=== PATIENT | female | born 2005 | race Caucasian/White ===

== ENCOUNTER 2023-05-15 13:22 | Outpatient (OUT) | payer BC, SELFPAY ==
--- NOTE | 2023-05-15 13:28 | US_ITS ---
The [address] [address] Patient Name: REBECA BLACKBURN MRN: [id number] date: 2005 Sex: F Assigned Patient Location: US Current Patient Location: Accession/Order Number: [id number] Exam Date: 05/15/2023 13:29 Report Date: 05/15/2023 15:17 At the request of: NENITA ADAIR Procedure: US OB transvaginal EXAMINATION: US OB transvaginal HISTORY: MISSED MENSES COMPARISON: No relevant comparison available. FINDINGS: GESTATIONAL SAC: Present and normal appearing. YOLK SAC: Present and normal appearing. POLE: Present and normal appearing. CARDIAC: Present. UTERUS: Normal size and appearance. OVARIES: Right: Normal. Left: Corpus lutein cyst. CERVIX: 5.1 cm in length and closed. CUL-DE-SAC: Normal. OTHER: None. AGE BY LMP: 8 weeks 2 days YUDEL[place] BY LMP: 12/23/2023 AGE BY US CRL: 7 weeks 6 days YUDELKA BY US CRL: 12/26/2023 US/US OB transvaginal IMPRESSION: 1. Single live intrauterine . Electronically authenticated by: JAKE SHIELDS Date: 05/15/2023 15:17
== END 2023-05-15 13:23 | disposition home or self-care (01) ==
LOC: US 13:23
PROVIDERS: Visit Provider Obstetrics & Gynecology
DX: Z34.91 Encounter for supervision of normal pregnancy, unspecified, first trimester (principal); N92.6 Irregular menstruation, unspecified
CPT/HCPCS: 76817

== ENCOUNTER 2023-05-27 09:11 | Outpatient (OUT) | payer BC, SELFPAY ==
[2023-05-27 10:03] LABS: Estimated Average Glucose 97 mg/dL
[2023-05-27 10:10] LABS: BOX Test Sent Out Y
[2023-05-27 10:28] LABS: Basophils Percent Auto 0.2 % (0.2-2.0); Eosinophils Absolute Auto 0.1 10^3/uL (0.0-0.7); Eosinophils Percent Auto 2.1 % (0.9-7.0); Hematocrit 39.2 % (36.0-48.0); Immature Granulocytes Abs Auto 0.01 10^3/uL (0.00-0.03); Immature Granulocytes Pct Auto 0.2 % (0.0-0.5); Lymphocytes Absolute Auto 1.2 10^3/uL (1.2-3.8); Lymphocytes Percent Auto 24.1 % (20.5-60.0); Mean Corpuscular HGB Conc 33.2 g/dL (29.9-35.2); Mean Corpuscular Volume 87.5 fL (81.0-99.0); Monocytes Absolute Auto 0.3 10^3/uL (0.3-0.8); Monocytes Percent Auto 6.4 % (1.7-12.0); Neutrophils Absolute Auto 3.2 10^3/uL (1.4-6.5); Platelet Count 203 10^3/uL (150-450); Red Blood Count 4.48 10^6/uL (4.20-5.40); Red Cell Distribution Width 13.6 % (11.0-15.0); White Blood Count 4.8 10^3/uL (4.0-11.0)
[2023-05-27 10:39] LABS: Thyroid Stimulating Hormone 1.664 uIU/mL (0.516-4.130)
[2023-05-28 05:07] LABS: HCV Ab Non Reactive (Non Reactive); HIV Ab/p24 Ag Screen Non Reactive (Non Reactive); Rubella Antibodies, IgG 2.75 index (Immune >0.99)
[2023-05-28 06:08] LABS: HBsAg Screen Negative (Negative)
[2023-05-28 11:12] LABS: Rapid Plasma Reagin, Quant Non Reactive (NonRea<1:1)
== END 2023-05-27 09:12 | disposition home or self-care (01) ==
LOC: LAB 09:15
PROVIDERS: Visit Provider Obstetrics & Gynecology
DX: Z34.80 Encounter for supervision of other normal pregnancy, unspecified trimester (principal); N92.6 Irregular menstruation, unspecified
CPT/HCPCS: 36415; 83036; 84443; 85025; 86592; 86706; 86762; 86803; 86850; 86900; 86901; 87086; 87389

== ENCOUNTER 2023-05-29 17:17 | Outpatient (OUT) | payer BC, SELFPAY ==
--- NOTE | 2023-05-29 | US_ITS ---
[address] [address] Patient Name: REBECA BLACKBURN MRN: [id number] date: 2005 Sex: F Assigned Patient Location: US Current Patient Location: Accession/Order Number: [id number] Exam Date: 05/29/2023 17:50 Report Date: 05/30/2023 07:35 At the request of: NENITA ADAIR Procedure: US OB transvaginal EXAMINATION: US OB transvaginal HISTORY: BLEEDING IN EARLY O20.9 COMPARISON: 05/15/2023 FINDINGS: Dunham intrauterine gestation Gestational sac: 3.97 cm, 9 weeks 2 days CRL: 2.7 cm, 9 weeks 5 days Yolk sac: 4.6 mm Heart rate: 140 bpm Cervix: Closed, 5.6 cm. Clinical age: 10 weeks 2 days Clinical YUDELKA: 12/23/2023 Ultrasound age: 9 weeks 4 days Ultrasound YUDELKA: 12/28/2023 The ovaries are normal in size, contour and echotexture. 2.1 cm cystic area in the left ovary, corpus luteal cyst suspected Uterus is normal, anteverted. US/US OB transvaginal IMPRESSION: [place]ham intrauterine gestation measuring 9 weeks 4 days Electronically authenticated by: DEIRDRE BANGURA Date: 05/30/2023 07:35
== END 2023-05-29 17:18 | disposition home or self-care (01) ==
LOC: US 17:18
PROVIDERS: Visit Provider Obstetrics & Gynecology
DX: O20.9 Hemorrhage in early pregnancy, unspecified (principal); Z3A.09 9 weeks gestation of pregnancy
CPT/HCPCS: 76817

== ENCOUNTER 2023-08-11 10:37 | Outpatient (OUT) | payer BC, SELFPAY ==
--- NOTE | 2023-08-11 10:45 | US_ITS ---
[address] [address] Patient Name: REBECA BLACKBURN MRN: [id number] date: 2005 Sex: F Assigned Patient Location: US Current Patient Location: Accession/Order Number: [id number] Exam Date: 08/11/2023 11:10 Report Date: 08/11/2023 15:32 At the request of: NENITA ADAIR Procedure: US OB anatomy EXAMINATION: US OB anatomy, US OB transvaginal HISTORY: Second Trimester Z34.92 COMPARISON: No relevant comparison available. TECHNIQUE: Transabdominal sonographic examination was performed for obstetrical and evaluation. FINDINGS: Number: 1 Heart Rate: Not recorded (tech error); active fetus during examination. Amniotic Fluid Volume: Subjectively normal Placental Location: Posterior with complete previa. Cervix Length: 4.6 cm, closed. ANATOMY: Normal Structures -cerebellum, choroid plexus, cisterna magna, lateral cerebral ventricles, orbits, midline falx, hard palate, four-chamber heart, RVOT, LVOT, stomach, kidneys, bladder, umbilical cord insertion into abdomen, three-vessel cord, cervical spine, thoracic spine, lumbar spine, sacral spine, right upper extremity, left upper extremity, right lower extremity, left lower extremity. SUBOPTIMALLY SEEN: None ABNORMALITIES: None BIOMETRY: BPD: 4.9 cm 20 weeks 6 days HC: 18.5 cm 20 weeks 6 days AC: 14.7 cm 20 weeks 0 days FL: 3.5 cm 21 weeks 1 days EFW:361.9 grams; 29% FL/AC: 23.9 FL/BPD: 71.9 HC/AC: 1.3 GESTATIONAL AGE: Age by EDC: 20 weeks 6 days YUDELKA by EDC: 12/23/2023 Age by current US: 20 weeks 5 days YUDELKA by current US: 12/24/2023 US/US OB anatomy IMPRESSION: 1. Single live intrauterine with growth detailed above. Electronically authenticated by: JAKE SHIELDS Date: 08/11/2023 15:32
--- NOTE | 2023-08-11 10:45 | US_ITS ---
[address] [address] Patient Name: REBECA BLACKBURN MRN: [id number] date: 2005 Sex: F Assigned Patient Location: US Current Patient Location: Accession/Order Number: [id number] Exam Date: 08/11/2023 11:10 Report Date: 08/11/2023 15:32 At the request of: NENITA ADAIR Procedure: US OB transvaginal EXAMINATION: US OB anatomy, US OB transvaginal HISTORY: Second Trimester Z34.92 COMPARISON: No relevant comparison available. TECHNIQUE: Transabdominal sonographic examination was performed for obstetrical and evaluation. FINDINGS: Number: 1 Heart Rate: Not recorded (tech error); active fetus during examination. Amniotic Fluid Volume: Subjectively normal Placental Location: Posterior with complete previa. Cervix Length: 4.6 cm, closed. ANATOMY: Normal Structures -cerebellum, choroid plexus, cisterna magna, lateral cerebral ventricles, orbits, midline falx, hard palate, four-chamber heart, RVOT, LVOT, stomach, kidneys, bladder, umbilical cord insertion into abdomen, three-vessel cord, cervical spine, thoracic spine, lumbar spine, sacral spine, right upper extremity, left upper extremity, right lower extremity, left lower extremity. SUBOPTIMALLY SEEN: None ABNORMALITIES: None BIOMETRY: BPD: 4.9 cm 20 weeks 6 days HC: 18.5 cm 20 weeks 6 days AC: 14.7 cm 20 weeks 0 days FL: 3.5 cm 21 weeks 1 days EFW:361.9 grams; 29% FL/AC: 23.9 FL/BPD: 71.9 HC/AC: 1.3 GESTATIONAL AGE: Age by EDC: 20 weeks 6 days YUDELKA by EDC: 12/23/2023 Age by current US: 20 weeks 5 days YUDELKA by current US: 12/24/2023 US/US OB transvaginal IMPRESSION: 1. Single live intrauterine with growth detailed above. Electronically authenticated by: JAKE SHIELDS Date: 08/11/2023 15:32
--- OUTSIDE RECORDS SUMMARY | 2023-09-16 19:19 | XMS_ITS | CCD ---
Author Name Unknown Address [address] [place] [address] [address] [place] [address] Organization [facility] Care Team Providers Care Key Ringer Name Role Phone Mishel Dimas Unavailable MISHEL DIMAS Primary Care Unavailable Ahmet Moreno Admitting Unavailable Ahmet Moreno Attending Unavailable Ahmet Moreno Attending Unavailable MISHEL DIMAS Primary Care Unavailable Ahmet Moreno Admitting Unavailable DO Mishel Dimas Primary Care Provider DO Mishel Dimas Attending Provider [phone] Mishel Dimas Admitting Unavailable Mishel Dimas Attending Unavailable Mishel Dimsa Primary Care Unavailable JOSEPH ELIZABETH Attending Unavailable Allergies Allergy Classification Reported Allergen(s) Allergy Type Date of Onset Reaction(s) Facility (1 source) No Known Medication Allergies; Translations: [No Known Medication Allergies] Propensity to adverse reactions to drug (disorder) [facility] Repository Medications Current Medications Medication Drug Class(es) Dates Sig (Normalized) Sig (Original) 24 hr buPROPion hydrochloride 300 mg extended release oral tablet (6 sources) Aminoketone take 1 tablet by mouth every twenty-four hours buPROPion HCl ER (XL) 300 MG 1 tablet in the morning Orally Once a day for 90 day(s) Active cephalexin 500 mg oral capsule (1 source) Cephalosporin Antibacterial Start: 11-02-2021 take 500 mg by mouth three times daily Cephalexin Active 500 MG PO Three times daily 30 November 02, 2021 1:00am Etonogestrel (6 sources) Progestin Nexplanon Active famotidine 20 mg oral tablet (3 sources) Histamine-2 Receptor Antagonist Famotidine 20 MG take 1 tablet by mouth once daily for 14 days Oral for 14 Days Active ondansetron 4 mg disintegrating oral tablet (1 source) Serotonin-3 Receptor Antagonist Start: 11-02-2021 take 4 mg by mouth three times daily Ondansetron Active 4 MG PO Three times daily 9 November 02, 2021 1:00am Completed/Discontinued Medications Medication Drug Class(es) Dates Sig (Normalized) Sig (Original) ibuprofen 600 mg oral tablet (1 source) Nonsteroidal Anti-inflammatory Drug Start: 03-28-2020 End: 11-02-2021 Ibuprofen Discontinued 600 MG PO Every 6 hours March 28, 2020 12:00am November 02, 2021 7:03pm do not exceed 4 doses in a 24 hour period NIFEdipine 30 mg osmotic 24 hr extended release oral tablet (1 source) Dihydropyridine Calcium Channel Finn Start: 03-25-2020 End: 03-28-2020 take 1 tablet by mouth once daily Nifedipine (Procardia Xl) 30 mg Tablet Extended Release 24hr Discontinued 30 MG PO Daily March 25, 2020 12:00am March 28, 2020 1:56pm Vit 84-Etly-Npwwx-Dha ( + Dha) 28 mg iron- 975 mcg-200 mg Combo Pack (1 source) Start: 02-13-2020 End: 11-02-2021 take 1 tablet by mouth once daily Vit 28-Dosk-Burxm-Dha ( + Dha) 28 mg iron- 975 mcg-200 mg Combo Pack Discontinued 1 TAB PO Daily February 13, 2020 12:00am November 02, 2021 7:03pm Problems Problem Classification Problem Date Documented Date Episodic/Chronic Abdominal pain (2 sources) Right lower quadrant pain; Translations: [Right upper quadrant pain] Episodic Hemorrhage during ; abruptio placenta; placenta previa (1 source) Third trimester bleeding; Translations: [Antepartum hemorrhage, unspecified, third trimester] 02-15-2020 Episodic Menstrual disorders (15 sources) Menorrhagia; Translations: [Excessive and frequent menstruation with regular cycle] Onset: 07-31-2021 Resolved: 07-31-2021 Chronic Mood disorders (8 sources) Moderate major depression, single episode; Translations: [Major depressive disorder, single episode, moderate] Onset: 07-31-2021 Resolved: 07-31-2021 Chronic Other complications of (1 source) Obstetric investigative finding; Translations: [Supervision of other high risk pregnancies, unspecified trimester] 02-15-2020 Episodic Other complications of (1 source) Complication occurring during ; Translations: [Other specified related conditions, unspecified trimester] 02-15-2020 Episodic Other nutritional; endocrine; and metabolic disorders (1 source) Abnormal weight gain Episodic Other nutritional; endocrine; and metabolic disorders (1 source) Abnormal weight gain; Translations: [Abnormal weight gain] Onset: 03-26-2023 Episodic Other screening for suspected conditions (not mental disorders or infectious disease) (2 sources) Encounter for screening for other metabolic disorders; Translations: [Encounter for screening for cardiovascular disorders] Episodic Other upper respiratory infections (7 sources) Chronic sinusitis; Translations: [Chronic sinusitis, unspecified] Chronic Residual codes; unclassified (1 source) Gestation period, 29 weeks; Translations: [29 weeks gestation of ] 02-15-2020 Episodic Syncope (1 source) Near syncope; Translations: [Syncope and collapse] 11-02-2021 Episodic Urinary tract infections (1 source) Urinary tract infectious disease; Translations: [Urinary tract infection, site not specified] 11-02-2021 Episodic Results Test Name Value Interpretation Reference Range Facil ity Alanine aminotransferase [En zymatic activity/volume] in Serum or PlasmaOrdered By: Mishel Dimas on 03-26-2023 ALT [Catalytic activity/Vol] 13 U/L 7-52 [facility] Albumin [Mass/volume] in Ser um or Plasma by Bromocresol green (BCG) dye binding methoOrdered By: Mishel Dimas on 03-26-2023 Albumin BCG dye [Mass/Vol] 4.8 g/dL 3.5-5.7 [facility] Alkaline phosphatase [Enzyma tic activity/volume] in Serum or PlasmaOrdered By: Mishel Dimas on 03-26-2023 ALP [Catalytic activity/Vol] 60 U/L 34-104 [facility] Aspartate aminotransferase [ Enzymatic activity/volume] in Serum or PlasmaOrdered By: Mishel Dimas on 03-26-2023 AST [Catalytic activity/Vol] 18 U/L 13-39 [facility] Basophils Auto (Bld) [#/Vol] Ordered By: Mishel Dimas on 03-26-2023 Basophils (Bld) [#/Vol] 0.0 10*3/uL 0.0-0.2 [facility] Basophils/100 WBC Auto (Bld) Ordered By: Mishel Dimas on 03-26-2023 Basophils/100 WBC (Bld) 0.4 % . [facility] Bilirubin.total [Mass/volume ] in Serum or PlasmaOrdered By: Mishel Dimas on 03-26-2023 Bilirubin [Mass/Vol] 0.5 mg/dL 0.3-1.0 [facility] Calcium [Mass/volume] in Ser um or PlasmaOrdered By: Mishel Dimas on 03-26-2023 Calcium [Mass/Vol] 9.5 mg/dL 8.6-10.3 [facility] Carbon dioxide, total [Moles /volume] in Serum or PlasmaOrdered By: Mishel Dimas on 03-26-2023 CO2 [Moles/Vol] 27.7 mmol/L 21.0-31.0 [facility] Chloride [Moles/volume] in S griffin or PlasmaOrdered By: Mishel Dimas on 03-26-2023 Chloride [Moles/Vol] 107 mmol/L 98-107 [facility] Complete Blood Count Auto Di ffon 03-26-2023 Basophils (Bld) [#/Vol] 0.0 10*3/uL Normal 0.0-0.2 [facility] Comment on above: Order Comment: Reaso n for Exam Wellness examination;Screening for metabolic disorder;Screen Result Comment: PERF ORMED BY: [place] [address] PATHOLOGIST ENGLISH [employer]ER ELYSE WHIPPLE M.D. Performed By: #### T SH3 wRFLX, CMP, CBC #### [address] Basophils/100 WBC (Bld) 0.4 % Normal . [facility] Comment on above: Order Comment: Reaso n for Exam Wellness examination;Screening for metabolic disorder;Screen Performed By: #### T SH3 wRFLX, CMP, CBC #### [facility] [address] Eosinophils (Bld) [#/Vol] 0.1 10*3/uL Normal 0.0-0.45 [facility] Comment on above: Order Comment: Reaso n for Exam Wellness examination;Screening for metabolic disorder;Screen Performed By: #### T SH3 wRFLX, CMP, CBC #### [facility] [address] Eosinophils/100 WBC (Bld) 2.7 % Normal . [facility] Comment on above: Order Comment: Reaso n for Exam Wellness examination;Screening for metabolic disorder;Screen Performed By: #### T SH3 wRFLX, CMP, CBC #### [address] Erythrocyte distribution wid th (RBC) [Ratio] 15.2 % Normal 11.9-15.3 [facility] Comment on above: Order Comment: Reaso n for Exam Wellness examination;Screening for metabolic disorder;Screen Performed By: #### T SH3 wRFLX, CMP, CBC #### [address] Hematocrit (Bld) [Volume fraction] 39.5 % Normal 34.0-46.4 [facility] Comment on above: Order Comment: Reaso n for Exam Wellness examination;Screening for metabolic disorder;Screen Performed By: #### T SH3 wRFLX, CMP, CBC #### [facility] [address] [place] [address] Hemoglobin (Bld) [Mass/Vol] 13.3 g/dL Normal 11.8-15. 4 [facility] Comment on above: Order Comment: Reaso n for Exam Wellness examination;Screening for metabolic disorder;Screen Performed By: #### T SH3 wRFLX, CMP, CBC #### [facility] [address] [place] [address] Lymphocytes (Bld) [#/Vol] 1.4 10*3/uL Normal 1.00-4.8 [facility] Comment on above: Order Comment: Reaso n for Exam Wellness examination;Screening for metabolic disorder;Screen Performed By: #### T SH3 wRFLX, CMP, CBC #### [facility] [address] Lymphocytes/100 WBC (Bld) 35.6 % Normal . [facility] Comment on above: Order Comment: Reaso n for Exam Wellness examination;Screening for metabolic disorder;Screen Performed By: #### T SH3 wRFLX, CMP, CBC #### [facility] [address] MCH (RBC) [Entitic mass] 28.5 pg Normal 24.7-34.3 [facility] Comment on above: Order Comment: Reaso n for Exam Wellness examination;Screening for metabolic disorder;Screen Performed By: #### T SH3 wRFLX, CMP, CBC #### [address] MCV (RBC) [Entitic vol] 85.1 fL Normal 80-100 [facility] Comment on above: Order Comment: Reaso n for Exam Wellness examination;Screening for metabolic disorder;Screen Performed By: #### T SH3 wRFLX, CMP, CBC #### [address] Mean Corpuscular HGB Conc 33.5 g/dL Normal 32.0-35.0 [facility] Comment on above: Order Comment: Reaso n for Exam Wellness examination;Screening for metabolic disorder;Screen Performed By: #### T SH3 wRFLX, CMP, CBC #### [facility] [address] [place] [address] [place] Monocytes (Bld) [#/Vol] 0.2 10*3/uL Normal 0.0-0.8 [facility] Comment on above: Order Comment: Reaso n for Exam Wellness examination;Screening for metabolic disorder;Screen Performed By: #### T SH3 wRFLX, CMP, CBC #### [place] [address] [place] Monocytes/100 WBC (Bld) 5.3 % Normal . [facility] Comment on above: Order Comment: Reaso n for Exam Wellness examination;Screening for metabolic disorder;Screen Performed By: #### T SH3 wRFLX, CMP, CBC #### [facility] [address] [place] [address] [place] Neutrophils (Bld) [#/Vol] 2.2 10*3/uL Normal 1.8-7.7 [facility] Comment on above: Order Comment: Reaso n for Exam Wellness examination;Screening for metabolic disorder;Screen Performed By: #### T SH3 wRFLX, CMP, CBC #### [facility] [address] Neutrophils/100 WBC (Bld) 56.0 % Normal . [facility] Comment on above: Order Comment: Reaso n for Exam Wellness examination;Screening for metabolic disorder;Screen Performed By: #### T SH3 wRFLX, CMP, CBC #### [facility] [address] NRBC% 0.3 /100{WBC} Normal 0-0.5 [facility] Comment on above: Order Comment: Reaso n for Exam Wellness examination;Screening for metabolic disorder;Screen Performed By: #### T SH3 wRFLX, CMP, CBC #### [facility] [address] [place] [address] [place] Platelet mean volume (Bld) [Entitic vol] 9.4 fL Normal 6.3-10.7 [facility] Comment on above: Order Comment: Reaso n for Exam Wellness examination;Screening for metabolic disorder;Screen Performed By: #### T SH3 wRFLX, CMP, CBC #### [facility] [address] [place] [address] [place] Platelets (Bld) [#/Vol] 185 10*3/uL Normal 150-450 [facility] Comment on above: Order Comment: Reaso n for Exam Wellness examination;Screening for metabolic disorder;Screen Performed By: #### T SH3 wRFLX, CMP, CBC #### [facility] [address] [place] [address] [place] RBC (Bld) [#/Vol] 4.65 10*6/uL Normal 3.60-5.00 [facility] Comment on above: Order Comment: Reaso n for Exam Wellness examination;Screening for metabolic disorder;Screen Performed By: #### T SH3 wRFLX, CMP, CBC #### [facility] [address] WBC (Bld) [#/Vol] 3.9 10*3/uL Normal 3.8-11.6 [facility] Comment on above: Order Comment: Reaso n for Exam Wellness examination;Screening for metabolic disorder;Screen Performed By: #### T SH3 wRFLX, CMP, CBC #### [facility] [address] Comprehensive Metabolic Pane tamia 03-26-2023 Albumin [Mass/Vol] 4.8 g/dL Normal 3.5-5.7 [facility] Comment on above: Order Comment: Reaso n for Exam Wellness examination;Screening for metabolic disorder;Screen Performed By: #### T SH3 wRFLX, CMP, CBC #### [facility] [address] Albumin/Globulin [Mass ratio] 1.9 {ratio} Normal [facility] Comment on above: Order Comment: Reaso n for Exam Wellness examination;Screening for metabolic disorder;Screen Performed By: #### T SH3 wRFLX, CMP, CBC #### [facility] [address] ALP [Catalytic activity/Vol] 60 U/L Normal 34-104 [facility] Comment on above: Order Comment: Reaso n for Exam Wellness examination;Screening for metabolic disorder;Screen Performed By: #### T SH3 wRFLX, CMP, CBC #### [facility] [address] ALT [Catalytic activity/Vol] 13 U/L Normal 7-52 [facility] Comment on above: Order Comment: Reaso n for Exam Wellness examination;Screening for metabolic disorder;Screen Performed By: #### T SH3 wRFLX, CMP, CBC #### [facility] [address] Anion gap [Moles/Vol] 9.8 mmol/L Normal 6.0-15.0 [facility] Comment on above: Order Comment: Reaso n for Exam Wellness examination;Screening for metabolic disorder;Screen Performed By: #### T SH3 wRFLX, CMP, CBC #### [facility] [address] AST [Catalytic activity/Vol] 18 U/L Normal 13-39 [facility] Comment on above: Order Comment: Reaso n for Exam Wellness examination;Screening for metabolic disorder;Screen Performed By: #### T SH3 wRFLX, CMP, CBC #### [facility] [address] Bilirubin [Mass/Vol] 0.5 mg/dL Normal 0.3-1.0 [facility] Comment on above: Order Comment: Reaso n for Exam Wellness examination;Screening for metabolic disorder;Screen Performed By: #### T SH3 wRFLX, CMP, CBC #### [facility] [address] Calcium [Mass/Vol] 9.5 mg/dL Normal 8.6-10.3 [facility] Comment on above: Order Comment: Reaso n for Exam Wellness examination;Screening for metabolic disorder;Screen Performed By: #### T SH3 wRFLX, CMP, CBC #### [facility] [address] [place] [address] [place] Chloride [Moles/Vol] 107 mmol/L Normal 98-107 [facility] Comment on above: Order Comment: Reaso n for Exam Wellness examination;Screening for metabolic disorder;Screen Performed By: #### T SH3 wRFLX, CMP, CBC #### [facility] [address] [place] [id number] [place] CO2 [Moles/Vol] 27.7 mmol/L Normal 21.0-31.0 [facility] Comment on above: Order Comment: Reaso n for Exam Wellness examination;Screening for metabolic disorder;Screen Performed By: #### T SH3 wRFLX, CMP, CBC #### [facility] [address] [place] [id number] [facility] Creatinine [Mass/Vol] 0.74 mg/dL Normal 0.60-1.20 [facility] Comment on above: Order Comment: Reaso n for Exam Wellness examination;Screening for metabolic disorder;Screen Performed By: #### T SH3 wRFLX, CMP, CBC #### [facility] [address] [place] [address] [place] GFR/1.73 sq M.predicted MDRD (S/P/Bld) [Vol rate/Area] mL/min/{1.73_m2} Normal [facility] Comment on above: Order Comment: Reaso n for Exam Wellness examination;Screening for metabolic disorder;Screen Performed By: #### T SH3 wRFLX, CMP, CBC #### [facility] [address] Globulin (S) [Mass/Vol] 2.5 g/dL Normal [facility] Comment on above: Order Comment: Reaso n for Exam Wellness examination;Screening for metabolic disorder;Screen Performed By: #### T SH3 CourtneyFLX, CMP, CBC #### [facility] [address] Glucose [Mass/Vol] 85 mg/dL Normal 70-100 [facility] Comment on above: Order Comment: Reaso n for Exam Wellness examination;Screening for metabolic disorder;Screen Result Comment: [facility] Glucose Reference Range is dependent on time and content of last meal. Glucose of more than 200 mg/dL in a nonstressed, ambulatory subject supports the diagnosis of Diabetes Mellitus. ADA recommended reference range Performed By: #### T SH3 CourtneyFLX, CMP, CBC #### [facility] [address] [place] [address] [place] Potassium [Moles/Vol] 4.5 mmol/L Normal 3.5-5.1 [facility] Comment on above: Order Comment: Reaso n for Exam Wellness examination;Screening for metabolic disorder;Screen Performed By: #### T SH3 wRFLX, CMP, CBC #### [facility] [address] [place] [id number] [place] Protein [Mass/Vol] 7.3 g/dL Normal 6.4-8.9 [facility] Comment on above: Order Comment: Reaso n for Exam Wellness examination;Screening for metabolic disorder;Screen Performed By: #### T SH3 wRFLX, CMP, CBC #### [facility] [address] [place] [address] [place] Sodium [Moles/Vol] 140 mmol/L Normal 136-145 [facility] Comment on above: Order Comment: Reaso n for Exam Wellness examination;Screening for metabolic disorder;Screen Performed By: #### T SH3 wRFLX, CMP, CBC #### [facility] [address] [place] [address] [place] Urea nitrogen [Mass/Vol] 13 mg/dL Normal 7-25 [facility] Comment on above: Order Comment: Reaso n for Exam Wellness examination;Screening for metabolic disorder;Screen Performed By: #### T SH3 wRFLX, CMP, CBC #### [facility] [address] [place] [address] [place] Creatinine [Mass/volume] in Serum or PlasmaOrdered By: Mishel Dimas on 03-26-2023 Creatinine [Mass/Vol] 0.74 mg/dL 0.60-1.20 [facility] Eosinophils Auto (Bld) [#/Vo l]Ordered By: Mishel Dimas on 03-26-2023 Eosinophils (Bld) [#/Vol] 0.1 10*3/uL 0.0-0.45 [facility] Eosinophils/100 WBC Auto (Bl d)Ordered By: Mishel Dimas on 03-26-2023 Eosinophils/100 WBC (Bld) 2.7 % . [facility] Erythrocyte distribution wid th Auto (RBC) [Ratio]Ordered By: Mishel Dimas on 03-26-2023 Erythrocyte distribution wid th (RBC) [Ratio] 15.2 % 11.9-15.3 [facility] Globulin Calc (S) [Mass/Vol] Ordered By: Mishel Dimas on 03-26-2023 Globulin (S) [Mass/Vol] 2.5 g/dL [facility] Glucose [Mass/volume] in Ser um or PlasmaOrdered By: Mishel Dimas on 03-26-2023 Glucose [Mass/Vol] 85 mg/dL 70-100 [facility] Comment on above: ADA recommended refe rence rangeRandom Glucose Reference Range is dependent on time and content of last meal. Glucose of more than 200 mg/dL in a nonstressed, ambulatory subject supports the diagnosis of Diabetes Mellitus. Hematocrit Auto (Bld) [Volum e fraction]Ordered By: Mishel Dimas on 03-26-2023 Hematocrit (Bld) [Volume fraction] 39.5 % 3 4.0-46.4 [facility] Hemoglobin [Mass/volume] in BloodOrdered By: Mishel Dimas on 03-26-2023 Hemoglobin (Bld) [Mass/Vol] 13.3 g/dL 11.8-15. 4 [facility] Leukocytes [#/volume] correc rigoberto for nucleated erythrocytes in Blood by Automated counOrdered By: Mishel Dimas on 03-26-2023 WBC corrected for nucl RBC A uto (Bld) [#/Vol] 3.9 10*3/uL 3.8-11.6 [facility] Lymphocytes Auto (Bld) [#/Vo l]Ordered By: Mishel Dimas on 03-26-2023 Lymphocytes (Bld) [#/Vol] 1.4 10*3/uL 1.00-4.8 [facility] Lymphocytes/100 WBC Auto (Bl d)Ordered By: Mishel Dimas on 03-26-2023 Lymphocytes/100 WBC (Bld) 35.6 % . [facility] MCH Auto (RBC) [Entitic mass ]Ordered By: Mishel Dimas on 03-26-2023 MCH (RBC) [Entitic mass] 28.5 pg 24.7-34.3 [facility] MCHC Auto (RBC) [Mass/Vol]Or dered By: Mishel Dimas on 03-26-2023 MCHC (RBC) [Mass/Vol] 33.5 g/dL 32.0-35.0 [facility] MCV Auto (RBC) [Entitic vol] Ordered By: Mishel Dimas on 03-26-2023 MCV (RBC) [Entitic vol] 85.1 fL 80-100 [facility] Monocytes Auto (Bld) [#/Vol] Ordered By: Mishel Dimas on 03-26-2023 Monocytes (Bld) [#/Vol] 0.2 10*3/uL 0.0-0.8 [facility] Monocytes/100 WBC Auto (Bld) Ordered By: Mishel Dimas on 03-26-2023 Monocytes/100 WBC (Bld) 5.3 % . [facility] Neutrophils Auto (Bld) [#/Vo l]Ordered By: Mishel Dimas on 03-26-2023 Neutrophils (Bld) [#/Vol] 2.2 10*3/uL 1.8-7.7 [facility] Neutrophils/100 WBC Auto (Bl d)Ordered By: Mishel Dimas on 03-26-2023 Neutrophils/100 WBC (Bld) 56.0 % . [facility] No Panel InformationOrdered By: Mishel Dimas on 03-26-2023 Estimated GFR (CKD-EPI) > 60.0 mL/Min [facility] Creatinine Clearanc e (Chem N/A [facility] Nucleated erythrocytes [Pres ence] in Blood by Automated countOrdered By: Mishel Dimas on 03-26-2023 Nucleated RBC Auto Ql (Bld) 0.3 /100{WBC} 0-0.5 [facility] Platelet mean volume Auto (B ld) [Entitic vol]Ordered By: Mishel Dimas on 03-26-2023 Platelet mean volume (Bld) [Entitic vol] 9.4 fL 6.3-10.7 [facility] Platelets Auto (Bld) [#/Vol] Ordered By: Mishel Dimas on 03-26-2023 Platelets (Bld) [#/Vol] 185 10*3/uL 150-450 [facility] Potassium [Moles/volume] in Serum or PlasmaOrdered By: Mishel Dimas on 03-26-2023 Potassium [Moles/Vol] 4.5 mmol/L 3.5-5.1 [facility] Protein [Mass/volume] in Ser um or PlasmaOrdered By: Mishel Dimas on 03-26-2023 Protein [Mass/Vol] 7.3 g/dL 6.4-8.9 [facility] RBC Auto (Bld) [#/Vol]Ordere d By: Mishel Dimas on 03-26-2023 RBC (Bld) [#/Vol] 4.65 10*6/uL 3.60-5.00 [facility] Serum or plasma albumin/glob ulin mass ratioOrdered By: Mishel Dimas on 03-26-2023 Albumin/Globulin [Mass ratio] 1.9 {ratio} [facility] Serum or plasma anion gap de terminationOrdered By: Mishel Dimas on 03-26-2023 Anion gap [Moles/Vol] 9.8 mmol/L 6.0-15.0 [facility] Sodium [Moles/volume] in Ser um or PlasmaOrdered By: Mishel Dimas on 03-26-2023 Sodium [Moles/Vol] 140 mmol/L 136-145 [facility] Thyroid Stim Hormone w/Rflxo n 03-26-2023 Thyroid Stim Hormone w/Rflx 1.38 u[iU]/mL Normal 0.45-5.33 [facility] Comment on above: Order Comment: Reaso n for Exam Wellness examination;Screening for metabolic disorder;Screen Result Comment: PERF ORMED BY: [place] [address] PATHOLOGIST ENGLISH TEACHER ELYSE WHIPPLE M.D. Performed By: #### T SH3 wRFLX, CMP, CBC #### [address] Thyrotropin [Units/volume] i n Serum or PlasmaOrdered By: Mishel Dimas on 03-26-2023 TSH Qn 1.38 m[IU]/L 0.45-5.33 [facility] Urea nitrogen [Mass/volume] in Serum or PlasmaOrdered By: Mishel Dimas on 03-26-2023 Urea nitrogen [Mass/Vol] 13 mg/dL 04-22 [facility] WBC Auto (Bld) [#/Vol]Ordere d By: Mishel Dimas on 03-26-2023 WBC (Bld) [#/Vol] 3.9 10*3/uL 3.8-11.6 [facility] Coding Summaryon 07-25-2022 Coding Summary HTMLBase 64 RwevstjcYEq4cDq+[id number] biAv [file] OiB (more content not included)... Normal [facility] Coding Summary HTMLBase 64 AnxwtlfpDZb2tWr+[id number] biAv [file] b2x (more content not included)... Normal [facility] ED Clinical Summaryon 2021 ED Clinical Summary [facility] [address] [place] [address] ED Clinical Summary PERSON INFORMATION Name: REBECA BLACKBURN Age: 16 Years Sex: FEMALE : 2005 MRN: Acct#: Visit Reason: Chest pain; CHEST PAIN, HEADACHE Arrival: 07/19/2022 20:06:01 Discharge: 07/19/2022 22:07:00 LOS: 000 02:01 Check In: 07/19/2022 20:06:01 Checkout:07/19/2022 22:07:00 Address: [address] [place] [address] PCP: MISHEL DIMAS PROVIDER INFORMATION Provider Role Assigned Unassigned Talat Hardy MD ED Provider 07/19/2022 20:07:54 Tripp RN, Martha Martinez ED Nurse 07/19/2022 20:21:39 VITALS INFORMATION Vital Sign Triage Latest Temperature Tympanic 36.7 DegC 36.7 DegC Temperature Temporal Artery Pulse Rate 100 bpm 92 bpm O2 Sat 97 % 97 % Respiratory Rate 22 br/min 16 br/min Blood Pressure /97 mmHg /97 mmHg MEDICAL INFORMATION Medications Given: Allergy Information: No Known Medication Allergies; No known allergies PHYSICIAN DOCUMENTATION Patient: REBECA BLACKBURN Age: 16 years Sex: FEMALE : 2005 Associated Diagnoses: Elevated blood pressure reading; Acute chest pain; Abdominal pain, epigastric Author: Talat Hardy MD Basic Information Time seen: Date & time 07/19/2022 20:05:00. History source: Patient. Arrival mode: Private vehicle, walking. Additional information: Chief Complaint from Nursing Triage Note : Chief Complaint 07/19/2022 20:18 EDT Chief Complaint c/o midsternal chest pain, desc 'burning that comes up' Denies SOB or sweats. Denies med hx other than preg 2 yrs ago. No med hx or daily meds. Ongoing past few days. Took ibuprofen earlier today. LMP month and a half ago . History of Present Illness 16-year-old female presented to ER for evaluation of chest pain and upper abdominal pain. Patient stated that she noted onset of symptoms approximately 1 week ago, possibly on Friday. She describes it as a burning sensation in the midsternal area. She noted pain, at the midsternal and in the epigastrium. She related that this morning, she when she woke up she had recall having pain at the epigastric area. She stated that she has taken some ibuprofen earlier in the day for this. She stated that the pain feels like a menstrual cramp with in the upper abdominal region. She denies any associated nausea, vomiting or diarrhea. She reported having persistent symptoms, in the last several days and especially today, noted throughout the day with normal activity. She stated that she did had gone to [place] today, and noted throughout the day, intermittently. Patient had no other treatment prior to arrival. She related that she had heartburn when she was about 2 and half years ago. She stated that symptoms were moderate with she did not have to take anything for those at the time. She indicated that heartburn symptoms and this pain is the similar She also recall that about 2 weeks ago, she took a home test, was negative. She stated that her last menstrual period was May 27. She stated that she is using the regular. Stated that her brother age 13 has epilepsy. Hypertension runs in the family although she states that she does not know her biological father's medical history Review of Systems Constitutional symptoms: No fever, no chills, no sweats. Skin symptoms: No jaundice, no rash. Eye symptoms: Negative except as documented in HPI. ENMT symptoms: Negative except as documented in HPI. Respiratory symptoms: Negative except as documented in HPI. Cardiovascular symptoms: Chest pain. Gastrointestinal symptoms: Abdominal pain, no nausea, no vomiting, no diarrhea. Genitourinary symptoms: No dysuria, no vaginal bleeding. Musculoskeletal symptoms: No Muscle pain, Hematologic/Lymphatic symptoms: Negative except as documented in HPI. Health Status Allergies: Allergic Reactions (Selected) No known allergies No Known Medication Allergies. Medications: (Selected) Documented Medications Documented [facility] Prescription: 0 Refill(s) ibuprofen: 0 Refill(s). Past Medical/ Family/ Social History Medical history: No active or resolved past medical history items have been selected or recorded., Reviewed as documented in chart. Surgical history: No active procedure history items have been selected or recorded., Reviewed as documented in chart, Adenoids. Family history: No family history items have been selected or recorded., Reviewed as documented in chart. Social history: Social & Psychosocial Habits Alcohol 05/25/2019 Alcohol Use: Never 07/19/2022 Alcohol Use: Never Substance Abuse 05/25/2019 Substance use: Never 07/19/2022 Substance use: Never Tobacco 05/25/2019 Smoking tobacco use: Never (less than 100 in l 07/19/2022 Smoking tobacco use: Never tobacco user Electronic Cigarette/Vaping 07/19/2022 Electronic Cigarette Use: Never , Reviewed as documented in chart. Problem lis (more content not included)... Normal [facility] ED Patient Summaryon 022 ED Patient Summary [facility] - Emergency Department [address] [place] [address] PATIENT DISCHARGE INSTRUCTIONS Patient Information Name: REBECA BLACKBURN Age: 16 Years Date of : 2005 Reason For Visit: Chest pain; CHEST PAIN, HEADACHE Arrival Time: 07/19/2022 20:06:01 Primary Care Physician: MISHEL DIMAS Attending Physician: Ahmet Moreno DO Comment: Visit Diagnosis: Diagnoses This Visit Abdominal pain, epigastric (R10.13) Acute chest pain (R07.9) Chest pain (61131794) Elevated blood pressure reading (R03.0) The Pharmacy at [facility] is open Friday through Friday from 9A to 6P and Friday and Friday from 9A to 5P Prescription Information: If you have been given a prescription for narcotics, seek immediate medical attention if you have any difficulty breathing or any sudden status changes such as confusion and sleepiness. If you or anyone you know is experiencing suicidal thoughts, mental health, alcohol and/or drug addiction problems; contact the [facility] 21/04 Crisis Hotline -Text 9XCLF to 027699. If you received any narcotics, sedation, or any other medication that causes drowsiness for the next 24 hours, unless otherwise directed: ? Do not drive a car. ? Do not operate machinery such as power tools, lawn mowers, drills, sewing machines, or stoves ? Avoid alcoholic beverages and drugs for allergies, nerves, or sleep ? Do not make important personal or business decisions or sign any legal documents With: Address: When: MISHEL DIMAS [address] [place], [place] [address] Business (1) Within 3 to 5 days Comments: You were seen in the emergency department for chest pain. Diagnostic workup in the ER did not reveal an obvious cause for your chest pain. It does not appear to be cardiac related based on our findings. Additional diagnostic workup and evaluation may be necessary to explain your symptoms. You should followup with your family doctor or PCP within the recommended time for reevaluation as instructed. Return to ER if you have any recurrent chest pain that concerns you especially with weakness, shortness of breath, dizziness or any other unusual symptoms. You were found to have an elevated blood pressure reading in the emergency department. It is unclear if your reading today is because that you were seen in the emergency department with increased level of concerns or that your blood pressure is elevated and not adequately under control. You should check your blood pressure routinely, daily. Contact your primary care provider if your blood pressure reading is consistently elevated. Medication Information: The exam and treatment you received today in the [facility] Emergency Department were for an urgent problem and are not intended as complete care. It is important for you to follow up with a doctor, nurse practitioner, or physician?s learning support assistant for ongoing care. If your symptoms become worse or you do not improve as expected and you are unable to reach your usual health care provider, you should return to the Emergency Department, we are available 24 hours a day. For those patients who have received Radiology results, the interpretation of your X-ray as given to you by our Emergency Department physician is only a preliminary report. The Radiologist will review your films and if there is a change in the diagnosis you will be notified by phone. Please make sure you have provided a working phone number so we can reach you if necessary. In the event that you had a lab culture while you were a patient in the Emergency Department, you will be notified by phone if there is a need to change your antibiotic. Please make sure you have provided a working phone number so we can reach you if necessary. [facility] Emergency Department has provided you with a complete list of medications post discharge. Please inform your painter assistant/provider of your visit and for further instruction on these medications. Any specific questions regarding your chronic medications and dosages should be discussed with your primary care physician(s) and/or pharmacist. New Medications [id number], [address], [place] [id number], [phone] famotidine (famotidine 20 mg oral tablet) 1 tab(s) Oral every day for 14 Days. Refills: 0. Additional medications on your home medication list not specifically addressed. Please contact the ordering physician if you have questions about these medications. ibuprofen Misc Prescription Visit Information Allergies: Substance Reaction Symptoms Type Comments No known allergies Drug No Known Medication Allergies Drug Vital Signs: Vitals and Measurements this Visit (last charted value for your 07/19/2022 visit) Vital Signs This Visit Temperature Tympanic: 36.7 DegC Apical Heart Rate: 70 bpm Per (more content not included)... Normal [facility] Progress Note - Nurseon 10-2 Progress Note - Nurse Pt provided with both written and verbal discharge instructions as well as follow up information. Pt verbalizes understanding and denies further questions or needs. Pt changes into clothing independently and ambulates upon discharge without issues. [Electronically Signed on: 07/19/2022 22:06 EDT] Martha Almaguer RN [Verified on: 07/19/2022 22:06 EDT] Tripp RN, Martha M Normal [facility] .Auto Diff 1on 07-19-2022 Auto [place] % 8 % Normal 1-12 [facility] Comment on above: Performed By: #### 1 [id number], [id number], 61952709, 1089883236, 9229057, 9940851, 5103362816, 1730162495 #### [facility] (DEFAULT) [address] [place] [address]35 Baso Abs# 0.0 x10 Normal 0.0-0.2 [facility] Comment on above: Performed By: #### 1 [id number], 7033905014, 92985610, 1919552485, 6738350, 4799345, 8410393681, 8442947331 #### [facility] (DEFAULT) [address] [place] [address] 50556 Basophils/100 WBC (Bld) 0.2 % Normal 0.2-2.0 [facility] Comment on above: Performed By: #### 1 [id number], 0447197593, 19157156, 1403815632, 2530886, 6237315, 7198821777, 6261749039 #### [facility] (DEFAULT) [address] [place] [address] 35637 Eos Abs# 0.1 x10 Normal 0.0-0.4 [facility] Comment on above: Performed By: #### 1 [id number], 0198793535, 42471170, 4960298676, 9690297, 0032059, 2073452835, 0922895821 #### [facility] (DEFAULT) [address] [place] [address] 75226 Eosinophils/100 WBC (Bld) 1.8 % Normal 0.9-4.0 [facility] Comment on above: Performed By: #### 1 [id number], 5418943475, 01838394, 7515990875, 0733610, 5459724, 2376506176, 7098906786 #### [facility] (DEFAULT) [address] [place] [address] 83338 Lymph Abs# 2.5 x10 Normal 1.3-2.9 [facility] Comment on above: Performed By: #### 1 [id number], 1483128337, 68457720, 9368032515, 3283353, 6523546, 2447245459, 6728341172 #### [facility] (DEFAULT) [address] [place] [address] 48473 Lymphocytes/100 WBC (Bld) 44 % Normal 14-48 [facility] Comment on above: Performed By: #### 1 [id number], 7673575811, 59393884, 0082356940, 0464528, 4300094, 6615703806, 6367534016 #### [facility] (DEFAULT) [address] [place] [address] [place] Abs# 0.4 x10 Normal 0.0-0.8 [facility] Comment on above: Performed By: #### 1 [id number], 1361698873, 39335699, 7865745675, 8729087, 9274407, 4218419391, 1446940795 #### [facility] (DEFAULT) [address] [place] [address] 90954 Neut Abs# 2.6 x10 Normal 1.5-9.2 [facility] Comment on above: Performed By: #### 1 245323160, 3745133102, 54477105, 1407120426, 9813966, 7754566, 6038668656, 8933104270 #### [facility] (DEFAULT) [address] [place] [address] 45557 Neutrophils/100 WBC (Bld) 47 % Normal 44-88 [facility] Comment on above: Performed By: #### 1 780572806, 5956526390, 74570603, 0803719964, 1978806, 1222217, 3017100290, 7329944149 #### [facility] (DEFAULT) [address] [place] [address] 80290 CBC w/ Auto Diffon 2 Erythrocyte distribution wid th (RBC) [Ratio] 14.6 % Normal 11.5-15.0 [facility] l Comment on above: Performed By: #### 1 [id number], 7789268276, 34071066, 9898985418, 2937080, 8862311, 2141626602, 7536622448 #### [facility] (DEFAULT) [address] [place] [address] Hematocrit (Bld) [Volume fraction] 40.2 % Normal 3 3.7-40.4 [facility] Comment on above: Performed By: #### 1 [id number], 3405497195, 20747081, 1918232773, 1465469, 1798089, 0498634281, 2471320701 #### [facility] (DEFAULT) [address] [place] [address] Hemoglobin (Bld) [Mass/Vol] 13.0 g/dL Normal 11.3-15. 9 [facility] Comment on above: Performed By: #### 1 [id number], 8322099495, 86059033, 2307403003, 0259509, 4367719, 6891522779, 4002315593 #### [facility] (DEFAULT) [address] [place] [address] Instr WBC 5.7 x10 Invalid Interpretation Code [facility] Comment on above: Performed By: #### 1 758054572, 1101036527, 73288751, 2019412001, 5288009, 8407714, 0689574889, 5008528001 #### [facility] (DEFAULT) [address] [place] [address] 95095 Man Diff? Auto Normal [facility] Comment on above: Performed By: #### 1 [id number], 4248748638, 56841356, 3275526942, 0099154, 6996561, 2401433427, 3227194166 #### [facility] (DEFAULT) [address] [place], [place] [address] MCH (RBC) [Entitic mass] 27 pg Normal 24-34 [facility] Comment on above: Performed By: #### 1 042648704, 3182614289, 24070942, 6585953460, 2370670, 9631466, 1440828223, 9027844108 #### [facility] (DEFAULT) [address] [place] [address] MCHC (RBC) [Mass/Vol] 32 g/dL Normal 26-37 [facility] Comment on above: Performed By: #### 1 213786187, 6119738221, 64191951, 4041416660, 4977991, 6476836, 7355277127, 9570383153 #### [facility] (DEFAULT) [address] [place] [address] MCV (RBC) [Entitic vol] 84 fL Normal 81-100 [facility] Comment on above: Performed By: #### 1 585165597, 7307342425, 71435342, 1876906772, 6800614, 8430429, 3328183695, 2053538950 #### [facility] (DEFAULT) [address] [place] [address] Platelet 282 x10 Normal 138-427 [facility] Comment on above: Performed By: #### 1 566576125, 7096245749, 95426831, 8794180800, 3808467, 3412742, 7765001216, 5542276274 #### [facility] (DEFAULT) [address] [place] [address] Platelet mean volume (Bld) [Entitic vol] 10.7 fL High 6.3-10.2 [facility] Comment on above: Performed By: #### 1 945428772, 5697014307, 32029478, 7428770420, 1593866, 7952867, 3261217397, 9375167167 #### [facility] (DEFAULT) [address] [place] [address] RBC 4.78 x10 Normal 3.70-5.30 [facility] Comment on above: Performed By: #### 1 966311259, 7008310530, 98281779, 7013154322, 1665045, 7937323, 5082397382, 8046068069 #### [facility] (DEFAULT) [address] [place] [address] 63848 WBC 5.7 x10 Normal 3.5-10.5 [facility] Comment on above: Performed By: #### 1 144870628, 7476861547, 92307743, 9017768345, 6858192, 4571173, 8790577988, 5347165704 #### [facility] (DEFAULT) [address] [place] [address] 27940 [facility] Standardon 07-19-2022 eGFR Non AA >60 Invalid Interpretation Code [facility] Comment on above: Performed By: #### 1 980577539, 4054663500, 32085252, 2791209893, 4935325, 0852588, 3345390516, 4911758822 #### [facility] (DEFAULT) [address] [place] [address] 08333 eGFR AA >60 Invalid Interpretation Code [facility] Comment on above: Result Comment: Airline Security Representative nicki Kidney disease could be indicated at eGFRs of less than 60 ml/min/1.73m2. Kidney Failure is indicated at less than 15 ml/min/1.73m2 Performed By: #### 1 229220426, 0162659475, 44073220, 0790400577, 0008794, 1787013, 0565023856, 1698877271 #### [facility] (DEFAULT) [address] [place] [address] 78551 Albumin [Mass/Vol] 4.5 g/dL Normal 3.5-5.[address] [facility] Comment on above: Performed By: #### 1 409986328, 3936008735, 50085517, 5958376370, 7491407, 5297553, 9796740532, 3687844857 #### [facility] (DEFAULT) [address] [place] [address] 92415 Albumin/Globulin [Mass ratio] 1.3 {ratio} Low 1.4-2 .6 [facility] Comment on above: Performed By: #### 1 272066595, 4930618349, 80013871, 5791272138, 6756892, 3924595, 3725400463, 0666006093 #### [facility] (DEFAULT) [address] [place] [address] 07201 Alk Phos 63 IU/L Normal 32-91 [facility] Comment on above: Performed By: #### 1 010743603, 2890441377, 27738704, 7329202111, 7802188, 6409832, 1157176725, 4779369709 #### [facility] (DEFAULT) [address] [place] [address] 52834 ALT [Catalytic activity/Vol] 15.0 U/L Normal 8.0-29. 0 [facility] Comment on above: Performed By: #### 1 869656457, 1434034865, 68932116, 7318990543, 1259181, 9282976, 3753692286, 7008855206 #### [facility] (DEFAULT) [address] [place] [address] 49993 Anion gap [Moles/Vol] 12.0 mmol/L Normal 5.0-19.0 [facility] Comment on above: Performed By: #### 1 493469570, 4843219833, 02995147, 0300770477, 1967919, 7124366, 8360990945, 9789098923 #### [facility] (DEFAULT) [address] [place] [address] 59987 AST [Catalytic activity/Vol] 23 U/L Normal 14-37 [facility] Comment on above: Performed By: #### 1 620032137, 9691114472, 71314179, 8558534308, 6165756, 4464021, 7610302565, 1110871697 #### [facility] (DEFAULT) [address] [place] [address] 47850 Bili Total 0.7 mg/dL Normal 0.0-2.0 [facility] Comment on above: Performed By: #### 1 524339644, 8622411960, 63415703, 5913494652, 0259584, 7066068, 0378979231, 9261477194 #### [facility] (DEFAULT) [address] [place] [address] 62249 Calcium [Mass/Vol] 9.2 mg/dL Normal 8.9-10.[address] [facility] Comment on above: Performed By: #### 1 151687727, 3355891680, 84219362, 4367966254, 2871313, 1925200, 5467700042, 0525442300 #### [facility] (DEFAULT) [address] [place] [address] 35595 Chloride [Moles/Vol] 106 mmol/L Normal 101-111 [facility] Comment on above: Performed By: #### 1 986571957, 4465765311, 31726391, 2894874597, 6822346, 8711947, 1703549688, 0244735521 #### [facility] (DEFAULT) [address] [place] [address] 09092 CO2 [Moles/Vol] 27 mmol/L Normal 21-32 [facility] Comment on above: Performed By: #### 1 865796235, 4718988082, 62640712, 5110317384, 9466798, 1603178, 8036568714, 8950722985 #### [facility] (DEFAULT) [address] [place] [address] 21046 Creatinine [Mass/Vol] 0.72 mg/dL Normal 0.30-1.00 [facility] Comment on above: Performed By: #### 1 669632961, 7672556269, 81164368, 0123686690, 6018045, 0785765, 0392691876, 5993910290 #### [facility] (DEFAULT) [address] [place] [address] 17401 Globulin (S) [Mass/Vol] 3.5 g/dL Normal 1.5-4.3 [facility] Comment on above: Performed By: #### 1 613826700, 9330460937, 47913880, 2508487071, 8297751, 7498115, 0908382249, 0229022784 #### [facility] (DEFAULT) [address] [place] [address] 92821 Glucose [Mass/Vol] 101.0 mg/dL Normal 56.0-144.0 [facility] Comment on above: Performed By: #### 1 290526288, 8747133357, 73877853, 8428146012, 1299694, 0949150, 3482304006, 0500432379 #### [facility] (DEFAULT) [address] [place] [address] 70026 Osmolality 281 mOsm/L Invalid Interpretation Code [facility] Comment on above: Performed By: #### 1 281721414, 1081174616, 84588919, 8412044627, 3709651, 8243118, 9898161081, 8303168506 #### [facility] (DEFAULT) [address] [place] [address] 54342 Potassium [Moles/Vol] 3.8 mmol/L Normal 3.6-5.1 [facility] Comment on above: Performed By: #### 1 608412251, 1177204871, 50870850, 4424291185, 1938592, 9231878, 5616305856, 1210812837 #### [facility] (DEFAULT) [address] [place] [address] 18145 Protein [Mass/Vol] 8.0 g/dL Normal 6.1-8.[address] [facility] Comment on above: Performed By: #### 1 606427777, 9536799739, 25940829, 3718308626, 0997540, 0554536, 3323433980, 4378067701 #### [facility] (DEFAULT) [address] [place] [address] 54968 Sodium [Moles/Vol] 141.0 mmol/L Normal 136.0-144.0 [facility] Comment on above: Performed By: #### 1 648088481, 6157624878, 13098449, 1909657947, 7085206, 0420616, 8793995455, 4119979692 #### [facility] (DEFAULT) [address] [place] [address] 77338 Urea nitrogen [Mass/Vol] 11 mg/dL Normal 8-26 [facility] Comment on above: Performed By: #### 1 560244297, 7960823643, 63787250, 9306926760, 8260063, 2621026, 0715133236, 2674186822 #### [facility] (DEFAULT) [address] [place] [address] 52876 Urea nitrogen/Creatinine [Mass ratio] 15.0 mg/mg Normal 4.6-16.2 [facility] Comment on above: Performed By: #### 1 405698165, 8982497819, 50364024, 5329943041, 1617521, 9084648, 9146913925, 9777573244 #### [facility] (DEFAULT) [address] [place] [address] 04603 ED Note - Physicianon 2021 ED Note - Physician Patient: TRUDY BLACKBURN Age: 16 years Sex: FEMALE : 2005 Associated Diagnoses: Elevated blood pressure reading; Acute chest pain; Abdominal pain, epigastric Author: Talat Hardy MD Basic Information Time seen: Date & time 07/19/2022 20:05:00. History source: Patient. Arrival mode: Private vehicle, walking. Additional information: Chief Complaint from Nursing Triage Note : Chief Complaint 07/19/2022 20:18 EDT Chief Complaint c/o midsternal chest pain, desc 'burning that comes up' Denies SOB or sweats. Denies med hx other than preg 2 yrs ago. No med hx or daily meds. Ongoing past few days. Took ibuprofen earlier today. LMP month and a half ago . History of Present Illness 16-year-old female presented to ER for evaluation of chest pain and upper abdominal pain. Patient stated that she noted onset of symptoms approximately 1 week ago, possibly on Friday. She describes it as a burning sensation in the midsternal area. She noted pain, at the midsternal and in the epigastrium. She related that this morning, she when she woke up she had recall having pain at the epigastric area. She stated that she has taken some ibuprofen earlier in the day for this. She stated that the pain feels like a menstrual cramp with in the upper abdominal region. She denies any associated nausea, vomiting or diarrhea. She reported having persistent symptoms, in the last several days and especially today, noted throughout the day with normal activity. She stated that she did had gone to [place] today, and noted throughout the day, intermittently. Patient had no other treatment prior to arrival. She related that she had heartburn when she was about 2 and half years ago. She stated that symptoms were moderate with she did not have to take anything for those at the time. She indicated that heartburn symptoms and this pain is the similar She also recall that about 2 weeks ago, she took a home test, was negative. She stated that her last menstrual period was May 27. She stated that she is using the regular. Stated that her brother age 13 has epilepsy. Hypertension runs in the family although she states that she does not know her biological father's medical history Review of Systems Constitutional symptoms: No fever, no chills, no sweats. Skin symptoms: No jaundice, no rash. Eye symptoms: Negative except as documented in HPI. ENMT symptoms: Negative except as documented in HPI. Respiratory symptoms: Negative except as documented in HPI. Cardiovascular symptoms: Chest pain. Gastrointestinal symptoms: Abdominal pain, no nausea, no vomiting, no diarrhea. Genitourinary symptoms: No dysuria, no vaginal bleeding. Musculoskeletal symptoms: No Muscle pain, Hematologic/Lymphatic symptoms: Negative except as documented in HPI. Health Status Allergies: Allergic Reactions (Selected) No known allergies No Known Medication Allergies. Medications: (Selected) Documented Medications [place] [facility] [place]: 0 Refill(s) ibuprofen: 0 Refill(s). Past Medical/ Family/ Social History Medical history: No active or resolved past medical history items have been selected or recorded., Reviewed as documented in chart. Surgical history: No active procedure history items have been selected or recorded., Reviewed as documented in chart, Adenoids. Family history: No family history items have been selected or recorded., Reviewed as documented in chart. Social history: Social & Psychosocial Habits Alcohol 05/25/2019 Alcohol Use: Never 07/19/2022 Alcohol Use: Never Substance Abuse 05/25/2019 Substance use: Never 07/19/2022 Substance use: Never Tobacco 05/25/2019 Smoking tobacco use: Never (less than 100 in l 07/19/2022 Smoking tobacco use: Never tobacco user Electronic Cigarette/Vaping 07/19/2022 Electronic Cigarette Use: Never , Reviewed as documented in chart. Problem list: Active Problems (2) Environmental allergies none , per nurse's notes. Physical Examination Vital Signs Vital Signs 07/19/2022 20:24 EDT Peripheral Pulse Rate 92 bpm Heart Rate Monitored 87 bpm Respiratory Rate 11 br/min LOW Systolic Blood Pressure 132 mmHg Diastolic Blood Pressure 97 mmHg HI Mean Arterial Pressure, Cuff 109 mmHg HI Mean Arterial Pressure Cuff 107 mmHg SpO2 100 % 07/19/2022 20:18 EDT Temperature Tympanic 36.7 DegC Peripheral Pulse Rate 100 bpm Respiratory Rate 22 br/min HI Systolic Blood Pressure 132 mmHg Diastolic Blood Pressure 97 mmHg HI SpO2 97 % Oxygen Therapy Room air . Measurements 07/19/2022 20:21 EDT Height/Length Dosing 158.000 cm Weight Dosing 61.200 kg 07/19/2022 20:18 EDT Height/Length Estimated 158.000 cm Weight Estimated 61.200 kg . General: Alert, no acute distress. Skin: Warm, dry, intact. Head: Normocephalic, atraumatic. Neck: Supple, trachea midline, no tenderness. Eye: Extraocular movements are intact, normal conjunctiv (more content not included)... Normal [facility] Extra Redon 07-19-2022 Tube Collected Yes Invalid Interpretation Code [facility] Comment on above: Performed By: #### 1 [id number], [id number], [id number], [id number], [id number], [id number], [id number], [id number] #### [facility] (DEFAULT) [address] [place] [address] Lipaseon 07-19-2022 Lipase Level 35.0 IU/L Normal 22.0-51.0 [facility] Comment on above: Performed By: #### 1 [id number], [id number], [id number], [id number], 9570853, 4015702, [id number], [id number] #### [facility] (DEFAULT) [address] [place] [address] Test Urine 1on U Preg Negative Normal [facility] Comment on above: Performed By: #### 2 [id number], [id number] #### [facility] (DEFAULT) [address] [place] [address] 96877 U Preg Internal Control Pass Normal [facility] Comment on above: Performed By: #### 2 [id number], [id number] #### [facility] (DEFAULT) [address] [place] [address] 73933 TnI HSon 07-19-2022 Troponin I High Sensitivity 3 pg/mL Normal <=15 [facility] Comment on above: Result Comment: Male Baseline Delta 1Hr (Note pg/mL=ng/L) <20pg/mL 50-60% >20pg/mL 20% Female Baseline Delta 1Hr <15pg/mL 50-60% >15pg/mL 20% Other Baseline Delta 1Hr <18ng/mL 50-60% >18ng/mL 20% ([employer] Guidelines April 2018) Performed By: #### 1 [id number], [id number], [id number], [id number], 6472005, 5786403, [id number], [id number] #### [facility] (DEFAULT) [address] [place] [address]24 UA w Micro, if Ind Standardo n 07-19-2022 Breakpoint UA Normal [facility] Comment on above: Performed By: #### 1 [id number], [id number], 22094114, [id number], 9089079, 8245959, [id number], [id number] #### [facility] (DEFAULT) [address] [place] [address] 30068 Color (U) Yellow Normal [facility] Comment on above: Performed By: #### 1 [id number], [id number], 83904564, 9260194533, 1558069, 6217898, 1120742603, [id number] #### [facility] (DEFAULT) [address] [place] [address] 84216 Glucose (U) [Mass/Vol] Negative Normal [facility] Comment on above: Performed By: #### 1 [id number], [id number], 33182148, 5822463878, 5742758, 9939523, 2971911086, [id number] #### [facility] (DEFAULT) [address] [place] [address] 11387 Ketones Ql (U) Negative Normal [facility] Comment on above: Performed By: #### 1 [id number], [id number], 45008449, 8352706656, 2101686, 6621873, 5815797010, [id number] #### [facility] (DEFAULT) [address] [place] [address] 41939 Micro? Not Indicated Invalid Interpretation Code [facility] Comment on above: Result Comment: Resu lt created by rule GL_MAGR_ADD_UA_MICRO Result created by rule GL_MAGR_ADD_UA_MICRO Performed By: #### 1 [id number], [id number], 16476407, 2945523347, 0950596, 4550967, 6903658641, [id number] #### [facility] (DEFAULT) [address] [place] [address] 78220 UA Bilirubin Negative Normal [facility] Comment on above: Performed By: #### 1 [id number], 8154260134, 33649758, 1662248572, 2479199, 5810337, 1326931144, [id number] #### [facility] (DEFAULT) [address] [place] [address] 20419 UA Blood Negative Normal NEGATIVE [facility] Comment on above: Performed By: #### 1 [id number], [id number], 85914302, 2788090072, 2202536, 2520642, 5117147752, [id number] #### [facility] (DEFAULT) [address] [place] [address] 60627 UA Clarity CLEAR Normal CLEAR [facility] Comment on above: Performed By: #### 1 [id number], 1127935176, 41197832, 6995362886, 8105648, 4507016, 7180139790, 2150707784 #### [facility] (DEFAULT) [address] [place] [address] 35962 UA Leuk Est Negative Normal NEGATIVE [facility] Comment on above: Performed By: #### 1 [id number], [id number], 73241470, 2077592008, 9464826, 7390356, 5494135665, [id number] #### [facility] (DEFAULT) [address] [place] [address] 06443 UA Nitrite Negative Normal NEGATIVE [facility] Comment on above: Performed By: #### 1 [id number], [id number], 43330690, 9941074342, 3188679, 0353073, 6658250409, 6658473716 #### [facility] (DEFAULT) [address] [place] [address] UA pH 7.0 Normal 5-8 [facility] Comment on above: Performed By: #### 1 [id number], [id number], 93052942, 8693030958, 5377728, 2813529, 2499554273, [id number] #### [facility] (DEFAULT) [address] [place] [address] 79117 UA Protein Negative Normal NEGATIVE [facility] Comment on above: Performed By: #### 1 [id number], 1106335625, 40303719, 3983125688, 9995043, 6950298, 6115808794, 1384496916 #### [facility] (DEFAULT) [address] [place], [place] [address] UA Spec Grav 1.020 Normal 1.001-1.035 [facility] Comment on above: Performed By: #### 1 [id number], [id number], 08939208, 8345377851, 7760316, 8095742, 1390725007, [id number] #### [facility] (DEFAULT) [address] [place] [address] 24173 UA Urobilinogen 1.0 mg/dL Normal 0.2-1.0 [facility] Comment on above: Performed By: #### 1 [id number], [id number], 88847094, 2000258284, 1958353, 0411703, 9596721891, [id number] #### [facility] (DEFAULT) [address] [place] [address] 58044 Urine Source Clean Catch Normal [facility] Comment on above: Performed By: #### 1 [id number], [id number], 21170173, 9747376033, 6083886, 1372317, 9487536511, [id number] #### [facility] (DEFAULT) [address] [place] [address]181 Vital Signs Date Time Vital Sign Value Performing Clinician Facility 04-07-2023 14:30-0400 Body weight 69.85 kg Mishel Masseyestefania Other [facility] 04-07-2023 14:30-0400 Diastolic blood pressure 83 mm[Hg] Mishel Masseyestefania Other [facility] 04-07-2023 14:30-0400 Respiratory rate 18 /min Mishel Masseyestefania Other [facility] 04-07-2023 14:30-0400 SaO2% (BldA) [Mass fraction] 99 % Mishel Masseyestefania Other [facility] 04-07-2023 14:30-0400 Systolic blood pressure 135 mm[Hg] Mishel Branestefania Other [facility] 07-31-2021 15:30-0400 Body height 160.02 cm Mishel Dimas Other [facility] 07-31-2021 15:30-0400 Body mass index (BMI) [Ratio] 22.67 kg/m2 Mishel Dimas Other [facility] 07-31-2021 15:30-0400 Body temperature 98.2 [degF] Mishel Dimas Other [facility] 07-31-2021 15:30-0400 Body weight 58.06 kg Mishel Dimas Other [facility] 07-31-2021 15:30-0400 Diastolic blood pressure 101 mm[Hg] Mishel Dimas Other [facility] 07-31-2021 15:30-0400 Respiratory rate 18 /min Mishel Dimas Other [facility] 07-31-2021 15:30-0400 SaO2% (BldA) [Mass fraction] 100 % Mishel Dimas Other [facility] 07-31-2021 15:30-0400 Systolic blood pressure 135 mm[Hg] Mishel Dimas Other [facility] Other Encounters Encounter Date Encounter Type Care Provider Facility Start: 08-18-2023 End: 08-18-2023 ambulatory JOSEPH ELIZABETH Not Available Start: 04-07-2023 End: 04-07-2023 ambulatory Mishel Dimas Other [facility] Start: 04-07-2023 Encounter for genera l adult medical examination without abnormal findings Mishel Dimas [facility] Start: 04-07-2023 Periodic preventive med est patient 18-39 yrs Mishel Dimas [facility] Start: 03-26-2023 End: 03-26-2023 ambulatory Mishel Dimas Facility:[facility] Start: 03-26-2023 End: 03-26-2023 ambulatory DO Mishel Dimas Work Phone: [facility] Work Phone: Start: 03-26-2023 End: 03-26-2023 Patient encounter procedure DO Mishel Dimas Work Phone: [facility] [place] Work Phone: Start: 03-19-2023 End: 03-19-2023 ambulatory Mishel Dimas Other [facility] Start: 03-19-2023 Encounter for other specified special examinations Mishel Dimas [facility] Start: 03-19-2023 Telephone encounter Mishel Loo i [facility] Start: 08-06-2022 End: 08-06-2022 ambulatory Mishel Dimas Other [facility] Start: 08-06-2022 Telephone encounter Mishel Loo i [employer] [facility] Start: 07-29-2022 End: 07-29-2022 ambulatory Mishel Dimas Other [facility] Start: 07-29-2022 Telephone encounter Mishel Loo i [facility] Start: 07-22-2022 End: 07-22-2022 ambulatory Mishel Dimas Other [facility] Start: 07-22-2022 Telephone encounter Mishel Loo i [facility] Start: 07-19-2022 End: 07-20-2022 Emergency department patient visit Ahmet Moreno Facility:[facility] Start: 07-19-2022 End: 07-20-2022 ambulatory MISHEL DIMAS Facility:[facility] Start: 11-05-2021 End: 11-05-2021 ambulatory Mishel Dimas Other [facility] Start: 11-05-2021 Telephone encounter Mishel Rasheedruth candelaria [facility] Start: 07-31-2021 End: 07-31-2021 ambulatory Mishel Dmias Other [facility] Start: 07-31-2021 Office outpatient vi sit 25 minutes Mishel Rasheedruthbari [facility] Immunizations Immunization Date Immunization Notes Care Provider Fa cili 05-07-2021 meningococcal polysaccharide (groups A, C, Y and W-135) diphtheria toxoid conjugate vaccine (MCV4P) Mishel Rasheedsaran Other [facility] 03-28-2020 tetanus toxoid, redu stanislaw diphtheria toxoid, and acellular pertussis vaccine, adsorbed DO Mishel Diams Work Phone: [facility] 04-08-2016 poliovirus vaccine, inactivated Mishel Dimas Other [facility] 04-08-2016 human papilloma viru s vaccine, quadrivalent Mishel Rasheedruthbari Other [facility] 04-08-2016 meningococcal polysaccharide (groups A, C, Y and W-135) diphtheria toxoid conjugate vaccine (MCV4P) Mishel Rasheedsaran Other [facility] 04-08-2016 measles, mumps and rubella virus vaccine Mishel Rasheedsaran Other [facility] 04-08-2016 varicella virus vaccine Rajesh Dimas Other [facility] Other Payers Date Payer Category Payer Self-pay [id number] 2022 Unknown HUM [id number] 1 2017 [facility] [id number] [id number] 2014 [facility] CBKAN [id number] 2003 Unknown [id number] 2003 Unknown [id number] 2003 Unknown [id number] Unknown [id number] Social History Date Type Detail Facility Sex Assigned At [facility]: [facility] Start: 2003 Sex Assigned At Female F [facility] Evaluation note 04-07-2023 Note Date & Type Note Facility 04-07-2023 Evaluation note Encounter Date Diagnosis Assessment Notes Mar, Wellness examination (ICD-10 - Z00.00) Overall, patient is doing well. She does mention concerns about her weight -- her lab results do not lend any clues. I suspect much of this is diet related, so we've had extensive discussion regarding healthy diet, exercise, and weight loss strategy. She will RTC at her convenience if she continues to struggle. Otherwise, continue current care. [facility] Other Evaluation note 03-19-2023 Note Date & Type Note Facility 03-19-2023 Evaluation note Encounter Date Diagnosis Assessment Notes Feb, Wellness examination (ICD-10 - Z01.89) Feb, Screening for metabolic disorder (ICD-10 - Z13.228) Feb, Screening for cardiovascular condition (ICD-10 - Z13.6) Feb, Weight gain (ICD-10 - R63.5) [facility] Other Evaluation note 07-29-2022 Note Date & Type Note Facility 07-29-2022 Evaluation note Encounter Date Diagnosis Assessment Notes Jun, RLQ abdominal pain (ICD-10 - R10.31) Jun, RUQ abdominal pain (ICD-10 - R10.11) [facility] Other Clinical Note 07-20-2022 Note Date & Type Note Facility 07-20-2022 Note Education Materials Elevated Blood Pressure Reading High blood pressure (hypertension) is when the force of blood pumping through the arteries is too strong. The arteries are the blood vessels that carry blood from the heart throughout the body. Hypertension forces the heart to work harder to pump blood and may cause arteries to become narrow or stiff. Untreated or uncontrolled hypertension can cause a heart attack, heart failure, a stroke, kidney disease, and other problems. A blood pressure reading consists of a higher number over a lower number. Ideally, your blood pressure should be below 120/80. The first ( top ) number is called the systolic pressure. It is a measure of the pressure in your arteries as your heart beats. The second ( bottom ) number is called the diastolic pressure. It is a measure of the pressure in your arteries as the heart relaxes. What are the causes? The exact cause of this condition is not known. There are some conditions that result in or are related to high blood pressure. What increases the risk? Some risk factors for high blood pressure are under your control. The following factors may make you more likely to develop this condition: ? Smoking. ? Having type 2 diabetes mellitus, high cholesterol, or both. ? Not getting enough exercise or physical activity. ? Being overweight. ? Having too much fat, sugar, calories, or salt (sodium) in your diet. ? Drinking too much alcohol. Some risk factors for high blood pressure may be difficult or impossible to change. Some of these factors include: ? Having chronic kidney disease. ? Having a family history of high blood pressure. ? Age. Risk increases with age. ? Race. You may be at higher risk if you are . ? Gender. Men are at higher risk than women before age 45. After age 65, women are at higher risk than men. ? Having obstructive sleep apnea. ? Stress. What are the signs or symptoms? High blood pressure may not cause symptoms. Very high blood pressure (hypertensive crisis) may cause: ? Headache. ? Anxiety. ? Shortness of breath. ? Nosebleed. ? Nausea and vomiting. ? Vision changes. ? Severe chest pain. ? Seizures. How is this diagnosed? This condition is diagnosed by measuring your blood pressure while you are seated, with your arm resting on a flat surface, your legs uncrossed, and your feet flat on the floor. The cuff of the blood pressure monitor will be placed directly against the skin of your upper arm at the level of your heart. It should be measured at least twice using the same arm. Certain conditions can cause a difference in blood pressure between your right and left arms. Certain factors can cause blood pressure readings to be lower or higher than normal for a short period of time: ? When your blood pressure is higher when you are in a health care provider's office than when you are at home, this is called white coat hypertension. Most people with this condition do not need medicines. ? When your blood pressure is higher at home than when you are in a health care provider's office, this is called masked hypertension. Most people with this condition may need medicines to control blood pressure. If you have a high blood pressure reading during one visit or you have normal blood pressure with other risk factors, you may be asked to: ? Return on a different day to have your blood pressure checked again. ? Monitor your blood pressure at home for 1 week or longer. If you are diagnosed with hypertension, you may have other blood or imaging tests to help your health care provider understand your overall risk for other conditions. How is this treated? This condition is treated by making healthy lifestyle changes, such as eating healthy foods, exercising more, and reducing your alcohol intake. Your health care provider may prescribe medicine if lifestyle changes are not enough to get your blood pressure under control, and if: ? Your systolic blood pressure is above 130. ? Your diastolic blood pressure is above 80. Your personal target blood pressure may vary depending on your medical conditions, your age, and other factors. Follow these instructions at home: Eating and drinking ? Eat a diet that is high in fiber and potassium, and low in sodium, added sugar, and fat. An example eating plan is called the DASH (Dietary Approaches to Stop Hypertension) diet. To eat this way: ? Eat plenty of fresh fruits and vegetables. Try to fill one half of your plate at each meal with fruits and vegetables. ? Eat whole grains, such as whole-wheat pasta, brown rice, or whole-grain bread. Fill about one fourth of your plate with whole grains. ? Eat or drink low-fat dairy products, such as skim milk or low-fat yogurt. ? Avoid fatty cuts of meat, processed or cured meats, and poultry with skin. Fill about one fourth of your plate with lean proteins, such as fish, chicken without skin, beans, eggs, (more content not included)... [facility] Evaluation note 07-31-2021 Note Date & Type Note Facility 07-31-2021 Evaluation note Encounter Date Diagnosis Assessment Notes Jul, Moderate single current episode of major depressive disorder (ICD-10 - F32.1) Controlled. Continue current care. Immediate medical attention for any SI/HI or other change/worsenin g. Call with questions/june rns. Jul, Menorrhagia with regular cycle (ICD-10 - N92.0) Suspect this may be related to her Nexplanon. I've recommended she discuss with her linseed oil press tender, Dr. Harris, whether or not this should be removed and if she should consider alternative forms of contraception. I've offered to check CBC, Iron, and TSH, but patient prefers to meet with Dr. Harris first. 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 Work Phone: Summary Purpose Family History No Family History Records Found Relationship Condition Age at Onset Recorded Date/T jim Not Specified No pertinent family history Unknown Advance Directives No Advanced Directives Records Found Advance Directive Response Recorded Date/ Time Advance Directives No October 12:00pm Additional Source Comments REASON FOR VISIT (unrecogniz ed section and content) 6 month Follow uper folllow upER follow upORDERNo Informationlab requestannual -Concerns with weight gain INFORMATION SOURCE (unrecogn ized section and content) DATE CREATED AUTHOR 07/26/2022 [facility] DATE CREATED AUTHOR AUTHOR'S ORGANIZ ATION 04/05/2023 [facility] DATE CREATED AUTHOR AUTHOR'S ORGANIZ ATION 08/19/2023 [facility] EPIC Care Teams (unrecognized sec tion and content) Team Status: Active Member Role Status Dates Mishel Dimas DO Primary Care Provider Active Team Status: Inactive Member Role Status Dates Mishel Dimas DO Primary Care Provider, Attendin g Provider Active Goals (unrecognized section and content) Goals may be documented in a n alternate section FOR RECORDS PERTAINING TO PATIENTS WHO ARE OR HAVE BEEN ENROLLED IN A CHEMICAL DEPENDENCY/SUBSTANCEABUSE PROGRAM, SOME INFORMATION MAY BE OMITTED. This clinical summary was aggregated from multiple sources. Caution should be exercised in using it in the provision of clinical care. This summary normalizes information from multiple sources, and as a consequence, information in this document may materially change the coding, format and clinical context of patient data. In addition, data may be omitted in some cases. CLINICAL DECISIONS SHOULD BE BASED ON THE PRIMARY CLINICAL RECORDS. [employer] [facility]. provides no warranty or guarantee of the accuracy or completeness of information in this document.
== END 2023-08-11 10:38 | disposition home or self-care (01) ==
LOC: US 10:37
PROVIDERS: Visit Provider Obstetrics & Gynecology
DX: Z34.92 Encounter for supervision of normal pregnancy, unspecified, second trimester (principal); Z3A.20 20 weeks gestation of pregnancy
CPT/HCPCS: 76805; 76817

== ENCOUNTER 2024-01-22 08:20 | Outpatient (OUT) | payer BC, SELFPAY ==
--- NOTE | 2024-01-22 08:23 | US_ITS ---
The [address] [address] Patient Name: REBECA BLACKBURN MRN: [id number] date: 2005 Sex: F Assigned Patient Location: [facility] Current Patient Location: [facility] Accession/Order Number: [id number] Exam Date: 01/22/2024 08:24 Report Date: 01/22/2024 09:26 At the request of: NENITA ADAIR Procedure: US pelvis w/ transvaginal EXAM: Pelvic ultrasound HISTORY: . HEMORRHAGE . COMPARISON: None. TECHNIQUE: Transabdominal and transvaginal scanning was performed FINDINGS: Scanning of the pelvis demonstrates uterus to measure 8.9 x 4.4 x 6.5 cm. Endometrial complex measures 5 mm and appears homogeneous. Right ovary measures 3.2 x 3.2 x 1.9 cm. Color-flow is noted. Resistive indexes 0.6. Follicles are noted. Left ovary measures 3.2 x 2 x 3.3 cm. Color-flow is noted. Resistive indexes 0.5. Follicles are noted. No fluid is noted in the cul-de-sac. US/US pelvis w/ transvaginal IMPRESSION: Normal ultrasound of the pelvis. Electronically authenticated by: DEIRDRE ROSENBAUM Date: 01/22/2024 09:26
== END 2024-01-22 08:21 | disposition home or self-care (01) ==
LOC: NOMS 08:20
PROVIDERS: Visit Provider Obstetrics & Gynecology
DX: O72.1 Other immediate postpartum hemorrhage (principal)
CPT/HCPCS: 76830; 76856

== ENCOUNTER 2024-04-12 12:39 | Outpatient (OUT) | payer BC, SELFPAY ==
[2024-04-12 13:23] LABS: Basophils Percent Auto 0.3 % (0.2-2.0); Eosinophils Absolute Auto 0.1 10^3/uL (0.0-0.7); Eosinophils Percent Auto 1.8 % (0.9-7.0); Hemoglobin 13.3 g/dL (12.0-16.0); Immature Granulocytes Abs Auto 0.01 10^3/uL (0.00-0.03); Immature Granulocytes Pct Auto 0.2 % (0.0-0.5); Lymphocytes Absolute Auto 1.6 10^3/uL (1.2-3.8); Lymphocytes Percent Auto 26.4 % (20.5-60.0); Mean Corpuscular HGB Conc 32.4 g/dL (29.9-35.2); Mean Corpuscular Hemoglobin 29.2 pg (26.7-34.0); Mean Corpuscular Volume 89.9 fL (81.0-99.0); Mean Platelet Volume 10.9 fL (9.5-13.5); Monocytes Absolute Auto 0.4 10^3/uL (0.3-0.8); Monocytes Percent Auto 7.2 % (1.7-12.0); Neutrophils Absolute Auto 3.9 10^3/uL (1.4-6.5); Neutrophils Percent Auto 64.1 % (43.0-75.0); Platelet Count 206 10^3/uL (150-450); Red Blood Count 4.56 10^6/uL (4.20-5.40); Red Cell Distribution Width 13.2 % (11.0-15.0); White Blood Count 6.1 10^3/uL (4.0-11.0)
[2024-04-12 14:28] LABS: Percent Iron Saturation 6.1 %
[2024-04-12 14:31] LABS: Free T4 1.19 ng/dL (0.76-1.46)
[2024-04-12 14:35] LABS: Thyroid Stimulating Hormone 2.308 uIU/mL (0.358-3.740)
== END 2024-04-12 12:40 | disposition home or self-care (01) ==
LOC: LAB 12:40
PROVIDERS: Visit Provider Student in an Organized Health Care Education/Training Program
DX: E03.9 Hypothyroidism, unspecified (principal); N92.0 Excessive and frequent menstruation with regular cycle; Z86.39 Personal history of other endocrine, nutritional and metabolic disease; Z13.0 Encounter for screening for diseases of the blood and blood-forming organs and certain disorders involving the immune mechanism
CPT/HCPCS: 36415; 83540; 83550; 84439; 84443; 85025

== ENCOUNTER 2024-06-18 09:53 | Outpatient (OUT) | payer BC, SELFPAY ==
--- NOTE | 2024-06-18 | US_ITS ---
[address] [address] Patient Name: REBECA BLACKBURN MRN: [id number] date: 2005 Sex: F Assigned Patient Location: Current Patient Location: Accession/Order Number: [id number] Exam Date: 06/18/2024 10:05 Report Date: 06/20/2024 20:49 At the request of: NENITA ADAIR Procedure: US pelvis w/ transvaginal PROCEDURE: US PELVIS W/ TRANSVAGINAL, 06/18/2024 10:05 AM EDT CLINICAL INDICATIONS: Pelvic pain, abnormal uterine bleeding for 2 weeks, prior section. 2 para 2. LMP 05/23/2024. COMPARISON: 01/22/2024. TECHNIQUE: Transabdominal, transvaginal pelvic sonogram, grayscale color and spectral assessment. FINDINGS: Uterus: 9.0 x 4.3 x 5.2 cm. Endometrial echo complex 0.3 cm. Normal uterine sonographic morphology. No focal abnormality demonstrated. Right ovary: 3.8 x 2.3 x 3.3 cm volume 15 mL. Subcentimeter follicle seen. Normal sonographic morphology. Left ovary: 3.4 x 2.2 x 2.7 cm, volume 10 mL. Subcentimeter follicle seen. Normal sonographic morphology. DUPLEX PELVIC VASCULATURE: There is intact flow within the ovarian tissue bilaterally by color-flow assessment. Arterial spectral tracing is identified from within. Right resistive index 0.43, left 0.52. No significant free fluid. US/US pelvis w/ transvaginal IMPRESSION: 1. Normal uterine and bilateral ovarian sonographic morphology. 2. No pathology demonstrated. Electronically authenticated by: HERMELINDA SHERIDAN Date: 06/20/2024 20:49
[2024-06-18 11:08] LABS: Basophils Percent Auto 0.5 % (0.2-2.0); Eosinophils Absolute Auto 0.2 10^3/uL (0.0-0.7); Eosinophils Percent Auto 3.9 % (0.9-7.0); Hematocrit 42.9 % (36.0-48.0); Hemoglobin 14.2 g/dL (12.0-16.0); Immature Granulocytes Abs Auto 0.01 10^3/uL (0.00-0.03); Immature Granulocytes Pct Auto 0.2 % (0.0-0.5); Lymphocytes Absolute Auto 1.6 10^3/uL (1.2-3.8); Lymphocytes Percent Auto 38.3 % (20.5-60.0); Mean Corpuscular HGB Conc 33.1 g/dL (29.9-35.2); Mean Corpuscular Hemoglobin 29.5 pg (26.7-34.0); Mean Platelet Volume 11.1 fL (9.5-13.5); Monocytes Absolute Auto 0.2 10^3/uL (0.3-0.8); Monocytes Percent Auto 4.4 % (1.7-12.0); Neutrophils Absolute Auto 2.2 10^3/uL (1.4-6.5); Neutrophils Percent Auto 52.7 % (43.0-75.0); Platelet Count 209 10^3/uL (150-450); Red Blood Count 4.82 10^6/uL (4.20-5.40); Red Cell Distribution Width 12.7 % (11.0-15.0); White Blood Count 4.1 10^3/uL (4.0-11.0)
[2024-06-18 11:25] LABS: Estimated Average Glucose 91 mg/dL; Glycohemoglobin A1C 4.8 % (4.5-6.2)
[2024-06-18 11:59] LABS: Free T4 1.14 ng/dL (0.76-1.46)
[2024-06-18 13:40] LABS: Thyroid Stimulating Hormone 0.929 uIU/mL (0.358-3.740)
[2024-06-18 13:41] LABS: HCG Quantitative <1 mIU/mL
[2024-06-19 04:08] LABS: FSH 6.1 mIU/mL (.); Luteinizing Hormone(LH) 14.4 mIU/mL (.)
[2024-06-24 02:08] LABS: DHEA, Serum 729 ng/dL (31-701)
== END 2024-06-18 09:54 | disposition home or self-care (01) ==
LOC: US 09:53
PROVIDERS: Visit Provider Obstetrics & Gynecology
DX: N92.0 Excessive and frequent menstruation with regular cycle (principal)
CPT/HCPCS: 36415; 76830; 76856; 82626; 82627; 83001; 83002; 83036; 84439; 84443; 84702; 85025

== ENCOUNTER 2024-08-13 14:31 | Outpatient (OUT) | payer BC, SELFPAY | END 2024-08-13 14:32 | disposition home or self-care (01) | LOC: LAB 14:35 | PROVIDERS: Visit Provider Obstetrics & Gynecology | DX: R79.89 Other specified abnormal findings of blood chemistry (principal); N92.0 Excessive and frequent menstruation with regular cycle | CPT/HCPCS: 36415; 82627 ==

== ENCOUNTER 2024-08-20 12:04 | Outpatient (OUT) | payer BC, SELFPAY ==
--- OUTSIDE RECORDS SUMMARY | 2024-08-20 12:22 | XMS_ITS | CCD ---
Author Organization [facility] CliniSymi Care Team Providers Care Self Propelled Dredge Operator Name Role Phone Kalina Dimasew Unavailable MISHEL DIMAS Primary Care Unavailable Ahmet Moreno Admitting Unavailable Ahmet Moreno Attending Unavailable Ahmet Moreno Attending Unavailable JUDIE, MISHEL A Primary Care Unavailable Ahmet Moreno Admitting Unavailable DO Mishel Dimas Primary Care Provider DO Mishel Dimas Attending Provider Mishel Dimas DO Primary Care Provider GIANNA FITZGERALD Referring Unavailable BRANIECKI, MISHEL A Primary Care Unavailable ANNICKBari, MISHEL A Referring Unavailable JUDIE, MISHEL A Primary Care Unavailable DEIRDRE WHARTON Admitting Unavailable DEIRDRE WHARTON Attending Unavailable BRANCAMMY, MISHEL A Primary Care Unavailable SILVER RICHARDS Consulting Unavailable STEFANO MORALES Consulting Unavailable JEWEL CERVANTES Consulting Unavailable GIANNA FITZGERALD Referring Unavailable BRANIECKI, MISHEL A Primary Care Unavailable LENA GE Referring Unavailabl e BRANIECKI, MISHEL A Primary Care Unavailable SOUTH, HUY Referring Unavailable BRANIECKI, MISHEL A Primary Care Unavailable SOUTH HUY Referring Unavailable BRANIECKI, MISHEL A Primary Care Unavailable JAY JAY ARTHUR Referring Unavailable BRANIECKI, MISHEL A Primary Care Unavailable LENA GE Referring Unavailabl e BRANIECKI, MISHEL A Primary Care Unavailable SOUTH, HUY Referring Unavailable BRANIECKI, MISHEL A Primary Care Unavailable GIANNA FITZGERALD Referring Unavailable BRANIECKI, MISHEL A Primary Care Unavailable CARLO WRIGHT Attending Unavailable ADRIANA, CARLO Referring Unavailable JUDIE, MISHEL Stark Primary Care Unavailable JUDIE, MISHEL A Primary Care Unavailable JUDIE, MISHEL A Referring Unavailable JUDIE, MISHEL A Primary Care Unavailable DO Mishel Dimas Primary Care Provider MD Shivani Ghosh Attending Provider [phone] Brysongiuliabari, Mishel Admitting Unavailable Cindabari, Mishel Primary Care Unavailable Judie, Mishel Attending Unavailable Shivani Ghosh Admitting Unavailable Shivani Ghosh Attending Unavailable Judie, Mishel Primary Care Unavailable LUBA ELIZABETH Attending Unavailable LUBA ELIZABETH Attending Unavailable MARCK STRAUSS Attending Unavailable NENITA ADAIR Attending Unavailable NENITA ADAIR Attending Unavailable JENNIFER HERRERA Attending Unavailable LUBA ELIZABETH Attending Unavailable Noemi Yoo MD Primary Care Provider [phone] Jennifer Mcneil Unavailable Allergies Allergy Classification Reported Allergen(s) Allergy Type Date of Onset Reaction(s) Facility (1 source) No Known Medication Allergies; Translations: [No Known Medication Allergies] Propensity to adverse reactions to drug (disorder) [facility] Repository Medications Current Medications Medication Drug Class(es) Dates Sig (Normalized) Sig (Original) acetaminophen 500 mg oral tablet (11 sources) Start: 11-13-2023 take 2 tablets by mouth every eight hours acetaminophen (TYLENOL EXTRA STRENGTH) 500 mg tablet Take 2 tablets (1,000 mg total) by mouth every 8 (eight) hours. 30 tablet 0 11/13/2023 Active 24 hr buPROPion hydrochloride 300 mg extended release oral tablet (6 sources) Aminoketone take 1 tablet by mouth every twenty-four hours buPROPion HCl ER (XL) 300 MG 1 tablet in the morning Orally Once a day for 90 day(s) Active docusate sodium 100 mg oral capsule (11 sources) Start: 11-13-2023 take 1 capsule by mouth in the morning, then take 1 capsule by mouth at bedtime docusate sodium (COLACE) 100 mg capsule Take 1 capsule (100 mg total) by mouth in the morning and 1 capsule (100 mg total) before bedtime. 60 capsule 0 11/13/2023 Active etonogestrel 68 mg drug implant (7 sources) Progestin etonogestrel-elu tin g 68 mg contraceptive implant 1 each by Implant route 1 (one) time Active Nexplanon Active Etonogestrel (Nexplanon) 68 mg implant (2 sources) Start: 04-09-2024 Etonogestrel (Nexplanon) 68 mg implant Active SUBDERMAL April 09, 2024 12:00am famotidine 20 mg oral tablet (3 sources) Histamine-2 Receptor Antagonist Famotidine 20 MG take 1 tablet by mouth once daily for 14 days Oral for 14 Days Active ferrous sulfate 325 mg oral tablet (1 source) Start: 04-16-2024 take 1 tablet by mouth every other day FeroSul 325 (65 Fe) MG tablet Take 1 tablet by mouth every other day 04/16/2024 Active ibuprofen 800 mg oral tablet (15 sources) Nonsteroidal Anti-inflammatory Drug Start: 11-13-2023 take 1 tablet by mouth every eight hours ibuprofen (MOTRIN) 800 mg tablet Take 1 tablet (800 mg total) by mouth every 8 (eight) hours. 30 tablet 0 11/13/2023 Active Start: 03-28-2020 End: 11-02-2021 Ibuprofen Discontinued 600 M G PO Every 6 hours March 28, 2020 12:00am November 02, 2021 7:03pm do not exceed 4 doses in a 24 hour period levonorgestrel 0.430985 mg/hr intrauterine system (1 source) Progestin, Progestin-containing Intrauterine Device Start: 06-22-2024 End: 06-21-2029 Levonorgestrel intrauterine device 52 mg oxyCODONE hydrochloride 5 mg oral tablet (3 sources) Opioid Agonist Start: 11-13-2023 End: 11-18-2023 take 1 tablet by mouth every six hours as needed for pain oxyCODONE (ROXICODONE) 5 mg immediate release tablet Indications: Acute post-operative pain Take 1 tablet (5 mg total) by mouth every 6 (six) hours as needed for pain for up to 5 days. Max Daily Amount: 20 mg 20 tablet 0 11/13/2023 11/18/2023 Active [id number]-ysw ic-omega3 29-1-400 mg combo pack,tablet & capDR (11 sources) oybpjjux14-kczr- fo lic-omega3 29-1-400 mg combo pack,tablet & cap,DR Take 1 tablet by mouth. 0 Active Completed/Discontinued Medications Medication Drug Class(es) Dates Sig (Normalized) Sig (Original) cephalexin 500 mg oral capsule (4 sources) Cephalosporin Antibacterial Start: 11-02-2021 End: 04-09-2024 take 500 mg by mouth three times daily Cephalexin Discontinued 500 MG PO Three times daily 30 November 02, 2021 1:00am April 09, 2024 7:11am NIFEdipine 30 mg osmotic 24 hr extended release oral tablet (4 sources) Dihydropyridine Calcium Channel Finn Start: 03-25-2020 End: 03-28-2020 take 1 tablet by mouth once daily Nifedipine (Procardia Xl) 30 mg Tablet Extended Release 24hr Discontinued 30 MG PO Daily March 25, 2020 12:00am March 28, 2020 1:56pm ondansetron 4 mg disintegrating oral tablet (4 sources) Serotonin-3 Receptor Antagonist Start: 11-02-2021 End: 04-09-2024 take 4 mg by mouth three times daily Ondansetron Discontinued 4 MG PO Three times daily 9 November 02, 2021 1:00am April 09, 2024 7:11am Vit 30-Miof-Szjiq-Dha ( + Dha) 28 mg iron- 975 mcg-200 mg Combo Pack (4 sources) Start: 02-13-2020 End: 11-02-2021 take 1 tablet by mouth once daily Vit 61-Jiux-Ftdzo-Dha ( + Dha) 28 mg iron- 975 mcg-200 mg Combo Pack Discontinued 1 TAB PO Daily February 13, 2020 12:00am November 02, 2021 7:03pm Problems Active Problems Problem Classification Problem Date Documented Date Episodic/Chronic Abdominal pain (2 sources) Right lower quadrant pain; Translations: [Right upper quadrant pain] Episodic Contraceptive and procreative management (2 sources) Subcutaneous contraceptive implant present; Translations: [Encounter for surveillance of implantable subdermal contraceptive] 07-08-2024 Episodic Deficiency and other anemia (1 source) Iron deficiency anemia due to blood loss; Translations: [Iron deficiency anemia secondary to blood loss (chronic)] Onset: 06-24-2024 06-24-2024 Chronic Digestive congenital anomalies (11 sources) Tongue tie; Translations: [Ankyloglossia] Onset: 06-30-2017 06-30-2017 Chronic Menstrual disorders (20 sources) Menorrhagia; Translations: [Excessive and frequent menstruation with regular cycle] Onset: 07-31-2021 Resolved: 06-24-2024 Chronic Mood disorders (11 sources) Moderate major depression, single episode; Translations: [Major depressive disorder, single episode, moderate] Onset: 07-31-2021 Resolved: 07-31-2021 Chronic Other aftercare (1 source) Surgical follow-up; Translations: [Encounter for follow-up examination after completed treatment for conditions other than malignant neoplasm] 11-20-2023 Episodic Other complications of (4 sources) Obstetric investigative finding; Translations: [Supervision of other high risk pregnancies, unspecified trimester] 02-15-2020 Episodic Other endocrine disorders (1 source) Polycystic ovary syndrome; Translations: [Polycystic ovarian syndrome] Onset: 06-24-2024 06-24-2024 Chronic Other nutritional; endocrine; and metabolic disorders (1 source) Abnormal weight gain Episodic Other and delivery including normal (13 sources) Intrauterine ; Translations: [Encounter for supervision of normal , unspecified, unspecified trimester] Onset: 02-24-2020 Resolved: 11-19-2023 02-24-2020 Episodic Other upper respiratory disease (12 sources) Allergic rhinitis; Translations: [Allergic rhinitis, unspecified] Onset: 06-23-2017 06-23-2017 Chronic Other upper respiratory infections (7 sources) Chronic sinusitis; Translations: [Chronic sinusitis, unspecified] Chronic Residual codes; unclassified (2 sources) Gestation period, 29 weeks; Translations: [29 weeks gestation of ] 02-15-2020 Episodic Syncope (4 sources) Near syncope; Translations: [Syncope and collapse] 11-02-2021 Episodic Past or Other Problems Problem Classification Problem Date Documented Date Episodic/Chronic Acute and chronic tonsillitis (12 sources) Hypertrophy of adenoids; Translations: [Hypertrophy of adenoids] Onset: 06-23-2017 Resolved: 06-24-2024 06-23-2017 Chronic Cardiac dysrhythmias (1 source) Palpitations; Translations: [Palpitations] Onset: 08-28-2023 Episodic Hemorrhage during ; abruptio placenta; placenta previa (8 sources) Third trimester bleeding; Translations: [Antepartum hemorrhage, unspecified, third trimester] Onset: 08-28-2023 Resolved: 06-24-2024 02-15-2020 Episodic Mood disorders (8 sources) Mood disorders Onset: 11-19-2023 Resolved: 12-14-2023 11-19-2023 Other complications of ; puerperium affecting management of mother (1 source) Maternal care for (suspected) abnormality and damage, unspecified, not applicable or unspecified; Translations: [Maternal care for (suspected) abnormality and damage, unspecified, not applicable or unspecified] Onset: 08-28-2023 Episodic Other complications of (5 sources) Complication occurring during ; Translations: [Other specified related conditions, unspecified trimester] Onset: 06-24-2024 Resolved: 06-24-2024 02-15-2020 Episodic Other complications of (1 source) Supervision of other high risk pregnancies, unspecified trimester; Translations: [Supervision of other high risk pregnancies, unspecified trimester] Onset: 08-28-2023 Episodic Other nervous system disorders (1 source) Other acute postprocedural pain; Translations: [Other acute postprocedural pain] Onset: 08-28-2023 Episodic Other nutritional; endocrine; and metabolic disorders (1 source) Abnormal weight gain; Translations: [Abnormal weight gain] Onset: 03-26-2023 Episodic Other screening for suspected conditions (not mental disorders or infectious disease) (5 sources) Encounter for screening for other metabolic disorders; Translations: [Encounter for screening for cardiovascular disorders] Onset: 08-28-2023 Episodic Other upper respiratory disease (11 sources) Nasal congestion; Translations: [Nasal congestion] Onset: 06-23-2017 06-23-2017 Episodic Other upper respiratory disease (12 sources) Deviated nasal septum; Translations: [Deviated nasal septum] Onset: 09-15-2018 09-15-2018 Episodic Other upper respiratory infections (13 sources) Acute sinusitis; Translations: [Other acute sinusitis] Onset: 10-27-2017 Resolved: 06-24-2024 10-27-2017 Episodic Residual codes; unclassified (12 sources) History of adenoidectomy; Translations: [Acquired absence of other organs] Onset: 08-04-2017 08-04-2017 Episodic Umbilical cord complication (14 sources) Vasa previa; Translations: [Labor and delivery complicated by vasa previa, not applicable or unspecified] Onset: 08-28-2023 Resolved: 11-19-2023 08-28-2023 Episodic Urinary tract infections (5 sources) Urinary tract infectious disease; Translations: [Urinary tract infection, site not specified] Onset: 06-24-2024 Resolved: 06-24-2024 11-02-2021 Episodic Results Test Name Value Interpretation Reference Range Facility Insertion/Removal of Contrac eptive Capsuleon 07-08-2024 Margie Santacruz LPN 07/08/2024 2:44 PM Insertion/Removal of Contraceptive Capsule Date/Time: 07/08/2024 1:46 PM Performed by: SID Hernandez Authorized by: SID Hernnadez Consent: Consent obtained: Verbal Consent given by: Patient Procedural risks discussed: Bleeding and infection Patient questions answered: yes Patient agrees, verbalizes understanding, and wants to proceed: yes Educational handouts given: yes Instructions and paperwork completed: yes Pre-procedure: Pre-procedure timeout performed: yes Prepped with: povidone-iodine Local anesthetic: Lidocaine without epinephrine The site was cleaned and prepped in a sterile fashion: yes Procedure: Procedure: Removal Left/right: Right [facility] No Panel InformationOrdered By: Livier Howe on 04-14-2024 Quick Strep (POC) [facility] CBC AND AUTO DIFFon 11-12-19 24 ABSOLUTE BASOPHIL 0.0 X10E9/L Normal 0.0-0.2 [facility] Comment on above: Performed By: #### 2 0438-8 #### [facility] ([id number]) [address] [place] [address] ABSOLUTE NEUTROPHIL 7.1 X10E9/L High 1.5-6.6 [facility] Comment on above: Performed By: #### 2 0438-8 #### [facility] ([id number]) [address] [place] [address] Basophils/100 WBC (Bld) 0.1 % Normal P [facility] Comment on above: Performed By: #### 2 0438-8 #### [facility] ([id number]) [address], [address] [place] [address] Eosinophils (Bld) [#/Vol] 0.1 10*3/uL Normal 0.0-0.4 [facility] Comment on above: Performed By: #### 2 0438-8 #### [facility] ([id number]) [address], [address] [place] [address] Eosinophils/100 WBC (Bld) 0.6 % Normal [facility] Comment on above: Performed By: #### 2 0438-8 #### [facility] ([id number]) [address] [address] [place] [address] Erythrocyte distribution width (RBC) [Ratio] 15.5 % High 11.5-15.0 [facility] Comment on above: Performed By: #### 2 0438-8 #### [facility] ([id number]) [address], [address] [place] [address] Hematocrit (Bld) [Volume fraction] 31.2 % Low 35-47 [facility] Comment on above: Performed By: #### 2 0438-8 #### [facility] ([id number]) [address] [address] [place] [address] Hemoglobin (Bld) [Mass/Vol] 10.9 g/dL Low 11.7-15.5 [facility] Comment on above: Performed By: #### 2 0438-8 #### [facility] ([id number]) [address] [place] [address] Lymphocytes (Bld) [#/Vol] 1.7 10*3/uL Normal 1.0-3.5 [facility] Comment on above: Performed By: #### 2 0438-8 #### [facility] ([id number]) [address] [place] [address] Lymphocytes/100 WBC (Bld) 18.3 % Normal [facility] Comment on above: Performed By: #### 2 0438-8 #### [facility] ([id number]) [address] [place] [address] MCH (RBC) [Entitic mass] 31.0 pg Normal 27-34 [facility] Comment on above: Performed By: #### 2 0438-8 #### [facility] ([id number]) [address] [place] [address] MCHC (RBC) [Mass/Vol] 35.0 g/dL Normal 32-36 [facility] Comment on above: Performed By: #### 2 0438-8 #### [facility] ([id number]) [address] [place] [address] MCV (RBC) [Entitic vol] 89 fL Normal 80-100 P [facility] Comment on above: Performed By: #### 2 0438-8 #### [facility] ([id number]) [address], [address] [place] [address] Monocytes (Bld) [#/Vol] 0.6 10*3/uL Normal 0-0.9 [facility] Comment on above: Performed By: #### 2 0438-8 #### [facility] ([id number]) [address] [place] [address] Monocytes/100 WBC (Bld) 6.8 % Normal P [facility] Comment on above: Performed By: #### 2 0438-8 #### [facility] ([id number]) [address] [place] [address] Neutrophils/100 WBC (Bld) 74.2 % Normal [facility] Comment on above: Performed By: #### 2 0438-8 #### [facility] ([id number]) [address] [place] [address] Platelet mean volume (Bld) [Entitic vol] 8.9 fL Normal 7-12 [facility] Comment on above: Performed By: #### 2 0438-8 #### [facility] ([id number]) [address] [place] [address] Platelets (Bld) [#/Vol] 138 10*3/uL Low 150-450 [facility] Comment on above: Performed By: #### 2 0438-8 #### [facility] ([id number]) [address] [place] [address] RBC COUNT 3.52 X10E12/L Low 3.80-5.20 [facility] Comment on above: Performed By: #### 2 0438-8 #### [facility] ([id number]) [address] [place] [address] WBC (Bld) [#/Vol] 9.5 10*3/uL Normal 4.0-11.0 [facility] Comment on above: Performed By: #### 2 0438-8 #### [facility] ([id number]) [address] [place] [address] CBC AND AUTO DIFFon 11-11-19 24 ABSOLUTE BASOPHIL 0.0 X10E9/L Normal 0.0-0.2 [facility] Comment on above: Performed By: #### 2 0438-8 #### [facility] ([id number]) [address] [place] [address] ABSOLUTE NEUTROPHIL 3.6 X10E9/L Normal 1.5-6.6 [facility] Comment on above: Performed By: #### 2 0438-8 #### [facility] ([id number]) [address] [place] [address] Basophils/100 WBC (Bld) 0.4 % Normal [facility] Comment on above: Performed By: #### 2 0438-8 #### [facility] ([id number]) [address] [place] [address] Eosinophils (Bld) [#/Vol] 0.1 10*3/uL Normal 0.0-0.4 [facility] Comment on above: Performed By: #### 2 0438-8 #### [facility] ([id number]) [address] [place] [address] Eosinophils/100 WBC (Bld) 1.5 % Normal [facility] Comment on above: Performed By: #### 2 0438-8 #### [facility] ([id number]) [address] [place] [address] Erythrocyte distribution width (RBC) [Ratio] 15.9 % High 11.5-15.0 [facility] Comment on above: Performed By: #### 2 0438-8 #### [facility] ([id number]) [address] [place] [address] Hematocrit (Bld) [Volume fraction] 33.8 % Low 35-47 [facility] Comment on above: Performed By: #### 2 0438-8 #### [facility] ([id number]) [address] [place] [address] Hemoglobin (Bld) [Mass/Vol] 11.6 g/dL Low 11.7-15.5 [facility] Comment on above: Performed By: #### 2 0438-8 #### [facility] ([id number]) [address] [place] [address] Lymphocytes (Bld) [#/Vol] 1.7 10*3/uL Normal 1.0-3.5 [facility] Comment on above: Performed By: #### 2 0438-8 #### [facility] ([id number]) [address] [place] [address] Lymphocytes/100 WBC (Bld) 29.4 % Normal [facility] Comment on above: Performed By: #### 2 0438-8 #### [facility] ([id number]) [address] [place] [address] MCH (RBC) [Entitic mass] 30.7 pg Normal 27-34 [facility] Comment on above: Performed By: #### 2 0438-8 #### [facility] ([id number]) [address] [place] [address] MCHC (RBC) [Mass/Vol] 34.2 g/dL Normal 32-36 [facility] Comment on above: Performed By: #### 2 0438-8 #### [facility] ([id number]) [address] [place] [address] MCV (RBC) [Entitic vol] 90 fL Normal 80-100 P [facility] Comment on above: Performed By: #### 2 0438-8 #### [facility] ([id number]) [address] [place] [address] Monocytes (Bld) [#/Vol] 0.4 10*3/uL Normal 0-0.9 [facility] Comment on above: Performed By: #### 2 0438-8 #### [facility] ([id number]) [address] [place] [address] Monocytes/100 WBC (Bld) 6.1 % Normal P [facility] Comment on above: Performed By: #### 2 0438-8 #### [facility] ([id number]) [address] [place] [address] Neutrophils/100 WBC (Bld) 62.6 % Normal [facility] Comment on above: Performed By: #### 2 0438-8 #### [facility] ([id number]) [address] [place] [address] Platelet mean volume (Bld) [Entitic vol] 8.9 fL Normal 7-12 [facility] Comment on above: Performed By: #### 2 0438-8 #### [facility] ([id number]) [address] [place] [address] Platelets (Bld) [#/Vol] 132 10*3/uL Low 150-450 [facility] Comment on above: Performed By: #### 2 0438-8 #### [facility] ([id number]) [address] [place] [address] RBC COUNT 3.78 X10E12/L Low 3.80-5.20 [facility] Comment on above: Performed By: #### 2 0438-8 #### [facility] ([id number]) [address] [place] [address] WBC (Bld) [#/Vol] 5.8 10*3/uL Normal 4.0-11.0 [facility] Comment on above: Performed By: #### 2 0438-8 #### [facility] ([id number]) [address] [place] [address] Surgical Pathologyon 024 Surgical Pathology Normal [facility] Comment on above: Result Comment: [facility] [address] [place] [address] Surgical Pathology Consultation Patient Name:JOSELIN VALENZUELA:2005 (Age: 18)Gender:FTaken:4Reported:4Physician(s):Gustavo Hook M.D.Copy To:Deirdre Wharton MDAccession #:[id number]. Rec. #:[id number]: #[id number] Final Pathologic Diagnosis Placenta: 378-gram third trimester placenta with three-vessel umbilical cord. Report Electronically Signed [facility]/11/25/2023durga Lazo MD Interpretation performed at [facility], [address] [place] [address], License number: [id number]. Clinical History Vasa previa, IUP vasa previa. Gross Description Received in formalin labeled VALENZUELA, placenta : Single MEMBRANES: Placenta Sac Rupture (cm from margin): Indeterminate, 20% disrupted Color: Blue-aviles Other Characteristics: Unremarkable Insertion Site: 50% marginal, 50% circummarginate CORD: Appearance: Unremarkable Site of Insertion: Eccentric Length & Diameter (cm): 11 x 0.7 cm True Knots: No Number of vessels: 3 GENERAL: Trimmed Weight (grams): 378 g Complete: Yes Size 1 x Size 2 x Size 3 (cm): 16 x 14 x 1.8 cm Accessory Lobe(s): No PLACENTAL DISK: Color of Surface: Blue-aviles Sub-amniotic Cyst: No Amnion Nodosum: No Subchorionic Fibrin: No Appearance of Cut Surface: Uniform and unremarkable Maternal floor: Intact and unremarkable Retroplacental hematoma: No Cassettes: A Rolled membrane, two sections of cord B-D Plastic Injection Mold Maker sections of placenta (4,ss,K23-3021) . /11/19/2023GP Specimen(s) Received Placenta Fee Codes(s): 1; 15879 STREP B SCREEN CULTUREon S. agalactiae Org specific cx Ql (Vag+Rectum) CULTURE RESULTS NEGATIVE FOR GROUP B STREPTOCOCCUS BY NUCLEIC ACID AMPLIFICATION Normal [facility] Comment on above: Performed By: #### 2 0438-8 #### [facility] ([id number]) [address] [place] [address], [address] [place] [address] CBC AND AUTO DIFFon 11-06-19 24 ABSOLUTE BASOPHIL 0.0 X10E9/L Normal 0.0-0.2 [facility] Comment on above: Performed By: #### 2 0438-8 #### [facility] ([id number]) [address], [address] [place] [address] ABSOLUTE NEUTROPHIL 3.6 X10E9/L Normal 1.5-6.6 [facility] Comment on above: Performed By: #### 2 0438-8 #### [facility] ([id number]) [address], [address] [place] [address] Basophils/100 WBC (Bld) 0.1 % Normal [facility] Comment on above: Performed By: #### 2 0438-8 #### [facility] ([id number]) [address], [address] [place] [address] Eosinophils (Bld) [#/Vol] 0.1 10*3/uL Normal 0.0-0.4 [facility] Comment on above: Performed By: #### 2 0438-8 #### [facility] ([id number]) [address], [address] [place] [address] Eosinophils/100 WBC (Bld) 1.0 % Normal [facility] Comment on above: Performed By: #### 2 0438-8 #### [facility] ([id number]) [address], [address] [place] [address] Erythrocyte distribution width (RBC) [Ratio] 15.7 % High 11.5-15.0 [facility] Comment on above: Performed By: #### 2 0438-8 #### [facility] ([id number]) [address], [address] [place] [address] Hematocrit (Bld) [Volume fraction] 34.0 % Low 35-47 [facility] Comment on above: Performed By: #### 2 0438-8 #### [facility] ([id number]) [address], [address] [place] [address] Hemoglobin (Bld) [Mass/Vol] 11.6 g/dL Low 11.7-15.5 [facility] Comment on above: Performed By: #### 2 0438-8 #### [facility] ([id number]) [address], [address] [place] [address] Lymphocytes (Bld) [#/Vol] 1.8 10*3/uL Normal 1.0-3.5 [facility] Comment on above: Performed By: #### 2 0438-8 #### [facility] ([id number]) [address], [address] [place] [address] Lymphocytes/100 WBC (Bld) 30.8 % Normal [facility] Comment on above: Performed By: #### 2 0438-8 #### [facility] ([id number]) [address], [address] [place] [address] MCH (RBC) [Entitic mass] 30.5 pg Normal 27-34 [facility] Comment on above: Performed By: #### 2 0438-8 #### [facility] ([id number]) [address], [address] [place] [address] MCHC (RBC) [Mass/Vol] 34.0 g/dL Normal 32-36 [facility] Comment on above: Performed By: #### 2 0438-8 #### [facility] ([id number]) [address], [address] [place] [address] MCV (RBC) [Entitic vol] 90 fL Normal 80-100 [facility] Comment on above: Performed By: #### 2 0438-8 #### [facility] ([id number]) [address], [address] [place] [address] Monocytes (Bld) [#/Vol] 0.4 10*3/uL Normal 0-0.9 [facility] Comment on above: Performed By: #### 2 0438-8 #### [facility] ([id number]) [address], [address] [place] [address] Monocytes/100 WBC (Bld) 6.2 % Normal P [facility] Comment on above: Performed By: #### 2 0438-8 #### [facility] ([id number]) [address], [address] [place] [address] Neutrophils/100 WBC (Bld) 61.9 % Normal [facility] Comment on above: Performed By: #### 2 0438-8 #### [facility] ([id number]) [address], [address] [place] [address] Platelet mean volume (Bld) [Entitic vol] 8.6 fL Normal 7-12 [facility] Comment on above: Performed By: #### 2 0438-8 #### [facility] ([id number]) [address], [address] [place] [address] Platelets (Bld) [#/Vol] 140 10*3/uL Low 150-450 [facility] Comment on above: Performed By: #### 2 0438-8 #### [facility] ([id number]) [address], [address] [place] [address] RBC COUNT 3.79 X10E12/L Low 3.80-5.20 [facility] Comment on above: Performed By: #### 2 0438-8 #### [facility] ([id number]) [address], [address] [place] [address] WBC (Bld) [#/Vol] 5.8 10*3/uL Normal 4.0-11.0 [facility] Comment on above: Performed By: #### 2 0438-8 #### [facility] ([id number]) [address], [address] [place] [address] COMPREHENSIVE METABOLIC PANE Alex 11-06-2023 Albumin [Mass/Vol] 3.2 g/dL Normal 3.2-5.3 [facility] Comment on above: Performed By: #### 2 0438-8 #### [facility] ([id number]) [address], [address] [place] [address] ALP [Catalytic activity/Vol] 93 U/L Normal 39-130 [facility] Comment on above: Performed By: #### 2 0438-8 #### [facility] ([id number]) [address], [address] [place] [address] ALT [Catalytic activity/Vol] 10 U/L Normal 0-31 [facility] Comment on above: Performed By: #### 2 0438-8 #### [facility] ([id number]) [address], [address] [place] [address] Anion gap [Moles/Vol] 10 mmol/L Normal 5-15 [facility] Comment on above: Performed By: #### 2 0438-8 #### [facility] ([id number]) [address], [address] [place] [address] AST [Catalytic activity/Vol] 10 U/L Normal 0-41 [facility] Comment on above: Performed By: #### 2 0438-8 #### [facility] ([id number]) [address], [address] [place] [address] Bilirubin [Mass/Vol] 0.4 mg/dL Normal 0.3-1.2 [facility] Comment on above: Performed By: #### 2 0438-8 #### [facility] ([id number]) [address], [address] [place] [address] Calcium [Mass/Vol] 8.5 mg/dL Normal 8.5-10.5 [facility] Comment on above: Performed By: #### 2 0438-8 #### [facility] ([id number]) [address], [address] [place] [address] Chloride [Moles/Vol] 107 mmol/L Normal 98-109 [facility] Comment on above: Performed By: #### 2 0438-8 #### [facility] ([id number]) [address], [address] [place] [address] CO2 [Moles/Vol] 23 mmol/L Normal 22-32 [facility] Comment on above: Performed By: #### 2 0438-8 #### [facility] ([id number]) [address], [address] [place] [address] Creatinine [Mass/Vol] 0.50 mg/dL Normal 0.40-1.00 [facility] Comment on above: Result Comment: METH OD TRACEABLE TO IDMS STANDARD Performed By: #### 2 0438-8 #### [facility] ([id number]) [address], [address] [place] [address] eGFR (CKD-EPI) NON-RACE DEPENDENT >90 Normal >59 [facility] Comment on above: Result Comment: Reported eGFR is based on the CKD-EPI 2020 equation that does not use a race coefficient. Performed By: #### 2 0438-8 #### [facility] ([id number]) [address], [address] [place] [address] Glucose [Mass/Vol] 79 mg/dL Normal 65-99 [facility] Comment on above: Performed By: #### 2 0438-8 #### [facility] ([id number]) [address], [address] [place] [address] Potassium [Moles/Vol] 3.9 mmol/L Normal 3.5-5.0 [facility] Comment on above: Performed By: #### 2 0438-8 #### [facility] ([id number]) [address], [address] [place] [address] Protein [Mass/Vol] 5.4 g/dL Low 6.0-8.0 [facility] Comment on above: Performed By: #### 2 0438-8 #### [facility] ([id number]) [address], [address] [place] [address] Sodium [Moles/Vol] 140 mmol/L Normal 134-146 [facility] Comment on above: Performed By: #### 2 0438-8 #### [facility] ([id number]) [address], [address] [place] [address] Urea nitrogen [Mass/Vol] 4 mg/dL Low 5-23 [facility] Comment on above: Performed By: #### 2 0438-8 #### [facility] ([id number]) [address], [address] [place] [address] URINALYSISon 10-18-2023 Bilirubin Ql (U) Negative Normal NEG [facility] Comment on above: Performed By: #### 2 0438-8 #### [facility] ([id number]) [address], [address] [place] [address] BLOOD/HGB Trace Abnormal NEG [facility] Comment on above: Performed By: #### 2 0438-8 #### [facility] ([id number]) [address], [address] [place] [address] Color (U) YELLOW Normal YELLOW [facility] Comment on above: Performed By: #### 2 0438-8 #### [facility] ([id number]) [address], [address] [place] [address] Glucose Ql (U) Negative Normal NEG [facility] Comment on above: Performed By: #### 2 0438-8 #### [facility] ([id number]) [address], [address] [place] [address] Ketones Ql (U) 100 mg/dL Abnormal NEG [facility] Comment on above: Performed By: #### 2 0438-8 #### [facility] ([id number]) [address], [address] [place] [address] Leukocyte esterase Test strip Ql (U) Negative Normal NEG [facility] Comment on above: Performed By: #### 2 0438-8 #### [facility] ([id number]) [address], [address] [place] [address] MUCOUS PRESENT Abnormal NONE [facility] Comment on above: Performed By: #### 2 0438-8 #### [facility] ([id number]) [address], [address] [place] [address] Nitrite Ql (U) Negative Normal NEG [facility] Comment on above: Performed By: #### 2 0438-8 #### [facility] ([id number]) [address], [address] [place] [address] pH (U) 5.0 [pH] Normal 5.0-8.5 [facility] Comment on above: Performed By: #### 2 0438-8 #### [facility] ([id number]) [address], [address] [place] [address] Protein Ql (U) Negative Normal NEG [facility] Comment on above: Performed By: #### 2 0438-8 #### [facility] ([id number]) [address], [address] [place] [address] R.B.CELLS 2 /hpf Normal 0-5 [facility] Comment on above: Performed By: #### 2 0438-8 #### [facility] ([id number]) [address], [address] [place] [address] Specific gravity (U) [Rel density] 1.017 Normal 1.003-1.035 [facility] Comment on above: Performed By: #### 2 0438-8 #### [facility] ([id number]) [address], [address] [place] [address] SQUAMOUS EPITHELIUM 1 /hpf Normal 0-5 [facility] Comment on above: Performed By: #### 2 0438-8 #### [facility] ([id number]) [address], [address] [place] [address] TURBIDITY CLEAR Normal CLEAR [facility] Comment on above: Performed By: #### 2 0438-8 #### [facility] ([id number]) [address], [address] [place] [address] Urinalysis dipstick W Reflex Microscopic panel (U) URINE RECEIVED WITHOUT PRESERVATIVE-DELAYS IN TRANSPORT MAY AFFECT RESULTS.INTERPRET WITH CAUTION AND CLINICAL CORRELATION IS RECOMMENDED. Normal [facility] Comment on above: Performed By: #### 2 0438-8 #### [facility] ([id number]) [address], [address] [place] [address] Urobilinogen (U) [Mass/Vol] mg/dL Normal <1.1 [facility] Comment on above: Performed By: #### 2 0438-8 #### [facility] ([id number]) [address], [address] [place] [address] W.B.CELLS <1 Normal 0-5 [facility] Comment on above: Performed By: #### 2 0438-8 #### [facility] ([id number]) [address], [address] [place] [address] CBC AND AUTO DIFFon 1620 24 ABSOLUTE BASOPHIL 0.0 X10E9/L Normal 0.0-0.2 [facility] Comment on above: Performed By: #### C BCA, CMP #### [facility] ([id number]) [address], [address] [place] [address] ABSOLUTE NEUTROPHIL 4.5 X10E9/L Normal 1.5-6.6 [facility] Comment on above: Performed By: #### C BCA, CMP #### [facility] ([id number]) [address], [address] [place] [address] Basophils/100 WBC (Bld) 0.2 % Normal [facility] Comment on above: Performed By: #### C BCA, CMP #### [facility] ([id number]) [address], [address] [place] [address] Eosinophils (Bld) [#/Vol] 0.1 10*3/uL Normal 0.0-0.4 [facility] Comment on above: Performed By: #### C MED, CMP #### [facility] ([id number]) [address], [address] [place] [address] Eosinophils/100 WBC (Bld) 2.0 % Normal [facility] Comment on above: Performed By: #### C MED, CMP #### [facility] ([id number]) [address], [address] [place] [address] Erythrocyte distribution width (RBC) [Ratio] 16.7 % High 11.5-15.0 [facility] Comment on above: Performed By: #### C MED, CMP #### [facility] ([id number]) [address], [address] [place] [address] Hematocrit (Bld) [Volume fraction] 35.4 % Normal 35-47 [facility] Comment on above: Performed By: #### C MED, CMP #### [facility] ([id number]) [address], [address] [place] [address] Hemoglobin (Bld) [Mass/Vol] 12.0 g/dL Normal 11.7-15.5 [facility] Comment on above: Performed By: #### C BCA, CMP #### [facility] ([id number]) [address], [address] [place] [address] Lymphocytes (Bld) [#/Vol] 1.5 10*3/uL Normal 1.0-3.5 [facility] Comment on above: Performed By: #### C BCA, CMP #### [facility] ([id number]) [address], [address] [place] [address] Lymphocytes/100 WBC (Bld) 23.7 % Normal [facility] Comment on above: Performed By: #### C BCA, CMP #### [facility] ([id number]) [address], [address] [place] [address] MCH (RBC) [Entitic mass] 30.7 pg Normal 27-34 [facility] Comment on above: Performed By: #### C BCA, CMP #### [facility] ([id number]) [address], [address] [place] [address] MCHC (RBC) [Mass/Vol] 34.1 g/dL Normal 32-36 [facility] Comment on above: Performed By: #### C BCA, CMP #### [facility] ([id number]) [address], [address] [place] [address] MCV (RBC) [Entitic vol] 90 fL Normal 80-100 P [facility] Comment on above: Performed By: #### C BCA, CMP #### [facility] ([id number]) [address], [address] [place] [address] Monocytes (Bld) [#/Vol] 0.3 10*3/uL Normal 0-0.9 [facility] Comment on above: Performed By: #### C BCA, CMP #### [facility] ([id number]) [address], [address] [place] [address] Monocytes/100 WBC (Bld) 5.2 % Normal P [facility] Comment on above: Performed By: #### C BCA, CMP #### [facility] ([id number]) [address], [address] [place] [address] Neutrophils/100 WBC (Bld) 68.9 % Normal [facility] Comment on above: Performed By: #### C BCA, CMP #### [facility] ([id number]) [address], [address] [place] [address] Platelet mean volume (Bld) [Entitic vol] 8.7 fL Normal 7-12 [facility] Comment on above: Performed By: #### C BCA, CMP #### [facility] ([id number]) [address], [address] [place] [address] Platelets (Bld) [#/Vol] 158 10*3/uL Normal 150-450 [facility] Comment on above: Performed By: #### C BCA, CMP #### [facility] ([id number]) [address], [address] [place] [address] RBC COUNT 3.93 X10E12/L Normal 3.80-5.20 [facility] Comment on above: Performed By: #### C BCA, CMP #### [facility] ([id number]) [address] [place] [address] WBC (Bld) [#/Vol] 6.5 10*3/uL Normal 4.0-11.0 [facility] Comment on above: Performed By: #### C BCA, CMP #### [facility] ([id number]) [address] [place] [address] COMPREHENSIVE METABOLIC PANE Alex 10-14-2023 Albumin [Mass/Vol] 3.4 g/dL Normal 3.2-5.3 [facility] Comment on above: Performed By: #### C BCA, CMP #### [facility] ([id number]) [address], [address] [place] [address] ALP [Catalytic activity/Vol] 75 U/L Normal 39-130 [facility] Comment on above: Performed By: #### C BCA, CMP #### [facility] ([id number]) [address] [place] [address] ALT [Catalytic activity/Vol] 13 U/L Normal 0-31 [facility] Comment on above: Performed By: #### C BCA, CMP #### [facility] ([id number]) [address] [place] [address] Anion gap [Moles/Vol] 10 mmol/L Normal 5-15 [facility] Comment on above: Performed By: #### C BCA, CMP #### [facility] ([id number]) [address] [place] [address] AST [Catalytic activity/Vol] 18 U/L Normal 0-41 [facility] Comment on above: Performed By: #### C BCA, CMP #### [facility] ([id number]) [address] [place] [address] Bilirubin [Mass/Vol] 0.4 mg/dL Normal 0.3-1.2 [facility] Comment on above: Performed By: #### C BCA, CMP #### [facility] ([id number]) [address] [place] [address] Calcium [Mass/Vol] 9.0 mg/dL Normal 8.5-10.5 [facility] Comment on above: Performed By: #### C BCA, CMP #### [facility] ([id number]) [address] [place] [address] Chloride [Moles/Vol] 103 mmol/L Normal 98-109 [facility] Comment on above: Performed By: #### C BCA, CMP #### [facility] ([id number]) [address] [place] [address] CO2 [Moles/Vol] 22 mmol/L Normal 22-32 [facility] Comment on above: Performed By: #### C BCA, CMP #### [facility] ([id number]) [address] [address] [place] [address] Creatinine [Mass/Vol] 0.51 mg/dL Normal 0.40-1.00 [facility] Comment on above: Result Comment: METH OD TRACEABLE TO IDMS STANDARD Performed By: #### C BCA, CMP #### [facility] ([id number]) [address] [address] [place] [address] eGFR (CKD-EPI) NON-RACE DEPENDENT >90 Normal >59 [facility] Comment on above: Result Comment: Reported eGFR is based on the CKD-EPI 2020 equation that does not use a race coefficient. Performed By: #### C BCA, CMP #### [facility] ([id number]) [address] [address] [place] [address] Glucose [Mass/Vol] 100 mg/dL High 65-99 [facility] Comment on above: Performed By: #### C BCA, CMP #### [facility] ([id number]) [address] [address] [place] [address] Potassium [Moles/Vol] 3.4 mmol/L Low 3.5-5.0 [facility] Comment on above: Performed By: #### C BCA, CMP #### [facility] ([id number]) [address] [address] [place] [address] Protein [Mass/Vol] 6.2 g/dL Normal 6.0-8.0 [facility] Comment on above: Performed By: #### C BCA, CMP #### [facility] ([id number]) [address] [address] [place] [address] Sodium [Moles/Vol] 135 mmol/L Normal 134-146 [facility] Comment on above: Performed By: #### C BCA, CMP #### [facility] ([id number]) [address] [place] [address] Urea nitrogen [Mass/Vol] 4 mg/dL Low 5-23 [facility] Comment on above: Performed By: #### C BCA, CMP #### [facility] ([id number]) [address] [place] [address] CBC AND AUTO DIFFon 10-08-19 24 ABSOLUTE BASOPHIL 0.0 X10E9/L Normal 0.0-0.2 [facility] Comment on above: Performed By: #### C BCA, CMP #### [facility] ([id number]) [address] [place] [address] ABSOLUTE NEUTROPHIL 4.9 X10E9/L Normal 1.5-6.6 [facility] Comment on above: Performed By: #### C BCA, CMP #### [facility] ([id number]) [address] [place] [address] Basophils/100 WBC (Bld) 0.2 % Normal P [facility] Comment on above: Performed By: #### C BCA, CMP #### [facility] ([id number]) [address] [place] [address] Eosinophils (Bld) [#/Vol] 0.1 10*3/uL Normal 0.0-0.4 [facility] Comment on above: Performed By: #### C BCA, CMP #### [facility] ([id number]) [address] [place] [address] Eosinophils/100 WBC (Bld) 1.3 % Normal [facility] Comment on above: Performed By: #### C BCA, CMP #### [facility] ([id number]) [address] [place] [address] Erythrocyte distribution width (RBC) [Ratio] 16.5 % High 11.5-15.0 [facility] Comment on above: Performed By: #### C BCA, CMP #### [facility] ([id number]) [address], [address] [place] [address] Hematocrit (Bld) [Volume fraction] 35.8 % Normal 35-47 [facility] Comment on above: Performed By: #### C BCA, CMP #### [facility] ([id number]) [address], [address] [place] [address] Hemoglobin (Bld) [Mass/Vol] 12.1 g/dL Normal 11.7-15.5 [facility] Comment on above: Performed By: #### C BCA, CMP #### [facility] ([id number]) [address], [facility] [address] [place] [address] Lymphocytes (Bld) [#/Vol] 1.3 10*3/uL Normal 1.0-3.5 [facility] Comment on above: Performed By: #### C BCA, CMP #### [facility] ([id number]) [address], [address] [place] [address] Lymphocytes/100 WBC (Bld) 18.8 % Normal [facility] Comment on above: Performed By: #### C BCA, CMP #### [facility] ([id number]) [address] [place] [address] MCH (RBC) [Entitic mass] 30.3 pg Normal 27-34 [facility] Comment on above: Performed By: #### C BCA, CMP #### [facility] ([id number]) [address], [address] [place] [address] MCHC (RBC) [Mass/Vol] 33.7 g/dL Normal 32-36 [facility] Comment on above: Performed By: #### C BCA, CMP #### [facility] ([id number]) [address] [place] [address] MCV (RBC) [Entitic vol] 90 fL Normal 80-100 [facility] Comment on above: Performed By: #### C BCA, CMP #### [facility] ([id number]) [address], [address] [place] [address] Monocytes (Bld) [#/Vol] 0.4 10*3/uL Normal 0-0.9 [facility] Comment on above: Performed By: #### C BCA, CMP #### [facility] ([id number]) [address], [address] [place] [address] Monocytes/100 WBC (Bld) 5.3 % Normal [facility] Comment on above: Performed By: #### C BCA, CMP #### [facility] ([id number]) [address], [address] [place] [address] Neutrophils/100 WBC (Bld) 74.4 % Normal [facility] Comment on above: Performed By: #### C BCA, CMP #### [facility] ([id number]) [address] [place] [address] Platelet mean volume (Bld) [Entitic vol] 8.6 fL Normal 7-12 [facility] Comment on above: Performed By: #### C BCA, CMP #### [facility] ([id number]) [address], [address] [place] [address] Platelets (Bld) [#/Vol] 161 10*3/uL Normal 150-450 [facility] Comment on above: Performed By: #### C BCA, CMP #### [facility] ([id number]) [address], [address] [place] [address] RBC COUNT 3.98 X10E12/L Normal 3.80-5.20 [facility] Comment on above: Performed By: #### C BCA, CMP #### [place] [facility] ([id number]) [address], [address] [place] [address] WBC (Bld) [#/Vol] 6.7 10*3/uL Normal 4.0-11.0 [facility] Comment on above: Performed By: #### C BCA, CMP #### [facility] ([id number]) [address], [address] [place] [address] COMPREHENSIVE METABOLIC PANE Alex 10-08-2023 Albumin [Mass/Vol] 3.7 g/dL Normal 3.2-5.3 [facility] Comment on above: Performed By: #### C BCA, CMP #### [facility] ([id number]) [address], [address] [place] [address] ALP [Catalytic activity/Vol] 79 U/L Normal 39-130 [facility] Comment on above: Performed By: #### C BCA, CMP #### [facility] ([id number]) [address], [address] [place] [address] ALT [Catalytic activity/Vol] 16 U/L Normal 0-31 [facility] Comment on above: Performed By: #### C BCA, CMP #### [facility] ([id number]) [address], [address] [place] [address] Anion gap [Moles/Vol] 9 mmol/L Normal 5-15 [facility] Comment on above: Performed By: #### C BCA, CMP #### [facility] ([id number]) [address], [address] [place] [address] AST [Catalytic activity/Vol] 15 U/L Normal 0-41 [facility] Comment on above: Performed By: #### C BCA, CMP #### [facility] ([id number]) [address], [address] [place] [address] Bilirubin [Mass/Vol] 0.4 mg/dL Normal 0.3-1.2 [facility] Comment on above: Performed By: #### C BCA, CMP #### [facility] ([id number]) [address], [address] [place] [address] Calcium [Mass/Vol] 8.4 mg/dL Low 8.5-10.5 [facility] Comment on above: Performed By: #### C BCA, CMP #### [facility] ([id number]) [address] [address] [place] [address] Chloride [Moles/Vol] 104 mmol/L Normal 98-109 [facility] Comment on above: Performed By: #### C BCA, CMP #### [facility] ([id number]) [address] [address] [place] [address] CO2 [Moles/Vol] 23 mmol/L Normal 22-32 [facility] Comment on above: Performed By: #### C BCA, CMP #### [facility] ([id number]) [address] [address] [place] [address] Creatinine [Mass/Vol] 0.44 mg/dL Normal 0.40-1.00 [facility] Comment on above: Result Comment: METH OD TRACEABLE TO IDMS STANDARD Performed By: #### C BCA, CMP #### [facility] ([id number]) [address] [address] [place] [address] eGFR (CKD-EPI) NON-RACE DEPENDENT >90 Normal >59 [facility] Comment on above: Result Comment: Reported eGFR is based on the CKD-EPI 2020 equation that does not use a race coefficient. Performed By: #### C BCA, CMP #### [facility] ([id number]) [address], [address] [place] [address] Glucose [Mass/Vol] 103 mg/dL High 65-99 [facility] Comment on above: Performed By: #### C BCA, CMP #### [facility] ([id number]) [address], [address] [place] [address] Potassium [Moles/Vol] 3.7 mmol/L Normal 3.5-5.0 [facility] Comment on above: Performed By: #### C BCA, CMP #### [facility] ([id number]) [address], [address] [place] [address] Protein [Mass/Vol] 6.3 g/dL Normal 6.0-8.0 [facility] Comment on above: Performed By: #### C BCA, CMP #### [facility] ([id number]) [address], [address] [place] [address] Sodium [Moles/Vol] 136 mmol/L Normal 134-146 [facility] Comment on above: Performed By: #### C BCA, CMP #### [facility] ([id number]) [address], [address] [place] [address] Urea nitrogen [Mass/Vol] 5 mg/dL Normal 5-23 [facility] Comment on above: Performed By: #### C BCA, CMP #### [facility] ([id number]) [address], [address] [address] RESP PATHOGENS/VMQN-PbS-9qt 10-08-2023 Respiratory pathogens DNA and RNA panel FREDDY+non-probe (Nph) SPECIMEN SOURCE NASO PHARYNX ADENOVIRUS Not detected (qualifier value) CORONAVIRUS 229E Not detected (qualifier value) CORONAVIRUS HKU1 Not detected (qualifier value) CORONAVIRUS NL63 Not detected (qualifier value) CORONAVIRUS OC43 Not detected (qualifier value) HUMAN METAPNEUVIRUS Not detected (qualifier value) RHINO/ENTEROVIRUS Not detected (qualifier value) INFLUENZA A Not detected (qualifier value) INFLUENZA B Not detected (qualifier value) PARAINFLUENZA 1 Not detected (qualifier value) PARAINFLUENZA 2 Not detected (qualifier value) PARAINFLUENZA 3 Not detected (qualifier value) PARAINFLUENZA 4 Not detected (qualifier value) RESP SYNCYTIAL VIRUS Not detected (qualifier value) BORD PARAPERTUSSIS Not detected (qualifier value) BORDETELLA PERTUSSIS Not detected (qualifier value) CHLAM.PNEUMONIAE Not detected (qualifier value) MYCO. PNEUMONIAE Not detected (qualifier value) SARS CoV 2 Not detected (qualifier value) NOTE The BioFire Respiratory Panel 2.1 (RP2.1) is a multiplexed nucleic acid test intended for the simultaneous qualitative detection and differentiation of nucleic acid from multiple viral and bacterial respiratory organisms, including nucleic acid from Severe Acute Respiratory Syndrome Coronavirus 2 (SARS-CoV-2), in nasopharyngeal swabs obtained from individuals suspected of COVID-19 by their healthcare provider. Testing is limited to laboratories certified under the Clinical Laboratory Improvement Amendments of 1988 (CLIA), to perform high complexity or moderate complexity tests. SARS-CoV-2 RNA and nucleic acids from the other respiratory viral and bacterial organisms identified by this test are generally detectable in nasopharyngeal swabs during the acute phase of infection. The detection and identification of specific viral and bacterial nucleic acids from individuals exhibiting signs and/or symptoms of respiratory infection is indicative of the presence of the identified microorganism and aids in the diagnosis of respiratory infection if used in conjunction with other clinical and epidemiological information. Positive results are indicative of the presence of the identified organism, but do not rule out co-infection with other pathogens. The agent(s) detected by the BioFire RP2.1 may not be the definite cause of disease and clinical correlation with patient history and other diagnostic information is necessary to determine patient infection status. Negative results in the setting of a respiratory illness may be due to infection with pathogens not detected by this test, or lower respiratory tract infection that may not be detected by a nasopharyngeal specimen. Negative results do not preclude SARS-CoV-2 infection and should not be used as the sole basis for patient management decisions. Negative KENNY-CoV-2 results must be combined with clinical observations, patient history and epidemiological information. Negative results for other organisms identified by the test may require additional laboratory testing when evaluating a patient with possible respiratory tract infection. Normal [facility] Comment on above: Performed By: #### 8 2159-5 #### [facility] ([id number]) [address] [place] [address], [address] [place] [address] CBC AND AUTO DIFFon 09-23-20 ABSOLUTE BASOPHIL 0.0 X10E9/L Normal 0.0-0.2 [facility] Comment on above: Performed By: #### Silvano JOVEL, 16451-1, 02536-1 #### [facility] ([id number]) [address], [address] [place] [address] ABSOLUTE NEUTROPHIL 4.1 X10E9/L Normal 1.5-6.6 [facility] Comment on above: Performed By: #### Silvano JOVEL, 39521-6, 59408-0 #### [facility] ([id number]) [address], [facility] [address] [place] [address] Basophils/100 WBC (Bld) 0.5 % Normal [facility] Comment on above: Performed By: #### Silvano JOVEL, 87846-8, 34052-7 #### [facility] ([id number]) [address], [address] [place] [address] Eosinophils (Bld) [#/Vol] 0.1 10*3/uL Normal 0.0-0.4 [facility] Comment on above: Performed By: #### Silvano JOVEL, 40261-5, 98327-8 #### [facility] ([id number]) [address], [address] [place] [address] Eosinophils/100 WBC (Bld) 1.6 % Normal [facility] Comment on above: Performed By: #### Silvano JOVEL, 66423-8, 13610-9 #### [facility] ([id number]) [address], [address] [place] [address] Erythrocyte distribution width (RBC) [Ratio] 15.5 % High 11.5-15.0 [facility] Comment on above: Performed By: #### Silvano JOVEL, 94243-3, 68470-4 #### [facility] ([id number]) [address], [address] [place] [address] Hematocrit (Bld) [Volume fraction] 32.8 % Low 35-47 [facility] Comment on above: Performed By: #### Silvano JOVEL, 55634-4, 77773-9 #### [facility] ([id number]) [address], [facility] [address] [place] [address] Hemoglobin (Bld) [Mass/Vol] 11.4 g/dL Low 11.7-15.5 [facility] Comment on above: Performed By: #### Silvano JOVEL, 47531-3, 63938-3 #### [facility] ([id number]) [address], [facility] [address] [place] [address] Lymphocytes (Bld) [#/Vol] 1.7 10*3/uL Normal 1.0-3.5 [facility] Comment on above: Performed By: #### Silvano JOVEL, 08094-2, 98445-3 #### [facility] ([id number]) [address], [facility] [address] [place] [address] Lymphocytes/100 WBC (Bld) 26.9 % Normal [facility] Comment on above: Performed By: #### Silvano JOVEL, 11987-2, 10514-1 #### [facility] ([id number]) [address], [facility] [address] [place] [address] MCH (RBC) [Entitic mass] 31.1 pg Normal 27-34 [facility] Comment on above: Performed By: #### Silvano JOVEL, 82961-0, 49741-8 #### [facility] ([id number]) [address], [facility] [address] [place] [address] MCHC (RBC) [Mass/Vol] 34.7 g/dL Normal 32-36 [facility] Comment on above: Performed By: #### Silvano JOVEL, 34875-4, 23808-0 #### [facility] ([id number]) [address], [address] [place] [address] MCV (RBC) [Entitic vol] 90 fL Normal 80-100 P [facility] Comment on above: Performed By: #### Silvano JOVEL, 78037-0, 27884-2 #### [facility] ([id number]) [address], [address] [place] [address] Monocytes (Bld) [#/Vol] 0.5 10*3/uL Normal 0-0.9 [facility] Comment on above: Performed By: #### Silvano JOVEL, 57048-2, 99114-3 #### [facility] ([id number]) [address], [facility] [address] [place] [address] Monocytes/100 WBC (Bld) 7.2 % Normal [facility] Comment on above: Performed By: #### Silvano JOVEL, 80451-7, 17790-9 #### [facility] ([id number]) [address], [address] [place] [address] Neutrophils/100 WBC (Bld) 63.8 % Normal [facility] Comment on above: Performed By: #### Silvano JOVEL, 67553-0, 92365-6 #### [facility] ([id number]) [address], [address] [place] [address] Platelet mean volume (Bld) [Entitic vol] 8.8 fL Normal 7-12 [facility] Comment on above: Performed By: #### Silvano JOVEL, 51107-1, 12414-7 #### [facility] ([id number]) [address], [address] [place] [address] Platelets (Bld) [#/Vol] 178 10*3/uL Normal 150-450 [facility] Comment on above: Performed By: #### Silvano JOVEL, 37353-1, 81759-9 #### [facility] ([id number]) [address], [address] [place] [address] RBC COUNT 3.66 X10E12/L Low 3.80-5.20 [facility] Comment on above: Performed By: #### Silvano JOVEL, 75465-2, 87654-3 #### [facility] ([id number]) [address] [facility] [place] [address] WBC (Bld) [#/Vol] 6.5 10*3/uL Normal 4.0-11.0 [facility] Comment on above: Performed By: #### Silvano JOVEL, 14057-4, 34028-0 #### [facility] ([id number]) [address] [facility], [address] [address] HIV 1+2 Ab+HIV1 p24 Ag IA Ql on 09-23-2023 HIV 1 and 2 Ab/Ag Screen Non-Reactive Normal NRCT [facility] Comment on above: Result Comment: This information has been disclosed to you from confidential records protected from disclosure by state law. You shall make no further disclosure of this information without the specific, written and informed release of the individual to whom it pertains, or as otherwise permitted by state law. A general authorization for the release of medical or other information is not sufficient for the purpose of the release of HIV test results or diagnoses. Performed By: #### Silvano JOVEL, 86478-7, 59361-5 #### [facility] ([id number]) [address] [facility], [facility] [address] [place] [address] T. pallidum IgG+IgM IA Ql (S )on 09-23-2023 Syphilis Total <0.2 Normal 0.0-0.8 [facility] Comment on above: Result Comment: NON REACTIVE No serologic evidence of infection to Treponema pallidum (syphilis). Repeat testing may be considered in patients with suspected acute or primary syphilis in 2 to 4 weeks. Performed By: #### Silvano JOVEL, 55921-5, 83903-7 #### [facility] ([id number]) [address], [address] [place] [address] Glucose 1 Hr post dose gluco se [Mass/Vol]on 09-21-2023 1ST HR GTT 105 mg/dL Low 120-170 [facility] Comment on above: Performed By: #### 2 0438-8 #### [facility] ([id number]) [address], [address] [place] [address] CBC AND AUTO DIFFon 09-16-20 ABSOLUTE BASOPHIL 0.0 X10E9/L Normal 0.0-0.2 [facility] Comment on above: Performed By: #### C BCA #### [facility] ([id number]) [address], [address] [place] [address] ABSOLUTE NEUTROPHIL 3.8 X10E9/L Normal 1.5-6.6 [facility] Comment on above: Performed By: #### C BCA #### [facility] ([id number]) [address], [address] [place] [address] Basophils/100 WBC (Bld) 0.2 % Normal P [facility] Comment on above: Performed By: #### C BCA #### [facility] ([id number]) [address], [address] [place] [address] Eosinophils (Bld) [#/Vol] 0.1 10*3/uL Normal 0.0-0.4 [facility] Comment on above: Performed By: #### C BCA #### [facility] ([id number]) [address], [address] [place] [address] Eosinophils/100 WBC (Bld) 1.6 % Normal [facility] Comment on above: Performed By: #### C BCA #### [facility] ([id number]) [address], [address] [place] [address] Erythrocyte distribution width (RBC) [Ratio] 14.8 % Normal 11.5-15.0 [facility] Comment on above: Performed By: #### C BCA #### [facility] ([id number]) [address], [address] [place] [address] Hematocrit (Bld) [Volume fraction] 32.5 % Low 35-47 [facility] Comment on above: Performed By: #### C BCA #### [facility] ([id number]) [address], [address] [place] [address] Hemoglobin (Bld) [Mass/Vol] 11.0 g/dL Low 11.7-15.5 [facility] Comment on above: Performed By: #### C BCA #### [facility] ([id number]) [address], [address] [place] [address] Lymphocytes (Bld) [#/Vol] 1.7 10*3/uL Normal 1.0-3.5 [facility] Comment on above: Performed By: #### C BCA #### [facility] ([id number]) [address], [address] [place] [address] Lymphocytes/100 WBC (Bld) 28.2 % Normal [facility] Comment on above: Performed By: #### C BCA #### [facility] ([id number]) [address], [address] [place] [address] MCH (RBC) [Entitic mass] 29.6 pg Normal 27-34 [facility] Comment on above: Performed By: #### C BCA #### [facility] ([id number]) [address], [address] [place] [address] MCHC (RBC) [Mass/Vol] 34.0 g/dL Normal 32-36 [facility] Comment on above: Performed By: #### C BCA #### [facility] ([id number]) [address], [address] [place] [address] MCV (RBC) [Entitic vol] 87 fL Normal 80-100 P [facility] Comment on above: Performed By: #### C BCA #### [facility] ([id number]) [address], [facility] [address] [place] [address] Monocytes (Bld) [#/Vol] 0.4 10*3/uL Normal 0-0.9 [facility] Comment on above: Performed By: #### C BCA #### [facility] ([id number]) [address], [facility] [address] [place] [address] Monocytes/100 WBC (Bld) 7.3 % Normal [facility] Comment on above: Performed By: #### C BCA #### [facility] ([id number]) [address], [facility] [address] [place] [address] Neutrophils/100 WBC (Bld) 62.7 % Normal [facility] Comment on above: Performed By: #### C BCA #### [facility] ([id number]) [address], [facility] [address] [place] [address] Platelet mean volume (Bld) [Entitic vol] 9.0 fL Normal 7-12 [facility] Comment on above: Performed By: #### C BCA #### [facility] ([id number]) [address], [address] [place] [address] Platelets (Bld) [#/Vol] 163 10*3/uL Normal 150-450 [facility] Comment on above: Performed By: #### C BCA #### [facility] ([id number]) [address], [facility] [address] [place] [address] RBC COUNT 3.73 X10E12/L Low 3.80-5.20 [facility] Comment on above: Performed By: #### C BCA #### [facility] ([id number]) [address] [place] [address] WBC (Bld) [#/Vol] 6.0 10*3/uL Normal 4.0-11.0 [facility] Comment on above: Performed By: #### C BCA #### [facility] ([id number]) [address] [place] [address] Alanine aminotransferase [En zymatic activity/volume] in Serum or PlasmaOrdered By: Mishel Dimas on 03-26-2023 ALT [Catalytic activity/Vol] 13 U/L 7-52 [facility] Albumin [Mass/volume] in Ser um or Plasma by Bromocresol green (BCG) dye binding methoOrdered By: Mishel Dimas on 03-26-2023 Albumin BCG dye [Mass/Vol] 4.8 g/dL 3.5-5.7 [facility] Alkaline phosphatase [Enzyma tic activity/volume] in Serum or PlasmaOrdered By: Mishel Dimas on 03-26-2023 ALP [Catalytic activity/Vol] 60 U/L 34-104 [facility] Aspartate aminotransferase [ Enzymatic activity/volume] in Serum or PlasmaOrdered By: Mishel Dimas on 03-26-2023 AST [Catalytic activity/Vol] 18 U/L 13-39 [facility] Basophils Auto (Bld) [#/Vol] Ordered By: Mishel Dimas on 03-26-2023 Basophils (Bld) [#/Vol] 0.0 10*3/uL 0.0-0.2 [facility] Basophils/100 WBC Auto (Bld) Ordered By: Mishel Dimas on 03-26-2023 Basophils/100 WBC (Bld) 0.4 % . [facility] Bilirubin.total [Mass/volume ] in Serum or PlasmaOrdered By: Mishel Dimas on 03-26-2023 Bilirubin [Mass/Vol] 0.5 mg/dL 0.3-1.0 [facility] Calcium [Mass/volume] in Ser um or PlasmaOrdered By: Mishel Dimas on 03-26-2023 Calcium [Mass/Vol] 9.5 mg/dL 8.6-10.3 [facility] Carbon dioxide, total [Moles /volume] in Serum or PlasmaOrdered By: Mishel Dimas on 03-26-2023 CO2 [Moles/Vol] 27.7 mmol/L 21.0-31.0 [facility] Chloride [Moles/volume] in S griffin or PlasmaOrdered By: Mishel Dimas on 03-26-2023 Chloride [Moles/Vol] 107 mmol/L 98-107 [facility] Complete Blood Count Auto Di ffon 03-26-2023 Basophils (Bld) [#/Vol] 0.0 10*3/uL Normal 0.0-0.2 [facility] Comment on above: Order Comment: Reaso n for Exam Wellness examination;Screening for metabolic disorder;Screen Result Comment: PERF ORMED BY: [place] [address] PATHOLOGIST [employer] ELYSE WHIPPLE M.D. Performed By: #### T SH3 wRFLX, CMP, CBC #### [facility] [address] [place] [address] [place] Basophils/100 WBC (Bld) 0.4 % Normal . T darryl [facility] Comment on above: Order Comment: Reaso n for Exam Wellness examination;Screening for metabolic disorder;Screen Performed By: #### T SH3 wRFLX, CMP, CBC #### [facility] [address] [place] [address] [place] Eosinophils (Bld) [#/Vol] 0.1 10*3/uL Normal 0.0-0.45 [facility] Comment on above: Order Comment: Reaso n for Exam Wellness examination;Screening for metabolic disorder;Screen Performed By: #### T SH3 wRFLX, CMP, CBC #### [facility] [address] [place] [address] [place] Eosinophils/100 WBC (Bld) 2.7 % Normal . [facility] Comment on above: Order Comment: Reaso n for Exam Wellness examination;Screening for metabolic disorder;Screen Performed By: #### T SH3 wRFLX, CMP, CBC #### [address] [place] [address] [place] Erythrocyte distribution width (RBC) [Ratio] 15.2 % Normal 11.9-15.3 [facility] Comment on above: Order Comment: Reaso n for Exam Wellness examination;Screening for metabolic disorder;Screen Performed By: #### T SH3 wRFLX, CMP, CBC #### [address] Hematocrit (Bld) [Volume fraction] 39.5 % Normal 34.0-46.4 [facility] Comment on above: Order Comment: Reaso n for Exam Wellness examination;Screening for metabolic disorder;Screen Performed By: #### T SH3 wRFLX, CMP, CBC #### [address] Hemoglobin (Bld) [Mass/Vol] 13.3 g/dL Normal 11.8-15.4 [facility] Comment on above: Order Comment: Reaso n for Exam Wellness examination;Screening for metabolic disorder;Screen Performed By: #### T SH3 wRFLX, CMP, CBC #### [address] Lymphocytes (Bld) [#/Vol] 1.4 10*3/uL Normal 1.00-4.8 [facility] Comment on above: Order Comment: Reaso n for Exam Wellness examination;Screening for metabolic disorder;Screen Performed By: #### T SH3 wRFLX, CMP, CBC #### [address] Lymphocytes/100 WBC (Bld) 35.6 % Normal . [facility] Comment on above: Order Comment: Reaso n for Exam Wellness examination;Screening for metabolic disorder;Screen Performed By: #### T SH3 wRFLX, CMP, CBC #### [address] MCH (RBC) [Entitic mass] 28.5 pg Normal 24.7-34.3 [facility] Comment on above: Order Comment: Reaso n for Exam Wellness examination;Screening for metabolic disorder;Screen Performed By: #### T SH3 wRFLX, CMP, CBC #### [facility] [address] [place] [address] MCV (RBC) [Entitic vol] 85.1 fL Normal 80-100 [facility] Comment on above: Order Comment: Reaso n for Exam Wellness examination;Screening for metabolic disorder;Screen Performed By: #### T SH3 wRFLX, CMP, CBC #### [address] Mean Corpuscular HGB Conc 33.5 g/dL Normal 32.0-35.0 [facility] Comment on above: Order Comment: Reaso n for Exam Wellness examination;Screening for metabolic disorder;Screen Performed By: #### T SH3 wRFLX, CMP, CBC #### [place] [address] [place] Monocytes (Bld) [#/Vol] 0.2 10*3/uL Normal 0.0-0.8 [facility] Comment on above: Order Comment: Reaso n for Exam Wellness examination;Screening for metabolic disorder;Screen Performed By: #### T SH3 wRFLX, CMP, CBC #### [place] [address] [place] Monocytes/100 WBC (Bld) 5.3 % Normal . T [facility] Comment on above: Order Comment: Reaso n for Exam Wellness examination;Screening for metabolic disorder;Screen Performed By: #### T SH3 wRFLX, CMP, CBC #### [place] [address] [place] Neutrophils (Bld) [#/Vol] 2.2 10*3/uL Normal 1.8-7.7 [facility] Comment on above: Order Comment: Reaso n for Exam Wellness examination;Screening for metabolic disorder;Screen Performed By: #### T SH3 wRFLX, CMP, CBC #### [place] [address] [place] Neutrophils/100 WBC (Bld) 56.0 % Normal . [facility] Comment on above: Order Comment: Reaso n for Exam Wellness examination;Screening for metabolic disorder;Screen Performed By: #### T SH3 wRFLX, CMP, CBC #### [address] [place] [address] [place] NRBC% 0.3 /100{WBC} Normal 0-0.5 The [facility] Comment on above: Order Comment: Reaso n for Exam Wellness examination;Screening for metabolic disorder;Screen Performed By: #### T SH3 wRFLX, CMP, CBC #### [facility] [address] Platelet mean volume (Bld) [Entitic vol] 9.4 fL Normal 6.3-10.7 The [facility] Comment on above: Order Comment: Reaso n for Exam Wellness examination;Screening for metabolic disorder;Screen Performed By: #### T SH3 wRFLX, CMP, CBC #### [facility] [address] Platelets (Bld) [#/Vol] 185 10*3/uL Normal 150-450 [facility] Comment on above: Order Comment: Reaso n for Exam Wellness examination;Screening for metabolic disorder;Screen Performed By: #### T SH3 wRFLX, CMP, CBC #### [facility] [address] RBC (Bld) [#/Vol] 4.65 10*6/uL Normal 3.60-5.[address] [facility] Comment on above: Order Comment: Reaso n for Exam Wellness examination;Screening for metabolic disorder;Screen Performed By: #### T SH3 wRFLX, CMP, CBC #### [address] WBC (Bld) [#/Vol] 3.9 10*3/uL Normal 3.8-11.6 The [facility] Comment on above: Order Comment: Reaso n for Exam Wellness examination;Screening for metabolic disorder;Screen Performed By: #### T SH3 wRFLX, CMP, CBC #### [address] Comprehensive Metabolic Pane alex 03-26-2023 Albumin [Mass/Vol] 4.8 g/dL Normal 3.5-5.7 The [facility] Comment on above: Order Comment: Reaso n for Exam Wellness examination;Screening for metabolic disorder;Screen Performed By: #### T SH3 wRFLX, CMP, CBC #### [address] Albumin/Globulin [Mass ratio] 1.9 {ratio} Normal [facility] Comment on above: Order Comment: Reaso n for Exam Wellness examination;Screening for metabolic disorder;Screen Performed By: #### T SH3 wRFLX, CMP, CBC #### [address] ALP [Catalytic activity/Vol] 60 U/L Normal 34-104 [facility] Comment on above: Order Comment: Reaso n for Exam Wellness examination;Screening for metabolic disorder;Screen Performed By: #### T SH3 wRFLX, CMP, CBC #### [address] ALT [Catalytic activity/Vol] 13 U/L Normal 7-52 [facility] Comment on above: Order Comment: Reaso n for Exam Wellness examination;Screening for metabolic disorder;Screen Performed By: #### T SH3 wRFLX, CMP, CBC #### [address] Anion gap [Moles/Vol] 9.8 mmol/L Normal 6.0-15.0 [facility] Comment on above: Order Comment: Reaso n for Exam Wellness examination;Screening for metabolic disorder;Screen Performed By: #### T SH3 wRFLX, CMP, CBC #### [facility] [address] [place] [address] [place] AST [Catalytic activity/Vol] 18 U/L Normal 13-39 [facility] Comment on above: Order Comment: Reaso n for Exam Wellness examination;Screening for metabolic disorder;Screen Performed By: #### T SH3 wRFLX, CMP, CBC #### [place] [address] [place] Bilirubin [Mass/Vol] 0.5 mg/dL Normal 0.3-1.0 [facility] Comment on above: Order Comment: Reaso n for Exam Wellness examination;Screening for metabolic disorder;Screen Performed By: #### T SH3 wRFLX, CMP, CBC #### [facility] [address] Calcium [Mass/Vol] 9.5 mg/dL Normal 8.6-10.3 [facility] Comment on above: Order Comment: Reaso n for Exam Wellness examination;Screening for metabolic disorder;Screen Performed By: #### T SH3 wRFLX, CMP, CBC #### [facility] [address] [place] [address] [place] Chloride [Moles/Vol] 107 mmol/L Normal 98-107 [facility] Comment on above: Order Comment: Reaso n for Exam Wellness examination;Screening for metabolic disorder;Screen Performed By: #### T SH3 wRFLX, CMP, CBC #### [facility] [address] CO2 [Moles/Vol] 27.7 mmol/L Normal 21.0-31.0 The [facility] Comment on above: Order Comment: Reaso n for Exam Wellness examination;Screening for metabolic disorder;Screen Performed By: #### T SH3 wRFLX, CMP, CBC #### [address] Creatinine [Mass/Vol] 0.74 mg/dL Normal 0.60-1.20 [facility] Comment on above: Order Comment: Reaso n for Exam Wellness examination;Screening for metabolic disorder;Screen Performed By: #### T SH3 wRFLX, CMP, CBC #### [place] [address] [place] GFR/1.73 sq M.predicted MDRD (S/P/Bld) [Vol rate/Area] mL/min/{1.73_m2} Normal [facility] Comment on above: Order Comment: Reaso n for Exam Wellness examination;Screening for metabolic disorder;Screen Performed By: #### T SH3 wRFLX, CMP, CBC #### [facility] [address] [place] [id number] [place] Globulin (S) [Mass/Vol] 2.5 g/dL Normal T [facility] Comment on above: Order Comment: Reaso n for Exam Wellness examination;Screening for metabolic disorder;Screen Performed By: #### T SH3 wRFLX, CMP, CBC #### [facility] [address] [place] [address] [place] Glucose [Mass/Vol] 85 mg/dL Normal 70-100 The [facility] Comment on above: Order Comment: Reaso n for Exam Wellness examination;Screening for metabolic disorder;Screen Result Comment: [facility] Glucose Reference Range is dependent on time and content of last meal. Glucose of more than 200 mg/dL in a nonstressed, ambulatory subject supports the diagnosis of Diabetes Mellitus. ADA recommended reference range Performed By: #### T SH3 wRFLX, CMP, CBC #### [facility] [address] [place] [address] [place] Potassium [Moles/Vol] 4.5 mmol/L Normal 3.5-5.1 [facility] Comment on above: Order Comment: Reaso n for Exam Wellness examination;Screening for metabolic disorder;Screen Performed By: #### T SH3 wRFLX, CMP, CBC #### [facility] [address] [place] [address] [place] Protein [Mass/Vol] 7.3 g/dL Normal 6.4-8.9 [facility] Comment on above: Order Comment: Reaso n for Exam Wellness examination;Screening for metabolic disorder;Screen Performed By: #### T SH3 wRFLX, CMP, CBC #### [facility] [address] [place] [address] [place] Sodium [Moles/Vol] 140 mmol/L Normal 136-145 [facility] Comment on above: Order Comment: Reaso n for Exam Wellness examination;Screening for metabolic disorder;Screen Performed By: #### T SH3 wRFLX, CMP, CBC #### [facility] [address] [place] [address] [place] Urea nitrogen [Mass/Vol] 13 mg/dL Normal 7-25 [facility] Comment on above: Order Comment: Reaso n for Exam Wellness examination;Screening for metabolic disorder;Screen Performed By: #### T SH3 wRFLX, CMP, CBC #### [facility] [address] [place] [address] [place] Creatinine [Mass/volume] in Serum or PlasmaOrdered By: Mishel Dimas on 03-26-2023 Creatinine [Mass/Vol] 0.74 mg/dL 0.60-1.20 [facility] Eosinophils Auto (Bld) [#/Vo l]Ordered By: Mishel Dimas on 03-26-2023 Eosinophils (Bld) [#/Vol] 0.1 10*3/uL 0.0-0.45 [facility] Eosinophils/100 WBC Auto (Bl d)Ordered By: Mishel Dimas on 03-26-2023 Eosinophils/100 WBC (Bld) 2.7 % . [facility] Erythrocyte distribution wid th Auto (RBC) [Ratio]Ordered By: Mishel Dimas on 03-26-2023 Erythrocyte distribution width (RBC) [Ratio] 15.2 % 11.9-15.3 [facility] Globulin Calc (S) [Mass/Vol] Ordered By: Mishel Dimas on 03-26-2023 Globulin (S) [Mass/Vol] 2.5 g/dL [facility] Glucose [Mass/volume] in Ser um or PlasmaOrdered By: Mishel Dimas on 03-26-2023 Glucose [Mass/Vol] 85 mg/dL 70-100 [facility] Comment on above: ADA recommended refe rence rangeRandom Glucose Reference Range is dependent on time and content of last meal. Glucose of more than 200 mg/dL in a nonstressed, ambulatory subject supports the diagnosis of Diabetes Mellitus. Hematocrit Auto (Bld) [Volum e fraction]Ordered By: Mishel Dimas on 03-26-2023 Hematocrit (Bld) [Volume fraction] 39.5 % 34.0-46.4 [facility] Hemoglobin [Mass/volume] in BloodOrdered By: Mishel Dimas on 03-26-2023 Hemoglobin (Bld) [Mass/Vol] 13.3 g/dL 11.8-15.4 [facility] Leukocytes [#/volume] correc riogberto for nucleated erythrocytes in Blood by Automated counOrdered By: Mishel Dimas on 03-26-2023 WBC corrected for nucl RBC Auto (Bld) [#/Vol] 3.9 10*3/uL 3.8-11.6 [facility] Lymphocytes Auto (Bld) [#/Vo l]Ordered By: Mishel Dimas on 03-26-2023 Lymphocytes (Bld) [#/Vol] 1.4 10*3/uL 1.00-4.8 [facility] Lymphocytes/100 WBC Auto (Bl d)Ordered By: Mishel Dimas on 03-26-2023 Lymphocytes/100 WBC (Bld) 35.6 % . [facility] MCH Auto (RBC) [Entitic mass ]Ordered By: Mishel Dimas on 03-26-2023 MCH (RBC) [Entitic mass] 28.5 pg 24.7-34.3 [facility] MCHC Auto (RBC) [Mass/Vol]Or dered By: Mishel Dimas on 03-26-2023 MCHC (RBC) [Mass/Vol] 33.5 g/dL 32.0-35.0 [facility] MCV Auto (RBC) [Entitic vol] Ordered By: Mishel Dimas on 03-26-2023 MCV (RBC) [Entitic vol] 85.1 fL 80-100 [facility] Monocytes Auto (Bld) [#/Vol] Ordered By: Mishel Dmias on 03-26-2023 Monocytes (Bld) [#/Vol] 0.2 10*3/uL 0.0-0.8 [facility] Monocytes/100 WBC Auto (Bld) Ordered By: Mishel Dimas on 03-26-2023 Monocytes/100 WBC (Bld) 5.3 % . [facility] Neutrophils Auto (Bld) [#/Vo l]Ordered By: Mishel Dimas on 03-26-2023 Neutrophils (Bld) [#/Vol] 2.2 10*3/uL 1.8-7.7 [facility] Neutrophils/100 WBC Auto (Bl d)Ordered By: Mishel Dimas on 03-26-2023 Neutrophils/100 WBC (Bld) 56.0 % . [facility] No Panel InformationOrdered By: Mishel Dimas on 03-26-2023 Estimated GFR (CKD-EPI) > 60.0 mL/Min [facility] Creatinine Clearance (Chem N/A [facility] Nucleated erythrocytes [Pres ence] in Blood by Automated countOrdered By: Mishel Dimas on 03-26-2023 Nucleated RBC Auto Ql (Bld) 0.3 /100{WBC} 0-0.5 [facility] Platelet mean volume Auto (B ld) [Entitic vol]Ordered By: Mishel Dimas on 03-26-2023 Platelet mean volume (Bld) [Entitic vol] 9.4 fL 6.3-10.7 [facility] Platelets Auto (Bld) [#/Vol] Ordered By: Mishel Dimas on 03-26-2023 Platelets (Bld) [#/Vol] 185 10*3/uL 150-450 [facility] Potassium [Moles/volume] in Serum or PlasmaOrdered By: Mishel Dimas on 03-26-2023 Potassium [Moles/Vol] 4.5 mmol/L 3.5-5.1 [facility] Protein [Mass/volume] in Ser um or PlasmaOrdered By: Mishel Dimas on 03-26-2023 Protein [Mass/Vol] 7.3 g/dL 6.4-8.9 [facility] RBC Auto (Bld) [#/Vol]Ordere d By: Mishel Dimas on 03-26-2023 RBC (Bld) [#/Vol] 4.65 10*6/uL 3.60-5.00 [facility] Serum or plasma albumin/glob ulin mass ratioOrdered By: Mishel Dimas on 03-26-2023 Albumin/Globulin [Mass ratio] 1.9 {ratio} [facility] Serum or plasma anion gap de terminationOrdered By: Mishel Dimas on 03-26-2023 Anion gap [Moles/Vol] 9.8 mmol/L 6.0-15.0 [facility] Sodium [Moles/volume] in Ser um or PlasmaOrdered By: Mishel Dimas on 03-26-2023 Sodium [Moles/Vol] 140 mmol/L 136-145 [facility] Thyroid Stim Hormone w/Rflxo n 03-26-2023 Thyroid Stim Hormone w/Rflx 1.38 u[iU]/mL Normal 0.45-5.33 [facility] Comment on above: Order Comment: Reaso n for Exam Wellness examination;Screening for metabolic disorder;Screen Result Comment: PERF ORMED BY: [place] [address] PATHOLOGIST [employer] ELYSE WHIPPLE M.D. Performed By: #### T SH3 wRFLX, CMP, CBC #### [facility] [address] Thyrotropin [Units/volume] i n Serum or PlasmaOrdered By: Mishel Dimas on 03-26-2023 TSH Qn 1.38 m[IU]/L 0.45-5.33 [facility] Urea nitrogen [Mass/volume] in Serum or PlasmaOrdered By: Mishel Dimas on 03-26-2023 Urea nitrogen [Mass/Vol] 13 mg/dL 04-22 [facility] WBC Auto (Bld) [#/Vol]Ordere d By: Mishel Dimas on 03-26-2023 WBC (Bld) [#/Vol] 3.9 10*3/uL 3.8-11.6 [facility] Coding Summaryon 07-25-2022 Coding Summary HTMLBase 64 MpdjuzkbZMe7xZy+PGh lYWQ+RO4SDJIvC58nsG WhiV6KG4yAVO2NSSOZV BKVFU6ZTL2kmDI8KJlb X9NxwoWo JsrvdFAiMR78VHj6ATG 9kMirQReelG0ahGJmU2 j8UkMjRU98cY88WVsyB QPiLjG6JqIfgvmbcIUs T5ruFoUzmIXkDir+PHR hYmxlIHdpZHRoPScxMD ByXtUybThrRO6vSd4uC GVyLWNvbGxhcHNlOiBj o1nxYVIpICwmCL5iqGy fX1QhgCU2BEVjb3q3Zx 48dHI+WUKfUMF5jBmvO Duig989CkQes0xjAEO8 aGRuXWfgULO6A99ng5M 6YXLpGGFsTVL1wPN9sH 6oyUululgnH6DcoHHpJ cE4SFU5hITlqV3uhEkx wpgqsL5eNld+E13RWX7 LWQGTRR6OAsp6P7UaQk wvdHI+YT51UMUgXZ57v TIcyJMox3zqhMz9SrRh DXPeHXL0lFlsZFtzy1Q nJOShV23nyBPul9O8LU BybHmlbFMfMjUnkYP3d L5wADedrzfky5gyiswx Jqsly4mcih84bV21D04 sEMmgFSWmXJP4TTHgXL TrqPwovn3shB2oFg5+I Ruyb6riq1dviLk1JiZd PGDtrvJudUshYSH3y2C cCb73G1OraTtya1JmVf p3nv77uXEbv2U2aHX1Z HxuYHLvpE5dJXayKdR3 VTYnUtAwzL13cVVdFKw oCt7doZocrOpvBN3wOG DblbmcIZIjnQ5uLXKhn ELimPitCM6aIUNwfdna l099FxKhDXN9EYSwlTM oJ5YrzF3uTwMtRGKwMB UhZ9AmgSJvPXyjQ154H AncSyK2GLWoizTfB8Xk DEOkyKbhXrX8t9V2Py8 Bh0NuzxgxSAW1BPrdMT PkTyL1JiBnNuO9S3CmH ru7VYTpeDxzAD3sR2Li HPWdwrnyyvjmqYQ4NFJ eKRTteL84xENuLGejTo 0rl7C0i040MADaBXXoh A61Zf4swJvjVYTzeIOD wW5httder3oeaulhRjH bOLNsLVe8KMi1LTZkkA ioOzBvPBK2QjR2AVI6o ULybG5nfHkhnucemY8v Oyc+N83hoA6lUCO5MBO 6yjtcNQZwnjJmZS80ZB 34B5JdYtxsvTPrjLU+P EWtqfKftQblFV9pMfWp t1zra4VoRFocT6ByCMM gYNlbFji8HEDnLAE3yG M7dT9lYKVzHVdrg7Y1j YY0T6UhyhGjev0xr6lv NMMgQZtjG22epIHde9A 7HTIvjZE0IENhsZpcFy ByaC17Ehu+PGNvbGdyb 7XdXvzlk0vgh1izcYz8 IjMwJSIgdmFsaWduPSJ 7o2TiFz47W92pDFwjKA RoPSIxNSUiIHZhbGlnb z6etZ2kBy3+PGNvbCB3 xBG6rC5aFCSwRyM2GPq yI079PuCoxHXgCavlr6 jfm2tstMl7ElPoGVGtb aKtoTdzXFW6f4UhVd20 R69qMCuhSBVjLXPsXIM aGIIjdUdllh7ieH4xYg 8+QS6oc3rnoq85cL12k HI+TZXdPUD7mBvqYFln UMFlbK0pQGpiZbB8RER oScJhdG02cBGdQBkcXk 2bmUvrtNynOS9sQOGhb mimq127JhGcm0ouVLXw sULjMDqeSWE9S51bs2R 0DUBgPIXjQNH4aMO0aK 1hbGlnbjogbGVmdDsgd bPkpGhnAHvjBJllI858 IHRvcDsnPlBhdGllbnQ iWkYjHMe3W5PuXse6TF MreExyED8vaMFyVSkyY n9lnKekyFhbZE9xEFZi btouk697OvYzf3qnLNW mnCIeHWnwADL0B87mx2 Q0QEPeEDWdXRI0uYR1k M7plKhxgktroKTizVjr xgVyvHxxMUmkFAteA49 6IHRvcDsnPkJpcnRoIE GmdXE0FU53VT44fWRzv 3U8rNA3P4AlEMXqtfqy nhbcsFD9NZBtGBOxeS8 5Xv7dhQexWt2vLJIsEJ X1HXVgcUQuS6EykY4eR zTkTOEcECLyT1BhiTKg GGqfU601GIupPmB1STD jufBxX0PwNSYpnMqzJn M9t1U7Zu6TC6Q6NZ15Q J82dKYug2Q5uOS1G1Hv FLQwrndvwlupcRA9JOQ tIPTkpA03Dz7vtHqrUr 9gYSDwMWJ2POQdvKOqQ 5FxyS8hJhMcVLZrMQGt M6IkuJSyNNqiT647SDw nAoG3TZVfvyOhA4TlYW IllEaxXoN8c7M0Ks4BH Vj7FH01AH33mGRga5D7 mOZ0I8WlUQSyuaorijw ppVX7ACTwUEHzgA68Ox 7ppWraXj2cQRYgALC5O BOfnKHvH6RfvF1tVrPe KVXhRYKiJ8HhrGIlGSq bO527BZkjQmR6NUJwnh ClK6ZnKDFgmOqqHqL6s 4J0Fv3BWNJcIJ59WQF2 cHE0XP76NX61B5EcXxd vdGFibGU+PHRhYmxlIH dpZHRoPScxMDAlJyBzd RcwQQ2aGj8hWWBtASMp wQnzuIKkSqJhg8ypTZA zBWgkJF4phQhiN2VwxL K0QENzr5w3Mx86W97kG 3JvdXA+DNNavQE2nEY2 nK7qXlRcIlA5PIkdD91 7XhVxbIKzIxspn1cci5 qijXh8OtY4PSOipxXtp SedYJB8u5DyLg92B64i IHdpZHRoPSIxNSUiIHZ ltNqhdo7wuG1oEm0+PG BliZF5kNO6sI3fPbHjC dD7HWsiG442JmYkzLSd Fzrzy5zyd6wtiNk2IwX dWLTwqbGryEghQGZ7a1 SkAl21A4LjsNtwo4XoD oo6vn89cSVbg9U4tRS0 Q6SrCMIpilfqkZHvuEt aMK8sPRWajpxrUSQoqY 8nXQZhU6o0JoOtNcB2W ZakW4XqkiZ7KCVmjDBy REhrBSX8A74eb6A2YFG uZMEpDCB0zEK9sO0cmB lnbjogbGVmdDsgdmVyd LjtHJtnEUjtC292SGAm yFjuTJNwmH9zXXLnkFL swXmhJN6bTHVzqfizBs IHIG2GJmhpLKPCBWYMY gNHDK4KJF19UB26fBOh q2E2jGJ6D6NoRRVctez idggdxYV6ZFCyRTHdxH 01mSSyNEwjLq4lx3K5v 524WSRqUQMlyY64Of7x kIzdAZEcwIOOhN9wkde xz6wtpaflThLqHIWtQP i0HNk8YACmpGkzCuOiO NW2OiV8SJN2eCDdtS1z rOndnwpljN2vYou+MTE vMTMvMjAwMzwvdGQ+PH QoAZM7bTauKZprWVKqm T2zYPNrS4r7FeGcDcI8 YYuzL5JoNFXwabdgYe9 7pS6vUdIyQyC3UZcbR3 AhwcV7OCOsuQXgGDrlR KU3B48vg2E2OYLdSNQf LOA6dWD8bD6nuYnmbbk gbGVmdDsgdmVydGljYW ubATzoM049EOXukGpoI cJ1TKzqYJXzWL18JQ63 oUZsd9G0bAN9S9GjSIL ygaogsfotlRN5FUEdLA BbnB93mEIwVKxeKt1if 3F2k353TLQkQQHtqU43 Qx0cqXbcFVZsyWIXcE7 trjzyj1qarohdAyDcLC DpWQo6VLp5TFGraZbvW mHrCPN1GiL4ZGH0oLPf pJ2mpBlzkfibxD4vUcb +AtETFHiJFB26ID40nJ Fse5O5nKZ1U3IzIPNok pzrtzojzGB3BOOwVTMf vU55tWXnUObvLi4ve9O 9l147LOMsDQYysL69Mq 0iaTsoMQMhnHODdU1at swlk5xrdzblKuSgIMEg IBw7BKa1YTOjuYmhCmK nJER2YfX8VVM9kYBgfW 4mwQhrunnkqV8bOvb+T 0P0L8ZwQwfkjWB+PC90 TCUgFK30jAByqEIrh7e kiHb7UnWfBMPpCLY9yS fqDBirk4VwTIVyR85fk ZOak1D4JYJouPuwhFCj PfSuiVK9qV8kRLdtkes jm1dgimpdQdpvb8alhz 82gA68L42pULvnBIGmG TQpPJRuNYTjxYcbpu5c tK0zVc1+DHDvrYK7oEV 2xI6rEeAwIdW0ZLcdP2 70RgOxyLGkNgqem3qhh 0kqoZn9BjKiAKTerjDc nFvkCSH9e5XmFp91R34 sIHdpZHRoPSIyMCUiIH SppAjfor4lnC5cZf8+P L5iy7oapv02oX81hBS+ MXShXOI9iWbkCVcwZDV dmY6zXXdsRgH0QQQeZt XslC80bJWiXHmrNo7rb XfvaAinCV7iELWwkebe k344LcNml9jlDMWugOR iUMfgMVL3J69fq9W2NR XtEWSqNWM7qJP3eB9on GlnbjogbGVmdDsgdmVy sAiiTWchQRfuS170IZJ vdFzmFdDcdRXnV0ycto MZCZ9pKjjxwKK+PHRkI CB4nTfuVVggOBYuhA7k AXCdR6k1LhSqJwU2MPb tS1NigvI0NOLexGHuOP PtiUZChE4vucujv2lbc usaHuTbIFPxQTo9CQx8 JQEbxNmjRqRhEUI4JmF 9MHO7bFLaqQ8mbTahps ncsU5qXls+RklOOjwvd GQ+HNSuQHH9dIhiIOwc JUXzoH6eZHDfV2k3RjM hDqE5QSlgP8PlbbT8BG FxhDViVYHkzNWVhB0ih fooy9lfskkqOxRlBSDe KAx5CYl3SUYivQhmUpR yHEO2CmX1VVF7cOGzaV 6rwChkabkshC6sKgb+T VJOOjwvdGQ+PHRkIHN0 sOuaVGswYKZnqN2vMXT wB3g9KiOzXlU3TTlbH9 FsmuK3FDExkGBdGBTgg JWMwI1cxdiig1xizorc FbFgIBStMYm0UXs1BMZ xbUdyEjQqLFW6MoP2UL B8zHVgeS9ykChrbaskx G9wOyc+MDD7FQB6AX34 RZ92C1EeErfkiIXtuCF +PHRhYmxlIHdpZHRoPS zbPUSkRkZcjGswTR7vA r1wRZBlWMQntEtwpSOn OiB (more content not included)... [facility] Coding Summary HTMLBase 64 IqefmqvhUZy5rJe+PGh lYWQ+LY1GYUKtW30eiI NkzD8YI4qNBS8ZMKZDH TKCVO1VJN6phFL7CKrg K5ScuyHg FxvdxEHtWA27XBi7UYQ 4eMikGEpkiF0yvHAcJ4 t1AgNcZP63zY57XJwkG UVvEuV5TfEdjdvmaSUt R7gnJwDafPCyKfa+PHR hYmxlIHdpZHRoPScxMD AuTfXczVwyOG6uVt2hN GVyLWNvbGxhcHNlOiBj o0cuHYFrRGgwKU6knZq dI4UvzDN1NGNxm2a7Ox 48dHI+BBCfKKH8iUdmY Eutu138EiFlt4hqGMC4 mTOpOQmnNPX6R32qt5J 8JYPvMKSyDZW4fPS3lA 0qkVivsvqnJ6EbeQPgJ nC8DKX8vRLtvA2fuSnr jhbpsX1cEum+T87PZN6 VBLDAQF7RKsd6C1GvMn wvdHI+GO76JMMjQB93a TYugSJgh6hofUk1DhTi NMRaCUN1jLdoLTbuo9J mFIWxM85nnAYnf7K1PV GdoDvkmWOxGxZhyFS6f A7cIQvpoxwjb6hxkfgc Bqoum5xlfo87rH69C88 wRRjyEISbOJV3GXYcIP DxuThvmo7ppU2eDz8+I Ulol4egy3qsrOd0FbPp FSOyknDvcSbrKYF5v4R xDz55Z5RuhDtlh6JuYb k9jz59rGZfs3D4tIS5W LvrHKLtdD5bDCtcQmH5 LJFqXmZeoI92rCUmPVa vOb4vuGxtiUrcGB8xIP YjwzmeULUmcV3tIXLmo ZKajKnrTW1jPFDwcqnu h492DmEaXCX0UNFrwGN yR5PkjG6kRrJtFWCnDQ MtB2TqmDYrAOfzA310P EijIxA0JZSueiYmX2St ZDIitSnvTsU5m3U8Et2 Vo8JprqnfGLL0RVgjUV RwZjY5WkQaTgV6O0WrT qe8CIXsrBqjNL6xY8Sc XLIygtkkkpkqrWD7JMP hMEGflX77tTRtSUxrWw 1bv3M6a924UNXoQFKzr F93Zo1niPoeRGRhaPLN rG0wvuybi7gpqwhpYuO oHDMlCBh9DDr9BOJzxD xmPnIgSEQ5MtX8VDK6w MNsaY5odDowtfwalP2l Oyc+N05fuH4cQKY0RSV 4csseFWTddgTuTU68TD 74U6OzKeazzRTgoIX+P QXuhkCcaTliWZ5oNiCz r0xnx1BvXTpiY4XdBOK kEXkvTvh8ANMtALN3lB W9jT9wPAAtYXlyr1L5b TC9J0BiaqZjjw9xz2dh WCXmTAatL37qpVOqr0L 3KXBtoXD3YLGssUokTo HedB31Ala+PGNvbGdyb 4VaKfvea0rsk1frxHx3 IjMwJSIgdmFsaWduPSJ 7w4MgNu15G42pPKpaGO RoPSIxNSUiIHZhbGlnb i0ghK9sOb4+PGNvbCB3 pBB9sK6pKZDrRtG8VYi mD168RwUtqRKvCetib1 kds2iopCy0BbUjKDYhh pIudBurJOE1o6LfXt69 P38kHDzrEFJlQGKjYWN aZTDoeBafxm8abL2yHr 8+DH1uk4qycc72rG10s HI+CVAfLZJ7kNcsALtr JQEviR4sKFsqJmO6VXP oFzRdeH78iTBpRGepGl 2qpLugqMcbFE2vBTLjk xpbl116ReZmm5fyEYKc iBCeRZafJGV4Y64ct8G 8ZQTwLNRgXTS3cPD5jC 1hbGlnbjogbGVmdDsgd fLjiCsaVWvrJSqrB036 IHRvcDsnPlBhdGllbnQ oHoAfTPl2L9FmKus0HH GlkHkhNU0ybYTqMLhiO y6dgWqtmNbzGL4tMMTy vprzx145AgFfg6naYJI mvIBfUPixPPT5W30mo8 K8QXSqHZAaWFR7eVL1j J5saItpbsllrZHplGoc swXsaIrjZOjeINmsB66 6IHRvcDsnPkJpcnRoIE OhePC8AR70NH61lFVvf 3A2aHN6L8UbASEhfyft phwwwUV0ARQtSBYheR6 1Di5ybWysDt2fJBMwFJ X3MQSmnPGyR7DkjQ2cM iVqOWScPKMwB4TadGYi NAsmZ938XRflQzQ4HNW tcxArR4DfGRVaiDhrXe L2d7I7Ig3BJ6Y1FE60N Y79sFGur1P4qFO8I6Bi QCUpgblcrozpkPS6ANX aJKVptE10Vt5kzDbyVz 9hREFqWFX9FJAfhHFnP 7ZfhI8tTcTeCMNhMGJy M6XewSBnLUifO032NDm fOrJ6WHJtjzSdM7FnFG ElmEpwUiB8r1X5Vt5LM Yc3AD15ZC58wVNjj0D9 sGR3W6FrFHWpgnhvgzg pvZR3BUIyDNBluV70Nr 8tlUqvPn7mXMPbUGJ7Z AWhwGLtZ0XnuV1xGeTo DYTwKTXfV2JlbYUyRAn nQ273LMroZqM2XSQlcp NcI4FmRHMyzLqwPvQ7n 1F7Uh1AYUVaES27QMA2 zPV6MH07RS80M6OgPqy vdGFibGU+PHRhYmxlIH dpZHRoPScxMDAlJyBzd EhhOK8mJz5kTINgFQIf kGxtbPWgPmQbn0dcQCV jTRhzGU0crFqgK8LwkN E3KEZwc2q9Ho86P35lS 3JvdXA+CYIitXS9rLW3 jL6mMbOrXlU4AAcgS31 7PtBiaMHbYklrd4uud5 mduSf3IcD8LWOscrBhw EmjWKZ5y7ImKi63K21g IHdpZHRoPSIxNSUiIHZ gkCpawn9exQ8qZs5+PG IirWA9gAJ3yY3oShZoH zD9PKfkQ741KpNabKEl Wlzyt4iux3gcgSy1IrA iKRStpiPmhYgzQMG5l2 MvHl34P4ImhTwow0IrV yx7ue52cKBrf6Q0iUX5 H1XyUUDhhxvpcEGxwCr zLU2fJLVwtufwKXUiqZ 3nZZUtC0y7DsEuBrR7M TotZ2LaygU7IBNpdQKs HGtaZZK4C06mc5Y8KCS rSNMsZUS9nGF4gA0tiT lnbjogbGVmdDsgdmVyd NywKVqrRAvkD942EZFq pYhtDGGibI6gMJZqqXG rfIywAY1fXJArdrmoEv QUHW9DQgpeTGXQBUVKS vWSVX0NDN87MD48mWKh l6E6xBW3B8GbPWNqkbs gdzhznGJ7CLMsYVRhnH 03jNYmSSsbUe1dt1L4u 058OJNfAKThsD86Fh5a wFmjHVGejXSSfU0ytoc um1rqafszDbIhFIDyCI o7CGw9SOZjpXofShNkJ AP4TxG3RSE8hYQtjG7z sHcpbukpzG6yMxg+MTE vMTMvMjAwMzwvdGQ+PH AoWOK2eHahIMtjTGPrx T9sCWNuE3f6UsQrKgU3 KDulV2TuXTLqnasoIl7 8wI0cQvBxXaU8MFahA1 KzapG0SDTxlLDhATynB TH5G82kb4U9SEZsUVQe LUH2jEH4wB2boPctwnd gbGVmdDsgdmVydGljYW phWXpsG152YNLioFbuK aG8JItdTAUyHH90CI32 lGKxn0N6jZK7X4SpBXW rkgwqxeobfWF6XTPmIA GblV77mSNgQTnpMa2ec 4P6a260HWXhPSMtnP18 Fk5mmEzaITMlzJUYpI9 kqumfj2ilnocyXhXdBH IxYXe1CBo4RFZofGkmR rUlHXB6WbE8MLA7zFGw tG0uxFzuvpwtpP4yEte +PbBZEPmDNG89QK00mA Tcv7O1bUK9G5UbYTMay aooznkbdRO2MNEcDZHl qB85aJJkAMeoUm4ih1R 7b356IBEqIHEyzH27Bj 3mpJvwCCCyiGSXiQ0ih ytzw5ojnuzuStGnFRRq SEt5HRr0RLIiiElxPeR fWWK4WbP5QJI5dUOhiE 5qqExdzdvblF6oUlz+R E5undoachB1BC04CJ72 X3MfLqaslTJyxBL+PHR hYmxlIHdpZHRoPScxMD GkBxXsoYmuHD0eIt7aW GVyLWNvbGxhcHNlOiBj n8uyZWRtUUyoLB9fwTg jX3LavDF5XJJtu1g5Ny 37Z69jG8LbzEM+PGNvb LF6oGR5sI4pWiDyLsE2 PTahN174EuHbyCCyYro qu4gec8yswUn5AiPlLN CffoYreKsgFFE2p4HqW b29J41hGLonMQIyVNOk NXMbCNJrqHntmb5owC8 wIi8+GQOcuDI5oIF6oR 0tQsTzShK0VZesP931O rRpdPFxFfwjI13fY2Ue dXA+GDInBbz4KEYydEx oNU1woONiVRdjNv5pWP Y1GnBoIgSsUYwlZ0BlT NAgctoudrwexUR6POEg BDNodB35Zn2yjHriEg5 pLYYkOHA9NFMzzKDiF0 CuwR3zPzCaRCIvRRGwG 9CuiRGnEQtiJ551YMof AxM8WPAlcmCsE8NyWJN nrWtqKnB4g6U1Hx0FtF upyZAcBQ8jXhViWRn7M 3NsGig7SAEwdWhdXT2l uNDzWXyeAd7bdFqkcFv wBK8kLCTrwfuua857Oc Exh0qjJIYwzWCnAIwnI QO0X98id4A7XZTpMBQz DBE7sZV9vM5wzYydyrw gbGVmdDsgdmVydGljYW rnGFrkB627DJShqJpuN sEIByd1W9WjZft2TLEe lUhkLL6ucIBaJAqwUd1 tjBlnlWjlUO9gYEKetx uvk737ArFhs6leJSDbm XEvZAirHNI9N59xn0B6 LOMtGBAgULO9kFW7gI1 hbGlnbjogbGVmdDsgdm OyePkqEJbiBQpkU494L EHjeZadTa1BQww6S1Os Chy0JGKdiBhjIJ9dqYS xLRgiWk2syIjmrYcwIF 0zSYHllrywo146KqYzx 7paTGGxxUMcNLxsMHP4 G40kw6I9QAYhHIReMHR 2xCS4cP2jvMhbhqmiqV VmdDsgdmVydGljYWwtY TkiF252ARCboZquJuXl eWVyOjwvdGQ+ZF18ft2 5Z0VnCkyjWhl3LYAhMF B1nOC4nD8fDOWtXPnck 9G5cQK7D8UdwkGdbw9t b2x (more content not included)... Normal [facility] ED Clinical Summaryon 2021 ED Clinical Summary [facility] - Emergency Department [address] [place], [place] [id number] ED Clinical Summary PERSON INFORMATION Name: JOSELIN VALENZUELA Age: 16 Years Sex: FEMALE : 2005 MRN: Acct#: Visit Reason: Chest pain; CHEST PAIN, HEADACHE Arrival: 07/19/2022 20:06:01 Discharge: 07/19/2022 22:07:00 LOS: 000 02:01 Check In: 07/19/2022 20:06:01 Checkout:07/19/2022 22:07:00 Address: [address] [place] [address] PCP: MISHEL DIMAS PROVIDER INFORMATION Provider Role [...] Allergies; No known allergies PHYSICIAN DOCUMENTATION Patient: JOSELIN VALENZUELA Age: 16 years Sex: FEMALE : 2005 Associated Diagnoses: Elevated blood pressure reading; Acute chest pain; Abdominal pain, epigastric Author: aTlat Hardy MD Basic Information Time seen: Date [...] stated that she did had gone to [place] today, and noted throughout the day, intermittently. [...] vaginal bleeding. Musculoskeletal symptoms: No Muscle pain, Hematologic/Lymphat ic symptoms: Negative except as documented in HPI. Health Status Allergies: Allergic Reactions (Selected) No known allergies No Known Medication Allergies. Medications: (Selected) Documented Medications Documented [facility] [place]: 0 Refill(s) ibuprofen: 0 Refill(s). Past [...] Problem lis (more content not included)... Normal [facility] ED Patient Summaryon 022 ED Patient Summary [facility] - Emergency Department [address] [place] [address] PATIENT DISCHARGE INSTRUCTIONS Patient Information Name: JOSELIN VALENZUELA Age: 16 Years Date of : 2005 Reason For Visit: Chest pain; CHEST PAIN, HEADACHE Arrival Time: 07/19/2022 20:06:01 Primary Care Physician: MISHEL DIMAS Attending Physician: Ahmet Moreno DO Comment: Visit Diagnosis: Diagnoses This Visit Abdominal pain, epigastric (R10.13) Acute chest pain (R07.9) Chest pain (44428313) Elevated blood pressure reading (R03.0) The Pharmacy at [facility] is open Friday through Friday from 9A [...] alcohol and/or drug addiction problems; contact the [facility] 21/04 Crisis Hotline -Text 0QZLI yf [phone]. If you received any narcotics, sedation, or [...] legal documents With: Address: When: MISHEL DIMAS [address] [place] [address] Business (1) Within 3 to 5 days [...] and treatment you received today in the [facility] Emergency Department were for an urgent problem and are not intended as complete care. It is important for you to follow up with a doctor, nurse practitioner, or physician?s malt specifications control assistant for ongoing care. If your symptoms [...] so we can reach you if necessary. [facility] Emergency Department has provided you with a complete list of medications post discharge. Please inform your associate teacher/provider of your visit and for further instruction on these medications. Any specific questions regarding your chronic medications and dosages should be discussed with your primary care physician(s) and/or pharmacist. New Medications [id number], [address], [place] [id number], [phone] famotidine (famotidine 20 mg oral tablet) 1 [...] 70 bpm Per (more content not included)... [facility] Progress Note - Nurseon 06-30 Progress Note - Nurse Pt provided with both written and verbal discharge instructions as well as follow up information. Pt verbalizes understanding and denies further questions or needs. Pt changes into clothing independently and ambulates upon discharge without issues. [Electronically Signed on: 07/19/2022 22:06 EDT] __ Martha Almaguer RN [Verified on: 07/19/2022 22:06 EDT] __ Martha Almaguer RN [facility] .Auto Diff 1on 07-19-2022 Auto Storey % 8 % Normal 12 [facility] Comment on above: Performed By: #### 1 [id number], 0243224372, 54538028, 3673759837, 6022509, 3383203, 8412300339, 8393905178 #### [facility] (DEFAULT) [address] [place] [address] Baso Abs# 0.0 x10 Normal 0.0-0.2 [facility] Comment on above: Performed By: #### 1 [id number], 5924838166, 94272042, 0801689913, 4074795, 9969345, 2316214723, 8618281360 #### [facility] (DEFAULT) [address] [place] [address]307 Basophils/100 WBC (Bld) 0.2 % Normal 0.2-2.0 [facility] Comment on above: Performed By: #### 1 498523241, 5799528378, 10947087, 4909718268, 1209232, 0803103, 0610097097, 1184031930 #### [facility] (DEFAULT) [address] [place] [address] 54354 Eos Abs# 0.1 x10 Normal 0.0-0.4 [facility] Comment on above: Performed By: #### 1 936372058, 7536028381, 32980273, 7771280109, 1816293, 7731640, 8798854907, 0503555925 #### [facility] (DEFAULT) [address] [place] [address] 14741 Eosinophils/100 WBC (Bld) 1.8 % Normal 0.9-4.0 [facility] Comment on above: Performed By: #### 1 [id number], 8304936256, 02214131, 9939324215, 8924910, 1533197, 9587289524, 0067704985 #### [facility] (DEFAULT) [address] [place] [address] 22861 Lymph Abs# 2.5 x10 Normal 1.3-2.9 [facility] Comment on above: Performed By: #### 1 713011376, 8801273270, 16613873, 7949019639, 7023410, 4651535, 0389406981, 3400886414 #### [facility] (DEFAULT) [address] [place] [address] 59578 Lymphocytes/100 WBC (Bld) 44 % Normal 14-48 [facility] Comment on above: Performed By: #### 1 637801739, 2171102780, 01604060, 8310547310, 4622154, 1249602, 3861647323, 7178143968 #### [facility] (DEFAULT) [address] [place] [address] Storey Abs# 0.4 x10 Normal 0.0-0.8 [facility] Comment on above: Performed By: #### 1 253867418, 8070015478, 03290613, 1426515354, 3912512, 3635466, 7902587877, 4087106980 #### [facility] (DEFAULT) [address] [place] [address] Neut Abs# 2.6 x10 Normal 1.5-9.2 [facility] Comment on above: Performed By: #### 1 327217785, 3364231020, 36344688, 8108745959, 9368539, 8138566, 4712224578, 3330715636 #### [facility] (DEFAULT) [address] [place] [address] Neutrophils/100 WBC (Bld) 47 % Normal 44-88 [facility] Comment on above: Performed By: #### 1 396986477, 7498607821, 34338940, 7812376736, 3582564, 2123151, 1071306261, 7718316155 #### [facility] (DEFAULT) [address] [place] [address] CBC w/ Auto Diffon Erythrocyte distribution width (RBC) [Ratio] 14.6 % Normal 11.5-15.0 [facility] Comment on above: Performed By: #### 1 [id number], 8391412584, 84187045, 5349188948, 5019251, 5806920, 1529592293, 6462363735 #### [facility] (DEFAULT) [address] [place] [address] Hematocrit (Bld) [Volume fraction] 40.2 % Normal 33.7-40.4 [facility] Comment on above: Performed By: #### 1 798072117, 7191765183, 34753836, 1890003461, 6626204, 7357695, 1359148393, 2452636439 #### [facility] (DEFAULT) [address] [place] [address] Hemoglobin (Bld) [Mass/Vol] 13.0 g/dL Normal 11.3-15.9 [facility] Comment on above: Performed By: #### 1 495096406, 3406233954, 34110616, 5691388796, 1409949, 4349160, 2892787775, 0350389647 #### [facility] (DEFAULT) [address] [place] [address] Instr WBC 5.7 x10 Invalid Interpretation Code [facility] Comment on above: Performed By: #### 1 907420249, 5877779626, 27044459, 6999744670, 8412767, 6219652, 6171206024, 8159887379 #### [facility] (DEFAULT) [address] [place] [address] Man Diff? Auto Normal [facility] Comment on above: Performed By: #### 1 198706644, 6637843796, 27264363, 3572646092, 1373792, 9189382, 9891733899, 9592927989 #### [facility] (DEFAULT) [address] [place] [address] MCH (RBC) [Entitic mass] 27 pg Normal 24-34 [facility] Comment on above: Performed By: #### 1 206152232, 0366575003, 67235105, 4035777787, 3990176, 4358015, 3531316848, 7145541153 #### [facility] (DEFAULT) [address] [place] [address] 67838 MCHC (RBC) [Mass/Vol] 32 g/dL Normal 26-37 [facility] Comment on above: Performed By: #### 1 025271504, 9983198991, 40852285, 9906225546, 6351953, 1039505, 8197902250, 3805910053 #### [facility] (DEFAULT) [address] [place] [address] 25777 MCV (RBC) [Entitic vol] 84 fL Normal 81-100 [facility] Comment on above: Performed By: #### 1 979746637, 5083996467, 32137854, 9705797714, 7237695, 5618473, 4268273630, 6985216113 #### [facility] (DEFAULT) [address] [place] [address] 84804 Platelet 282 x10 Normal 138-427 [facility] Comment on above: Performed By: #### 1 202259744, 0065692315, 83908591, 3811009291, 4323291, 3679546, 1828585161, 1170506643 #### [facility] (DEFAULT) [address] [place] [address] 27261 Platelet mean volume (Bld) [Entitic vol] 10.7 fL High 6.3-10.2 [facility] Comment on above: Performed By: #### 1 559010288, 4372009220, 64159340, 4054523464, 9553680, 3580752, 4583256086, 7038493816 #### [facility] (DEFAULT) [address] [place] [address] 11581 RBC 4.78 x10 Normal 3.70-5.30 [facility] Comment on above: Performed By: #### 1 387964351, 7037483897, 16483701, 1893976216, 6167772, 7195669, 5334842497, 1432462397 #### [facility] (DEFAULT) [address] [place] [address] 88034 WBC 5.7 x10 Normal 3.5-10.5 [facility] Comment on above: Performed By: #### 1 267543841, 1770298774, 43587810, 9151900151, 5444074, 1234527, 6178314753, 9170075364 #### [facility] (DEFAULT) [address] [place] [address] 09544 CMP Standardon 07-19-2022 eGFR Non AA >60 Invalid Interpretation Code [facility] Comment on above: Performed By: #### 1 629581752, 5471897090, 07528489, 0234763658, 9706196, 9629630, 0258215023, 0955186616 #### [facility] (DEFAULT) [address] [place] [address] eGFR AA >60 Invalid Interpretation Code [facility] Comment on above: Result Comment: Optical Mechanic Apprentice nicki Kidney disease could be indicated at eGFRs of less than 60 ml/min/1.73m2. Kidney Failure is indicated at less than 15 ml/min/1.73m2 Performed By: #### 1 714571367, 2175392027, 00632574, 5253809339, 5187197, 0413208, 6247727002, 9662130704 #### [facility] (DEFAULT) [address] [place] [address] Albumin [Mass/Vol] 4.5 g/dL Normal 3.5-5.0 [facility] Comment on above: Performed By: #### 1 240809569, 8053073356, 08930678, 0126966903, 1383655, 3058435, 2506943534, 1459373480 #### [facility] (DEFAULT) [address] [place] [address] Albumin/Globulin [Mass ratio] 1.3 {ratio} Low 1.4-2.6 [facility] Comment on above: Performed By: #### 1 318173665, 2764113721, 69801548, 0841528876, 7815479, 1893011, 4048136028, 5218531876 #### [facility] (DEFAULT) [address] [place] [address] 33536 Alk Phos 63 IU/L Normal 32-91 [facility] Comment on above: Performed By: #### 1 691698244, 7642392574, 91989365, 1866365935, 6807436, 7891205, 6160653385, 6639710024 #### [facility] (DEFAULT) [address] [place] [address] ALT [Catalytic activity/Vol] 15.0 U/L Normal 8.0-29.0 [facility] Comment on above: Performed By: #### 1 604459634, 3067255084, 53806076, 5897654570, 2258869, 7644763, 2090430859, 9861815844 #### [facility] (DEFAULT) [address] [place] [address] 48398 Anion gap [Moles/Vol] 12.0 mmol/L Normal 5.0-19.0 [facility] Comment on above: Performed By: #### 1 895844607, 6637190874, 33546135, 2989744537, 8389446, 9853653, 4720199252, 3981222011 #### [facility] (DEFAULT) [address] [place] [address] 54044 AST [Catalytic activity/Vol] 23 U/L Normal 14-37 [facility] Comment on above: Performed By: #### 1 685134441, 0756172015, 35261857, 5020307340, 9114425, 0601405, 1164368954, 1608904243 #### [facility] (DEFAULT) [address] [place] [address] 26037 Bili Total 0.7 mg/dL Normal 0.0-2.0 [facility] Comment on above: Performed By: #### 1 399886853, 5044621168, 88659928, 3634112783, 9375458, 3579825, 4902902305, 0109393839 #### [facility] (DEFAULT) [address] [place] [address] 43547 Calcium [Mass/Vol] 9.2 mg/dL Normal 8.9-10.3 [facility] Comment on above: Performed By: #### 1 943321195, 4557694009, 31345149, 1196668286, 5446054, 0390918, 9314449856, 9514493605 #### [facility] (DEFAULT) [address] [place] [address] 52309 Chloride [Moles/Vol] 106 mmol/L Normal 101-111 [facility] Comment on above: Performed By: #### 1 929696660, 1488032649, 84142210, 7097355364, 7074797, 7921988, 4534337065, 0596088731 #### [facility] (DEFAULT) [address] [place] [address] CO2 [Moles/Vol] 27 mmol/L Normal 21-32 [facility] Comment on above: Performed By: #### 1 000193317, 9726523671, 92594067, 6053397262, 1918909, 9318265, 3339567529, 9923866456 #### [facility] (DEFAULT) [address] [place] [address] Creatinine [Mass/Vol] 0.72 mg/dL Normal 0.30-1.00 [facility] Comment on above: Performed By: #### 1 813443187, 4805619458, 92429232, 3973578988, 9377912, 4214529, 2715660795, 1266557467 #### [facility] (DEFAULT) [address] [place] [address] Globulin (S) [Mass/Vol] 3.5 g/dL Normal 1.5-4.3 [facility] Comment on above: Performed By: #### 1 755525700, 0228240687, 16491600, 1135087632, 8982559, 7450166, 2340961587, 5471830237 #### [facility] (DEFAULT) [address] [place] [address] Glucose [Mass/Vol] 101.0 mg/dL Normal 56.0-144.0 [facility] Comment on above: Performed By: #### 1 893016191, 9668085625, 87278350, 5173181796, 0369872, 5822826, 7656776368, 1130144663 #### [facility] (DEFAULT) [address] [place] [address] Osmolality 281 mOsm/L Invalid Interpretation Code [facility] Comment on above: Performed By: #### 1 957320167, 5971427617, 50555861, 3596946413, 6761544, 0754401, 0803261234, 1997008058 #### [facility] (DEFAULT) [address] [place] [address] 18853 Potassium [Moles/Vol] 3.8 mmol/L Normal 3.6-5.1 [facility] Comment on above: Performed By: #### 1 719364707, 9117951604, 14814859, 5333672258, 5824047, 1659633, 7210433288, 6811201168 #### [facility] (DEFAULT) [address] [place] [address] 49913 Protein [Mass/Vol] 8.0 g/dL Normal 6.1-8.0 [facility] Comment on above: Performed By: #### 1 349526929, 0838669028, 71341992, 7926369838, 7829263, 7357645, 4447472020, 2673306728 #### [facility] (DEFAULT) [address] [place] [address] 02398 Sodium [Moles/Vol] 141.0 mmol/L Normal 136.0-144.0 [facility] Comment on above: Performed By: #### 1 665408908, 4561688835, 26383870, 5485733144, 3580933, 5365516, 5576332485, 7653218122 #### [facility] (DEFAULT) [address] [place] [address] 96186 Urea nitrogen [Mass/Vol] 11 mg/dL Normal 8-26 [facility] Comment on above: Performed By: #### 1 307501594, 1128169459, 11302553, 0886020815, 3945435, 7691838, 4755924616, 5427431637 #### [facility] (DEFAULT) [address] [place] [address] 53156 Urea nitrogen/Creatinine [Mass ratio] 15.0 mg/mg Normal 4.6-16.2 [facility] Comment on above: Performed By: #### 1 542480248, 4615239301, 22566885, 1521722186, 9040070, 8421295, 4193229916, 5036712188 #### [facility] (DEFAULT) [address] [place] [address] ED Note - Physicianon 2021 ED Note - Physician Patient: JOSELIN VALENZUELA Age: 16 years Sex: FEMALE : 2005 [...] stated that she did had gone to [place] today, and noted throughout the day, intermittently. [...] vaginal bleeding. Musculoskeletal symptoms: No Muscle pain, Hematologic/Lymphat ic symptoms: Negative except as documented in HPI. Health Status Allergies: Allergic Reactions (Selected) No known allergies No Known Medication Allergies. Medications: (Selected) Documented Medications Documented [facility] [place]: 0 Refill(s) ibuprofen: 0 Refill(s). Past [...] normal conjunctiv (more content not included)... Normal [facility] Extra Redon 07-19-2022 Tube Collected Yes Invalid Interpretation Code [facility] Comment on above: Performed By: #### 1 [id number], 8694803993, 89283211, 5043702667, 2698009, 5977816, 3319090625, 2469665566 #### [facility] (DEFAULT) [address] [place] [address] 28469 Lipaseon 07-19-2022 Lipase Level 35.0 IU/L Normal 22.0-51.0 [facility] Comment on above: Performed By: #### 1 646316800, 4548111195, 15911149, 3552360788, 6903198, 7064212, 0979146274, 9305280694 #### [facility] (DEFAULT) [address] [place] [address] 30975 Test Urine 1on U Preg Negative Normal [facility] Comment on above: Performed By: #### 2 878877499, 241622214 #### [facility] (DEFAULT) [address] [place] [address] 67984 U Preg Internal Control Pass [facility] Comment on above: Performed By: #### 2 954617464, 227058385 #### [facility] (DEFAULT) [address] [place] [address] 65609 TnI HSon 07-19-2022 Troponin I High Sensitivity 3 pg/mL Normal <=15 [facility] Comment on above: Result Comment: Male Baseline Delta 1Hr (Note pg/mL=ng/L) <20pg/mL 50-60% >20pg/mL 20% Female Baseline Delta 1Hr <15pg/mL 50-60% >15pg/mL 20% Other Baseline Delta 1Hr <18ng/mL 50-60% >18ng/mL 20% ([employer] Guidelines April 2018) Performed By: #### 1 [id number], 9506642432, 66899276, 1625055992, 6223959, 1402044, 5700221229, 3098557247 #### [facility] (DEFAULT) [address] [place] [address] UA w Micro, if Ind Standardo n 07-19-2022 Breakpoint UA Normal [facility] Comment on above: Performed By: #### 1 800630048, 2053306861, 43540075, 9390677498, 4712075, 6794984, 0446413456, 9710578028 #### [facility] (DEFAULT) [address] [place] [address] 00528 Color (U) Yellow Normal [facility] Comment on above: Performed By: #### 1 442850270, 2179930581, 94903618, 8231072598, 4444265, 5836061, 4094814142, 6554255262 #### [facility] (DEFAULT) [address] [place] [address] 58337 Glucose (U) [Mass/Vol] Negative Normal [facility] Comment on above: Performed By: #### 1 286704210, 3885754990, 33432598, 6384892950, 6580728, 3286550, 9691680860, 7083356550 #### [facility] (DEFAULT) [address] [place] [address] 13426 Ketones Ql (U) Negative Normal [facility] Comment on above: Performed By: #### 1 387767509, 5702935237, 87691448, 7233025707, 5654773, 4027926, 8675279437, 6043842249 #### [facility] (DEFAULT) [address] [place] [address] 97767 Micro? Not Indicated Invalid Interpretation Code [facility] Comment on above: Result Comment: Resu lt created by rule GL_MAGR_ADD_UA_MICRO Result created by rule GL_MAGR_ADD_UA_MICRO Performed By: #### 1 228611957, 1129341748, 64378073, 1657431138, 9483401, 8780075, 3647982254, 9836728903 #### [facility] (DEFAULT) [address] [place] [address] UA Bilirubin Negative Normal [facility] Comment on above: Performed By: #### 1 878538511, 9009141073, 74430675, 9532341036, 9967543, 0611157, 1221773522, 2119139049 #### [facility] (DEFAULT) [address] [place] [address] UA Blood Negative Normal NEGATIVE [facility] Comment on above: Performed By: #### 1 206855569, 0343446142, 42082306, 5722275336, 8156841, 3219987, 3394372675, 6421519758 #### [facility] (DEFAULT) [address] [place] [address] UA Clarity CLEAR Normal CLEAR [facility] Comment on above: Performed By: #### 1 577324006, 6498651161, 37316697, 0144491404, 2335481, 9379328, 1690371758, 0295364069 #### [facility] (DEFAULT) [address] [place] [address] UA Leuk Est Negative Normal NEGATIVE [facility] Comment on above: Performed By: #### 1 392623204, 4829599839, 07584883, 7900756147, 8368375, 9363085, 2304954784, 0845107454 #### [facility] (DEFAULT) [address] [place] [address] UA Nitrite Negative Normal NEGATIVE [facility] Comment on above: Performed By: #### 1 809633468, 4167835663, 14386201, 0941581355, 9218957, 1801739, 7363494901, 7069619749 #### [facility] (DEFAULT) [address] [place] [address] UA pH 7.0 Normal 5-8 [facility] Comment on above: Performed By: #### 1 497113178, 7699325119, 48498470, 2588824499, 1601899, 8391522, 8768901950, 6715548085 #### [facility] (DEFAULT) [address] [place] [address] UA Protein Negative Normal NEGATIVE [facility] Comment on above: Performed By: #### 1 196357553, 6099394596, 16180923, 1817955504, 9772840, 8915369, 5602065255, 7390408173 #### [facility] (DEFAULT) [address] [place] [address] UA Spec Grav 1.020 Normal 1.001-1.035 [facility] Comment on above: Performed By: #### 1 566063807, 0252341967, 20925096, 7379050711, 3085015, 0710019, 6108898839, 4041836710 #### [facility] (DEFAULT) [address] [place] [address] UA Urobilinogen 1.0 mg/dL Normal 0.2-1.0 [facility] Comment on above: Performed By: #### 1 620622565, 8870245987, 83226082, 1957745880, 7386927, 6814795, 9256456504, 7841264814 #### [facility] (DEFAULT) [address] [place] [address] Urine Source Clean Catch Normal [facility] Comment on above: Performed By: #### 1 [id number], [id number], [id number] #### [facility] (DEFAULT) [address] [place] [address] Vital Signs Date Time Vital Sign Value Performing Clinician Facility 07-08-2024 13:37-0400 Body mass index (BMI) [Ratio] 29.96 kg/m2 Luba Rosario Phone: [facility] 07-08-2024 13:37-0400 Body weight 74.3 kg Luba Elizabeth SID Work Phone: [facility] 07-08-2024 13:37-0400 Diastolic blood pressure 74 mm[Hg] Luba Elizabeth PA Work Phone: [facility] 07-08-2024 13:37-0400 Systolic blood pressure 110 mm[Hg] Luba Elizabeth SID Work Phone: [facility] 04-14-2024 12:31-0400 Body height 157.48 cm [facility] 04-14-2024 12:31-0400 Body mass index (BMI) [Ratio] 29.5 kg/m2 [facility] 04-14-2024 12:31-0400 Body temperature 98.2 [degF] [facility] 04-14-2024 12:31-0400 Body weight 73.25 kg [facility] 04-14-2024 12:31-0400 Diastolic blood pressure 80 mm[Hg] [facility] 04-14-2024 12:31-0400 Heart rate 102 /min [facility] 04-14-2024 12:31-0400 Respiratory rate 16 /min [facility] 04-14-2024 12:31-0400 SaO2% (BldA) [Mass fraction] 99 % [facility] 04-14-2024 12:31-0400 Systolic blood pressure 125 mm[Hg] [facility] 04-09-2024 11:23-0400 Diastolic blood pressure 87 mm[Hg] [facility] 04-09-2024 11:23-0400 Heart rate 74 /min [facility] 04-09-2024 11:23-0400 Respiratory rate 16 /min [facility] 04-09-2024 11:23-0400 SaO2% (BldA) [Mass fraction] 97 % [facility] 04-09-2024 11:23-0400 Systolic blood pressure 120 mm[Hg] [facility] 12-16-2023 13:15-0400 Body mass index (BMI) [Ratio] 30.12 kg/m2 [facility] [address] [facility] 12-16-2023 13:15-0400 Body weight 74.71 kg [facility] [address] [facility] 12-16-2023 13:15-0400 Diastolic blood pressure 82 mm[Hg] [facility] [address] [facility] 12-16-2023 13:15-0400 Systolic blood pressure 122 mm[Hg] [facility] [address] [facility] 11-19-2023 10:31-0500 Body mass index (BMI) [Ratio] 30.91 kg/m2 [facility] Risk [facility] 11-19-2023 10:31-0500 Body temperature 98.1 [degF] [facility] Risk [facility] 11-19-2023 10:31-0500 Body weight 76.66 kg [facility] Risk [facility] 11-19-2023 10:31-0500 Diastolic blood pressure 76 mm[Hg] [facility] Risk [facility] 11-19-2023 10:31-0500 Systolic blood pressure 132 mm[Hg] [facility] 04-07-2023 14:30-0400 Body weight 69.85 kg Mishel Dimas Other [facility] 04-07-2023 14:30-0400 Diastolic blood pressure 83 mm[Hg] Mishel Dimas Other [facility] 04-07-2023 14:30-0400 Respiratory rate 18 /min Mishle Dimas Other [facility] Other 04-07-2023 14:30-0400 SaO2% (BldA) [Mass fraction] 99 % Mishel Dimas Other [facility] Other 04-07-2023 14:30-0400 Systolic blood pressure 135 mm[Hg] Mishel Dimas Other [facility] 07-31-2021 15:30-0400 Body height 160.02 cm Mishel Dimas Other [facility] Other 07-31-2021 15:30-0400 Body mass index (BMI) [Ratio] 22.67 kg/m2 Mishel Dimas Other [facility] Other 07-31-2021 15:30-0400 Body temperature 98.2 [degF] Mishel Dimas Other [facility] Other 07-31-2021 15:30-0400 Body weight 58.06 kg Mishel Dimas Other [facility] Other 07-31-2021 15:30-0400 Diastolic blood pressure 101 mm[Hg] Mishel Dimas Other [facility] Other 07-31-2021 15:30-0400 Respiratory rate 18 /min Mishel Dimas Other [facility] Other 07-31-2021 15:30-0400 SaO2% (BldA) [Mass fraction] 100 % Mishel Dimas Other [facility] Other 07-31-2021 15:30-0400 Systolic blood pressure 135 mm[Hg] Mishel Dimas Other [facility] Other Encounters Encounter Date Encounter Type Care Provider Facility Start: 07-08-2024 End: 07-08-2024 Patient encounter procedure Luba LAU Work Phone: [facility] Comment on above: Nexplanon removal; Encounter for routine checking of intrauterine contraceptive device (IUD) Start: 07-08-2024 End: 07-08-2024 ambulatory LUBA ELIZABETH Not Available Start: 06-24-2024 End: 06-24-2024 ambulatory JENNIFER HERRERA Not Available Start: 06-22-2024 End: 06-22-2024 ambulatory NENITA GIOVANY Not Available Start: 06-14-2024 End: 06-14-2024 ambulatory NENITA GIOVANY Not Available Start: 04-14-2024 End: 04-14-2024 ambulatory [facility] Work Phone: Start: 04-14-2024 End: 04-14-2024 Patient encounter procedure [facility] Work Phone: Start: 04-09-2024 End: 04-09-2024 ambulatory [facility] Work Phone: Start: 04-09-2024 End: 04-09-2024 Encounter for general adult medical examination without abnormal findings [facility] Start: 04-09-2024 End: 04-09-2024 Patient encounter procedure [facility] Work Phone: Start: 02-03-2024 End: 02-03-2024 ambulatory MARCK CARLOS A Not Available Start: 01-14-2024 End: 01-14-2024 ambulatory LUBA ELIZABETH Not Available Start: 01-02-2024 End: 01-02-2024 ambulatory Shivani Ghosh Facility:[facility] Start: 01-02-2024 End: 01-02-2024 ambulatory DO Mishel Dimas Work Phone: [facility] Work Phone: Start: 01-02-2024 End: 01-02-2024 Patient encounter procedure DO Mishel Dimas Work Phone: [facility]- Visit Work Phone: Start: 12-16-2023 End: 12-16-2023 ambulatory MISHEL DIMAS [facility] Start: 12-16-2023 End: 12-16-2023 care visit [facility] Resident 2yr [facility] Comment on above: Encounter for postpa rtum visit (Primary Dx) Start: 12-06-2023 Encounter Mihsel hongruthi DO Work Phone: [address] [facility] Start: 12-04-2023 Encounter Mishel Torres rayelieserruthi DO Work Phone: [address] [facility] Start: 12-01-2023 Encounter Mishel Torres anelieserruthi DO Work Phone: [address] [facility] Start: 11-28-2023 Encounter Mishel Torres aneliesercki DO Work Phone: [address] [facility] Start: 11-25-2023 Encounter Mishel hongruthi DO Work Phone: [address] [facility] Start: 11-21-2023 Encounter Mishel hongcki DO Work Phone: [address] [facility] Start: 11-19-2023 End: 11-19-2023 ambulatory MISHEL Mi JUDIE [facility] Start: 11-19-2023 End: 11-19-2023 Patient encounter procedure [facility] High Risk [facility] Comment on above: Surgical followup (P rimary Dx) Start: 11-18-2023 Encounter Mishel Torres gelycki DO Work Phone: [address] [facility] Start: 11-17-2023 Encounter Mishel Torres aneliesercki DO Work Phone: [address] [facility] Start: 11-15-2023 Encounter Mishel Torres aneliesercki DO Work Phone: [address] [facility] Start: 11-13-2023 End: 11-13-2023 Evaluation and management of inpatient MISHELSHARLENE HUTTONCÉSAR [facility] Start: 11-06-2023 End: 11-07-2023 Evaluation and management of inpatient [facility] Start: 10-30-2023 End: 10-31-2023 Evaluation and management of inpatient [facility] Start: 10-23-2023 End: 10-24-2023 Evaluation and management of inpatient JAY JAY ARTHUR [facility] Start: 10-16-2023 End: 10-17-2023 Evaluation and management of inpatient [facility] Start: 10-09-2023 End: 10-10-2023 Evaluation and management of inpatient [facility] Start: 10-02-2023 End: 10-03-2023 Evaluation and management of inpatient [facility] Start: 09-24-2023 End: 09-25-2023 Evaluation and management of inpatient [facility] Start: 09-15-2023 End: 09-16-2023 Evaluation and management of inpatient [facility] Start: 09-08-2023 End: 09-09-2023 Evaluation and management of inpatient [facility] Start: 09-04-2023 End: 09-05-2023 Evaluation and management of inpatient [facility] Start: 08-28-2023 End: 11-13-2023 Evaluation and management of inpatient DEIRDRE WHARTON [facility] Start: 08-18-2023 End: 08-18-2023 ambulatory LUBA ELIZABEHT Not Available Start: 04-07-2023 End: 04-07-2023 ambulatory Mishel Dimas Other [facility] Other Start: 04-07-2023 Encounter for genera l adult medical examination without abnormal findings Mishel Dimas [facility] Start: 04-07-2023 Periodic preventive med est patient 18-39 yrs Mishel Dimas [facility] Start: 03-26-2023 End: 03-26-2023 ambulatory Mishel Dimas Facility:[facility] Start: 03-26-2023 End: 03-26-2023 ambulatory DO Mishel Dimas Work Phone: [facility] Work Phone: Start: 03-26-2023 End: 03-26-2023 Patient encounter procedure DO Mishel Dimas Work Phone: [facility] Work Phone: Start: 03-19-2023 End: 03-19-2023 ambulatory Mishel Dimas Other [facility] Other Start: 03-19-2023 Encounter for other specified special examinations Mishel Diams [facility] Start: 03-19-2023 Telephone encounter Mishel Loo i [facility] Start: 08-06-2022 End: 08-06-2022 ambulatory Mishel Dimas Other [facility] Other Start: 08-06-2022 Telephone encounter Mishel Loo i [facility] Start: 07-29-2022 End: 07-29-2022 ambulatory Mishel Dimas Other [facility] Other Start: 07-29-2022 Telephone encounter Mishel Loo i [facility] Start: 07-22-2022 End: 07-22-2022 ambulatory Mishel Dimas Other [facility] Other Start: 07-22-2022 Telephone encounter Mishel Loo i [facility] Start: 07-19-2022 End: 07-20-2022 Emergency department patient visit Ahmet Moreno Facility:[facility] Start: 07-19-2022 End: 07-20-2022 ambulatory MISHEL DIMAS Facility:[facility] Start: 11-05-2021 End: 11-05-2021 ambulatory Mishel Dimas Other [employer] [facility] [email or web address] Other Start: 11-05-2021 Telephone encounter Mishel Loo i [facility] Start: 07-31-2021 End: 07-31-2021 ambulatory Mishel Dimas Other [facility] [email or web address] Other Start: 07-31-2021 Office outpatient vi sit 25 minutes Mishel Dimas [facility] Procedures Date Procedure Procedure Detail Performing Clinician Start: 07-08-2024 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 Start: 06-24-2025 End: 06-24-2025 Patient encounter procedure 06/24/2025 10:30 AM EDT Office Visit [facility] [address] [facility] [place] [address] [place] [address] Jennifer Herrera PA [address] [facility] [address] [place] [address] [facility] Start: 12-15-2024 Adult BMI Screening Adult BMI Screening [facility] Start: 12-15-2024 Depression Screening Depression Screening [facility] Start: 12-15-2024 Tobacco Screening Tobacco Screening [facility] Start: 11-19-2024 Adult BMI Screening Adult BMI Screening [facility] Start: 11-19-2024 Depression Screening Depression Screening [facility] Start: 11-19-2024 Tobacco Screening Tobacco Screening [facility] Start: 10-04-2024 Tobacco Screening Tobacco Screening [facility] Start: 09-15-2024 Adult BMI Screening Adult BMI Screening [facility] Start: 08-29-2024 Screening for Chlamydia trachomatis Chlamydia Screening [facility] Start: 05-30-2024 Influenza vaccination Influenza Vaccine (#1) [facility] Start: 12-16-2023 End: 12-16-2023 ambulatory 12/16/2023 1:30 PM EDT Visit [facility] [address] [place] [address] [facility] Start: 11-19-2023 End: 11-19-2023 Patient encounter procedure 11/19/2023 10:45 AM EST Office Visit [facility] [address] [place] [address] [facility] Start: 05-30-2023 COVID-19 Vaccine ( season) COVID-19 Vaccine ( season) [facility] Start: 2021 Adult BMI Follow Up Plan Adult BMI Follow Up Plan [facility] Start: 2015 Depression Screening Depression Screening [facility] Immunizations Immunization Date Immunization Notes Care Provider Fa cili 09-23-2023 tetanus toxoid, redu stanislaw diphtheria toxoid, and acellular pertussis vaccine, adsorbed Mishel Dimas DO Work Phone: [facility] 09-22-2023 influenza, injectabl e, quadrivalent, preservative free Mishel Dimas DO Work Phone: [facility] 09-22-2023 influenza virus vaccine, unspecified formulation Luba LAU Work Phone: [facility] 05-07-2021 meningococcal polysaccharide (groups A, C, Y and W-135) diphtheria toxoid conjugate vaccine (MCV4P) Mishel Dimas Other [facility] 03-28-2020 tetanus toxoid, redu stanislaw diphtheria toxoid, and acellular pertussis vaccine, adsorbed DO Mishel Dimas Work Phone: [facility] 04-08-2016 poliovirus vaccine, inactivated Mishel Dimas Other [employer] [facility] [email or web address] Other 04-08-2016 human papilloma viru s vaccine, quadrivalent Mishel Dimas Other [facility] 04-08-2016 meningococcal polysaccharide (groups A, C, Y and W-135) diphtheria toxoid conjugate vaccine (MCV4P) Mishel Dimas Other [facility] 04-08-2016 measles, mumps and rubella virus vaccine Mishel Dimas Other [facility] 04-08-2016 poliovirus vaccine, unspecified formulation DO Mishel Dimas Work Phone: [facility] 04-08-2016 varicella virus vaccine Rajesh zuhair Dimas Other [facility] Payers Date Payer Category Payer Self-pay [id number] 2022 Unknown HUM [id number] 1 2017 [facility] HUM [id number] 2014 [facility] CBKAN [id number] [id number] 2014 Unknown [id number]. [id number] 2003 Unknown [id number] 2.16.84 0.1.423154.3.579.2.718 2003 Unknown [id number] 2.16.84 0.1.197439.3.579.2.718 2003 Unknown [id number] 2.16.8 40.1.726024.3.579.2.1285 2003 Unknown [id number] 2.16.8 40.1.440216.3.579.2.1285 2003 Unknown [id number] 2.16.8 40.1.631189.3.579.2.1285 2003 Unknown [id number] 2.16.8 40.1.608304.3.579.2.1285 2003 Unknown [id number] 2.16.8 40.1.620346.3.579.2.1285 2003 Unknown [id number] 2.16.8 40.1.871239.3.579.2.1285 2003 Unknown [id number] 2.16.8 40.1.188606.3.579.2.1285 2003 Unknown [id number] 2.16.8 40.1.267399.3.579.2.1285 2003 Unknown [id number] 2.16.8 40.1.799143.3.579.2.1285 2003 Unknown [id number] 2.16.8 40.1.109994.3.579.2.1285 2003 Unknown [id number] 2.16.8 40.1.118319.3.579.2.1285 2003 Unknown [id number] 2.16.8 40.1.433583.3.579.2.1285 2003 Unknown [id number] 2.16.8 40.1.564923.3.579.2.1285 2003 Unknown [id number] 2.16.8 40.1.725112.3.579.2.1285 2003 Unknown [id number] 2.16.8 40.1.143044.3.579.2.1286 2003 Unknown [id number] 2.16.84 0.1.424145.3.579.2.1259 2003 Unknown [id number] 2.16.84 0.1.979129.3.579.2.1259 2003 Unknown [id number] 2.16.84 0.1.956683.3.579.2.1259 2003 Unknown [id number] 2.16.84 0.1.029533.3.579.2.1259 2003 Unknown [id number] 2.16.84 0.1.795731.3.579.2.1259 2003 Unknown [id number] 2.16.84 0.1.408863.3.579.2.1259 2003 Unknown [id number] 2.16.840 .1.256576.3.579.2.1259 Unknown [id number] 2.16.8 40.1.756018.3.579.2.531 Unknown [id number] 2.16.8 40.1.264842.3.579.2.531 Social History Date Type Detail Facility Start: 10-04-2023 End: 01-28-2024 Sex Assigned At [facility] Start: 11-02-2021 End: 06-04-2023 Tobacco smoking status NHIS Never smoked tobacco (finding) [facility] Start: 2003 Sex Assigned At Female [facility] Start: 06-04-2023 End: 08-28-2023 Tobacco use and exposure Smokeless tobacco non-user [facility] Start: 11-12-2023 End: 12-16-2023 Alcohol intake Current non-drinker of alcohol (finding) [facility] Start: 10-04-2023 End: 01-28-2024 History of Social function [facility] Childcare Unknown [facility] Start: 08-28-2023 Gender identity Identifies as female gender (finding) [facility] Start: 08-28-2023 Sexual orientation Heterosexual (finding) [facility] The thought of harmi ng myself has occurred to me Never [facility] Start: 07-08-2024 Alcoholic beverage intake Lifetime non-drinker (finding) [facility] Do you belong to any clubs or organizations such as anabaptism groups, unions, fraternal or athletic groups, or school groups? No [facility] Are you now , , , , never or living with a partner? Living with partner [facility] Do you feel stress - tense, restless, nervous, or anxious, or unable to sleep at night because your mind is troubled all the time - these days [OSQ] Only a little [facility] (I/We) worried wheth er (my/our) food would run out before (I/we) got money to buy more. Never true [facility] Start: 06-04-2023 Alcohol Comment Caffeine: occasional chocolate [facility] Start: 2003 Sex assigned at Not on file [facility] Clinical Notes 07-30-2017 to 07-08-2024 Margie Santacruz LPN - 07/08/2024 1:30 PM Chayito Edwards MD - 12/16/2023 1:30 PM Melanie Oseguera RN - 12/16/2023 1:30 PM Bo Barger DO - 12/16/2023 1:30 PM EDT Note Date & Type Note Facility 07-08-2024 History of Presen t illness Narrative Associated Order(s): Insertion/Removal of Contraceptive Capsule Post-Procedure Diagnose(s): Nexplanon removal Reason for Appointment: Patient ID: Joselin Valenzuela is a 18 y.o. female who presents for Contraception (Removal of Nexplanon and String check) Patient presents today for a Nexplanon Removal appointment. MEDICATIONS Current Outpatient Medications Medication Instructions etonogestrel-eluting 68 mg contraceptive implant 1 each, Implant, Once FeroSul 325 (65 Fe) MG tablet 1 tablet, Oral, Every 48 hours ALLERGIES No Known Allergies SURGICAL HISTORY Past Surgical History: Procedure Laterality Date ADENOIDECTOMY 2018 SECTION, LOW TRANSVERSE 11/11/2023 OTHER SURGICAL HISTORY 05/11/2020 nexplanon insertion VAGINAL DELIVERY 2019 , @ 35 weeks 10/05 REVIEW OF SYSTEMS Review of Systems: Review of Systems All other systems reviewed and are negative. OBJECTIVE Objective: Physical Exam Constitutional: Appearance: Normal appearance. She is well-developed. Cardiovascular: Rate and Rhythm: Normal rate and regular rhythm. Pulmonary: Effort: Pulmonary effort is normal. Breath sounds: Normal breath sounds. Abdominal: General: Bowel sounds are normal. There is no distension. Palpations: Abdomen is soft. Tenderness: There is no abdominal tenderness. There is no guarding or rebound. Musculoskeletal: General: No swelling. Normal range of motion. Right lower leg: No edema. Left lower leg: No edema. Neurological: Mental Status: She is alert and oriented to person, place, and time. Skin: General: Skin is warm and dry. Psychiatric: Mood and Affect: Mood normal. Behavior: Behavior normal. Vitals and nursing note reviewed. Exam conducted with a tile and mottle supervisor present. Vitals: Estimated body mass index is 29.96 kg/m as calculated from the following: Height as of 06/24/24: 5' 2 . Weight as of this encounter: 163 lb 12.8 oz. BP: 110/74 Patient's last menstrual period was 05/23/2024. ASSESSMENT & PLAN Assessment/Plan Encounter Diagnosis: ICD-10-CM 1. Nexplanon removal Z30.46 2. Encounter for routine checking of intrauterine contraceptive device (IUD) Z30.431 Insertion/Removal of Contraceptive Capsule Date/Time: 07/08/2024 1:46 PM Performed by: SID Hernandez Authorized by: SID Hernandez Consent: Consent obtained: Verbal Consent given by: Patient Procedural risks discussed: Bleeding and infection Patient questions answered: yes Patient agrees, verbalizes understanding, and wants to proceed: yes Educational handouts given: yes Instructions and paperwork completed: yes Pre-procedure: Pre-procedure timeout performed: yes Prepped with: povidone-iodine Local anesthetic: Lidocaine without epinephrine The site was cleaned and prepped in a sterile fashion: yes Procedure: Procedure: Removal Left/right: Right Nexplanon Removal: Patient presents today for removal of Nexplanon. Written consent for procedure was obtained and patient was placed in supine position with right arm flexed at elbow. Skin was cleansed with alcohol/Betadine and 2cc of Lidocaine was injected underneath palpated Nexplanon at distal end. After allowing for sufficient time for numbing agent to take effect, the skin overlying the end of Nexplanon was incised with an 11inch blade scalpel. A 7.5in hemostat was inserted in the incision site to grab device and Nexplanon was released from tissue. Nexplanon implant was removed in its entirety and visualized by myself and patient. The skin was cleansed with alcohol and the incision was covered with gauze. Post-procedure care was reviewed and patient will continue with proposed plan of care. Patient was advised to call office with any questions or concerns. IUD String Check: Patient is doing well but has some complaints of bleeding and cramping following IUD placement. Patient presents today for IUD string check. Strings were visualized and are noted to be intact. Follow Up: Patient is to return to the office for annual exam unless needed otherwise. Follow Up: Patient is to return to the office as needed for any routine appointments. Documented by Margie Santacruz LPN on behalf of: SID Hernandez documented in this encounter [facility] 12-16-2023 History of Presen t illness Narrative [facility] VISIT Joselin Valenzuela is a 18 y.o. presenting for 5 week postop visit from Primary low transverse section due to vasa previa and low lying placenta She has not resumed sexual intercourse, has possibly resumed menses as she is noting increased dark red vaginal spotting, had lochia, is pumping. Contraceptive method is: nexplanon. Denies sadness, lack of energy, loss of interest. Reports intermittent diarrhea with eating certain foods. Patient reports new onset headache 1 week ago that improves with motrin. She denies regular caffeine use, visual floaters or auras. She denies fevers, chills, nausea, vomiting, dizziness, constipation. Mood: stable; EPDS 1. Feels well-supported at home. complicated by: 1) Dunham intrauterine at 34w0d weeks gestation. 2) Vasa Previa 3) Low lying placenta 4) Small VSD 5) Hx of PTD CURRENT MEDICATIONS: Current Outpatient Medications: acetaminophen (TYLENOL EXTRA STRENGTH) 500 mg tablet, Take 2 tablets (1,000 mg total) by mouth every 8 (eight) hours., Disp: 30 tablet, Rfl: 0 docusate sodium (COLACE) 100 mg capsule, Take 1 capsule (100 mg total) by mouth in the morning and 1 capsule (100 mg total) before bedtime., Disp: 60 capsule, Rfl: 0 ibuprofen (MOTRIN) 800 mg tablet, Take 1 tablet (800 mg total) by mouth every 8 (eight) hours., Disp: 30 tablet, Rfl: 0 [id number] [id number] mg combo pack,tablet & cap,, Take 1 tablet by mouth., Disp: , Rfl: VITALS: Wt Readings from Last 3 Encounters: 11/19/23 76.7 kg (169 lb) 09/15/23 73.6 kg (162 lb 4.1 oz) 08/28/23 75.3 kg (166 lb 0.1 oz) PHYSICAL EXAM: Constitutional: She is oriented to person, place, and time and well-developed, well-nourished, and in no distress. Psychiatric: Mood, memory, affect and judgment normal. Neurological: Pleasant and oriented. HENT: Neck normal in appearance. Moist mucus membranes. Anicteric sclera. Normocephalic. Cardiovascular: No JVD. No lower extremity edema. Pulmonary/Chest: Effort normal. No respiratory distress. Skin: Skin is warm and dry. No rash noted. No pallor. Abdomen: soft, non-tender, and non-distended. Incision healing well Pelvic: External genitalia: normal general appearance Urinary system: urethral meatus normal Vaginal: normal mucosa without prolapse or lesions Pelvic floor tenderness: no Cervix: normal appearance Adnexa: normal bimanual exam Uterus: normal size, contour, position, consistency, mobility, non-tender Anus: Normally situated without hemorrhoids. ASSESSMENT/PLAN: 18 y.o. presenting for 5 week post-op from Primary low transverse section d/t vasa previa and low lying placenta 1. Routine care - Patient meeting milestones 2. PPBC: nexplanon 3. Headache - improves/resolves with motrin. Headache not likely due to pre-eclampsia. Blood pressures within normal limits. Patient encouraged to follow up with pcp 4. RTO as needed. Patient has established care with enforcement safety officer close to home. Patient lives an hour away and would prefer to follow up with her enforcement safety officer Julieth Edwards MD High School Coach Resident, PGY-2 Resident Attestation: The patient was seen and discussed with preceptor Dr Barger. Discussion/Comments: none Seen today for PP visit following C/S 11/11 States incision is healing well Vaginal bleeding has been light, dark red now Pt states pumping, baby d/c from nicu a week ago Nexplanon for BC C/o of increase in KATZ EPDS:1 Attending Attestation: I saw the patient. I participated and was physically present during the critical/irvin portions of the service. I was directly involved in the management and treatment plan of the patient. I reviewed the resident's note. Additional Notes/Findings: , doing well. Incision healing well. Return to hometown for ENVIRONMENTAL LABORATORY TECHNICIAN care. Evelyne Barger DO documented in this encounter [facility] 12-06-2023 Miscellaneous Notes Formattin g of this note might be different from the original. This note was copied from a baby's chart. Met with mother at infant's bedside. Stated infant may be discharged soon. Milk supply remains stable with pumping. Mother would like to work on latching when home. medicine outpatient phone number given. Encouraged to make appointment for help with getting baby back to breast. Back pack cooler given for transport of breast milk home. [facility] - [phone] documented in this encounter [facility] 12-06-2023 Obstetrics Note This note was copied from a baby's chart. Met with mother at infant's bedside. Stated infant may be discharged soon. Milk supply remains stable with pumping. Mother would like to work on latching when home. medicine outpatient phone number given. Encouraged to make appointment for help with getting baby back to breast. Back pack cooler given for transport of breast milk home. [facility] [phone] [facility] 12-04-2023 Miscellaneous Notes Formattin g of this note might be different from the original. This note was copied from a baby's chart. Met with mom at infant's bedside. States that pumping continues to go well, she has a stable supply and has felt less engorged. She has been able to pump pain free. No questions or concerns at this time, encouraged to reach out for any other assistance. [facility]-04-2023 Obstetrics Note This note was copied from a baby's chart. Met with mom at 's bedside. States that pumping continues to go well, she has a stable supply and has felt less engorged. She has been able to pump pain free. No questions or concerns at this time, encouraged to reach out for any other assistance. [employer] [facility] 12-01-2023 Miscellaneous Notes Formattin g of this note is different from the original. This note was copied from a baby's chart. Met with mother at infants bedside. States pumping is going well and supply is stable. Mother has switched flanges and feels more comfortable. Mother has some feelings of engorgement when it is time to pump after long stretches between pumpings. Engorgement Causes of Engorgement Engorgement happens when milk isn't fully removed from your breast. It can happen any time, but it's most likely to happen: As your milk transitions from colostrum to mature milk. If there are sudden changes in how often you nurse, such as skipping a few feedings or pumping sessions. The symptoms of breast engorgement will be different for each person. However, breasts that are engorged may feel: hard or tight tender or warm to touch heavy or full lumpy swollen The swelling may be contained to one breast, or it may occur in both. Swelling can also extend up the breast and into the nearby armpit. The veins running under the breast s skin may become more noticeable. This is a result of the increased blood flow, as well as the tightness of the skin over the veins. Treatments for breast engorgement include: Empty your breasts as much as possible. Nurse or pump at least every two to three hours throughout the day/night in the first few weeks after the baby is born. Check in with a living specialist if swollen, engorged breasts are still a problem for you after one week. Before nursing or pumping, apply heat to your breasts. A warm shower, a warm washcloth directly on your breasts, or resting your breasts in a bowl of warm water can help to get the breastmilk flowing. Before nursing or pumping, massage your breasts. Massaging your breasts before nursing or pumping can help with your milk flow. You can massage your breasts either during or after applying heat. To massage your breasts, first lay flat on your back on a comfortable surface like your bed. Lying on your back will allow you to massage all areas of the breasts, particularly the underside of the breasts. Starting with one breast, use your fingers to gently make small circles over your breast, moving from your chest wall toward your nipple, and then around your breast. After nursing or pumping, put something cool on your breasts. You may use cool compresses or cold packs such as ice packs, bags of frozen vegetables or frozen wet towels on your breasts. Place these very cold items in a pillow case to prevent frostbite to your skin. Place them over your breasts for 15-20 minutes, lying flat on your back. These cold items will help to decrease the swelling in your breasts. Lie down on your back as much as possible. Lying down helps to elevate the breasts, for the same reason you would put your legs up if they are swollen. Keeping your breasts elevated will help to move the extra fluid back into your body. Take an anti-inflammatory medication. Talk with your care provider about taking a medicine like ibuprofen to help you if your engorgement is painful. Use a technique called Reverse Pressure Softening . Reverse Pressure Softening is a special type of breast massage that makes it easier for your baby to latch on when your breast is hard and full. Reverse Pressure Softening involves using your fingers to push on the breast around the areola (the dark part around the nipple) in order to get rid of the swelling that is around the nipple. The goal is to make the area around your areola softer and more compressible so your baby can latch on deeply to your breast when nursing. Here are the steps to do Reverse Pressure Softenin. Lie back in a chair or on a large pillow in bed, making sure you can see what you are doing to the areola region of your breasts. Firmly, but gently use your finger tips to press steadily on the areola, right where it meets your nipple. 2. Press inward toward your chest wall for a full minute or longer. If you need to, you may continue to press for 2 to 5 minutes as needed. 3. Do not press so hard that it hurts. If it is painful, press softly, but for a longer time. Wear a well-fitting, supportive bra that is not too tight. An underwire bra or a small, tight bra can be very uncomfortable, and make the swelling and engorgement of your breasts worse. Find a comfortable bra that is stretchy but still supports your breasts, with no underwire. Reinforced pumping guidelines and importance of pumping how eats. Encouraged pumping every 2-3 hours for 15-20 minutes at suction level that is comfortable. Mom will only produce the amount of breastmilk that her baby demands. It is true that hormones drive the production of very early breastmilk, called colostrum. However, in order to keep producing breastmilk, your baby needs to keep sucking from the breast. The overall level of milk production varies based on the babys amount of sucking and how much milk is actually removed. Questions answered, encouragement given. documented in this encounter [facility] 12-01-2023 Obstetrics Note This note was copied from a baby's chart. Met with mother at infants bedside. States pumping is going well and supply is stable. Mother has switched flanges and feels more comfortable. Mother has some feelings of engorgement when it is time to pump after long stretches between pumpings. Engorgement Causes of Engorgement Engorgement happens when milk isn't fully removed from your breast. It can happen any time, but it's most likely to happen: As your milk transitions from colostrum to mature milk. If there are sudden changes in how often you nurse, such as skipping a few feedings or pumping sessions. The symptoms of breast engorgement will be different for each person. However, breasts that are engorged may feel: hard or tight tender or warm to touch heavy or full lumpy swollen The swelling may be contained to one breast, or it may occur in both. Swelling can also extend up the breast and into the nearby armpit. The veins running under the breast s skin may become more noticeable. This is a result of the increased blood flow, as well as the tightness of the skin over the veins. Treatments for breast engorgement include: Empty your breasts as much as possible. Nurse or pump at least every two to three hours throughout the day/night in the first few weeks after the baby is born. Check in with a living specialist if swollen, engorged breasts are still a problem for you after one week. Before nursing or pumping, apply heat to your breasts. A warm shower, a warm washcloth directly on your breasts, or resting your breasts in a bowl of warm water can help to get the breastmilk flowing. Before nursing or pumping, massage your breasts. Massaging your breasts before nursing or pumping can help with your milk flow. You can massage your breasts either during or after applying heat. To massage your breasts, first lay flat on your back on a comfortable surface like your bed. Lying on your back will allow you to massage all areas of the breasts, particularly the underside of the breasts. Starting with one breast, use your fingers to gently make small circles over your breast, moving from your chest wall toward your nipple, and then around your breast. After nursing or pumping, put something cool on your breasts. You may use cool compresses or cold packs such as ice packs, bags of frozen vegetables or frozen wet towels on your breasts. Place these very cold items in a pillow case to prevent frostbite to your skin. Place them over your breasts for 15-20 minutes, lying flat on your back. These cold items will help to decrease the swelling in your breasts. Lie down on your back as much as possible. Lying down helps to elevate the breasts, for the same reason you would put your legs up if they are swollen. Keeping your breasts elevated will help to move the extra fluid back into your body. Take an anti-inflammatory medication. Talk with your care provider about taking a medicine like ibuprofen to help you if your engorgement is painful. Use a technique called Reverse Pressure Softening . Reverse Pressure Softening is a special type of breast massage that makes it easier for your baby to latch on when your breast is hard and full. Reverse Pressure Softening involves using your fingers to push on the breast around the areola (the dark part around the nipple) in order to get rid of the swelling that is around the nipple. The goal is to make the area around your areola softer and more compressible so your baby can latch on deeply to your breast when nursing. Here are the steps to do Reverse Pressure Softenin. Lie back in a chair or on a large pillow in bed, making sure you can see what you are doing to the areola region of your breasts. Firmly, but gently use your finger tips to press steadily on the areola, right where it meets your nipple. 2. Press inward toward your chest wall for a full minute or longer. If you need to, you may continue to press for 2 to 5 minutes as needed. 3. Do not press so hard that it hurts. If it is painful, press softly, but for a longer time. Wear a well-fitting, supportive bra that is not too tight. An underwire bra or a small, tight bra can be very uncomfortable, and make the swelling and engorgement of your breasts worse. Find a comfortable bra that is stretchy but still supports your breasts, with no underwire. Reinforced pumping guidelines and importance of pumping how eats. Encouraged pumping every 2-3 hours for 15-20 minutes at suction level that is comfortable. Mom will only produce the amount of breastmilk that her baby demands. It is true that hormones drive the production of very early breastmilk, called colostrum. However, in order to keep producing breastmilk, your baby needs to keep sucking from the breast. The overall level of milk production varies based on the babys amount of sucking and how much milk is actually removed. Questions answered, encouragement given. [facility] 11-28-2023 Miscellaneous Notes Formattin g of this note might be different from the original. This note was copied from a baby's chart. Met with mother at infants bedside. States her supply is stable and has no pain with pumping. Mother plans to exclusively pump and feed. Encouraged her to call out for a LC with any questions or concerns. Support given. documented in this encounter [facility] 11-28-2023 Obstetrics Note This note was copied from a baby's chart. Met with mother at infants bedside. States her supply is stable and has no pain with pumping. Mother plans to exclusively pump and feed. Encouraged her to call out for a LC with any questions or concerns. Support given. [facility] 11-25-2023 Miscellaneous Notes Formattin g of this note might be different from the original. This note was copied from a baby's chart. Met with mother at 's bedside. Reports that pumping has been much better after getting assistance with flange fit. Is pumping every 2-3 hours and getting 3-5oz each time. Denies pain with pumping. No questions/concerns at this time. documented in this encounter [facility] 11-25-2023 Obstetrics Note This note was copied from a baby's chart. Met with mother at 's bedside. Reports that pumping has been much better after getting assistance with flange fit. Is pumping every 2-3 hours and getting 3-5oz each time. Denies pain with pumping. No questions/concerns at this time. [facility] 11-21-2023 Miscellaneous Notes Formattin g of this note might be different from the original. This note was copied from a baby's chart. Met with mother at infant's bedside. States that pumping is going much better. She has been able to get smaller flange sizes which are much more comfortable for her and as such, has seen an increase in her milk supply. She has been getting 100mls + every three hours. Mom does say that sometimes she doesn't feel like she empties completely, we discussed the use of heat and massage to help completely empty ducts while pumping. No further question, encouraged to call out for any other assistance. documented in this encounter [facility] 11-21-2023 Obstetrics Note This note was copied from a baby's chart. Met with mother at 's bedside. States that pumping is going much better. She has been able to get smaller flange sizes which are much more comfortable for her and as such, has seen an increase in her milk supply. She has been getting 100mls + every three hours. Mom does say that sometimes she doesn't feel like she empties completely, we discussed the use of heat and massage to help completely empty ducts while pumping. No further question, encouraged to call out for any other assistance. [facility] 11-19-2023 History of Presen t illness Narrative Images from the original note were not included. CC: Visit (1wks) Joselin Valenzuela is a 18 y.o. who presents for 1 week exam. Pt underwent PLTCS @ 34w d/t vasa previa on 11/11/23. was complicated by vasa previa, low lying placenta, small VSD, and hx of PTD (G1: 34wk, bleeding). Pt was admitted @23w, given ANCS & rescue course, and then remained inpatient until delivery. In the Interim, pt reports no concerns. Baby still in NICU. Denies headache, changes in vision, chest pain, shortness of breath. All questions answered. Lochia: yes Breast feeding: yes - pumping, baby in nicu Bottle feeding: yes Sexual activity since delivery: no Symptoms of depression: no Thoughts of harming self or others no Patient got Nexplanon. OB History 2 Para 2 Term 0 2 AB 0 Living 2 SAB 0 IAB 0 Ectopic 0 Multiple 0 Live Births 2 SURGICAL HX Past Surgical History: Procedure Laterality Date ADENOIDECTOMY ADENOIDECTOMY N/A 07/21/2017 Performed by Gustavo Murcia MD at [facility] N/A 11/11/2023 [facility]/21[facility]2017 Performed by Gustavo Murcia MD at [facility] RADIO FREQUENCY TURBINATE NASAL Bilateral 07/21/2017 Performed by Gustavo Murcia MD at [facility] MEDICAL HX History reviewed. No pertinent past medical history. ALLERGIES No Known Allergies FAMILY HX History reviewed. No pertinent family history. MEDS Current Outpatient Medications Medication Sig Dispense Refill acetaminophen (TYLENOL EXTRA STRENGTH) 500 mg tablet Take 2 tablets (1,000 mg total) by mouth every 8 (eight) hours. 30 tablet 0 docusate sodium (COLACE) 100 mg capsule Take 1 capsule (100 mg total) by mouth in the morning and 1 capsule (100 mg total) before bedtime. 60 capsule 0 ibuprofen (MOTRIN) 800 mg tablet Take 1 tablet (800 mg total) by mouth every 8 (eight) hours. 30 tablet 0 [id number] 29-1-400 mg combo pack,tablet & cap,DR Take 1 tablet by mouth. No current facility-administered medications for this visit. Physical Exam BP 132/76 Temp 36.7 C (98.1 F) (Oral) Wt 76.7 kg (169 lb) LMP 03/18/2023 Yes Comment: states pumping BMI 30.91 kg/m EDS score: 1 Physical Exam Constitutional: Appearance: Normal appearance. Chest: Breasts: Right: Normal. Left: Normal. Comments: Normal breast exam, small scab on right nipple, healing well. Abdominal: Palpations: Abdomen is soft. Tenderness: There is no abdominal tenderness. Comments: Incision healing well: clean, dry and intact Neurological: Mental Status: She is alert and oriented to person, place, and time. Psychiatric: Mood and Affect: Mood normal. Behavior: Behavior normal. Assessment & Plan Joselin Valenzuela is a 18 y.o. who presents for 1 week exam. 1. - Pt reports doing well - Pt will remain on pelvic rest - ppBC: Nexplanon - EPDS 1 RTO for 4-6wk pp visit Pt seen and discussed with MD Peggy Sanchez MD High School Coach Resident PGY-4 11/19/23 10:49 AM Seen today for PP visit following C/S 11/11 States vaginal bleeding is light States incision is healing well states occasional pain on right side States pumping for baby in NICU, states baby is doing well States feeling lumps in breasts, unsure if its from pumping EPDS: 1 Attending Attestation: I saw the patient on 11/19/23. I participated and was physically present during the critical/irvin portions of the service. I was directly involved in the management and treatment plan of the patient. I reviewed the resident's note. Additional Notes/Findings: S/p on 11/11/23 at 34 weeks for vasa previa. Care complicated by Low lying placenta, h/o delivery, VSD. Released home on POD#2 Today reports doing well. Infant in NICU. Breast milk BCM:Rec'd Nexplanon prior to release--no complaints. PE BP 132/76 Temp 36.7 C (98.1 F) (Oral) Wt 76.7 kg (169 lb) LMP 03/18/2023 Yes Comment: states pumping BMI 30.91 kg/m Alert, NAD Abdomen soft, nondistended, appropriately tender Incision: dry without erythema or mass Nexplanon site with some ecchymoses Lab Results Component Value Date WBC 9.5 11/12/2023 HGB 10.9 (L) 11/12/2023 HCT 31.2 (L) 11/12/2023 MCV 89 11/12/2023 PLT 138 (L) 11/12/2023 Imp/Plan Post op , doing well. Return to office 4-6 weeks for exam documented in this encounter [employer] 11-18-2023 Miscellaneous Notes Formattin g of this note is different from the original. This note was copied from a baby's chart. Met with mom at infants bedside. Assessed mom while pumping d/t right nipple damage. Noted scab on right nipple. Mom was pumping with a 21.5mm flange and suggested to pump with a 19 or 20mm to help with discomfort. Encouraged to use neosporin x2 a day to help with comfort. Discussed S/S of mastitis and what to watch out for. After discussion mom was comfortable with pumping. She is using lanolin cream and hydrogel pads for comfort. All questions answered. Mastitis is an inflammation of breast tissue that sometimes involves an infection. The inflammation results in breast pain, swelling, warmth and redness. You might also have fever and chills. Mastitis can occur when an area of blocked ducts continues to be compressed, or more generally, when your breasts become overly full, causing swelling and inflammation. This does not happen as the result of one delayed feeding, but rather is part of a process. Chronic engorgement, over pumping or trying to empty the breasts, all increase the risk of mastitis. Areas of the breast where ducts are compressed may create opportunities for an imbalance in types of bacteria and result in an infection. It is important to continue emptying your breast from the affected side to help prevent the inflammation from worsening and creating an abscess. Mastitis is not contagious: there is no risk to your baby in continuing to breastfeed. Many symptoms of inflammation will go away without antibiotics when you follow these guidelines. Signs, Symptoms, and Treatment If you: Can feel a hard, sore lump in your breast Feel achy, tired, or run down Have a low-grade fever of less than 101 F (38.4?) Notice a change in the appearance of the skin on the affected breast. An area of red, pink, brown, or aviles may be noticeable depending on your skin tone and which part of the breast is inflamed. Some mothers have described a color change as triangular or wedge shaped on the skin. However, the absence of skin changes does not mean that mastitis is not present. Then: Rest as much as you can. Try resting in bed with your baby lying with you. Keep supplies such as nappies/diapers and wipes, toys, books, your phone, a container of water, and some snacks near you to minimize trips out of bed. Keep applying cold packs or ice packs as often as you like to reduce inflammation and swelling. Continue to empty your breasts at least 8-12 times each 24 hours from both breasts. If your baby refuses the sore side, you may need to express or pump some milk, just enough to soften the breast to the point it usually feels after a feeding. To relieve engorgement, consider using lymphatic drainage, which is a very gentle, light yet firm touch, with fingertips flat to the skin in the armpit area and upper chest. This helps to move the fluid away from the ducts. Ask your healthcare provider about using medications such as Ibuprofen (for example, Advil , Nurofen ) to reduce inflammation alternating with acetaminophen/paracetamol (for example,Tylenol , Panadol ) to help with pain. If you: Do not feel any better, or feel worse after the first 24-48 hours Develop a fever of 101 F (38.4?) or more Then: Call your doctor or primary healthcare provider. If antibiotic medication is prescribed, take it until the recommended course is completed, even if you feel better. Continue to rest and drink plenty of fluids. Continue to nurse, pump or hand express. If unable to pump or feed from the affected breast, use ice to reduce inflammation until you are able to breastfeed or pump. documented in this encounter Soccer Manager 11-18-2023 Obstetrics Note This note was copied from a baby's chart. Met with mom at infants bedside. Assessed mom while pumping d/t right nipple damage. Noted scab on right nipple. Mom was pumping with a 21.5mm flange and suggested to pump with a 19 or 20mm to help with discomfort. Encouraged to use neosporin x2 a day to help with comfort. Discussed S/S of mastitis and what to watch out for. After discussion mom was comfortable with pumping. She is using lanolin cream and hydrogel pads for comfort. All questions answered. Mastitis is an inflammation of breast tissue that sometimes involves an infection. The inflammation results in breast pain, swelling, warmth and redness. You might also have fever and chills. Mastitis can occur when an area of blocked ducts continues to be compressed, or more generally, when your breasts become overly full, causing swelling and inflammation. This does not happen as the result of one delayed feeding, but rather is part of a process. Chronic engorgement, over pumping or trying to empty the breasts, all increase the risk of mastitis. Areas of the breast where ducts are compressed may create opportunities for an imbalance in types of bacteria and result in an infection. It is important to continue emptying your breast from the affected side to help prevent the inflammation from worsening and creating an abscess. Mastitis is not contagious: there is no risk to your baby in continuing to breastfeed. Many symptoms of inflammation will go away without antibiotics when you follow these guidelines. Signs, Symptoms, and Treatment If you: Can feel a hard, sore lump in your breast Feel achy, tired, or run down Have a low-grade fever of less than 101 F (38.4?) Notice a change in the appearance of the skin on the affected breast. An area of red, pink, brown, or aviles may be noticeable depending on your skin tone and which part of the breast is inflamed. Some mothers have described a color change as triangular or wedge shaped on the skin. However, the absence of skin changes does not mean that mastitis is not present. Then: Rest as much as you can. Try resting in bed with your baby lying with you. Keep supplies such as nappies/diapers and wipes, toys, books, your phone, a container of water, and some snacks near you to minimize trips out of bed. Keep applying cold packs or ice packs as often as you like to reduce inflammation and swelling. Continue to empty your breasts at least 8-12 times each 24 hours from both breasts. If your baby refuses the sore side, you may need to express or pump some milk, just enough to soften the breast to the point it usually feels after a feeding. To relieve engorgement, consider using lymphatic drainage, which is a very gentle, light yet firm touch, with fingertips flat to the skin in the armpit area and upper chest. This helps to move the fluid away from the ducts. Ask your healthcare provider about using medications such as Ibuprofen (for example, Advil , Nurofen ) to reduce inflammation alternating with acetaminophen/paracetamol (for example,Tylenol , Panadol ) to help with pain. If you: Do not feel any better, or feel worse after the first 24-48 hours Develop a fever of 101 F (38.4?) or more Then: Call your doctor or primary healthcare provider. If antibiotic medication is prescribed, take it until the recommended course is completed, even if you feel better. Continue to rest and drink plenty of fluids. Continue to nurse, pump or hand express. If unable to pump or feed from the affected breast, use ice to reduce inflammation until you are able to breastfeed or pump. Soccer Manager 11-17-2023 Miscellaneous Notes Formattin g of this note might be different from the original. This note was copied from a baby's chart. Saw mom at infants bedside. Attempting to latch almost every feed for about 10mins having a couple of sucks. States no concerns with pumping or latching. Encourage mom to continue to latch and follow cues. All questions answered. documented in this encounter Soccer Manager 11-17-2023 Obstetrics Note This note was copied from a baby's chart. Saw mom at infants bedside. Attempting to latch almost every feed for about 10mins having a couple of sucks. States no concerns with pumping or latching. Encourage mom to continue to latch and follow cues. All questions answered. Soccer Manager 11-15-2023 Miscellaneous Notes Formattin g of this note might be different from the original. This note was copied from a baby's chart. RN paged LC to patient's room for request of rental pump. Contract reviewed and signed per patient and LC. Rental pump reviewed and provided. Denies any questions regarding pump. States pumping is going well and supply is increasing. Patient verbalizes she is pumping every 3 hours. No complaints of pain or discomfort. Encouraged breast attempts when cueing and have reached scores per NICU staff. Denies any questions or concerns at this time. Enc to call out at bedside for support as needed.Verbalized understanding. documented in this encounter [facility] 11-15-2023 Obstetrics Note This note was copied from a baby's chart. RN paged LC to patient's room for request of rental pump. Contract reviewed and signed per patient and LC. Rental pump reviewed and provided. Denies any questions regarding pump. States pumping is going well and supply is increasing. Patient verbalizes she is pumping every 3 hours. No complaints of pain or discomfort. Encouraged breast attempts when cueing and have reached scores per NICU staff. Denies any questions or concerns at this time. Enc to call out at bedside for support as needed.Verbalized understanding. [facility] 04-07-2023 Evaluation note Encounter Date Diagnosis Assessment [...] continues to struggle. Otherwise, continue current care. [facility] Other 06-21-2023 Evaluation note* Encounter Date Diagnosis Assessment Notes Treatment Notes Treatment Clinical Notes Feb, Wellness examination (ICD-10 - Z01.89) Feb, Screening for metabolic disorder (ICD-10 - Z13.228) Feb, Screening for cardiovascular condition (ICD-10 - Z13.6) Feb, Weight gain (ICD-10 - R63.5) [facility] Other 10-31-2022 Evaluation note* Encounter Date Diagnosis Assessment Notes Treatment Notes Treatment Clinical Notes Jun, RLQ abdominal pain (ICD-10 - R10.31) Jun, RUQ abdominal pain (ICD-10 - R10.11) [facility] Other 10-22-2022 NoteEducation Materials Elevated Blood Pressure Reading High blood [...] a heart attack, heart failure, a stroke, kidneydisease, and other problems. A blood pressure reading [...] on the floor. The cuff of the bloodpressure monitor will be placed directly against the [...] chicken without skin, beans, eggs, (more content notincluded)...[facility] 07-31-2021 Evaluation note* Encounter Date Diagnosis Assessment Notes Treatment Notes Treatment Clinical Notes Jul, Moderate single current episode of major depressive disorder (ICD-10 - F32.1) Controlled. Continue current care. Immediate medical attention for any SI/HI or other change/worsening. Call with questions/concerns . Jul, Menorrhagia with regular cycle (ICD-10 - N92.0) Suspect this may be related to her Nexplanon. I've recommended she discuss with her enforcement safety officer, Dr. Harris, whether or not this should be removed and if she should consider alternative forms of contraception. I've offered to check CBC, Iron, and TSH, but patient prefers to meet with Dr. Harris first. [facility] Other 11-01-2017 History general Narrative - Reported* Type Description Date Medical History Depression Medical History broken fingers from sports Medical History sprained right ankle - basketbal l Medical History Contusion to the Right Ankle - S occer Surgical History adenoidecomty 07/2017 Hospitalization History Child [facility] Other Evaluation noteNo InformationNort [employer] Other Evaluation noteNo assessment information available [facility] Work Phone: Evalunyvro note* Diagnosis Surgical followup- Primary [facility] Diagnosis Encounter for visit- Primary [facility] Diagnosis Onset Date Resolution Status Menorrhagia with regular cycle acute Encounter for wellness examination noneactive [facility] Work Phone: Evaluation note* Diagnosis Onset Date Resolution Status Menorrhagia with regular cycle acute Encounter for wellness examination noneactive Sore throat noneactive [facility] Work Phone: Evaluation note* Diagnosis Nexplanon removal Encounter for routine checking of intrauterine contraceptive device (IUD) documented in this encounter [facility]ructionsNot on filedocumented in this encounterProMedimi [facility] SystemInstructionsNot on filedocumented in this encounterPro[facility] SystemInstructionsNot on filedocumented in this encounterProProm[facility] Summary Purpose Family History Relationship Condition Age at Onset Recorded Date/T jim Not Specified No pertinent family history Unknown Advance Directives Advance Directive Response Recorded Date/ Time Advance Directives No October 12:00pm Latest Code Status on File Code Status Date Activated Date Inactivated Comments Full Code 08/28/2023 6:14 PM 11/13/2023 6:20 PM Code Status History Code Status Date Activated Date Inactivated Comments Full Code 02/24/2020 6:30 PM 02/25/2020 2:46 PM Chief Complaint and Reason for Visit Chief Complaint z39.1 Chief Complaint annual Reason for Visit Menorrhagia with reg ular cycle Encounter for wellness examination Chief Complaint annual Sore throat, b/l ear discomfort Reason for Visit Menorrhagia with reg ular cycle Encounter for wellness examination Sore throat Additional Source Comments REASON FOR VISIT (unrecogniz ed section and content) Reason Comments Care Reason Comments Contraception Removal of Nexplanon and String check INFORMATION SOURCE (unrecogn ized section and content) DATE CREATED AUTHOR 07/26/2022 [facility] DATE CREATED AUTHOR AUTHOR'S ORGANIZ ATION 12/17/2023 [facility] DATE CREATED AUTHOR AUTHOR'S ORGANIZ ATION 01/23/2024 [facility] DATE CREATED AUTHOR AUTHOR'S ORGANIZ ATION 07/10/2024 [facility] EPIC Care Teams (unrecognized sec tion and content) Team Status: Active Member Role Status Dates Mishel Dimas DO Primary Care Provider Active Team Status: Inactive Member Role Status Dates Mishel Dimas DO Primary Care Provider, Attendin g Provider Active Self Propelled Dredge Operator Relationship Specialty Start Date End Date Mishel Dimas DO NPI: [id number] [place] [phone] PCP - General Family Medicine 06/23/17 Self Propelled Dredge Operator Relationship Specialty Start Date End Date Mishel Dimas DO NPI: [id number] [place] [phone] PCP - General Family Medicine 06/23/17 Self Propelled Dredge Operator Relationship Specialty Start Date End Date Mishel Dimas DO NPI: [id number] [place] [phone] PCP - General Family Medicine 06/23/17 Self Propelled Dredge Operator Relationship Specialty Start Date End Date Mishel Dimas DO NPI: [id number] [place] [phone] PCP - General Family Medicine 06/23/17 Team Status: Inactive Member Role Status Dates Mishel Dimas DO Primary Care Provider Active Start: January 02, 2024 End: January 02, 2024 Shivani Ghosh MD Attending Provider Active Star t: January 02, 2024 End: January 02, 2024 Team Status: Inactive Member Role Status Dates Mishel Dimas DO Primary Care Prov ider, Attending Provider Active Start: April 09, 2024 End: April 09, 2024 Team Status: Inactive Member Role Status Dates Mishel Dimas DO Primary Care Provider Active Start: April 14, 2024 End: April 14, 2024 Livier Howe APRN Attending Provider Active Start: April 14, 2024 End: April 14, 2024 Self Propelled Dredge Operator Relationship Specialty Start Date End Date Noemi Yoo MD [address] [place] [id number] PCP - General Family Medicine 06/24/24 Jennifer Herrera PA [address] [place] [address] Physician Medical Laboratory Technologist Family Medicine 06/24/24 Goals (unrecognized section and content) Goals may [...] BE BASED ON THE PRIMARY CLINICAL RECORDS. [facility]. provides no warranty or guarantee of the accuracy or completeness of information in this document.
== END 2024-08-20 12:05 | disposition home or self-care (01) ==
LOC: LAB 12:07
PROVIDERS: Visit Provider Obstetrics & Gynecology
DX: E28.2 Polycystic ovarian syndrome (principal); N92.1 Excessive and frequent menstruation with irregular cycle
CPT/HCPCS: 36415; 82626

== ENCOUNTER 2025-03-19 10:56 | Outpatient (OUT) | payer BC, OTHER, SELFPAY ==
--- OUTSIDE RECORDS SUMMARY | 2025-03-19 11:04 | XMS_ITS | Encounter Summary ---
Author Organization [facility] Address [address] [place] [address] Care Team Providers Care Professor Of Oceanography Name Role Phone Deshawn Caal MD Primary Care Provider [phone] Noemi Yoo MD Primary Care Provider [phone] Jennifer Tucker PA Unavailable [phone] Encounter Details Date Type Department Care Team (Late st Contact Info) Description 09/08/2023 Abstract [facility] [address] [place] [address] Davin Blum, DO [address] [facility] [address] [place]ja [place], [facility] Social History Tobacco Use Types Packs/Day Years Used Date Smoking Tobacco: Never Smokeless Tobacco: Never Alcohol Use Standard Drinks/Week Comments Never 0 (1 standard drink = 0.6 oz pur e alcohol) Caffeine: occasional chocolate Comments Yes Sex and Gender Information Value Date Recorded Sex Assigned at Not on file Legal Sex Female 6:51 PM EDT Gender Identity Not on file Sexual Orientation Not on file COVID-19 Exposure Response Date Recorded In the last 10 days, have yo u been in contact with someone who was confirmed or suspected to have Coronavirus/COVID-19? No / Unsure 08/26/2023 8:35 AM EST documented as of this encounter Plan of Treatment Upcoming Encounters Date Type Department Care Team (Late Contact Info) Description 03/29/2025 1:00 PM EDT Office Visit [facility] [address] [place] [address] Luba Corral PA [address] [facility] [address] [facility] [address] [place], [place] [id number] 06/24/2025 10:30 AM EDT Office Visit [facility] [address] [facility] [address] [place] [phone] Jennifer Tucker PA [address] [place] [address] [place] [address] documented as of this encounter Visit Diagnoses Not on filedocumented in this encounter Care Teams Professor Of Oceanography Relationship Specialty Start Date End Date Deshawn Caal MD PCP - General Family Medicine 04/14/23 06/23/24 Noemi Yoo MD [address] [facility] [address] [place] [address] PCP - General Family Medicine 06/24/24 Jennifer Tucker PA [address] [facility] [address] [place] [address] Physician Electrical Transmission Engineer Family Medicine 06/24/24 documented as of this encounter
--- OUTSIDE RECORDS SUMMARY | 2025-03-19 11:04 | XMS_ITS | Encounter Summary ---
Author Organization [facility] Address [address] [facility] [place] [address] Care Team Providers Care Boat Hoist Operator Helper Name Role Phone Deshawn Caal MD Primary Care Provider [phone] Noemi Yoo MD Primary Care Provider [phone] Jennifer Tucker Unavailable [phone] Encounter Details Date Type Department Care Team (Late st Contact Info) Description 01/22/2024 Clinisync Result Encounter [facility] External Department Unsolicited Nenita Blum DO [address] [place] [address] Social History Tobacco Use Types Packs/Day Years Used Date Smoking Tobacco: Never Smokeless Tobacco: Never Alcohol Use Standard Drinks/Week Comments Never 0 (1 standard drink = 0.6 oz pur e alcohol) Caffeine: occasional chocolate Comments No Sex and Gender Information Value Date Recorded Sex Assigned at Not on file Legal Sex Female 6:51 PM EDT Gender Identity Not on file Sexual Orientation Not on file documented as of this encounter Plan of Treatment Upcoming Encounters Date Type Department Care Team (Late Contact Info) Description 03/29/2025 1:00 PM EDT Office Visit [facility] [address] [place] [address] Luba Corral PA [address] [place] [address] 06/24/2025 10:30 AM EDT Office Visit [facility]NA FRANKLIN [address] [facility] [address] [place] [phone] Jennifer Tucker PA [address] [facility] [address] [place] [address] documented as of this encounter Procedures Procedure Name Priority Date/Time Associated Diagnosis Comments US PELVIS W/ TRANSVAGINAL 01/22/2024 9:26 AM EDT documented in this encounter Results * US PELVIS W/ TRANSVAGINAL (01/22/2024 9:26 AM EDT) Anatomical Region Laterality Modality Other 01/22/2024 9:26 AM EDT Narrative 01/22/2024 9:28 [place] [address] Ultrasound Report Signed Patient: JOSELIN BLACKBURN MR#: [id number] : 2005 Acct:[id number] Age/Sex: 18 / F ADM Date: 01/22/24 Loc: [facility] Attending Dr: Nenita Blum D.O. Ordering Physician: Nenita Blum D.O. Date of Service: 01/22/24 Procedure(s): US pelvis w/ transvaginal Accession Number(s): [id number] cc: Nenita Blum D.O.; Physician,Non-Staff M.D. The [address] [address] Patient Name: JOSELIN BLACKBURN MRN: [id number] date: 2005 Sex: F Assigned Patient Location: [facility] Current Patient Location: [facility] Accession/Order Number: [id number] Exam Date: 01/22/2024 08:24 Report Date: 01/22/2024 09:26 At the request of: NENITA BLUM Procedure: US pelvis w/ transvaginal EXAM: Pelvic ultrasound HISTORY: . HEMORRHAGE . COMPARISON: None. TECHNIQUE: Transabdominal and transvaginal scanning was performed FINDINGS: Scanning of the pelvis demonstrates uterus to measure 8.9 x 4.4 x 6.5 cm. Endometrial complex measures 5 mm and appears homogeneous. Right ovary measures 3.2 x 3.2 x 1.9 cm. Color-flow is noted. Resistive indexes 0.6. Follicles are noted. Left ovary measures 3.2 x 2 x 3.3 cm. Color-flow is noted. Resistive indexes 0.5. Follicles are noted. No fluid is noted in the cul-de-sac. US/US pelvis w/ transvaginal IMPRESSION: Normal ultrasound of the pelvis. Electronically authenticated by: DEIRDRE ESPINO Date: 01/22/2024 09:26 Dictated By: Deirdre Espino M.D. Signed By: 01/22/24927 DD/ 5 TD/TT: Television Presenter: Procedure Note Radiology, Radiologist, MD - 01/22/2024 [place] [address] Ultrasound Report Signed Patient: JOSELIN BLACKBURNMR#: [id number] : 2005Acct:[id number] Age/Sex: 18 / FADM Date: 01/22/24 Loc: [facility] Attending Dr: Nenita Blum D.O. Ordering Physician: Nenita Blum D.O. Date of Service: 01/22/24 Procedure(s): US pelvis w/ transvaginal Accession Number(s): [id number] cc: Nenita Blum D.O.; Physician,Non-Staff [place] The [place] [address] Patient Name: JOSELIN BLACKBURN MRN: [id number] date: 2005 Sex: F Assigned Patient Location: [facility] Current Patient Location: [facility] Accession/Order Number: [id number] Exam Date: 01/22/2024 08:24 Report Date: 01/22/2024 09:26 At the request of: NENITA BLUM Procedure: US pelvis w/ transvaginal EXAM: Pelvic ultrasound HISTORY: . HEMORRHAGE . COMPARISON: None. TECHNIQUE: Transabdominal and transvaginal scanning was performed FINDINGS: Scanning of the pelvis demonstrates uterus to measure 8.9 x 4.4x 6.5 cm. Endometrial complex measures 5 mm and appears homogeneous. Right ovary measures 3.2 x 3.2 x 1.9 cm. Color-flow is noted. Resistive indexes 0.6. Follicles are noted. Left ovary measures 3.2 x 2 x 3.3 cm. Color-flow is noted. Resistiveindexes 0.5. Follicles are noted. No fluid is noted in the cul-de-sac. US/US pelvis w/ transvaginal IMPRESSION: Normal ultrasound of the pelvis. Electronically authenticated by: DEIRDRE ESPINO Date: 01/22/2024 09:26 Dictated By: Deirdre Espino M.D. Signed By:01/22/2428 DD/ 5 TD/TT: Television Presenter: us Nenita Viktoria DO [facility] Final Result documented in this encounter Visit Diagnoses Not on filedocumented in this encounter Care Teams Boat Hoist Operator Helper Relationship Specialty Start Date End Date Deshawn Caal MD PCP - General Family Medicine 04/14/23 06/23/24 Noemi Yoo MD [address] [facility] 110 [place] [address] PCP - General Family Medicine 06/24/24 Jennifer Tucker PA [address] [facility] [address] [place] [address] Physician Carbon Cleaner Family Medicine 06/24/24 documented as of this encounter
--- OUTSIDE RECORDS SUMMARY | 2025-03-19 11:04 | XMS_ITS | CCD ---
Author Organization [facility] Care Team Providers Care Valve Tester Name Role Phone Judie Mishel Unavailable MISHEL DIMAS A Primary Care Unavailable Ahmet Moreno Admitting Unavailable Ahmet Moreno Attending Unavailable Ahmet Moreno Attending Unavailable JUDIE, MISHEL A Primary Care Unavailable Ahmet Moreno Admitting Unavailable DO Mishel Dimas Primary Care Provider DO Mishel Dimas Attending Provider GIANNA FITZGERALD Referring Unavailable JUDIE, MISHEL A Primary Care Unavailable JUDIE, MISHEL A Referring Unavailable JUDIE, MISHEL A Primary Care Unavailable DEIRDRE ZUÑIGA Admitting Unavailable DEIRDRE ZUÑIGA Attending Unavailable JUDIE, MISHEL A Primary Care Unavailable SILVER RICHARDS Consulting Unavailable STEFANO MORALES Consulting Unavailable JEWEL CERVANTES Consulting Unavailable GIANNA FITZGERALD Referring Unavailable BRANIECKI, MISHEL A Primary Care Unavailable LENA GE Referring Unavailabl e BRANIECKI, MISHEL A Primary Care Unavailable SOUTH, HUY Referring Unavailable BRANIECKI, MISHEL A Primary Care Unavailable HUY DIA Referring Unavailable BRANIECKI, MISHEL A Primary Care Unavailable JAY JAY ARTHUR Referring Unavailable BRANIECKI, MISHEL A Primary Care Unavailable LENA GE Referring Unavailabl e BRANIECKI, MISHEL A Primary Care Unavailable SOUTH, HUY Referring Unavailable BRANIECKI, MISHEL A Primary Care Unavailable GIANNA FITZGERALD Referring Unavailable BRANIECKI, MISHEL A Primary Care Unavailable ADRIANA, CARLO Attending Unavailable CARLO WRIGHT Referring Unavailable JUDIE, MISHEL Stark Primary Care Unavailable JACEKCAMMY, MISHEL A Primary Care Unavailable JUDIE, MISHEL A Referring Unavailable JACEKCAMMY, MISHEL A Primary Care Unavailable DO Judie Mishel Primary Care Provider MD Shivani Ghosh Attending Provider Judie, Mishel Admitting Unavailable Judie, Mishel Primary Care Unavailable Judie, Mishel Attending Unavailable Shivani Ghosh Admitting Unavailable Shivani Ghosh Attending Unavailable Judie, Mishel Primary Care Unavailable Noemi Yoo MD Primary Care Provider Jennifer Mcneil Unavailable Mishel Dimas MD Primary Care Provider Judie CASANOVA, Mishel Stark Primary Care Provider JENNIFER HERRERA Attending Unavailable MARCK STRAUSS Attending Unavailable DAVIN BLUM Attending Unavailable DAVIN BLUM Attending Unavailable JENNIFER HERRERA Attending Unavailable LUBA CORRAL Attending Unavailable Allergies Allergy Classification Reported Allergen(s) Allergy Type Date of Onset Reaction(s) Facility (1 source) No Known Medication Allergies; Translations: [No Known Medication Allergies] Propensity to adverse reactions to drug (disorder) [facility] Repository Medications Current Medications Medication Drug Class(es) [...] before bedtime. 60 capsule 0 11/13/2023 Active Etonogestrel (Nexplanon) 68 mg implant (2 sources) Start: 04-09-2024 Etonogestrel (Nexplanon) 68 mg implant Active SUBDERMAL April 09, 2024 12:00am famotidine 20 mg oral tablet (3 sources) Histamine-2 Receptor Antagonist Famotidine 20 MG take 1 tablet by mouth once daily for 14 days Oral for 14 Days Active ibuprofen 800 mg oral tablet (15 [...] doses in a 24 hour period levonorgestrel 0.738089 mg/hr intrauterine system (11 sources) Progestin, Progestin-containing Intrauterine Device Start: 06-22-2024 End: [...] mg 20 tablet 0 11/13/2023 11/18/2023 Active tozhtwjr47-vpyd-xax ic-omega3 29-1-400 mg combo pack,tablet & DR juli (11 sources) dufvknyt05-goec- fo lic-omega3 29-1-400 mg combo pack,tablet & DR juli Take 1 tablet by mouth. 0 Active Completed/Discontinued Medications Medication Drug Class(es) Dates Sig (Normalized) Sig (Original) cephalexin 500 mg oral capsule (4 sources) Cephalosporin Antibacterial Start: 11-02-2021 End: 04-09-2024 take 500 mg by mouth three times daily Cephalexin Discontinued 500 MG PO Three times daily 30 November 02, 2021 1:00am April 09, 2024 7:11am etonogestrel 68 mg drug implant (20 sources) Progestin End: 01-18-2025 etonogestrel-elutin g 68 mg contraceptive implant 1 each by Implant route 1 (one) time 01/18/2025 Discontinued (Other) Nexplanon Active ferrous sulfate 325 mg oral tablet (13 sources) Start: 04-16-2024 End: 01-18-2025 take 1 tablet by mouth every other day FeroSul 325 (65 Fe) MG tablet Take 1 tablet by mouth every other day 04/16/2024 01/18/2025 Discontinued (Other) NIFEdipine 30 mg osmotic 24 hr extended release oral tablet (4 sources) Dihydropyridine Calcium Channel Finn Start: 03-25-2020 End: 03-28-2020 take 1 tablet by mouth once daily Nifedipine (Procardia Xl) 30 mg Tablet Extended Release 24hr Discontinued 30 MG PO Daily March 25, 2020 12:00am March 28, 2020 1:56pm norethindrone 0.35 mg oral tablet (3 sources) Start: 01-14-2024 End: 12-15-2024 take 1 tablet by mouth once daily, then take 1 tablet by mouth once daily norethindrone (Micronor) 0.35 MG tablet Indications: hemorrhage, unspecified type Take 1 tablet (0.35 mg) by mouth Daily Take 1 tablet by mouth daily 28 tablet 11 01/14/2024 06/14/2024 Discontinued ondansetron 4 mg disintegrating oral tablet (4 sources) Serotonin-3 Receptor Antagonist Start: 11-02-2021 End: 04-09-2024 take 4 mg by mouth three times daily Ondansetron Discontinued 4 MG PO Three times daily 9 November 02, 2021 1:00am April 09, 2024 7:11am Vit 88-Mlxx-Wictn-Dha ( + Dha) 28 mg iron- 975 mcg-200 mg Combo Pack (4 sources) Start: 02-13-2020 End: 11-02-2021 take 1 tablet by mouth once daily Vit 27-Ecrq-Vdyff-Dha ( + Dha) 28 mg iron- 975 mcg-200 mg Combo Pack Discontinued 1 TAB PO Daily February 13, 2020 12:00am November 02, 2021 7:03pm Problems Active Problems Problem Classification Problem Date Documented Date Episodic/Chronic Abdominal pain (2 sources) Right lower quadrant pain; Translations: [Right upper quadrant pain] Episodic Contraceptive and procreative management (3 sources) Subcutaneous contraceptive implant present; Translations: [Encounter for surveillance of implantable subdermal contraceptive] 07-08-2024 Episodic Deficiency and other anemia (12 sources) Iron deficiency anemia due to blood loss; Translations: [Iron deficiency anemia secondary to blood loss (chronic)] Onset: 06-24-2024 06-24-2024 Chronic Digestive congenital anomalies (11 sources) Tongue tie; Translations: [Ankyloglossia] Onset: 06-30-2017 06-30-2017 Chronic Malaise and fatigue (2 sources) Fatigue; Translations: [Other fatigue] 01-18-2025 Episodic Menstrual disorders (20 sources) Menorrhagia; Translations: [Excessive and frequent menstruation with regular cycle] Onset: 07-31-2021 Resolved: 06-24-2024 Chronic Mood disorders (19 sources) Moderate major depression, single episode; Translations: [Major depressive disorder, single episode, moderate] Onset: 07-31-2021 Resolved: 07-31-2021 Chronic Other complications of (4 sources) Obstetric investigative finding; Translations: [Supervision of other high risk pregnancies, unspecified trimester] 02-15-2020 Episodic Other endocrine disorders (13 sources) Polycystic ovary syndrome; Translations: [Polycystic ovarian syndrome] Onset: 06-24-2024 06-24-2024 Chronic Other nutritional; endocrine; and metabolic disorders (4 sources) Obesity; Translations: [Class 1 obesity without serious comorbidity with body mass index (BMI) of 31.0 to 31.9 in adult, unspecified obesity type] Onset: 01-18-2025 01-18-2025 Chronic Other nutritional; endocrine; and metabolic disorders (1 source) Abnormal weight gain Episodic Other nutritional; endocrine; and metabolic disorders (2 sources) Weight increased; Translations: [Abnormal weight gain] 01-18-2025 Episodic Other and delivery including normal (13 sources) Encounter for routine follow-up; Translations: [Intrauterine ] Onset: 02-24-2020 Resolved: 11-19-2023 02-24-2020 Episodic Other upper respiratory disease (20 sources) Allergic rhinitis; Translations: [Allergic rhinitis, unspecified] Onset: 06-23-2017 06-24-2024 Chronic Other upper respiratory infections (7 sources) Chronic sinusitis; Translations: [Chronic sinusitis, unspecified] Chronic Residual codes; unclassified (2 sources) Gestation period, 29 weeks; Translations: [29 weeks gestation of ] 02-15-2020 Episodic Residual codes; unclassified (2 sources) FH: Thyroid disorder; Translations: [Family history of other endocrine, nutritional and metabolic diseases] 01-18-2025 Episodic Syncope (4 sources) Near syncope; Translations: [Syncope and collapse] 11-02-2021 Episodic Past or Other Problems Problem Classification Problem Date Documented Date Episodic/Chronic Acute and chronic tonsillitis (20 sources) Hypertrophy of adenoids; Translations: [Hypertrophy of adenoids] Onset: 06-23-2017 Resolved: 06-24-2024 06-24-2024 Chronic Cardiac dysrhythmias (1 source) Palpitations; Translations: [Palpitations] Onset: 08-28-2023 Episodic Hemorrhage during ; abruptio placenta; placenta previa (16 sources) Third trimester bleeding; Translations: [Antepartum hemorrhage, unspecified, third trimester] Onset: 08-28-2023 Resolved: 06-24-2024 02-15-2020 Episodic Mood disorders (8 sources) Mood disorders Onset: 11-19-2023 Resolved: 12-14-2023 11-19-2023 Other aftercare (1 source) Surgical follow-up; Translations: [Encounter for follow-up examination after completed treatment for conditions other than malignant neoplasm] 11-20-2023 Episodic Other complications of ; puerperium affecting management of mother (1 source) Maternal care for (suspected) abnormality and damage, unspecified, not applicable or unspecified; Translations: [Maternal care for (suspected) abnormality and damage, unspecified, not applicable or unspecified] Onset: 08-28-2023 Episodic Other complications of (13 sources) Complication occurring during ; Translations: [Other [...] Onset: 08-28-2023 Episodic Other upper respiratory disease (20 sources) Deviated nasal septum; Translations: [Deviated nasal septum] Onset: 09-15-2018 06-24-2024 Episodic Other upper respiratory disease (11 sources) Nasal congestion; Translations: [Nasal congestion] Onset: 06-23-2017 06-23-2017 Episodic Other upper respiratory infections (20 sources) Acute pharyngitis, unspecified; Translations: [Acute pharyngitis] Onset: 10-27-2017 Resolved: 06-24-2024 04-14-2024 Episodic Residual codes; unclassified (20 sources) History of adenoidectomy; Translations: [Acquired absence of other organs] Onset: 08-04-2017 06-24-2024 Episodic Umbilical cord complication (14 sources) Labor and delivery complicated by vasa previa, fetus 1; Translations: [Labor and delivery complicated by vasa previa, not applicable or unspecified] Onset: 08-28-2023 Resolved: 11-19-2023 08-28-2023 Episodic Urinary tract infections (13 sources) Urinary tract infectious disease; Translations: [Urinary tract infection, site not specified] Onset: 06-24-2024 Resolved: 06-24-2024 11-02-2021 Episodic Results Test Name Value Interpretation Reference Range Facility CBC (H/H, RBC, INDICES, WBC, PLT)on 01-20-2025 Erythrocyte distribution width (RBC) [Ratio] 13.7 % Normal 11.0-15.0 [facility] Comment on above: Performed By: #### 1 3590, 1063, 36355 #### [facility] [address], [address] [place] [address] Retail Account Executive: Tavo Barnes MD #### 1759 #### [facility]-[address] [address] Retail Account Executive: Lu Champagne Hematocrit (Bld) [Volume fraction] 44.8 % Normal 35.0-45.0 [facility] Comment on above: Performed By: #### 1 7306, 5616, 94026 #### [facility] [address], [address] [place] [address] Retail Account Executive: Tavo Barnes MD #### 1759 #### [facility] [address] [place] [phone] Retail Account Executive: Lu Champagne Hemoglobin (Bld) [Mass/Vol] 14.8 g/dL Normal 11.7-15. 5 [facility] Comment on above: Performed By: #### 1 7306, 561, 15926 #### [facility] [address], [address] [place] [address] Retail Account Executive: Tavo Barnes MD #### 1759 #### [facility]-[address] [address] Retail Account Executive: uL Champagne MCH (RBC) [Entitic mass] 29.4 pg Normal 27.0-33.0 [facility] Comment on above: Performed By: #### 1 7306, 561, 28411 #### [facility] [address], [address] [place], [place] [phone] Retail Account Executive: Tavo Barnes MD #### 1759 #### [facility] [address] [place] [phone] Retail Account Executive: Lu Champagne MCHC (RBC) [Mass/Vol] 33.0 g/dL Normal 32.0-36.[address] [facility] Comment on above: Result Comment: For adults, a slight decrease in the calculated MCHC value (in the range of 30 to 32 g/dL) is most likely not clinically significant; however, it should be interpreted with caution in correlation with other red cell parameters and the patient's clinical condition. Performed By: #### 1 73, 561, 93094 #### [place] [address] Retail Account Executive: Tavo Barnes MD #### 1759 #### [facility]-[place] [id number] Retail Account Executive: Lu Champagne MCV (RBC) [Entitic vol] 88.9 fL Normal 80.0-100.0 [facility] Comment on above: Performed By: #### 1 73, 561, 12628 #### [place] [address] Retail Account Executive: Tavo Barnes MD #### 1759 #### [facility] [address] Retail Account Executive: Lu Champagne Platelet mean volume (Bld) [Entitic vol] 10.9 fL Normal 7.5-12.5 [facility] Comment on above: Performed By: #### 1 73, 5615, 82522 #### [place] [address] Retail Account Executive: Tavo Barnes MD #### 1759 #### [facility] [address] Retail Account Executive: Lu Champagne Platelets (Bld) [#/Vol] 215 10*3/uL Normal 140-400 [facility] Comment on above: Performed By: #### 1 7306, 5615, 64408 #### [place] [address] Retail Account Executive: Tavo Barnes MD #### 1759 #### [facility] [address] [place] [address] Retail Account Executive: Lu Champagne RBC (Bld) [#/Vol] 5.04 10*6/uL Normal 3.80-5.10 [facility] Comment on above: Performed By: #### 1 7306, 5616, 06921 #### [facility] [address], [address] [place] [address] Retail Account Executive: Tavo Barnes MD #### 1759 #### [facility] [address] Retail Account Executive: Lu Champange WBC (Bld) [#/Vol] 4.8 10*3/uL Normal 3.8-10.8 [facility] Comment on above: Performed By: #### 1 7306, 5616, 78053 #### [facility] [address], [address] [place] [address] Retail Account Executive: Tavo Barnes MD #### 1759 #### [facility] [address] Retail Account Executive: Lu Champagne IRON, TIBC AND FERRITIN [facility] 01-20-2025 % SATURATION 31 % (calc) Normal 16-45 [facility] Comment on above: Order Comment: FASTI NG:NO FASTING: NO Performed By: #### 1 7306, 5616, 25873 #### [facility] [place] [address] Retail Account Executive: Tavo Barnes MD #### 1759 #### [facility] [address] Retail Account Executive: Lu Champagne Ferritin [Mass/Vol] 14 ng/mL Low 16-154 [facility] Comment on above: Order Comment: FASTI NG:NO FASTING: NO Performed By: #### 1 7306, 5616, 12847 #### [facility] [place] [address] Retail Account Executive: Tavo Barnes MD #### 1759 #### [facility] [address] Retail Account Executive: Lu Champagne IRON BINDING CAPACITY 373 mcg/dL (calc) Normal 250-450 [facility] Comment on above: Order Comment: FASTI NG:NO FASTING: NO Performed By: #### 1 7306, 561, 82194 #### [facility] [place] [address] Retail Account Executive: Tavo Barnes MD #### 1759 #### [facility] [address] [place] [address] Retail Account Executive: Lu Champagne IRON, TOTAL 116 mcg/dL Normal 40-190 [facility] Comment on above: Order Comment: FASTI NG:NO FASTING: NO Performed By: #### 1 7306, 561, 44263 #### [facility] [place] [address] Retail Account Executive: Tavo Barnes MD #### 1759 #### [facility] [place] [address] Retail Account Executive: Lu Champagne TSH W/REFLEX TO FT4on 2024 TSH W/REFLEX TO FT4 1.04 mIU/L Normal [facility] Comment on above: Result Comment: Refe rence Range > or = 20 Years 0.40-4.50 Ranges First trimester 0.26-2.66 Second trimester 0.55-2.73 Third trimester 0.43-2.91 Performed By: #### 1 7306, 561, 19150 #### [facility] [place] [address] Retail Account Executive: Tavo Barnes MD #### 1759 #### [facility] [place] [phone] Retail Account Executive: Lu Champagne VITAMIN D,25-OH,TOTAL,IAon 0 01-20-2025 VITAMIN D,25-OH,TOTAL,IA 27 ng/mL Low 30-100 [facility] Comment on above: Result Comment: Fiorella min D Status 25-OH Vitamin D: Deficiency: <20 ng/mL Insufficiency: 20 - 29 ng/mL Optimal: > or = 30 ng/mL For 25-OH Vitamin D testing on patients on D2-supplementation and patients for whom quantitation of D2 and D3 fractions is required, the [facility](TM) 25-OH VIT D, (D2,D3), LC/MS/MS is recommended: order code 41220 (patients >2yrs). See Note 1 Note 1 For additional information, please refer to http://education.[employer]Sm[employer].ZAO Begun/faq/IAF489 (This link is being provided for informational/ educational purposes only.) Performed By: #### 1 7306, 5616, 95806 #### [facility] [address] [facility], [address] [place] [address] Retail Account Executive: Tavo Barnes MD #### 1759 #### [facility] [address] [place] [address] Retail Account Executive: Lu Champagne ALL DEHYDROEPIANDROSTERONEon 08-27-2024 DHEA, SERUM 428 ng/dL 31 - 701 ng/dL [facility] Comment on above: This test was develo ped and its performance characteristics determined by [facility]. It has not been cleared or approved by the Food and Drug Administration. Performed at: [address] [id number] Floriculture Professor: Ede Cortez MD, Phone: [phone] [facility] ALL DHEA SULFATEon DHEA-SULFATE 293.0 ug/dL 110.0 - 431.7 ug/dL [facility] Comment on above: Performed at: [address] [id number] Floriculture Professor: Marbin Tracey PhD, Phone: [phone] [facility] Insertion/Removal of Contrac eptive Capsuleon 07-08-2024 Margie [...] fashion: yes Procedure: Procedure: Removal Left/right: Right [facility] HCG ( test) Ql (U)o n 06-22-2024 Interpretation and review of laboratory results Normal [facility] Preg Test, Ur Negative [facility] IUD Insertionon 06-22-2024 Jennifer JenniferviolettaKHUSHI 06/23/2024 9:54 AM IUD Insertion Date/Time: 06/22/2024 2:06 PM Performed by: Davin Blum DO Authorized by: Davin Blum DO Consent: Consent obtained: Written Consent given by: Patient Procedure risks and benefits discussed: yes Patient questions answered: yes Patient agrees, verbalizes understanding, and wants to proceed: yes Educational handouts given: yes Instructions and paperwork completed: yes [place] protocol: Patient states understanding of procedure being performed: yes Relevant documents present and verified: yes Test results available and properly labeled: yes Imaging studies available: yes Required blood products, implants, devices, and special equipment available: yes Procedure: Pelvic exam performed: yes Negative GC/chlamydia test: no Negative urine test: yes Negative serum test: no Cervix cleaned and prepped: yes Speculum placed in vagina: yes Tenaculum applied to cervix: yes Uterus sounded: yes IUD inserted with no complications: yes IUD type: Mirena Strings trimmed: yes Post-procedure: Patient tolerated procedure well: yes Patient will follow up after next period: no Comments: IUD Insertion: Patient presents today for an IUD Insertion. Patient is having a Mirena placed and written consent was obtained. Patient was placed in the dorsal lithotomy position with feet in stirrups. A sterile speculum ws placed into the vagina and the cervix was visualized. Cervix was cleansed with betadine and the anterior lip was grasped with ring forceps. Uterus was then gently sounded. New IUD device was gently advanced through the endocervix, toward te uterine fundus. The IUD was then deployed as device was gently removed from the uterus. The IUD strings were cut to the length from external os. All instruments were removed from the vagina. Post-procedure instructions given. All of patients questions were answered and she expressed understanding. Advised to call interim with any questions or concerns. Follow Up: Patient is to return to the office in 4 weeks for a string check. [facility] ALL CBC WITH AUTO DIFFon BASOPHILS ABSOLUTE AUTO 0.0 N [facility] Basophils/100 WBC (Bld) 0.5 % 0.2 - 2.0 % [facility] Eosinophils/100 WBC (Bld) 3.9 % 0.9 - 7.0 % [facility] Erythrocyte distribution width (RBC) [Ratio] 12.7 % 11.0 - 15.0 % [facility] Hematocrit (Bld) [Volume fraction] 42.9 % 36.0 - 48.0 % [facility] Hemoglobin (Bld) [Mass/Vol] 14.2 g/dL 12.0 - 16.0 g/dL [facility] IMMATURE GRANULOCYTES ABS AUTO 0.01 [facility] Immature granulocytes/100 WBC (Bld) 0.2 % 0.0 - 0.5 % [facility] Interpretation and review of laboratory results Abnormal [facility] LYMPHOCYTES ABSOLUTE AUTO 1.6 [facility] Lymphocytes/100 WBC (Bld) 38.3 % 20 .5 - 60.0 % [facility] MCH (RBC) [Entitic mass] 29.5 pg 26. 7 - 34.0 pg [facility] MCHC (RBC) [Mass/Vol] 33.1 g/dL 29.9 - 35.2 g/dL [facility] MCV (RBC) [Entitic vol] 89.0 fL 81.0 - 99.0 fL [facility] MONOCYTES ABSOLUTE AUTO 0.2 Low N [facility] Monocytes/100 WBC (Bld) 4.4 % 1.7 - 12.0 % [facility] NEUTROPHILS ABSOLUTE AUTO 2.2 [facility] Neutrophils/100 WBC (Bld) 52.7 % 43 .0 - 75.0 % [facility] Platelet mean volume (Bld) [Entitic vol] 11.1 fL 9.5 - 13.5 fL [facility] TBH EO # 0.2 [facility] TB PLT [address] [facility] RBC 4.82 [facility] WBC 4.1 [facility] No Panel InformationOrdered By: Livier Howe on 04-14-2024 Quick Strep (POC) [facility] CBC AND AUTO DIFFon 11-12-19 ABSOLUTE BASOPHIL 0.0 X10E9/L Normal 0.0-0.2 [facility] Comment on above: Performed By: #### 2 0438-8 #### [facility] ([id number]) [address], [address] [place] [address] ABSOLUTE NEUTROPHIL 7.1 X10E9/L High 1.5-6.6 [facility] Comment on above: Performed By: #### 2 0438-8 #### [facility] ([id number]) [address], [address] [place] [address] Basophils/100 WBC (Bld) 0.1 % Normal P [facility] Comment on above: Performed By: #### 2 0438-8 #### [facility] ([id number]) [address], [address] [place] [address] Eosinophils (Bld) [#/Vol] 0.1 10*3/uL Normal 0.0-0.4 [facility] Comment on above: Performed By: #### 2 0438-8 #### [facility] ([id number]) [address], [address] [place] [address] Eosinophils/100 WBC (Bld) 0.6 % Normal [facility] Comment on above: Performed By: #### 2 0438-8 #### [facility] ([id number]) [address], [address] [place] [address] Erythrocyte distribution width (RBC) [Ratio] 15.5 % High 11.5-15.0 [facility] Comment on above: Performed By: #### 2 0438-8 #### [facility] ([id number]) [address], [address] [place] [address] Hematocrit (Bld) [Volume fraction] 31.2 % Low 35-47 [facility] Comment on above: Performed By: #### 2 0438-8 #### [facility] ([id number]) [address], [address] [place] [address] Hemoglobin (Bld) [Mass/Vol] 10.9 g/dL Low 11.7-15. 5 [facility] Comment on above: Performed By: #### 2 0438-8 #### [facility] ([id number]) [address], [address] [address] [place] [address] Lymphocytes (Bld) [#/Vol] 1.7 10*3/uL Normal 1.0-3.5 [facility] Comment on above: Performed By: #### 2 0438-8 #### [facility] ([id number]) [address], [address] [place] [address] Lymphocytes/100 WBC (Bld) 18.3 % Normal [facility] Comment on above: Performed By: #### 2 0438-8 #### [facility] ([id number]) [address], [address] [place] [address] MCH (RBC) [Entitic mass] 31.0 pg Normal 27-34 [facility] Comment on above: Performed By: #### 2 0438-8 #### [facility] ([id number]) [address], [address] [place] [address] MCHC (RBC) [Mass/Vol] 35.0 g/dL Normal 32-36 [facility] Comment on above: Performed By: #### 2 0438-8 #### [facility] ([id number]) [address], [address] [place] [address] MCV (RBC) [Entitic vol] 89 fL Normal 80-100 [facility] Comment on above: Performed By: #### 2 0438-8 #### [facility] ([id number]) [address], [address] [place] [address] Monocytes (Bld) [#/Vol] 0.6 10*3/uL Normal 0-0.9 [facility] Comment on above: Performed By: #### 2 0438-8 #### [facility] ([id number]) [address], [address] [place] [address] Monocytes/100 WBC (Bld) 6.8 % Normal [facility] Comment on above: Performed By: #### 2 0438-8 #### [facility] ([id number]) [address], [address] [place] [address] Neutrophils/100 WBC (Bld) 74.2 % Normal [facility] Comment on above: Performed By: #### 2 0438-8 #### [facility] ([id number]) [address], [address] [place] [address] Platelet mean volume (Bld) [Entitic vol] 8.9 fL Normal 7-12 [facility] Comment on above: Performed By: #### 2 0438-8 #### [facility] ([id number]) [address], [address] [place] [address] Platelets (Bld) [#/Vol] 138 10*3/uL Low 150-450 [facility] Comment on above: Performed By: #### 2 0438-8 #### [facility] ([id number]) [address], [address] [place] [address] RBC COUNT 3.52 X10E12/L Low 3.80-5.20 [facility] Comment on above: Performed By: #### 2 0438-8 #### [facility] ([id number]) [address], [address] [place] [address] WBC (Bld) [#/Vol] 9.5 10*3/uL Normal 4.0-11.0 [facility] Comment on above: Performed By: #### 2 0438-8 #### [facility] ([id number]) [address], [address] [place] [address] CBC AND AUTO DIFFon 11-11-19 24 ABSOLUTE BASOPHIL 0.0 X10E9/L Normal 0.0-0.2 [facility] Comment on above: Performed By: #### 2 0438-8 #### [facility] ([id number]) [address], [address] [place] [address] ABSOLUTE NEUTROPHIL 3.6 X10E9/L Normal 1.5-6.6 [facility] Comment on above: Performed By: #### 2 0438-8 #### [facility] ([id number]) [address], [address] [place] [address] Basophils/100 WBC (Bld) 0.4 % Normal [facility] Comment on above: Performed By: #### 2 0438-8 #### [facility] ([id number]) [address], [address] [place] [address] Eosinophils (Bld) [#/Vol] 0.1 10*3/uL Normal 0.0-0.4 [facility] Comment on above: Performed By: #### 2 0438-8 #### [facility] ([id number]) [address], [address] [place] [address] Eosinophils/100 WBC (Bld) 1.5 % Normal [facility] Comment on above: Performed By: #### 2 0438-8 #### [facility] ([id number]) [address], [address] [place] [address] Erythrocyte distribution width (RBC) [Ratio] 15.9 % High 11.5-15.0 [facility] Comment on above: Performed By: #### 2 0438-8 #### [facility] ([id number]) [address], [address] [place] [address] Hematocrit (Bld) [Volume fraction] 33.8 % Low 35-47 [facility] Comment on above: Performed By: #### 2 0438-8 #### [facility] ([id number]) [address], [address] [place] [address] Hemoglobin (Bld) [Mass/Vol] 11.6 g/dL Low 11.7-15. 5 [facility] Comment on above: Performed By: #### 2 0438-8 #### [facility] ([id number]) [address], [address] [place] [address] Lymphocytes (Bld) [#/Vol] 1.7 10*3/uL Normal 1.0-3.5 [facility] Comment on above: Performed By: #### 2 0438-8 #### [facility] ([id number]) [address], [address] [place] [address] Lymphocytes/100 WBC (Bld) 29.4 % Normal [facility] Comment on above: Performed By: #### 2 0438-8 #### [facility] ([id number]) [address], [address] [place] [address] MCH (RBC) [Entitic mass] 30.7 pg Normal 27-34 [facility] Comment on above: Performed By: #### 2 0438-8 #### [facility] ([id number]) [address], [address] [place] [address] MCHC (RBC) [Mass/Vol] 34.2 g/dL Normal 32-36 [facility] Comment on above: Performed By: #### 2 0438-8 #### [facility] ([id number]) [address], [address] [place] [address] MCV (RBC) [Entitic vol] 90 fL Normal 80-100 [facility] Comment on above: Performed By: #### 2 0438-8 #### [facility] ([id number]) [address], [address] [place] [address] Monocytes (Bld) [#/Vol] 0.4 10*3/uL Normal 0-0.9 [facility] Comment on above: Performed By: #### 2 0438-8 #### [facility] ([id number]) [address], [address] [place] [address] Monocytes/100 WBC (Bld) 6.1 % Normal [facility] Comment on above: Performed By: #### 2 0438-8 #### [facility] ([id number]) [address], [address] [place] [address] Neutrophils/100 WBC (Bld) 62.6 % Normal [facility] Comment on above: Performed By: #### 2 0438-8 #### [facility] ([id number]) [address], [address] [place] [address] Platelet mean volume (Bld) [Entitic vol] 8.9 fL Normal 7-12 [facility] Comment on above: Performed By: #### 2 0438-8 #### [facility] ([id number]) [address], [address] [place] [address] Platelets (Bld) [#/Vol] 132 10*3/uL Low 150-450 [facility] Comment on above: Performed By: #### 2 0438-8 #### [facility] ([id number]) [address], [address] [place] [address] RBC COUNT 3.78 X10E12/L Low 3.80-5.20 [facility] Comment on above: Performed By: #### 2 0438-8 #### [facility] ([id number]) [address], [address] [place] [address] WBC (Bld) [#/Vol] 5.8 10*3/uL Normal 4.0-11.0 [facility] Comment on above: Performed By: #### 2 0438-8 #### [facility] ([id number]) [address] [place] [address] [address] [place] [address] Surgical Pathologyon 024 Surgical Pathology Normal [facility] Comment on above: Result Comment: [facility] [address] [place] [address] Surgical Pathology Consultation Patient Name:JOSELIN VALENZUELA:2005 (Age: 18)Gender:FTaken:11/11/2023eported:11/25/2023hysician(s):Lydia Hook M.D.Copy To:Deirdre Zuñiga [facility] #:[id number]. Rec. #:[id number]: #[id number] Final Pathologic Diagnosis Placenta: 378-gram third trimester placenta with three-vessel umbilical cord. Report Electronically Signed Out pss/11/25/2023durga Lazo MD Interpretation performed at [facility], [address] [place] [address], License number: [id number]. Clinical History Vasa previa, IUP vasa previa. Gross Description Received in formalin labeled romero VALENZUELA : Single MEMBRANES: Placenta Sac Rupture (cm [...] Rolled membrane, two sections of cord [employer] sections of placenta (4,ss,[id number]) MD. sanders/11/19/2023GP Specimen(s) Received Placenta Fee Codes(s): 1; 89337 STREP B SCREEN CULTUREon S. agalactiae Org specific cx Ql (Vag+Rectum) CULTURE RESULTS NEGATIVE FOR GROUP B STREPTOCOCCUS BY NUCLEIC ACID AMPLIFICATION Normal [facility] Comment on above: Performed By: #### 2 0438-8 #### [facility] ([id number]) [address], [address] [place] [address] CBC AND AUTO DIFFon 11-06-19 24 ABSOLUTE BASOPHIL 0.0 X10E9/L Normal 0.0-0.2 [facility] Comment on above: Performed By: #### 2 0438-8 #### [facility] ([id number]) [address], [address] [place] [address] ABSOLUTE NEUTROPHIL 3.6 X10E9/L Normal 1.5-6.6 [facility] Comment on above: Performed By: #### 2 0438-8 #### [facility] ([id number]) [address], [address] [place] [address] Basophils/100 WBC (Bld) 0.1 % Normal [facility] Comment on above: Performed By: #### 2 0438-8 #### [facility] ([id number]) [address], [address] [place] [address] Eosinophils (Bld) [#/Vol] 0.1 10*3/uL Normal 0.0-0.4 [facility] Comment on above: Performed By: #### 2 0438-8 #### [facility] ([id number]) [address], [address] [place] [address] Eosinophils/100 WBC (Bld) 1.0 % Normal [facility] Comment on above: Performed By: #### 2 0438-8 #### [facility] ([id number]) [address], [address] [place] [address] Erythrocyte distribution width (RBC) [Ratio] 15.7 % High 11.5-15.0 [facility] Comment on above: Performed By: #### 2 0438-8 #### [facility] ([id number]) [address], [address] [place] [address] Hematocrit (Bld) [Volume fraction] 34.0 % Low 35-47 [facility] Comment on above: Performed By: #### 2 0438-8 #### [facility] ([id number]) [address], [address] [place] [address] Hemoglobin (Bld) [Mass/Vol] 11.6 g/dL Low 11.7-15. 5 [facility] Comment on above: Performed By: #### 2 0438-8 #### [facility] ([id number]) [address], [address] [place] [address] Lymphocytes (Bld) [#/Vol] 1.8 10*3/uL Normal 1.0-3.5 [facility] Comment on above: Performed By: #### 2 0438-8 #### [facility] ([id number]) [address], [address] [place] [address] Lymphocytes/100 WBC (Bld) 30.8 % Normal [facility] Comment on above: Performed By: #### 2 0438-8 #### [facility] ([id number]) [address], [address] [place] [address] MCH (RBC) [Entitic mass] 30.5 pg Normal 27-34 [facility] Comment on above: Performed By: #### 2 0438-8 #### [facility] ([id number]) [address], [address] [place] [address] MCHC (RBC) [Mass/Vol] 34.0 g/dL Normal 32-36 [facility] Comment on above: Performed By: #### 2 0438-8 #### [facility] ([id number]) [address], [address] [place] [address] MCV (RBC) [Entitic vol] 90 fL Normal 80-100 [facility] Comment on above: Performed By: #### 2 0438-8 #### [facility] ([id number]) [address], [address] [place] [address] Monocytes (Bld) [#/Vol] 0.4 10*3/uL Normal 0-0.9 [facility] Comment on above: Performed By: #### 2 0438-8 #### [facility] ([id number]) [address], [address] [place] [address] Monocytes/100 WBC (Bld) 6.2 % Normal [facility] Comment on above: Performed By: #### 2 0438-8 #### [facility] ([id number]) [address], [address] [place] [address] Neutrophils/100 WBC (Bld) 61.9 % Normal [facility] Comment on above: Performed By: #### 2 0438-8 #### [facility] ([id number]) [address], [address] [place] [address] Platelet mean volume (Bld) [Entitic vol] 8.6 fL Normal 7-12 [facility] Comment on above: Performed By: #### 2 0438-8 #### [facility] ([id number]) [address], [address] [place] [address] Platelets (Bld) [#/Vol] 140 10*3/uL Low 150-450 [facility] Comment on above: Performed By: #### 2 0438-8 #### [facility] ([id number]) [address], [address] [place] [address] RBC COUNT 3.79 X10E12/L Low 3.80-5.20 [facility] Comment on above: Performed By: #### 2 0438-8 #### [facility] ([id number]) [address], [address] [place] [address] WBC (Bld) [#/Vol] 5.8 10*3/uL Normal 4.0-11.0 [facility] Comment on above: Performed By: #### 2 0438-8 #### [facility] ([id number]) [address], [address] [place] [address] COMPREHENSIVE METABOLIC PANE Alex 11-06-2023 Albumin [Mass/Vol] 3.2 g/dL Normal 3.2-5.3 [facility] Comment on above: Performed By: #### 2 0438-8 #### [facility] ([id number]) [address], [address] [place] [address] ALP [Catalytic activity/Vol] 93 U/L Normal 39-130 [facility] Comment on above: Performed By: #### 2 0438-8 #### [facility] ([id number]) [address], [address] [place] [address] ALT [Catalytic activity/Vol] 10 U/L Normal 0-31 [facility] Comment on above: Performed By: #### 2 0438-8 #### [facility] ([id number]) [address], [address] [place] [address] Anion gap [Moles/Vol] 10 mmol/L Normal 5-15 [facility] Comment on above: Performed By: #### 2 0438-8 #### [facility] ([id number]) [address], [address] [place] [address] AST [Catalytic activity/Vol] 10 U/L Normal 0-41 [facility] Comment on above: Performed By: #### 2 0438-8 #### [facility] ([id number]) [address] [place] [address] Bilirubin [Mass/Vol] 0.4 mg/dL Normal 0.3-1.2 [facility] Comment on above: Performed By: #### 2 0438-8 #### [facility] ([id number]) [address], [address] [place] [address] Calcium [Mass/Vol] 8.5 mg/dL Normal 8.5-10.5 [facility] Comment on above: Performed By: #### 2 0438-8 #### [facility] ([id number]) [address], [address] [place] [address] Chloride [Moles/Vol] 107 mmol/L Normal 98-109 [facility] Comment on above: Performed By: #### 2 0438-8 #### [facility] ([id number]) [address] [place] [address] CO2 [Moles/Vol] 23 mmol/L Normal 22-32 [facility] Comment on above: Performed By: #### 2 0438-8 #### [facility] ([id number]) [address] [place] [address] Creatinine [Mass/Vol] 0.50 mg/dL Normal 0.40-1.00 [facility] Comment on above: Result Comment: METH OD TRACEABLE TO IDMS STANDARD Performed By: #### 2 0438-8 #### [facility] ([id number]) [address], [address] [place] [address] eGFR (CKD-EPI) NON-RACE DEPENDENT >90 Normal >59 [facility] Comment on above: Result Comment: Reported eGFR is based on the CKD-EPI 2021 equation that does not use a race coefficient. Performed By: #### 2 0438-8 #### [facility] ([id number]) [address], [address] [place] [address] Glucose [Mass/Vol] 79 mg/dL Normal 65-99 [facility] Comment on above: Performed By: #### 2 0438-8 #### [facility] ([id number]) [address], [address] [place] [address] Potassium [Moles/Vol] 3.9 mmol/L Normal 3.5-5.0 [facility] Comment on above: Performed By: #### 2 0438-8 #### [facility] ([id number]) [address] [place] [address] Protein [Mass/Vol] 5.4 g/dL Low 6.0-8.0 [facility] Comment on above: Performed By: #### 2 0438-8 #### [facility] ([id number]) [address] [place] [address] Sodium [Moles/Vol] 140 mmol/L Normal 134-146 [facility] Comment on above: Performed By: #### 2 0438-8 #### [facility] ([id number]) [address], [address] [place] [address] Urea nitrogen [Mass/Vol] 4 mg/dL Low 5-23 [facility] Comment on above: Performed By: #### 2 0438-8 #### [facility] ([id number]) [address] [place] [address] URINALYSISon 10-18-2023 Bilirubin Ql (U) Negative Normal NEG [facility] Comment on above: Performed By: #### 2 0438-8 #### [facility] ([id number]) [address], [address] [place] [address] BLOOD/HGB Trace Abnormal NEG [facility] Comment on above: Performed By: #### 2 0438-8 #### [facility] ([id number]) [address] [place] [address] Color (U) YELLOW Normal YELLOW [facility] Comment on above: Performed By: #### 2 0438-8 #### [facility] ([id number]) [address] [place] [address] Glucose Ql (U) Negative Normal NEG [facility] Comment on above: Performed By: #### 2 0438-8 #### [facility] ([id number]) [address] [place] [address] Ketones Ql (U) 100 mg/dL Abnormal NEG [facility] Comment on above: Performed By: #### 2 0438-8 #### [facility] ([id number]) [address] [place] [address] Leukocyte esterase Test strip Ql (U) Negative Normal NEG [facility] Comment on above: Performed By: #### 2 0438-8 #### [facility] ([id number]) [address] [place] [address] MUCOUS PRESENT Abnormal NONE [facility] Comment on above: Performed By: #### 2 0438-8 #### [facility] ([id number]) [address] [place] [address] Nitrite Ql (U) Negative Normal NEG [facility] Comment on above: Performed By: #### 2 0438-8 #### [facility] ([id number]) [address] [place] [address] pH (U) 5.0 [pH] Normal 5.0-8.5 [facility] Comment on above: Performed By: #### 2 0438-8 #### [facility] ([id number]) [address] [place] [address] Protein Ql (U) Negative Normal NEG [facility] Comment on above: Performed By: #### 2 0438-8 #### [facility] ([id number]) [address], [facility] [address] [place] [address] R.B.CELLS 2 /hpf Normal 0-5 [facility] Comment on above: Performed By: #### 2 0438-8 #### [facility] ([id number]) [address], [facility] [address] [place] [address] Specific gravity (U) [Rel density] 1.017 Normal 1.003-1.035 [facility] Comment on above: Performed By: #### 2 0438-8 #### [facility] ([id number]) [address] [place] [address] SQUAMOUS EPITHELIUM 1 /hpf Normal 0-5 [facility] Comment on above: Performed By: #### 2 0438-8 #### [facility] ([id number]) [address] [place] [address] TURBIDITY CLEAR Normal CLEAR [facility] Comment on above: Performed By: #### 2 0438-8 #### [facility] ([id number]) [address] [place] [address] Urinalysis dipstick W Reflex Microscopic panel (U) URINE RECEIVED WITHOUT PRESERVATIVE-DELAY S IN TRANSPORT MAY AFFECT RESULTS.INTERPRET WITH CAUTION AND CLINICAL CORRELATION IS RECOMMENDED. Normal [facility] Comment on above: Performed By: #### 2 0438-8 #### [facility] ([id number]) [address] [place] [address] Urobilinogen (U) [Mass/Vol] mg/dL Normal <1.1 [facility] Comment on above: Performed By: #### 2 0438-8 #### [facility] ([id number]) [address] [place] [address] W.B.CELLS <1 Normal 0-5 [facility] Comment on above: Performed By: #### 2 0438-8 #### [facility] ([id number]) [address] [place] [address] CBC AND AUTO DIFFon 10-14-19 24 ABSOLUTE BASOPHIL 0.0 X10E9/L Normal 0.0-0.2 [facility] Comment on above: Performed By: #### C MED, CMP #### [facility] ([id number]) [address] [place] [address] ABSOLUTE NEUTROPHIL 4.5 X10E9/L Normal 1.5-6.6 [facility] Comment on above: Performed By: #### C BCA, CMP #### [facility] ([id number]) [address] [place] [address] Basophils/100 WBC (Bld) 0.2 % Normal [facility] Comment on above: Performed By: #### C BCA, CMP #### [facility] ([id number]) [address] [place] [address] Eosinophils (Bld) [#/Vol] 0.1 10*3/uL Normal 0.0-0.4 [facility] Comment on above: Performed By: #### C BCA, CMP #### [facility] ([id number]) [address] [place] [address] Eosinophils/100 WBC (Bld) 2.0 % Normal [facility] Comment on above: Performed By: #### C BCA, CMP #### [facility] ([id number]) [address] [place] [address] Erythrocyte distribution width (RBC) [Ratio] 16.7 % High 11.5-15.0 [facility] Comment on above: Performed By: #### C MED, CMP #### [facility] ([id number]) [address] [place] [address] Hematocrit (Bld) [Volume fraction] 35.4 % Normal 35-47 [facility] Comment on above: Performed By: #### C BCA, CMP #### [facility] ([id number]) [address] [address] [place] [address] Hemoglobin (Bld) [Mass/Vol] 12.0 g/dL Normal 11.7-15. 5 [facility] Comment on above: Performed By: #### C BCA, CMP #### [facility] ([id number]) [address] [address] [place] [address] Lymphocytes (Bld) [#/Vol] 1.5 10*3/uL Normal 1.0-3.5 [facility] Comment on above: Performed By: #### C MED, CMP #### [facility] ([id number]) [address] [place] [address] Lymphocytes/100 WBC (Bld) 23.7 % Normal [facility] Comment on above: Performed By: #### C BCA, CMP #### [facility] ([id number]) [address] [place] [address] MCH (RBC) [Entitic mass] 30.7 pg Normal 27-34 [facility] Comment on above: Performed By: #### C BCA, CMP #### [facility] ([id number]) [address] [address] [place] [address] MCHC (RBC) [Mass/Vol] 34.1 g/dL Normal 32-36 [facility] Comment on above: Performed By: #### C BCA, CMP #### [facility] ([id number]) [address] [place] [address] MCV (RBC) [Entitic vol] 90 fL Normal 80-100 [facility] Comment on above: Performed By: #### C BCA, CMP #### [facility] ([id number]) [address] [place] [address] Monocytes (Bld) [#/Vol] 0.3 10*3/uL Normal 0-0.9 [facility] Comment on above: Performed By: #### C MED, CMP #### [facility] ([id number]) [address] [place] [address] Monocytes/100 WBC (Bld) 5.2 % Normal [facility] Comment on above: Performed By: #### C MED, CMP #### [facility] ([id number]) [address], [address] [place] [address] Neutrophils/100 WBC (Bld) 68.9 % Normal [facility] Comment on above: Performed By: #### C MED, CMP #### [facility] ([id number]) [address] [place] [address] Platelet mean volume (Bld) [Entitic vol] 8.7 fL Normal 7-12 [facility] Comment on above: Performed By: #### C MED, CMP #### [facility] ([id number]) [address] [place] [address] Platelets (Bld) [#/Vol] 158 10*3/uL Normal 150-450 [facility] Comment on above: Performed By: #### C BCA, CMP #### [facility] ([id number]) [address] [place] [address] RBC COUNT 3.93 X10E12/L Normal 3.80-5.20 [facility] Comment on above: Performed By: #### C BCA, CMP #### [facility] ([id number]) [address] [place] [address] WBC (Bld) [#/Vol] 6.5 10*3/uL Normal 4.0-11.0 [facility] Comment on above: Performed By: #### C BCA, CMP #### [facility] ([id number]) [address] [place] [address] COMPREHENSIVE METABOLIC PANE Alex 10-14-2023 Albumin [Mass/Vol] 3.4 g/dL Normal 3.2-5.3 [facility] Comment on above: Performed By: #### C BCA, CMP #### [facility] ([id number]) [address], [address] [place] [address] ALP [Catalytic activity/Vol] 75 U/L Normal 39-130 [facility] Comment on above: Performed By: #### C BCA, CMP #### [facility] ([id number]) [address], [address] [place] [address] ALT [Catalytic activity/Vol] 13 U/L Normal 0-31 [facility] Comment on above: Performed By: #### C BCA, CMP #### [facility] ([id number]) [address], [address] [place] [address] Anion gap [Moles/Vol] 10 mmol/L Normal 5-15 [facility] Comment on above: Performed By: #### C BCA, CMP #### [facility] ([id number]) [address], [address] [place] [address] AST [Catalytic activity/Vol] 18 U/L Normal 0-41 [facility] Comment on above: Performed By: #### C BCA, CMP #### [facility] ([id number]) [address], [address] [place] [address] Bilirubin [Mass/Vol] 0.4 mg/dL Normal 0.3-1.2 [facility] Comment on above: Performed By: #### C MED, CMP #### [facility] ([id number]) [address], [address] [place] [address] Calcium [Mass/Vol] 9.0 mg/dL Normal 8.5-10.5 [facility] Comment on above: Performed By: #### C MED, CMP #### [facility] ([id number]) [address], [address] [place] [address] Chloride [Moles/Vol] 103 mmol/L Normal 98-109 [facility] Comment on above: Performed By: #### C MED, CMP #### [facility] ([id number]) [address], [address] [place] [address] CO2 [Moles/Vol] 22 mmol/L Normal 22-32 [facility] Comment on above: Performed By: #### C MED, CMP #### [facility] ([id number]) [address], [address] [place] [address] Creatinine [Mass/Vol] 0.51 mg/dL Normal 0.40-1.00 [facility] Comment on above: Result Comment: METH OD TRACEABLE TO IDMS STANDARD Performed By: #### C MED, CMP #### [facility] ([id number]) [address], [address] [place] [address] eGFR (CKD-EPI) NON-RACE DEPENDENT >90 Normal >59 [facility] Comment on above: Result Comment: Reported eGFR is based on the CKD-EPI 2020 equation that does not use a race coefficient. Performed By: #### C BCA, CMP #### [facility] ([id number]) [address], [address] [place] [address] Glucose [Mass/Vol] 100 mg/dL High 65-99 [facility] Comment on above: Performed By: #### C BCA, CMP #### [facility] ([id number]) [address], [address] [place] [address] Potassium [Moles/Vol] 3.4 mmol/L Low 3.5-5.0 [facility] Comment on above: Performed By: #### C BCA, CMP #### [facility] ([id number]) [address], [address] [place] [address] Protein [Mass/Vol] 6.2 g/dL Normal 6.0-8.0 [facility] Comment on above: Performed By: #### C BCA, CMP #### [facility] ([id number]) [address], [address] [place] [address] Sodium [Moles/Vol] 135 mmol/L Normal 134-146 [facility] Comment on above: Performed By: #### C BCA, CMP #### [facility] ([id number]) [address], [address] [place] [address] Urea nitrogen [Mass/Vol] 4 mg/dL Low 5-23 [facility] Comment on above: Performed By: #### C BCA, CMP #### [facility] ([id number]) [address] [address] [place] [address] CBC AND AUTO DIFFon 10-08-19 24 ABSOLUTE BASOPHIL 0.0 X10E9/L Normal 0.0-0.2 [facility] Comment on above: Performed By: #### C BCA, CMP #### [facility] ([id number]) [address], [address] [place] [address] ABSOLUTE NEUTROPHIL 4.9 X10E9/L Normal 1.5-6.6 [facility] Comment on above: Performed By: #### C BCA, CMP #### [facility] ([id number]) [address], [address] [place] [address] Basophils/100 WBC (Bld) 0.2 % Normal [facility] Comment on above: Performed By: #### C BCA, CMP #### [facility] ([id number]) [address] [address] [place] [address] Eosinophils (Bld) [#/Vol] 0.1 10*3/uL Normal 0.0-0.4 [facility] Comment on above: Performed By: #### C BCA, CMP #### [facility] ([id number]) [address] [address] [place] [address] Eosinophils/100 WBC (Bld) 1.3 % Normal [facility] Comment on above: Performed By: #### C BCA, CMP #### [facility] ([id number]) [address] [address] [place] [address] Erythrocyte distribution width (RBC) [Ratio] 16.5 % High 11.5-15.0 [facility] Comment on above: Performed By: #### C BCA, CMP #### [facility] ([id number]) [address] [address] [place] [address] Hematocrit (Bld) [Volume fraction] 35.8 % Normal 35-47 [facility] Comment on above: Performed By: #### C BCA, CMP #### [facility] ([id number]) [address] [address] [place] [address] Hemoglobin (Bld) [Mass/Vol] 12.1 g/dL Normal 11.7-15. 5 [facility] Comment on above: Performed By: #### C BCA, CMP #### [facility] ([id number]) [address] [address] [place] [address] Lymphocytes (Bld) [#/Vol] 1.3 10*3/uL Normal 1.0-3.5 [facility] Comment on above: Performed By: #### C BCA, CMP #### [facility] ([id number]) [address], [address] [place] [address] Lymphocytes/100 WBC (Bld) 18.8 % Normal [facility] Comment on above: Performed By: #### C BCA, CMP #### [facility] ([id number]) [address], [address] [place] [address] MCH (RBC) [Entitic mass] 30.3 pg Normal 27-34 [facility] Comment on above: Performed By: #### C MED, CMP #### [facility] ([id number]) [address], [address] [place] [address] MCHC (RBC) [Mass/Vol] 33.7 g/dL Normal 32-36 [facility] Comment on above: Performed By: #### C MED, CMP #### [facility] ([id number]) [address], [address] [place] [address] MCV (RBC) [Entitic vol] 90 fL Normal 80-100 [facility] Comment on above: Performed By: #### C MED, CMP #### [facility] ([id number]) [address], [address] [place] [address] Monocytes (Bld) [#/Vol] 0.4 10*3/uL Normal 0-0.9 [facility] Comment on above: Performed By: #### C BCA, CMP #### [facility] ([id number]) [address], [address] [place] [address] Monocytes/100 WBC (Bld) 5.3 % Normal [facility] Comment on above: Performed By: #### C BCA, CMP #### [facility] ([id number]) [address], [address] [place] [address] Neutrophils/100 WBC (Bld) 74.4 % Normal [facility] Comment on above: Performed By: #### C BCA, CMP #### [facility] ([id number]) [address], [address] [place] [address] Platelet mean volume (Bld) [Entitic vol] 8.6 fL Normal 7-12 [facility] Comment on above: Performed By: #### C BCA, CMP #### [facility] ([id number]) [address], [address] [place] [address] Platelets (Bld) [#/Vol] 161 10*3/uL Normal 150-450 [facility] Comment on above: Performed By: #### C BCA, CMP #### [facility] ([id number]) [address], [address] [place] [address] RBC COUNT 3.98 X10E12/L Normal 3.80-5.20 [facility] Comment on above: Performed By: #### C BCA, CMP #### [facility] ([id number]) [address], [address] [place] [address] WBC (Bld) [#/Vol] 6.7 10*3/uL Normal 4.0-11.0 [facility] Comment on above: Performed By: #### C BCA, CMP #### [facility] ([id number]) [address], [address] [place] [address] COMPREHENSIVE METABOLIC PANE Alex 10-08-2023 Albumin [Mass/Vol] 3.7 g/dL Normal 3.2-5.3 [facility] Comment on above: Performed By: #### C BCA, CMP #### [facility] ([id number]) [address], [address] [place] [address] ALP [Catalytic activity/Vol] 79 U/L Normal 39-130 [facility] Comment on above: Performed By: #### C BCA, CMP #### [facility] ([id number]) [address], [address] [place] [address] ALT [Catalytic activity/Vol] 16 U/L Normal 0-31 [facility] Comment on above: Performed By: #### C BCA, CMP #### [facility] ([id number]) [address], [address] [place] [address] Anion gap [Moles/Vol] 9 mmol/L Normal 5-15 [facility] Comment on above: Performed By: #### C BCA, CMP #### [facility] ([id number]) [address], [address] [place] [address] AST [Catalytic activity/Vol] 15 U/L Normal 0-41 [facility] Comment on above: Performed By: #### C BCA, CMP #### [facility] ([id number]) [address], [address] [place] [address] Bilirubin [Mass/Vol] 0.4 mg/dL Normal 0.3-1.2 [facility] Comment on above: Performed By: #### C BCA, CMP #### [facility] ([id number]) [address], [address] [place] [address] Calcium [Mass/Vol] 8.4 mg/dL Low 8.5-10.5 [facility] Comment on above: Performed By: #### C BCA, CMP #### [facility] ([id number]) [address], [address] [place] [address] Chloride [Moles/Vol] 104 mmol/L Normal 98-109 [facility] Comment on above: Performed By: #### C BCA, CMP #### [facility] ([id number]) [address], [address] [place] [address] CO2 [Moles/Vol] 23 mmol/L Normal 22-32 [facility] Comment on above: Performed By: #### C BCA, CMP #### [facility] ([id number]) [address], [address] [place] [address] Creatinine [Mass/Vol] 0.44 mg/dL Normal 0.40-1.00 [facility] Comment on above: Result Comment: METH OD TRACEABLE TO IDMS STANDARD Performed By: #### C BCA, CMP #### [facility] ([id number]) [address], [address] [place] [address] eGFR (CKD-EPI) NON-RACE DEPENDENT >90 Normal >59 [facility] Comment on above: Result Comment: Reported eGFR is based on the CKD-EPI 2020 equation that does not use a race coefficient. Performed By: #### C BCA, CMP #### [facility] ([id number]) [address], [address] [place] [address] Glucose [Mass/Vol] 103 mg/dL High 65-99 [facility] Comment on above: Performed By: #### C BCA, CMP #### [facility] ([id number]) [address], [address] [place] [address] Potassium [Moles/Vol] 3.7 mmol/L Normal 3.5-5.0 [facility] Comment on above: Performed By: #### C BCA, CMP #### [facility] ([id number]) [address], [address] [place] [address] Protein [Mass/Vol] 6.3 g/dL Normal 6.0-8.0 [facility] Comment on above: Performed By: #### C BCA, CMP #### [facility] ([id number]) [address], [address] [place] [address] Sodium [Moles/Vol] 136 mmol/L Normal 134-146 [facility] Comment on above: Performed By: #### C BCA, CMP #### [facility] ([id number]) [address], [address] [place] [address] Urea nitrogen [Mass/Vol] 5 mg/dL Normal 5-23 [facility] Comment on above: Performed By: #### C BCA, [facility] #### [facility] ([id number]) [address] [place] [address], [address] [place] [address] RESP PATHOGENS/UDWN-TeK-7hw 10-08-2023 Respiratory pathogens DNA and RNA panel FREDYD+non-probe (Nph) SPECIMEN SOURCE NASO PHARYNX ADENOVIRUS Not [...] 2 Not detected (qualifier value) NOTE The [employer] Respiratory Panel 2.1 (RP2.1) is a multiplexed [...] patient with possible respiratory tract infection. Normal [facility] Comment on above: Performed By: #### 8 2159-5 #### [facility] ([id number]) [address] [address] CBC AND AUTO DIFFon 09-23-20 23 ABSOLUTE BASOPHIL 0.0 X10E9/L Normal 0.0-0.2 [facility] Comment on above: Performed By: #### C MED, 12757-2, 79600-2 #### [facility] ([id number]) [address] [address] ABSOLUTE NEUTROPHIL 4.1 X10E9/L Normal 1.5-6.6 [facility] Comment on above: Performed By: #### C MED, 14959-3, 19875-9 #### [facility] ([id number]) [address] [address] Basophils/100 WBC (Bld) 0.5 % Normal [facility] Comment on above: Performed By: #### C MED, 16272-4, 52567-5 #### [facility] ([id number]) [address] [address] Eosinophils (Bld) [#/Vol] 0.1 10*3/uL Normal 0.0-0.4 [facility] Comment on above: Performed By: #### Silvano JOVEL, 44589-4, 08504-2 #### [facility] ([id number]) [address], [address] [place] [address] Eosinophils/100 WBC (Bld) 1.6 % Normal [facility] Comment on above: Performed By: #### Silvano JOVEL, 06074-0, 35883-9 #### [facility] ([id number]) [address], [facility] [address] [place] [address] Erythrocyte distribution width (RBC) [Ratio] 15.5 % High 11.5-15.0 [facility] Comment on above: Performed By: #### Silvano JOVEL, 39164-5, 68578-0 #### [facility] ([id number]) [address], [facility] [address] [place] [address] Hematocrit (Bld) [Volume fraction] 32.8 % Low 35-47 [facility] Comment on above: Performed By: #### Silvano JOVEL, 60402-6, 77381-1 #### [facility] ([id number]) [address], [address] [place] [address] Hemoglobin (Bld) [Mass/Vol] 11.4 g/dL Low 11.7-15. 5 [facility] Comment on above: Performed By: #### Silvano JOVEL, 75413-9, 34445-3 #### [facility] ([id number]) [address], [facility] [address] [place] [address] Lymphocytes (Bld) [#/Vol] 1.7 10*3/uL Normal 1.0-3.5 [facility] Comment on above: Performed By: #### Silvano JOVEL, 97087-3, 59858-1 #### [facility] ([id number]) [address], [address] [place] [address] Lymphocytes/100 WBC (Bld) 26.9 % Normal [facility] Comment on above: Performed By: #### Silvano JOVEL, 18571-4, 80395-1 #### [facility] ([id number]) [address], [address] [place] [address] MCH (RBC) [Entitic mass] 31.1 pg Normal 27-34 [facility] Comment on above: Performed By: #### Silvano JOVEL, 15103-2, 22567-8 #### [facility] ([id number]) [address], [address] [place] [address] MCHC (RBC) [Mass/Vol] 34.7 g/dL Normal 32-36 [facility] Comment on above: Performed By: #### Silvano JOVEL, 35690-7, 06278-2 #### [facility] ([id number]) [address], [address] [place] [address] MCV (RBC) [Entitic vol] 90 fL Normal 80-100 [facility] Comment on above: Performed By: #### Silvano JOVEL, 07805-9, 48096-2 #### [facility] ([id number]) [address], [address] [place] [address] Monocytes (Bld) [#/Vol] 0.5 10*3/uL Normal 0-0.9 [facility] Comment on above: Performed By: #### Silvano JOVEL, 71827-5, 34715-1 #### [facility] ([id number]) [address], [address] [place] [address] Monocytes/100 WBC (Bld) 7.2 % Normal [facility] Comment on above: Performed By: #### Silvano JOVEL, 69203-3, 51879-2 #### [facility] ([id number]) [address], [address] [place] [address] Neutrophils/100 WBC (Bld) 63.8 % Normal [facility] Comment on above: Performed By: #### Silvano JOVEL, 97817-6, 02092-4 #### [facility] ([id number]) [address], [address] [address] Platelet mean volume (Bld) [Entitic vol] 8.8 fL Normal 7-12 [facility] Comment on above: Performed By: #### Silvano JOVEL, 65914-2, 94606-4 #### [facility] ([id number]) [address], [facility] [address] [place] [address] Platelets (Bld) [#/Vol] 178 10*3/uL Normal 150-450 [facility] Comment on above: Performed By: #### Silvano JOVEL, 08353-7, 02881-8 #### [facility] ([id number]) [address], [address] [address] RBC COUNT 3.66 X10E12/L Low 3.80-5.20 [facility] Comment on above: Performed By: #### Silvano JOVEL, 03277-5, 50567-9 #### [facility] ([id number]) [address], [address] [address] WBC (Bld) [#/Vol] 6.5 10*3/uL Normal 4.0-11.0 [facility] Comment on above: Performed By: #### Silvano JOVEL, 76247-0, 20896-8 #### [facility] ([id number]) [address], [address] [place] [address] HIV 1+2 Ab+HIV1 p24 Ag IA Ql on 09-23-2023 HIV 1 and 2 Ab/Ag Screen Non-Reactive Normal NRCT [facility] Comment on above: Result Comment: This [...] test results or diagnoses. Performed By: #### C MED, 84211-3, 61804-1 #### [facility] ([id number]) [address] [address] T. pallidum IgG+IgM IA Ql (S )on 09-23-2023 Syphilis Total <0.2 Normal 0.0-0.8 [facility] Comment on above: Result Comment: NON REACTIVE No serologic evidence of infection to Treponema pallidum (syphilis). Repeat testing may be considered in patients with suspected acute or primary syphilis in 2 to 4 weeks. Performed By: #### Silvano JOVEL, 28640-4, 88588-4 #### [facility] ([id number]) [address] [address] Glucose 1 Hr post dose gluco se [Mass/Vol]on 09-21-2023 1ST HR GTT 105 mg/dL Low 120-170 [facility] Comment on above: Performed By: #### 2 0438-8 #### [facility] ([id number]) [address] [address] CBC AND AUTO DIFFon 09-16-20 ABSOLUTE BASOPHIL 0.0 X10E9/L Normal 0.0-0.2 [facility] Comment on above: Performed By: #### C BCA #### [facility] ([id number]) [address] [place] [address] ABSOLUTE NEUTROPHIL 3.8 X10E9/L Normal 1.5-6.6 [facility] Comment on above: Performed By: #### Silvano BCA #### [facility] ([id number]) [address] [place], [place] [address], [place] [address] Basophils/100 WBC (Bld) 0.2 % Normal [facility] Comment on above: Performed By: #### C BCA #### [facility] ([id number]) [address], [address] [place] [address] Eosinophils (Bld) [#/Vol] 0.1 10*3/uL Normal 0.0-0.4 [facility] Comment on above: Performed By: #### C BCA #### [facility] ([id number]) [address], [address] [place] [address] Eosinophils/100 WBC (Bld) 1.6 % Normal [facility] Comment on above: Performed By: #### C BCA #### [facility] ([id number]) [address], [address] [place] [address] Erythrocyte distribution width (RBC) [Ratio] 14.8 % Normal 11.5-15.0 [facility] Comment on above: Performed By: #### C BCA #### [facility] ([id number]) [address], [address] [place] [address] Hematocrit (Bld) [Volume fraction] 32.5 % Low 35-47 [facility] Comment on above: Performed By: #### C BCA #### [facility] ([id number]) [address], [address] [place] [address] Hemoglobin (Bld) [Mass/Vol] 11.0 g/dL Low 11.7-15. 5 [facility] Comment on above: Performed By: #### C BCA #### [facility] ([id number]) [address], [address] [place] [address] Lymphocytes (Bld) [#/Vol] 1.7 10*3/uL Normal 1.0-3.5 [facility] Comment on above: Performed By: #### C BCA #### [facility] ([id number]) [address], [address] [place] [address] Lymphocytes/100 WBC (Bld) 28.2 % Normal [facility] Comment on above: Performed By: #### C BCA #### [facility] ([id number]) [address], [address] [place] [address] MCH (RBC) [Entitic mass] 29.6 pg Normal 27-34 [facility] Comment on above: Performed By: #### C BCA #### [facility] ([id number]) [address], [address] [place] [address] MCHC (RBC) [Mass/Vol] 34.0 g/dL Normal 32-36 [facility] Comment on above: Performed By: #### C BCA #### [facility] ([id number]) [address], [address] [place] [address] MCV (RBC) [Entitic vol] 87 fL Normal 80-100 [facility] Comment on above: Performed By: #### C BCA #### [facility] ([id number]) [address], [address] [place] [address] Monocytes (Bld) [#/Vol] 0.4 10*3/uL Normal 0-0.9 [facility] Comment on above: Performed By: #### C BCA #### [facility] ([id number]) [address], [address] [place] [address] Monocytes/100 WBC (Bld) 7.3 % Normal [facility] Comment on above: Performed By: #### C BCA #### [facility] ([id number]) [address], [address] [place] [address] Neutrophils/100 WBC (Bld) 62.7 % Normal [facility] Comment on above: Performed By: #### C BCA #### [facility] ([id number]) [address], [address] [place] [address] Platelet mean volume (Bld) [Entitic vol] 9.0 fL Normal 7-12 [facility] Comment on above: Performed By: #### C BCA #### [facility] ([id number]) [address], [address] [place] [address] Platelets (Bld) [#/Vol] 163 10*3/uL Normal 150-450 [facility] Comment on above: Performed By: #### C BCA #### [facility] ([id number]) [address], [address] [place] [address] RBC COUNT 3.73 X10E12/L Low 3.80-5.20 [facility] Comment on above: Performed By: #### C BCA #### [facility] ([id number]) [address], [address] [place] [address] WBC (Bld) [#/Vol] 6.0 10*3/uL Normal 4.0-11.0 [facility] Comment on above: Performed By: #### C BCA #### [facility] ([id number]) [address], [address] [place] [address] Alanine aminotransferase [En zymatic activity/volume] in Serum or PlasmaOrdered By: Mishel Dimas on 03-26-2023 ALT [Catalytic activity/Vol] 13 U/L 7-52 [facility] Albumin [Mass/volume] in Ser um or Plasma by Bromocresol green (BCG) dye binding methoOrdered By: Mishel Dimas on 03-26-2023 Albumin BCG dye [Mass/Vol] 4.8 g/dL 3.5-5.7 [facility] Alkaline phosphatase [Enzyma tic activity/volume] in Serum or PlasmaOrdered By: Mishel Dimas on 03-26-2023 ALP [Catalytic activity/Vol] 60 U/L 34-104 [facility] Aspartate aminotransferase [ Enzymatic activity/volume] in Serum or PlasmaOrdered By: Mishel Dimas on 03-26-2023 AST [Catalytic activity/Vol] 18 U/L 13-39 [facility] Basophils Auto (Bld) [#/Vol] Ordered By: Mishel Dimas on 03-26-2023 Basophils (Bld) [#/Vol] 0.0 10*3/uL 0.0-0.2 [facility] Basophils/100 WBC Auto (Bld) Ordered By: Mishel Dimas on 03-26-2023 Basophils/100 WBC (Bld) 0.4 % . [facility] Bilirubin.total [Mass/volume ] in Serum or PlasmaOrdered By: Mishel Dimas on 03-26-2023 Bilirubin [Mass/Vol] 0.5 mg/dL 0.3-1.0 [facility] Calcium [Mass/volume] in Ser um or PlasmaOrdered By: Mishel Dimas on 03-26-2023 Calcium [Mass/Vol] 9.5 mg/dL 8.6-10.3 [facility] Carbon dioxide, total [Moles /volume] in Serum or PlasmaOrdered By: Mishel Dimas on 03-26-2023 CO2 [Moles/Vol] 27.7 mmol/L 21.0-31.0 [facility] Chloride [Moles/volume] in S griffin or PlasmaOrdered By: Mishel Dimas on 03-26-2023 Chloride [Moles/Vol] 107 mmol/L 98-107 [facility] Complete Blood Count Auto Di ffon 03-26-2023 Basophils (Bld) [#/Vol] 0.0 10*3/uL Normal 0.0-0.2 [facility] Comment on above: Order Comment: Reaso n for Exam Wellness examination;Screening for metabolic disorder;Screen Result Comment: PERF ORMED BY: [place] [address] PATHOLOGIST QUALITY PROCESS AUDITOR ELYSE WHIPPLE M.D. Performed By: #### T SH3 wRFLX, CMP, CBC #### [facility] [address] Basophils/100 WBC (Bld) 0.4 % Normal . T darryl [facility] Comment on above: Order Comment: Reaso n for Exam Wellness examination;Screening for metabolic disorder;Screen Performed By: #### T SH3 wRFLX, CMP, CBC #### [facility] [address] Eosinophils (Bld) [#/Vol] 0.1 10*3/uL Normal 0.0-0.45 [facility] Comment on above: Order Comment: Reaso n for Exam Wellness examination;Screening for metabolic disorder;Screen Performed By: #### T SH3 wRFLX, CMP, CBC #### [facility] [address] Eosinophils/100 WBC (Bld) 2.7 % Normal . [facility] Comment on above: Order Comment: Reaso n for Exam Wellness examination;Screening for metabolic disorder;Screen Performed By: #### T SH3 wRFLX, CMP, CBC #### [address] Erythrocyte distribution width (RBC) [Ratio] 15.2 % Normal 11.9-15.3 [facility] Comment on above: Order Comment: Reaso n for Exam Wellness examination;Screening for metabolic disorder;Screen Performed By: #### T SH3 wRFLX, CMP, CBC #### [address] Hematocrit (Bld) [Volume fraction] 39.5 % Normal 34.0-46.4 [facility] Comment on above: Order Comment: Reaso n for Exam Wellness examination;Screening for metabolic disorder;Screen Performed By: #### T SH3 wRFLX, CMP, CBC #### [facility] [address] [place] [address] Hemoglobin (Bld) [Mass/Vol] 13.3 g/dL Normal 11.8-15. 4 [facility] Comment on above: Order Comment: Reaso n for Exam Wellness examination;Screening for metabolic disorder;Screen Performed By: #### T SH3 wRFLX, CMP, CBC #### [facility] [address] [place] [address] [place] Lymphocytes (Bld) [#/Vol] 1.4 10*3/uL Normal 1.00-4.8 [facility] Comment on above: Order Comment: Reaso n for Exam Wellness examination;Screening for metabolic disorder;Screen Performed By: #### T SH3 wRFLX, CMP, CBC #### [address] Lymphocytes/100 WBC (Bld) 35.6 % Normal . [facility] Comment on above: Order Comment: Reaso n for Exam Wellness examination;Screening for metabolic disorder;Screen Performed By: #### T SH3 wRFLX, CMP, CBC #### [address] MCH (RBC) [Entitic mass] 28.5 pg Normal 24.7-34.3 [facility] Comment on above: Order Comment: Reaso n for Exam Wellness examination;Screening for metabolic disorder;Screen Performed By: #### T SH3 wRFLX, CMP, CBC #### [address] MCV (RBC) [Entitic vol] 85.1 fL Normal 80-100 T [facility] Comment on above: Order Comment: Reaso n for Exam Wellness examination;Screening for metabolic disorder;Screen Performed By: #### T SH3 wRFLX, CMP, CBC #### [address] Mean Corpuscular HGB Conc 33.5 g/dL Normal 32.0-35.0 [facility] Comment on above: Order Comment: Reaso n for Exam Wellness examination;Screening for metabolic disorder;Screen Performed By: #### T SH3 wRFLX, CMP, CBC #### [address] Monocytes (Bld) [#/Vol] 0.2 10*3/uL Normal 0.0-0.8 [facility] Comment on above: Order Comment: Reaso n for Exam Wellness examination;Screening for metabolic disorder;Screen Performed By: #### T SH3 wRFLX, CMP, CBC #### [place] [address] [place] Monocytes/100 WBC (Bld) 5.3 % Normal . T darryl [facility] Comment on above: Order Comment: Reaso n for Exam Wellness examination;Screening for metabolic disorder;Screen Performed By: #### T SH3 wRFLX, CMP, CBC #### [facility] [address] Neutrophils (Bld) [#/Vol] 2.2 10*3/uL Normal 1.8-7.7 [facility] Comment on above: Order Comment: Reaso n for Exam Wellness examination;Screening for metabolic disorder;Screen Performed By: #### T SH3 wRFLX, CMP, CBC #### [facility] [address] Neutrophils/100 WBC (Bld) 56.0 % Normal . [facility] Comment on above: Order Comment: Reaso n for Exam Wellness examination;Screening for metabolic disorder;Screen Performed By: #### T SH3 wRFLX, CMP, CBC #### [facility] [address] NRBC% 0.3 /100{WBC} Normal 0-0.5 [facility] Comment on above: Order Comment: Reaso n for Exam Wellness examination;Screening for metabolic disorder;Screen Performed By: #### T SH3 wRFLX, CMP, CBC #### [facility] [address] Platelet mean volume (Bld) [Entitic vol] 9.4 fL Normal 6.3-10.7 [facility] Comment on above: Order Comment: Reaso n for Exam Wellness examination;Screening for metabolic disorder;Screen Performed By: #### T SH3 wRFLX, CMP, CBC #### [facility] [address] [place] [address] [place] Platelets (Bld) [#/Vol] 185 10*3/uL Normal 150-450 [facility] Comment on above: Order Comment: Reaso n for Exam Wellness examination;Screening for metabolic disorder;Screen Performed By: #### T SH3 wRFLX, CMP, CBC #### [facility] [address] [place] [id number] [place] RBC (Bld) [#/Vol] 4.65 10*6/uL Normal 3.60-5.00 [facility] Comment on above: Order Comment: Reaso n for Exam Wellness examination;Screening for metabolic disorder;Screen Performed By: #### T SH3 wRFLX, CMP, CBC #### [address] WBC (Bld) [#/Vol] 3.9 10*3/uL Normal 3.8-11.6 [facility] Comment on above: Order Comment: Reaso n for Exam Wellness examination;Screening for metabolic disorder;Screen Performed By: #### T SH3 wRFLX, CMP, CBC #### [address] Comprehensive Metabolic Pane [facility] 03-26-2023 Albumin [Mass/Vol] 4.8 g/dL Normal 3.5-5.7 [facility] Comment on above: Order Comment: Reaso n for Exam Wellness examination;Screening for metabolic disorder;Screen Performed By: #### T SH3 wRFLX, CMP, CBC #### [address] Albumin/Globulin [Mass ratio] 1.9 {ratio} Normal [facility] Comment on above: Order Comment: Reaso n for Exam Wellness examination;Screening for metabolic disorder;Screen Performed By: #### T SH3 wRFLX, CMP, CBC #### [place] [address] [place] ALP [Catalytic activity/Vol] 60 U/L Normal 34-104 [facility] Comment on above: Order Comment: Reaso n for Exam Wellness examination;Screening for metabolic disorder;Screen Performed By: #### T SH3 wRFLX, CMP, CBC #### [facility] [address] [place] [address] [place] ALT [Catalytic activity/Vol] 13 U/L Normal 7-52 [facility] Comment on above: Order Comment: Reaso n for Exam Wellness examination;Screening for metabolic disorder;Screen Performed By: #### T SH3 wRFLX, CMP, CBC #### [address] Anion gap [Moles/Vol] 9.8 mmol/L Normal 6.0-15.0 [facility] Comment on above: Order Comment: Reaso n for Exam Wellness examination;Screening for metabolic disorder;Screen Performed By: #### T SH3 wRFLX, CMP, CBC #### [address] AST [Catalytic activity/Vol] 18 U/L Normal 13-39 [facility] Comment on above: Order Comment: Reaso n for Exam Wellness examination;Screening for metabolic disorder;Screen Performed By: #### T SH3 wRFLX, CMP, CBC #### [address] Bilirubin [Mass/Vol] 0.5 mg/dL Normal 0.3-1.0 [facility] Comment on above: Order Comment: Reaso n for Exam Wellness examination;Screening for metabolic disorder;Screen Performed By: #### T SH3 wRFLX, CMP, CBC #### [place] [address] [place] Calcium [Mass/Vol] 9.5 mg/dL Normal 8.6-10.3 [facility] Comment on above: Order Comment: Reaso n for Exam Wellness examination;Screening for metabolic disorder;Screen Performed By: #### T SH3 wRFLX, CMP, CBC #### [place] [address] [place] Chloride [Moles/Vol] 107 mmol/L Normal 98-107 [facility] Comment on above: Order Comment: Reaso n for Exam Wellness examination;Screening for metabolic disorder;Screen Performed By: #### T SH3 wRFLX, CMP, CBC #### [facility] [address] [place] [address] [place] CO2 [Moles/Vol] 27.7 mmol/L Normal 21.0-31.0 [facility] Comment on above: Order Comment: Reaso n for Exam Wellness examination;Screening for metabolic disorder;Screen Performed By: #### T SH3 wRFLX, CMP, CBC #### [place] [address] [place] Creatinine [Mass/Vol] 0.74 mg/dL Normal 0.60-1.20 [facility] Comment on above: Order Comment: Reaso n for Exam Wellness examination;Screening for metabolic disorder;Screen Performed By: #### T SH3 wRFLX, CMP, CBC #### [facility] [address] [place] [address] [place] GFR/1.73 sq M.predicted MDRD (S/P/Bld) [Vol rate/Area] mL/min/{1.73_m2} Normal [facility] Comment on above: Order Comment: Reaso n for Exam Wellness examination;Screening for metabolic disorder;Screen Performed By: #### T SH3 wRFLX CMP, CBC #### [facility] [address] Globulin (S) [Mass/Vol] 2.5 g/dL Normal T [facility] Comment on above: Order Comment: Reaso n for Exam Wellness examination;Screening for metabolic disorder;Screen Performed By: #### T SH3 wRFLX, CMP, CBC #### [facility] [address] Glucose [Mass/Vol] 85 mg/dL Normal 70-100 [facility] Comment on above: Order Comment: Reaso n for Exam Wellness examination;Screening for metabolic disorder;Screen Result Comment: [facility] Glucose Reference Range is dependent on time and content of last meal. Glucose of more than 200 mg/dL in a nonstressed, ambulatory subject supports the diagnosis of Diabetes Mellitus. ADA recommended reference range Performed By: #### T SH3 wRFLX, CMP, CBC #### [facility] [address] [place] [address] [place] Potassium [Moles/Vol] 4.5 mmol/L Normal 3.5-5.1 [facility] Comment on above: Order Comment: Reaso n for Exam Wellness examination;Screening for metabolic disorder;Screen Performed By: #### T SH3 wRFLX, CMP, CBC #### [facility] [address] [place] [id number] [place] Protein [Mass/Vol] 7.3 g/dL Normal 6.4-8.9 [facility] Comment on above: Order Comment: Reaso n for Exam Wellness examination;Screening for metabolic disorder;Screen Performed By: #### T SH3 wRFLX, CMP, CBC #### [facility] [address] [place] [address] [place] Sodium [Moles/Vol] 140 mmol/L Normal 136-145 [facility] Comment on above: Order Comment: Reaso n for Exam Wellness examination;Screening for metabolic disorder;Screen Performed By: #### T SH3 wRFLX, CMP, CBC #### [facility] [address] Urea nitrogen [Mass/Vol] 13 mg/dL Normal 7-25 [facility] Comment on above: Order Comment: Reaso n for Exam Wellness examination;Screening for metabolic disorder;Screen Performed By: #### T SH3 wRFLX, CMP, CBC #### [facility] [address] [place] [address] [place] Creatinine [Mass/volume] in Serum or PlasmaOrdered By: Mishel Dimas on 03-26-2023 Creatinine [Mass/Vol] 0.74 mg/dL 0.60-1.20 [facility] Eosinophils Auto (Bld) [#/Vo l]Ordered By: Mishel Dimas on 03-26-2023 Eosinophils (Bld) [#/Vol] 0.1 10*3/uL 0.0-0.45 [facility] Eosinophils/100 WBC Auto (Bl d)Ordered By: Mishel Dimas on 03-26-2023 Eosinophils/100 WBC (Bld) 2.7 % . [facility] Erythrocyte distribution wid th Auto (RBC) [Ratio]Ordered By: Mishel Dimas on 03-26-2023 Erythrocyte distribution width (RBC) [Ratio] 15.2 % 11.9-15.3 [facility] Globulin Calc (S) [Mass/Vol] Ordered By: Misehl Dimas on 03-26-2023 Globulin (S) [Mass/Vol] 2.5 g/dL [facility] Glucose [Mass/volume] in Ser um or PlasmaOrdered By: Mishel Dimas on 03-26-2023 Glucose [Mass/Vol] 85 mg/dL 70-100 [facility] Comment on above: ADA recommended refe rence rangeRandom Glucose Reference Range is dependent on time and content of last meal. Glucose of more than 200 mg/dL in a nonstressed, ambulatory subject supports the diagnosis of Diabetes Mellitus. Hematocrit Auto (Bld) [Volum e fraction]Ordered By: Mishel Dimas on 03-26-2023 Hematocrit (Bld) [Volume fraction] 39.5 % 34.0-46.4 [facility] Hemoglobin [Mass/volume] in BloodOrdered By: Mishel Dimas on 03-26-2023 Hemoglobin (Bld) [Mass/Vol] 13.3 g/dL 11.8-15. 4 [facility] Leukocytes [#/volume] correc rigoberto for nucleated erythrocytes in Blood by Automated counOrdered By: Mishel Dimas on 03-26-2023 WBC corrected for nucl RBC Auto (Bld) [#/Vol] 3.9 10*3/uL 3.8-11.6 [facility] Lymphocytes Auto (Bld) [#/Vo l]Ordered By: Mishel Dimas on 03-26-2023 Lymphocytes (Bld) [#/Vol] 1.4 10*3/uL 1.00-4.8 [facility] Lymphocytes/100 WBC Auto (Bl d)Ordered By: Mishel Dimas on 03-26-2023 Lymphocytes/100 WBC (Bld) 35.6 % . [facility] MCH Auto (RBC) [Entitic mass ]Ordered By: Mishel Dimas on 03-26-2023 MCH (RBC) [Entitic mass] 28.5 pg 24.7-34.3 [facility] MCHC Auto (RBC) [Mass/Vol]Or dered By: Mishel Dimas on 03-26-2023 MCHC (RBC) [Mass/Vol] 33.5 g/dL 32.0-35.0 [facility] MCV Auto (RBC) [Entitic vol] Ordered By: Mishel Dimas on 03-26-2023 MCV (RBC) [Entitic vol] 85.1 fL 80-100 [facility] Monocytes Auto (Bld) [#/Vol] Ordered By: Mishel Dimas on 03-26-2023 Monocytes (Bld) [#/Vol] 0.2 10*3/uL 0.0-0.8 [facility] Monocytes/100 WBC Auto (Bld) Ordered By: Mishel Dimas on 03-26-2023 Monocytes/100 WBC (Bld) 5.3 % . [facility] Neutrophils Auto (Bld) [#/Vo l]Ordered By: Mishel Dimas on 03-26-2023 Neutrophils (Bld) [#/Vol] 2.2 10*3/uL 1.8-7.7 [facility] Neutrophils/100 WBC Auto (Bl d)Ordered By: Mishel Dimas on 03-26-2023 Neutrophils/100 WBC (Bld) 56.0 % . [facility] No Panel InformationOrdered By: Mishel Dimas on 03-26-2023 Estimated GFR (CKD-EPI) > 60.0 mL/Min [facility] Creatinine Clearance (Chem N/A [facility] Nucleated erythrocytes [Pres ence] in Blood by Automated countOrdered By: Mishel Dimas on 03-26-2023 Nucleated RBC Auto Ql (Bld) 0.3 /100{WBC} 0-0.5 [facility] Platelet mean volume Auto (B ld) [Entitic vol]Ordered By: Mishel Dimas on 03-26-2023 Platelet mean volume (Bld) [Entitic vol] 9.4 fL 6.3-10.7 [facility] Platelets Auto (Bld) [#/Vol] Ordered By: Mishel Dimas on 03-26-2023 Platelets (Bld) [#/Vol] 185 10*3/uL 150-450 [facility] Potassium [Moles/volume] in Serum or PlasmaOrdered By: Mishel Dimas on 03-26-2023 Potassium [Moles/Vol] 4.5 mmol/L 3.5-5.1 [facility] Protein [Mass/volume] in Ser um or PlasmaOrdered By: Mishel Dimas on 03-26-2023 Protein [Mass/Vol] 7.3 g/dL 6.4-8.9 [facility] RBC Auto (Bld) [#/Vol]Ordere d By: Mishel Dimas on 03-26-2023 RBC (Bld) [#/Vol] 4.65 10*6/uL 3.60-5.00 [facility] Serum or plasma albumin/glob ulin mass ratioOrdered By: Mishel Dimas on 03-26-2023 Albumin/Globulin [Mass ratio] 1.9 {ratio} [facility] Serum or plasma anion gap de terminationOrdered By: Mishel Dimas on 03-26-2023 Anion gap [Moles/Vol] 9.8 mmol/L 6.0-15.0 [facility] Sodium [Moles/volume] in Ser um or PlasmaOrdered By: Mishel Dimas on 03-26-2023 Sodium [Moles/Vol] 140 mmol/L 136-145 [facility] Thyroid Stim Hormone w/Rflxo n 03-26-2023 Thyroid Stim Hormone w/Rflx 1.38 u[iU]/mL Normal 0.45- 5.33 [facility] Comment on above: Order Comment: Reaso n for Exam Wellness examination;Screening for metabolic disorder;Screen Result Comment: PERF ORMED BY: [place] [address] PATHOLOGIST QUALITY PROCESS AUDITOR ELYSE WHIPPLE M.D. Performed By: #### T SH3 wRFLX, CMP, CBC #### [address] Thyrotropin [Units/volume] i n Serum or PlasmaOrdered By: Mishel Dimas on 03-26-2023 TSH Qn 1.38 m[IU]/L 0.45-5.33 [facility] Urea nitrogen [Mass/volume] in Serum or PlasmaOrdered By: Mishel Dimas on 03-26-2023 Urea nitrogen [Mass/Vol] 13 mg/dL 7-25 [facility] WBC Auto (Bld) [#/Vol]Ordere d By: Mishel Dimas on 03-26-2023 WBC (Bld) [#/Vol] 3.9 10*3/uL 3.8-11.6 [facility] Coding Summaryon 07-25-2022 Coding Summary HTMLBase 64 SdcyrnmdELd5eXy+PG hlYWQ+ZK4ASIRsS38b dYEjnO1XG0uCVI6LUF VWUDNPGA2FEO2hsJM7 ZHloQ2NvyfYj QuuliDSsAW71OGa4QP Q2bIedLMvzgJ9edEBj S7t6OwLyAP70lX65FR puRKDdXlV9NcZiplaa bWFy M0vvSoRvsXSgPfb+PH RhYmxlIHdpZHRoPScx SYZhJbGlxJjhQB4dNv 9yZGVyLWNvbGxhcHNl OiBj k6slYKLyNMdsHS2ybK zvA5GmwNU1FWWam3x6 Yh55gWY+UMLaEKR1uD nuPKkds853IoEtj4ci IDM3 zQVnEMjaXEO3J34zc8 S3GUQpTVBlWQD5sXN6 bT7ksRrlqksbB4HpeM LjRmA0IOT3rYXthG4r bGln ldkmvU6cBsi+Q09ESU 4YGTNFJJ8IVhg6U9Pq PjwvdHI+LU17XTCvOO 63dZVihOYtr2kzhCc7 JzEw DLAgQQV3zElnEZfuy7 GnYWKnH44wsIIbm8R1 IGNvbGxhcHNlOyBlbX M4gZ1nMQxigwgah7xz dzsn Yqtza6giqz30nS09U5 9eSVwgNIUaVFG9YONj JTOvrJmxwl2xlQ5zJo 8+QLfpi2dxp3dvxCo4 IjIw QRDllbAusDjmRAB8x1 MgZs31V3BxyInab2Ba Lux7zp02iPAxy2O2cM U2YHopLLNkgC6hSGkw ZnQ6 NMXdMoDzgC27eWVyOU eaQa7yjLjgaOrzRD8d DRCqypynXEAakL1jNE IcgRGdgTknXQ0kZPZo bjtm u705JnGlRHY5TBHwpV JlE3VsjB4rFkAtYICe VCPzT3ZkpCJmPSpdP4 52QRaeWpC2YDCyxmTc Y2Fs AOOdcHmxIcL3y6T0Yi 9Pl6CzftuvQNI1OPuv WQGwZgW9BdRpQqW6Y5 DyYgr0GKOfmIxcMS5x J3Bh UZBsawqcmhhxwTX8RH JmPLSihQ07vDRsNDrb Aa4dc6S7w631FASbNS LztY88Tj7lmEclNKMh dCBU sP1tizjln8xqoxphOn EiNYXwBBy2ASl5QXEo eIgdMgKsRQO6IfR7WD N7yADhhM6dlIvosrse dG9w Oyc+F78qeY1mBRJ1PF D6fnvtVEPpwtOxER86 SJ36S9LzOmgnxRKofQ U+CSOdmgOcmLerOB6m YmFj m0zxx7XrKQfwG8LbFO XaXVknUgf4NEIqRLJ3 tEG5wB9sOPEwBLqwu1 E1fLY0B2AmpnOldf6x b2xs JRHnKZbgE55dcUIgf7 D6ENNjuDP8UCWnrOca KlKnlN17Wid+PGNvbG eny8HoEcwry3bwa0jj dGg9 IjMwJSIgdmFsaWduPS E0e7RtLj12A84uQDfd ZHRoPSIxNSUiIHZhbG napx8uaA0eXt4+PGNv bCB3 hAC5cR4nWCBfYkQ1JF mfQ167YgJvoUFtSgnh g1lhl2aljZc3JcMwQW CboxUjsSokPGE7v6Bo Lz48 M28kKUcmAGTsJITlJH OyNJObtWlqns6cpC0r Ii8+PV3ci3wzcv43pY 48dHI+TLIbJGE0jZaq PSdw DAGdoY6tIPweGvH4SI DzWrJpiW05mDCwTEno Gg9kgSecbIpuNJ3zLM Nqzbblf066WkSuu1qv IDEw hZQgABbpUFH8C61fu4 M4KIAcLTMqMHK5xPU5 nK6fkYwacyxmaFYuaM sgdmVydGljYWwtYWxp Z246 IHRvcDsnPlBhdGllbn EkPbOaPAa1S1WcNnl6 YUPwdSikWE2udACjNB opEp4rhIsygUvfRP4i NTBp tkmbm420BdDil2ypOZ NpvPGyMVfyZZE5B14q w4G6JIQgUGNrZXK4xS S6vS6zgVfhywwjdZCj dDsg dmVydGljYWwtYWxpZ2 46IHRvcDsnPkJpcnRo VJTsqNK7NR94CC63wC Ncs9Y2lQE7J3MnIUZn bmct fiahfIP8JEBaRRFocY 25Nx1jfImyMu5fHXVt LKO7WTSvdIOmD6YjsT 2vFaWvVLZhVTZwE2Fp eHQt VWdnP368VUpsKlA7NS VtfxDxI0GcUUIksFae LiZ4o4Y0Vd4QY6Z3MQ 52QP29lTZfv5N6aCQ9 J3Bh GPXqwibmacbrkZL6CL YqPPNnaD89Yi3qcIix Wc5wPUNxRVA7VGUwsV EyD7PjcR8xCdWyBCBk MDAw A9EmnNUkOJutE493ZF ulYvQ8ASBddlLrS4Ws UDFieTyoSmW1p0J9Bz 6QHDs7SL27JA83gJZj c3R5 pXM1B7SeQUOofuzezp hvxPE3ISCgPGSobU48 Zd6dxZgeVy1rVVKbKL W4IMCghQCzI5TysK1u OiAj RKFvIPYeY4PslHRbIN smB035YCtwOaQ1VSWg hlJgL4DjZJIhmXkqSy G3y1G6Lz4LBOGuWF08 IFR5 qIQ2PW48SK94P0UuAy wvdGFibGU+PHRhYmxl IHdpZHRoPScxMDAlJy XmnVzfZY3iDg2hATKh LWNv bWgssBDuKyRkw8qoDN NePKnxLM9lqZneA1Ay vLN1VNVcg2j9Qe09W2 5hF3NcxTF+PGNvbCB3 aWR0 dB7cUkUfRiH7THgoE4 45HhYtkQMsHmtdt7qr w7nidVb6GnC8TWIztv ScjQcwFMQ9h1ZdTu18 Y29s IHdpZHRoPSIxNSUiIH OdxIlvay4fyH0yKr6+ TARimTP7xRG2jV9tAg DsMkO1XFdmL465VqUy cCIv Cykfn7wpb0nvnRq9Xq IwJSIgdmFsaWduPSJ0 w7OvXj61H9GwiMvbf9 MuLvt6ei66mLLbk8T6 bGU9 B3WxKHDblfyvtSCwbM xhMQ6nADOpunlqJITs eU6fWRCaZ3u6XxAaCo W8QVleF8XicbN2KDRt cHQg NVgbNDI6Z20pi9Z3BE ZaQBHbHSK9qJU0qY4f bGlnbjogbGVmdDsgdm VjpPfsNOodAGdoV266 IHRv yIqhWSTxvJ6mWMLkjC XrbOlyPG8eARWkolux EaYFWS3YSbtnLLFIRH YFOpSNBY3YVX17DX93 dGQg b4J8qUY0I4NiFGSvkr hatgmlfWI5LNSnZPQw dD40fZIcKDiyZs8ci8 Z1l996OGPrGYQvqS31 Zm9u bXkaIOFtpPQAgF6tir alx7pktqbmOpJmAFSo SXl8DCv3BONjzNanDa DgDAX5CmX9CXN6uGXp bC1h rRnutkjbxM1oUcj+MT EvMTMvMjAwMzwvdGQ+ QFWcUCJ3kDiyQLtmGL PegB7qQOHsW7k0VaNy LjA1 RYjkH0CrSSQdwhthDq 78aY7kYmLiIrY2NDsr Z7WffdD2PROegZKpLL xlKUQ2A79kh0Z5CCYr MDAw TPF3bLL7zR0fjFsqgv ogbGVmdDsgdmVydGlj IQjzEMggZ227YIUukZ lwHqC7RBbkQFPeXB26 ZD48 kBHjk0D2dRL7V4NzAV NjhmfiutgdtYH3YUDg QJRzkG19mYZdGXehQr 0bc2Y4v639QCRaTFAo aW47 Wg4qbTmcLSWwlYTRbF 4oarxpj0srnfbgDjRp WIDiLXg2MDf2ZLVbeW swGjMaHKO1NrM2IBJ3 aWNh fU0ixYdbpvtltQ0eAb c+TpGSNBtILN62AN45 gNLuz4Y4oWZ1A8DsJA EjzlqykogatEB0EUOq MDUw cF30jSJwXHmwUq4vu0 D4d045LEBzLMYpcD01 Ux1ouWokPEAxhXJEuY 2lbwslu3trjbrdHlUm MDAw GFm8SXf8ZRMcwOudVa KyZMN3HwB0UXF4oQEz nU9dkTxqrzrylX9oKm c+O8I2J5UpAqktfOE+ PC90 MZYjQR32hYNoaLQyl5 kriGh7ChFnBKZfLOU9 tGzbHNufi4UeKKJqV7 8yiBAud0A7DYDscBzl cHNl YxItjFK7qE9lXJifbm yxf2ijqfguAayzo2tt py24xT45V01cIJyjVU RoPSIzMCUiIHZhbGln bj0i cU4eWc1+LMQyoCI6mZ Q1oK4gBoKpSgI9BOxs I312WyVteEIsLqknm4 bve7jpxRl8FjJdSBJs dmFs nHogEHU5l5YoBf60F7 9sIHdpZHRoPSIyMCUi DYXbbGftin4joM7pEg 8+PB9qb5ikrb32yQ51 dHI+ CYVmMHT5sMtbRSktPX DwkV6dXCyfWxO9DDNo ToTojH84vERhSIejEy 3osIejcArgSF4xDJAe bjtm j572VrKax7fxSDDtcN PpAKtdNXQ5S44td7S0 INMhDGMvAHX1mXV6lU 1hbGlnbjogbGVmdDsg dmVy lTkxWSktGNkoB338ZW DugZbgFhRijGEnZ4ui uzOLOK5eYqkjoGX+PH VeKRC5hXhiAAsuGGPa aW5n CVBpP3r5EuMnKwT2IH fkX9LfgtZ8DCWzgWTn XIDjgKCHzQ9tumqsj7 xvcjogIzAwMDAwMDt0 ZXh0 WVMzrTteNbAgJIX7Hd F1FSX5yYDnkX2gcHbm xpestG3dGpe+RklOOj wvdGQ+JMKcNFH8gAjr PSdw SRVkrE9wUPCrP6s4Oo LwMpX6JIhcF7KkiyF1 IGJvbGQgMTBwdCBUaW 0iyxkzl9mmfardEhMr MDAw CIe6INa9KXImuBbnHx QgTAG9RuL8JLT5pFWu rZ1wtLwbhqlwoO7nLs c+TVJOOjwvdGQ+PHRk IHN0 rHwfFHzcPXZgsV7xPD MzG9g6UuEwNaP2TTju B2PgpzM6WOIfgTFuFU DovAPHgT9nwtplo3mq cjog QrUpPHJuFZa9MQg2WW UynAeeQkBkUOG2RiD0 CEB4wPZylP1giXfgwm wzqC1aJoz+XQB6QXO5 PC90 MI09U3UeSpzzaDLlxR U+PHRhYmxlIHdpZHRo PScxMDAlJyBzdHlsZT 9sEy5wAGAmXNMyoHmh cHNl OiB (more content not included)... [facility] Coding Summary HTMLBase 64 NifnjoocPRr4fZe+PG hlYWQ+ER2GJRKwN23w nXKtiY1HS4vSFE4EVK BUTPEFLD7XJB5ldCS0 AZokR0XoevTk WtuuyARtRJ40GFe4GR T0ePcrKNstrF6zyRPb L7k7BrFzIQ81zZ78VJ arOIGoQfV6LnCpoovm bWFy V0rhJpUssFTpNts+PH RhYmxlIHdpZHRoPScx ABApViDlcYraBF5lCd 9yZGVyLWNvbGxhcHNl OiBj a3nqCGJnQIzvHQ9fxO cpI6LhlLK8CLDeb6q6 Ag73gKM+MRMaGPI1bO orCVkiq857QtHod0yt IDM3 eSHdNLjjPOF7J42nj2 Y1AYTaJWGdVQR1yIF0 kH2udQhwrijqJ8VwnV EsZqP9CQG5eBOinV5f bGln kgqkyP5wNhk+Q09ESU 3DGZOMHH5NAzk5F0Kf PjwvdHI+IX48MSCbUC 89eTWftSPxc6ucpCf1 JzEw HVMpETY5tJpoVZfke8 NxIAVaB51erHGdj9M9 IGNvbGxhcHNlOyBlbX M5lN2nKRvqbhito4rz dzsn Eworj5xpvy95yI69A8 4oFBxxBFQhBIA9DWEl GVNanWbjnd8urE7iPp 8+ABomb1qew4nhkUn7 IjIw CDZaryWqsVzrQFR1j6 IcTr59P5HwgLiju5Op Rqi7ma87lXMqi4S5hI C9PQaxOTRvkB5qEHpr ZnQ6 GJUwXkRlgH97pILdQL gdBi4muGoowBafMH4p XLJlnetiFEVqqE6bPJ DriGYlnVtfPM6mBBVu bjtm n498DfDiWNT2KRJccO OdR0SvqP0mAiNwAKGb OTNfF3DkyALoRIoyY4 18CNzrQtZ1JODyjjQj Y2Fs EJNlhAljUbP1m4D1Mj 1Dx2MfpkycSXB5YEhp MOCiXlO1GaXtJuT6K2 FcTte6IQDoiTlpED0n J3Bh SNHkxqntjyqtsLW7FL AuGWLynT88vDJcCPkq Lq9xe1T1m596KDLvAI KlqE50Sf1onEfxATPy dCBU pV9mdncof6blbxxvDt IwWROnNZw9PSj4OQCp mAukDhLdZTV0ZnD2KN P3pNFgoZ7ybTildawj dG9w Oyc+E71oaD5jIGY1RW J0cvivJKRkhbAvBB20 DV89F8WcWsyczWXkvR U+KADforLbkEvcGZ4r YmFj n3tna8EdRKqiP8KyZX SvLAaoIwm7PZDkJWU3 xAL4jQ9vBOZmYOrch5 Q7uNL4W2ZoalTlqf6f b2xs WUJoSSzeX55ybRZmt6 I9GZTvtMY0CONiuMwr KyZdpO82Rka+PGNvbG oss0MoDmyfu7tkb0pl dGg9 IjMwJSIgdmFsaWduPS W1h6RfPs78E50rBMwl ZHRoPSIxNSUiIHZhbG qorq4gqA9tIk9+PGNv bCB3 oUV1wS7dKOCkXkD4TJ ktO576KjFiwBToDnkt d2pqi9wkvVu4NgAvSZ AqsrDtfMphVUZ6l7Qv Lz48 V31eKOyeIIWoZEAfXF BtVJPcfDdprq9gtI9i Ii8+GM0bl2dxxv94eP 48dHI+CTZcEOE9vVfj PSdw XHSzzW8yQUmcYiW5XG BkOrTqvZ67uURuUTeu Py6tlYxtfGzoTF9fJN Ruzmfxu713ZqSal8rf IDEw eJVrETzqOWJ2O52xn2 U0NGVcPZOwVCT4uKM2 aN7ggAhnjitwxHLgfJ sgdmVydGljYWwtYWxp Z246 IHRvcDsnPlBhdGllbn GxAaScLZd8G3OmEjw8 BZQrzRwsYC7moIPwZO icLp6peOclfQigYS3x NTBp gffsu484UpGiy4pbPB SygFPbLHzpBVS1Q91b o8Q8SASdFXXgPDR6sA B1bD2urCqucdmawSXo dDsg dmVydGljYWwtYWxpZ2 46IHRvcDsnPkJpcnRo EXVwxEV3WN78RH69xS Tag1U2iBB5H0HgTWLa bmct ibwqmTA8VIRdVHWicZ 25Fn8swSzhWx8xVIRr TTN4YAGrwLYcS6BqzE 6cRwNlFJVsRHRhT9Dm eHQt NRziE135ORxmFmA8CB DkxiGjH9ReMLPqtOkp FqK9j6N0Fp7BI0M3OC 53GI28eCUkg2F5qHZ9 J3Bh QETghthrufwghUJ9LY LaUKBixX43Wc5qpZgw Op6uFNAmGZO2KVZeaO QvH6QyzU0yDmRgMIEj MDAw J0PxoEMgBIvkY486FS ekRtD4BGNvxkYwJ6Ua LYXukWebJeJ2c0V7Ai 4LRGr4MP09JN54xGYp c3R5 nWH4Q0OqRMAjmzvyzb rahYZ3RQNaJNFvaG01 Mr2rvFlfYi0fIROgCN D3KLRasSFjM0WwlE2b OiAj AUHxIJGoJ3BrsWQxNC nkZ944AEyuNpX3UATw wkEuE0QxJWBecKgbRm D0w9W3Hp7UZFKzMH08 IFR5 lKR4ML07JX25I7AhOj wvdGFibGU+PHRhYmxl IHdpZHRoPScxMDAlJy DxeLnlLO0xDm6bZGWb LWNv pAzhlWDzEjVol7raMS GfXHrkDT4pwSyjI0Bn wPK3NPIsf5u5Bo81X0 6bV4AirRT+PGNvbCB3 aWR0 jT0nTsEtNdW0SHgvT2 53SsJsbOJzUgvlb5is m7rwgTk5XtA1VYDvod DfjBceCBR6t2IwWd37 Y29s IHdpZHRoPSIxNSUiIH ZknQlnev7tiI7xRu4+ HAWujTP8fSB0rV0lYy DuWhG1RUkdL664OvKk cCIv Eoyui7lct1vumSa1Kt IwJSIgdmFsaWduPSJ0 s3QlZl06V2NjcXdor9 VvKer4kx65vXSkb1T0 bGU9 L5PtMKPyueeebYWjxD wxJH0sPXGhqiioVKHz vR0wSGMiY7x3MgTbCk E8EJvrE6BzdgY0KEEa cHQg AGwgKLH1E58vn8N1UI PvXFBuXCO4tNM8jB7d bGlnbjogbGVmdDsgdm TpaZukRJauYXpoP460 IHRv aNayZCTxxB2fITIwoD FsqDsbNY3lGNHcdrll HqHPYD7PReanULKMUW OIVnGUIF7HGC63AP19 dGQg w0J9yKA2L7FaXSTrak gufecpyNR0EYMlDGBb dS79eUQbEIuxYf9tk1 O6l032ANRfUAAwzR19 Zm9u xWciLSVnsQXOiY7pqm mvb6uzlksyUlJdDMAp RRz4XNw0WNIafUmfPe TgRCE3EaI8QNO5hFNk bC1h gUpsgrsaoF1iMfy+MT EvMTMvMjAwMzwvdGQ+ JGKcOTQ7oOmdRTuwTS QseT8qHJBcX0z7RfZa LjA1 DUagP3UlXDFxqurpZk 12hU9yLtXvXjA8EPpa K8WpqoT3ONYypDLgVJ hjLVY1J93ay9G8JMVd MDAw YGI9uYR4yU3zgGhvwk ogbGVmdDsgdmVydGlj JZcnREkpO428GONwqI qiXjN0CMouPKRgZF24 ZD48 oTFyc3K2uDH3H4IeHX QywvzembvwaNI4GHDn DUVvuT63nJPxUUzvOv 4au9S1t304PTUgKAOo aW47 El9yqWqdETJrhZJTgX 3zdxwja1gbzqauYeIr OVDvCWg6KKp1INXrfK muEcBgZHO5PlS5BWB9 aWNh uZ4ujStlfevbkT5zIy c+WhHBADeLUX81TF73 lNGnq2E0bAB4I7UoEA OwaflupavagLO0POOb MDUw bN33jGXnMRlfAe1hw7 F4e615CKYqPYNtlG34 Vy5dfDppJCRdqNLMkF 1zqyael6bvygobSiXw MDAw UTt5VAt3AZChjJzaRm AwTUV6PbX4DJX9mFRr gJ3ruBucifjziR3mHh c+OU4kioaekiH6JN04 ZD48 A0ZpLjflfWYooJE+PH RhYmxlIHdpZHRoPScx RFYrKkNiwUyrEQ6bJt 9yZGVyLWNvbGxhcHNl OiBj d7ukAUDdXOcsPL7tzP vgU1OfzYT7GEVmo9e2 Sx09H39oQ3EnqUP+PG TrlMA6aDN4hL8nWyVd IiB2 CPayP167UpCtpGWaBa vlm5xdl4gjhPy9XcKf SAVhtuWbtGasNUW5e2 OeXc48E78tBMriHGJa PSIy IVNaDFJynZxfay8phX 9wIi8+WMSanOQ2qNO9 uC7yUyVeTdG4QFliM5 70RnOviKLaDahhQ88a Z3Jv dXA+SUSoDzj2RFQncY ghPW1waUYaKEmqFi4r QZS3LjGmQyBcRGxaE6 BhZGRpbmctcmlnaHQ6 IDAu NKFkbW82Qu0ycOnnFg 1iUCCtDJT3ETIodBHy G9JtxB0rGnIyVKDvQX ReZ4UexYPaMThvE198 IGxl XqX3UWTqvmCxF0MhEI HxkHmzYgE6v7I6Ar1V fTegtSQqEH4wUwMtNB k9O3MrVlg5GUHtfTee ZT0n aRTiWAycZw0pdRlasX uvBN1jLCHwelhsw855 PkEco0mrOBUvqNAwYT paWFO9C64oh1W8ZIXx MDAw RVD1lAC0dW8bySczow ogbGVmdDsgdmVydGlj YBkdIIgdG370VAZpfD ifOkDJJye5L9QiKev0 ZCBz vPaxNO6nzBBpVRlfMn 6ljWihyPpsOR0zJTBz xhxcy919PaEos8nuBD EwbBOxCQszWYH1R71u b3I6 HDHdEWRtIIB7iHJ2gR 1hbGlnbjogbGVmdDsg dmVydGljYWwtYWxpZ2 82CKPgiKtdBl1UIsg4 L3Rk Iid7RBWzxYxuSU1evD BrPIojPc5liFhaeGyp RF9vXKQcneulq460Qh Njc6xiTQIyoFAyYIzo ZXM7 Z07ag6K1WMIvNOMoZI S5yIU4wI1uyIhdxkip bGVmdDsgdmVydGljYW znPXkaX072MWXslAlm PlBh eWVyOjwvdGQ+PC90cj 01N5DlKislKdp8NCZx HML0lHF3iB1oVSOpZW iyq7Q6cIH0U6TnviBe ci1j b2x (more content not included)... Normal [facility] ED Clinical Summaryon 2021 ED Clinical Summary [facility] - Emergency Department [address] [place] [address] ED Clinical Summary PERSON INFORMATION Name: JOSELIN VALENZUELA Age: 16 Years Sex: FEMALE : 2005 MRN: Acct#: Visit Reason: Chest pain; CHEST PAIN, HEADACHE Arrival: 07/19/2022 20:06:01 Discharge: 07/19/2022 22:07:00 LOS: 000 02:01 Check In: 07/19/2022 20:06:01 Checkout: 22:07:00 Address: [address] [place] [address] PCP: MISHEL DIMAS PROVIDER INFORMATION Provider Role Assigned Unassigned Talat Hardy MD ED Provider 07/19/2022 20:07:54 Martha Almaguer RN ED Nurse 07/19/2022 20:21:39 VITALS INFORMATION Vital [...] stated that she did had gone to [place] today, and noted throughout the day, intermittently. [...] vaginal bleeding. Musculoskeletal symptoms: No Muscle pain, Hematologic/Lympha tic symptoms: Negative except as documented in HPI. Health Status Allergies: Allergic Reactions (Selected) No known allergies No Known Medication Allergies. Medications: (Selected) Documented Medications Documented [facility] Prescription: 0 Refill(s) ibuprofen: 0 Refill(s). Past [...] Problem lis (more content not included)... Normal [facility] ED Patient Summaryon 022 ED Patient Summary [facility] - Emergency Department [address] [place] [address] PATIENT DISCHARGE INSTRUCTIONS Patient Information Name: JOSELIN VALENZUELA Age: 16 Years Date of : 2005 Reason For Visit: Chest pain; CHEST PAIN, HEADACHE Arrival Time: 07/19/2022 20:06:01 Primary Care Physician: MISHEL DIMAS Attending Physician: Ahmet Moreno DO Comment: Visit Diagnosis: Diagnoses This Visit Abdominal pain, epigastric (R10.13) Acute chest pain (R07.9) Chest pain (00742774) Elevated blood pressure reading (R03.0) The Pharmacy at [facility] is open Friday through Friday from [...] alcohol and/or drug addiction problems; contact the [facility] 21/04 Crisis Hotline -Text 5AQJM to 619190. If you received any narcotics, sedation, or [...] legal documents With: Address: When: MISHEL DIMAS [address] [place] [address] Business (1) Within 3 to 5 days [...] and treatment you received today in the [facility] Emergency Department were for an urgent problem and are not intended as complete care. It is important for you to follow up with a doctor, nurse practitioner, or physician?s players assistant for ongoing care. If your symptoms [...] so we can reach you if necessary. [facility] Emergency Department has provided you with a complete list of medications post discharge. Please inform your transformer repairer/provider of your visit and for further instruction on these medications. Any specific questions regarding your chronic medications and dosages should be discussed with your primary care physician(s) and/or pharmacist. New Medications [id number], [address], [place] [id number], [phone] famotidine (famotidine 20 mg oral tablet) 1 [...] bpm Per (more content not included)... Normal [facility] Progress Note - Nurseon 10-2 Progress Note - Nurse Pt provided with both written and verbal discharge instructions as well as follow up information. Pt verbalizes understanding and denies further questions or needs. Pt changes into clothing independently and ambulates upon discharge without issues. [Electronically Signed on: 07/19/2022 22:06 EDT] ____ Tripp RNMartha [Verified on: 07/19/2022 22:06 EDT] ____ Tripp Martha PEREIRA Normal [facility] .Auto Diff 1on 07-19-2022 Auto Warren % 8 % Normal 1-12 [facility] Comment on above: Performed By: #### 1 [id number], [id number], 33276096, 6286430373, 1245691, 5913365, 5997046581, [id number] #### [facility] (DEFAULT) [address] [place] [address] 89717 Baso Abs# 0.0 x10 Normal 0.0-0.2 [facility] Comment on above: Performed By: #### 1 [id number], 3594796481, 74164743, 0096601502, 5238242, 0671824, 9572531152, 0541828479 #### [facility] (DEFAULT) [address] [place] [address] 28782 Basophils/100 WBC (Bld) 0.2 % Normal 0.2-2.0 [facility] Comment on above: Performed By: #### 1 [id number], 6556409929, 12586243, 2752018676, 0424709, 1176534, 3891968354, 4180774557 #### [facility] (DEFAULT) [address] [place] [address] 80595 Eos Abs# 0.1 x10 Normal 0.0-0.4 [facility] Comment on above: Performed By: #### 1 [id number], 1170369339, 74792845, 1575520138, 4404345, 4463720, 3749003276, 4539336050 #### [facility] (DEFAULT) [address] [place] [address] 13158 Eosinophils/100 WBC (Bld) 1.8 % Normal 0.9-4.0 [facility] Comment on above: Performed By: #### 1 [id number], 2329617961, 20159885, 4008159466, 1317744, 3131322, 2327925851, 2173924359 #### [facility] (DEFAULT) [address] [place] [address] 32422 Lymph Abs# 2.5 x10 Normal 1.3-2.9 [facility] Comment on above: Performed By: #### 1 137558928, 9504694358, 81182939, 8946388690, 7047658, 3094118, 6939326651, 5876226851 #### [facility] (DEFAULT) [address] [place] [address] 43130 Lymphocytes/100 WBC (Bld) 44 % Normal 14-48 [facility] Comment on above: Performed By: #### 1 [id number], 4477232518, 65843689, 7443498378, 7543200, 5720569, 5998150656, 2077841274 #### [facility] (DEFAULT) [address] [place] [address] 62472 Warren Abs# 0.4 x10 Normal 0.0-0.8 [facility] Comment on above: Performed By: #### 1 [id number], 7030580815, 64124210, 2708120016, 6558902, 6785586, 6999378594, 0684086944 #### [facility] (DEFAULT) [address] [place] [address] 92372 Neut Abs# 2.6 x10 Normal 1.5-9.2 [facility] Comment on above: Performed By: #### 1 408208458, 1432389790, 46973316, 0604285252, 2300626, 6361598, 0784333505, 5681116191 #### [facility] (DEFAULT) [address] [place] [address] 60288 Neutrophils/100 WBC (Bld) 47 % Normal 44-88 [facility] Comment on above: Performed By: #### 1 [id number], 7760651835, 90854513, 8961937322, 7335033, 9933559, 6849700097, 8189157809 #### [facility] (DEFAULT) [address] [place] [address] CBC w/ Auto Diffon Erythrocyte distribution width (RBC) [Ratio] 14.6 % Normal 11.5-15.0 [facility] Comment on above: Performed By: #### 1 [id number], 9153211001, 26306703, 2786737063, 6818953, 6992505, 8635754130, 4115914678 #### [facility] (DEFAULT) [address] [place] [address] Hematocrit (Bld) [Volume fraction] 40.2 % Normal 33.7-40.4 [facility] Comment on above: Performed By: #### 1 [id number], 6578845563, 30857984, 3729793991, 8819064, 2765984, 8179699521, 9780877018 #### [facility] (DEFAULT) [address] [place] [address] Hemoglobin (Bld) [Mass/Vol] 13.0 g/dL Normal 11.3-15. 9 [facility] Comment on above: Performed By: #### 1 [id number], 4523587436, 60572082, 0603152688, 9888185, 8173331, 8108564790, 1096002072 #### [facility] (DEFAULT) [address] [place] [address] Instr WBC 5.7 x10 Invalid Interpretation Code [facility] Comment on above: Performed By: #### 1 [id number], 4604524001, 81000850, 1533076042, 9999081, 0076593, 3356821639, 3633523463 #### [facility] (DEFAULT) [address] [place] [address] Man Diff? Auto Normal [facility] Comment on above: Performed By: #### 1 243376615, 8973860798, 40184371, 7273907120, 5546890, 2232262, 4438029051, 1762015219 #### [facility] (DEFAULT) [address] [place] [address] 68385 MCH (RBC) [Entitic mass] 27 pg Normal 24-34 [facility] Comment on above: Performed By: #### 1 378652267, 3864324021, 12481089, 7757252552, 5801076, 8727483, 5213278754, 9442533558 #### [facility] (DEFAULT) [address] [place] [address] MCHC (RBC) [Mass/Vol] 32 g/dL Normal 26-37 [facility] Comment on above: Performed By: #### 1 405406192, 1255916383, 14822714, 8297686471, 4807240, 7821267, 7374767821, 8474750113 #### [facility] (DEFAULT) [address] [place] [address] MCV (RBC) [Entitic vol] 84 fL Normal 81-100 [facility] Comment on above: Performed By: #### 1 500034640, 1790565446, 14922153, 7505557565, 5517419, 9682496, 4464238958, 0493261757 #### [facility] (DEFAULT) [address] [place] [address] Platelet 282 x10 Normal 138-427 [facility] Comment on above: Performed By: #### 1 613467543, 1493804555, 62066174, 9911273965, 9140797, 2403927, 6227295702, 3145249585 #### [facility] (DEFAULT) [address] [place] [address] 39548 Platelet mean volume (Bld) [Entitic vol] 10.7 fL High 6.3-10.2 [facility] Comment on above: Performed By: #### 1 322630050, 2676908553, 36154133, 1120645449, 9107709, 9175237, 9809820866, 0344413848 #### [facility] (DEFAULT) [address] [place] [address] RBC 4.78 x10 Normal 3.70-5.30 [facility] Comment on above: Performed By: #### 1 868848399, 6737682479, 42870111, 1801770420, 6110751, 1258134, 7202698286, 6976712118 #### [facility] (DEFAULT) [address] [place] [address] WBC 5.7 x10 Normal 3.5-10.5 [facility] Comment on above: Performed By: #### 1 017803405, 7403084900, 30438267, 8697510689, 6282129, 5380246, 3201054367, 2578314654 #### [facility] (DEFAULT) [address] [place] [address] Standardon 07-19-2022 eGFR Non AA >60 Invalid Interpretation Code [facility] Comment on above: Performed By: #### 1 [id number], 0484794322, 29110045, 6821476332, 2201464, 2979916, 8569297783, 9544793345 #### [facility] (DEFAULT) [address] [place] [address] eGFR AA >60 Invalid Interpretation Code [facility] Comment on above: Result Comment: Cork Cutter nicki Kidney disease could be indicated at eGFRs of less than 60 ml/min/1.73m2. Kidney Failure is indicated at less than 15 ml/min/1.73m2 Performed By: #### 1 029223043, 7475890770, 96389155, 7737166887, 2456830, 9663628, 4695378922, 0034986058 #### [facility] (DEFAULT) [address] [place] [address] Albumin [Mass/Vol] 4.5 g/dL Normal 3.5-5.0 [facility] Comment on above: Performed By: #### 1 [id number], 2114269346, 89312431, 4527296149, 8161070, 8732707, 9808536009, 7786439494 #### [facility] (DEFAULT) [address] [place] [address] Albumin/Globulin [Mass ratio] 1.3 {ratio} Low 1.4-2.6 [facility] Comment on above: Performed By: #### 1 [id number], 1290188962, 43996530, 3144214988, 6654546, 9459806, 4461743867, 4458886444 #### [facility] (DEFAULT) [address] [place] [address] Alk Phos 63 IU/L Normal 32-91 [facility] Comment on above: Performed By: #### 1 620318018, 2611870733, 23885474, 8875662093, 1508261, 7208517, 1850409986, 3428297734 #### [facility] (DEFAULT) [address] [place] [address] ALT [Catalytic activity/Vol] 15.0 U/L Normal 8.0-29.0 [facility] Comment on above: Performed By: #### 1 959755952, 7904114767, 10094254, 7422101102, 8697302, 1475711, 8845903447, 1248376338 #### [facility] (DEFAULT) [address] [place] [address] Anion gap [Moles/Vol] 12.0 mmol/L Normal 5.0-19.0 [facility] Comment on above: Performed By: #### 1 [id number], 0272901506, 51655434, 1082839899, 2844794, 2945798, 8792865230, 8920177083 #### [facility] (DEFAULT) [address] [place] [address] AST [Catalytic activity/Vol] 23 U/L Normal 14-37 [facility] Comment on above: Performed By: #### 1 [id number], 7996347105, 20443146, 9286392164, 4901109, 9099283, 8833302739, 9295976566 #### [facility] (DEFAULT) [address] [place] [address] Bili Total 0.7 mg/dL Normal 0.0-2.0 [facility] Comment on above: Performed By: #### 1 532971860, 2534188822, 29819077, 4907772417, 3436152, 3994539, 9042435332, 8503681724 #### [facility] (DEFAULT) [address] [place] [address] 82413 Calcium [Mass/Vol] 9.2 mg/dL Normal 8.9-10.3 [facility] Comment on above: Performed By: #### 1 354596194, 3060325738, 89640064, 2418022180, 8604061, 4994210, 5096668855, 1653101484 #### [facility] (DEFAULT) [address] [place] [address] 58946 Chloride [Moles/Vol] 106 mmol/L Normal 101-111 [facility] Comment on above: Performed By: #### 1 512026488, 9091377981, 56228439, 6978432077, 1703209, 8002033, 8367733873, 9677749206 #### [facility] (DEFAULT) [address] [place] [address] 08547 CO2 [Moles/Vol] 27 mmol/L Normal 21-32 [facility] Comment on above: Performed By: #### 1 405378853, 1413190987, 22739470, 7667747152, 6556049, 2584709, 2570608489, 3275868466 #### [facility] (DEFAULT) [address] [place] [address] 96580 Creatinine [Mass/Vol] 0.72 mg/dL Normal 0.30-1.00 [facility] Comment on above: Performed By: #### 1 [id number], 8328925793, 41655436, 6036377419, 0932736, 4860538, 3918059295, 5385175936 #### [facility] (DEFAULT) [address] [place] [address] 75685 Globulin (S) [Mass/Vol] 3.5 g/dL Normal 1.5-4.3 [facility] Comment on above: Performed By: #### 1 [id number], 7609948971, 91237680, 5681386474, 1409858, 7200208, 8519354930, 0537215922 #### [facility] (DEFAULT) [address] [place] [address] 27473 Glucose [Mass/Vol] 101.0 mg/dL Normal 56.0-144.0 [facility] Comment on above: Performed By: #### 1 [id number], 2848422076, 84129055, 7686356324, 7909174, 1116675, 9368694911, 4996055259 #### [facility] (DEFAULT) [address] [place] [address] 10145 Osmolality 281 mOsm/L Invalid Interpretation Code [facility] Comment on above: Performed By: #### 1 325103589, 4844607751, 93383918, 3023564096, 2191728, 4762898, 3491443661, 3861063373 #### [facility] (DEFAULT) [address] [place] [address] 63185 Potassium [Moles/Vol] 3.8 mmol/L Normal 3.6-5.1 [facility] Comment on above: Performed By: #### 1 [id number], 3479410839, 83802809, 5707153372, 3408691, 5546165, 1912993579, 3077469581 #### [facility] (DEFAULT) [address] [place] [address] 73861 Protein [Mass/Vol] 8.0 g/dL Normal 6.1-8.0 [facility] Comment on above: Performed By: #### 1 895934293, 7064133670, 64829204, 0514632174, 5584159, 9434221, 3762367310, 5259353377 #### [facility] (DEFAULT) [address] [place] [address] 38594 Sodium [Moles/Vol] 141.0 mmol/L Normal 136.0-144.0 [facility] Comment on above: Performed By: #### 1 374874196, 6116448989, 42461473, 5215800687, 2768429, 8529965, 3104814834, 4423958260 #### [facility] (DEFAULT) [address] [place] [address] 42185 Urea nitrogen [Mass/Vol] 11 mg/dL Normal 8-26 [facility] Comment on above: Performed By: #### 1 593493507, 1231581844, 50894019, 9624553697, 6627050, 2850310, 4790185522, 2558749246 #### [facility] (DEFAULT) [address] [place] [address] 77046 Urea nitrogen/Creatinine [Mass ratio] 15.0 mg/mg Normal 4.6-16.2 [facility] Comment on above: Performed By: #### 1 [id number], 8447941294, 66982248, 6663515161, 7566352, 0628170, 6250241014, 2221602818 #### [facility] (DEFAULT) [address] [place] [address] 83295 ED Note - Physicianon 2021 ED Note [...] stated that she did had gone to [place] today, and noted throughout the day, intermittently. [...] vaginal bleeding. Musculoskeletal symptoms: No Muscle pain, Hematologic/Lympha tic symptoms: Negative except as documented in HPI. Health Status Allergies: Allergic Reactions (Selected) No known allergies No Known Medication Allergies. Medications: (Selected) Documented Medications Documented [facility] Prescription: 0 Refill(s) ibuprofen: 0 Refill(s). Past [...] normal conjunctiv (more content not included)... Normal [facility] Extra Redon 07-19-2022 Tube Collected Yes Invalid Interpretation Code [facility] Comment on above: Performed By: #### 1 [id number], [id number], [id number], [id number], 0924223, 6429767, [id number], [id number] #### [facility] (DEFAULT) [address] [place] [address] Lipaseon 07-19-2022 Lipase Level 35.0 IU/L Normal 22.0-51.0 [facility] Comment on above: Performed By: #### 1 [id number], [id number], [id number], [id number], 3216666, 8429316, [id number], [id number] #### [facility] (DEFAULT) [address] [place] [address] 00749 Test Urine 1on U Preg Negative [facility] Comment on above: Performed By: #### 2 [id number], [id number] #### [facility] (DEFAULT) [address] [place] [address] 22821 U Preg Internal Control Pass Normal [facility] Comment on above: Performed By: #### 2 [id number], [id number] #### [facility] (DEFAULT) [address] [place] [address] 26455 TnI HSon 07-19-2022 Troponin I High Sensitivity 3 pg/mL Normal <=15 [facility] Comment on above: Result Comment: Male Baseline Delta 1Hr (Note pg/mL=ng/L) <20pg/mL 50-60% >20pg/mL 20% Female Baseline Delta 1Hr <15pg/mL 50-60% >15pg/mL 20% Other Baseline Delta 1Hr <18ng/mL 50-60% >18ng/mL 20% ([employer] Guidelines April 2018) Performed By: #### 1 [id number], [id number], 85592574, 8931171256, 5222444, 1623340, 9330536980, [id number] #### [facility] (DEFAULT) [address] [place] [address] 42948 UA w Micro, if Ind Standardo n 07-19-2022 Breakpoint UA [facility] Comment on above: Performed By: #### 1 [id number], [id number], 53945052, 3618948467, 1925276, 0322614, 6733312043, [id number] #### [facility] (DEFAULT) [address] [place] [address] 54990 Color (U) Yellow Normal [facility] Comment on above: Performed By: #### 1 [id number], [id number], 21571014, 5076513062, 4019674, 3270920, 8745137995, [id number] #### [facility] (DEFAULT) [address] [place] [address] 79267 Glucose (U) [Mass/Vol] Negative Normal [facility] Comment on above: Performed By: #### 1 [id number], [id number], 83150395, 5441011353, 6891677, 9814458, [id number], [id number] #### [facility] (DEFAULT) [address] [place] [address] 08058 Ketones Ql (U) Negative Normal [facility] Comment on above: Performed By: #### 1 [id number], [id number], 55027258, 8674856287, 5734265, 3187706, 3811042875, [id number] #### [facility] (DEFAULT) [address] [place] [address] Micro? Not Indicated Invalid Interpretation Code [facility] Comment on above: Result Comment: Resu lt created by rule GL_MAGR_ADD_UA_MICRO Result created by rule GL_MAGR_ADD_UA_MICRO Performed By: #### 1 [id number], 4684149064, 36146314, 5048374471, 4373265, 2814495, 6920425334, [id number] #### [facility] (DEFAULT) [address] [place] [address] 78068 UA Bilirubin Negative Normal [facility] Comment on above: Performed By: #### 1 [id number], [id number], 06126492, 6150778946, 6143558, 1351071, 2612061069, [id number] #### [facility] (DEFAULT) [address] [place] [address] UA Blood Negative Normal NEGATIVE [facility] Comment on above: Performed By: #### 1 [id number], 6394367970, 92000637, 7424968465, 8893807, 1188871, 7518475834, [id number] #### [facility] (DEFAULT) [address] [place] [address] UA Clarity CLEAR Normal CLEAR [facility] Comment on above: Performed By: #### 1 [id number], [id number], 11158158, 4244355808, 0263080, 5691840, 2552899316, 7431071689 #### [facility] (DEFAULT) [address] [place] [address] UA Leuk Est Negative Normal NEGATIVE [facility] Comment on above: Performed By: #### 1 [id number], [id number], [id number], [id number], [id number], [id number], [id number], [id number] #### [facility] (DEFAULT) [address] [place] [address] UA Nitrite Negative Normal NEGATIVE [facility] Comment on above: Performed By: #### 1 [id number], [id number], [id number], [id number], [id number], [id number] #### [facility] (DEFAULT) [address] [place] [address] UA pH 7.0 Normal 5-8 [facility] Comment on above: Performed By: #### 1 [id number], [id number], [id number], [id number], [id number] #### [facility] (DEFAULT) [address] [place] [address] UA Protein Negative Normal NEGATIVE [facility] Comment on above: Performed By: #### 1 [id number], [id number], [id number], [id number], [id number], [id number], [id number] #### [facility] (DEFAULT) [address] [place] [address] UA Spec Grav 1.020 Normal 1.001-1.035 [facility] Comment on above: Performed By: #### 1 [id number], [id number], [id number], [id number], [id number], [id number] #### [facility] (DEFAULT) [address] [place] [address] UA Urobilinogen 1.0 mg/dL Normal 0.2-1.0 [facility] Comment on above: Performed By: #### 1 [id number], [id number], [id number], [id number], [id number], [id number], [id number], [id number] #### [facility] (DEFAULT) [address] [place] [address] Urine Source Clean Catch Normal [facility] Comment on above: Performed By: #### 1 [id number], [id number], [id number], [id number], [id number], [id number], [id number], [id number] #### [facility] (DEFAULT) [address] [place] [address] Vital Signs Date Time Vital Sign Value Performing Clinician Facility 01-18-2025 16:27-0400 Body height 157.5 cm Jennifer Hemmer PA Work Phone: [facility] 01-18-2025 16:27-0400 Body mass index (BMI) [Ratio] 31.53 kg/m2 Jennifer Hemmer PA Work Phone: [facility] 01-18-2025 16:27-0400 Body weight 78.2 kg Jennifer Hemmer PA Work Phone: [facility] 01-18-2025 16:27-0400 Diastolic blood pressure 82 mm[Hg] Jennifer Hemmer PA Work Phone: [facility] 01-18-2025 16:27-0400 Heart rate 79 /min Jennifer Hemmer PA Work Phone: [facility] 01-18-2025 16:27-0400 Respiratory rate 16 /min Jennifer Hemmer PA Work Phone: [facility] 01-18-2025 16:27-0400 SaO2% (BldA) [Mass fraction] 99 % Jennifer Hemmer PA Work Phone: [facility] 04-22-2025 16:27-0400 Systolic blood pressure 124 mm[Hg] Jennifer Hemmer PA Work Phone: [facility] 07-08-2024 13:37-0400 Body mass index (BMI) [Ratio] 29.96 kg/m2 Luba Ellis PA Work Phone: [facility] 07-08-2024 13:37-0400 Body weight 74.3 kg Luba Isleta PA Work Phone: [facility] 07-08-2024 13:37-0400 Diastolic blood pressure 74 mm[Hg] Luba Ellis PA Work Phone: [facility] 07-08-2024 13:37-0400 Systolic blood pressure 110 mm[Hg] Luba Isleta PA Work Phone: [facility] 06-24-2024 10:06-0400 Body height 157.5 cm Jennifer Hemmer PA Work Phone: [facility] 06-24-2024 10:06-0400 Body mass index (BMI) [Ratio] 29.92 kg/m2 Jennifer Hemmer PA Work Phone: [facility] 06-24-2024 10:06-0400 Body weight 74.21 kg Jennifer Hemmer PA Work Phone: [facility] 06-24-2024 10:06-0400 Diastolic blood pressure 76 mm[Hg] Jennifer Hemmer PA Work Phone: [facility] 06-24-2024 10:06-0400 Heart rate 100 /min Jennifer Hemmer PA Work Phone: [facility] 06-24-2024 10:06-0400 Respiratory rate 17 /min Jennifer Hemmer PA Work Phone: [facility] 06-24-2024 10:06-0400 SaO2% (BldA) [Mass fraction] 97 % Jennifer Hemmer PA Work Phone: [facility] 06-24-2024 10:06-0400 Systolic blood pressure 110 mm[Hg] Jennifer Hemmer PA Work Phone: [facility] 06-22-2024 13:42-0400 Body mass index (BMI) [Ratio] 30.07 kg/m2 Davin Viktoria DO Work Phone: [facility] 06-22-2024 13:42-0400 Body weight 74.57 kg Davin Viktoria DO Work Phone: [facility] 06-22-2024 13:42-0400 Diastolic blood pressure 72 mm[Hg] Davin Viktoria DO Work Phone: [facility] 06-22-2024 13:42-0400 Systolic blood pressure 120 mm[Hg] Davin Viktoria DO Work Phone: [facility] 06-14-2024 11:14-0400 Body height 157.5 cm Davin Viktoria DO Work Phone: [facility] 06-14-2024 11:14-0400 Body mass index (BMI) [Ratio] 29.81 kg/m2 Davin Viktoria DO Work Phone: [facility] 06-14-2024 11:14-0400 Body weight 73.94 kg Davin Viktoria DO Work Phone: [facility] 06-14-2024 11:14-0400 Diastolic blood pressure 78 mm[Hg] Davin Viktoria DO Work Phone: [facility] 06-14-2024 11:14-0400 Systolic blood pressure 106 mm[Hg] Davin Viktoria DO Work Phone: [facility] 04-14-2024 12:31-0400 Body height 157.[address] [facility] 04-14-2024 12:31-0400 Body mass index (BMI) [Ratio] 29.5 kg/m2 [facility] 04-14-2024 12:31-0400 Body temperature 98.2 [degF] [facility] 04-14-2024 12:31-0400 Body weight 73.[address] [facility] 04-14-2024 12:31-0400 Diastolic blood pressure 80 mm[Hg] [facility] 04-14-2024 12:31-0400 Heart rate 102 /min [facility] 04-14-2024 12:31-0400 Respiratory rate 16 /min [facility] 04-14-2024 12:31-0400 SaO2% (BldA) [Mass fraction] 99 % [facility] 04-14-2024 12:31-0400 Systolic blood pressure 125 mm[Hg] [facility] 04-09-2024 11:23-0400 Diastolic blood pressure 87 mm[Hg] [facility] 04-09-2024 11:23-0400 Heart rate 74 /min [facility] 04-09-2024 11:23-0400 Respiratory rate 16 /min [facility] 04-09-2024 11:23-0400 SaO2% (BldA) [Mass fraction] 97 % [facility] 04-09-2024 11:23-0400 Systolic blood pressure 120 mm[Hg] [facility] 12-16-2023 13:15-0400 Body mass index (BMI) [Ratio] 30.12 kg/m2 [facility] 12-16-2023 13:15-0400 Body weight 74.[address] 12-16-2023 13:15-0400 Diastolic blood pressure 82 mm[Hg] [address] 12-16-2023 13:15-0400 Systolic blood pressure 122 mm[Hg] [address] 11-19-2023 10:31-0500 Body mass index (BMI) [Ratio] 30.91 kg/m2 [facility] 11-19-2023 10:31-0500 Body temperature 98.1 [degF] [facility] 11-19-2023 10:31-0500 Body weight 76.66 kg [facility] 11-19-2023 10:31-0500 Diastolic blood pressure 76 mm[Hg] [facility] 11-19-2023 10:31-0500 Systolic blood pressure 132 mm[Hg] [facility] 07-10-2023 14:30-0400 Body weight 69.85 kg Mishel Dimas Other [employer] Other 04-07-2023 14:30-0400 Diastolic blood pressure 83 mm[Hg] Mishel Dimas Other [employer] Other 04-07-2023 14:30-0400 Respiratory rate 18 /min Mishel Dimas Other [employer] Other 04-07-2023 14:30-0400 SaO2% (BldA) [Mass fraction] 99 % Mishel Dimas Other [employer] Other 04-07-2023 14:30-0400 Systolic blood pressure 135 mm[Hg] Mishel Dimas Other [employer] Other 07-31-2021 15:30-0400 Body height 160.02 cm Mishel Dimas Other [employer] Other 07-31-2021 15:30-0400 Body mass index (BMI) [Ratio] 22.67 kg/m2 Mishel Dimas Other [employer] Other 07-31-2021 15:30-0400 Body temperature 98.2 [degF] Mishel Dimas Other [employer] Other 07-31-2021 15:30-0400 Body weight 58.06 kg Mishel Dimas Other [employer] Other 07-31-2021 15:30-0400 Diastolic blood pressure 101 mm[Hg] Mishel Dimas Other [employer] Other 07-31-2021 15:30-0400 Respiratory rate 18 /min Mishel Dimas Other [employer] Other 07-31-2021 15:30-0400 SaO2% (BldA) [Mass fraction] 100 % Mishel Dimas Other [employer] Other 07-31-2021 15:30-0400 Systolic blood pressure 135 mm[Hg] Mishel Dimas Other [employer] Other Encounters Encounter Date Encounter Type Care Provider Facility Start: 01-18-2025 End: 01-18-2025 Office outpatient visit 25 minutes Jennifer LAU Work Phone: [facility] Comment on above: Weight gain (Primary Dx); Class 1 obesity without serious comorbidity with body mass index (BMI) of 31.0 to 31.9 in adult, unspecified obesity type; PCOS (polycystic ovarian syndrome); Family history of thyroid disease; Iron deficiency anemia due to chronic blood loss; Other fatigue Start: 01-18-2025 End: 01-18-2025 ambulatory JENNIFER HERRERA Not Available Start: 01-18-2025 End: 01-18-2025 Bamboo flowsheet Jennifer Herrera PA Work Phone: [facility] Start: 01-18-2025 End: 01-18-2025 Bamboo flowsheet Jennifer LAU Work Phone: [facility] Start: 08-20-2024 End: 08-27-2024 Clinisync Result Encounter Davin Viktoria DO Work Phone: [facility] Unsolicited Start: 08-20-2024 End: 08-27-2024 Clinisync Result Encounter Davin Viktoria DO Work Phone: [facility] Unsolicited Start: 08-13-2024 End: 08-14-2024 Clinisync Result Encounter Davin Viktoria DO Work Phone: [facility] Unsolicited Start: 08-13-2024 End: 08-14-2024 Clinisync Result Encounter Davin Viktoria DO Work Phone: [facility] Unsolicited Start: 07-08-2024 End: 07-08-2024 Patient encounter procedure Luba LAU Work Phone: [facility] Comment on above: Nexplanon removal; Encounter for routine checking of intrauterine contraceptive device (IUD) Start: 07-08-2024 End: 07-08-2024 ambulatory LUBA CORRAL Not Available Start: 06-24-2024 End: 06-24-2024 Bamboo flowsheet Jennifer LAU Work Phone: [facility] Start: 06-24-2024 End: 06-24-2024 Bamboo flowsheet Jennifer LAU Work Phone: [facility] Start: 06-24-2024 End: 06-24-2024 Office outpatient visit 15 minutes Jennifer LAU Work Phone: [facility] Comment on above: PCOS (polycystic ova emelia syndrome) (Primary Dx); Iron deficiency anemia due to chronic blood loss; Menorrhagia with irregular cycle Start: 06-24-2024 End: 06-24-2024 ambulatory JENNIFER HERRERA Not Available Start: 06-22-2024 End: 06-22-2024 Patient encounter procedure Davin Viktoria DO Work Phone: [facility] Comment on above: Encounter for IUD in sertion Start: 06-22-2024 End: 06-22-2024 ambulatory DAVIN VIKTORIA Not Available Start: 06-18-2024 End: 06-18-2024 Clinisync Result Encounter Davin Viktoria DO Work Phone: [facility] Unsolicited Start: 06-18-2024 End: 06-18-2024 Clinisync Result Encounter Davin Viktoria DO Work Phone: [facility] Unsolicited Start: 06-14-2024 End: 06-14-2024 Bamboo flowsheet Davin Viktoria DO Work Phone: [facility] Start: 06-14-2024 End: 06-14-2024 Bamboo flowsheet Davin Viktoria DO Work Phone: [facility] Start: 06-14-2024 End: 06-14-2024 Office outpatient visit 15 minutes Davin Viktoria DO Work Phone: [facility] Comment on above: Menorrhagia with reg ular cycle Start: 06-14-2024 End: 06-14-2024 ambulatory DAVIN VIKTORIA Not Available Start: 04-14-2024 End: 04-14-2024 ambulatory [facility] Work Phone: Start: 04-14-2024 End: 04-14-2024 Patient encounter procedure [facility] [place] Work Phone: Start: 04-09-2024 End: 04-09-2024 ambulatory [facility] Work Phone: Start: 04-09-2024 End: 04-09-2024 Encounter for general adult medical examination without abnormal findings [facility] Start: 04-09-2024 End: 04-09-2024 Patient encounter procedure [facility] Work Phone: Start: 02-03-2024 End: 02-03-2024 ambulatory MARCK CARLOS A Not Available Start: 01-02-2024 End: 01-02-2024 ambulatory Shivani Davina Facility:[facility] Start: 01-02-2024 End: 01-02-2024 ambulatory DO Mishel Dimas Work Phone: [facility] Work Phone: Start: 01-02-2024 End: 01-02-2024 Patient encounter procedure DO Mishel Dimas Work Phone: [facility]- Visit Work Phone: Start: 12-16-2023 End: 12-16-2023 ambulatory MISHEL Stark DAJUANBari [facility] Start: 12-16-2023 End: 12-16-2023 care visit [facility] Resident 2yr [facility] Comment on above: Encounter for postpa rtum visit (Primary Dx) Start: 12-06-2023 Encounter Mishel Torres sharifai DO Work Phone: [address] N[facility] Start: 12-04-2023 Encounter Mishel Torres rayelieserruthi DO Work Phone: [address] [facility] Start: 12-01-2023 Encounter Mishel hongruthi DO Work Phone: [address] [facility] Start: 11-28-2023 Encounter Mishel hongruthbari DO Work Phone: [address] NICU Start: 11-25-2023 Encounter Mishel hongruthi DO Work Phone: [address] NICU Start: 11-21-2023 Encounter Mishel salcido DO Work Phone: [address] NICU Start: 11-19-2023 End: 11-19-2023 ambulatory MISHEL READDENISHABari [facility] Start: 11-19-2023 End: 11-19-2023 Patient encounter procedure [facility] High Risk [facility] Comment on above: Surgical followup (P rimary Dx) Start: 11-18-2023 Encounter Mishel hongruthi DO Work Phone: [address] NICU Start: 11-17-2023 Encounter Mishel Torres rayelieserruthi DO Work Phone: [address] N[facility] Start: 11-15-2023 Encounter Mishel Melissa salcido DO Work Phone: [facility] N[facility] Start: 11-13-2023 End: 11-13-2023 Evaluation and management of inpatient MISHEL DIMAS [facility] Start: 11-06-2023 End: 11-07-2023 Evaluation and management of inpatient [facility] Start: 10-30-2023 End: 10-31-2023 Evaluation and management of inpatient [facility] Start: 10-23-2023 End: 10-24-2023 Evaluation and management of inpatient JAY JAY ARTHUR [facility] Start: 10-16-2023 End: 10-17-2023 Evaluation and management of inpatient [facility] Start: 10-09-2023 End: 10-10-2023 Evaluation and management of inpatient [facility] Start: 10-02-2023 End: 10-03-2023 Evaluation and management of inpatient [facility] Start: 09-24-2023 End: 09-25-2023 Evaluation and management of inpatient [facility] Start: 09-15-2023 End: 09-16-2023 Evaluation and management of inpatient [facility] Start: 09-08-2023 End: 09-09-2023 [facility] Start: 09-04-2023 End: 09-05-2023 Evaluation and management of inpatient [facility] Start: 08-28-2023 End: 11-13-2023 Evaluation and management of inpatient DEIRDRE ZUÑIGA [facility] Start: 04-07-2023 End: 04-07-2023 ambulatory Mishel Dimas Other [employer] Other Start: 04-07-2023 Encounter for genera l adult medical examination without abnormal findings Mishel Dimas [facility] Start: 04-07-2023 Periodic preventive med est patient 18-39 yrs Mishel Dimas [facility] Start: 03-26-2023 End: 03-26-2023 ambulatory Mishel Dimas Facility:[facility] Start: 03-26-2023 End: 03-26-2023 ambulatory DO Mishel Dimas Work Phone: [facility] Work Phone: Start: 03-26-2023 End: 03-26-2023 Patient encounter procedure DO Mishel Dimas Work Phone: [facility] [place] Work Phone: Start: 03-19-2023 End: 03-19-2023 ambulatory Mishel Dimas Other [employer] Other Start: 03-19-2023 Encounter for other specified special examinations Mishel Dimas [facility] Start: 03-19-2023 Telephone encounter Mishel Loo i [facility] Start: 08-06-2022 End: 08-06-2022 ambulatory Mishel Dimas Other [employer] Other Start: 08-06-2022 Telephone encounter Mishel Loo i [facility] Start: 07-29-2022 End: 07-29-2022 ambulatory Mishel Dimas Other [employer] Other Start: 07-29-2022 Telephone encounter Mishel Loo i [facility] Start: 07-22-2022 End: 07-22-2022 ambulatory Mishel Dimas Other [employer] Other Start: 07-22-2022 Telephone encounter Mishel Loo i [facility] Start: 07-19-2022 End: 07-20-2022 Emergency department patient visit Ahmet Moreno Facility:[facility] Start: 07-19-2022 End: 07-20-2022 ambulatory MISHEL DIMAS Facility:[facility] Start: 11-05-2021 End: 11-05-2021 ambulatory Mishel Dimas Other [employer] Other Start: 11-05-2021 Telephone encounter Misheljulián Rasheedruth candelaria [facility] Start: 07-31-2021 End: 07-31-2021 ambulatory Mishel Dimas Other [employer] Other Start: 07-31-2021 Office outpatient vi sit 25 minutes Mishel Judie [facility] Procedures Date Procedure Procedure Detail Performing Clinician Start: 08-20-2024 ALL DEHYDROEPIANDROSTERONE Davin Viktoria D O Work Phone: Start: 08-13-2024 ALL DHEA SULFATE Davin Viktoria DO Work Phone: Start: 07-08-2024 INTERNATIONAL ACCOUNTANT INSERTION/REMOVAL OF CONTRACEPTIVE CAPSULE Luba LAU Work Phone: Start: 06-22-2024 IUD INSERTION Davin Viktoria DO Work Phone: Start: 06-22-2024 Urine test visual color cmprsn meths Davin Viktoria DO Work Phone: Start: 06-18-2024 ALL CBC WITH AUTO DIFF Davin Viktoria DO Work Phone: Start: 04-14-2024 Quick Strep (POC) Start: 12-16-2023 care Care GIANNA FITZGERALD Start: 12-16-2023 Adult depression screening assessment [facility] 1[facility] Start: 11-19-2023 Adult depression screening assessment [facility] Risk Plan of Treatment Date Care Activity Detail Author Start: 09-23-2033 DTaP,Tdap and Td Vaccines (8 - Td or Tdap) DTaP,Tdap and Td Vaccines (8 - Td or Tdap) [facility] Start: 06-24-2025 End: 06-24-2025 Patient encounter procedure 06/24/2025 10:30 AM EDT Office Visit [facility] [address] [place] [address] Jennifer Herrera PA [address] [place] [address] [facility] Start: 05-30-2025 Influenza vaccination Influenz a Vaccine (Season Ended) [facility] Start: 03-22-2025 End: 03-22-2025 Patient encounter procedure 03/22/2025 11:00 AM EDT Office Visit [facility] [address] [place] [address] Davin Blum DO [address] [place], [place] [id number] [facility] Start: 01-18-2025 End: 01-18-2025 Patient encounter procedure 01/18/2025 4:30 PM EDT Office Visit [facility] [address] [place] [address] Jennifer Herrera PA [address] [place] [address] Arrived [facility] Comment on above: Arrived Start: 12-15-2024 Adult BMI Screening Adult BMI Screen ing [facility] Start: 12-15-2024 Depression Screening Depression Scre ening [facility] Start: 12-15-2024 Tobacco Screening Tobacco Screening [facility] Start: 11-19-2024 Adult BMI Screening Adult BMI Screen ing [facility] Start: 11-19-2024 Depression Screening Depression Scre ening [facility] Start: 11-19-2024 Tobacco Screening Tobacco Screening [facility] Start: 10-04-2024 Tobacco Screening Tobacco Screening [facility] Start: 09-15-2024 Adult BMI Screening Adult BMI Screen ing [facility] Start: 08-29-2024 Screening for Chlamy omaira trachomatis Chlamydia Screening [facility] Start: 07-08-2024 End: 07-08-2024 Patient encounter procedure 07/08/2024 1:30 PM EDT Procedure Visit [facility] [address] [place] [id number] Luba Corral PA [address] [place], [place] [id number] [facility] Start: 06-24-2024 End: 06-24-2024 Patient encounter procedure [facility] Comment on above: Arrived Start: 06-22-2024 End: 06-22-2024 Patient encounter procedure 06/22/2024 1:30 PM EDT Procedure Visit [facility] [address] [place] [address] Davin Blum DO [address] [place] [place], [place] [id number] [facility] Start: 06-14-2024 End: 06-14-2025 aPTT in Blood by Coagulation assay APTT Lab Routine Menorrhagia with regular cycle Expected: 06/14/2024 (Approximate), Expires: 06/14/2025 [facility] Comment on above: Expected: 06/14/2024 (Approximate), Expires: 06/14/2025 Start: 06-14-2024 End: 06-14-2025 DHEA DHEA Lab Routine Menorrhagia with regular cycle Expected: 06/14/2024 (Approximate), Expires: 06/14/2025 [facility] Comment on above: Expected: 06/14/2024 (Approximate), Expires: 06/14/2025 Start: 06-14-2024 End: 06-14-2025 US for US PELVIS-TRANSVAG IF INDICATED Imaging Routine Menorrhagia with regular cycle Expected: 06/14/2024 (Approximate), Expires: 06/14/2025 [facility] Comment on above: Expected: 06/14/2024 (Approximate), Expires: 06/14/2025 Start: 06-14-2024 End: 06-14-2024 Patient encounter procedure 06/14/2024 11:10 AM EDT Office Visit [facility] [address] [place] [address] Davin Blum DO [address] [place] [address] Arrived [facility] Comment on above: Arrived Start: 05-30-2024 Influenza vaccination Influenza Vacc ine (#1) [facility] Start: 12-16-2023 End: 12-16-2023 ambulatory 12/16/2023 1:30 PM EDT Visit [facility] [address] [place] [address] [facility] Start: 11-19-2023 End: 11-19-2023 Patient encounter procedure 11/19/2023 10:45 AM EST Office Visit [facility] [address] [place] [address] [facility] Start: 05-30-2023 COVID-19 Vaccine ( season) COVID-19 Vaccine ( season) [facility] Start: 2021 Adult BMI Follow Up Plan Adult BMI Follow Up Plan [facility] Start: 2015 [facility]3 [Mass/volume] in Serum or Plasma Vitamin D 25 hydroxy Total Lab Routine Weight gain PCOS (polycystic ovarian syndrome) Other fatigue Ordered: 01/18/2025 [facility] Work Phone: Comment on above: Ordered: 01/18/2025 CBC panel - Blood by Automated count CBC Lab Routine Iron deficiency anemia due to chronic blood loss Other fatigue Ordered: 01/18/2025 [facility] Comment on above: Ordered: 01/18/2025 CBC W Auto Different ial panel - Blood CBC and differential Lab Routine Menorrhagia with regular cycle Ordered: 06/14/2024 [facility] Comment on above: Ordered: 06/14/2024 DHEA-sulfate DHEA-sulfate Lab Routine Menorrhagia with regular cycle Ordered: 06/14/2024 [facility] Comment on above: Ordered: 06/14/2024 Follicle stimulating hormone Follicle stimulating hormone Lab Routine Menorrhagia with regular cycle Ordered: 06/14/2024 [facility] Comment on above: Ordered: 06/14/2024 hCG, quantitative, hCG, quantitative, Lab Routine Menorrhagia with regular cycle Ordered: 06/14/2024 [facility] Comment on above: Ordered: 06/14/2024 Hemoglobin A1c/Hemoglobin.total in Blood Hemoglobin A1c Lab Routine Menorrhagia with regular cycle Ordered: 06/14/2024 [facility] Comment on above: Ordered: 06/14/2024 Iron + transferrin + TIBC Iron + transferrin + TIBC Lab Routine Iron deficiency anemia due to chronic blood loss Other fatigue Ordered: 01/18/2025 [facility] Comment on above: Ordered: 01/18/2025 Luteinizing hormone Luteinizing hormone Lab Routine Menorrhagia with regular cycle Ordered: 06/14/2024 [facility] Comment on above: Ordered: 06/14/2024 Prothrombin time (PT ) in Blood by Coagulation assay Protime-INR Lab Routine Menorrhagia with regular cycle Ordered: 06/14/2024 [facility] Work Phone: Comment on above: Ordered: 06/14/2024 Thyrotropin [Units/volume] in Serum or Plasma TSH Lab Routine Menorrhagia with regular cycle Ordered: 06/14/2024 [facility] Comment on above: Ordered: 06/14/2024 Thyroxine (T4) free [Mass/volume] in Serum or Plasma T4, free Lab Routine Menorrhagia with regular cycle Ordered: 06/14/2024 [facility] Comment on above: Ordered: 06/14/2024 TSH W/REFLEX TO FT4 TSH W/REFLEX TO FT4 Lab Routine Weight gain Family history of thyroid disease Other fatigue Ordered: 01/18/2025 [facility] Comment on above: Ordered: 01/18/2025 [facility] Immunizations Immunization Date Immunization Notes Care Provider Gordon winter 09-23-2023 tetanus toxoid, redu stanislaw diphtheria toxoid, and acellular pertussis vaccine, adsorbed Mishel Dimas DO Work Phone: [phone] 09-22-2023 influenza, injectabl e, quadrivalent, preservative free Mishel Dimas DO Work Phone: [facility] 09-22-2023 influenza virus vaccine, unspecified formulation Davin Blum DO Work Phone: [facility] 05-07-2021 meningococcal polysaccharide (groups A, C, Y and W-135) diphtheria toxoid conjugate vaccine (MCV4P) Mishel Dimas Other [facility] 03-28-2020 tetanus toxoid, redu stanislaw diphtheria toxoid, and acellular pertussis vaccine, adsorbed DO Mishel Dimas Work Phone: [facility] 04-08-2016 poliovirus vaccine, inactivated Mishel Dimas Other [employer] Other 04-08-2016 human papilloma viru s vaccine, quadrivalent Mishel Dimas Other [facility] 04-08-2016 meningococcal polysaccharide (groups A, C, Y and W-135) diphtheria toxoid conjugate vaccine (MCV4P) Mishel Dimas Other [facility] 04-08-2016 measles, mumps and rubella virus vaccine Mishel Dimas Other [facility] 04-08-2016 poliovirus vaccine, unspecified formulation DO Mishel Dimas Work Phone: [facility] 04-08-2016 varicella virus vaccine Rajesh zuhair Dimas Other [facility] Payers Date Payer Category Payer Self-pay [id number] 2022 Unknown HUM [id number] 1 2017 [employer] [place] [facility] 1.2.8 [id number] 15 2017 [facility] [place] [id number] 2014 [employer] [place] [employer] [facility] CBKAN [id number] [id number] 2014 Unknown [id number] [id number] 2003 Unknown [id number] 2.16.84 0.1.955309.3.579.2.718 2003 Unknown [id number] 2.16.84 0.1.236966.3.579.2.718 2003 Unknown [id number] 2.16.8 40.1.022413.3.579.2.1285 2003 Unknown [id number] 2.16.8 40.1.520157.3.579.2.1285 2003 Unknown [id number] 2.16.8 40.1.092052.3.579.2.1285 2003 Unknown [id number] 2.16.8 40.1.835140.3.579.2.1285 2003 Unknown [id number] 2.16.8 40.1.779331.3.579.2.1286 2003 Unknown [id number] 2.16.8 40.1.070741.3.579.2.1285 2003 Unknown [id number] 2.16.8 40.1.107232.3.579.2.1285 2003 Unknown [id number] 2.16.8 40.1.349452.3.579.2.1285 2003 Unknown [id number] 2.16.8 40.1.548944.3.579.2.1285 2003 Unknown [id number] 2.16.8 40.1.718100.3.579.2.1285 2003 Unknown [id number] 2.16.8 40.1.707361.3.579.2.1286 2003 Unknown [id number] 2.16.8 40.1.159341.3.579.2.1286 2003 Unknown [id number] 2.16.8 40.1.559145.3.579.2.1286 2003 Unknown [id number] 2.16.8 40.1.425011.3.579.2.1286 2003 Unknown [id number] 2.16.8 40.1.426126.3.579.2.1286 2003 Unknown [id number] 2.16.84 0.1.121925.3.579.2.1259 2003 Unknown [id number] 2.16.84 0.1.431591.3.579.2.1259 2003 Unknown [id number] 2.16.84 0.1.118374.3.579.2.1259 2003 Unknown [id number] 2.16.84 0.1.295859.3.579.2.1259 2003 Unknown [id number] 2.16.84 0.1.124232.3.579.2.1259 2003 Unknown [id number] 2.16.84 0.1.851217.3.579.2.1259 Unknown [id number] 2.16.8 40.1.704099.3.579.2.531 Unknown [id number] 2.16.8 40.1.839268.3.579.2.531 Social History Date Type Detail Facility Start: 01-28-2024 End: 01-18-2025 Sex Assigned At [facility] Start: 11-02-2021 End: 06-04-2023 Tobacco smoking status NHIS Never smoked tobacco (finding) [facility] Start: 2003 Sex Assigned At Female [facility] Start: 06-04-2023 End: 08-28-2023 Tobacco use and exposure Smokeless tobacco non-user [facility] Start: 07-08-2024 End: 01-18-2025 Alcoholic beverage intake Lifetime non-drinker (finding) [facility] Start: 01-28-2024 End: 01-18-2025 History of Social function [facility] Do you belong to any clubs or organizations such as druze groups, unions, fraternal or athletic groups, or school groups? No [facility] How often do you att end meetings of the clubs or organizations you belong to? Patient declined [facility] Are you now , , , , never or living with a partner? Living with partner [facility] How often to you hav e a drink containing alcohol? Never [facility] Do you feel stress - tense, restless, nervous, or anxious, or unable to sleep at night because your mind is troubled all the time - these days [OSQ] Only a little [facility] (I/We) worried wheth er (my/our) food would run out before (I/we) got money to buy more. Never true [facility] Start: 06-04-2023 Alcohol Comment Caffeine: occasional chocolate [facility] Start: 2003 Sex assigned at Not on file [facility] Start: 11-12-2023 End: 12-16-2023 Alcohol intake Current non-drinker of alcohol (finding) [facility] Start: 08-28-2023 Gender identity Identifies as female gender (finding) [facility] Start: 08-28-2023 Sexual orientation Heterosexual (finding) [facility] Functional Status Date Assessment Result Facility 01-18-2025 Patient Health [facility] ionnaire 2 item (PHQ-2) [Reported] [facility] Clinical Notes 07-30-2017 to 01-18-2025 SID Hill - 01/18/2025 4:30 PM Ciarra Santacruz LPN - 07/08/2024 1:30 PM SID Nevarez - 06/24/2024 10:00 AM Jocelyn Irving LPN - 06/22/2024 1:30 PM EDT Note Date & Type Note Facility 01-18-2025 History of Presen t illness Narrative Images from the original note were not included. Subjective Patient ID: Joselin Valenzuela is a 19 y.o. female who presents for fatigue. Joselin is present today for evaluation of fatigue. She has also noticed weight gain over the past 4 months, don't feel like she used to, does not eat out a lot, eats healthy, cooks healthy dinners, stays active. She has a family history of hypothyroidism. Grills a lot, eats plenty of fruits and vegetables. Eats out maybe once a week. Eats a small lunch and a larger dinner. Does skip breakfast a lot. Does not drink pop. Mostly water and Gatorade. Doesn't feel good in her body right now. Weight gain is frustrating her. States has a lot going on with her kids, and school, does have some bad days, but states overall her mood is doing ok. Current Outpatient Medications on File Prior to Visit Medication Sig Dispense Refill [DISCONTINUED] etonogestrel-eluting 68 mg contraceptive implant 1 each by Implant route 1 (one) time [DISCONTINUED] FeroSul 325 (65 Fe) MG tablet Take 1 tablet by mouth every other day Current Facility-Administered Medications on File Prior to Visit Medication Dose Route Frequency Provider Last Rate Last Admin Levonorgestrel intrauterine device 52 mg 52 mg Intrauterine Continuous Davin Viktoria, DO 52 mg at 06/22/24 1346 I have reviewed and reconciled the history and medication list with the patient today. No Known Allergies Social History Tobacco Use Smoking status: Never Smokeless tobacco: Never Vaping Use Vaping status: Never Used Substance Use Topics Alcohol use: Never Comment: Caffeine: occasional chocolate Drug use: Never Family History Problem Relation Name Age of Onset Thyroid disease Sister Seizures Brother Ede Thyroid disease Maternal Grandmother Other (Pacemaker) Maternal Grandfather 31 Other (Epilepsy) Other Maternal brother Autism Other Maternal and paternal brothers Past Medical History: Diagnosis Date Abdominal cramping complicating , antepartum 06/24/2024 Anemia Antepartum bleeding, third trimester 06/24/2024 Irregular menses Ovarian cyst Polycystic ovary syndrome Type A blood, Rh positive Urinary tract infection UTI (urinary tract infection) 06/24/2024 Past Surgical History: Procedure Laterality Date ADENOIDECTOMY 2018 SECTION, LOW TRANSVERSE 11/11/2023 OTHER SURGICAL HISTORY 05/11/2020 nexplanon insertion VAGINAL DELIVERY 2019 , @ 35 weeks 10/05 Visit Vitals BP 124/82 Pulse 79 Resp 16 Ht 5' 2 Wt 172 lb 6.4 oz SpO2 99% BMI 31.53 kg/m OB Status Implant Smoking Status Never BSA 1.85 m Review of Systems Constitutional: Positive for fatigue and unexpected weight change (Weight gain). Negative for chills and fever. Respiratory: Negative for cough, shortness of breath and wheezing. Cardiovascular: Negative for chest pain, palpitations and leg swelling. Gastrointestinal: Negative for abdominal pain, constipation, diarrhea, nausea and vomiting. Skin: Negative for rash. Objective Physical Exam Constitutional: General: She is not in acute distress. Appearance: Normal appearance. She is well-developed. HENT: Head: Normocephalic and atraumatic. Eyes: General: No scleral icterus. Conjunctiva/sclera: Conjunctivae normal. Neck: Thyroid: No thyromegaly or thyroid tenderness. Cardiovascular: Rate and Rhythm: Normal rate and regular rhythm. Heart sounds: Normal heart sounds. No murmur heard. Pulmonary: Effort: Pulmonary effort is normal. No respiratory distress. Breath sounds: Normal breath sounds. No wheezing, rhonchi or rales. Musculoskeletal: Cervical back: Normal range of motion and neck supple. Skin: General: Skin is warm and dry. Neurological: General: No focal deficit present. Mental Status: She is alert and oriented to person, place, and time. Psychiatric: Mood and Affect: Mood normal. Behavior: Behavior normal. Assessment/Plan Diagnoses and all orders for this visit: Weight gain - Vitamin D 25 hydroxy Total - TSH W/REFLEX TO FT4 Will obtain some lab work for further evaluation at this time. Class 1 obesity without serious comorbidity with body mass index (BMI) of 31.0 to 31.9 in adult, unspecified obesity type Patient has gained 9 pounds since June. Encouraged pt to try smaller more frequent meals. Encouraged pt to continue to stay active. PCOS (polycystic ovarian syndrome) - Vitamin D 25 hydroxy Total Advised this condition is likely contributing to her weight gain at least to some extent. Is stable with the IUD and follows with Dr. Blum. Can consider Metformin in the future. Family history of thyroid disease - TSH W/REFLEX TO FT4 Will check TSH with upcoming labs. Iron deficiency anemia due to chronic blood loss - Iron + transferrin + TIBC - CBC H/o ALFREDITO. Will recheck with upcoming labs. Other fatigue - Vitamin D 25 hydroxy Total - TSH W/REFLEX TO FT4 - Iron + transferrin + TIBC - CBC See above. Follow up for Appointment As Scheduled. documented in this encounter [facility] 07-08-2024 History of Presen t illness Narrative [...] nursing note reviewed. Exam conducted with a kennel worker present. Vitals: Estimated body mass index is [...] of: SID Hernandez documented in this encounter [facility] 06-24-2024 History of Presen t illness Narrative Images from the original note were not included. Subjective Patient ID: Joselin Valenzuela is a 18 y.o. female who presents to become established Joselin is present today to become established. She has talked to her previous PCP about heavy bleeding, she has got labs done and found out she is anemic and taking iron pills, her bleeding did not get any better so she went to Dr. Blum and he put in the mirena. Mirena was put in on Friday and she does still have the Nexplanon in. She had a lot of cramping and pain after the Mirena and is still having cramping. Has not called [employer] d/t she had this appt and was waiting to see what your opinion is. Was told to come back and get rechecked, and planning to have Nexplanon removed at that visit. If she doesn't like the Mirena they would remove it and he would schedule surgery. States the pain is down to normal period cramping, takes Tylenol as needed. Can have periods that are two weeks long, bleeding down her legs etc. She and her decided for [facility] the [facility] that she was done having children, has had trouble with previous pregnancies. Is planning to have her tubes tied when she turns 19. Doesn't always take the iron regularly. Forgets to take it. Current Outpatient Medications on File Prior to Visit Medication Sig Dispense Refill etonogestrel-eluting 68 mg contraceptive implant 1 each by Implant route 1 (one) time FeroSul 325 (65 Fe) MG tablet Take 1 tablet by mouth every other day Current Facility-Administered Medications on File Prior to Visit Medication Dose Route Frequency Provider Last Rate Last Admin Levonorgestrel intrauterine device 52 mg 52 mg Intrauterine Continuous Davin Blum DO 52 mg at 06/22/24 5896 I have reviewed and reconciled the history and medication list with the patient today. No Known Allergies Social History Tobacco Use Smoking status: Never Smokeless tobacco: Never Vaping Use Vaping status: Never Used Substance Use Topics Alcohol use: Never Comment: Caffeine: occasional chocolate Drug use: Never Family History Problem Relation Name Age of Onset Other (Pacemaker) Maternal Grandfather 31 Other (Epilepsy) Other Maternal brother Autism Other Maternal and paternal brothers Seizures Brother Ede Past Medical History: Diagnosis Date Abdominal cramping complicating , antepartum 06/24/2024 Anemia Antepartum bleeding, third trimester 06/24/2024 Irregular menses Ovarian cyst Polycystic ovary syndrome Type A blood, Rh positive Urinary tract infection UTI (urinary tract infection) 06/24/2024 Past Surgical History: Procedure Laterality Date ADENOIDECTOMY 2018 SECTION, LOW TRANSVERSE 11/11/2023 OTHER SURGICAL HISTORY 05/11/2020 nexplanon insertion VAGINAL DELIVERY 2019 , @ 35 weeks 10/05 Visit Vitals BP 110/76 Pulse 100 Resp 17 Ht 5' 2 Wt 163 lb 9.6 oz LMP 05/23/2024 SpO2 97% BMI 29.92 kg/m OB Status Implant Smoking Status Never BSA 1.8 m Review of Systems Constitutional: Negative for chills, fatigue and fever. Respiratory: Negative for cough, shortness of breath and wheezing. Cardiovascular: Negative for chest pain, palpitations and leg swelling. Gastrointestinal: Positive for abdominal pain. Negative for constipation, diarrhea, nausea and vomiting. Genitourinary: Positive for menstrual problem. Skin: Negative for rash. Objective Physical Exam Constitutional: General: She is not in acute distress. Appearance: Normal appearance. She is well-developed. HENT: Head: Normocephalic and atraumatic. Eyes: General: No scleral icterus. Conjunctiva/sclera: Conjunctivae normal. Cardiovascular: Rate and Rhythm: Normal rate and regular rhythm. Heart sounds: Normal heart sounds. No murmur heard. Pulmonary: Effort: Pulmonary effort is normal. No respiratory distress. Breath sounds: Normal breath sounds. No wheezing, rhonchi or rales. Skin: General: Skin is warm and dry. Neurological: General: No focal deficit present. Mental Status: She is alert and oriented to person, place, and time. Psychiatric: Mood and Affect: Mood normal. Behavior: Behavior normal. Assessment/Plan Diagnoses and all orders for this visit: PCOS (polycystic ovarian syndrome) DHEA elevated on recent labs. Can consider medication for PCOS in the future if needed. Iron deficiency anemia due to chronic blood loss Encouraged pt to continue to take the iron supplement, encouraged her to take it regularly. CBC on 06/18/2024 showed normal H/H, RBC. Will continue to monitor with routine labs. Menorrhagia with irregular cycle Following with Dr. Blum. The initial pain following the IUD insertion has improved significantly. Advised her that it can take time for the body to adjust to a new form of control. Encouraged her to keep her follow up with Dr. Blum as scheduled for a recheck. Contact his office if anything worsens before her appointment. Follow up for Wellness. documented in this encounter [facility] 06-22-2024 History of Presen t illness Narrative Associated Order(s): IUD Insertion Post-Procedure Diagnose(s): Encounter for IUD insertion Reason for Appointment: Patient ID: Joselin Valenzuela is a 18 y.o. female who presents for IUD insertion Patient presents today for a IUD Insertion appointment. MEDICATIONS Current Outpatient Medications Medication Instructions [...] SYSTEMS Review of Systems: Review of Systems Constitutional: Negative. HENT: Negative. Eyes: Negative. Respiratory: Negative. Cardiovascular: Negative. Gastrointestinal: Negative. Genitourinary: Negative. Musculoskeletal: Negative. Skin: Negative. Neurological: Negative. All other systems reviewed and are negative. Hematological: Negative. Endocrine: Negative. Allergic/Immunologic: Negative. OBJECTIVE Objective: Physical Exam Constitutional: Appearance: Normal appearance. She is well-developed. Genitourinary: Vulva normal. Cardiovascular: Rate and Rhythm: Normal rate and [...] nursing note reviewed. Exam conducted with a kennel worker present. Vitals: Estimated body mass index is 30.07 kg/m as calculated from the following: Height as of 06/14/24: 5' 2 . Weight as of this encounter: 164 lb 6.4 oz. BP: 120/72 Patient's last menstrual period was 05/23/2024. ASSESSMENT & PLAN Assessment/Plan Encounter Diagnosis: ICD-10-CM 1. Encounter for IUD insertion Z30.430 Levonorgestrel intrauterine device 52 mg POCT , urine manually resulted IUD Insertion Date/Time: 06/22/2024 2:06 PM Performed by: Davin Blum DO Authorized by: Davin Blum DO Consent: Consent obtained: Written Consent given by: Patient Procedure risks and benefits discussed: yes Patient questions answered: yes Patient agrees, verbalizes understanding, and wants to proceed: yes Educational handouts given: yes Instructions and paperwork completed: yes [place] protocol: Patient states understanding of procedure being performed: yes Relevant documents present and verified: yes Test results available and properly labeled: yes Imaging studies available: yes Required blood products, implants, devices, and special equipment available: yes Procedure: Pelvic exam performed: yes Negative GC/chlamydia test: no Negative urine test: yes Negative serum test: no Cervix cleaned and prepped: yes Speculum placed in vagina: yes Tenaculum applied to cervix: yes Uterus sounded: yes IUD inserted with no complications: yes IUD type: Mirena Strings trimmed: yes Post-procedure: Patient tolerated procedure well: yes Patient will follow up after next period: no Comments: IUD Insertion: Patient presents today for an IUD Insertion. Patient is having a Mirena placed and written consent was obtained. Patient was placed in the dorsal lithotomy position with feet in stirrups. A sterile speculum ws placed into the vagina and the cervix was visualized. Cervix was cleansed with betadine and the anterior lip was grasped with ring forceps. Uterus was then gently sounded. New IUD device was gently advanced through the endocervix, toward te uterine fundus. The IUD was then deployed as device was gently removed from the uterus. The IUD strings were cut to the length from external os. All instruments were removed from the vagina. Post-procedure instructions given. All of patients questions were answered and she expressed understanding. Advised to call interim with any questions or concerns. Follow Up: Patient is to return to the office in 4 weeks for a string check. Documented by Jennifer Irving LPN on behalf of: Davin Blum DO documented in this encounter [facility] 06-14-2024 History of Presen t illness Narrative Reason for Appointment: Patient ID: Joselin Valenzuela is a 18 y.o. female who presents for Menstrual Problem Patient presents today for Consult appointment. MEDICATIONS Current Outpatient Medications Medication Instructions etonogestrel-eluting 68 mg contraceptive implant 1 each, Implant, Once FeroSul 325 (65 Fe) MG tablet 1 tablet, Oral, Every 48 hours ALLERGIES No Known Allergies PROBLEMS Active Ambulatory Problems Diagnosis Date Noted No Active Ambulatory Problems Resolved Ambulatory Problems Diagnosis Date Noted No Resolved Ambulatory Problems Past Medical History: Diagnosis Date Anemia Irregular menses Ovarian cyst Polycystic ovary syndrome Type A blood, Rh positive Urinary tract infection HISTORY PAST MEDICAL HISTORY SOCIAL HISTORY Past Medical History: Diagnosis Date Anemia Irregular menses Ovarian cyst Polycystic ovary syndrome Type A blood, Rh positive Urinary tract infection Social History Tobacco Use Smoking status: Never Smokeless tobacco: Never Substance Use Topics Alcohol use: Never Comment: Caffeine: occasional chocolate Drug use: Never FAMILY HISTORY Family History Problem Relation Name Age of Onset Other (Pacemaker) Maternal Grandfather 31 Other (Epilepsy) Other Maternal brother Autism Other Maternal and paternal brothers Seizures Brother Ede SURGICAL HISTORY Past Surgical History: Procedure Laterality [...] nursing note reviewed. Exam conducted with a kennel worker present. Vitals: Estimated body mass index is 29.81 kg/m as calculated from the following: Height as of this encounter: 5' 2 . Weight as of this encounter: 163 lb. BP: 106/78 Patient's last menstrual period was 05/23/2024. ASSESSMENT & PLAN ICD-10-CM 1. Menorrhagia with regular cycle N92.0 CBC and differential TSH hCG, quantitative, Protime-INR T4, free APTT Hemoglobin A1c US PELVIS-TRANSVAG IF INDICATED APTT Patient and spouse present for consult for heavy irregular cycles. Patient voiced that she is going through pads every 30 minutes. Patient to have labs drawn and Ultrasound obtained. Discussed options for prevention with patient and spouse. Patient voiced that her and her spouse have talked in regards to permanent sterilization as she has had 2 high risk pregnancies and with the last spent 11 weeks in the hospital prior to delivery. Patient does not desire to have IUD at this time and would like to in the near future have bilateral salpingectomy. Patient to try IUD and schedule for placement in 14 week & if desires to have Bilateral Salpingectomy in the future will contact office. Documented by Gema Potter LPN on behalf of: Davin Blum DO documented in this encounter [facility] 12-16-2023 History of Presen t illness Narrative [facility] Joselin Valenzuela is a [...] (eight) hours., Disp: 30 tablet, Rfl: 0 [id number] 29-1-400 mg combo pack,tablet & cap,, Take [...] as needed. Patient has established care with hide cleaner close to home. Patient lives an hour away and would prefer to follow up with her hide cleaner Julieth Edwards MD Technical Support Internship Resident, PGY-2 Resident Attestation: The patient was [...] Incision healing well. Return to hometown for INTERNATIONAL ACCOUNTANT care. Evelyne Barger DO documented in this encounter [facility] 12-06-2023 Miscellaneous Notes Formattin g of this note might be different from the original. This note was copied from a baby's chart. Met with mother at 's bedside. Stated may be discharged soon. Milk supply remains stable with pumping. Mother would like to work on latching when home. medicine outpatient phone number given. Encouraged to make appointment for help with getting baby back to breast. Back pack cooler given for transport of breast milk home. [facility] - [phone] documented in this encounter [facility] 12-06-2023 Obstetrics Note This note was copied from a baby's chart. Met with mother at infant's bedside. Stated may be discharged soon. Milk supply remains stable with pumping. Mother would like to work on latching when home. medicine outpatient phone number given. Encouraged to make appointment for help with getting baby back to breast. Back pack cooler given for transport of breast milk home. [facility] - [phone] [facility] 12-04-2023 Miscellaneous Notes Formattin g of this [...] any other assistance. documented in this encounter [facility] 12-04-2023 Obstetrics Note This note was copied from a baby's chart. Met with mom at 's bedside. States that pumping continues to go well, she has a stable supply and has felt less engorged. She has been able to pump pain free. No questions or concerns at this time, encouraged to reach out for any other assistance. [facility] 12-01-2023 Miscellaneous Notes Formattin g of this [...] baby is born. Check in with a tool specialist if swollen, engorged breasts are still [...] answered, encouragement given. documented in this encounter [facility] 12-01-2023 Obstetrics Note This note was copied [...] baby is born. Check in with a tool specialist if swollen, engorged breasts are still [...] is actually removed. Questions answered, encouragement given. [facility] 11-28-2023 Miscellaneous Notes Formattin g of this [...] concerns. Support given. documented in this encounter [facility] 11-28-2023 Obstetrics Note This note was copied from a baby's chart. Met with mother at infants bedside. States her supply is stable and has no pain with pumping. Mother plans to exclusively pump and feed. Encouraged her to call out for a LC with any questions or concerns. Support given. [facility] 11-25-2023 Miscellaneous Notes Formattin g of this note might be different from the original. This note was copied from a baby's chart. Met with mother at infant's bedside. Reports that pumping has been much better after getting assistance with flange fit. Is pumping every 2-3 hours and getting 3-5oz each time. Denies pain with pumping. No questions/concerns at this time. documented in this encounter [facility] 11-25-2023 Obstetrics Note This note was copied from a baby's chart. Met with mother at 's bedside. Reports that pumping has been much better after getting assistance with flange fit. Is pumping every 2-3 hours and getting 3-5oz each time. Denies pain with pumping. No questions/concerns at this time. [facility] 11-21-2023 Miscellaneous Notes Formattin g of this [...] any other assistance. documented in this encounter [facility] 11-21-2023 Obstetrics Note This note was copied [...] to call out for any other assistance. [facility] 11-19-2023 History of Presen t illness Narrative [...] 07/21/2017 Performed by Gustavo Murcia MD at [facility] N/A 11/11/2023 Performed by Livier Hook MD at [facility] OR FRENULECTOMY LINGUAL N/A 07/21/2017 Performed by Gustavo Murcia MD at [facility] RADIO FREQUENCY TURBINATE NASAL Bilateral 07/21/2017 Performed by Gustavo Murcia MD at [facility] MEDICAL HX History reviewed. No pertinent past [...] every 8 (eight) hours. 30 tablet 0 [id number] 29-1-400 mg combo pack,tablet & cap,DR Take [...] and discussed with MD Peggy Sanchez MD Technical Support Internship Resident PGY-4 11/19/23 10:49 AM Seen today [...] the resident's note. Additional Notes/Findings: S/p on 2/13/24 at 34 weeks for vasa previa. Care complicated by Low lying placenta, h/o delivery, VSD. Released home on POD#2 Today reports doing well. in NICU. Breast milk BCM:Rec'd Nexplanon prior [...] weeks for exam documented in this encounter [id number] 11-18-2023 Miscellaneous Notes Formattin g of this [...] breastfeed or pump. [facility] Obstetrics Note This note was copied [...] you are able to breastfeed or pump. [facility] 11-17-2023 Miscellaneous Notes Formattin g of this [...] All questions answered. documented in this encounter [facility] 11-17-2023 Obstetrics Note This note was copied from a baby's chart. Saw mom at infants bedside. Attempting to latch almost every feed for about 10mins having a couple of sucks. States no concerns with pumping or latching. Encourage mom to continue to latch and follow cues. All questions answered. [facility] 11-15-2023 Miscellaneous Notes Formattin g of this [...] as needed.Verbalized understanding. documented in this encounter [facility] 11-15-2023 Obstetrics Note This note was copied [...] at bedside for support as needed.Verbalized understanding. [facility] 04-07-2023 Evaluation note Encounter Date Diagnosis Assessment [...] continues to struggle. Otherwise, continue current care. [employer] Other 06-21-2023 Evaluation note* Encounter Date Diagnosis Assessment Notes Treatment Notes Treatment Clinical Notes Feb, Wellness examination (ICD-10 - Z01.89) Feb, Screening for metabolic disorder (ICD-10 - Z13.228) Feb, Screening for cardiovascular condition (ICD-10 - Z13.6) Feb, Weight gain (ICD-10 - R63.5) [employer] Other 10-31-2022 Evaluation note* Encounter Date Diagnosis Assessment Notes Treatment Notes Treatment Clinical Notes Jun, RLQ abdominal pain (ICD-10 - R10.31) Jun, RUQ abdominal pain (ICD-10 - R10.11) [employer] Other 10-22-2022 NoteEducation Materials Elevated Blood Pressure [...] chicken without skin, beans, eggs, (more content notincluded)...[facility] 07-31-2021 Evaluation note* Encounter Date Diagnosis Assessment [...] Nexplanon. I've recommended she discuss with her hide cleaner, Dr. Harris, whether or not this should be removed and if she should consider alternative forms of contraception. I've offered to check CBC, Iron, and TSH, but patient prefers to meet with Dr. Harris first. [employer] Other 11-01-2017 History general Narrative - Reported* Type Description Date Medical History Depression Medical History broken fingers from sports Medical History sprained right ankle - basketbal l Medical History Contusion to the Right Ankle - S occer Surgical History adenoidecomty 07/2017 Hospitalization History Child [facility] [employer] Other Evaluation noteNo [facility] [employer] Other Evaluation noteNo assessment information available [facility] Work Phone: Evaluation note* Diagnosis Onset Date Resolution Status Menorrhagia with regular cycle acute Encounter for wellness examination noneactive [facility] Work Phone: Evaluation note* Diagnosis Onset Date Resolution Status Menorrhagia with regular cycle acute Encounter for wellness examination noneactive Sore throat noneactive [facility] Work Phone: Evaluation note* Diagnosis Nexplanon removal Encounter for routine checking of intrauterine contraceptive device (IUD) documented in this encounter [facility]* Diagnosis Menorrhagia with regular cycle documented in this encounter [facility]* Diagnosis PCOS (polycystic ovarian syndrome)- Primary Polycystic ovaries Iron deficiency anemia due to chronic blood loss Iron deficiency anemia secondary to blood loss (chronic) Menorrhagia with irregular cycle documented in this encounter [facility] Healthcare[facility]* Diagnosis Encounter for IUD insertion Insertion of intrauterine contraceptive device documented in this encounter [facility] Healthcare[facility] note* Diagnosis Surgical followup- Primary [facility] Diagnosis Encounter for visit- Primary [facility] Diagnosis Weight gain- Primary Other symptoms concerning nutrition, metabolism, and development Class 1 obesity without serious comorbidity with body mass index (BMI) of 31.0 to 31.9 in adult, unspecified obesity type PCOS (polycystic ovarian syndrome) Polycystic ovaries Family history of thyroid disease Family history of other endocrine and metabolic diseases Iron deficiency anemia due to chronic blood loss Iron deficiency anemia secondary to blood loss (chronic) Other fatigue documented in this encounter [facility]InstructionsNot on filedocumented in this encounterProMediok Health SystemInstructionsNot on filedocumented in this encounterProMediRegional [facility] SystemInstructionsNot on filedocumented in this encounterProSelect [facility] Summary Purpose Family History No Family History [...] (unrecogniz ed section and content) Reason Comments Contraception Removal of Nexplanon and String check Reason Comments Menstrual Problem Reason Comments IUD insertion Reason Comments Care INFORMATION SOURCE (unrecogn ized section and content) DATE CREATED AUTHOR 07/26/2022 [facility] DATE CREATED AUTHOR AUTHOR'S ORGANIZ ATION 12/17/2023 [facility] DATE CREATED AUTHOR AUTHOR'S ORGANIZ ATION 01/23/2024 [facility] DATE CREATED AUTHOR AUTHOR'S ORGANIZ ATION 01/19/2025 [facility] EPIC DATE CREATED AUTHOR AUTHOR'S ORGANIZ ATION 01/21/2025 [facility] Care Teams (unrecognized sec tion and content) Team Status: Active Member Role Status Dates Mishel Dimas DO Primary Care Provider Active Team Status: Inactive Member Role Status Dates Mishel Dimas DO Primary Care Provider, Michellein g Provider Active Team Status: Inactive Member Role [...] April 14, 2024 End: April 14, 2024 Valve Tester Relationship Specialty Start Date End Date Noemi Yoo MD [address] [facility] [address] [place] [address] PCP - General Family Medicine 06/24/24 Jennifer Herrera PA [address] [facility] [address] [place] [address] Physician Consulting Manager Family Medicine 06/24/24 Valve Tester Relationship Specialty Start Date End Date Noemi Yoo MD [address] [facility] [address] [place] [address] PCP - General Family Medicine 06/24/24 Jennifer Herrera PA [address] [facility] [address] [place] [address] Physician Consulting Manager Family Medicine 06/24/24 Valve Tester Relationship Specialty Start Date End Date Mishel Dimas MD NPI: [id number] [place] [phone] PCP - General Family Medicine 04/14/23 Valve Tester Relationship Specialty Start Date End Date Mishel Dimas MD NPI: [id number] [place] [phone] PCP - General Family Medicine 04/14/23 Valve Tester Relationship Specialty Start Date End Date Mishel Dimas MD NPI: [id number] [place] [phone] PCP - General Family Medicine 04/14/23 Valve Tester Relationship Specialty Start Date End Date Mishel Dimas MD [id number] [place] [phone] PCP - General Family Medicine 04/14/23 Valve Tester Relationship Specialty Start Date End Date Mishel Dimas MD NPI: [id number] [place] [address] PCP - General Family Medicine 04/14/23 Valve Tester Relationship Specialty Start Date End Date Mishel Dimas DO NPI: [id number] [place] [address] PCP - General Family Medicine 06/23/17 Valve Tester Relationship Specialty Start Date End Date Mishel Dimas DO NPI: [id number] [place] [phone] PCP - General Family Medicine 06/23/17 Valve Tester Relationship Specialty Start Date End Date Mishel Dimas DO NPI: [id number] [place] [phone] PCP - General Family Medicine 06/23/17 Valve Tester Relationship Specialty Start Date End Date Mishel Dimas DO NPI: [id number] [place] [phone] PCP - General Family Medicine 06/23/17 Valve Tester Relationship Specialty Start Date End Date Noemi Yoo MD [address] [facility] [address] [place] [address] PCP - General Family Medicine 06/24/24 Jennifer Herrera PA [address] [address] Physician Consulting Manager Family Medicine 06/24/24 Valve Tester Relationship Specialty Start Date End Date Noemi Yoo MD [address] [address] PCP - General Family Medicine 06/24/24 Jennifer Herrera PA 112 [facility] [address] [place] [address] Physician Consulting Manager Family Medicine 06/24/24 Goals (unrecognized section and [...] BE BASED ON THE PRIMARY CLINICAL RECORDS. [employer] provides no warranty or guarantee of the accuracy or completeness of information in this document.
--- OUTSIDE RECORDS SUMMARY | 2025-03-19 11:04 | XMS_ITS | Encounter Summary ---
Author Organization [facility] [employer] [facility] tem Address [id number] [place] [address] Care Team Providers Care Home Mission Worker Name Role Phone Kalina Caalew Mi CASANOVA Primary Care Provider [phone] Encounter Details Date Type Department Care Team (Late st Contact Info) Description 08/26/2023 Orders Only Maternal- Medicine at [facility] [address] [place] [address] Ref Prov, [place] [address] Social History Tobacco Use Types Packs/Day Years Used Date Smoking Tobacco: Never Smokeless Tobacco: Never Alcohol Use Standard Drinks/Week Comments No 0 (1 standard drink = 0.6 oz pur e alcohol) Childcare Answer Date Recorded Childcare Unknown 03/08/2019 Employment Answer Date Recorded Employment Unknown 03/08/2019 Hunger Screening Answer Date Recorded Within the past 12 months we worried whether our food would run out before we got money to buy more. Never True 08/28/2023 Within the past 12 months th e food we bought just didn't last and we didn't have money to get more. Never True 08/28/2023 Purpose - Life Answer Date Recorded Purpose and direction in life Unknown Comments Yes Sex and Gender Information Value Date Recorded Sex Assigned at Female 08/28/2023 5:58 PM EST Legal Sex Female 2:06 PM EDT Gender Identity Female 08/28/2023 5:58 PM EST Sexual Orientation Straight 08/28/2023 5: 58 PM EST documented as of this encounter Functional Status documented as of this encounter Plan of Treatment Not on file documented as of this encounter Procedures Procedure Name Priority Date/Time Associated Diagnosis Comments US PREG LMTD 1 OR MORE FETUS Routine 2023 11:22 AM EST UNLISTED GENETIC TEST Routine 06/05/2023 11:25 AM EDT US PREG LMTD 1 OR MORE FETUS Routine 05/15/2023 11:20 AM EDT documented in this encounter Results * Ultrasound limited 1 or more fetus (2023 11:22 AM EST) Anatomical Region Laterality Modality OB-SALES AND MARKETING ENGINEER Ultrasound us Not In System Ref Prov IMG US ORDERABLES Final R esult * Unlisted Genetic Test (06/05/2023 11:25 AM EDT) us Not In System Ref Prov LAB BLOOD ORDERABLES Joelle l Result MANUALLY TRANSCRIBED RESULTS * Ultrasound limited 1 or more fetus (05/15/2023 11:20 AM EDT) Anatomical Region Laterality Modality OB-SALES AND MARKETING ENGINEER Ultrasound us Not In System Ref Prov IMG US ORDERABLES Final R esult documented in this encounter Visit Diagnoses Not on filedocumented in this encounter Additional Health Concerns Infection Onset Date Last Indicated Resolved Time COVID-19 Rule-Out 10/08/2023 10/08/2023 10/08/2023 11:05 AM EST documented as of this encounter Care Teams Home Mission Worker Relationship Specialty Start Date End Date Deshawn Caal DO PCP - General Family Medicine 06/23/17 documented as of this encounter
--- OUTSIDE RECORDS SUMMARY | 2025-03-19 11:04 | XMS_ITS | Clinical Summary ---
Author Organization [facility] Healthcare Address [address] [place] [address] Care Team Providers Care Supervisor Special Services Name Role Phone Noemi Yoo MD Primary Care Provider [phone] Jennifer Tucker Unavailable [phone] Allergies No known active allergies Medications ferrous sulfate (Fe Tabs) 325 (65 Fe) MG EC tabletIndicatio ns:Low ferritin Take 1 tablet (325 mg) by mouth in the morning. Take with meals. Do not crush, chew, or split. 30 tablet 2 01/20/2025 Active cholecalciferol (Vitamin D-3) 50 MCG (1999 UT) capsuleIndicati ons:Vitamin D deficiency Take 1 capsule (50 mcg) by mouth Daily 90 capsule 3 01/20/2025 Active Hospital, Clinic, or Other Facility Administered Medication Ordered Dose Route Frequency Start Date End Date Status Levonorgestrel intrauterine device 52 mgIndications:Encounter for IUD insertion 52 mg IU Continuous 06/22/2024 06/21/2029 Active Active Problems Problem Noted Date Diagnosed Date Class 1 obesity without seri ous comorbidity with body mass index (BMI) of 31.0 to 31.9 in adult 01/18/2025 PCOS (polycystic ovarian syndrome) 06/24/2024 Major depressive disorder, single episode, moder ate 06/24/2024 Menorrhagia with irregular cycle 06/24/2024 Iron deficiency anemia due to chronic blood loss 06/24/2024 Deviated septum 09/15/2018 S/P adenoidectomy 08/04/2017 Allergic rhinitis 06/23/2017 Resolved Problems Problem Noted Date Diagnosed Date Resolved Date Antepartum bleeding, third t rimester ([facility]) 06/24/2024 06/24/2024 Abdominal cramping complicat ing , antepartum ([facility]) 06/24/2024 06/24/2024 UTI (urinary tract infection) 06/24/2024 06/24/2024 Excessive and frequent menstruation 06/24/2024 06/24/2024 Other acute sinusitis 10/27/20172023 Adenoid hypertrophy 06/23/2017 06/24/20 24 Encounters Date Type Department Care Team Description 01/20/2025 Results Follow-Up [facility] [address] [facility] [address] [place] [phone] Jennifer Tucker PA Low ferritin (Primary Dx); Vitamin D deficiency 01/18/2025 4:30 PM EDT Office Visit [facility] [address] [facility] [address] [place] [address] Jennifer Tucker PA Weight gain (Primary Dx); Class 1 obesity without serious comorbidity with body mass index (BMI) of 31.0 to 31.9 in adult, unspecified obesity type; PCOS (polycystic ovarian syndrome); Family history of thyroid disease; Iron deficiency anemia due to chronic blood loss; Other fatigue 01/18/2025 Bamboo flowsheet [facility] [address] [facility] [address] [place] [address] Jennifer Tucker PA 01/18/2025 Travel from Last 3 Months Family History Medical History Relation Name Comments Seizures Brother 3 Ede Pacemaker Maternal Grandfather Thyroid disease Maternal Grandmother Autism Other Maternal and pa ternal brothers Epilepsy Other Maternal brothe r Thyroid disease Sister Relation Name Status Comments Brother 1 Alive Brother 2 Alive Brother 3 Ede Daughter Alive Father Alive Maternal Grandfather Maternal Grandmother Mother Alive Other Sister Alive Son Alive Social History Tobacco Use Types Packs/Day Years Used Date Smoking Tobacco: Never Smokeless Tobacco: Never Tobacco Cessation:Counseling Given: Not Answered Alcohol Use Standard Drinks/Week Comments Never 0 (1 standard drink = 0.6 oz pur e alcohol) Caffeine: occasional chocolate Social Connection and Isolat ion Panel [NHANES] Answer Date Recorded In a typical week, how many times do you talk on the phone with family, friends, or neighbors? Twice a week 01/28/2024 How often do you get togethe r with friends or relatives? Once a week 01/28/2024 How often do you attend chur ch or methodist services? More than 4 times per year 01/28/2024 Do you belong to any clubs o r organizations such as jehovah's witness groups, unions, fraternal or athletic groups, or school groups? No 01/28/2024 How often do you attend meet ings of the clubs or organizations you belong to? Patient declined 01/28/2024 Are you , , di vorced, , never , or living with a partner? Living with partner 01/28/2024 AUDIT-C Answer Date Recorded Q1: How often do you have a drink containing alcohol? Never 01/28/2024 Q2: How many drinks containi ng alcohol do you have on a typical day when you are drinking? Patient does not drink Q3: How often do you have si x or more drinks on one occasion? Never 01/28/2024 Overall Financial Resource Strain (CARDIA) Answe r Date Recorded How hard is it for you to pa y for the very basics like food, housing, medical care, and heating? Not hard at all 01/28/2024 PHQ-2 Answer Date Recorded Patient Health Questionnaire-2 Score 0 01/18/2025 [facility] - Occupational Stress Questionnaire Answer Date Recorded Do you feel stress - tense, restless, nervous, or anxious, or unable to sleep at night because your mind is troubled all the time - these days? Only a little 01/28/2024 Exercise Vital Sign Answer Date Recorde d On average, how many days pe r week do you engage in moderate to strenuous exercise (like a brisk walk)? 2 days 01/28/2024 On average, how many minutes do you engage in exercise at this level? 20 min 01/28/2024 Hunger Vital Sign Answer Date Recorded Within the past 12 months, y ou worried that your food would run out before you got the money to buy more. Never true 01/28/20 24 Within the past 12 months, t he food you bought just didn't last and you didn't have money to get more. Never true 01/28/2024 PRAPARE - Transportation Answer Date Re corded In the past 12 months, has l ack of transportation kept you from medical appointments or from getting medications? No 09/2023 In the past 12 months, has l ack of transportation kept you from meetings, work, or from getting things needed for daily living? No 01/28/2024 Housing Stability Vital Sign Answer Cb e Recorded In the last 12 months, was t here a time when you were not able to pay the mortgage or rent on time? No 01/28/2024 In the last 12 months, how many places have you lived? 1 01/28/2024 In the last 12 months, was t here a time when you did not have a steady place to sleep or slept in a alf (including now)? No 01/28/2024 Comments No Sex and Gender Information Value Date Recorded Sex Assigned at Not on file Legal Sex Female 6:51 PM EDT Gender Identity Not on file Sexual Orientation Not on file Last Filed Vital Signs Vital Sign Reading Time Taken Comments Blood Pressure 124/82 01/18/2025 4:27 PM EDT Pulse 79 01/18/2025 4:27 PM EDT Temperature 35.9 C (96.7 F) 02/03/2024 9:02 AM EDT Respiratory Rate 16 01/18/2025 4:27 PM EDT Oxygen Saturation 99% 01/18/2025 4:27 PM EDT Inhaled Oxygen Concentration - - Weight 78.2 kg (172 lb 6.4 oz) 01/18/2025 4:27 P M EDT Height 157.5 cm (5' 2 ) 01/18/2025 4:27 PM EDT Body Mass Index 31.53 01/18/2025 4:27 PM EDT Plan of Treatment Upcoming Encounters Date Type Department Care Team (Late st Contact Info) Description 03/29/2025 1:00 PM EDT Office Visit [facility] [address] [facility] [place] [address] Luba Corral PA [address] [facility] [address] [place], [place] [id number] 06/24/2025 10:30 AM EDT Office Visit [facility] [address] [email or web address] [address] [place] [address] Jennifer Tucker PA [address] [facility] [address] [place] [address] Health Maintenance Due Date Last Done Comments Influenza Vaccine (Season Ended) 2025 09/22/20, 11/05/2005 Procedures Procedure Name Priority Date/Time Associated Diagnosis Comments CBC Routine 01/19/2025 9:10 AM EDT Iron deficiency anemia due to chronic blood loss Other fatigue IRON + TRANSFERRIN + TIBC Routine 01/19/2025 9:10 AM EDT Iron deficiency anemia due to chronic blood loss Other fatigue TSH W/REFLEX TO FT4 Routine 01/19/2025 9 :10 AM EDT Weight gain Family history of thyroid disease Other fatigue VITAMIN D 25 HYDROXY TOTAL Routine 01/19/2025 9:10 AM EDT Weight gain PCOS (polycystic ovarian syndrome) Other fatigue from Last 3 Months Results * (ABNORMAL) Iron + transferrin + TIBC (01/19/2025 9:10 AM EDT) IRON, TOTAL 116 40 - 190 mcg/dL [facility] IRON BINDING CAPACITY 373 250 - 450 mcg/dL (calc) [facility] % SATURATION 31 16 - 45 % (calc) [facility] FERRITIN 14(L) 16 - 154 ng/mL [facility] Blood 01/19/2025 9:10 AM EDT 01/19/2025 3:11 PM EDT Narrative [facility] - 01/20/2025 9:17 AM EDT FASTING:NO FASTING: NO Resulting Agency Comment Performing Organization Information Site ID: QPT Name: [facility] Address: [address] [place] [address], [address] [place] [phone] Director: Tavo Barnes MD Jennifer LAU LAB BLOOD ORDERABLES Final Res ult Performing Organization Address [facility]/ZIP Co de Phone Number [facility] * TSH W/REFLEX TO FT4 (01/19/2025 9:10 AM EDT) TSH W/REFLEX TO FT4 1.04 mIU/L [facility] Comment: Reference Range > or = 20 Years 0.40-4.50 Ranges First trimester 0.26-2.66 Second trimester 0.55-2.73 Third trimester 0.43-2.91 01/19/2025 9:10 AM EDT 01/19/2025 3:11 PM EDT Narrative [facility] - 01/20/2025 9:17 AM EDT FASTING:NO FASTING: NO Resulting Agency Comment Performing Organization Information Site ID: QPT Name: [facility] Address: [address] [place] [address], [address] [place] [phone] Director: Tavo Barnes MD Jennifer [facility] LAB BLOOD ORDERABLES Final Res ult Performing Organization Address [facility] de Phone Number [facility] * (ABNORMAL) Vitamin D 25 hydroxy Total (01/19/2025 9:10 AM EDT) VITAMIN D,25-OH,TOTAL,IA 27(L) 30 - 100 ng/mL [facility] Comment: Vitamin D Status 25-OH Vitamin D: Deficiency: <20 ng/mL Insufficiency: 20 - 29 ng/mL Optimal: > or = 30 ng/mL For 25-OH Vitamin D testing on patients on D2-supplementation and patients for whom quantitation of D2 and D3 fractions is required, the QuestAssureD(TM) 25-OH VIT D, (D2,D3), LC/MS/MS is recommended: order code 69359 (patients >2yrs). See Note 1 Note 1 For additional information, please refer to http://education.[employer]/faq/BLD994 (This link is being provided for informational/ educational purposes only.) Blood Venous blood specimen / Unknown 01/19/2025 9:10 AM EDT 01/19/2025 3:11 PM EDT Narrative [facility] - 01/20/2025 9:17 AM EDT FASTING:NO FASTING: NO Resulting Agency Comment Performing Organization Information Site ID: QPT Name: [facility] Address: [address] [place] [address], [address] [place] [phone] Director: Tavo Barnes MD us Jennifer [facility] LAB BLOOD ORDERABLES Final Res ult Performing Organization Address City/[facility]/ZIP Co de Phone Number [facility] * CBC (01/19/2025 9:10 AM EDT) WHITE BLOOD CELL COUNT 4.8 3.8 - 10.8 Thousand/u L [facility] RED BLOOD CELL COUNT 5.04 3.80 - 5.10 Million/uL [facility] HEMOGLOBIN 14.8 11.7 - 15.5 g/dL [facility] HEMATOCRIT 44.8 35.0 - 45.0 % [facility] MCV 88.9 80.0 - 100.0 fL [facility] MCH 29.4 27.0 - 33.0 pg [facility] MCHC 33.0 32.0 - 36.0 g/dL [facility] Comment: For adults, a slight decrease in the calculated MCHC value (in the range of 30 to 32 g/dL) is most likely not clinically significant; however, it should be interpreted with caution in correlation with other red cell parameters and the patient's clinical condition. RDW 13.7 11.0 - 15.0 % [facility] PLATELET COUNT 215 140 - 400 Thousand/u L [facility] MPV 10.9 7.5 - 12.5 fL [facility] Blood Venous blood specimen / Unknown 01/19/2025 9:10 AM EDT 01/19/2025 3:11 PM EDT Narrative [facility] - 01/20/2025 9:17 AM EDT FASTING:NO FASTING: NO Resulting Agency Comment Performing Organization Information Site ID: QTW Name: [facility] Address: [address] [place] [phone] Director: Lu Champagne us Jennifer [facility]U LAB BLOOD ORDERABLES Final Res ult [facility] from Last 3 Months Insurance [facility] Member Subscriber Plan / Payer (Ef fective 2017-Present) Name:Joselin Valenzuela Relation to Subscriber:Child Name:MINNIE WISEMAN Date of :1978 Address: [address] [place], [place] [id number] Payer ID:Not on file Type:Not on file Address: [address] [place], [place] [id number] Care Teams Supervisor Special Services Relationship Specialty Start Date End Date Noemi Yoo MD [address] [facility] [address] [place] [address] PCP - General Family Medicine 06/24/24 Jennifer Tucker PA [address] [facility] [address] [place] [address] Physician Wallpaper Inspector Family Medicine 06/24/24
--- OUTSIDE RECORDS SUMMARY | 2025-03-19 11:04 | XMS_ITS | Patient Health Record ---
Author Organization [facility] es Address [address] [place] [address] Care Team Providers Care Infrastructure Technician Name Role Phone Katerin Chase [phone] Reason For Referral No Information Problems Problem Type SNOMED Code ICD Code Onset Dates Problem Status W/U Status Risk Notes Problem Primigravida (715901738) Encounter for supervision of normal first , unspecified trimester (Z34.00) Active confirm Plan Of Treatment No Information Insurance Providers Payer Name Payer Address Payer Phone Subscriber Number Group Number Insured Name Patient Relationship to Insured Coverage Start Date Coverage End Date ANTHEM Primary [address] [place] [address] [id number] BLACKBURNREBECA VENTURA Self - patient is the insured [address] [place] [address] [id number] REBECA BLACKBURN Self - patient is the insured 5 Medical (General) History Medical History History ICD Code seasonal Surgical History Surgery Date(Month/Year) adenoidectomy 2018
--- OUTSIDE RECORDS SUMMARY | 2025-03-19 11:04 | XMS_ITS | Encounter Summary ---
Author Organization [facility] Address [id number] [address] [place] [address] Care Team Providers Care Office Associate Name Role Phone Deshawn Caal DO Primary Care Provider [phone] Encounter Details Date Type Department Care Team (Late st Contact Info) Description 09/15/2018 Documentation [facility] [address] [place] [address] Coleen Lockwood LPN Social History Tobacco Use Types Packs/Day Years Used Date Smoking Tobacco: Never Smokeless Tobacco: Never Alcohol Use Standard Drinks/Week Comments No 0 (1 standard drink = 0.6 oz pur e alcohol) Comments No Sex and Gender Information Value Date Recorded Sex Assigned at Female 08/28/2023 5:58 PM EST Legal Sex Female 2:06 PM EDT Gender Identity Female 08/28/2023 5:58 PM EST Sexual Orientation Straight 08/28/2023 5: 58 PM EST documented as of this encounter Plan of Treatment Not on file documented as of this encounter Visit Diagnoses Not on filedocumented in this encounter Additional Health Concerns Infection Onset Date Last Indicated Resolved Time COVID-19 Rule-Out 10/08/2023 10/08/2023 10/08/2023 11:05 AM EST documented as of this encounter Care Teams Office Associate Relationship Specialty Start Date End Date Deshawn Caal DO PCP - General Family Medicine 06/23/17 documented as of this encounter
--- OUTSIDE RECORDS SUMMARY | 2025-03-19 11:04 | XMS_ITS | Encounter Summary ---
Author Organization [facility] Address [address] [facility] [address] Care Team Providers Care Label Cutter Name Role Phone Deshawn Caal MD Primary Care Provider [phone] Noemi Yoo MD Primary Care Provider [phone] Jennifer Tucker Unavailable [phone] Encounter Details Date Type Department Care Team (Late st Contact Info) Description 2023 Clinisync Result Encounter [facility] External Department Unsolicited Nenita Blum DO [address] [place] [address] Social History Tobacco Use Types Packs/Day [...] suspected to have Coronavirus/COVID-19? No / Unsure 2023 8:51 AM EST documented as of this encounter Plan of Treatment Upcoming Encounters Date Type Department Care Team (Late st Contact Info) Description 03/29/2025 1:00 PM EDT Office Visit [facility] [address] [facility] [place] [address] Luba Corral PA [address] [place] [address] 06/24/2025 10:30 AM EDT Office Visit [facility] [address] [facility] [address] [place] [address] Jennifer Tucker PA [address] [facility] [address] [place] [address] documented as of this encounter Procedures Procedure Name Priority Date/Time Associated Diagnosis Comments US OB TRANSVAGINAL 2023 3: 32 PM EST documented in this encounter Results * US OB TRANSVAGINAL (2023 3:32 PM EST) Anatomical Region Laterality Modality Other 2023 3:32 PM EST Narrative 2023 3:32 PM EST The [address] [address] Ultrasound Report Signed Patient: JOSELIN BLACKBURN MR#: [id number] : 2005 Acct:[id number] Age/Sex: 18 / F ADM Date: 08/11/23 Loc: US Attending Dr: Nenita Blum D.O. Ordering Physician: Nenita Blum D.O. Date of Service: 08/11/23 Procedure(s): US OB transvaginal Accession Number(s): [id number] cc: Nenita Blum D.O.; Physician,Non-Staff MDannielle The [address] [address] Patient Name: JOSELIN BLACKBURN MRN: [id number] date: 2005 Sex: F Assigned Patient Location: US Current Patient Location: US Accession/Order Number: [id number] Exam Date: 2023 11:10 Report Date: 2023 15:32 At the request of: NENITA BLUM Procedure: US OB transvaginal EXAMINATION: US OB anatomy, US OB transvaginal HISTORY: Second Trimester Z34.92 COMPARISON: No relevant comparison available. TECHNIQUE: Transabdominal sonographic examination was performed for obstetrical and evaluation. FINDINGS: Number: 1 Heart Rate: Not recorded (tech error); active fetus during examination. Amniotic Fluid Volume: Subjectively normal Placental Location: Posterior with complete previa. Cervix Length: 4.6 cm, closed. ANATOMY: Normal Structures -cerebellum, choroid plexus, cisterna magna, lateral cerebral ventricles, orbits, midline falx, hard palate, four-chamber heart, RVOT, LVOT, stomach, kidneys, bladder, umbilical cord insertion into abdomen, three-vessel cord, cervical spine, thoracic spine, lumbar spine, sacral spine, right upper extremity, left upper extremity, right lower extremity, left lower extremity. SUBOPTIMALLY SEEN: None ABNORMALITIES: None BIOMETRY: BPD: 4.9 cm 20 weeks 6 days HC: 18.5 cm 20 weeks 6 days AC: 14.7 cm 20 weeks 0 days FL: 3.5 cm 21 weeks 1 days EFW:361.9 grams; 29% FL/AC: 23.9 FL/BPD: 71.9 HC/AC: 1.3 GESTATIONAL AGE: Age by EDC: 20 weeks 6 days YUDELKA by EDC: 12/23/2023 Age by current US: 20 weeks 5 days YUDELKA by current US: 12/24/2023 US/US OB transvaginal IMPRESSION: 1. Single live intrauterine with growth detailed above. Electronically authenticated by: FRANCISCO NORTH Date: 2023 15:32 Dictated By: Francisco North M.D. Signed By: 08/11/23 1534 DD/ 1532 TD/TT: Housekeeper Manager: Procedure Note Radiology, Radiologist, - [address] [address] Ultrasound Report Signed Patient: JOSELIN BLACKBURNMR#: [id number] : 2005Acct:[id number] Age/Sex: 18 / FADM Date: 08/11/23 Loc: US Attending Dr: Nenita Blum D.O. Ordering Physician: Nenita Blum D.O. Date of Service: 08/11/23 Procedure(s): US OB transvaginal Accession Number(s): [id number] cc: Nenita Blum D.O.; Physician,Non-Staff [place] [id number] Patient Name: JOSELIN BLACKBURN MRN: [facility]:[id number] date: 2005 Sex: F Assigned Patient Location: US Current Patient Location: US Accession/Order Number: [id number] Exam Date: 2023 11:10 Report Date: 2023 15:32 At the request of: NENITA BLUM Procedure: US OB transvaginal EXAMINATION: US OB anatomy, US OB transvaginal HISTORY: Second Trimester Z34.92 COMPARISON: No relevant comparison available. TECHNIQUE: Transabdominal sonographic examination was performed for obstetrical and evaluation. FINDINGS: Number: 1 Heart Rate: Not recorded (tech error); active fetus duringexamination. Amniotic Fluid Volume: Subjectively normal Placental Location: Posterior with complete previa. Cervix Length: 4.6 cm, closed. ANATOMY: Normal Structures -cerebellum, choroid plexus, cisterna magna, lateral cerebral ventricles, orbits, midline falx, hard palate, four-chamberheart, RVOT, LVOT, stomach, kidneys, bladder, umbilical cord insertion intoabdomen, three-vessel cord, cervical spine, thoracic spine, lumbar spine, sacralspine, right upper extremity, left upper extremity, right lower extremity, leftlower extremity. SUBOPTIMALLY SEEN: None ABNORMALITIES: None BIOMETRY: BPD: 4.9 cm 20 weeks 6 days HC: 18.5 cm 20 weeks 6 days AC: 14.7 cm 20 weeks 0 days FL: 3.5 cm 21 weeks 1 days EFW:361.9 grams; 29% FL/AC: 23.9 FL/BPD: 71.9 HC/AC: 1.3 GESTATIONAL AGE: Age by EDC: 20 weeks 6 days YUDELKA by EDC: 12/23/2023 Age by current US: 20 weeks 5 days YUDELKA by current US: 12/24/2023 US/US OB transvaginal IMPRESSION: 1. Single live intrauterine with growth detailed above. Electronically authenticated by: FRANCISCO NORTH Date: 2023 15:32 Dictated By: Francisco North M.D. Signed By:08/11/231533 DD/ 31 TD/TT: Housekeeper Manager: us Nenita Viktoria DO [facility] Final Result documented in this encounter Visit Diagnoses Not on filedocumented in this encounter Care Teams Label Cutter Relationship Specialty Start Date End Date Deshawn Caal MD PCP - General Family Medicine 04/14/23 06/23/24 Noemi Yoo MD [address] [facility] [address] [place], [place] [phone] PCP - General Family Medicine 06/24/24 Jennifer Tucker PA [address] [facility] [address] [place] [address] Physician Factory Hand Family Medicine 06/24/24 documented as of this encounter
--- OUTSIDE RECORDS SUMMARY | 2025-03-19 11:04 | XMS_ITS | Encounter Summary ---
Author Organization [facility] Address [address] [place] [address] Care Team Providers Care [employer] Name Role Phone Deshawn Caal MD Primary Care Provider + [phone] Noemi Yoo MD Primary Care Provider [phone] Jennifer Tucker Unavailable [phone] Encounter Details Date Type Department Care Team (Late st Contact Info) Description 06/20/2024 Clinisync Result Encounter [facility] External Department Unsolicited Nenita Blum, DO [address] [facility] [place] [address] Social History Tobacco Use Types [...] often do you attend chur ch or restoration services? More than 4 times per year 01/28/2024 Do you belong to any clubs o r organizations such as mormon groups, unions, fraternal or athletic groups, or [...] and heating? Not hard at all 01/28/2024 [facility] - Occupational Stress Questionnaire Answer Date Recorded [...] place to sleep or slept in a snf (including now)? No 01/28/2024 Comments No Sex [...] Visit [facility] BCP OB [address] [facility] [place] [address] Luba Corral PA [address] [facility] [place] [address] 06/24/2025 10:30 AM EDT Office Visit [facility] [address] [facility] [address] [place] [address] Jennifer Tucker PA [address] [place] [address] [place] [address] documented as of this encounter Procedures Procedure Name Priority Date/Time Associated Diagnosis Comments US PELVIS W/ TRANSVAGINAL 06/20/2024 8:49 PM EDT documented in this encounter Results * US PELVIS W/ TRANSVAGINAL (06/20/2024 8:49 PM EDT) Anatomical Region Laterality Modality Other 06/20/2024 8:49 PM EDT Narrative 06/20/2024 8:51 PM EDT The [address] [address] Ultrasound Report Signed Patient: JOSELIN BLACKBURN MR#: [id number] : 2005 Acct:[id number] Age/Sex: 18 / F ADM Date: 06/18/24 Loc: US Attending Dr: Nenita Blum D.O. Ordering Physician: Nenita Blum D.O. Date of Service: 06/18/24 Procedure(s): US pelvis w/ transvaginal Accession Number(s): [id number] cc: Nenita Blum D.O.; Physician,Non-Staff [place] [id number] Patient Name: JOSELIN BLACKBURN MRN: [id number] date: 2005 Sex: F Assigned Patient Location: US Current Patient Location: US Accession/Order Number: [id number] Exam Date: 06/18/2024 10:05 Report Date: 06/20/2024 20:49 At the request of: NENITA BLUM Procedure: US pelvis w/ transvaginal PROCEDURE: US PELVIS W/ TRANSVAGINAL, 06/18/2024 10:05 AM EDT CLINICAL INDICATIONS: Pelvic pain, abnormal uterine bleeding for 2 weeks, prior section. 2 para 2. LMP 05/23/2024. COMPARISON: 01/22/2024. TECHNIQUE: Transabdominal, transvaginal pelvic sonogram, grayscale color and spectral assessment. FINDINGS: Uterus: 9.0 x 4.3 x 5.2 cm. Endometrial echo complex 0.3 cm. Normal uterine sonographic morphology. No focal abnormality demonstrated. Right ovary: 3.8 x 2.3 x 3.3 cm volume 15 mL. Subcentimeter follicle seen. Normal sonographic morphology. Left ovary: 3.4 x 2.2 x 2.7 cm, volume 10 mL. Subcentimeter follicle seen. Normal sonographic morphology. DUPLEX PELVIC VASCULATURE: There is intact flow within the ovarian tissue bilaterally by color-flow assessment. Arterial spectral tracing is identified from within. Right resistive index 0.43, left 0.52. No significant free fluid. US/US pelvis w/ transvaginal IMPRESSION: 1. Normal uterine and bilateral ovarian sonographic morphology. 2. No pathology demonstrated. Electronically authenticated by: HERMELINDA SHERIDAN Date: 06/20/2024 20:49 Dictated By: Hermelinda Sheridan M.D. Signed By: 06/20/242050 DD/ 48 TD/TT: Eyelet Row Marker: Procedure Note Radiology, Radiologist, MD - 06/20/[address] [address] Ultrasound Report Signed Patient: JOSELIN BLACKBURNMR#: [id number] : 2005Acct:[id number] Age/Sex: 18 / FADM Date: 06/18/24 Loc: US Attending Dr: Nenita Blum D.O. Ordering Physician: Nenita Blum D.O. Date of Service: 06/18/24 Procedure(s): US pelvis w/ transvaginal Accession Number(s): [id number] cc: Nenita Blum D.O.; Physician,Non-Staff Marissa The [address] [address] Patient Name: JOSELIN BLACKBURN MRN: [id number] date: 2005 Sex: F Assigned Patient Location: US Current Patient Location: US Accession/Order Number: [id number] Exam Date: 06/18/2024 10:05 Report Date: 06/20/2024 20:49 At the request of: NENITA BLUM Procedure: US pelvis w/ transvaginal PROCEDURE: US PELVIS W/ TRANSVAGINAL, 06/18/2024 10:05 AM EDT CLINICAL INDICATIONS: Pelvic pain, abnormal uterine bleeding for 2 weeks, prior section. 2 para 2. LMP 05/23/2024. COMPARISON: 01/22/2024. TECHNIQUE: Transabdominal, transvaginal pelvic sonogram, grayscale colorand spectral assessment. FINDINGS: Uterus: 9.0 x 4.3 x 5.2 cm. Endometrial echo complex 0.3 cm. Normaluterine sonographic morphology. No focal abnormality demonstrated. Right ovary: 3.8 x 2.3 x 3.3 cm volume 15 mL. Subcentimeter follicle seen. Normal sonographic morphology. Left ovary: 3.4 x 2.2 x 2.7 cm, volume 10 mL. Subcentimeter follicle seen. Normal sonographic morphology. DUPLEX PELVIC VASCULATURE: There is intact flow within the ovarian tissue bilaterally by color-flow assessment. Arterial spectral tracing isidentified from within. Right resistive index 0.43, left 0.52. No significant free fluid. US/US pelvis w/ transvaginal IMPRESSION: 1. Normal uterine and bilateral ovarian sonographic morphology. 2. No pathology demonstrated. Electronically authenticated by: HERMELINDA SHERIDAN Date: 06/20/2024 20:49 Dictated By: Hermelinda Sheridan M.D. Signed By:06/20/242050 DD/ 48 TD/TT: Eyelet Row Marker: us Nenita Viktoria DO [facility] Final Result documented in this encounter Visit Diagnoses Not on filedocumented in this encounter Care Teams [employer] Relationship Specialty Start Date End Date Deshawn Caal MD PCP - General Family Medicine 04/14/23 06/23/24 Noemi Yoo MD [address] [address] PCP - General Family Medicine 06/24/24 Jennifer Tucker PA [address] [address] Physician Ornamental Rail Installer Family Medicine 06/24/24 documented as of this encounter
--- OUTSIDE RECORDS SUMMARY | 2025-03-19 11:04 | XMS_ITS | Encounter Summary ---
Author Organization [facility] Address [address] [place] [address] Care Team Providers Care Party Plan Dealer Name Role Phone Deshawn Caal MD Primary Care Provider + [phone] Noemi Yoo MD Primary Care Provider [phone] Jennifer Tucker Unavailable [phone] Encounter Details Date Type Department Care Team (Late st Contact Info) Description 2023 Clinisync Result Encounter NOMS External Department Unsolicited Nenita Blum DO [address] [place] [address] Social History Tobacco Use Types [...] EDT Office Visit [facility] BCP OB [address] [facility] [place] [address] Luba Corral PA [address] [facility] [place] [address] 06/24/2025 10:30 AM EDT Office Visit [facility] [address] [facility] [address] [place] [address] Jennifer Tucker PA [address] [facility] [address] [place] [address] documented as of this encounter Procedures Procedure Name Priority Date/Time Associated Diagnosis Comments US OB ANATOMY 2023 3:32 PM EST documented in this encounter Results * US OB ANATOMY (2023 3:32 PM EST) Anatomical Region Laterality Modality Other 2023 3:32 PM EST Narrative 2023 3:32 PM EST The [address] [address] Ultrasound Report Signed Patient: JOSELIN BLACKBURN MR#: [id number] : 2005 Acct:[id number] Age/Sex: 18 / F ADM Date: 08/11/23 Loc: US Attending Dr: Nenita Blum D.O. Ordering Physician: Nenita Blum D.O. Date of Service: 08/11/23 Procedure(s): US OB anatomy Accession Number(s): [id number] cc: Nenita Blum D.O.; Physician,Non-Staff MDannielle The [address] [address] Patient Name: JOSELIN BLACKBURN MRN: [id number] date: 2005 Sex: F Assigned Patient Location: US Current Patient Location: US Accession/Order Number: [id number] Exam Date: 2023 11:10 Report Date: 2023 15:32 At the request of: NENITA BLUM Procedure: US OB anatomy EXAMINATION: US OB anatomy, US OB transvaginal [...] YUDELKA by current US: 12/24/2023 US/US OB anatomy IMPRESSION: 1. Single live intrauterine with growth detailed above. Electronically authenticated by: FRANCISCO NORTH Date: 2023 15:32 Dictated By: Francisco North M.D. Signed By: 08/11/23 1534 DD/ 153 TD/TT: Creative Director: Procedure Note Radiology, Radiologist, - [address] [address] Ultrasound Report Signed Patient: JOSELIN BLACKBURNMR#: [id number] : 2005Acct:[id number] Age/Sex: 18 / FADM Date: 08/11/23 Loc: US Attending Dr: Nenita Blum D.O. Ordering Physician: Nenita Blum D.O. Date of Service: 08/11/23 Procedure(s): US OB anatomy Accession Number(s): [id number] cc: Nenita Blum D.O.; Physician,Non-Staff Marissa [address] [address] Patient Name: JOSELIN BLACKBURN MRN: [facility]:[id number] date: 2005 Sex: F Assigned Patient Location: US Current Patient Location: US Accession/Order Number: [id number] Exam Date: 2023 11:10 Report Date: 2023 15:32 At the request of: NENITA BLUM Procedure: US OB anatomy EXAMINATION: US OB anatomy, US OB transvaginal [...] YUDELKA by current US: 12/24/2023 US/US OB anatomy IMPRESSION: 1. Single live intrauterine with growth detailed above. Electronically authenticated by: FRANCISCO NORTH Date: 2023 15:32 Dictated By: Francisco North M.D. Signed By:08/11/231533 DD/ 31 TD/TT: Creative Director: us Nenita Viktoria DO [facility] Final Result documented in this encounter Visit Diagnoses Not on filedocumented in this encounter Care Teams Party Plan Dealer Relationship Specialty Start Date End Date Deshawn Caal MD PCP - General Family Medicine 04/14/23 06/23/24 Noemi Yoo MD [address] [address] PCP - General Family Medicine 06/24/24 Jennifer Tucker PA [address] [address] Physician Parcel Post Order Clerk Family Medicine 06/24/24 documented as of this encounter
--- OUTSIDE RECORDS SUMMARY | 2025-03-19 11:04 | XMS_ITS | Encounter Summary ---
Author Organization [facility] Address [address] [facility] [place] [address] Care Team Providers Care Popped Corn Oven Attendant Name Role Phone Deshawn Caal MD Primary Care Provider + [phone] Noemi Yoo MD Primary Care Provider [phone] Jennifer Tucker PA Unavailable [phone] Encounter Details Date Type Department Care Team (Late st Contact Info) Description 08/28/2023 External Result Encounter [facility] BCP OB [address] [place] [address] Nenita Blum, DO [address] [facility] [address] [place], [facility] Social History Tobacco Use Types Packs/Day Years [...] Office Visit [facility] BCP OB [address] [facility] [address] Luba Corral PA [address] [facility] [address] 06/24/2025 10:30 AM EDT Office Visit [facility] FM [address] [facility] [address] [place] [address] Jennifer Tucker PA [address] [place] [address] [place], [place] [id number] documented as of this encounter Procedures Procedure Name Priority Date/Time Associated Diagnosis Comments US OB 14+ WEEKS ANATOMY SCAN 08/28/2023 6:34 PM EST documented in this encounter Results * US OB 14+ weeks anatomy scan (08/28/2023 6:34 PM EST) Anatomical Region Laterality Modality Body Ultrasound 08/28/2023 6:34 PM EST Narrative 08/28/2023 6:33 PM EST THIS [facility] RE[facility] (Signed Final 08/28/2023 18:33) PATIENT INFO: ID #: [id number] : [birth year] (18 yrs)(F) Name: JOSELIN ALONZO Visit Date: 08/28/2023 16:46 ALEXEY PERFORMED BY: Attending: Kenny Greer MD Performed By: Jennifer Guthrie RDMS Referred By: Nenita Carrillo. Address: [address] [place] [address] [place] [address] Location: [facility] SERVICE(S) PROVIDED: Comprehensive Anatomic Survey 79180 OB Transvaginal 98100 Doppler, middle cerebral artery 55173 Echocardiogram-complete 88630 INDICATIONS: Screening for anatomic survey Z36.89 Vaginal bleeding in O46.90 History of previous with O09.899 delivery Vasa previa O69.4XX0 Placenta previa O44.00 Suspected or known abnormality in O35.9XX0 VSD VITAL SIGNS: Weight (lb): 166 Height: 5'2 BMI: 30.36 EVALUATION: Num Of Fetuses: 1 Heart Rate(bpm): 153 Cardiac Activity: Present appears normal Presentation: Breech Placenta: Vasa Previa P. Cord Insertion: Marginal (<2cm from edge) Amniotic Fluid LAMONTE FV: Subjectively within normal limits BIOMETRY: BPD: 56.8 mm G.Age: 23w 3d 48 % OFD: 75.7 mm HC: 212.4 mm G.Age: 23w 2d 35 % AC: 185.2 mm G.Age: 23w 2d 42 % FL: 39.2 mm G.Age: 22w 4d 18 % HUM: 38.3 mm G.Age: 23w 4d 47 % CER: 24.7 mm G.Age: 22w 4d 48 % LV: 5.4 mm CM: 6.4 mm TIB: 34 mm G.Age: 22w 4d 32 % CI: 75.0 % 70 - 86 FL/HC: 18.5 % 19.2 - 20.8 HC/AC: 1.15 1.05 - 1.21 FL/BPD: 69.0 % 71 - 87 FL/AC: 21.2 % 20 - 24 Est. FW: 558 gm 1 lb 4 oz 31 % OB HISTORY: : 2 Term: 0 Joce: 1 GESTATIONAL AGE: LMP: 23w 2d Date: 03/18/23 YUDELKA: 12/23/23 U/S Today: 23w 1d YUDELKA: 12/24/23 Best: 23w 2d Det. By: ANAMARIA (03/18/23) YUDELKA: 12/23/23 TARGETED ANATOMY: Central Nervous System Calvarium/Cranial V.: Appears normal Intracranial Tejal: Appears normal Cavum: Appears normal Lateral Ventricles: Appears normal Choroid Plexus: Appears normal Cereb./Vermis: Appears normal Cisterna Magna: Appears normal Midline Falx: Could not document Spine Cervical: Appears normal Thoracic: Appears normal Lumbar: Appears normal Sacral: Appears normal Head/Neck Face: Appears normal Lips: Appears normal Neck: Appears normal Nuchal Fold: Not evaluated d/t GA Nasal Bone: Present Palate: Appears normal Profile: Appears normal Orbits/Eyes: Could not document Mandible: Appears Normal Maxilla: Appears normal Thorax Thoracic Contour: Appears normal Lungs: Appears normal 4 Chamber View: VSD Cardiac Activity: Appears Normal Cardiac Rhythm: Normal Cardiac Situs: Appears normal Rt Outflow Tract: Could not document Lt Outflow Tract: Appears normal Aortic Arch: Appears normal Ductal Arch: Could not document SVC: Appears Normal Interventr. Septum: Variant, see below Cardiac Highland: Appears normal Diaphragm: Appears normal 3 Vessel View: Appears normal 3 V Trachea View: Appears Normal IVC: Appears normal Abdomen Ventral Wall: Appears normal Cord Insertion: Appears normal Situs: Appears normal Stomach: Appears normal Lt Kidney: Appears normal Rt Kidney: Appears normal Bladder: Appears normal Extremities Lt Humerus: Appears normal Rt Humerus: Appears normal Lt Forearm: Appears normal Rt Forearm: Appears normal Lt Hand: Could not document Rt Hand: Appears normal Lt Femur: Appears normal Rt Femur: Appears normal Lt Lower Leg: Appears normal Rt Lower Leg: Appears normal Lt Foot: Appears normal Rt Foot: Appears normal Other Umbilical Cord: Appears normal Masses: None visualized Genitalia: Male DOPPLER - VESSELS: Middle Cerebral Artery S/D PI %tile PSV MoM (cm/s) 5.04 1.59 25 27.26 < 1 CERVIX UTERUS ADNEXA: Cervix Length: 3.6 cm. Appears closed, without funnelling Uterus Gravid uterus Right Ovary Not visualized Left Ovary Not visualized Cul De Sac No fluid seen Adnexa No adnexal masses identified COMMENTS: 1. Ultrasound is not diagnostic for chromosomal abnormalities, will not detect all structural abnormalities, and is not diagnostic for genetic disorders even if multiple exams are performed during a given . 2. In addition to the trans abdominal approach, a trans vaginal ultrasound was also performed to optimize the visualization of the lower uterine segment and the cervix. 3. anatomic survey an Echo are incomplete due to position. Kenny Greer MD Electronically Signed Final Report 08/28/2023 18:33 IMPRESSION: 1. Single intrauterine size consistent with dates. 2. Transvaginal Cervical Length = 4.2 cm. 3. Posterior placenta is less than 2 cm away from the cervical os. 4. Vasa Previa with vessel coursing 1cm from internal os on right lateral aspect. 5. VSD identified. 6. MCA PSV = 27.26 cm/sec, less than 1 MoM, which is in the unremarkable range for the evaluation of anemia. RECOMMENDATIONS: 1. Please see [facility] consultation documentation from today's encounter. Of note, VSD was not discussed with patient yet, will need to be discussed inpatient. 2. The patient was escorted to [facility] for admission. 3. Subsequent follow up or other follow up as clinically determined by primary OB provider unless otherwise specified by [facility]. 4. Results forwarded to ordering provider so they can follow up with the patient as necessary. The copy-to physician of this order is NENITA Rg The ordering physician of this order is KENNY Parsons Procedure Note Radiology, Radiologist, - 09/23/2023 THIS EXAM WAS PERFORMED AT [facility] REPORT (Signed Final 08/28/2023 18:33) PATIENT INFO: ID #: [id number] : [birth year] (18 yrs)(F) Name: OJSELIN ROSADO Visit Date: 08/28/2023 16:46 VALENZUELA PERFORMED BY: Attending: Kenny Greer MD Performed By: Jennifer Guthrie RDMS Referred By: Nenita Carrillo. Address: [address] [place] [address] Dr. [place] [place] [address] Location: [facility] SERVICE(S) PROVIDED: Comprehensive Anatomic Survey 56127 OB Transvaginal [address] Doppler, middle cerebral artery [address] Echocardiogram-complete 41018 INDICATIONS: Screening for anatomic survey Z36.89 Vaginal bleeding in O46.90 History of previous with O09.899 delivery Vasa previa O69.4XX0 Placenta previa O44.00 Suspected or known abnormality in O35.9XX0 VSD VITAL SIGNS: Weight (lb): 166 Height: 5'2 BMI: 30.36 EVALUATION: Num Of Fetuses: 1 Heart Rate(bpm): 153 Cardiac Activity: Present appears normal Presentation: Breech Placenta: Vasa Previa P. Cord Insertion: Marginal (<2cm from edge) Amniotic Fluid LAMONTE FV: Subjectively within normal limits BIOMETRY: BPD: 56.8 mm G.Age: 23w 3d 48 % OFD: 75.7 mm HC: 212.4 mm G.Age: 23w 2d 35 % AC: 185.2 mm G.Age: 23w 2d 42 % FL: 39.2 mm G.Age: 22w 4d 18 % HUM: 38.3 mm G.Age: 23w 4d 47 % CER: 24.7 mm G.Age: 22w 4d 48 % LV: 5.4 mm CM: 6.4 mm TIB: 34 mm G.Age: 22w 4d 32 % CI: 75.0 % 70 - 86 FL/HC: 18.5 % 19.2 - 20.8 HC/AC: 1.15 1.05 - 1.21 FL/BPD: 69.0 % 71 - 87 FL/AC: 21.2 % 20 - 24 Est. FW: 558 gm 1 lb 4 oz 31 % OB HISTORY: : 2 Term: 0 Joce: 1 GESTATIONAL AGE: LMP: 23w 2d Date: 03/18/23 YUDELKA: 12/23/23 U/S Today: 23w 1d YUDELKA: 12/24/23 Best: 23w 2d Det. By: LMP (03/18/23) YUDELKA: 12/23/23 TARGETED ANATOMY: Central Nervous System Calvarium/Cranial V.: Appears normal Intracranial Tejal: Appears normal Cavum: Appears normal Lateral Ventricles: Appears normal Choroid Plexus: Appears normal Cereb./Vermis: Appears normal Cisterna Magna: Appears normal Midline Falx: Could not document Spine Cervical: Appears normal Thoracic: Appears normal Lumbar: Appears normal Sacral: Appears normal Head/Neck Face: Appears normal Lips: Appears normal Neck: Appears normal Nuchal Fold: Not evaluated d/t GA Nasal Bone: Present Palate: Appears normal Profile: Appears normal Orbits/Eyes: Could not document Mandible: Appears Normal Maxilla: Appears normal Thorax Thoracic Contour: Appears normal Lungs: Appears normal 4 Chamber View: VSD Cardiac Activity: Appears Normal Cardiac Rhythm: Normal Cardiac Situs: Appears normal Rt Outflow Tract: Could not document Lt Outflow Tract: Appears normal Aortic Arch: Appears normal Ductal Arch: Could not document SVC: Appears Normal Interventr. Septum: Variant, see below Cardiac Highland: Appears normal Diaphragm: Appears normal 3 Vessel View: Appears normal 3 V Trachea View: Appears Normal IVC: Appears normal Abdomen Ventral Wall: Appears normal Cord Insertion: Appears normal Situs: Appears normal Stomach: Appears normal Lt Kidney: Appears normal Rt Kidney: Appears normal Bladder: Appears normal Extremities Lt Humerus: Appears normal Rt Humerus: Appears normal Lt Forearm: Appears normal Rt Forearm: Appears normal Lt Hand: Could not document Rt Hand: Appears normal Lt Femur: Appears normal Rt Femur: Appears normal Lt Lower Leg: Appears normal Rt Lower Leg: Appears normal Lt Foot: Appears normal Rt Foot: Appears normal Other Umbilical Cord: Appears normal Masses: None visualized Genitalia: Male DOPPLER - VESSELS: Middle Cerebral Artery S/D PI %tile PSV MoM (cm/s) 5.04 1.59 25 27.26 < 1 CERVIX UTERUS ADNEXA: Cervix Length: 3.6 cm. Appears closed, without funnelling Uterus Gravid uterus Right Ovary Not visualized Left Ovary Not visualized Cul De Sac No fluid seen Adnexa No adnexal masses identified COMMENTS: 1. Ultrasound is not diagnostic for chromosomal abnormalities, will not detect all structural abnormalities, and is not diagnostic for genetic disorders even if multiple exams are performed during a given . 2. In addition to the trans abdominal approach, a trans vaginal ultrasound was also performed to optimize the visualization of the lower uterine segment and the cervix. 3. anatomic survey an Echo are incomplete due to position. Kenny Greer MD Electronically Signed Final Report 08/28/2023 18:33 IMPRESSION: 1. Single intrauterine size consistent with dates. 2. Transvaginal Cervical Length = 4.2 cm. 3. Posterior placenta is less than 2 cm away from the cervical os. 4. Vasa Previa with vessel coursing 1cm from internal os on right lateral aspect. 5. VSD identified. 6. MCA PSV = 27.26 cm/sec, less than 1 MoM, which is in the unremarkable range for the evaluation of anemia. RECOMMENDATIONS: 1. Please see [facility] consultation documentation from today's encounter. Of note, VSD was not discussed with patient yet, will need to be discussed inpatient. 2. The patient was escorted to [facility] for admission. 3. Subsequent follow up or other follow up as clinically determined by primary OB provider unless otherwise specified by [facility]. 4. Results forwarded to ordering provider so they can follow up with the patient as necessary. The copy-to physician of this order is NENITA Rg The ordering physician of this order is KENNY Parsons us Nenita Blum DO IMG OB US PROCEDURES Final Resul t documented in this encounter Visit Diagnoses Not on filedocumented in this encounter Care Teams Popped Corn Oven Attendant Relationship Specialty Start Date End Date Deshawn Caal MD PCP - General Family Medicine 04/14/23 06/23/24 Noemi Yoo MD [address] [id number] PCP - General Family Medicine 06/24/24 Jennifer Tucker PA [address] [address] Physician Alternative Financing Specialist Family Medicine 06/24/24 documented as of this encounter
--- OUTSIDE RECORDS SUMMARY | 2025-03-19 11:04 | XMS_ITS | Encounter Summary ---
Author Organization [facility] Address [address] [place] [address] Care Team Providers Care Bartenders Name Role Phone Deshawn Caal MD Primary Care Provider [phone] Noemi Yoo MD Primary Care Provider [phone] Jennifer Tucker PA Unavailable [phone] Encounter Details Date Type Department Care Team (Late st Contact Info) Description 06/16/2024 Abstract [facility] [address] [place] [address] [place] [address] Deshawn Caal MD [address] [place] [address] Social History Tobacco Use Types Packs/Day Years [...] 01/28/2024 How often do you attend chur or anabaptist services? More than 4 times per year 01/28/2024 Do you belong to any clubs o r organizations such as muslim groups, unions, fraternal or athletic groups, or [...] and heating? Not hard at all 01/28/2024 [facility] - Occupational [...] place to sleep or slept in a long-term (including now)? No 01/28/2024 Comments No Sex [...] EDT Office Visit [facility] [address] [facility] [place] [address] Luba Corral PA [address] [facility] [address] [place], [place] [id number] 06/24/2025 10:30 AM EDT Office Visit [facility] [address] [facility] [address] [place] [address] Jennifer Tucker PA [address] [place] [address] [place] [address] documented as of this encounter Visit Diagnoses Not on filedocumented in this encounter Care Teams Bartenders Relationship Specialty Start Date End Date Deshawn Caal MD PCP - General Family Medicine 04/14/23 06/23/24 Noemi Yoo MD [address] [place] [address] [place] [address] PCP - General Family Medicine 06/24/24 Jennifer Tucker PA [address] [place] [address] [place] [address] Physician Hearth Feeder Family Medicine 06/24/24 documented as of this encounter
--- OUTSIDE RECORDS SUMMARY | 2025-03-19 11:04 | XMS_ITS | Encounter Summary ---
Author Organization [facility] Address [address] [place] [address] Care Team Providers Care Director Payment Name Role Phone Noemi Yoo MD Primary Care Provider [phone] Jennifer Tucker Unavailable [phone] Encounter Details Date Type Department Care Team (Late st Contact Info) Description 01/20/2025 Results Follow-Up [facility] [address] [facility] [address] [place] [address] Jennifer Tucker PA [address] [facility] 110 [place] [address] Low ferritin (Primary Dx); Vitamin D deficiency Social History Tobacco Use Types Packs/Day Years [...] How often do you attend chur or episcopalian services? More than 4 times per year 01/28/2024 Do you belong to any clubs o r organizations such as confucianism groups, unions, fraternal or athletic groups, or [...] Recorded Patient Health Questionnaire-2 Score 0 01/18/2025 [facility] - [facility] Stress Questionnaire Answer Date [...] EDT Office Visit [facility] [address] [facility] [place] [address] Luba Corral PA [address] [facility] [address] [place], [place] [id number] 06/24/2025 10:30 AM EDT Office Visit [facility] [address] [facility] [address] [place] [address] Jennifer Tucker PA [address] [place] [address] [place] [address] Scheduled Orders Name Type Priority Associated Diagnoses Orde r Schedule Ferritin Lab Routine Low ferritin Expected: 03/04/2025 (Approximate), Expires: 01/20/2026 documented as of this encounter Visit Diagnoses Diagnosis Low ferritin- Primary Other nonspecific findings on examination of blood Vitamin D deficiency documented in this encounter Care Teams Director Payment Relationship Specialty Start Date End Date Noemi Yoo MD [address] [place] [address] [place] [address] PCP - General Family Medicine 06/24/24 Jennifer Tucker PA [address] [place] [address] [place] [address] Physician Hyperion Developer Family Medicine 06/24/24 documented as of this encounter
== END 2025-03-19 10:57 | disposition home or self-care (01) ==
PROVIDERS: PCP Physician Assistant; Visit Provider Physician Assistant
DX: R79.0 Abnormal level of blood mineral (principal)
CPT/HCPCS: 36415; 82728

== ENCOUNTER 2025-03-29 15:37 | Outpatient (OUT) | payer BC, OTHER, SELFPAY ==
--- OUTSIDE RECORDS SUMMARY | 2025-03-29 13:00 | XMS_ITS | Encounter Summary ---
Author Organization [facility] Address [address] [facility] [place] [address] Care Team Providers Care Wrapper Stemmer Hand Name Role Phone Noemi Yoo MD Primary Care Provider [phone] Jennifer Tucker Unavailable [phone] Reason for Visit * Reason Comments Well Women Visit Encounter Details Date Type Department Care Team (Late st Contact Info) Description 03/29/2025 1:00 PM EDT Office Visit [facility] [address] [facility] [place] [address] Luba Corral PA [address] [facility] [address] [place], [place] [phone] Well woman exam with routine gynecological exam [...] How often do you attend chur or tenriism services? More than 4 times per year 01/28/2024 Do you belong to any clubs o r organizations such as sabianist groups, unions, fraternal or athletic groups, or [...] Recorded Patient Health Questionnaire-2 Score 0 01/18/2025 [facility] - Occupational Stress [...] place to sleep or slept in a assisted (including now)? No 01/28/2024 Comments No Sex and Gender Information Value Date Recorded Sex Assigned at Not on file Legal Sex Female 6:51 PM EDT Gender Identity Not on file Sexual Orientation Not on file Travel History Travel Start Travel End [place] 03/22/2025 03/27/2025 documented as of this encounter [...] Diagnosis Date Noted Antepartum bleeding, third trimester ([facility]) 06/24/2024 Abdominal cramping complicating , antepartum ([facility]) 06/24/2024 Other acute sinusitis 10/27/2017 UTI (urinary tract infection) 06/24/2024 Adenoid hypertrophy 06/23/2017 Excessive and frequent menstruation 06/24/2024 Past Medical History: Diagnosis Date Anemia Irregular menses Ovarian cyst Polycystic ovary syndrome Type A blood, Rh positive Urinary tract infection HISTORY PAST MEDICAL HISTORY SOCIAL HISTORY Past Medical History: Diagnosis Date Abdominal cramping complicating , antepartum ([facility]) 06/24/2024 Anemia Antepartum bleeding, third trimester ([facility]) 06/24/2024 Irregular menses Ovarian cyst Polycystic [...] nursing note reviewed. Exam conducted with a regulator mechanic present. Vitals: Estimated body mass index is [...] EDT Office Visit [facility] [address] [place] [address] Jennifer Tucker PA [address] [address] 04/04/2026 10:00 AM EDT Office Visit [facility] [address] [facility] [place] [address] Luba Corral PA [address] [facility] [address] [place], [place] [address] Scheduled Orders Name Type Priority Associated Diagnoses [...] examination documented in this encounter Care Teams Wrapper Stemmer Hand Relationship Specialty Start Date End Date Noemi Yoo MD [address] [place] [address] [address] PCP - General Family Medicine 06/24/24 Jennifer Tucker PA [address] [place] [address] [address] Physician Exchange Mechanic Family Medicine 06/24/24 documented as of this encounter
--- OUTSIDE RECORDS SUMMARY | 2025-03-29 15:40 | XMS_ITS | Encounter Summary ---
Author Organization [facility] Address [address] [place] [address] Care Team Providers Care Felled Seam Operator Name Role Phone Deshawn Caal MD Primary Care Provider [phone] Noemi Yoo MD Primary Care Provider [phone] Jennifer Tucker PA Unavailable [phone] Encounter Details Date Type Department Care Team (Late st Contact Info) Description 09/08/2023 Abstract [facility] [address] [place] [address] Davin Blum, DO [address] [facility] [address] Tanja Shirley, [facility] Social History Tobacco Use Types Packs/Day [...] file Travel History Travel Start Travel End [place] 03/22/2025 03/27/2025 COVID-19 Exposure Response Date Recorded In the [...] Visit [facility] [address] [facility] [address] [place] [address] Jennifer Tucker PA [address] [facility] 110 [place] [address] 04/04/2026 10:00 AM EDT Office Visit [facility] [address] [facility] [place] [address] Luba Corral PA [address] [facility] [place] [address] documented as of this encounter Visit Diagnoses Not on filedocumented in this encounter Care Teams Felled Seam Operator Relationship Specialty Start Date End Date Deshawn Caal MD PCP - General Family Medicine 04/14/23 06/23/24 Noemi Yoo MD [address] [facility] 110 [place] [address] PCP - General Family Medicine 06/24/24 Jennifer Tucker PA [address] [facility] [address] [place] [address] Physician Ekg Monitor Tech Family Medicine 06/24/24 documented as of this encounter
--- OUTSIDE RECORDS SUMMARY | 2025-03-29 15:40 | XMS_ITS | Encounter Summary ---
Author Organization [facility] Address [address] [facility] [place] [address] Care Team Providers Care Finance Advisor Name Role Phone Deshawn Caal MD Primary Care Provider [phone] Noemi Yoo MD Primary Care Provider [phone] Jennifer Tucker PA Unavailable [phone] Encounter Details Date Type Department Care Team (Late st Contact Info) Description 08/28/2023 External Result Encounter [facility] [address] [place] [address] Nenita Blum, DO [address] Tanja Shirley, [facility] Social History Tobacco Use Types Packs/Day Years [...] file Travel History Travel Start Travel End [place] 03/22/2025 03/27/2025 COVID-19 Exposure Response Date Recorded [...] EDT Office Visit [facility] 112 [facility] 110 [place] [address] Jennifer Tucker PA 112 [facility] 110 [place] [address] 04/04/2026 10:00 AM EDT Office Visit [facility] [address] [facility] [place] [address] Luba Corral PA [address] [facility] [place] [address] documented as of this encounter Procedures Procedure Name Priority Date/Time Associated Diagnosis Comments US OB 14+ WEEKS ANATOMY SCAN 08/28/2023 6:34 PM EST documented in this encounter Results * US OB 14+ weeks anatomy scan (08/28/2023 6:34 PM EST) Anatomical Region Laterality Modality Body Ultrasound 08/28/2023 6:34 PM EST Narrative 08/28/2023 6:33 PM EST [facility] RE[facility] (Signed Final 08/28/2023 18:33) PATIENT INFO: ID #: [id number] : [birth year] (18 yrs)(F) Name: JOSELIN ROSADO Visit Date: 08/28/2023 16:46 VALENZUELA PERFORMED BY: Attending: Kenny Greer MD Performed By: Jennifer Guthrie RD Referred By: Nenita Carrillo. Address: [address] [place] [address] [place] [address] Location: [facility] SERVICE(S) PROVIDED: Comprehensive Anatomic Survey 28850 OB Transvaginal 58092 Doppler, middle cerebral artery 13362 Echocardiogram-complete 69693 INDICATIONS: Screening for anatomic survey Z36.89 Vaginal [...] Normal Interventr. Septum: Variant, see below Cardiac [place]: Appears normal Diaphragm: Appears normal 3 Vessel [...] evaluation of anemia. RECOMMENDATIONS: 1. Please see [facility] consultation documentation from today's encounter. Of note, VSD was not discussed with patient yet, will need to be discussed inpatient. 2. The patient was escorted to [facility] for admission. 3. Subsequent follow up or other follow up as clinically determined by primary OB provider unless otherwise specified by [facility]. 4. Results forwarded to ordering provider so they can follow up with the patient as necessary. The copy-to physician of this order is NENITA Rg The ordering physician of this order is KENNY Parsons Procedure Note Radiology, Radiologist, - 09/23/2023 THIS EXAM WAS PERFORMED AT [facility] REPORT (Signed Final 08/28/2023 18:33) PATIENT INFO: ID #: [id number] : [birth year] (18 yrs)(F) Name: JOSELIN ROSADO Visit Date: 08/28/2023 16:46 VALENZUELA PERFORMED BY: Attending: Kenny Greer MD Performed By: Jennifer Guthrie RDMS Referred By: Nenita Carrillo. Address: [address] [place] [address] Dr. Agrawal [facility] [place] [address] Location: [facility] SERVICE(S) PROVIDED: Comprehensive Anatomic Survey 54939 OB Transvaginal 05635 Doppler, middle cerebral artery 41943 Echocardiogram-complete 73816 INDICATIONS: Screening for anatomic survey Z36.89 Vaginal [...] Normal Interventr. Septum: Variant, see below Cardiac [place]: Appears normal Diaphragm: Appears normal 3 Vessel [...] inpatient. 2. The patient was escorted to [facility] for admission. 3. Subsequent follow up or other follow up as clinically determined by primary OB provider unless otherwise specified by [facility]. 4. Results forwarded to ordering provider so they can follow up with the patient as necessary. The copy-to physician of this order is NENITA Rg The ordering physician of this order is KENNY Parsons us Nenita Blum DO IMG OB US PROCEDURES Final Resul t documented in this encounter Visit Diagnoses Not on filedocumented in this encounter Care Teams Finance Advisor Relationship Specialty Start Date End Date Deshawn Caal MD PCP - General Family Medicine 04/14/23 06/23/24 Noemi Yoo MD [address] [facility] 110 [place], [place] [phone] PCP - General Family Medicine 06/24/24 Jennifer Tucker PA [address] [facility] 110 [place] [address] Physician Professional Fighter Family Medicine 06/24/24 documented as of this encounter
--- OUTSIDE RECORDS SUMMARY | 2025-03-29 15:40 | XMS_ITS | Encounter Summary ---
Author Organization [facility] Address [address] [facility] [place] [address] Care Team Providers Care Food Service Substitute Name Role Phone Deshawn Caal MD Primary Care Provider + [phone] Noemi Yoo MD Primary Care Provider [phone] Jennifer Tucker Unavailable [phone] Encounter Details Date Type Department Care Team (Late Contact Info) Description 01/22/2024 Clinisync Result Encounter NOMS External Department Unsolicited Nenita Blum, DO [address] [facility] [place] [address] Social History Tobacco Use Types [...] file Travel History Travel Start Travel End [place] 03/22/2025 03/27/2025 documented as of this encounter Plan of Treatment Upcoming Encounters Date Type Department Care Team (Late Contact Info) Description 06/24/2025 10:30 AM EDT Office Visit [facility] FM 112 [facility] 110 [place] [address] Jennifer Tucker PA 112 [facility] 110 [place] [address] 04/04/2026 10:00 AM EDT Office Visit [facility] BCP OB [address] [facility] [place] [address] Luba Corral PA [address] [place] [address] documented as of this encounter Procedures Procedure Name Priority Date/Time Associated Diagnosis Comments US PELVIS W/ TRANSVAGINAL 01/22/2024 9:26 AM EDT documented in this encounter Results * US PELVIS W/ TRANSVAGINAL (01/22/2024 9:26 AM EDT) Anatomical Region Laterality Modality Other 01/22/2024 9:26 AM EDT Narrative 01/22/2024 9:28 AM EDT [address] [address] Ultrasound Report Signed Patient: JOSELIN BLACKBURN MR#: [id number] : 2005 Acct:[id number] Age/Sex: 18 / F ADM Date: 01/22/24 Loc: NOMS Attending Dr: Nenita Blum D.O. Ordering Physician: Nenita Blum D.O. Date of Service: 01/22/24 Procedure(s): US pelvis w/ transvaginal Accession Number(s): [id number] cc: Nenita Blum D.O.; Physician,Non-Staff M.Kurt The [address] [id number] Patient Name: JOSELIN BLACKBURN MRN: [id number]:[id number] date: 2005 Sex: F Assigned Patient Location: [facility] Current Patient Location: [facility] Accession/Order Number: [id number] Exam Date: 01/22/2024 08:24 Report Date: 01/22/2024 [...] Dictated By: Deirdre Espino M.D. Signed By: 01/22/2428 DD/ 5 TD/TT: Supervisor Trust Accounts: Procedure Note Radiology, Radiologist, MD - 01/22/2024 [place] [address] Ultrasound Report Signed Patient: JOSELIN BLACKBURNMR#: [id number] : 2005Acct:[id number] Age/Sex: 18 / FADM Date: 01/22/24 Loc: [facility]OMS Attending Dr: Nenita Blum D.O. Ordering Physician: Nenita Blum D.O. Date of Service: 01/22/24 Procedure(s): US pelvis w/ transvaginal Accession Number(s): [id number] cc: Nenita Blum D.O.; Physician,Non-Staff Marissa The [place] [id number] Patient Name: JOSELIN BLACKBURN MRN: TBH:[id number] date: 2005 Sex: F Assigned Patient Location: [facility] Current Patient Location: [facility] Accession/Order Number: [id number] Exam Date: 01/22/2024 08:24 Report Date: 01/22/2024 09:26 At the request of: NENITA VIKTORIA Procedure: US pelvis w/ transvaginal EXAM: Pelvic [...] 09:26 Dictated By: Deirdre Espino M.D. Signed By:01/22/24927 DD/ 5 TD/TT: Supervisor Trust Accounts: us Nenita Viktoria DO [facility] Final Result documented in this encounter Visit Diagnoses Not on filedocumented in this encounter Care Teams Food Service Substitute Relationship Specialty Start Date End Date Deshawn Caal MD PCP - General Family Medicine 04/14/23 06/23/24 Noemi Yoo MD [address] [facility] 110 [place] [address] PCP - General Family Medicine 06/24/24 Jennifer Tucker PA [address] [facility] 110 [place] [address] Physician Bottle Gauger Family Medicine 06/24/24 documented as of this encounter
--- OUTSIDE RECORDS SUMMARY | 2025-03-29 15:41 | XMS_ITS | Encounter Summary ---
Author Organization [facility] Address [address] [place] [address] Care Team Providers Care Credit Control Administrator Name Role Phone Deshawn Caal MD Primary Care Provider + [phone] Noemi Yoo MD Primary Care Provider [phone] Jennifer Tucker Unavailable [phone] Encounter Details Date Type Department Care Team (Late st Contact Info) Description 2023 Clinisync Result Encounter NOMS External Department Unsolicited Nenita Blum, DO [address] [facility] [place] [address] Social History Tobacco Use Types [...] file Travel History Travel Start Travel End [place] 03/22/2025 03/27/2025 COVID-19 Exposure Response Date Recorded [...] EDT Office Visit [facility] CI FM 112 [facility] 110 [place] [address] Jennifer Tucker PA 112 [facility] 110 [place] [address] 04/04/2026 10:00 AM EDT Office Visit [facility] BCP OB [address] [facility] [place] [address] Luba Corral PA [address] [facility] [address] [place], [place] [address] documented as of this encounter Procedures Procedure Name Priority Date/Time Associated Diagnosis Comments US OB ANATOMY 2023 3:32 PM EST documented in this encounter Results * US OB ANATOMY (2023 3:32 PM EST) Anatomical Region Laterality Modality Other 2023 3:32 PM EST Narrative 2023 3:32 PM EST [address] [address] Ultrasound Report Signed Patient: JOSELIN BLACKBURN MR#: [id number] : 2005 Acct:[id number] Age/Sex: 18 / F ADM Date: 08/11/23 Loc: US Attending Dr: Nenita Blum D.O. Ordering Physician: Nenita Blum D.O. Date of Service: 08/11/23 Procedure(s): US OB anatomy Accession Number(s): [id number] cc: Nenita Blum D.O.; Physician,Non-Staff Marissa The [address] [address] Patient Name: JOSELIN BLACKBURN MRN: [id number] date: 2005 Sex: F Assigned Patient Location: US Current Patient Location: US Accession/Order Number: [id number] Exam Date: 2023 11:10 Report Date: 2023 [...] North M.D. Signed By: 08/11/23 1534 DD/ 31 TD/TT: Fabrication Supervisor: Procedure Note Radiology, Radiologist, - 20[address] [place] [address] Ultrasound Report Signed Patient: JOSELIN BLACKBURN#: [id number] : 2005Acct:[id number] Age/Sex: 18 / FADM Date: 08/11/23 Loc: US Attending Dr: Nenita Blum D.O. Ordering Physician: Nenita Blum D.O. Date of Service: 08/11/23 Procedure(s): US OB anatomy Accession Number(s): [id number] cc: Nenita Blum D.O.; Physician,Non-Staff Marissa [place] [id number] Patient Name: JOSELIN BLACKBURN MRN: [id number]:[id number] date: 2005 Sex: F Assigned Patient Location: US Current Patient Location: US Accession/Order Number: [id number] Exam Date: 2023 11:10 Report Date: 2023 [...] 15:32 Dictated By: Francisco North M.D. Signed By:08/11/23 1534 DD/ 31 TD/TT: Fabrication Supervisor: us Nenita Viktoria DO [facility] Final Result documented in this encounter Visit Diagnoses Not on filedocumented in this encounter Care Teams Credit Control Administrator Relationship Specialty Start Date End Date Deshawn Caal MD PCP - General Family Medicine 04/14/23 06/23/24 Noemi Yoo MD [address] [place] [address] [place], [place] [address] PCP - General Family Medicine 06/24/24 Jennifer Tucker PA [address] [place] [address] [place] [address] Physician Research Clerk Family Medicine 06/24/24 documented as of this encounter
--- OUTSIDE RECORDS SUMMARY | 2025-03-29 15:41 | XMS_ITS | Encounter Summary ---
Author Organization [facility] Address [address] [place] [address] Care Team Providers Care Painter Barrel Name Role Phone Deshawn Caal MD Primary Care Provider + [phone] Noemi Yoo MD Primary Care Provider [phone] Jennifer Tucker Unavailable [phone] Encounter Details Date Type Department Care Team (Late st Contact Info) Description 06/20/2024 Clinisync Result Encounter NOMS External Department Unsolicited Nenita Blum, DO [address] [facility] [place] [address] Social History Tobacco Use Types [...] often do you attend chur ch or rastafarian services? More than 4 times per year 01/28/2024 Do you belong to any clubs o r organizations such as yazdanism groups, unions, fraternal or athletic groups, or [...] and heating? Not hard at all 01/28/2024 [facility] - [...] place to sleep or slept in a fci (including now)? No 01/28/2024 Comments No Sex and Gender Information Value Date Recorded Sex Assigned at Not on file Legal Sex Female 6:51 PM EDT Gender Identity Not on file Sexual Orientation Not on file Travel History Travel Start Travel End [place] 03/22/2025 03/27/2025 documented as of this encounter Plan of Treatment Upcoming Encounters Date Type Department Care Team (Late st Contact Info) Description 06/24/2025 10:30 AM EDT Office Visit [facility] CI FM [address] [facility] 110 [place] [address] Jennifer Tucker PA [address] [facility] 110 [place] [address] 04/04/2026 10:00 AM EDT Office Visit [facility] BCP OB [address] [facility] [place] [address] Luba Corral PA [address] [facility] [place] [address] documented as of this encounter Procedures Procedure Name Priority Date/Time Associated Diagnosis Comments US PELVIS W/ TRANSVAGINAL 06/20/2024 8:49 PM EDT documented in this encounter Results * US PELVIS W/ TRANSVAGINAL (06/20/2024 8:49 PM EDT) Anatomical Region Laterality Modality Other 06/20/2024 8:49 PM EDT Narrative 06/20/2024 8:51 PM EDT The [address] [address] Ultrasound Report Signed Patient: JOSELIN BLACKBURN MR#: [id number] : 2005 Acct:[id number] Age/Sex: 18 / F ADM Date: 06/18/24 Loc: US Attending Dr: Nenita Blum D.O. Ordering Physician: Nenita Blum D.O. Date of Service: 06/18/24 Procedure(s): US pelvis w/ transvaginal Accession Number(s): [id number] cc: Nenita Blum D.O.; Physician,Non-Staff Marissa [place] [id number] Patient Name: JOSELIN BLACKBURN MRN: [facility]:[id number] date: 2005 Sex: F Assigned Patient Location: Current Patient Location: US Accession/Order Number: [id number] Exam Date: 06/18/2024 10:05 Report Date: 06/20/2024 [...] M.D. Signed By: 06/20/242050 DD/ 48 TD/TT: Engine Lathe Set Up Operator Tool: Procedure Note Radiology, Radiologist, MD - 06/20/[address] [address] Ultrasound Report Signed Patient: JOSELIN BLACKBURNMR#: [id number] : 2005Acct:[id number] Age/Sex: 18 / FADM Date: 06/18/24 Loc: US Attending Dr: Nenita Blmu D.O. Ordering Physician: Nenita Blum D.O. Date of Service: 06/18/24 Procedure(s): US pelvis w/ transvaginal Accession Number(s): [id number] cc: Nenita Blum D.O.; Physician,Non-Staff Marissa The [address] [address] Patient Name: JOSELIN BLACKBURN MRN: [facility]:[id number] date: 2005 Sex: F Assigned Patient Location: US Current Patient Location: US Accession/Order Number: [id number] Exam Date: 06/18/2024 10:05 Report Date: 06/20/2024 [...] Sheridan M.D. Signed By:06/20/242050 DD/ 48 TD/TT: Engine Lathe Set Up Operator Tool: us Nenita Viktoria DO [facility] Final Result documented in this encounter Visit Diagnoses Not on filedocumented in this encounter Care Teams Painter Barrel Relationship Specialty Start Date End Date Deshawn Caal MD PCP - General Family Medicine 04/14/23 06/23/24 Noemi Yoo MD [address] [address] PCP - General Family Medicine 06/24/24 Jennifer Tucker PA [address] [address] Physician Waistband Setter Family Medicine 06/24/24 documented as of this encounter
--- OUTSIDE RECORDS SUMMARY | 2025-03-29 15:41 | XMS_ITS | Encounter Summary ---
Author Organization [facility] Address [address] [place] [address] Care Team Providers Care Flagman Name Role Phone Deshawn Caal MD Primary Care Provider [phone] Noemi Yoo MD Primary Care Provider [phone] Jennifer Tucker PA Unavailable [phone] Encounter Details Date Type Department Care Team (Late st Contact Info) Description 06/16/2024 Abstract [facility] CI FM [address] [facility] 110 [place] [address] Deshawn Caal MD [address] [place] [address] Social History Tobacco Use Types Packs/Day Years [...] How often do you attend chur or gnosticist services? More than 4 times per year 01/28/2024 Do you belong to any clubs o r organizations such as mu-ism groups, unions, fraternal or athletic groups, or [...] and heating? Not hard at all 01/28/2024 [facility] - Occupational [...] place to sleep or slept in a prison (including now)? No 01/28/2024 Comments No Sex and Gender Information Value Date Recorded Sex Assigned at Not on file Legal Sex Female 6:51 PM EDT Gender Identity Not on file Sexual Orientation Not on file Travel History Travel Start Travel End [place] 03/22/2025 03/27/2025 documented as of this encounter Plan of Treatment Upcoming Encounters Date Type Department Care Team (Late st Contact Info) Description 06/24/2025 10:30 AM EDT Office Visit [facility] CI FM [address] [facility] 110 [place] [address] Jennifer Tucker PA [address] [facility] 110 [place] [address] 04/04/2026 10:00 AM EDT Office Visit [facility] BCP OB 102 [facility] [place] [address] Luba Corral PA [address] [facility] [place] [address] documented as of this encounter Visit Diagnoses Not on filedocumented in this encounter Care Teams Flagman Relationship Specialty Start Date End Date Deshawn Caal MD PCP - General Family Medicine 04/14/23 06/23/24 Noemi Yoo MD [address] [facility] 110 [place] [address] PCP - General Family Medicine 06/24/24 Jennifer Tucker PA [address] [facility] 110 [place] [address] Physician Record Keeper Family Medicine 06/24/24 documented as of this encounter
--- OUTSIDE RECORDS SUMMARY | 2025-03-29 15:41 | XMS_ITS | Encounter Summary ---
Author Organization [facility] Address [address] [facility] [place] [address] Care Team Providers Care Stator Tester Name Role Phone Noemi Yoo MD Primary Care Provider [phone] Jennifer Tucker Unavailable [phone] Encounter Details Date Type Department Care Team (Late st Contact Info) Description 03/19/2025 Clinisync Result Encounter NOMS External Department Unsolicited Jennifer Tucker PA [address] [place] [address] [place] [address] Social History Tobacco Use Types Packs/Day Years [...] often do you attend chur ch or cheondoism services? More than 4 times per year [...] Recorded Patient Health Questionnaire-2 Score 0 01/18/2025 [facility] - Occupational [...] file Travel History Travel Start Travel End [place] 03/22/2025 03/27/2025 documented as of this encounter Plan of Treatment Upcoming Encounters Date Type Department Care Team (Late st Contact Info) Description 06/24/2025 10:30 AM EDT Office Visit [facility] CI FM [address] [facility] 110 [place] [address] Jennifer Tucker PA [address] [facility] 110 [place] [address] 04/04/2026 10:00 AM EDT Office Visit [facility] BCP OB 102 [facility] [place] [address] Luba Corral PA [address] [facility] [address] documented as of this encounter Procedures Procedure Name Priority Date/Time Associated Diagnosis Comments [facility] FERRITIN Routine 03/19/2025 11:13 AM EDT documented in this encounter Results * [facility] FERRITIN (03/19/2025 11:13 AM EDT) FERRITIN 35.0 8.0 - 252.0 ng/mL [facility] 03/19/2025 11:1 3 AM EDT 03/19/2025 11:14 AM EDT Narrative [facility] - 03/19/2025 2:23 PM EDT us Jennifer LAU [facility] Final Result [facility] documented in this encounter Visit Diagnoses Not on filedocumented in this encounter Care Teams Stator Tester Relationship Specialty Start Date End Date Noemi Yoo MD [address] [facility] 110 [place] [address] PCP - General Family Medicine 06/24/24 Jennifer Tucker PA [address] [facility] 110 [place] [address] Physician Buffet Waiter/Waitress Family Medicine 06/24/24 documented as of this encounter
--- OUTSIDE RECORDS SUMMARY | 2025-03-29 15:41 | XMS_ITS | Encounter Summary ---
Author Organization [facility] tem Address [id number] [address] [place] [address] Care Team Providers Care Quill Skinner Name Role Phone Kalina Caalew Mi CASANOVA Primary Care Provider [phone] Encounter Details Date Type Department Care Team (Late st Contact Info) Description 08/26/2023 Orders Only Maternal- Medicine at [facility] [address] [place] [address] Ref Prov, [place] [address] Social History Tobacco Use Types Packs/Day Years [...] 11:22 AM EST) Anatomical Region Laterality Modality OB-SPLICER MACHINE OPERATOR Ultrasound us Not In System Ref Prov IMG US ORDERABLES Final R esult * Unlisted Genetic Test (06/05/2023 11:25 AM EDT) us Not In System Ref Prov LAB BLOOD ORDERABLES Joelle l Result MANUALLY TRANSCRIBED RESULTS * Ultrasound limited 1 or more fetus (05/15/2023 11:20 AM EDT) Anatomical Region Laterality Modality OB-SPLICER MACHINE OPERATOR Ultrasound us Not In System Ref Prov IMG US ORDERABLES Final R esult documented in this encounter Visit Diagnoses Not on filedocumented in this encounter Additional Health Concerns Infection Onset Date Last Indicated Resolved Time COVID-19 Rule-Out 10/08/2023 10/08/2023 10/08/2023 11:05 AM EST documented as of this encounter Care Teams Quill Skinner Relationship Specialty Start Date End Date Deshawn Caal DO PCP - General Family Medicine 06/23/17 documented as of this encounter
--- OUTSIDE RECORDS SUMMARY | 2025-03-29 15:41 | XMS_ITS | Encounter Summary ---
Author Organization [facility] Address [address] [place] [address] Care Team Providers Care Marine Fisheries Technician Name Role Phone Noemi Yoo MD Primary Care Provider [phone] Jennifer Tucker Unavailable [phone] Encounter Details Date Type Department Care Team (Late st Contact Info) Description 01/20/2025 Results Follow-Up [facility] CI FM [address] [facility] 110 [place] [address] Jennifer Tucker PA [address] [facility] 110 [place] [address] Low ferritin (Primary Dx); Vitamin D deficiency [...] How often do you attend chur or latter day services? More than 4 times per year 01/28/2024 Do you belong to any clubs o r organizations such as gnosticist groups, unions, fraternal or athletic groups, or [...] Recorded Patient Health Questionnaire-2 Score 0 01/18/2025 [facility] - Occupational Stress Questionnaire Answer Date [...] file Travel History Travel Start Travel End [place] 03/22/2025 03/27/2025 documented as of this encounter Plan of Treatment Upcoming Encounters Date Type Department Care Team (Late st Contact Info) Description 06/24/2025 10:30 AM EDT Office Visit [facility] CI FM [address] [place] [address] [place] [address] Jennifer Tucker PA [address] [facility] 110 [place] [address] 04/04/2026 10:00 AM EDT Office Visit [facility] BCP OB 102 [facility] [place] [address] Luba Corral PA [address] [facility] [address] [place], [place] [address] documented as of this encounter Visit Diagnoses Diagnosis Low ferritin- Primary Other nonspecific findings on examination of blood Vitamin D deficiency documented in this encounter Care Teams Marine Fisheries Technician Relationship Specialty Start Date End Date Noemi Yoo MD [address] [place] [address] [place] [address] PCP - General Family Medicine 06/24/24 Jennifer Tucker PA [address] [place] [address] [place] [address] Physician Pastoral Ministries Professor Family Medicine 06/24/24 documented as of this encounter
--- OUTSIDE RECORDS SUMMARY | 2025-03-29 15:41 | XMS_ITS | Encounter Summary ---
Author Organization [facility] Address [address] [place] [address] Care Team Providers Care Day Care Home Provider Name Role Phone Deshawn Caal MD Primary Care Provider + [phone] Noemi Yoo MD Primary Care Provider [phone] Jennifer Tucker Unavailable [phone] Encounter Details Date Type Department Care Team (Late st Contact Info) Description 2023 Clinisync Result Encounter NOMS External Department Unsolicited Nenita Blum, DO [address] [facility] [place] [address] Social History Tobacco Use Types [...] Travel Start Travel End [place] 03/22/2025 03/27/2025 COVID-19 Exposure Response Date Recorded [...] EDT Office Visit [facility] CI FM 112 [facility] 110 [place] [address] Jennifer Tucker PA 112 [facility] 110 [place] [address] 04/04/2026 10:00 AM EDT Office Visit [facility] BCP OB [address] [facility] [place] [address] Luba Corral PA [address] [facility] [place] [address] documented as of this encounter Procedures Procedure Name Priority Date/Time Associated Diagnosis Comments US OB TRANSVAGINAL 2023 3: 32 PM EST documented in this encounter Results * US OB TRANSVAGINAL (2023 3:32 PM EST) Anatomical Region Laterality Modality Other 2023 3:32 PM EST Narrative 2023 3:32 PM EST [address] [address] Ultrasound Report Signed Patient: JOSELIN BLACKBURN MR#: [id number] : 2005 Acct:[id number] Age/Sex: 18 / F ADM Date: 08/11/23 Loc: US Attending Dr: Nenita Blum D.O. Ordering Physician: Nenita Blum D.O. Date of Service: 08/11/23 Procedure(s): US OB transvaginal Accession Number(s): [id number] cc: Nenita Blum D.O.; Physician,Non-Staff M.Kurt The [address] [address] Patient Name: JOSELIN BLACKBURN MRN: [id number] date: 2005 Sex: F Assigned Patient Location: US Current Patient Location: US Accession/Order Number: [id number] Exam Date: 2023 11:10 Report Date: 2023 15:32 At the request of: NENITA VIKTORIA Procedure: US OB transvaginal EXAMINATION: US OB [...] Signed By: 08/11/23 1534 DD/ 31 TD/TT: Claims Sorter: Procedure Note Radiology, Radiologist, - [address] [place] [address] Ultrasound Report Signed Patient: JOSELIN BLACKBURN#: [id number] : 2005Acct:[id number] Age/Sex: 18 / FADM Date: 08/11/23 Loc: US Attending Dr: Nenita Blum D.O. Ordering Physician: Nenita Blum D.O. Date of Service: 08/11/23 Procedure(s): US OB transvaginal Accession Number(s): [id number] cc: Nenita Blum D.O.; Physician,Non-Staff MNancyDNancy [place] [id number] Patient Name: JOSELIN BLACKBURN MRN: [id number] date: 2005 Sex: F Assigned Patient Location: US Current Patient Location: US Accession/Order Number: [id number] Exam Date: 2023 11:10 Report Date: 2023 [...] 15:32 Dictated By: Francisco North M.D. Signed By:08/11/234 DD/ 31 TD/TT: Claims Sorter: us Nenita Viktoria DO [facility] Final Result documented in this encounter Visit Diagnoses Not on filedocumented in this encounter Care Teams Day Care Home Provider Relationship Specialty Start Date End Date Deshawn Caal MD PCP - General Family Medicine 04/14/23 06/23/24 Noemi Yoo MD [address] [address] PCP - General Family Medicine 06/24/24 Jennifer Tucker PA 112 [facility] 110 [place] [address] Physician Cutting Machine Fixer Family Medicine 06/24/24 documented as of this encounter
--- OUTSIDE RECORDS SUMMARY | 2025-03-29 15:41 | XMS_ITS | Encounter Summary ---
Author Organization [facility] Address [address] [facility] [place] [address] Care Team Providers Care Publishing Agent Name Role Phone Noemi Yoo MD Primary Care Provider [phone] Jennifer Tucker Unavailable Encounter Details Date Type Department Care Team (Late st Contact Info) Description 03/29/2025 Bamboo flowsheet [facility] OB [address] [facility] [place] [address] Luba Corral PA [address] [place] [address] Social History Tobacco Use Types Packs/Day [...] often do you attend chur ch or protestant services? More than 4 times per year 01/28/2024 Do you belong to any clubs o r organizations such as congregation groups, unions, fraternal or athletic groups, or [...] Recorded Patient Health Questionnaire-2 Score 0 01/18/2025 [facility] - [...] place to sleep or slept in a fpc (including now)? No 01/28/2024 Comments No Sex and Gender Information Value Date Recorded Sex Assigned at Not on file Legal Sex Female 6:51 PM EDT Gender Identity Not on file Sexual Orientation Not on file Travel History Travel Start Travel End [place] 03/22/2025 03/27/2025 documented as of this encounter Plan of Treatment Upcoming Encounters Date Type Department Care Team (Late st Contact Info) Description 06/24/2025 10:30 AM EDT Office Visit [facility] [address] [facility] [address] [place] [address] Jennifer Tucker PA [address] [facility] [address] [place] [address] 04/04/2026 10:00 AM EDT Office Visit [facility] OB [address] [facility] [place] [address] Luba Corral PA [address] [place] [address] documented as of this encounter Visit Diagnoses Not on filedocumented in this encounter Care Teams Publishing Agent Relationship Specialty Start Date End Date Noemi Yoo MD [address] [facility] [address] [place] [address] PCP - General Family Medicine 06/24/24 Jennifer Tucker PA [address] [facility] [address] [place] [address] Physician Cabana Attendant Family Medicine 06/24/24 documented as of this encounter
--- OUTSIDE RECORDS SUMMARY | 2025-03-29 15:41 | XMS_ITS | Clinical Summary ---
Author Organization [facility] Address [address] [facility] [place] [address] Care Team Providers Care Stretcher Drier Operator Name Role Phone Noemi Yoo MD Primary Care Provider [phone] Jennifer Tucker Unavailable [phone] Allergies No known active allergies Medications ferrous sulfate (Fe Tabs) 325 (65 Fe) MG EC tabletIndications: Low ferritin Take 1 tablet (325 mg) by mouth in the morning. Take with meals. Do not crush, chew, or split. 30 tablet 2 5 Active cholecalciferol (Vitamin D-3) 50 MCG (1999 UT) capsuleIndications :Vitamin D deficiency Take 1 capsule (50 mcg) by mouth Daily 90 capsule 3 5 Active metFORMIN XR (Glucophage-XR) 500 MG 24 hr tabletIndications: Well woman exam with routine gynecological exam Take 1 tablet (500 mg) by mouth in the evening. Take with meals Do not crush, chew, or split. 30 tablet 11 5 04/28/20 25 Active Hospital, Clinic, or Other Facility Administered [...] Resolved Date Antepartum bleeding, third t rimester ([facility]) 06/24/2024 06/24/2024 Abdominal cramping complicat ing , antepartum ([facility]) 06/24/2024 06/24/2024 UTI (urinary tract infection) 06/24/2024 06/24/2024 Excessive and frequent menstruation 06/24/2024 06/24/2024 Other acute sinusitis 10/27/20172023 Adenoid hypertrophy 06/23/2017 06/24/20 24 Encounters Date Type Department Care Team Description 03/29/2025 1:00 PM EDT Office Visit [facility] OB [address] [facility] [place] [address] Luba Corral PA Well woman exam with routine gynecological exam 03/29/2025 Bamboo flowsheet [facility] OB [address] [facility] [place] [address] Luba Corral PA 03/29/2025 Travel 03/21/2025 Abstract [facility] [address] [facility] [address] [place] [address] Noemi Yoo MD 03/19/2025 Clinisync Result Encounter [facility] External Department Unsolicited Jennifer Tucker PA 01/20/2025 Results Follow-Up [facility] [address] [facility] [address] [place] [address] Jennifer Tucker PA Low ferritin (Primary Dx); Vitamin D deficiency 01/18/2025 4:30 PM EDT Office Visit [facility] [address] [facility] [address] [place] [address] Jennifer Tucker PA Weight gain (Primary Dx); Class 1 obesity without serious comorbidity with body mass index (BMI) of 31.0 to 31.9 in adult, unspecified obesity type; PCOS (polycystic ovarian syndrome); Family history of thyroid disease; Iron deficiency anemia due to chronic blood loss; Other fatigue 01/18/2025 [employer] flowsheet [facility] [address] [facility] [address] [place] [address] Jennifer Tucker PA 01/18/2025 Travel from Last [...] How often do you attend chur or holiness services? More than 4 times per year [...] Recorded Patient Health Questionnaire-2 Score 0 01/18/2025 [facility] - Occupational Stress Questionnaire Answer Date Recorded [...] Travel Start Travel End [place] 03/22/2025 03/27/2025 Last Filed Vital Signs Vital Sign Reading Time Taken Comments Blood Pressure 120/70 03/29/2025 1:13 PM EDT Pulse 79 01/18/2025 4:27 PM EDT Temperature 35.9 C (96.7 F) 02/03/2024 9:02 AM EDT Respiratory Rate 16 01/18/2025 4:27 PM EDT Oxygen Saturation 99% 01/18/2025 4:27 PM EDT Inhaled Oxygen Concentration - - Weight 78.5 kg (173 lb) 03/29/2025 1:13 PM EDT Height 157.5 cm (5' 2 ) 01/18/2025 4:27 PM EDT Body Mass Index 31.64 01/18/2025 4:27 PM EDT Plan of Treatment Upcoming Encounters Date Type Department Care Team (Late st Contact Info) Description 06/24/2025 10:30 AM EDT Office Visit [facility] [address] [facility] [address] [place] [address] Jennifer Tucker PA [address] [facility] [address] [place] [address] 04/04/2026 10:00 AM EDT Office Visit [facility] OB [address] [facility] [place] [address] Luba Corral PA [address] [facility] [place] [address] Health Maintenance Due Date Last Done Comments Influenza Vaccine (#1) 2025 09/22/2023, 2005 Procedures Procedure Name Priority Date/Time Associated Diagnosis Comments [facility] FERRITIN Routine 03/19/2025 11:13 AM EDT CBC Routine 01/19/2025 9:10 AM EDT Iron [...] fatigue from Last 3 Months Results * [facility] FERRITIN (03/19/2025 11:13 AM EDT) FERRITIN 35.0 8.0 - 252.0 ng/mL TB 03/19/2025 11:1 3 AM EDT 03/19/2025 11:14 AM EDT Narrative [facility] - 03/19/2025 2:23 PM EDT Jennifer LAU [facility] Final Result Performing Organization Address [facility] Co de Phone Number [facility] TB * (ABNORMAL) Iron + transferrin + TIBC [...] Performing Organization Information Site ID: QPT Name: [facility] Address: [address] [place] [address], [address] [place] [phone] Director: Tavo Barnes MD Jennifer LAU LAB BLOOD ORDERABLES Final Res ult [facility] * TSH W/REFLEX TO FT4 (01/19/2025 [...] Performing Organization Information Site ID: QPT Name: [facility] Address: [address] [place] [address], [address] [place] [address] Director: Tavo Barnes MD us Jennifer LAU LAB BLOOD ORDERABLES Final Res ult [facility] * (ABNORMAL) Vitamin D 25 hydroxy [...] D, (D2,D3), LC/MS/MS is recommended: order code [id number] (patients >2yrs). See Note 1 Note 1 For additional information, please refer to http://[email or web address]/faq/HAB471 (This link is being provided for informational/ educational purposes only.) Blood Venous blood specimen / Unknown 01/19/2025 9:10 AM EDT 01/19/2025 3:11 PM EDT Narrative [facility] - 01/20/2025 9:17 AM EDT FASTING:NO FASTING: NO Resulting Agency Comment Performing Organization Information Site ID: QPT Name: [facility] Address: [address] [place] [address], [address] [place] [phone] Director: Tavo Barnes MD us Jennifer LAU LAB BLOOD ORDERABLES Final Res ult [facility] * CBC (01/19/2025 9:10 AM EDT) [...] Performing Organization Information Site ID: QTW Name: [facility] Address: [address] [place] [phone] Director: Lu Champagne us Jennifer LAU LAB BLOOD ORDERABLES Final Res ult [facility] from Last 3 Months Insurance BS BCBS Care Teams Stretcher Drier Operator Relationship Specialty Start Date End Date Noemi Yoo MD [address] [address] PCP - General Family Medicine 06/24/24 Jennifer Tucker PA [address] [address] Physician Banking Manager Family Medicine 06/24/24
--- OUTSIDE RECORDS SUMMARY | 2025-03-29 15:41 | XMS_ITS | Encounter Summary ---
Author Organization [facility] Address [address] [place] [address] Care Team Providers Care Deputy Chief Executive Name Role Phone Noemi Yoo MD Primary Care Provider [phone] Jennifer Tucker PA Unavailable [phone] Encounter Details Date Type Department Care Team (Late st Contact Info) Description 03/21/2025 Abstract [facility] [address] [facility] [address] [place] [address] Noemi Yoo MD 112 [facility] 110 [place] [address] Social History Tobacco Use Types Packs/Day Years [...] often do you attend chur ch or restorationist services? More than 4 times per year 01/28/2024 Do you belong to any clubs o r organizations such as mormonism groups, unions, fraternal or athletic groups, or [...] Recorded Patient Health Questionnaire-2 Score 0 01/18/2025 [facility] ional [facility] - Occupational Stress [...] place to sleep or slept in a fdc (including now)? No 01/28/2024 Comments No Sex and Gender Information Value Date Recorded Sex Assigned at Not on file Legal Sex Female 6:51 PM EDT Gender Identity Not on file Sexual Orientation Not on file Travel History Travel Start Travel End [place] 03/22/2025 03/27/2025 documented as of this encounter Plan of Treatment Upcoming Encounters Date Type Department Care Team (Late st Contact Info) Description 06/24/2025 10:30 AM EDT Office Visit [facility] [address] [facility] [address] [place] [address] Jennifer Tucker PA [address] [facility] [address] [place] [address] 04/04/2026 10:00 AM EDT Office Visit [facility] OB [address] [facility] [place] [address] Luba Corral PA [address] [facility] [place] [address] documented as of this encounter Visit Diagnoses Not on filedocumented in this encounter Care Teams Deputy Chief Executive Relationship Specialty Start Date End Date Noemi Yoo MD [address] [facility] [address] [place] [address] PCP - General Family Medicine 06/24/24 Jennifer Tucker PA [address] [facility] [address] [place] [address] Physician Word Processing Supervisor Family Medicine 06/24/24 documented as of this encounter
--- OUTSIDE RECORDS SUMMARY | 2025-03-29 15:41 | XMS_ITS | Patient Health Record ---
Author Organization [facility] Address [address] [place] [address] Care Team Providers Care Mortar Worker Name Role Phone Katerin Chase [phone] Reason For Referral No Information Problems Problem Type SNOMED Code ICD Code Onset Dates Problem Status W/U Status Risk Notes Problem Primigravida (731939424) Encounter for supervision of normal first , unspecified trimester (Z34.00) Active confirm Plan Of Treatment No Information Insurance Providers Payer Name Payer Address Payer Phone Subscriber Number Group Number Insured Name Patient Relationship to Insured Coverage Start Date Coverage End Date ANTHEM Primary [address] [place] [address] [id number] BLACKBURNREBECA VENTURA Self - patient is the insured [address] [address] [place] [address] [id number] REBECA BLACKBURN Self - patient is the insured 5 Medical (General) History Medical History History ICD Code seasonal Surgical History Surgery Date(Month/Year) adenoidectomy 2018
--- OUTSIDE RECORDS SUMMARY | 2025-03-29 15:41 | XMS_ITS | Encounter Summary ---
Author Organization [facility] Address [id number] [address] [place] [address] Care Team Providers Care Robotics Technician Name Role Phone Deshawn Caal DO Primary Care Provider [phone] Encounter Details Date Type Department Care Team (Late st Contact Info) Description 09/15/2018 Documentation [facility] [address] [place] [address] Coleen Lockwood LPN Social History [...] documented as of this encounter Care Teams Robotics Technician Relationship Specialty Start Date End Date Deshawn Caal DO PCP - General Family Medicine 06/23/17 documented as of this encounter
--- OUTSIDE RECORDS SUMMARY | 2025-03-29 15:41 | XMS_ITS | Encounter Summary ---
Author Organization [facility] Address [address] [place] [address] Care Team Providers Care Student Finance Advisor Name Role Phone Noemi Yoo MD Primary Care Provider [phone] Jennifer Tucker Unavailable [phone] Encounter Details Date Type Department Care Team (Latest Contact Info) Description 03/29/2025 Travel Social History Tobacco Use Types Packs/Day Years [...] How often do you attend chur or yazidism services? More than 4 times per year 01/28/2024 Do you belong to any clubs o r organizations such as quaker groups, unions, fraternal or athletic groups, or [...] Recorded Patient Health Questionnaire-2 Score 0 01/18/2025 [facility] ional [facility] - [...] place to sleep or slept in a detention (including now)? No 01/28/2024 Comments No Sex and Gender Information Value Date Recorded Sex Assigned at Not on file Legal Sex Female 6:51 PM EDT Gender Identity Not on file Sexual Orientation Not on file Travel History Travel Start Travel End [place] 03/22/2025 03/27/2025 documented as of this encounter Plan of Treatment Upcoming Encounters Date Type Department Care Team (Late st Contact Info) Description 06/24/2025 10:30 AM EDT Office Visit [facility] [address] [facility] [address] [place] [address] Jennifer Tucker PA [address] [facility] [address] [place] [address] 04/04/2026 10:00 AM EDT Office Visit [facility] B[facility] OB [address] [facility] [place] [phone] Luba Corral PA [address] [facility] [address] [place], [place] [phone] documented as of this encounter Visit Diagnoses Not on filedocumented in this encounter Care Teams Student Finance Advisor Relationship Specialty Start Date End Date Noemi Yoo MD [address] [facility] [address] [place] [address] PCP - General Family Medicine 06/24/24 Jennifer Tucker PA [address] [facility] [address] [place] [address] Physician Director Of Labor And Delivery Family Medicine 06/24/24 documented as of this encounter
[2025-03-29 16:10] LABS: Alanine Aminotransferase 27 U/L (14-59); Albumin Globulin Ratio 1.1; Albumin Level 4.0 g/dL (3.4-5.0); Alkaline Phosphatase 76 U/L (46-116); Anion Gap 12.6; Aspartate Amino Transferase 19 U/L (15-37); Blood Urea Nitrogen 13.0 mg/dL (7.0-18.0); Calcium 9.3 mg/dL (8.5-10.1); Carbon Dioxide 28.3 mmol/L (21.0-32.0); Chloride 103 mmol/L (98-107); Estimated GFR (African America >60 (>=60 mL/min/1.73m^2); Estimated GFR (Non-African Ame >60 (>=60 mL/min/1.73m^2); Globulin 3.5 g/dL; Glucose 112 mg/dL (74-106); Potassium 3.9 mmol/L (3.5-5.1); Sodium 140 mmol/L (136-145); Total Protein 7.5 g/dL (6.4-8.2)
== END 2025-03-29 15:38 | disposition home or self-care (01) ==
LOC: LAB 15:38
PROVIDERS: PCP Physician Assistant; Visit Provider Physician Assistant
DX: Z01.419 Encounter for gynecological examination (general) (routine) without abnormal findings (principal)
CPT/HCPCS: 36415; 80053; 83036; 88175

== ENCOUNTER 2025-03-29 19:19 | Outpatient (REF) | payer BC, OTHER, SELFPAY ==
--- OUTSIDE RECORDS SUMMARY | 2025-03-29 13:00 | XMS_ITS | Encounter Summary ---
Author Organization [facility] Address [address] [facility] [place] [address] Care Team Providers Care Paper Rewinder Operator Name Role Phone Noemi Yoo MD Primary Care Provider [phone] Jennifer Tucker Unavailable [phone] Reason for Visit * Reason Comments Well Women Visit Encounter Details Date Type Department Care Team (Late st Contact Info) Description 03/29/2025 1:00 PM EDT Office Visit [facility] [address] [facility] [place] [address] Luba Corral PA [address] [facility] [address] [place], [place] [id number] Well woman exam with routine gynecological exam Social History Tobacco Use Types Packs/Day Years [...] How often do you attend chur or christianity services? More than 4 times per year 01/28/2024 Do you belong to any clubs o r organizations such as baptism groups, unions, fraternal or athletic groups, or [...] Recorded Patient Health Questionnaire-2 Score 0 01/18/2025 [facility] - Occupational Stress [...] place to sleep or slept in a mcc (including now)? No 01/28/2024 Comments No Sex and Gender Information Value Date Recorded Sex Assigned at Not on file Legal Sex Female 6:51 PM EDT Gender Identity Not on file Sexual Orientation Not on file Travel History Travel Start Travel End [place] 03/22/2025 03/27/2025 documented as of this encounter Last Filed Vital Signs Vital Sign Reading Time Taken Comments Blood Pressure 120/70 03/29/2025 1:13 PM EDT Pulse - - Temperature - - Respiratory Rate - - Oxygen Saturation - - Inhaled Oxygen Concentration - - Weight 78.5 kg (173 lb) 03/29/2025 1:13 PM EDT Height - - Body Mass Index 31.64 01/18/2025 4:27 PM EDT documented in this encounter Progress Notes * SID Hernandez - 03/29/2025 1:00 PM EDT Reason for Appointment: Patient ID: Joselin Valenzuela is a 19 y.o. female who presents for Well Women Visit Patient presents today for Annual Exam. MEDICATIONS Current Outpatient Medications Medication Instructions cholecalciferol (VITAMIN D-3) 50 mcg, Oral, Daily ferrous sulfate (FE TABS) 325 mg, Oral, Daily with breakfast, Do not crush, chew, or split. ALLERGIES No Known Allergies PROBLEMS Active Ambulatory Problems Diagnosis Date Noted Allergic rhinitis 06/23/2017 PCOS (polycystic ovarian syndrome) 06/24/2024 S/P adenoidectomy 08/04/2017 Deviated septum 09/15/2018 Major depressive disorder, single episode, moderate (HCC) 06/24/2024 Menorrhagia with irregular cycle 06/24/2024 Iron deficiency anemia due to chronic blood loss 06/24/2024 Class 1 obesity without serious comorbidity with body mass index (BMI) of 31.0 to 31.9 in adult 01/18/2025 Resolved Ambulatory Problems Diagnosis Date Noted Antepartum bleeding, third trimester ([facility]) 06/24/2024 Abdominal cramping complicating , antepartum ([facility]) 06/24/2024 Other acute sinusitis 10/27/2017 UTI (urinary tract infection) 06/24/2024 Adenoid hypertrophy 06/23/2017 Excessive and frequent menstruation 06/24/2024 Past Medical History: Diagnosis Date Anemia Irregular menses Ovarian cyst Polycystic ovary syndrome Type A blood, Rh positive Urinary tract infection HISTORY PAST MEDICAL HISTORY SOCIAL HISTORY Past Medical History: Diagnosis Date Abdominal cramping complicating , antepartum ([facility]) 06/24/2024 Anemia Antepartum bleeding, third trimester ([facility]) 06/24/2024 Irregular menses Ovarian cyst Polycystic ovary syndrome Type A blood, Rh positive Urinary tract infection UTI (urinary tract infection) 06/24/2024 Social History Tobacco Use Smoking status: Never [...] brother Autism Other Maternal and paternal brothers SURGICAL HISTORY Past Surgical History: Procedure Laterality [...] appearance. She is well-developed. Genitourinary: Vulva normal. Right Adnexa: not tender and no mass present. Left Adnexa: not tender and no mass present. No cervical discharge. IUD strings visualized. Breasts: Breasts are soft. Right: Normal. Left: Normal. HENT: Head: Normocephalic. Nose: Nose normal. Mouth/Throat: Mouth: Mucous membranes are moist. Cardiovascular: Rate and Rhythm: Normal rate and regular rhythm. Pulmonary: Effort: Pulmonary effort is normal. Breath sounds: Normal breath sounds. Abdominal: General: Bowel sounds are normal. There is no distension. Palpations: Abdomen is soft. Tenderness: There is no abdominal tenderness. There is no guarding or rebound. Musculoskeletal: General: No swelling. Normal range of motion. Cervical back: Normal range of motion. Right lower leg: No edema. Left lower leg: No edema. Neurological: General: No focal deficit present. Mental Status: She is alert and oriented to person, place, and time. Skin: General: Skin is warm and dry. Psychiatric: Mood and Affect: Mood normal. Behavior: Behavior normal. Vitals and nursing note reviewed. Exam conducted with a hair or beauty salon manager present. Vitals: Estimated body mass index is 31.64 kg/m?? as calculated from the following: Height as of 01/18/25: 5' 2 . Weight as of this encounter: 173 lb. BP: 120/70 Patient's last menstrual period was 03/18/2025 (exact date). ASSESSMENT & PLAN ICD-10-CM 1. Well woman exam with routine gynecological exam Z01.419 Pap Smear Annual Exam: Patient presents today for an annual exam. Patient states she is doing well and has no complaints. Pap was obtained without difficulty. No orders of the defined types were placed in this encounter. Patient concerned of slow weight gain since having children. Tsh and fe levels with cbc recently checked by pcp. We will order cmp and A1. Patient will start taking metformin and schedule for possibly starting adipex in the future Follow Up: Patient is to return in one year for annual unless needed otherwise. Documented by Ambika Cuevas MA on behalf of: SID Hernandez documented in this encounter Plan of Treatment Upcoming Encounters Date Type Department Care Team (Late st Contact Info) Description 06/24/2025 10:30 AM EDT Office Visit [facility] [address] [place] [address] Jennifer Tucker PA [address] [address] 04/04/2026 10:00 AM EDT Office Visit [facility] [address] [facility] [place] [address] Luba Corral PA [address] [facility] [address] [place], [place] [id number] Scheduled Orders Name Type Priority Associated Diagnoses Orde r Schedule Pap Smear Pathology and Cytology Routine Well woman exam with routine gynecological exam Ordered: 03/29/2025 Comprehensive metabolic panel Lab Routine Well woman exam with routine gynecological exam Ordered: 03/29/2025 Hemoglobin A1c Lab Routine Well woman exam with routine gynecological exam Ordered: 03/29/2025 documented as of this encounter Visit Diagnoses Diagnosis Well woman exam with routine gynecological exam Routine gynecological examination documented in this encounter Care Teams Paper Rewinder Operator Relationship Specialty Start Date End Date Noemi Yoo MD [address] [place] [address] [address] PCP - General Family Medicine 06/24/24 Jennifer Tucker PA [address] [place] [address] [address] Physician Briar Cutter Family Medicine 06/24/24 documented as of this encounter
--- OUTSIDE RECORDS SUMMARY | 2025-03-29 19:22 | XMS_ITS | Encounter Summary ---
Author Organization [facility] Address [address] [facility] [place] [address] Care Team Providers Care Superintendent Of Schools Name Role Phone Noemi Yoo MD Primary Care Provider [phone] Jennifer Tucker Unavailable [phone] Encounter Details Date Type Department Care Team (Late st Contact Info) Description 03/19/2025 Clinisync Result Encounter [facility] External Department Unsolicited Jennifer Tucker PA [address] [place] [address] [place] [address] Social History Tobacco Use Types Packs/Day Years [...] often do you attend chur ch or anabaptist services? More than 4 times per year 01/28/2024 Do you belong to any clubs o r organizations such as restorationist groups, unions, fraternal or athletic groups, or [...] Recorded Patient Health Questionnaire-2 Score 0 01/18/2025 [facility]at ional [facility] - [...] place to sleep or slept in a [place] health care facility (including now)? No 01/28/2024 Comments No Sex and Gender Information Value Date Recorded Sex Assigned at Not on file Legal Sex Female 6:51 PM EDT Gender Identity Not on file Sexual Orientation Not on file Travel History Travel Start Travel End [place] 03/22/2025 03/27/2025 documented as of this encounter Plan of Treatment Upcoming Encounters Date Type Department Care Team (Late st Contact Info) Description 06/24/2025 10:30 AM EDT Office Visit [facility] [address] [facility] [address] [place] [address] Jennifer Tucker PA [address] [facility] [address] [place] [address] 04/04/2026 10:00 AM EDT Office Visit [facility] B[facility] OB 102 [facility] [place] [address] Luba Corral PA [address] [facility] [place] [address] documented as of this encounter Procedures Procedure Name Priority Date/Time Associated Diagnosis Comments [facility] FERRITIN Routine 03/19/2025 11:13 AM EDT documented in this encounter Results * [facility] FERRITIN (03/19/2025 11:13 AM EDT) FERRITIN 35.0 8.0 - 252.0 ng/mL TBH 03/19/2025 11:1 3 AM EDT 03/19/2025 11:14 AM EDT Narrative [facility] - 03/19/2025 2:23 PM EDT us Jennifer LAU [facility] Final Result [facility] documented in this encounter Visit Diagnoses Not on filedocumented in this encounter Care Teams Superintendent Of Schools Relationship Specialty Start Date End Date Noemi Yoo MD [address] [facility] [address] [place] [address] PCP - General Family Medicine 06/24/24 Jennifer Tucker PA [address] [facility] [address] [place] [address] Physician Audiovisual Tech Family Medicine 06/24/24 documented as of this encounter
--- OUTSIDE RECORDS SUMMARY | 2025-03-29 19:22 | XMS_ITS | Encounter Summary ---
Author Organization [facility] Address [address] [facility] [place] [address] Care Team Providers Care Satellite Television Installer Name Role Phone Deshawn Caal MD Primary Care Provider [phone] Noemi Yoo MD Primary Care Provider [phone] Jennifer Tucker Unavailable [phone] Encounter Details Date Type Department Care Team (Late Contact Info) Description 01/22/2024 Clinisync Result Encounter [facility] External Department Unsolicited Nenita Blum, DO [address] [facility] [place] [address] Social History Tobacco Use Types [...] file Travel History Travel Start Travel End [place] 03/22/2025 03/27/2025 documented as of this encounter Plan of Treatment Upcoming Encounters Date Type Department Care Team (Late Contact Info) Description 06/24/2025 10:30 AM EDT Office Visit [facility] FM 112 [facility] [address] [place] [address] Jennifer Tucker PA 112 [facility] [address] [place] [address] 04/04/2026 10:00 AM EDT Office Visit [facility] B[facility] OB [address] [facility] [place] [address] Luba Corral PA [address] [facility] [place] [address] documented as of this encounter Procedures Procedure Name Priority Date/Time Associated Diagnosis Comments US PELVIS W/ TRANSVAGINAL 01/22/2024 9:26 AM EDT documented in this encounter Results * US PELVIS W/ TRANSVAGINAL (01/22/2024 9:26 AM EDT) Anatomical Region Laterality Modality Other 01/22/2024 9:26 AM EDT Narrative 01/22/2024 9:28 AM EDT [address] [address] Ultrasound Report Signed Patient: JOSELIN BLACKBURN MR#: [id number] : 2005 Acct:[id number] Age/Sex: 18 / F ADM Date: 01/22/24 Loc: [facility] Attending Dr: Nenita Blum D.O. Ordering Physician: Nenita Blum D.O. Date of Service: 01/22/24 Procedure(s): US pelvis w/ transvaginal Accession Number(s): [id number] cc: Nenita Blum D.O.; Physician,Non-Staff M.Kurt The [address] [id number] Patient Name: JOSELIN BLACKBURN MRN: [id number] date: 2005 Sex: F Assigned Patient Location: [facility] Current Patient Location: [facility] Accession/Order Number: [id number] Exam Date: 01/22/2024 08:24 Report Date: 01/22/2024 [...] M.D. Signed By: 01/22/2428 DD/ 5 TD/TT: Tanning Wheel Filler: Procedure Note Radiology, Radiologist, MD - 01/22/2024 [place] [address] Ultrasound Report Signed Patient: JOSELIN BLACKBURNMR#: [id number] : 2005Acct:[id number] Age/Sex: 18 / FADM Date: 01/22/24 Loc: [facility] Attending Dr: Nenita Blum D.O. Ordering Physician: Nenita Blum D.O. Date of Service: 01/22/24 Procedure(s): US pelvis w/ transvaginal Accession Number(s): [id number] cc: Nenita Blum D.O.; Physician,Non-Staff Marissa The [place] [id number] Patient Name: JOSELIN BLACKBURN MRN: [id number] date: 2005 Sex: F Assigned Patient Location: [facility] Current Patient Location: [facility] Accession/Order Number: [id number] Exam Date: 01/22/2024 08:24 Report Date: 01/22/2024 [...] Espino M.D. Signed By:01/22/24927 DD/ 5 TD/TT: Tanning Wheel Filler: us Nenita Viktoria DO [facility] Final Result documented in this encounter Visit Diagnoses Not on filedocumented in this encounter Care Teams Satellite Television Installer Relationship Specialty Start Date End Date Deshawn Caal MD PCP - General Family Medicine 04/14/23 06/23/24 Noemi Yoo MD [address] [facility] [address] [place] [address] PCP - General Family Medicine 06/24/24 Jennifer Tucker PA [address] [facility] [address] [place] [address] Physician Laboratory Development Technician Family Medicine 06/24/24 documented as of this encounter
--- OUTSIDE RECORDS SUMMARY | 2025-03-29 19:22 | XMS_ITS | Encounter Summary ---
Author Organization [facility] Address [address] [place] [address] Care Team Providers Care Supervisory Civil Engineer Name Role Phone Noemi Yoo MD Primary Care Provider [phone] Jennifer Tucker Unavailable [phone] Encounter Details Date Type Department Care Team (Late st Contact Info) Description 03/29/2025 Clinisync Result Encounter NOMS External Department Unsolicited Luba Corral PA [address] [facility] [address] [place], [place] [id number] Social History Tobacco Use Types Packs/Day Years [...] often do you attend chur ch or oriental orthodox services? More than 4 times per year 01/28/2024 Do you belong to any clubs o r organizations such as catholic groups, unions, fraternal or athletic groups, or [...] Recorded Patient Health Questionnaire-2 Score 0 01/18/2025 [facility] ional [facility] - [...] place to sleep or slept in a residential (including now)? No 01/28/2024 Comments No Sex and Gender Information Value Date Recorded Sex Assigned at Not on file Legal Sex Female 6:51 PM EDT Gender Identity Not on file Sexual Orientation Not on file Travel History Travel Start Travel End [place] 03/22/2025 03/27/2025 documented as of this encounter Plan of Treatment Upcoming Encounters Date Type Department Care Team (Late st Contact Info) Description 06/24/2025 10:30 AM EDT Office Visit [facility] FM [address] [facility] [address] [place] [address] Jennifer Tucker PA [address] [facility] [address] [place] [address] 04/04/2026 10:00 AM EDT Office Visit [facility] BCP OB [address] [facility] [place] [address] Luba Corral PA [address] [facility] [place] [address] documented as of this encounter Procedures Procedure Name Priority Date/Time Associated Diagnosis Comments MLR HEMOGLOBIN A1C Routine 03/29/2025 3: 47 PM EDT [facility] CMP (CMP) (FOR REMOTE [facility] USE) Routine 03/29/2025 3:47 PM EDT documented in this encounter Results * MLR HEMOGLOBIN A1C (03/29/2025 3:47 PM EDT) GLYCOHEMOGLOBIN A1C 5.1 4.5 - 6.2 % [facility] Comment: ADA RECOMMENDED LIMIT 4.0 - 6.0 ADA THERAPEUTIC TARGET < 7.0 ACTION SUGGESTED > 7.0 ESTIMATED AVERAGE GLUCOSE 100 mg/dL TB 03/29/2025 3:47 PM EDT 03/29/2025 3:49 PM EDT Narrative CLINISYNC - 03/29/2025 5:34 PM EDT us Generic External Data Provider CLINISYNC F inal Result CLINISYNC TBH * (ABNORMAL) [facility] CMP (CMP) (FOR REMOTE [facility] USE) (03/29/2025 3:47 PM EDT) SODIUM 140 136 - 145 mmol/L TBH POTASSIUM 3.9 3.5 - 5.1 mmol/L TBH CHLORIDE 103 98 - 107 mmol/L TBH CARBON DIOXIDE 28.3 21.0 - 32.0 mmol/L TBH ANION GAP 12.6 TBH GLUCOSE 112(H) 74 - 106 mg/dL TBH BLOOD UREA NITROGEN 13.0 7.0 - 18.0 mg/dL TBH CREATININE 0.63 0.55 - 1.02 mg/dL TBH TBH EGFR-AF PRYDEINIG >60 >=60 mL/min/1. 73m 2 TBH TBH EGFR-NON AF PRYDEINIG >60 >=60 mL/min/1. 73m 2 TBH BUN CREATININE RATIO 20.6 TBH CALCIUM 9.3 8.5 - 10.1 mg/dL TBH BILIRUBIN TOTAL 0.5 0.2 - 1.0 mg/dL TBH ASPARTATE AMINO TRANSFERASE 19 15 - 37 U/L TBH ALANINE AMINOTRANSFERASE 27 14 - 59 U/L TBH ALKALINE PHOSPHATASE 76 46 - 116 U/L TBH TOTAL PROTEIN 7.5 6.4 - 8.2 g/dL TBH ALBUMIN LEVEL 4.0 3.4 - 5.0 g/dL TBH GLOBULIN 3.5 g/dL TBH ALBUMIN GLOBULIN RATIO 1.1 TBH 03/29/2025 3:47 PM EDT 03/29/2025 3:49 PM EDT Narrative CLINISYNC - 03/29/2025 4:17 PM EDT Generic External Data Provider CLINISYNC F inal Result CLINISYNC TBH documented in this encounter Visit Diagnoses Not on filedocumented in this encounter Care Teams Supervisory Civil Engineer Relationship Specialty Start Date End Date Noemi Yoo MD [address] [facility] 110 [place] [address] PCP - General Family Medicine 06/24/24 Jennifer Tucker PA [address] [facility] [address] [place] [address] Physician Print Shop Manager Family Medicine 06/24/24 documented as of this encounter
--- OUTSIDE RECORDS SUMMARY | 2025-03-29 19:22 | XMS_ITS | Encounter Summary ---
Author Organization [facility] Address [address] [place] [address] Care Team Providers Care Heel Dipper Name Role Phone Deshawn Caal MD Primary Care Provider [phone] Noemi Yoo MD Primary Care Provider [phone] Jennifer Tucker PA Unavailable [phone] Encounter Details Date Type Department Care Team (Late st Contact Info) Description 09/08/2023 Abstract [facility] OB [address] [place] [address] Davin Blum, DO [address] [facility] [address] Tanja Shirley, [facility]11 Social History Tobacco Use Types Packs/Day [...] Travel Start Travel End [place] 03/22/2025 03/27/2025 COVID-19 Exposure Response Date Recorded [...] [address] [facility] [address] [place] [address] Jennifer Tucker PA [address] [facility] [address] [place] [address] 04/04/2026 10:00 AM EDT Office Visit [facility] BCP OB [address] [facility] [place] [address] Luba Corral PA [address] [facility] [place] [address] documented as of this encounter Visit Diagnoses Not on filedocumented in this encounter Care Teams Heel Dipper Relationship Specialty Start Date End Date Deshawn Caal MD PCP - General Family Medicine 04/14/23 06/23/24 Noemi Yoo MD [address] [facility] [address] [place] [address] PCP - General Family Medicine 06/24/24 Jennifer Tucker PA [address] [facility] [address] [place] [address] Physician Railcar Brake Operator Family Medicine 06/24/24 documented as of this encounter
--- OUTSIDE RECORDS SUMMARY | 2025-03-29 19:22 | XMS_ITS | Encounter Summary ---
Author Organization [facility] Address [address] [place] [address] Care Team Providers Care Chief Radiation Therapist Name Role Phone Deshawn Caal MD Primary Care Provider + [phone] Noemi Yoo MD Primary Care Provider [phone] Jennifer Tucker PA Unavailable [phone] Encounter Details Date Type Department Care Team (Late st Contact Info) Description 08/28/2023 External Result Encounter [facility] BCP OB [address] [place] [address] Nenita Blum, DO [address] Tanja Shirley, [facility]11 Social History Tobacco Use Types [...] file Travel History Travel Start Travel End [place] 03/22/2025 03/27/2025 COVID-19 Exposure Response Date Recorded [...] EDT Office Visit [facility] CI FM [address] [facility] [address] [place] [address] Jennifer Tucker PA [address] [facility] [address] [place] [address] 04/04/2026 10:00 AM EDT Office Visit [facility] BCP OB [address] [facility] [place] [address] Luba Corral PA [address] [facility] [address] documented as of this encounter Procedures Procedure Name Priority Date/Time Associated Diagnosis Comments US OB 14+ WEEKS ANATOMY SCAN 08/28/2023 6:34 PM EST documented in this encounter Results * US OB 14+ weeks anatomy scan (08/28/2023 6:34 PM EST) Anatomical Region Laterality Modality Body Ultrasound 08/28/2023 6:34 PM EST Narrative 08/28/2023 6:33 PM EST THIS EXAM WAS PERFOR[facility] REPORT (Signed Final 08/28/2023 18:33) PATIENT INFO: ID #: [id number] : [birth year] (18 yrs)(F) Name: JOSELIN ROSADO Visit Date: 08/28/2023 16:46 VALENZUELA PERFORMED BY: Attending: Kenny Greer MD Performed By: Jennifer Guthrie RD Referred By: Nenita Carrillo. Address: [address] [place] [address] [place] [address] Location: [facility] SERVICE(S) PROVIDED: Comprehensive Anatomic Survey 52113 OB Transvaginal 80268 Doppler, middle cerebral artery 92180 Echocardiogram-complete 76690 INDICATIONS: Screening for anatomic survey Z36.89 Vaginal [...] Normal Interventr. Septum: Variant, see below Cardiac [place]: Appears normal Diaphragm: Appears normal 3 Vessel [...] evaluation of anemia. RECOMMENDATIONS: 1. Please see [facility] consultation documentation from today's encounter. Of note, VSD was not discussed with patient yet, will need to be discussed inpatient. 2. The patient was escorted to [facility] for admission. 3. Subsequent follow up or other follow up as clinically determined by primary OB provider unless otherwise specified by [facility]. 4. Results forwarded to ordering provider so they can follow up with the patient as necessary. The copy-to physician of this order is NENITA Rg The ordering physician of this order is KENNY Parsons Procedure Note Radiology, Radiologist, - 09/23/2023 THIS EXAM WAS PERFORMED AT [facility] REPORT (Signed Final 08/28/2023 18:33) PATIENT INFO: ID #: [id number] : [birth year] (18 yrs)(F) Name: JOSELIN ROSADO Visit Date: 08/28/2023 16:46 VALENZUELA PERFORMED BY: Attending: Kenny Greer MD Performed By: Jennifer Guthrie RDMS Referred By: Nenita Carrillo. Address: [address] [place] [address] Dr. Agrawal [facility] [place] [address] Location: [facility] SERVICE(S) PROVIDED: Comprehensive Anatomic Survey 75933 OB Transvaginal 45228 Doppler, middle cerebral artery 70849 Echocardiogram-complete 29222 INDICATIONS: Screening for anatomic survey Z36.89 Vaginal [...] Normal Interventr. Septum: Variant, see below Cardiac [place]: Appears normal Diaphragm: Appears normal 3 Vessel [...] inpatient. 2. The patient was escorted to [facility] for admission. 3. Subsequent follow up or other follow up as clinically determined by primary OB provider unless otherwise specified by [facility]. 4. Results forwarded to ordering provider so they can follow up with the patient as necessary. The copy-to physician of this order is NENITA Rg The ordering physician of this order is KENNY Parsons us Nenita Blum DO IMG OB US PROCEDURES Final Resul t documented in this encounter Visit Diagnoses Not on filedocumented in this encounter Care Teams Chief Radiation Therapist Relationship Specialty Start Date End Date Deshawn Caal MD PCP - General Family Medicine 04/14/23 06/23/24 Noemi Yoo MD [address] [facility] [address] [place], [place] [id number] PCP - General Family Medicine 06/24/24 Jennifer Tucker PA [address] [facility] 110 [place] [address] Physician Crime Scene Technician Family Medicine 06/24/24 documented as of this encounter
--- OUTSIDE RECORDS SUMMARY | 2025-03-29 19:23 | XMS_ITS | Encounter Summary ---
Author Organization [facility] Address [address] [place] [address] Care Team Providers Care In File Operator Name Role Phone Noemi Yoo MD Primary Care Provider [phone] Jennifer Tucker PA Unavailable [phone] Encounter Details Date Type Department Care Team (Late st Contact Info) Description 03/21/2025 Abstract [facility] CI FM [address] [facility] 110 [place] [address] Noemi Yoo MD 112 [facility] 110 [place] [address] Social History Tobacco Use Types Packs/Day Years [...] often do you attend chur ch or tenriism services? More than 4 times per year 01/28/2024 Do you belong to any clubs o r organizations such as latter day groups, unions, fraternal or athletic groups, or [...] Recorded Patient Health Questionnaire-2 Score 0 01/18/2025 [facility] Occupat ional Health - Occupational Stress [...] place to sleep or slept in a group home (including now)? No 01/28/2024 Comments No Sex and Gender Information Value Date Recorded Sex Assigned at Not on file Legal Sex Female 6:51 PM EDT Gender Identity Not on file Sexual Orientation Not on file Travel History Travel Start Travel End [place] 03/22/2025 03/27/2025 documented as of this encounter Plan of Treatment Upcoming Encounters Date Type Department Care Team (Late st Contact Info) Description 06/24/2025 10:30 AM EDT Office Visit [facility] [address] [place] [address] [place] [address] Jennifer Tucker PA [address] [place] [address] [place] [address] 04/04/2026 10:00 AM EDT Office Visit [facility] BCP OB [address] [facility] [place] [address] Luba Corral PA [address] [facility] [place] [address] documented as of this encounter Visit Diagnoses Not on filedocumented in this encounter Care Teams In File Operator Relationship Specialty Start Date End Date Noemi Yoo MD [address] [place] [address] [place] [address] PCP - General Family Medicine 06/24/24 Jennifer Tucker PA [address] [place] [address] [place] [address] Physician Medical Management Trainer Family Medicine 06/24/24 documented as of this encounter
--- OUTSIDE RECORDS SUMMARY | 2025-03-29 19:23 | XMS_ITS | Encounter Summary ---
Author Organization [facility] Address [address] [place] [address] Care Team Providers Care Supervisor Waterworks Name Role Phone Deshawn Caal MD Primary Care Provider [phone] Noemi Yoo MD Primary Care Provider [phone] Jennifer Tucker PA Unavailable [phone] Encounter Details Date Type Department Care Team (Late st Contact Info) Description 06/16/2024 Abstract [facility] [address] [facility] [address] [place] [phone] Deshawn Caal MD [address] [place] [address] Social History Tobacco Use Types Packs/Day Years [...] How often do you attend chur or mormonism services? More than 4 times per year 01/28/2024 Do you belong to any clubs o r organizations such as oriental orthodox groups, unions, fraternal or athletic groups, or [...] and heating? Not hard at all 01/28/2024 [facility] Occupat ional Health - Occupational [...] place to sleep or slept in a senior care (including now)? No 01/28/2024 Comments No Sex and Gender Information Value Date Recorded Sex Assigned at Not on file Legal Sex Female 6:51 PM EDT Gender Identity Not on file Sexual Orientation Not on file Travel History Travel Start Travel End [place] 03/22/2025 03/27/2025 documented as of this encounter Plan of Treatment Upcoming Encounters Date Type Department Care Team (Late st Contact Info) Description 06/24/2025 10:30 AM EDT Office Visit [facility] FM [address] [facility] 110 [place] [address] Jennifer Tucker PA [address] [facility] 110 [place] [address] 04/04/2026 10:00 AM EDT Office Visit [facility] BCP OB [address] [facility] [place] [address] Luba Corral PA [address] [facility] [place] [address] documented as of this encounter Visit Diagnoses Not on filedocumented in this encounter Care Teams Supervisor Waterworks Relationship Specialty Start Date End Date Deshawn Caal MD PCP - General Family Medicine 04/14/23 06/23/24 Noemi Yoo MD [address] [facility] [address] [place] [address] PCP - General Family Medicine 06/24/24 Jennifer Tucker PA [address] [facility] [address] [place] [address] Physician Cement Rubber Family Medicine 06/24/24 documented as of this encounter
--- OUTSIDE RECORDS SUMMARY | 2025-03-29 19:23 | XMS_ITS | Clinical Summary ---
Author Organization [facility] Healthcare Address [address] [facility] [place] [address] Care Team Providers Care Concrete Gun Operator Name Role Phone Noemi Yoo MD Primary Care Provider [phone] Jennifer Tucker Unavailable [phone] Allergies No known active allergies Medications [...] Resolved Date Antepartum bleeding, third t rimester ([facility]) 06/24/2024 06/24/2024 Abdominal cramping complicat ing , antepartum ([facility]) 06/24/2024 06/24/2024 UTI (urinary tract infection) 06/24/2024 06/24/2024 Excessive and frequent menstruation 06/24/2024 06/24/2024 Other acute sinusitis 10/27/20172023 Adenoid hypertrophy 06/23/2017 06/24/20 Encounters Date Type Department Care Team Description 03/29/2025 1:00 PM EDT Office Visit [facility] OB [address] [facility] [place] [address] Luba Corral PA Well woman exam with routine gynecological exam 03/29/2025 Clinisync Result Encounter NOMS External Department Unsolicited Luba Corral PA 03/29/2025 Bamboo flowsheet [facility] OB [address] [facility] [place] [address] Luba Corral PA 03/29/2025 Travel 03/21/2025 Abstract [facility] FM [address] [facility] [address] [place] [address] Noemi Yoo MD 03/19/2025 Clinisync Result Encounter NOMS External Department Unsolicited Jennifer Tucker PA 01/20/2025 Results Follow-Up [facility] CI FM [address] [place] [address] [place] [address] Jennifer Tucker PA Low ferritin (Primary Dx); Vitamin D deficiency 01/18/2025 4:30 PM EDT Office Visit [facility] FM [address] [place] [address] [place] [address] Jennifer Tucker PA Weight gain (Primary Dx); Class 1 obesity without serious comorbidity with body mass index (BMI) of 31.0 to 31.9 in adult, unspecified obesity type; PCOS (polycystic ovarian syndrome); Family history of thyroid disease; Iron deficiency anemia due to chronic blood loss; Other fatigue 01/18/2025 Talicious flowsheet [facility] FM [address] [place] [address] [place] [address] Jennifer Tucker PA 01/18/2025 Travel from Last [...] How often do you attend chur or pentecostalism services? More than 4 times per year 01/28/2024 Do you belong to any clubs o r organizations such as hinduism groups, unions, fraternal or athletic groups, or [...] Recorded Patient Health Questionnaire-2 Score 0 01/18/2025 [facility] Occupat ional Health - Occupational [...] place to sleep or slept in a chcf (including now)? No 01/28/2024 Comments No Sex and Gender Information Value Date Recorded Sex Assigned at Not on file Legal Sex Female 6:51 PM EDT Gender Identity Not on file Sexual Orientation Not on file Travel History Travel Start Travel End [place] 03/22/2025 03/27/2025 Last Filed Vital Signs Vital [...] Visit [facility] FM [address] [facility] [address] [place] [address] Jennifer Tucker PA [address] [place] [address] [place] [address] 04/04/2026 10:00 AM EDT Office Visit [facility] B[facility] OB [address] [facility] [place] [address] Luba Corral PA [address] [facility] [place] [address] Health Maintenance Due Date Last Done Comments Influenza Vaccine (#1) 2025 09/22/2023, 2005 Procedures Procedure Name Priority Date/Time Associated Diagnosis Comments MLR HEMOGLOBIN A1C Routine 03/29/2025 3: 47 PM EDT [facility] CMP (CMP) (FOR REMOTE [facility] USE) Routine 03/29/2025 3:47 PM EDT [facility] FERRITIN Routine 03/19/2025 11:13 AM EDT [...] fatigue from Last 3 Months Results * MLR HEMOGLOBIN A1C (03/29/2025 3:47 PM EDT) GLYCOHEMOGLOBIN A1C 5.1 4.5 - 6.2 % TB Comment: ADA RECOMMENDED LIMIT 4.0 - 6.0 ADA THERAPEUTIC TARGET < 7.0 ACTION SUGGESTED > 7.0 ESTIMATED AVERAGE GLUCOSE 100 mg/dL TBH 03/29/2025 3:47 PM EDT 03/29/2025 3:49 PM EDT Narrative CLINISYNC - 03/29/2025 5:34 PM EDT Generic External Data Provider [facility] F inal [facility] * (ABNORMAL) [facility] CMP (CMP) (FOR REMOTE [facility] USE) (03/29/2025 3:47 PM EDT) SODIUM 140 136 - 145 mmol/L TBH POTASSIUM 3.9 3.5 - 5.1 mmol/L TBH CHLORIDE 103 98 - 107 mmol/L TBH CARBON DIOXIDE 28.3 21.0 - 32.0 mmol/L TBH ANION GAP 12.6 TBH GLUCOSE 112(H) 74 - 106 mg/dL TBH BLOOD UREA NITROGEN 13.0 7.0 - 18.0 mg/dL TBH CREATININE 0.63 0.55 - 1.02 mg/dL TBH TBH EGFR-AF [place] >60 >=60 mL/min/1. 73m 2 TBH TBH EGFR-NON AF [place] >60 >=60 mL/min/1. 73m 2 TBH BUN [...] External Data Provider CLINISYNC F inal Result Performing Organization Address City/[facility]/ZIP Co de Phone Number [facility] * [facility] FERRITIN (03/19/2025 11:13 AM EDT) FERRITIN 35.0 8.0 - 252.0 ng/mL TB 03/19/2025 11:1 3 AM EDT 03/19/2025 11:14 AM EDT Narrative CLINISYNC - 03/19/2025 2:23 PM EDT Jennifer LAU CLINISYNC Final Result Performing Organization Address City/[facility] Co de Phone Number CLINISYNC [...] Performing Organization Information Site ID: QPT Name: [employer] [facility] Address: [address] [place] [address], [address] [place] [phone] Director: Tavo Barnes MD Jennifer LAU LAB BLOOD ORDERABLES Final Res ult Performing Organization Address [facility] de Phone Number [facility] * TSH W/REFLEX [...] Performing Organization Information Site ID: QPT Name: [employer] [facility] Address: [address] [place] [address], [address] [place] [phone] Director: Tavo Barnes MD Jennifer LAU LAB BLOOD ORDERABLES Final Res ult Performing Organization Address [facility] de Phone Number [facility] * (ABNORMAL) Vitamin [...] D, (D2,D3), LC/MS/MS is recommended: order code [id number] (patients >2yrs). See Note 1 Note 1 For additional information, please refer to http://education.[facility]/faq/KKP265 (This link is being provided for informational/ educational purposes only.) Blood Venous blood specimen / Unknown 01/19/2025 9:10 AM EDT 01/19/2025 3:11 PM EDT Narrative [facility] - 01/20/2025 9:17 AM EDT FASTING:NO FASTING: NO Resulting Agency Comment Performing Organization Information Site ID: QPT Name: [employer] [facility] Address: [address] [place] [address], [address] [place] [phone] Director: Tavo Barnes MD us Jennifer LAU LAB BLOOD ORDERABLES Final Res ult [facility] * CBC (01/19/2025 9:10 AM EDT) Pathologist [facility] WHITE BLOOD CELL COUNT 4.8 3.8 - [...] Performing Organization Information Site ID: QTW Name: [facility] Address: [address] [place] [phone] Director: Lu Champagne Jennifer LAU LAB BLOOD ORDERABLES Final Res ult [facility] from Last 3 Months Insurance [facility] BS Care Teams Concrete Gun Operator Relationship Specialty Start Date End Date Noemi Yoo MD [address] [address] PCP - General Family Medicine 06/24/24 Jennifer Tucker PA [address] [facility] 110 [place] [address] Physician Foam Machine Operator Family Medicine 06/24/24
--- OUTSIDE RECORDS SUMMARY | 2025-03-29 19:23 | XMS_ITS | Encounter Summary ---
Author Organization [facility] Address [address] [place] [address] Care Team Providers Care Mail Delivery Supervisor Name Role Phone Deshawn Caal MD Primary Care Provider + [phone] Noemi Yoo MD Primary Care Provider [phone] Jennifer Tucker Unavailable Encounter Details Date Type Department Care Team (Late st Contact Info) Description 06/20/2024 Clinisync Result Encounter [facility] External Department Unsolicited Nenita Blum, DO [address] [facility] [place] [address] Social History Tobacco Use Types [...] often do you attend chur ch or uatsdin services? More than 4 times per year 01/28/2024 Do you belong to any clubs o r organizations such as druze groups, unions, fraternal [...] and heating? Not hard at all 01/28/2024 [facility] of Occupat ional Health - Occupational Stress [...] place to sleep or slept in a usp (including now)? No 01/28/2024 Comments No Sex [...] Visit [facility] CI FM [address] [facility] [address] [place] [address] Jennifer Tucker PA [address] [facility] [address] [place] [address] 04/04/2026 10:00 AM EDT Office Visit [facility] BCP OB [address] [facility] [place] [address] Luba Corral PA [address] [facility] [place] [address] documented as of this encounter Procedures Procedure Name Priority Date/Time Associated Diagnosis Comments US PELVIS W/ TRANSVAGINAL 06/20/2024 8:49 PM EDT documented in this encounter Results * US PELVIS W/ TRANSVAGINAL (06/20/2024 8:49 PM EDT) Anatomical Region Laterality Modality Other 06/20/2024 8:49 PM EDT Narrative 06/20/2024 8:51 PM EDT The [address] [address] Ultrasound Report Signed Patient: JOSELIN BLACKBURN MR#: [id number] : 2005 Acct:[id number] Age/Sex: 18 / F ADM Date: 06/18/24 Loc: US Attending Dr: Nenita Blum D.O. Ordering Physician: Nenita Blum D.O. Date of Service: 06/18/24 Procedure(s): US pelvis w/ transvaginal Accession Number(s): [id number] cc: Nenita Blum D.O.; Physician,Non-Staff [place] [id number] Patient Name: JOSELIN BLACKBURN MRN: [facility]:[id number] date: 2005 Sex: F Assigned Patient Location: Current Patient Location: US Accession/Order Number: [id number] Exam Date: 06/18/2024 10:05 Report Date: 06/20/2024 [...] M.D. Signed By: 06/20/242050 DD/ 48 TD/TT: Alliances Consultant: Procedure Note Radiology, Radiologist, MD - 06/20/[address] [address] Ultrasound Report Signed Patient: JOSELIN BLACKBURNMR#: [id number] : 2005Acct:[id number] Age/Sex: 18 / FADM Date: 06/18/24 Loc: US Attending Dr: Nenita Blum D.O. Ordering Physician: Nenita Blum D.O. Date of Service: 06/18/24 Procedure(s): US pelvis w/ transvaginal Accession Number(s): [id number] cc: Nenita Blum D.O.; Physician,Non-Staff Marissa The [address] [address] Patient Name: JOSELIN BLACKBURN MRN: [facility]:[id number] date: 2005 Sex: F Assigned Patient Location: US Current Patient Location: US Accession/Order Number: [id number] Exam Date: 06/18/2024 10:05 Report Date: 06/20/2024 20:49 At the request of: NEINTA BLUM Procedure: US pelvis w/ transvaginal PROCEDURE: [...] Sheridan M.D. Signed By:06/20/242050 DD/ 48 TD/TT: Alliances Consultant: us Nenita Viktoria DO [facility] Final Result documented in this encounter Visit Diagnoses Not on filedocumented in this encounter Care Teams Mail Delivery Supervisor Relationship Specialty Start Date End Date Deshawn Caal MD PCP - General Family Medicine 04/14/23 06/23/24 Noemi Yoo MD [address] [address] PCP - General Family Medicine 06/24/24 Jennifer Tucker PA [address] [address] Physician Partner Integration Planner Family Medicine 06/24/24 documented as of this encounter
--- OUTSIDE RECORDS SUMMARY | 2025-03-29 19:23 | XMS_ITS | Encounter Summary ---
Author Organization [employer] [facility] Address [id number] [address] [place] [address] Care Team Providers Care Air Crew Member Name Role Phone Deshawn Caal DO Primary Care Provider [phone] Encounter Details Date Type Department Care Team (Late st Contact Info) Description 09/15/2018 Documentation [facility] [address] [place] [address] Coleen Lockwood LPN Social History [...] documented as of this encounter Care Teams Air Crew Member Relationship Specialty Start Date End Date Deshawn Caal DO PCP - General Family Medicine 06/23/17 documented as of this encounter
--- OUTSIDE RECORDS SUMMARY | 2025-03-29 19:23 | XMS_ITS | Encounter Summary ---
Author Organization [facility] Address [address] [facility] [place] [address] Care Team Providers Care Cutter Head Sharpener Name Role Phone Noemi Yoo MD Primary Care Provider [phone] Jennifer Tucker Unavailable [phone] Encounter Details Date Type Department Care Team (Late st Contact Info) Description 03/29/2025 Bamboo flowsheet [facility] BCP OB [address] [facility] [place] [address] Luba Corral PA [address] [place] [address] Social History Tobacco Use Types Packs/Day [...] often do you attend chur ch or restorationism services? More than 4 times per year 01/28/2024 Do you belong to any clubs o r organizations such as latter-day groups, unions, fraternal or athletic groups, or [...] Recorded Patient Health Questionnaire-2 Score 0 01/18/2025 [facility] of Occupat ional Health - Occupational [...] file Travel History Travel Start Travel End [place] 03/22/2025 03/27/2025 documented as of this encounter Plan of Treatment Upcoming Encounters Date Type Department Care Team (Late st Contact Info) Description 06/24/2025 10:30 AM EDT Office Visit [facility] [address] [facility] [address] [place] [address] Jennifer Tucker PA [address] [facility] [address] [place] [address] 04/04/2026 10:00 AM EDT Office Visit [facility] BCP OB [address] [facility] [address] Luba Corral PA [address] [place] [address] documented as of this encounter Visit Diagnoses Not on filedocumented in this encounter Care Teams Cutter Head Sharpener Relationship Specialty Start Date End Date Noemi Yoo MD [address] [place] [address] [place] [address] PCP - General Family Medicine 06/24/24 Jennifer Tuckre PA [address] [place] [address] [place] [address] Physician Oracle Engineer Family Medicine 06/24/24 documented as of this encounter
--- OUTSIDE RECORDS SUMMARY | 2025-03-29 19:23 | XMS_ITS | Encounter Summary ---
Author Organization [facility] Address [address] [place] [address] Care Team Providers Care Commercial Loan Specialist Name Role Phone Noemi Yoo MD Primary Care Provider [phone] Jennifer Tucker Unavailable [phone] Encounter Details Date Type Department Care [...] How often do you attend chur or baptism services? More than 4 times per year 01/28/2024 Do you belong to any clubs o r organizations such as tenriism groups, unions, fraternal or athletic groups, or [...] Recorded Patient Health Questionnaire-2 Score 0 01/18/2025 [facility] of Occupat ional Health - [...] Visit [facility] FM [address] [facility] [address] [place] [address] Jennifer Tucker PA [address] [facility] [address] [place] [address] 04/04/2026 10:00 AM EDT Office Visit [facility] BCP OB [address] [facility] [place] [address] Luba Corral PA [address] [facility] [address] [place], [place] [address] documented as of this encounter Visit Diagnoses Not on filedocumented in this encounter Care Teams Commercial Loan Specialist Relationship Specialty Start Date End Date Noemi Yoo MD [address] [facility] [address] [place] [address] PCP - General Family Medicine 06/24/24 Jennifer Tucker PA [address] [facility] [address] [place] [address] Physician Clothing Designer Family Medicine 06/24/24 documented as of this encounter
--- OUTSIDE RECORDS SUMMARY | 2025-03-29 19:23 | XMS_ITS | Encounter Summary ---
Author Organization [facility] Address [address] [place] [address] Care Team Providers Care Headlight Assembler Name Role Phone Noemi Yoo MD Primary Care Provider [phone] Jennifer Tucker Unavailable [phone] Encounter Details Date Type Department Care Team (Late st Contact Info) Description 01/20/2025 Results Follow-Up [facility] FM [address] [facility] [address] [place] [address] Jennifer Tucker PA [address] [facility] [address] [place] [address] Low ferritin (Primary Dx); Vitamin D deficiency [...] Recorded Patient Health Questionnaire-2 Score 0 01/18/2025 [facility] - Occupational Stress Questionnaire Answer Date [...] Travel History Travel Start Travel End [place] 03/22/2025 03/27/2025 documented as of this encounter Plan of Treatment Upcoming Encounters Date Type Department Care Team (Late st Contact Info) Description 06/24/2025 10:30 AM EDT Office Visit [facility] [address] [place] [address] [place] [address] Jennifer Tucker PA [address] [facility] [address] [place] [address] 04/04/2026 10:00 AM EDT Office Visit [facility] BCP OB [address] [place] [address] Luba Corral PA [address] [facility] [address] [place], [place] [address] documented as of this encounter Visit Diagnoses Diagnosis Low ferritin- Primary Other nonspecific findings on examination of blood Vitamin D deficiency documented in this encounter Care Teams Headlight Assembler Relationship Specialty Start Date End Date Noemi Yoo MD [address] [place] [address] [place] [address] PCP - General Family Medicine 06/24/24 Jennifer Tucker PA [address] [place] [address] [place] [address] Physician Evs Tech Family Medicine 06/24/24 documented as of this encounter
--- OUTSIDE RECORDS SUMMARY | 2025-03-29 19:23 | XMS_ITS | Encounter Summary ---
Author Organization [facility] Address [address] [place] [address] Care Team Providers Care Marketing Communications Associate Name Role Phone Deshawn Caal MD Primary Care Provider + [phone] Noemi Yoo MD Primary Care Provider [phone] Jennifer Tucker Unavailable [phone] Encounter Details Date Type Department Care Team (Late st Contact Info) Description 2023 Clinisync Result Encounter NOMS External Department Unsolicited Nenita Blum, DO [address] [facility] [place] [address] Social History Tobacco Use Types [...] Travel History Travel Start Travel End [place] 03/22/2025 03/27/2025 COVID-19 Exposure Response Date Recorded [...] EDT Office Visit [facility] FM [address] [facility] 110 [place] [address] Jennifer Tucker PA 112 [facility] [address] [place] [address] 04/04/2026 10:00 AM EDT Office Visit [facility] BCP OB [address] [facility] [place] [address] Luba Corral PA [address] [place] [address] documented as of this encounter Procedures Procedure Name Priority Date/Time Associated Diagnosis Comments US OB TRANSVAGINAL 2023 3: 32 PM EST documented in this encounter Results * US OB TRANSVAGINAL (2023 3:32 PM EST) Anatomical Region Laterality Modality Other 2023 3:32 PM EST Narrative 2023 3:32 PM EST [address] [address] Ultrasound Report Signed Patient: JOSELIN BLACKBURN MR#: [id number] : 2005 Acct:[id number] Age/Sex: 18 / F ADM Date: 08/11/23 Loc: US Attending Dr: Nenita Blum D.O. Ordering Physician: Nenita Blum D.O. Date of Service: 08/11/23 Procedure(s): US OB transvaginal Accession Number(s): [id number] cc: Nenita Blum D.O.; Physician,Non-Staff M.Kurt The [address] [address] Patient Name: JOSELIN BLACKBURN MRN: [id number] date: 2005 Sex: F Assigned Patient Location: US Current Patient Location: US Accession/Order Number: [id number] Exam Date: 2023 11:10 Report Date: 2023 [...] Signed By: 08/11/23 1534 DD/ 31 TD/TT: Resident Athletic Trainer: Procedure Note Radiology, Radiologist, - 20[address] [place] [address] Ultrasound Report Signed Patient: JOSELIN BLACKBURN#: [id number] : 2005Acct:[id number] Age/Sex: 18 / FADM Date: 08/11/23 Loc: US Attending Dr: Nenita Blum D.O. Ordering Physician: Nenita Blum D.O. Date of Service: 08/11/23 Procedure(s): US OB transvaginal Accession Number(s): [id number] cc: Nenita Blum D.O.; Physician,Non-Staff MNancyDNancy [place] [id number] Patient Name: JOSELIN BLACKBURN MRN: [id number] date: 2005 Sex: F Assigned Patient Location: US Current Patient Location: US Accession/Order Number: [id number] Exam Date: 2023 11:10 Report Date: 2023 [...] North M.D. Signed By:08/11/234 DD/ 31 TD/TT: Resident Athletic Trainer: us Nenita Viktoria DO [facility] Final Result documented in this encounter Visit Diagnoses Not on filedocumented in this encounter Care Teams Marketing Communications Associate Relationship Specialty Start Date End Date Deshawn Caal MD PCP - General Family Medicine 04/14/23 06/23/24 Noemi Yoo MD [address] [address] PCP - General Family Medicine 06/24/24 Jennifer Tucker PA 112 [facility] [address] [place] [address] Physician Scrap Metal Collector Family Medicine 06/24/24 documented as of this encounter
--- OUTSIDE RECORDS SUMMARY | 2025-03-29 19:23 | XMS_ITS | Encounter Summary ---
Author Organization [facility] Degree Controls [facility] tem Address [id number] [address] [place] [address] Care Team Providers Care Stable Cleaner Name Role Phone Kalina Caalew Mi CASANOVA Primary Care Provider [phone] Encounter Details Date Type Department Care Team (Late st Contact Info) Description 08/26/2023 Orders Only Maternal- Medicine at [facility] [address] [place] [address] Ref Prov, [place] [address] Social History Tobacco Use Types Packs/Day Years [...] 11:22 AM EST) Anatomical Region Laterality Modality OB-VESSEL OPERATOR Ultrasound us Not In System Ref Prov IMG US ORDERABLES Final R esult * Unlisted Genetic Test (06/05/2023 11:25 AM EDT) us Not In System Ref Prov LAB BLOOD ORDERABLES Joelle l Result MANUALLY TRANSCRIBED RESULTS * Ultrasound limited 1 or more fetus (05/15/2023 11:20 AM EDT) Anatomical Region Laterality Modality OB-VESSEL OPERATOR Ultrasound us Not In System Ref Prov IMG US ORDERABLES Final R esult documented in this encounter Visit Diagnoses Not on filedocumented in this encounter Additional Health Concerns Infection Onset Date Last Indicated Resolved Time COVID-19 Rule-Out 10/08/2023 10/08/2023 10/08/2023 11:05 AM EST documented as of this encounter Care Teams Stable Cleaner Relationship Specialty Start Date End Date Deshawn Caal DO PCP - General Family Medicine 06/23/17 documented as of this encounter
--- OUTSIDE RECORDS SUMMARY | 2025-03-29 19:23 | XMS_ITS | Encounter Summary ---
Author Organization [facility] Address [address] [place] [address] Care Team Providers Care Under Ground Miner Name Role Phone Deshawn Caal MD Primary Care Provider + [phone] Noemi Yoo MD Primary Care Provider [phone] Jennifer Tucker Unavailable [phone] Encounter Details Date Type Department Care Team (Late st Contact Info) Description 2023 Clinisync Result Encounter NOMS External Department Unsolicited Nenita Blum, DO [address] [facility] [place] [address] Social History Tobacco Use Types [...] Travel Start Travel End [place] 03/22/2025 03/27/2025 COVID-19 Exposure Response Date Recorded [...] EDT Office Visit [facility] FM 112 [facility] 110 [place] [address] Jennifer Tucker PA 112 [facility] [address] [place] [address] 04/04/2026 10:00 AM EDT Office Visit [facility] BCP OB [address] [facility] [place] [address] Luba Corral PA [address] [facility] [address] [place], [place] [address] documented as of this encounter Procedures Procedure Name Priority Date/Time Associated Diagnosis Comments US OB ANATOMY 2023 3:32 PM EST documented in this encounter Results * US OB ANATOMY (2023 3:32 PM EST) Anatomical Region Laterality Modality Other 2023 3:32 PM EST Narrative 2023 3:32 PM EST [address] [address] Ultrasound Report Signed Patient: JOSELIN BLACKBURN MR#: [id number] : 2005 Acct:[id number] Age/Sex: 18 / F ADM Date: 08/11/23 Loc: US Attending Dr: Nenita Blum D.O. Ordering Physician: Nenita Blum D.O. Date of Service: 08/11/23 Procedure(s): US OB anatomy Accession Number(s): [id number] cc: Nenita Blum D.O.; Physician,Non-Staff Marissa The [address] [address] Patient Name: JOSELIN BLACKBURN MRN: [id number] date: 2005 Sex: F Assigned Patient Location: US Current Patient Location: US Accession/Order Number: [id number] Exam Date: 2023 11:10 Report Date: 2023 [...] Signed By: 08/11/23 1534 DD/ 31 TD/TT: Drier Take Off Tender: Procedure Note Radiology, Radiologist, - 2023 [place] [address] Ultrasound Report Signed Patient: JOSELIN BLACKBURN#: [id number] : 2005Acct:[id number] Age/Sex: 18 / FADM Date: 08/11/23 Loc: US Attending Dr: Nenita Blum D.O. Ordering Physician: Nenita Blum D.O. Date of Service: 08/11/23 Procedure(s): US OB anatomy Accession Number(s): [id number] cc: Nenita Blum D.O.; Physician,Non-Staff Marissa [place] [id number] Patient Name: JOSELIN BLACKBURN MRN: [id number] date: 2005 Sex: F Assigned Patient Location: US Current Patient Location: US Accession/Order Number: [id number] Exam Date: 2023 11:10 Report Date: 2023 [...] M.D. Signed By:08/11/23 1534 DD/ 31 TD/TT: Drier Take Off Tender: us Nenita Viktoria DO [facility] Final Result documented in this encounter Visit Diagnoses Not on filedocumented in this encounter Care Teams Under Ground Miner Relationship Specialty Start Date End Date Deshawn Caal MD PCP - General Family Medicine 04/14/23 06/23/24 Noemi Yoo MD [address] [place] [address] [place], [place] [address] PCP - General Family Medicine 06/24/24 Jennifer Tucker PA [address] [place] [address] [place] [address] Physician Assembler Wire Group Family Medicine 06/24/24 documented as of this encounter
--- OUTSIDE RECORDS SUMMARY | 2025-03-29 19:36 | XMS_ITS | CCD ---
Author Organization [facility] Care Team Providers Care Bobbin Inspector Name Role Phone Mishel Dimas Unavailable JUDIE MISHEL Mi Primary Care Unavailable Ahmet Moreno Admitting Unavailable Ahmet Moreno Attending Unavailable Ahmet Moreno Attending Unavailable JUDIE, MISHEL A Primary Care Unavailable Ahmet Moreno H Admitting Unavailable Kathyackbari, DO Mishel Primary Care Provider [phone] Judie, DO Hess Attending Provider [phone] GIANNA FITZGERALD Referring Unavailable BRANIECKI, MISHEL A Primary Care Unavailable BRANIECKI, MISHEL A Referring Unavailable BRANIECKI, MISHEL A Primary Care Unavailable DEIRDRE ZUÑIGA Admitting Unavailable DEIRDRE ZUÑIGA Attending Unavailable BRANIECKI, MISHEL A Primary Care Unavailable SILVER RICHARDS Consulting Unavailable STEFANO MORALES Consulting Unavailable JEWEL CERVANTES Consulting Unavailable AMICLAR, GIANNA Referring Unavailable BRANIECKI, MISHEL A Primary Care [...] Unavailable BRANIECKI, MISHEL A Primary Care Unavailable SHUFFLE, GIANNA Referring Unavailable BRANIECKI, MISHEL A Primary Care Unavailable CARLO WRIGHT Attending Unavailable CARLO WRIGHT Referring Unavailable BRANIECKI, MISHEL A Primary Care Unavailable BRANIECKI, MISHEL A Primary Care Unavailable KATHYACÉSARMISHEL Referring Unavailable JUDIEMISHEL Primary Care Unavailable Judie Mishel Primary Care Provider MD Shivani Ghosh Attending Provider Judie Mishel Admitting Unavailable Mishel Dimas Primary Care Unavailable Mishel Dimas Attending Unavailable Shivani Ghosh Admitting Unavailable Shivani Ghosh Attending Unavailable Mishel Dimas Primary Care Unavailable Noemi Yoo MD Primary Care Provider [phone] Jennifer Mcneil Unavailable Mishel Dimas MD Primary Care Provider Mishel Dimas DO Primary Care Provider JENNIFER HERRERA Attending Unavailable MARCK STRAUSS Attending Unavailable ADVIN BLUM Attending Unavailable DAVIN BLUM Attending Unavailable JENNIFER HERRERA Attending Unavailable LUBA CORRAL Attending Unavailable Allergies Allergy Classification Reported Allergen(s) Allergy Type Date of Onset Reaction(s) Facility (1 source) No Known Medication Allergies; Translations: [No Known Medication Allergies] Propensity to adverse reactions to drug (disorder) [facility] Repository Medications Current Medications Medication Drug [...] Once a day for 90 day(s) Active cholecalciferol 0.05 mg oral capsule (5 sources) Vitamin D Start: 01-20-2025 take 1 capsule by mouth once daily cholecalciferol (Vitamin D-3) 50 MCG (2000 UT) capsule Indications: Vitamin D deficiency Take 1 capsule (50 mcg) by mouth Daily 90 capsule 3 01/20/2025 Active docusate sodium 100 mg oral capsule [...] 14 Days Active ferrous sulfate 325 mg delayed release oral tablet (18 sources) Start: 01-20-2025 take 1 tablet by mouth at mealtime ferrous sulfate (Fe Tabs) 325 (65 Fe) MG EC tablet Indications: Low ferritin Take 1 tablet (325 mg) by mouth in the morning. Take with meals. Do not crush, chew, or split. 30 tablet 2 01/20/2025 Active Start: 04-16-2024 End: 01-18-2025 take 1 tablet by mouth every other day FeroSul 325 (65 Fe) MG tablet Take 1 tablet by mouth every other day 04/16/2024 01/18/2025 Discontinued (Other) ibuprofen 800 mg oral tablet (15 sources) [...] doses in a 24 hour period levonorgestrel 0.969764 mg/hr intrauterine system (16 sources) Progestin, Progestin-containing Intrauterine Device Start: 06-22-2024 End: 06-21-2029 Levonorgestrel intrauterine device 52 mg 24 hr metFORMIN hydrochloride 500 mg extended release oral tablet (3 sources) Biguanide Start: 03-29-2025 End: 04-28-2025 take 1 tablet by mouth every twenty-four hours at mealtime metFORMIN XR (Glucophage-XR) 500 MG 24 hr tablet Indications: Well woman exam with routine gynecological exam Take 1 tablet (500 mg) by mouth in the evening. Take with meals Do not crush, chew, or split. 30 tablet 11 03/29/2025 04/28/2025 Active oxyCODONE hydrochloride 5 mg oral tablet (3 [...] mg 20 tablet 0 11/13/2023 11/18/2023 Active -fvvf-by lic-omega3 29-1-400 mg combo pack,tablet & capDR (11 sources) fruinpgj58-bwzo- f olic-omega3 29-1-400 mg combo pack,tablet & capDR Take 1 tablet by mouth. 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 [...] Onset: 07-31-2021 Resolved: 06-24-2024 Chronic Mood disorders (20 sources) Moderate major depression, single episode; Translations: [Major depressive disorder, single episode, moderate] Onset: 07-31-2021 Resolved: 07-31-2021 Chronic Other complications of (4 sources) Obstetric investigative finding; Translations: [Supervision of other high risk pregnancies, unspecified trimester] 02-15-2020 Episodic Other endocrine disorders (18 sources) Polycystic ovary syndrome; Translations: [Polycystic ovarian syndrome] Onset: 06-24-2024 06-24-2024 Chronic Other nutritional; endocrine; and metabolic disorders (9 sources) Obesity; Translations: [Class 1 obesity without [...] Hemorrhage during ; abruptio placenta; placenta previa (20 sources) Third trimester bleeding; Translations: [Antepartum hemorrhage, [...] unspecified] Onset: 08-28-2023 Episodic Other complications of (18 sources) Complication occurring during ; Translations: [Other [...] Resolved: 11-19-2023 08-28-2023 Episodic Urinary tract infections (18 sources) Urinary tract infectious disease; Translations: [Urinary tract infection, site not specified] Onset: 06-24-2024 Resolved: 06-24-2024 11-02-2021 Episodic Results Test Name Value Interpretation Reference Range Facility [facility] CMP (CMP) (FOR REMOTE FH C USE)on 03-29-2025 Albumin [Mass/Vol] 4 g/dL 3.4 - 5.0 g/dL [facility] ALBUMIN GLOBULIN RATIO 1.1 NO [facility] ALP [Catalytic activity/Vol] 76 U/L 46 - 116 U/L [facility] ALT [Catalytic activity/Vol] 27 U/L 14 - 59 U/L [facility] Anion gap [Moles/Vol] 12.6 mmol/L NO [facility] AST [Catalytic activity/Vol] 19 U/L 15 - 37 U/L [facility] Bilirubin [Mass/Vol] 0.5 mg/dL 0.2 - 1 .0 mg/dL [facility] Calcium [Mass/Vol] 9.3 mg/dL 8.5 - 10. 1 mg/dL [facility] Chloride [Moles/Vol] 103 mmol/L 98 - 10 7 [facility] CO2 [Moles/Vol] 28.3 mmol/L 21.0 - 32.0 mmol/L [facility] Creatinine [Mass/Vol] 0.63 mg/dL 0.55 - 1.02 mg/dL [facility] GFR/1.73 sq M.predicted CKD-EPI (S/P/Bld) [Vol rate/Area] >60 >=60 mL/min/1.[address] [facility] Globulin (S) [Mass/Vol] 3.5 g/dL N [facility] Glucose [Mass/Vol] 112 mg/dL High 74 - 106 mg/dL [facility] Interpretation and review of laboratory results Abnormal [facility] Potassium [Moles/Vol] 3.9 mmol/L 3.5 - 5.1 mmol/L [facility] Protein [Mass/Vol] 7.5 g/dL 6.4 - 8.2 g/dL [facility] Sodium [Moles/Vol] 140 mmol/L 136 - 145 mmol/L [facility]H EGFR-NON AF HAITIAN >60 >=6 0 mL/min/1.[address] [facility] Urea nitrogen [Mass/Vol] 13 mg/dL 7.0 - 18.0 mg/dL [facility] Urea nitrogen/Creatinine [Mass ratio] 20.6 mg/mg [facility] FERRITINon 03-19-2025 Ferritin [Mass/Vol] 35 ng/mL 8.0 - 25 2.0 ng/mL [facility] CBC (H/H, RBC, INDICES, WBC, PLT)on 01-20-2025 Erythrocyte distribution width (RBC) [Ratio] 13.7 % Normal 11.0-15.0 [facility] Comment on above: Performed By: #### 1 7306, 0795, 90497 #### [facility] [address], [address] [place], [place] [id number] Production Intern: Tavo Barnes MD #### 1759 #### [place] [address] Production Intern: Lu Silva Flati Hematocrit (Bld) [Volume fraction] 44.8 % Normal 35.0-45.0 [facility] Comment on above: Performed By: #### 1 7306, 570, 00144 #### [facility] [address], [address] [place] [address] Production Intern: Tavo Barnes MD #### 1759 #### [facility] [address] [place] [address] Production Intern: Lu Silva Flati Hemoglobin (Bld) [Mass/Vol] 14.8 g/dL Normal 11.7-15. 5 [facility] Comment on above: Performed By: #### 1 7306, 975 #### [facility] [address], [address] [place], [place] [id number] Production Intern: Tavo Barnes MD #### 1759 #### [facility] [address] [place] [address] Production Intern: Lu Champagne MCH (RBC) [Entitic mass] 29.4 pg Normal 27.0-33.0 [facility] Comment on above: Performed By: #### 1 7305, 5615, #### [facility] [address], [address] [place] [address] Production Intern: Tavo Barnes MD #### 1759 #### [facility] [address] Production Intern: Lu Champagne MCHC (RBC) [Mass/Vol] 33.0 g/dL [...] patient's clinical condition. Performed By: #### 1 7305, 5615, #### [facility] [place] [address] Production Intern: Tavo Barnes MD #### 1759 #### [facility] [address] [place], [place] [id number] Production Intern: Lu Champagne MCV (RBC) [Entitic vol] 88.9 fL Normal 80.0-100.0 [facility] Comment on above: Performed By: #### 1 73, 5615, #### [facility] [place] [address] Production Intern: Tavo Barnes MD #### 1759 #### [facility] [address] [place], [place] [id number] Production Intern: Lu Champagne Platelet mean volume (Bld) [Entitic vol] 10.9 fL Normal 7.5-12.5 [facility] Comment on above: Performed By: #### 1 7306, 5616, 15819 #### [place] [address] Production Intern: Tavo Barnes MD #### 1759 #### [place] [address] Production Intern: Lu Champagne Platelets (Bld) [#/Vol] 215 10*3/uL Normal 140-400 [facility] Comment on above: Performed By: #### 1 7306, 561, 929[address] #### [facility] [address], [address] [place] [address] Production Intern: Tavo Barnes MD #### 1759 #### [facility] [address] Production Intern: Lu Champagne RBC (Bld) [#/Vol] 5.04 10*6/uL Normal 3.80-5.10 [facility] Comment on above: Performed By: #### 1 7306, 561, 44394 #### [place] [address] Production Intern: Tavo Barnes MD #### 1759 #### [facility] [address] Production Intern: Lu Champagne WBC (Bld) [#/Vol] 4.8 10*3/uL Normal 3.8-10.8 [facility] Comment on above: Performed By: #### 1 7306, 561, 15007 #### [place] [address] Production Intern: Tavo Barnes MD #### 1759 #### [place] [address] Production Intern: Lu R Flati IRON, TIBC AND FERRITIN ADELA Johnson 01-20-2025 % SATURATION 31 % (calc) Normal 16-45 [facility] Comment on above: Order Comment: FASTI NG:NO FASTING: NO Performed By: #### 1 7306, 5616, 06736 #### [facility] [address], [address] [place] [address] Production Intern: Tavo Barnes MD #### 1759 #### [facility] [address] Production Intern: Lu Champagne Ferritin [Mass/Vol] 14 ng/mL Low 16-154 [facility] Comment on above: Order Comment: FASTI NG:NO FASTING: NO Performed By: #### 1 7306, 5616, 25747 #### [facility] [address], [address] [place] [address] Production Intern: Tavo Barnes MD #### 1759 #### [facility] [address] Production Intern: Lu Champagne IRON BINDING CAPACITY 373 mcg/dL (calc) Normal 250-450 [facility] Comment on above: Order Comment: FASTI NG:NO FASTING: NO Performed By: #### 1 7306, 5616, 38714 #### [facility] [address], [address] [place] [address] Production Intern: Tavo Barnes MD #### 1759 #### [facility] [place] [address] Production Intern: Lu Champagne IRON, TOTAL 116 mcg/dL Normal 40-190 [facility] Comment on above: Order Comment: FASTI NG:NO FASTING: NO Performed By: #### 1 7306, 5616, 30379 #### [facility] [address], [address] [place] [address] Production Intern: Tavo Barnes MD #### 1759 #### [facility] [address] [place] [address] Production Intern: Lu Champagne TSH W/REFLEX TO FT4on 2024 TSH W/REFLEX TO FT4 1.04 mIU/L Normal [facility] Comment on above: Result Comment: Refe rence Range > or = 20 Years 0.40-4.50 Ranges First trimester 0.26-2.66 Second trimester 0.55-2.73 Third trimester 0.43-2.91 Performed By: #### 1 7306, 5616, 39405 #### [facility] [address], [address] [place] [address] Production Intern: Tavo Barnes MD #### 1759 #### [facility] [address] [place] [address] Production Intern: Lu Champagne VITAMIN D,25-OH,TOTAL,IAon 0 01-20-2025 VITAMIN [...] D, (D2,D3), LC/MS/MS is recommended: order code [id number] (patients >2yrs). See Note 1 Note 1 For additional information, please refer to http://education.MobiMagic/faq/ORJ940 (This link is being provided for informational/ educational purposes only.) Performed By: #### 1 7306, 561, 93441 #### [facility] [address] , [address] [place] [address] Production Intern: Tavo Barnes MD #### 1759 #### [facility] [address] [place] [address] Production Intern: Lu Champagne ALL DEHYDROEPIANDROSTERONEon 08-27-2024 DHEA, SERUM 428 ng/dL 31 - 701 ng/dL [facility] Comment on above: This test was develo ped and its performance characteristics determined by [facility]. It has not been cleared or approved by the Food and Drug Administration. Performed at: [address] [id number] [facility] Services Specialist: Ede Cortez MD, Phone: [phone] [facility] ALL DHEA SULFATEon DHEA-SULFATE 293.0 ug/dL 110.0 - 431.7 ug/dL [facility] Comment on above: Performed at: [address] [id number] Veterans Services Specialist: Marbin Tracey PhD, Phone: [phone] [facility] Insertion/Removal of Contrac eptive Capsuleon 07-08-2024 Margie [...] fashion: yes Procedure: Procedure: Removal Left/right: Right [facility] HCG ( test) Ql (U)o n 06-22-2024 Interpretation and review of laboratory results Normal [facility] Preg Test, Ur Negative [facility] IUD Insertionon 06-22-2024 Jennifer Irving LPN 06/23/2024 9:54 AM IUD Insertion Date/Time: 06/22/2024 2:06 PM Performed by: Davin Blum DO Authorized by: Davin Blum DO Consent: Consent obtained: Written Consent given by: Patient Procedure risks and benefits discussed: yes Patient questions answered: yes Patient agrees, verbalizes understanding, and wants to proceed: yes Educational handouts given: yes Instructions and paperwork completed: yes Dameron protocol: Patient states understanding of procedure being [...] in 4 weeks for a string check. [facility] ALL CBC WITH AUTO DIFFon BASOPHILS ABSOLUTE AUTO 0.0 N [facility] Basophils/100 WBC (Bld) 0.5 % 0.2 - 2.0 % [facility] Eosinophils/100 WBC (Bld) 3.9 % 0.9 - 7.0 % [facility] Erythrocyte distribution width (RBC) [Ratio] 12.7 % 11.0 - 15.0 % [facility] Hematocrit (Bld) [Volume fraction] 42.9 % 36.0 - 48.0 % [facility] Hemoglobin (Bld) [Mass/Vol] 14.2 g/dL 12.0 - 16.0 g/dL [facility] IMMATURE GRANULOCYTES ABS AUTO 0.[address] [facility] Immature granulocytes/100 WBC (Bld) 0.2 % 0.0 - 0.5 % [facility] Interpretation and review of laboratory results Abnormal [facility] LYMPHOCYTES ABSOLUTE AUTO 1.[address] [facility] Lymphocytes/100 WBC (Bld) 38.3 % 20 .5 - 60.0 % [facility] MCH (RBC) [Entitic mass] 29.5 pg 26. 7 - 34.[address] [facility] MCHC (RBC) [Mass/Vol] 33.1 g/dL 29.9 - 35.2 g/dL [facility] MCV (RBC) [Entitic vol] 89.0 fL 81.0 - 99.[address] [facility] MONOCYTES ABSOLUTE AUTO 0.2 Low N [facility] Monocytes/100 WBC (Bld) 4.4 % 1.7 - 12.0 % [facility] NEUTROPHILS ABSOLUTE AUTO 2.[address] [facility] Neutrophils/100 WBC (Bld) 52.7 % 43 .0 - 75.0 % [facility] Platelet mean volume (Bld) [Entitic vol] 11.1 fL 9.5 - 13.[address] [facility] EO # 0.[address] [facility] PLT 209 [facility] RBC 4.82 [facility] WBC 4.[address] [facility] No Panel InformationOrdered By: Livier Howe on 04-14-2024 Quick Strep (POC) [facility] CBC AND AUTO DIFFon 11-12-19 24 ABSOLUTE BASOPHIL 0.0 X10E9/L Normal 0.0-0.2 [facility] Comment on above: Performed By: #### 2 0438-8 #### [facility] ([id number]) [address], [address] [place] [address] ABSOLUTE NEUTROPHIL 7.1 X10E9/L High 1.5-6.6 [facility] Comment on above: Performed By: #### 2 0438-8 #### [facility] ([id number]) [address], [address] [place] [address] Basophils/100 WBC (Bld) 0.1 % Normal P [facility] Comment on above: Performed By: #### 2 0438-8 #### [facility] ([id number]) [address], [address] [place] [address] Eosinophils (Bld) [#/Vol] 0.1 10*3/uL Normal 0.0-0.4 [facility] Comment on above: Performed By: #### 2 0438-8 #### [facility] ([id number]) [address], [address] [place] [address] Eosinophils/100 WBC (Bld) 0.6 % Normal [facility] Comment on above: Performed By: #### 2 0438-8 #### [facility] ([id number]) [address], [address] [place] [address] Erythrocyte distribution width (RBC) [Ratio] 15.5 % High 11.5-15.0 [facility] Comment on above: Performed By: #### 2 0438-8 #### [facility] ([id number]) [address], [address] [place] [address] Hematocrit (Bld) [Volume fraction] 31.2 % Low 35-47 [facility] Comment on above: Performed By: #### 2 0438-8 #### [facility] ([id number]) [address], [address] [place] [address] Hemoglobin (Bld) [Mass/Vol] 10.9 g/dL Low 11.7-15. 5 [facility] Comment on above: Performed By: #### 2 0438-8 #### [facility] ([id number]) [address], [address] [place] [address] Lymphocytes (Bld) [#/Vol] 1.7 10*3/uL Normal 1.0-3.5 [facility] Comment on above: Performed By: #### 2 0438-8 #### [facility] ([id number]) [address], [address] [place] [address] Lymphocytes/100 WBC (Bld) 18.3 % Normal [facility] Comment on above: Performed By: #### 2 0438-8 #### [facility] ([id number]) [address], [address] [place] [address] MCH (RBC) [Entitic mass] 31.0 pg Normal 27-34 [facility] Comment on above: Performed By: #### 2 0438-8 #### [facility] ([id number]) [address], [address] [place] [address] MCHC (RBC) [Mass/Vol] 35.0 g/dL Normal 32-36 [facility] Comment on above: Performed By: #### 2 0438-8 #### [facility] ([id number]) [address], [address] [place] [address] MCV (RBC) [Entitic vol] 89 fL Normal 80-100 P [facility] Comment on above: Performed By: #### 2 0438-8 #### [facility] ([id number]) [address], [address] [place] [address] Monocytes (Bld) [#/Vol] 0.6 10*3/uL Normal 0-0.9 [facility] Comment on above: Performed By: #### 2 0438-8 #### [facility] ([id number]) [address], [address] [place] [address] Monocytes/100 WBC (Bld) 6.8 % Normal P [facility] Comment on above: Performed By: #### 2 0438-8 #### [facility] ([id number]) [address], [address] [place] [address] Neutrophils/100 WBC (Bld) 74.2 % Normal [facility] Comment on above: Performed By: #### 2 0438-8 #### [facility] ([id number]) [address], [address] [place] [address] Platelet mean volume (Bld) [Entitic vol] 8.9 fL Normal 7-12 [facility] Comment on above: Performed By: #### 2 0438-8 #### [facility] ([id number]) [address], [address] [place] [address] Platelets (Bld) [#/Vol] 138 10*3/uL Low 150-450 [facility] Comment on above: Performed By: #### 2 0438-8 #### [facility] ([id number]) [address], [address] [place] [address] RBC COUNT 3.52 X10E12/L Low 3.80-5.20 [facility] Comment on above: Performed By: #### 2 0438-8 #### [facility] ([id number]) [address] [place] [address] WBC (Bld) [#/Vol] 9.5 10*3/uL Normal 4.0-11.0 [facility] Comment on above: Performed By: #### 2 0438-8 #### [facility] ([id number]) [address], [address] [place] [address] CBC AND AUTO DIFFon 11-11-19 24 ABSOLUTE BASOPHIL 0.0 X10E9/L Normal 0.0-0.2 [facility] Comment on above: Performed By: #### 2 0438-8 #### [facility] ([id number]) [address], [address] [place] [address] ABSOLUTE NEUTROPHIL 3.6 X10E9/L Normal 1.5-6.6 [facility] Comment on above: Performed By: #### 2 0438-8 #### [facility] ([id number]) [address], [address] [place] [address] Basophils/100 WBC (Bld) 0.4 % Normal P [facility] Comment on above: Performed By: #### 2 0438-8 #### [facility] ([id number]) [address], [address] [place] [address] Eosinophils (Bld) [#/Vol] 0.1 10*3/uL Normal 0.0-0.4 [facility] Comment on above: Performed By: #### 2 0438-8 #### [facility] ([id number]) [address], [address] [place] [address] Eosinophils/100 WBC (Bld) 1.5 % Normal [facility] Comment on above: Performed By: #### 2 0438-8 #### [facility] ([id number]) [address], [address] [place] [address] Erythrocyte distribution width (RBC) [Ratio] 15.9 % High 11.5-15.0 [facility] Comment on above: Performed By: #### 2 0438-8 #### [facility] ([id number]) [address], [address] [place] [address] Hematocrit (Bld) [Volume fraction] 33.8 % Low 35-47 [facility] Comment on above: Performed By: #### 2 0438-8 #### [facility] ([id number]) [address] [place] [address] Hemoglobin (Bld) [Mass/Vol] 11.6 g/dL Low 11.7-15. 5 [facility] Comment on above: Performed By: #### 2 0438-8 #### [facility] ([id number]) [address] [place] [address] Lymphocytes (Bld) [#/Vol] 1.7 10*3/uL Normal 1.0-3.5 [facility] Comment on above: Performed By: #### 2 0438-8 #### [facility] ([id number]) [address] [place] [address] Lymphocytes/100 WBC (Bld) 29.4 % Normal [facility] Comment on above: Performed By: #### 2 0438-8 #### [facility] ([id number]) [address] [place] [address] MCH (RBC) [Entitic mass] 30.7 pg Normal 27-34 [facility] Comment on above: Performed By: #### 2 0438-8 #### [facility] ([id number]) [address], [address] [place] [address] MCHC (RBC) [Mass/Vol] 34.2 g/dL Normal 32-36 [facility] Comment on above: Performed By: #### 2 0438-8 #### [facility] ([id number]) [address], [address] [place] [place] [address] MCV (RBC) [Entitic vol] 90 fL Normal 80-100 [facility] Comment on above: Performed By: #### 2 0438-8 #### [facility] ([id number]) [address] [place] [address] Monocytes (Bld) [#/Vol] 0.4 10*3/uL Normal 0-0.9 [facility] Comment on above: Performed By: #### 2 0438-8 #### [facility] ([id number]) [address], [address] [place] [address] Monocytes/100 WBC (Bld) 6.1 % Normal [facility] Comment on above: Performed By: #### 2 0438-8 #### [facility] ([id number]) [address], [address] [place] [address] Neutrophils/100 WBC (Bld) 62.6 % Normal [facility] Comment on above: Performed By: #### 2 0438-8 #### [facility] ([id number]) [address], [address] [place] [address] Platelet mean volume (Bld) [Entitic vol] 8.9 fL Normal 7-12 [facility] Comment on above: Performed By: #### 2 0438-8 #### [facility] ([id number]) [address], [address] [place] [address] Platelets (Bld) [#/Vol] 132 10*3/uL Low 150-450 [facility] Comment on above: Performed By: #### 2 0438-8 #### [facility] ([id number]) [address], [address] [place] [address] RBC COUNT 3.78 X10E12/L Low 3.80-5.20 [facility] Comment on above: Performed By: #### 2 0438-8 #### [facility] ([id number]) [address], [address] [place] [address] WBC (Bld) [#/Vol] 5.8 10*3/uL Normal 4.0-11.0 [facility] Comment on above: Performed By: #### 2 0438-8 #### [facility] ([id number]) [address], [address] [place] [address] Surgical Pathologyon 024 Surgical Pathology Normal [facility] Comment on above: Result Comment: [facility] [address] [place] [address] Surgical Pathology Consultation Patient Name:JOSELIN VALENZUELA:2005 (Age: 18)Gender:FTaken:4Reported:4Physician(s):Lydia Hook M.D.Copy To:Deirdre Zuñiga [facility] Centeression #:[id number]. Rec. #:[id number]: #[id number] Final Pathologic Diagnosis Placenta: 378-gram third trimester placenta with three-vessel umbilical cord. Report Electronically Signed [facility]11/25/2023durga Lazo MD Interpretation performed at [facility], [address] [place] [address], License number: [id number]. Clinical History Vasa previa, IUP vasa previa. [...] Rolled membrane, two sections of cord B-D [employer] sections of placenta (4,ss,J40-5840) . /11/19/2023GP Specimen(s) Received Placenta Fee Codes(s): 1; 71827 STREP B SCREEN CULTUREon S. agalactiae Org specific cx Ql (Vag+Rectum) CULTURE RESULTS NEGATIVE FOR GROUP B STREPTOCOCCUS BY NUCLEIC ACID AMPLIFICATION Normal [facility] Comment on above: Performed By: #### 2 0438-8 #### [facility] ([id number]) [address] [place] [address], [address] [place] [address] CBC AND AUTO DIFFon 11-06-19 24 ABSOLUTE BASOPHIL 0.0 X10E9/L Normal 0.0-0.2 [facility] Comment on above: Performed By: #### 2 0438-8 #### [facility] ([id number]) [address] [place] [address], [address] [place] [address] ABSOLUTE NEUTROPHIL 3.6 X10E9/L Normal 1.5-6.6 [facility] Comment on above: Performed By: #### 2 0438-8 #### [facility] ([id number]) [address], [address] [place] [address] Basophils/100 WBC (Bld) 0.1 % Normal [facility] Comment on above: Performed By: #### 2 0438-8 #### [facility] ([id number]) [address], [address] [place] [address] Eosinophils (Bld) [#/Vol] 0.1 10*3/uL Normal 0.0-0.4 [facility] Comment on above: Performed By: #### 2 0438-8 #### [facility] ([id number]) [address], [address] [place] [address] Eosinophils/100 WBC (Bld) 1.0 % Normal [facility] Comment on above: Performed By: #### 2 0438-8 #### [facility] ([id number]) [address], [address] [place] [address] Erythrocyte distribution width (RBC) [Ratio] 15.7 % High 11.5-15.0 [facility] Comment on above: Performed By: #### 2 0438-8 #### [facility] ([id number]) [address], [address] [place] [address] Hematocrit (Bld) [Volume fraction] 34.0 % Low 35-47 [facility] Comment on above: Performed By: #### 2 0438-8 #### [facility] ([id number]) [address], [address] [place] [address] Hemoglobin (Bld) [Mass/Vol] 11.6 g/dL Low 11.7-15. 5 [facility] Comment on above: Performed By: #### 2 0438-8 #### [facility] ([id number]) [address], [address] [place] [address] Lymphocytes (Bld) [#/Vol] 1.8 10*3/uL Normal 1.0-3.5 [facility] Comment on above: Performed By: #### 2 0438-8 #### [facility] ([id number]) [address], [address] [place] [address] Lymphocytes/100 WBC (Bld) 30.8 % Normal [facility] Comment on above: Performed By: #### 2 0438-8 #### [facility] ([id number]) [address], [address] [place] [address] MCH (RBC) [Entitic mass] 30.5 pg Normal 27-34 [facility] Comment on above: Performed By: #### 2 0438-8 #### [facility] ([id number]) [address], [address] [place] [address] MCHC (RBC) [Mass/Vol] 34.0 g/dL Normal 32-36 [facility] Comment on above: Performed By: #### 2 0438-8 #### [facility] ([id number]) [address], [address] [place] [address] MCV (RBC) [Entitic vol] 90 fL Normal 80-100 [facility] Comment on above: Performed By: #### 2 0438-8 #### [facility] ([id number]) [address], [address] [place] [address] Monocytes (Bld) [#/Vol] 0.4 10*3/uL Normal 0-0.9 [facility] Comment on above: Performed By: #### 2 0438-8 #### [facility] ([id number]) [address], [address] [place] [address] Monocytes/100 WBC (Bld) 6.2 % Normal [facility] Comment on above: Performed By: #### 2 0438-8 #### [facility] ([id number]) [address], [address] [place] [address] Neutrophils/100 WBC (Bld) 61.9 % Normal [facility] Comment on above: Performed By: #### 2 0438-8 #### [facility] ([id number]) [address], [address] [place] [address] Platelet mean volume (Bld) [Entitic vol] 8.6 fL Normal 7-12 [facility] Comment on above: Performed By: #### 2 0438-8 #### [facility] ([id number]) [address], [address] [place] [address] Platelets (Bld) [#/Vol] 140 10*3/uL Low 150-450 [facility] Comment on above: Performed By: #### 2 0438-8 #### [facility] ([id number]) [address], [address] [place] [address] RBC COUNT 3.79 X10E12/L Low 3.80-5.20 [facility] Comment on above: Performed By: #### 2 0438-8 #### [facility] ([id number]) [address], [address] [place] [address] WBC (Bld) [#/Vol] 5.8 10*3/uL Normal 4.0-11.0 [facility] Comment on above: Performed By: #### 2 0438-8 #### [facility] ([id number]) [address], [address] [place] [address] COMPREHENSIVE METABOLIC PANE Alex 11-06-2023 Albumin [Mass/Vol] 3.2 g/dL Normal 3.2-5.3 [facility] Comment on above: Performed By: #### 2 0438-8 #### [facility] ([id number]) [address], [address] [place] [address] ALP [Catalytic activity/Vol] 93 U/L Normal 39-130 [facility] Comment on above: Performed By: #### 2 0438-8 #### [facility] ([id number]) [address], [address] [place] [address] ALT [Catalytic activity/Vol] 10 U/L Normal 0-31 [facility] Comment on above: Performed By: #### 2 0438-8 #### [facility] ([id number]) [address], [address] [place] [address] Anion gap [Moles/Vol] 10 mmol/L Normal 5-15 [facility] Comment on above: Performed By: #### 2 0438-8 #### [facility] ([id number]) [address], [address] [place] [address] AST [Catalytic activity/Vol] 10 U/L Normal 0-41 [facility] Comment on above: Performed By: #### 2 0438-8 #### [facility] ([id number]) [address], [address] [place] [address] Bilirubin [Mass/Vol] 0.4 mg/dL Normal 0.3-1.2 [facility] Comment on above: Performed By: #### 2 0438-8 #### [facility] ([id number]) [address], [address] [place] [address] Calcium [Mass/Vol] 8.5 mg/dL Normal 8.5-10.5 [facility] Comment on above: Performed By: #### 2 0438-8 #### [facility] ([id number]) [address], [address] [place] [address] Chloride [Moles/Vol] 107 mmol/L Normal 98-109 [facility] Comment on above: Performed By: #### 2 0438-8 #### [facility] ([id number]) [address], [address] [place] [address] CO2 [Moles/Vol] 23 mmol/L Normal 22-32 [facility] Comment on above: Performed By: #### 2 0438-8 #### [facility] ([id number]) [address], [address] [place] [address] Creatinine [Mass/Vol] 0.50 mg/dL Normal 0.40-1.00 [facility] Comment on above: Result Comment: METH OD TRACEABLE TO IDMS STANDARD Performed By: #### 2 0438-8 #### [facility] ([id number]) [address], [address] [place] [address] eGFR (CKD-EPI) NON-RACE DEPENDENT >90 Normal >59 [facility] Comment on above: Result Comment: Reported eGFR is based on the CKD-EPI 1 equation that does not use a race coefficient. Performed By: #### 2 0438-8 #### [facility] ([id number]) [address], [address] [place] [address] Glucose [Mass/Vol] 79 mg/dL Normal 65-99 [facility] Comment on above: Performed By: #### 2 0438-8 #### [facility] ([id number]) [address] [address] [place] [address] Potassium [Moles/Vol] 3.9 mmol/L Normal 3.5-5.0 [facility] Comment on above: Performed By: #### 2 0438-8 #### [facility] ([id number]) [address], [address] [place] [address] Protein [Mass/Vol] 5.4 g/dL Low 6.0-8.0 [facility] Comment on above: Performed By: #### 2 0438-8 #### [facility] ([id number]) [address], [address] [place] [address] Sodium [Moles/Vol] 140 mmol/L Normal 134-146 [facility] Comment on above: Performed By: #### 2 0438-8 #### [facility] ([id number]) [address], [address] [place] [address] Urea nitrogen [Mass/Vol] 4 mg/dL Low 5-23 [facility] Comment on above: Performed By: #### 2 0438-8 #### [facility] ([id number]) [address], [address] [place] [address] URINALYSISon 10-18-2023 Bilirubin Ql (U) Negative Normal NEG [facility] Comment on above: Performed By: #### 2 0438-8 #### [facility] ([id number]) [address], [address] [place] [address] BLOOD/HGB Trace Abnormal NEG [facility] Comment on above: Performed By: #### 2 0438-8 #### [facility] ([id number]) [address], [address] [place] [address] Color (U) YELLOW Normal YELLOW [facility] Comment on above: Performed By: #### 2 0438-8 #### [facility] ([id number]) [address], [address] [place] [address] Glucose Ql (U) Negative Normal NEG [facility] Comment on above: Performed By: #### 2 0438-8 #### [facility] ([id number]) [address], [address] [place] [address] Ketones Ql (U) 100 mg/dL Abnormal NEG [facility] Comment on above: Performed By: #### 2 0438-8 #### [facility] ([id number]) [address], [address] [place] [address] Leukocyte esterase Test strip Ql (U) Negative Normal NEG [facility] Comment on above: Performed By: #### 2 0438-8 #### [facility] ([id number]) [address], [address] [place] [address] MUCOUS PRESENT Abnormal NONE [facility] Comment on above: Performed By: #### 2 0438-8 #### [facility] ([id number]) [address], [address] [place] [address] Nitrite Ql (U) Negative Normal NEG [facility] Comment on above: Performed By: #### 2 0438-8 #### [facility] ([id number]) [address], [address] [place] [address] pH (U) 5.0 [pH] Normal 5.0-8.5 [facility] Comment on above: Performed By: #### 2 0438-8 #### [facility] ([id number]) [address], [address] [place] [address] Protein Ql (U) Negative Normal NEG [facility] Comment on above: Performed By: #### 2 0438-8 #### [facility] ([id number]) [address], [address] [place] [address] R.B.CELLS 2 /hpf Normal 0-5 [facility] Comment on above: Performed By: #### 2 0438-8 #### [facility] ([id number]) [address], [address] [place] [address] Specific gravity (U) [Rel density] 1.017 Normal 1.003-1.035 [facility] Comment on above: Performed By: #### 2 0438-8 #### [facility] ([id number]) [address] [address] SQUAMOUS EPITHELIUM 1 /hpf Normal 0-5 [facility] Comment on above: Performed By: #### 2 0438-8 #### [facility] ([id number]) [address] [address] TURBIDITY CLEAR Normal CLEAR [facility] Comment on above: Performed By: #### 2 0438-8 #### [facility] ([id number]) [address] [address] Urinalysis dipstick W Reflex Microscopic panel (U) URINE RECEIVED WITHOUT PRESERVATIVE-DELAY S IN TRANSPORT MAY AFFECT RESULTS.INTERPRET WITH CAUTION AND CLINICAL CORRELATION IS RECOMMENDED. Normal [facility] Comment on above: Performed By: #### 2 0438-8 #### [facility] ([id number]) [address] [address] Urobilinogen (U) [Mass/Vol] mg/dL Normal <1.1 [facility] Comment on above: Performed By: #### 2 0438-8 #### [facility] ([id number]) [address] [address] W.B.CELLS <1 Normal 0-5 [facility] Comment on above: Performed By: #### 2 0438-8 #### [facility] ([id number]) [address] [address] CBC AND AUTO DIFFon 10-14-19 24 ABSOLUTE BASOPHIL 0.0 X10E9/L Normal 0.0-0.2 [facility] Comment on above: Performed By: #### C BCA, CMP #### [facility] ([id number]) [address] [address] ABSOLUTE NEUTROPHIL 4.5 X10E9/L Normal 1.5-6.6 [facility] Comment on above: Performed By: #### C BCA, CMP #### [facility] ([id number]) [address], [address] [place] [address] Basophils/100 WBC (Bld) 0.2 % Normal [facility] Comment on above: Performed By: #### C BCA, CMP #### [facility] ([id number]) [address], [address] [place] [address] Eosinophils (Bld) [#/Vol] 0.1 10*3/uL Normal 0.0-0.4 [facility] Comment on above: Performed By: #### C MED, CMP #### [facility] ([id number]) [address], [address] [place] [address] Eosinophils/100 WBC (Bld) 2.0 % Normal [facility] Comment on above: Performed By: #### C MED, CMP #### [facility] ([id number]) [address], [address] [place] [address] Erythrocyte distribution width (RBC) [Ratio] 16.7 % High 11.5-15.0 [facility] Comment on above: Performed By: #### C MED, CMP #### [facility] ([id number]) [address], [address] [place] [address] Hematocrit (Bld) [Volume fraction] 35.4 % Normal 35-47 [facility] Comment on above: Performed By: #### C MED, CMP #### [facility] ([id number]) [address], [address] [place] [address] Hemoglobin (Bld) [Mass/Vol] 12.0 g/dL Normal 11.7-15. 5 [facility] Comment on above: Performed By: #### C BCA, CMP #### [facility] ([id number]) [address], [address] [place] [address] Lymphocytes (Bld) [#/Vol] 1.5 10*3/uL Normal 1.0-3.5 [facility] Comment on above: Performed By: #### C BCA, CMP #### [facility] ([id number]) [address], [address] [place] [address] Lymphocytes/100 WBC (Bld) 23.7 % Normal [facility] Comment on above: Performed By: #### C BCA, CMP #### [facility] ([id number]) [address], [address] [place] [address] MCH (RBC) [Entitic mass] 30.7 pg Normal 27-34 [facility] Comment on above: Performed By: #### C BCA, CMP #### [facility] ([id number]) [address], [address] [place] [address] MCHC (RBC) [Mass/Vol] 34.1 g/dL Normal 32-36 [facility] Comment on above: Performed By: #### C BCA, CMP #### [facility] ([id number]) [address], [address] [place] [address] MCV (RBC) [Entitic vol] 90 fL Normal 80-100 [facility] Comment on above: Performed By: #### C BCA, CMP #### [facility] ([id number]) [address], [address] [place] [address] Monocytes (Bld) [#/Vol] 0.3 10*3/uL Normal 0-0.9 [facility] Comment on above: Performed By: #### C BCA, CMP #### [facility] ([id number]) [address], [address] [place] [address] Monocytes/100 WBC (Bld) 5.2 % Normal P [facility] Comment on above: Performed By: #### C BCA, CMP #### [facility] ([id number]) [address] [place] [address] Neutrophils/100 WBC (Bld) 68.9 % Normal [facility] Comment on above: Performed By: #### C MED, CMP #### [facility] ([id number]) [address] [facility] [address] [place] [address] Platelet mean volume (Bld) [Entitic vol] 8.7 fL Normal 7-12 [facility] Comment on above: Performed By: #### C MED, CMP #### [facility] ([id number]) [address] [address] Platelets (Bld) [#/Vol] 158 10*3/uL Normal 150-450 [facility] Comment on above: Performed By: #### C MED, CMP #### [facility] ([id number]) [address] [address] [place] [address] RBC COUNT 3.93 X10E12/L Normal 3.80-5.20 [facility] Comment on above: Performed By: #### C MED, CMP #### [facility] ([id number]) [address] [address] WBC (Bld) [#/Vol] 6.5 10*3/uL Normal 4.0-11.0 [facility] Comment on above: Performed By: #### C MED, CMP #### [facility] ([id number]) [address] [address] COMPREHENSIVE METABOLIC PANE Alex 10-14-2023 Albumin [Mass/Vol] 3.4 g/dL Normal 3.2-5.3 [facility] Comment on above: Performed By: #### C MED, CMP #### [facility] ([id number]) [address] [address] [place] [address] ALP [Catalytic activity/Vol] 75 U/L Normal 39-130 [facility] Comment on above: Performed By: #### C BCA, CMP #### [facility] ([id number]) [address] [place] [address] ALT [Catalytic activity/Vol] 13 U/L Normal 0-31 [facility] Comment on above: Performed By: #### C BCA, CMP #### [facility] ([id number]) [address] [place] [address] Anion gap [Moles/Vol] 10 mmol/L Normal 5-15 [facility] Comment on above: Performed By: #### C BCA, CMP #### [facility] ([id number]) [address] [place] [address] AST [Catalytic activity/Vol] 18 U/L Normal 0-41 [facility] Comment on above: Performed By: #### C BCA, CMP #### [facility] ([id number]) [address] [place] [address] Bilirubin [Mass/Vol] 0.4 mg/dL Normal 0.3-1.2 [facility] Comment on above: Performed By: #### C BCA, CMP #### [facility] ([id number]) [address] [place] [address] Calcium [Mass/Vol] 9.0 mg/dL Normal 8.5-10.5 [facility] Comment on above: Performed By: #### C BCA, CMP #### [facility] ([id number]) [address] [place] [address] Chloride [Moles/Vol] 103 mmol/L Normal 98-109 [facility] Comment on above: Performed By: #### C BCA, CMP #### [facility] ([id number]) [address] [place] [address] CO2 [Moles/Vol] 22 mmol/L Normal 22-32 [facility] Comment on above: Performed By: #### C BCA, CMP #### [facility] ([id number]) [address] [address] Creatinine [Mass/Vol] 0.51 mg/dL Normal 0.40-1.00 [facility] Comment on above: Result Comment: METH OD TRACEABLE TO IDMS STANDARD Performed By: #### C BCA, CMP #### [facility] ([id number]) [address] [address] eGFR (CKD-EPI) NON-RACE DEPENDENT >90 Normal >59 [facility] Comment on above: Result Comment: Reported eGFR is based on the CKD-EPI 2020 equation that does not use a race coefficient. Performed By: #### C BCA, CMP #### [facility] ([id number]) [address] [address] Glucose [Mass/Vol] 100 mg/dL High 65-99 [facility] Comment on above: Performed By: #### C BCA, CMP #### [facility] ([id number]) [address] [address] Potassium [Moles/Vol] 3.4 mmol/L Low 3.5-5.0 [facility] Comment on above: Performed By: #### C BCA, CMP #### [facility] ([id number]) [address] [address] Protein [Mass/Vol] 6.2 g/dL Normal 6.0-8.0 [facility] Comment on above: Performed By: #### C BCA, CMP #### [facility] ([id number]) [address] [address] Sodium [Moles/Vol] 135 mmol/L Normal 134-146 [facility] Comment on above: Performed By: #### C BCA, CMP #### [facility] ([id number]) [address] [place] [address] Urea nitrogen [Mass/Vol] 4 mg/dL Low 5-23 [facility] Comment on above: Performed By: #### C BCA, CMP #### [facility] ([id number]) [address], [address] [place] [address] CBC AND AUTO DIFFon 10-08-19 24 ABSOLUTE BASOPHIL 0.0 X10E9/L Normal 0.0-0.2 [facility] Comment on above: Performed By: #### C BCA, CMP #### [facility] ([id number]) [address], [address] [place] [address] ABSOLUTE NEUTROPHIL 4.9 X10E9/L Normal 1.5-6.6 [facility] Comment on above: Performed By: #### C BCA, CMP #### [facility] ([id number]) [address] [place] [address] Basophils/100 WBC (Bld) 0.2 % Normal P [facility] Comment on above: Performed By: #### C BCA, CMP #### [facility] ([id number]) [address] [place] [address] Eosinophils (Bld) [#/Vol] 0.1 10*3/uL Normal 0.0-0.4 [facility] Comment on above: Performed By: #### C BCA, CMP #### [facility] ([id number]) [address] [place] [address] Eosinophils/100 WBC (Bld) 1.3 % Normal [facility] Comment on above: Performed By: #### C BCA, CMP #### [facility] ([id number]) [address], [address] [place] [address] Erythrocyte distribution width (RBC) [Ratio] 16.5 % High 11.5-15.0 [facility] Comment on above: Performed By: #### C BCA, CMP #### [facility] ([id number]) [address] [place] [address] Hematocrit (Bld) [Volume fraction] 35.8 % Normal 35-47 [facility] Comment on above: Performed By: #### C BCA, CMP #### [facility] ([id number]) [address] [place] [address] Hemoglobin (Bld) [Mass/Vol] 12.1 g/dL Normal 11.7-15. 5 [facility] Comment on above: Performed By: #### C BCA, CMP #### [facility] ([id number]) [address] [place] [address] Lymphocytes (Bld) [#/Vol] 1.3 10*3/uL Normal 1.0-3.5 [facility] Comment on above: Performed By: #### C BCA, CMP #### [facility] ([id number]) [address], [address] [place] [address] Lymphocytes/100 WBC (Bld) 18.8 % Normal [facility] Comment on above: Performed By: #### C BCA, CMP #### [facility] ([id number]) [address] [place] [address] MCH (RBC) [Entitic mass] 30.3 pg Normal 27-34 [facility] Comment on above: Performed By: #### C BCA, CMP #### [facility] ([id number]) [address] [place] [address] MCHC (RBC) [Mass/Vol] 33.7 g/dL Normal 32-36 [facility] Comment on above: Performed By: #### C BCA, CMP #### [facility] ([id number]) [address], [address] [place] [address] MCV (RBC) [Entitic vol] 90 fL Normal 80-100 [facility] Comment on above: Performed By: #### C BCA, CMP #### [facility] ([id number]) [address], [address] [place] [address] Monocytes (Bld) [#/Vol] 0.4 10*3/uL Normal 0-0.9 [facility] Comment on above: Performed By: #### C BCA, CMP #### [facility] ([id number]) [address], [address] [place] [address] Monocytes/100 WBC (Bld) 5.3 % Normal [facility] Comment on above: Performed By: #### C MED, CMP #### [facility] ([id number]) [address], [address] [place] [address] Neutrophils/100 WBC (Bld) 74.4 % Normal [facility] Comment on above: Performed By: #### C BCA, CMP #### [facility] ([id number]) [address], [address] [place] [address] Platelet mean volume (Bld) [Entitic vol] 8.6 fL Normal 7-12 [facility] Comment on above: Performed By: #### C BCA, CMP #### [facility] ([id number]) [address], [address] [place] [address] Platelets (Bld) [#/Vol] 161 10*3/uL Normal 150-450 [facility] Comment on above: Performed By: #### C BCA, CMP #### [facility] ([id number]) [address], [address] [place] [address] RBC COUNT 3.98 X10E12/L Normal 3.80-5.20 [facility] Comment on above: Performed By: #### C BCA, CMP #### [facility] ([id number]) [address], [address] [place] [address] WBC (Bld) [#/Vol] 6.7 10*3/uL Normal 4.0-11.0 [facility] Comment on above: Performed By: #### C BCA, CMP #### [facility] ([id number]) [address], [address] [place] [address] COMPREHENSIVE METABOLIC PANE Alex 10-08-2023 Albumin [Mass/Vol] 3.7 g/dL Normal 3.2-5.3 [facility] Comment on above: Performed By: #### C BCA, CMP #### [facility] ([id number]) [address], [address] [place] [address] ALP [Catalytic activity/Vol] 79 U/L Normal 39-130 [facility] Comment on above: Performed By: #### C BCA, CMP #### [facility] ([id number]) [address], [address] [place] [address] ALT [Catalytic activity/Vol] 16 U/L Normal 0-31 [facility] Comment on above: Performed By: #### C BCA, CMP #### [facility] ([id number]) [address], [address] [place] [address] Anion gap [Moles/Vol] 9 mmol/L Normal 5-15 [facility] Comment on above: Performed By: #### C BCA, CMP #### [facility] ([id number]) [address], [address] [place] [address] AST [Catalytic activity/Vol] 15 U/L Normal 0-41 [facility] Comment on above: Performed By: #### C BCA, CMP #### [facility] ([id number]) [address], [address] [place] [address] Bilirubin [Mass/Vol] 0.4 mg/dL Normal 0.3-1.2 [facility] Comment on above: Performed By: #### C BCA, CMP #### [facility] ([id number]) [address], [address] [place] [address] Calcium [Mass/Vol] 8.4 mg/dL Low 8.5-10.5 [facility] Comment on above: Performed By: #### C BCA, CMP #### [facility] ([id number]) [address], [address] [place] [address] Chloride [Moles/Vol] 104 mmol/L Normal 98-109 [facility] Comment on above: Performed By: #### C BCA, CMP #### [facility] ([id number]) [address], [address] [place] [address] CO2 [Moles/Vol] 23 mmol/L Normal 22-32 [facility] Comment on above: Performed By: #### C BCA, CMP #### [facility] ([id number]) [address] [place] [address] Creatinine [Mass/Vol] 0.44 mg/dL Normal 0.40-1.00 [facility] Comment on above: Result Comment: METH OD TRACEABLE TO IDMS STANDARD Performed By: #### C BCA, CMP #### [facility] ([id number]) [address], [address] [place] [address] eGFR (CKD-EPI) NON-RACE DEPENDENT >90 Normal >59 [facility] Comment on above: Result Comment: Reported eGFR is based on the CKD-EPI 2020 equation that does not use a race coefficient. Performed By: #### C BCA, CMP #### [facility] ([id number]) [address], [address] [place] [address] Glucose [Mass/Vol] 103 mg/dL High 65-99 [facility] Comment on above: Performed By: #### C BCA, CMP #### [facility] ([id number]) [address], [address] [place] [address] Potassium [Moles/Vol] 3.7 mmol/L Normal 3.5-5.0 [facility] Comment on above: Performed By: #### C BCA, CMP #### [facility] ([id number]) [address], [address] [place] [address] Protein [Mass/Vol] 6.3 g/dL Normal 6.0-8.0 [facility] Comment on above: Performed By: #### C BCA, CMP #### [facility] ([id number]) [address], [address] [place] [address] Sodium [Moles/Vol] 136 mmol/L Normal 134-146 [facility] Comment on above: Performed By: #### C BCA, CMP #### [facility] ([id number]) [address], [address] [place] [address] Urea nitrogen [Mass/Vol] 5 mg/dL Normal 5-23 [facility] Comment on above: Performed By: #### C BCA, CMP #### [facility] ([id number]) [address], [address] [place] [address] RESP PATHOGENS/[id number] 10-08-2023 Respiratory pathogens DNA and RNA panel [...] 2 Not detected (qualifier value) NOTE [employer] Respiratory Panel 2.1 (RP2.1) is a multiplexed [...] patient with possible respiratory tract infection. Normal [facility] Comment on above: Performed By: #### 8 2159-5 #### [facility] ([id number]) [address] [place] [address] CBC AND AUTO DIFFon 12-26-20 23 ABSOLUTE BASOPHIL 0.0 X10E9/L Normal 0.0-0.2 [facility] Comment on above: Performed By: #### Silvano JOVEL, 63045-2, 91501-0 #### [facility] ([id number]) [address], [address] [place] [address] ABSOLUTE NEUTROPHIL 4.1 X10E9/L Normal 1.5-6.6 [facility] Comment on above: Performed By: #### Silvano JOVEL, 95415-7, 10448-9 #### [facility] ([id number]) [address] [place] [address] Basophils/100 WBC (Bld) 0.5 % Normal [facility] Comment on above: Performed By: #### Silvano JOVEL, 87027-5, 57966-9 #### [facility] ([id number]) [address] [place] [address] Eosinophils (Bld) [#/Vol] 0.1 10*3/uL Normal 0.0-0.4 [facility] Comment on above: Performed By: #### Silvano JOVEL, 27981-9, 50209-4 #### [facility] ([id number]) [address] [place] [address] Eosinophils/100 WBC (Bld) 1.6 % Normal [facility] Comment on above: Performed By: #### Silvano JOVEL, 82873-2, 59679-8 #### [facility] ([id number]) [address], [address] [place] [address] Erythrocyte distribution width (RBC) [Ratio] 15.5 % High 11.5-15.0 [facility] Comment on above: Performed By: #### Silvano JOVEL, 52958-4, 93229-2 #### [facility] ([id number]) [address] [place] [address] Hematocrit (Bld) [Volume fraction] 32.8 % Low 35-47 [facility] Comment on above: Performed By: #### Silvano JOVEL, 94956-5, 83235-1 #### [facility] ([id number]) [address], [facility] [address] [place] [address] Hemoglobin (Bld) [Mass/Vol] 11.4 g/dL Low 11.7-15. 5 [facility] Comment on above: Performed By: #### Silvano JOVEL, 86661-2, 79454-9 #### [facility] ([id number]) [address] [facility] [facility] [place] [address] Lymphocytes (Bld) [#/Vol] 1.7 10*3/uL Normal 1.0-3.5 [facility] Comment on above: Performed By: #### Silvano JOVEL, 65025-0, 50216-0 #### [facility] ([id number]) [address], [facility] [address] [place] [address] Lymphocytes/100 WBC (Bld) 26.9 % Normal [facility] Comment on above: Performed By: #### Silvano JOVEL, 82220-3, 70589-4 #### [facility] ([id number]) [address], [facility] [address] [place] [address] MCH (RBC) [Entitic mass] 31.1 pg Normal 27-34 [facility] Comment on above: Performed By: #### Silvano JOVEL, 27638-6, 63071-0 #### [facility] ([id number]) [address], [facility] [address] [place] [address] MCHC (RBC) [Mass/Vol] 34.7 g/dL Normal 32-36 [facility] Comment on above: Performed By: #### Silvano JOVEL, 24997-7, 40556-6 #### [facility] ([id number]) [address], [facility] [address] [place] [address] MCV (RBC) [Entitic vol] 90 fL Normal 80-100 [facility] Comment on above: Performed By: #### Silvano JOVEL, 35189-9, 00505-7 #### [facility] ([id number]) [address] [place] [address] Monocytes (Bld) [#/Vol] 0.5 10*3/uL Normal 0-0.9 [facility] Comment on above: Performed By: #### Silvano JOVEL, 94168-1, 85664-2 #### [facility] ([id number]) [address], [facility] [address] [place] [address] Monocytes/100 WBC (Bld) 7.2 % Normal [facility] Comment on above: Performed By: #### Silvano JOVEL, 68259-2, 36577-4 #### [facility] ([id number]) [address] [place] [address] Neutrophils/100 WBC (Bld) 63.8 % Normal [facility] Comment on above: Performed By: #### Silvano JOVEL, 45365-6, 99778-1 #### [facility] ([id number]) [address] [place] [address] Platelet mean volume (Bld) [Entitic vol] 8.8 fL Normal 7-12 [facility] Comment on above: Performed By: #### Silvano JOVEL, 02066-2, 66903-7 #### [facility] ([id number]) [address] [place] [address] Platelets (Bld) [#/Vol] 178 10*3/uL Normal 150-450 [facility] Comment on above: Performed By: #### Silvano JOVEL, 51504-8, 42127-7 #### [facility] ([id number]) [address] [place] [address] RBC COUNT 3.66 X10E12/L Low 3.80-5.20 [facility] Comment on above: Performed By: #### Silvano JOVEL, 07357-1, 01276-5 #### [facility] ([id number]) [address] [place] [address], [address] [address] WBC (Bld) [#/Vol] 6.5 10*3/uL Normal 4.0-11.0 [facility] Comment on above: Performed By: #### Silvano JOVEL, 56802-3, 46113-0 #### [facility] ([id number]) [address] [place] [address], [address] [address] HIV 1+2 Ab+HIV1 p24 Ag IA Ql on 09-23-2023 HIV 1 and 2 Ab/Ag Screen Non-Reactive Normal NR[facility] Comment on above: Result Comment: This [...] or diagnoses. Performed By: #### Silvano JOVEL, 39193-5, 35774-0 #### [facility] ([id number]) [address] [place] [address], [address] [address] T. pallidum IgG+IgM IA Ql (S )on 09-23-2023 Syphilis Total <0.2 Normal 0.0-0.8 [facility] Comment on above: Result Comment: NON REACTIVE No serologic evidence of infection to Treponema pallidum (syphilis). Repeat testing may be considered in patients with suspected acute or primary syphilis in 2 to 4 weeks. Performed By: #### Silvano JOVEL, 40350-9, 66052-9 #### [facility] ([id number]) [address] [place] [address] Glucose 1 Hr post dose gluco se [Mass/Vol]on 09-21-2023 1ST HR GTT 105 mg/dL Low 120-170 [facility] Comment on above: Performed By: #### 2 0438-8 #### [facility] ([id number]) [address] [place] [address] CBC AND AUTO DIFFon 09-16-20 ABSOLUTE BASOPHIL 0.0 X10E9/L Normal 0.0-0.2 [facility] Comment on above: Performed By: #### C BCA #### [facility] ([id number]) [address] [place] [address] ABSOLUTE NEUTROPHIL 3.8 X10E9/L Normal 1.5-6.6 [facility] Comment on above: Performed By: #### C BCA #### [facility] ([id number]) [address] [place] [address] Basophils/100 WBC (Bld) 0.2 % Normal [facility] Comment on above: Performed By: #### C BCA #### [facility] ([id number]) [address] [place] [address] Eosinophils (Bld) [#/Vol] 0.1 10*3/uL Normal 0.0-0.4 [facility] Comment on above: Performed By: #### C BCA #### [facility] ([id number]) [address] [place] [address] Eosinophils/100 WBC (Bld) 1.6 % Normal [facility] Comment on above: Performed By: #### C BCA #### [facility] ([id number]) [address] [place] [address] Erythrocyte distribution width (RBC) [Ratio] 14.8 % Normal 11.5-15.0 [facility] Comment on above: Performed By: #### C BCA #### [facility] ([id number]) [address] [place] [address] Hematocrit (Bld) [Volume fraction] 32.5 % Low 35-47 [facility] Comment on above: Performed By: #### C BCA #### [facility] ([id number]) [address] [place] [address] Hemoglobin (Bld) [Mass/Vol] 11.0 g/dL Low 11.7-15. 5 [facility] Comment on above: Performed By: #### C BCA #### [facility] ([id number]) [address] [place] [address] Lymphocytes (Bld) [#/Vol] 1.7 10*3/uL Normal 1.0-3.5 [facility] Comment on above: Performed By: #### C BCA #### [facility] ([id number]) [address] [place] [address] Lymphocytes/100 WBC (Bld) 28.2 % Normal [facility] Comment on above: Performed By: #### C BCA #### [facility] ([id number]) [address] [place] [address] MCH (RBC) [Entitic mass] 29.6 pg Normal 27-34 [facility] Comment on above: Performed By: #### C BCA #### [facility] ([id number]) [address] [place] [address] MCHC (RBC) [Mass/Vol] 34.0 g/dL Normal 32-36 [facility] Comment on above: Performed By: #### C BCA #### [facility] ([id number]) [address] [place] [address] MCV (RBC) [Entitic vol] 87 fL Normal 80-100 [facility] Comment on above: Performed By: #### C BCA #### [facility] ([id number]) [address] [place] [address] Monocytes (Bld) [#/Vol] 0.4 10*3/uL Normal 0-0.9 [facility] Comment on above: Performed By: #### C BCA #### [facility] ([id number]) [address] [place] [address] Monocytes/100 WBC (Bld) 7.3 % Normal [facility] Comment on above: Performed By: #### C BCA #### [facility] ([id number]) [address] [place] [address] Neutrophils/100 WBC (Bld) 62.7 % Normal [facility] Comment on above: Performed By: #### C BCA #### [facility] ([id number]) [address] [place] [address] Platelet mean volume (Bld) [Entitic vol] 9.0 fL Normal 7-12 [facility] Comment on above: Performed By: #### C BCA #### [facility] ([id number]) [address] [place] [address] Platelets (Bld) [#/Vol] 163 10*3/uL Normal 150-450 [facility] Comment on above: Performed By: #### C BCA #### [facility] ([id number]) [address] [place] [address] RBC COUNT 3.73 X10E12/L Low 3.80-5.20 [facility] Comment on above: Performed By: #### C BCA #### [facility] ([id number]) [address] [place] [address] WBC (Bld) [#/Vol] 6.0 10*3/uL Normal 4.0-11.0 [facility] Comment on above: Performed By: #### C BCA #### [facility] ([id number]) [address] [place] [address] Alanine aminotransferase [En zymatic activity/volume] in Serum or PlasmaOrdered By: Mishel Dimas on 03-26-2023 ALT [Catalytic activity/Vol] 13 U/L 7-52 [facility] Albumin [Mass/volume] in Ser um or Plasma by Bromocresol green (BCG) dye binding methoOrdered By: Mishel Dimas on 03-26-2023 Albumin BCG dye [Mass/Vol] 4.8 g/dL 3.5-5.7 [facility] Alkaline phosphatase [Enzyma tic activity/volume] in Serum or PlasmaOrdered By: Mishel Dimas on 03-26-2023 ALP [Catalytic activity/Vol] 60 U/L 34-104 [facility] Aspartate aminotransferase [ Enzymatic activity/volume] in Serum or PlasmaOrdered By: Mishel Dimas on 03-26-2023 AST [Catalytic activity/Vol] 18 U/L 13-39 [facility] Basophils Auto (Bld) [#/Vol] Ordered By: Mishel Dimas on 03-26-2023 Basophils (Bld) [#/Vol] 0.0 10*3/uL 0.0-0.2 [facility] Basophils/100 WBC Auto (Bld) Ordered By: Mishel Dimas on 03-26-2023 Basophils/100 WBC (Bld) 0.4 % . [facility] Bilirubin.total [Mass/volume ] in Serum or PlasmaOrdered By: Mishel Dimas on 03-26-2023 Bilirubin [Mass/Vol] 0.5 mg/dL 0.3-1.0 [facility] Calcium [Mass/volume] in Ser um or PlasmaOrdered By: Mishel Dimas on 03-26-2023 Calcium [Mass/Vol] 9.5 mg/dL 8.6-10.3 [facility] Carbon dioxide, total [Moles /volume] in Serum or PlasmaOrdered By: Mishel Dimas on 03-26-2023 CO2 [Moles/Vol] 27.7 mmol/L 21.0-31.0 [facility] Chloride [Moles/volume] in S griffin or PlasmaOrdered By: Mishel Dimas on 03-26-2023 Chloride [Moles/Vol] 107 mmol/L 98-107 [facility] Complete Blood Count Auto Di ffon 03-26-2023 Basophils (Bld) [#/Vol] 0.0 10*3/uL Normal 0.0-0.2 [facility] Comment on above: Order Comment: Reaso n for Exam Wellness examination;Screening for metabolic disorder;Screen Result Comment: PERF ORMED BY: [place] [address] PATHOLOGIST [employer] ELYSE WHIPPLE M.D. Performed By: #### T SH3 wRFLX, CMP, CBC #### [address] Basophils/100 WBC (Bld) 0.4 % Normal . T darryl [facility] Comment on above: Order Comment: Reaso n for Exam Wellness examination;Screening for metabolic disorder;Screen Performed By: #### T SH3 wRFLX, CMP, CBC #### [address] Eosinophils (Bld) [#/Vol] 0.1 10*3/uL Normal 0.0-0.45 [facility] Comment on above: Order Comment: Reaso n for Exam Wellness examination;Screening for metabolic disorder;Screen Performed By: #### T SH3 wRFLX, CMP, CBC #### [facility] [address] [place] [address] [place] Eosinophils/100 WBC (Bld) 2.7 % Normal . [facility] Comment on above: Order Comment: Reaso n for Exam Wellness examination;Screening for metabolic disorder;Screen Performed By: #### T SH3 wRFLX, CMP, CBC #### [place] [address] [place] Erythrocyte distribution width (RBC) [Ratio] 15.2 % Normal 11.9-15.3 [facility] Comment on above: Order Comment: Reaso n for Exam Wellness examination;Screening for metabolic disorder;Screen Performed By: #### T SH3 wRFLX, CMP, CBC #### [address] Hematocrit (Bld) [Volume fraction] 39.5 % Normal 34.0-46.4 [facility] Comment on above: Order Comment: Reaso n for Exam Wellness examination;Screening for metabolic disorder;Screen Performed By: #### T SH3 wRFLX, CMP, CBC #### [address] Hemoglobin (Bld) [Mass/Vol] 13.3 g/dL Normal 11.8-15. 4 [facility] Comment on above: Order Comment: Reaso n for Exam Wellness examination;Screening for metabolic disorder;Screen Performed By: #### T SH3 wRFLX, CMP, CBC #### [address] Lymphocytes (Bld) [#/Vol] 1.4 10*3/uL Normal 1.00-4.8 [facility] Comment on above: Order Comment: Reaso n for Exam Wellness examination;Screening for metabolic disorder;Screen Performed By: #### T SH3 wRFLX, CMP, CBC #### [address] Lymphocytes/100 WBC (Bld) 35.6 % Normal . [facility] Comment on above: Order Comment: Reaso n for Exam Wellness examination;Screening for metabolic disorder;Screen Performed By: #### T SH3 wRFLX, CMP, CBC #### [place] [address] [place] MCH (RBC) [Entitic mass] 28.5 pg Normal 24.7-34.3 [facility] Comment on above: Order Comment: Reaso n for Exam Wellness examination;Screening for metabolic disorder;Screen Performed By: #### T SH3 wRFLX, CMP, CBC #### [address] [address] [place] MCV (RBC) [Entitic vol] 85.1 fL Normal 80-100 T [facility] Comment on above: Order Comment: Reaso n for Exam Wellness examination;Screening for metabolic disorder;Screen Performed By: #### T SH3 wRFLX, CMP, CBC #### [address] Mean Corpuscular HGB Conc 33.5 g/dL Normal 32.0-35.0 [facility] Comment on above: Order Comment: Reaso n for Exam Wellness examination;Screening for metabolic disorder;Screen Performed By: #### T SH3 wRFLX, CMP, CBC #### [facility] [address] [place] [address] [place] Monocytes (Bld) [#/Vol] 0.2 10*3/uL Normal 0.0-0.8 [facility] Comment on above: Order Comment: Reaso n for Exam Wellness examination;Screening for metabolic disorder;Screen Performed By: #### T SH3 wRFLX, CMP, CBC #### [place] [address] [place] Monocytes/100 WBC (Bld) 5.3 % Normal . T darryl [facility] Comment on above: Order Comment: Reaso n for Exam Wellness examination;Screening for metabolic disorder;Screen Performed By: #### T SH3 wRFLX, CMP, CBC #### [place] [address] [place] Neutrophils (Bld) [#/Vol] 2.2 10*3/uL Normal 1.8-7.7 [facility] Comment on above: Order Comment: Reaso n for Exam Wellness examination;Screening for metabolic disorder;Screen Performed By: #### T SH3 wRFLX, CMP, CBC #### [facility] [address] [place] [address] [place] Neutrophils/100 WBC (Bld) 56.0 % Normal . [facility] Comment on above: Order Comment: Reaso n for Exam Wellness examination;Screening for metabolic disorder;Screen Performed By: #### T SH3 wRFLX, CMP, CBC #### [place] [id number] [place] NRBC% 0.3 /100{WBC} Normal 0-0.5 [facility] Comment on above: Order Comment: Reaso n for Exam Wellness examination;Screening for metabolic disorder;Screen Performed By: #### T SH3 wRFLX, CMP, CBC #### [address] Platelet mean volume (Bld) [Entitic vol] 9.4 fL Normal 6.3-10.7 [facility] Comment on above: Order Comment: Reaso n for Exam Wellness examination;Screening for metabolic disorder;Screen Performed By: #### T SH3 wRFLX, CMP, CBC #### [address] Platelets (Bld) [#/Vol] 185 10*3/uL Normal 150-450 [facility] Comment on above: Order Comment: Reaso n for Exam Wellness examination;Screening for metabolic disorder;Screen Performed By: #### T SH3 wRFLX, CMP, CBC #### [address] RBC (Bld) [#/Vol] 4.65 10*6/uL Normal 3.60-5.00 [facility] Comment on above: Order Comment: Reaso n for Exam Wellness examination;Screening for metabolic disorder;Screen Performed By: #### T SH3 wRFLX, CMP, CBC #### [address] WBC (Bld) [#/Vol] 3.9 10*3/uL Normal 3.8-11.6 [facility] Comment on above: Order Comment: Reaso n for Exam Wellness examination;Screening for metabolic disorder;Screen Performed By: #### T SH3 wRFLX, CMP, CBC #### [address] Comprehensive Metabolic Pane alex 03-26-2023 Albumin [Mass/Vol] 4.8 g/dL Normal 3.5-5.7 [facility] Comment on above: Order Comment: Reaso n for Exam Wellness examination;Screening for metabolic disorder;Screen Performed By: #### T SH3 wRFLX, CMP, CBC #### [facility] [address] [place] [address] Albumin/Globulin [Mass ratio] 1.9 {ratio} Normal [facility] Comment on above: Order Comment: Reaso n for Exam Wellness examination;Screening for metabolic disorder;Screen Performed By: #### T SH3 wRFLX, CMP, CBC #### [facility] [address] [place] [address] [place] ALP [Catalytic activity/Vol] 60 U/L Normal 34-104 [facility] Comment on above: Order Comment: Reaso n for Exam Wellness examination;Screening for metabolic disorder;Screen Performed By: #### T SH3 wRFLX, CMP, CBC #### [address] ALT [Catalytic activity/Vol] 13 U/L Normal 7-52 [facility] Comment on above: Order Comment: Reaso n for Exam Wellness examination;Screening for metabolic disorder;Screen Performed By: #### T SH3 wRFLX, CMP, CBC #### [address] Anion gap [Moles/Vol] 9.8 mmol/L Normal 6.0-15.0 [facility] Comment on above: Order Comment: Reaso n for Exam Wellness examination;Screening for metabolic disorder;Screen Performed By: #### T SH3 wRFLX, CMP, CBC #### [facility] [address] [place] [address] [place] AST [Catalytic activity/Vol] 18 U/L Normal 13-39 [facility] Comment on above: Order Comment: Reaso n for Exam Wellness examination;Screening for metabolic disorder;Screen Performed By: #### T SH3 wRFLX, CMP, CBC #### [facility] [address] [place] [address] [place] Bilirubin [Mass/Vol] 0.5 mg/dL Normal 0.3-1.0 [facility] Comment on above: Order Comment: Reaso n for Exam Wellness examination;Screening for metabolic disorder;Screen Performed By: #### T SH3 wRFLX, CMP, CBC #### [address] [place] [address] [place] Calcium [Mass/Vol] 9.5 mg/dL Normal 8.6-10.3 [facility] Comment on above: Order Comment: Reaso n for Exam Wellness examination;Screening for metabolic disorder;Screen Performed By: #### T SH3 wRFLX, CMP, CBC #### [facility] [address] Chloride [Moles/Vol] 107 mmol/L Normal 98-107 [facility] Comment on above: Order Comment: Reaso n for Exam Wellness examination;Screening for metabolic disorder;Screen Performed By: #### T SH3 wRFLX, CMP, CBC #### [address] CO2 [Moles/Vol] 27.7 mmol/L Normal 21.0-31.0 [facility] Comment on above: Order Comment: Reaso n for Exam Wellness examination;Screening for metabolic disorder;Screen Performed By: #### T SH3 wRFLX, CMP, CBC #### [address] Creatinine [Mass/Vol] 0.74 mg/dL Normal 0.60-1.20 [facility] Comment on above: Order Comment: Reaso n for Exam Wellness examination;Screening for metabolic disorder;Screen Performed By: #### T SH3 wRFLX, CMP, CBC #### [place] [address] [place] GFR/1.73 sq M.predicted MDRD (S/P/Bld) [Vol rate/Area] mL/min/{1.73_m2} Normal [facility] Comment on above: Order Comment: Reaso n for Exam Wellness examination;Screening for metabolic disorder;Screen Performed By: #### T SH3 wRFLX, CMP, CBC #### [facility] [address] [place] [address] [place] Globulin (S) [Mass/Vol] 2.5 g/dL Normal T [facility] Comment on above: Order Comment: Reaso n for Exam Wellness examination;Screening for metabolic disorder;Screen Performed By: #### T SH3 wRFLX, CMP, CBC #### [facility] [address] [place] [address] [place] Glucose [Mass/Vol] 85 mg/dL Normal 70-100 [facility] Comment on above: Order Comment: Reaso n for Exam Wellness examination;Screening for metabolic disorder;Screen Result Comment: [facility] Glucose Reference Range is dependent on time and content of last meal. Glucose of more than 200 mg/dL in a nonstressed, ambulatory subject supports the diagnosis of Diabetes Mellitus. ADA recommended reference range Performed By: #### T SH3 wRFLX, CMP, CBC #### [facility] [address] [place] [id number] [place] Potassium [Moles/Vol] 4.5 mmol/L Normal 3.5-5.1 [facility] Comment on above: Order Comment: Reaso n for Exam Wellness examination;Screening for metabolic disorder;Screen Performed By: #### T SH3 wRFLX, CMP, CBC #### [facility] [address] [place] [address] [place] Protein [Mass/Vol] 7.3 g/dL Normal 6.4-8.9 [facility] Comment on above: Order Comment: Reaso n for Exam Wellness examination;Screening for metabolic disorder;Screen Performed By: #### T SH3 CieloX CMP, CBC #### [facility] [address] [place] [address] [place] Sodium [Moles/Vol] 140 mmol/L Normal 136-145 [facility] Comment on above: Order Comment: Reaso n for Exam Wellness examination;Screening for metabolic disorder;Screen Performed By: #### T SH3 wRFLX, CMP, CBC #### [facility] [address] [place] [address] [place] Urea nitrogen [Mass/Vol] 13 mg/dL Normal 7-25 [facility] Comment on above: Order Comment: Reaso n for Exam Wellness examination;Screening for metabolic disorder;Screen Performed By: #### T SH3 wRFLX, CMP, CBC #### [facility] [address] [place] [address] [place] Creatinine [Mass/volume] in Serum or PlasmaOrdered By: Mishel Dimas on 03-26-2023 Creatinine [Mass/Vol] 0.74 mg/dL 0.60-1.20 [facility] Eosinophils Auto (Bld) [#/Vo l]Ordered By: Mishel Dimas on 03-26-2023 Eosinophils (Bld) [#/Vol] 0.1 10*3/uL 0.0-0.45 [facility] Eosinophils/100 WBC Auto (Bl d)Ordered By: Mishel Dimas on 03-26-2023 Eosinophils/100 WBC (Bld) 2.7 % . [facility] Erythrocyte distribution wid th Auto (RBC) [Ratio]Ordered By: Mishel Dimsa on 03-26-2023 Erythrocyte distribution width (RBC) [Ratio] 15.2 % 11.9-15.3 [facility] Globulin Calc (S) [Mass/Vol] Ordered By: Mishel Dimas on 03-26-2023 Globulin (S) [Mass/Vol] 2.5 g/dL [facility] Glucose [Mass/volume] in Ser um or PlasmaOrdered By: Mishel Dimas on 03-26-2023 Glucose [Mass/Vol] 85 mg/dL 70-100 [facility] Comment on above: ADA recommended refe rence rangeRandom Glucose Reference Range is dependent on time and content of last meal. Glucose of more than 200 mg/dL in a nonstressed, ambulatory subject supports the diagnosis of Diabetes Mellitus. Hematocrit Auto (Bld) [Volum e fraction]Ordered By: Mishel Dimas on 03-26-2023 Hematocrit (Bld) [Volume fraction] 39.5 % 34.0-46.4 [facility] Hemoglobin [Mass/volume] in BloodOrdered By: Mishel Dimas on 03-26-2023 Hemoglobin (Bld) [Mass/Vol] 13.3 g/dL 11.8-15. 4 [facility] Leukocytes [#/volume] correc rigoberto for nucleated erythrocytes in Blood by Automated counOrdered By: Mishel Dimas on 03-26-2023 WBC corrected for nucl RBC Auto (Bld) [#/Vol] 3.9 10*3/uL 3.8-11.6 [facility] Lymphocytes Auto (Bld) [#/Vo l]Ordered By: Mishel Dimas on 03-26-2023 Lymphocytes (Bld) [#/Vol] 1.4 10*3/uL 1.00-4.8 [facility] Lymphocytes/100 WBC Auto (Bl d)Ordered By: Mishel Dimas on 03-26-2023 Lymphocytes/100 WBC (Bld) 35.6 % . [facility] MCH Auto (RBC) [Entitic mass ]Ordered By: Mishel Dimas on 03-26-2023 MCH (RBC) [Entitic mass] 28.5 pg 24.7-34.3 [facility] MCHC Auto (RBC) [Mass/Vol]Or dered By: Mishel Dimas on 03-26-2023 MCHC (RBC) [Mass/Vol] 33.5 g/dL 32.0-35.0 [facility] MCV Auto (RBC) [Entitic vol] Ordered By: Mishel Dimas on 03-26-2023 MCV (RBC) [Entitic vol] 85.1 fL 80-100 [facility] Monocytes Auto (Bld) [#/Vol] Ordered By: Mishel Dimas on 03-26-2023 Monocytes (Bld) [#/Vol] 0.2 10*3/uL 0.0-0.8 [facility] Monocytes/100 WBC Auto (Bld) Ordered By: Mishel Dimas on 03-26-2023 Monocytes/100 WBC (Bld) 5.3 % . [facility] Neutrophils Auto (Bld) [#/Vo l]Ordered By: Mishel Dimas on 03-26-2023 Neutrophils (Bld) [#/Vol] 2.2 10*3/uL 1.8-7.7 [facility] Neutrophils/100 WBC Auto (Bl d)Ordered By: Mishel Dimas on 03-26-2023 Neutrophils/100 WBC (Bld) 56.0 % . [facility] No Panel InformationOrdered By: Mishel Dimas on 03-26-2023 Estimated GFR (CKD-EPI) > 60.0 mL/Min [facility] Creatinine Clearance (Chem N/A [facility] Nucleated erythrocytes [Pres ence] in Blood by Automated countOrdered By: Mishel Dimas on 03-26-2023 Nucleated RBC Auto Ql (Bld) 0.3 /100{WBC} 0-0.5 [facility] Platelet mean volume Auto (B ld) [Entitic vol]Ordered By: Mishel Dimas on 03-26-2023 Platelet mean volume (Bld) [Entitic vol] 9.4 fL 6.3-10.7 [facility] Platelets Auto (Bld) [#/Vol] Ordered By: Mishel Dimas on 03-26-2023 Platelets (Bld) [#/Vol] 185 10*3/uL 150-450 [facility] Potassium [Moles/volume] in Serum or PlasmaOrdered By: Mishel Dimas on 03-26-2023 Potassium [Moles/Vol] 4.5 mmol/L 3.5-5.1 [facility] Protein [Mass/volume] in Ser um or PlasmaOrdered By: Mishel Dimas on 03-26-2023 Protein [Mass/Vol] 7.3 g/dL 6.4-8.9 [facility] RBC Auto (Bld) [#/Vol]Ordere d By: Mishel Dimas on 03-26-2023 RBC (Bld) [#/Vol] 4.65 10*6/uL 3.60-5.00 [facility] Serum or plasma albumin/glob ulin mass ratioOrdered By: Mishel Dimas on 03-26-2023 Albumin/Globulin [Mass ratio] 1.9 {ratio} [facility] Serum or plasma anion gap de terminationOrdered By: Mishel Dimas on 03-26-2023 Anion gap [Moles/Vol] 9.8 mmol/L 6.0-15.0 [facility] Sodium [Moles/volume] in Ser um or PlasmaOrdered By: Mishel Dimas on 03-26-2023 Sodium [Moles/Vol] 140 mmol/L 136-145 [facility] Thyroid Stim Hormone w/Rflxo n 03-26-2023 Thyroid Stim Hormone w/Rflx 1.38 u[iU]/mL Normal 0.45- 5.33 [facility] Comment on above: Order Comment: Reaso n for Exam Wellness examination;Screening for metabolic disorder;Screen Result Comment: PERF ORMED BY: [facility] [address] [place] [address] PATHOLOGIST [employer] ELYSE WHIPPLE M.D. Performed By: #### T SH3 wRFLX, CMP, CBC #### [facility] [address] Thyrotropin [Units/volume] i n Serum or PlasmaOrdered By: Mishel Dimas on 03-26-2023 TSH Qn 1.38 m[IU]/L 0.45-5.33 [facility] Urea nitrogen [Mass/volume] in Serum or PlasmaOrdered By: Mishel Dimas on 03-26-2023 Urea nitrogen [Mass/Vol] 13 mg/dL 04-22 [facility] WBC Auto (Bld) [#/Vol]Ordere d By: Mishel Dimas on 03-26-2023 WBC (Bld) [#/Vol] 3.9 10*3/uL 3.8-11.6 [facility] Coding Summaryon 07-25-2022 Coding Summary HTMLBase 64 BgcbhffbFMw6gDi+PG hlYWQ+KU5IOVBmP10j iLOgkY3TD0aLVW8LFP WTZWLPUP9XHB6ttNW4 YXqhF5XvhsEt KvjhkWKpXB22IAo6OK Q6sOalFQcbzR2jtVFg Q0w5KbZxIU15gV83OI bzXZUmSkY9WzQknigd bWFy G5iqQpKzlMUrTla+PH RhYmxlIHdpZHRoPScx AKJlWhZvdTmsXU3yWc 9yZGVyLWNvbGxhcHNl OiBj y4hkNJRjERupHJ8jxR jgJ7MmnDA3RJTxt5s7 Nd32gWO+WKUfIHW7mO lnMRvbo189QgMff6td IDM3 pIWxMUrcPBI0I08av4 W9URChKZHzNPT0pUU6 wL9nvGurelihW1JryJ MfKuT3LQV3uWIpyQ8t bGln rulgdP9vQkj+Q09ESU 6FGLZJVS9ZPxr1Y2Pg PjwvdHI+VR90LIJkZM 76eRSmnHZrj5kaoUd1 JzEw OLPlBZI9jEupZEbfb8 QxNCEhQ79dqBIxg4M7 IGNvbGxhcHNlOyBlbX R6rS7mKSrjvnuqs3bb dzsn Czdlz5qtqs58uA15A0 5gXFyhWGDjKTR6VPZe CTUdmVcesr7ytH1cVp 8+NDivc1axm0alhXm1 IjIw USHhztHixVguYJM7n4 CeYa86T7YdtPlvw6Zx Fvv1kv82qFUyt5W8bQ B6QLqrOHZdfY9fPHdd ZnQ6 AGKlDkJspH60gKEvGB epHv3bvJnokKcdWM0x TEUqnivgAYEzuW7qAO QriCBvgYmqPY7uTHXa bjtm k919YhAiMAR7RPPmrY OlZ8LdpO2lLmAuZURy NPUwQ9IlsMGzPXtfM2 78XSqsOwZ8KPJxsaYy Y2Fs INKblJraSlX2u0Y0Yp 9Jq3GouxhnVOQ2JZqw REPlXdC2VuVnBjX7D9 LdLwv2DGEfkJnbFG5p J3Bh IPExeddzqwbotKW4SN BqIAZfmT77mEVvFPtb Lx0bk0T2w032UVKmQM EqhU94Te5ngEgnMOOe dCBU oK4ltadcv0tfaqcxMg UcWLKkKZy0ZFx5AARz rIgjOtAhILV6QfN6RZ T2zCPufY0apXapwczz dG9w Oyc+F15ohC4qNCD0QU E9ihdxUCJjfoEnTY40 MJ50W7FfJbhezPGxwN U+ZMLdiyXubLllGC2m YmFj u8ksp7NoDVpqE9VhLB VpBZqgUdz8COBfMGX1 nOU1gT5oPUEiNAxhl7 I3cJJ9L1IjztAhjm7n b2xs QZUsPBxmA61ngIVyk3 S7TFAouJG3MMTwnPmv MkKkrH62Wqj+PGNvbG nba0CmDpwat8moz6oi dGg9 IjMwJSIgdmFsaWduPS Z2c8YhCs41O74lATpq ZHRoPSIxNSUiIHZhbG lqsh4mpJ2kYs7+PGNv bCB3 qZS2gI4rTNIeRwU0OP nxZ639XvMzuUYnMbkh t7fzq1hxwRt8MhCyEI ZcxjJeuRmyEGI1x9Hh Lz48 D92mPXntDUHcJOYlOQ PdFWYvgUhjew3zoN1l Ii8+ZD6zz8vist37hG 48dHI+OSKkZTC2fZvy PSdw NGFarR8hACayNcU1DT CsUnZoyC87bTEjOXcz Fl3qsKndeIqrHT7fGV Lhnboin932NnImg2kz IDEw gYLaLVywUEC1A82ea1 J8LXTaSXAeVVQ6mAV5 yQ6nfEgfktlckTEteA sgdmVydGljYWwtYWxp Z246 IHRvcDsnPlBhdGllbn MgIaMaYZt3F8VhCpl7 BFVdpYgnVU0geROrFF mjGx0ihNjqnPmnGB5b NTBp dztoe429DdKtx6ogTU GsyLZfQXzmQEH0O94f z0B2WYNuOTJpUSZ9eQ A5hH9vcZmjvjhlcSAz dDsg dmVydGljYWwtYWxpZ2 46IHRvcDsnPkJpcnRo AATfwXL4WV67XT68tB Dkp1N9sAX3Y9MbJCYu bmct tnyzbQY9XDXeBUOxoZ 58Tq0sjVxyAd2kFHOx BDS0SWQmnSRzZ4CvzB 1zYrClCLHuRUUjQ9Nx eHQt YDauE813OZhzWsT0NF AjndBqU8ChHNUyxLea JhH9i8E3Kj1IO1Y5EN 15PI57cNCar0S3cAE4 J3Bh ZKDdzrpbrlmrmKI3QA GkRMPhlG01Hs0oaFtk El7hALAeWJD4QBBsaX FyW1QedC7rWpXkEOFo MDAw O6WhdNGbWSsjE674YR miVwQ1ZALxjkObV0Ad YFOtkBqfPcP3k6M8Yt 6GJJf0OO97DR33zKFd c3R5 gHU0U1VfLJBzlzpvzb pkoKW5RATyBUDoiN54 Xo1xkWuqKp6xATEdVV X1GUEopZFdK7TghY3n OiAj MYBnBLTmN8StuNQzCP slA089IYmjCzT8YNEz ghCvR3KqXTEelKfkWc K4w1N8Do1ATCGmUU30 IFR5 vLY9EV07VJ71D4ZlVb wvdGFibGU+PHRhYmxl IHdpZHRoPScxMDAlJy BaiJhdMB3qSr2uUTHt LWNv uXxaqKTsTeLqb7poJU ItGUeeCV3vtAejR0Sw pTP0QUIpx4i6Eg41M1 1sT7CyvUS+PGNvbCB3 aWR0 rY1qQmGbNuF7XFxbJ2 50UoQmwHIuLvmme7qp n7drqQc7AhB5ADIzuz BijHblHBL6c8JgVz07 Y29s IHdpZHRoPSIxNSUiIH FmcCloig6zbA2kSj9+ WITwaJO7vCY0xB8iJq RhQsE9VRsjO493IoZa cCIv Dnhjp7ihe3vyyDw1Kj IwJSIgdmFsaWduPSJ0 h9PtRv14N4LkuXmjg1 YhOzp3cx47kETbi1K6 bGU9 F0MkTDFvwtlldPCrrU pmXV3jMIJvisorRYDg pP5yREUpP9a1PwFkSv G9CIvtZ5DukiX9VOOd cHQg FOvrKVQ0G78ei2P1BH GpTKYgEQD3cXD0pJ6i bGlnbjogbGVmdDsgdm TtgBkmRYkxUDuwK357 IHRv cTfgVHOnhM3tICMnzV HmeKnzSW0gQWLgeghl DaVFGU9BNoksDJVSBF QRQvJWPR1ROS15PI69 dGQg f8A1rIS1M6MyXRNtud okbphwnDV0TKAeUYTj eR80tRLnMSasRq4kv2 Z4t615WJZjOWHorD78 Zm9u sVbcLSWrbXREkG3xym pqj9qxixxcBlVbQKFq HCw5XYc2WGJbnIvsHw IyHAA3IyH0TKY4yCUi bC1h qIkqaconaQ4gTop+MT EvMTMvMjAwMzwvdGQ+ SEFyIXK6dJypXYmyAW GmxL2pWHFjN5c1CzBo LjA1 AXkaJ2UjYIAuwocwXj 61zO0wHwDcSnI0JHys H4UvftD3QGZwkCVmRP khWAI5Z71os2D0KUJi MDAw IDT0pDP7wX1kgDopxk ogbGVmdDsgdmVydGlj OQxyAFzxE726UUMypQ tfUrW3JXxvCVGbUL18 ZD48 qUKun0X3fVU6L9XsJG QhjdljtqjjlCL1EFMc JAKxpN74rTBhIRynTd 9ip4A8z383ORMuICCr aW47 Iw5oeIdvZTOgvNEJmO 8pcljtj2ugqhqcGkQy GQZhZJh0BDz3KIUoaX pmFdLcPBQ0FeI2MSO6 aWNh aL6adXkoniqkjB2qTb c+BnJKAEdXTV96US88 tTMar3D4nJF8Q2JjQY HetijdiftpaNH0BAWk MDUw wV73vFPzJMyyAr7in3 Q3s846OUCqTTCcjF39 Ww4amIqkTZLciLFKqT 9refciw3zmroeyEmQz MDAw LXx5HSd3VYDftKlcUb ZkMNZ4AzP3ELG2zOYr dE7pnGnucbaasW9cNj c+X5J9W4UwZmzinKI+ PC90 XFSsVY18wYFnsSSeg4 jvnGj1ZgXmWFRmCKR4 oJcxGWabu7LdIIMiE9 8coLDds2K6GTRkoKkj cHNl CkQvzCV9tH6oPEvyxd mbh5hixzpiXfboa7wg rs80gZ78O84iKEmjCG RoPSIzMCUiIHZhbGln bj0i qH4rOr2+YOYqkEA0iH Y5tJ4zHnSqGbK1EFle A352JyWcmTBkAomjr3 bmd9euzEk8BjKsFQVc dmFs iDekAXY6i0UeWb76O0 9sIHdpZHRoPSIyMCUi KTHwhWxuzd4baD9rSh 8+SE0zk6qoeo12jS60 dHI+ GNVxJHI4kKcbIDoeUR BmiE9bEHirEeX0BTLm BpMvtK52qFNuKAuqVf 6yeZsqbBahDM9kDGYz bjtm f644GlTfg8cvNFFmkQ YjZLntUVB5G78ug3P7 UDCuYQZxUNQ2tDG0zT 1hbGlnbjogbGVmdDsg dmVy cAtlLLnlHHjhY961JD PvtSsnOnIfvAFrY0vf ewYKYT2eAqwtpAT+PH FsUND4qPsvBLgcWIBf aW5n BTVzB6i2QbXqVoW5MM luK7XpqmG3JPJfwPYd CGSsoBVLhS4iuuulk5 xvcjogIzAwMDAwMDt0 ZXh0 OONdeMfxTiZiNZH6Mc M2LAB2hPKlfA5lsSpg qpxaxL4bXpk+RklOOj wvdGQ+SGPvVYD8oNrq PSdw YXLeaE9tFWNbD4e1Nz ZzWyV7HPdwJ3RkjjA9 IGJvbGQgMTBwdCBUaW 0zsgxcv5ktzsqdPlXu MDAw CKx4QZp1FBAczWsrIm IyNMA6FmY6IVD5qBRs vY1yiDgfqzioaQ9kHd c+TVJOOjwvdGQ+PHRk IHN0 rEruQRgjEYYzuQ8fNY AwQ4l7HsBiSnR6LJnq Q5OekiJ6HBHhmSCuKH LzoHSZyJ7kjeasw3gf cjog KhNrKCWaIEt0CXn0CU SpjVxdIvGgDFU5JrL4 IXB9nMVykA7bwVbtqx yhkY4oLwb+VNR8FKN4 PC90 JX90X5IpLdaqwRUwuM U+PHRhYmxlIHdpZHRo PScxMDAlJyBzdHlsZT 1aYx6eWVEaRPNclKyp cHNl OiB (more content not included)... [facility] Coding Summary HTMLBase 64 TrplljesNOn2vWp+PG hlYWQ+WH5OZOOuC49q pUOgrB0VF1nKMP6IUN UFCOPTQR9LFB1zsOS1 OHptQ2QeakPs OihkhEFaWT51DAm2SF F1uTgaCCmpwR8ikUWl W0b7AwLpST23zX39GS plEGTmAdZ3HyQepqav bWFy B0urMzJtpHIcHqo+PH RhYmxlIHdpZHRoPScx GEUdBvNktVhgYH2ySi 9yZGVyLWNvbGxhcHNl OiBj z3nxZXEkLVnqUA7urV imY8BnqZD9HGSkq1w6 Cn50dIB+QMGuAIJ7lE niKVhyx087HhHka5re IDM3 cGVmHQvxYUR7G65dq2 K8AAGxSUXwLME3nCT1 iR5wfDzqscsjA3HigX VoBhH9ZTF5tWOqfP4p bGln mpiadO9aOhp+Q09ESU 5SDKGYTP4EOlx9H9Zk PjwvdHI+EX80GNZyER 39nEKwqEDjo8bimDv7 JzEw YSPjQDI7tOedVLcfz6 UtWNNqM58jdWZhd0E6 IGNvbGxhcHNlOyBlbX Y5yH6bTRstdkcpt3pm dzsn Zdkuk6gjja32dK97X2 5oFCnsEJWpNNU8KKKl YZEraBujdm8sjE6xQq 8+USxlw7agx8hxgXs8 IjIw XJBvxnKeuAyjAGG4c1 LkHn57O5QhyLong6Rq Okx7za06rBSol7C4tW B8AWlvBNWeqA3dIAic ZnQ6 JPHtLmAqaA47fOLhLM jvOn2rzYihtHoeEP8f SFWwjjmlVVRdlJ6zCN CshLTebKppSL1ePCFy bjtm a321ZpJpHZK1CODneE RkD6OrkP2gTzSyOFFi ITWtU1BpgUMfGQuwE8 47WBjaYrF3FKCciyKw Y2Fs LLPobNckDrF8g6Q4Dj 2Jh9NaffawENM7UNfm XZAeUyW0HbWkHsE2Z1 EaOns2PIYdyOqrUO3p J3Bh VZLobuhddiaaeBV4FV FmVJJqfZ69lUNiWDhs Fn9ib0E6b404YLKmVT ZrsG03Om6yyQffQYOu dCBU dF2ivbavr2husjssEt VwIRYyFAs8GDm1UQDt zSsjOqKjEBV5DdO7ZF G4hATbfV7mkNqojxhu dG9w Oyc+V22vcT5yZLW5GN U2xbpaAUEogaXxCI41 JU88V7SrDiehyHJftU U+LLLdigDopZzfRH9t YmFj m7qml0ObVCyfX9DfMT JhIUzfVtp8LCGzOJZ3 nQU5fP9oTLNmCWuou6 R8oNX1R5TsvvTagh1j b2xs TSTjFInvB71jrCIjy7 F7BYDuhYB2SZVpfEhj TfLdgZ24Mkl+PGNvbG dht3OtHlspc4ssd2xm dGg9 IjMwJSIgdmFsaWduPS J4b0RiFo48S97zYOhj ZHRoPSIxNSUiIHZhbG mwqi9hzU2bAl6+PGNv bCB3 jYA2uC4fUTSmYbU0ZS kwE787NmLamXEkPkgd w1xcj8tkkOx0EoRlVP TklsCmjRknZKP4q1Jv Lz48 E41tIHrkLBCcPUVoEQ BmJRGdbAcozd5lcV7d Ii8+KC4dd2kbzo74pW 48dHI+ILCaDAB9sZwq PSdw UHIifU8vTZwqMeL2BI ObCqJxnV20fGNzVYto Dz4bkHywoZqjLJ6kFR Cnvbcgo661OiCna9ps IDEw sPGaUOodYMJ0R47je3 A8YFXiHZMpMWT8fKY6 qB8bnByxtqxxuOTzlM sgdmVydGljYWwtYWxp Z246 IHRvcDsnPlBhdGllbn YrHrCgMAu6Z9YnCcp7 CTJseGztLE0bpDJuWZ sgVf7ncPlviMdeIG3u NTBp gvkfs107UbWxn3tiBA TtcWQnRDvvPWH3X94z g7U5XGBuFBBoGVG3eW K9bF0ysOlyjxxpaXUs dDsg dmVydGljYWwtYWxpZ2 46IHRvcDsnPkJpcnRo IIBfzIW0YX99JM97aF Vbn5B4dFE6A6OhHUHe bmct zmrdiRC6XXTlSPVyjM 57Jx7coWymMp2nMDZl BDL5BEFldPVyU1MziG 4gCxUpQTZlTRYbP7Xu eHQt ZZviB577ZHwjLuJ2PL VgblVxI3YmRWTmnFau IoK8h7P4Ul3WI9M4NS 77JU41wJUee8A0wBR6 J3Bh KHAuwbjifjbdwVE6TI JnAPYcoA95Om6ehXyc Pe9fRGYnOGT4WZZbuE OyX9RuuG2jBaJwCGLq MDAw Z1WfyGCiVKjzX988FO ftCcJ6VSTrkqQxH2Pn MAKeiUhsAaB6o9K2Jx 1BPYh0OA33UF84sPGb c3R5 mJP6M6ZlQFLhfxkrks gqyTF8CLDsPODcoJ67 Bz0gaXyzJl6mLIFnOO N7UPJdxQGsK1VqaP2j OiAj YGLpLLDuU5RlaHSmUI xdJ085EXwzGcU9WVMg ewUuB6FrMOFriIquXg P9d4P6Yo4ENNOlGM47 IFR5 sNZ4KC21XJ54X2JvQt wvdGFibGU+PHRhYmxl IHdpZHRoPScxMDAlJy SkuJtdUG5lPa6nUVIn LWNv vZqntIVsCpVbm7exOM QfPAxoWI4xtFyxF1Lu wRV0BKPjn3a1Ez16T8 2xX1FhjZJ+PGNvbCB3 aWR0 sN6eYbNgAlP2PJqfO7 57JfNssQNyItikk4iv q8tmfRz8JrQ3QWFwky HaaBobNBB0k3XcHk52 Y29s IHdpZHRoPSIxNSUiIH YszJittx3gaJ5uAu6+ XLRxsXW7gNK0rI7xDs NzEeJ7LEjmU500FjOk cCIv Bftco2gcm1glxKd5Uk IwJSIgdmFsaWduPSJ0 w9OpWu18O1CooCpvk9 NhWgx8mq69wNNgn2R7 bGU9 O6KkGLIpvqhnpIVmeZ kzJR5qOTVtmdhiUAKv tC6cMZXbH0q5CgNeQc W9BNiiZ3RzxgH9KAWk cHQg RIikCJZ7V13lh7Z6UX RwVBOqPCL6rNN6tS0e bGlnbjogbGVmdDsgdm HupQiyJFarMNcdY521 IHRv xTnlOOAnaO1tIYLemD BfiQupYG5dZAXvdpwm BpSPPS4MMelyGAHJQX SDClPMMB1UMY99IB73 dGQg u9Q8qLC8S3BbQJJpzq bptgfigFI9NEPxKDCc yH65lAItUUetFa4gm4 X3a832WGPzSLMzfA02 Zm9u qSjtAJUszPKSlJ1sah wot3cvvtzqNkVaQQOr RZb9HSw8EJFeoIbbPg XpLHR2XaO3TEO5bZDx bC1h nZztpmwsaM9jMln+MT EvMTMvMjAwMzwvdGQ+ GXGzPBB6kDhbTFnuBC RioM6qMWXzB6b5BhXb LjA1 QRpqE6VbGNDcoinqRf 91pS0uJdIdJaV2FSsy J0TfatD6KSXtiQSeDN ijBKH8K15au5C6ITNe MDAw MGV3qMZ7xN6zwQjopq ogbGVmdDsgdmVydGlj MFojXOtvB876YWCnyM jcDnO8JQltGUZkOB00 ZD48 jXUvn1J1bDC8E1NbHT SndyvvvrgogSD4PAUi JENicW71tZFyAYgzTq 4xp7H2o778LAFvJPQv aW47 Ky7osUimIODryXXHuN 0bxythv4xiamzmCdOd ZXUhCFv9QBg5FMDafK noWaNtJGF6SnA5OND7 aWNh tG1vmOotapbxeT2qFm c+JfRMZMbTNL37RX11 pPZwx8R1yTC6Y0JqZJ TnnnehzsjjhQM6HYYh MDUw sA08wDGrWZqxRv2lt9 F1o627LWBeLNEhgJ70 Hi9cyZehTILnuSYTaT 1ankoyd8rsjeooQsPf MDAw VZi1YTy3SDJfyZxyIb ZqBXU9EoB7CHJ0kZCz rS0pgAdmzupcaX7bAo c+OL3yyibrpsN5NK13 ZD48 E8EtJmsqyVDcwJW+PH RhYmxlIHdpZHRoPScx WRVhVcTyiDbjSD9sHp 9yZGVyLWNvbGxhcHNl OiBj i4asBAMxMTpwEM7lsD rjI4FbgRQ7BALrg7y1 Pk40T39rP7JyuRQ+PG PigSY9fQR3iM3tIqWw IiB2 KRvhZ438JqYlcHTbYd nyf3bns8khtRp5QzJz QETkugDneXmeOVS4k4 CsGp07H19kYYwjLGNk PSIy QFHsDMVraIbadg9fwN 9wIi8+MJPykRF9pQM8 qI3sShPkEwD4ZSypX4 77LnBuxMCvKslfB30q Z3Jv dXA+JCPzQbx7DXHzgV pvCP5hxRXjFGcsPu4q ZOJ8NtMwDoLmHOxgT1 BhZGRpbmctcmlnaHQ6 IDAu VGFjlV92Pi9faJebBy 3gLBLtQYV5FTFpbJJm D3AnjJ0eOaKgKBRwSX RdI7YjyJHgIWbbK025 IGxl MoM9YXXuskIyT6AzEU LwrNqyTeQ1p4T7Px9C uLazyBRpCO4rEkThLX c5V8DbVvc2RIEfkIlv ZT0n wJFtMZtrKx7sjWeghV zwSI2eAKOhkkbtm371 QzSxp3pdJKMtfQJfVC jmJJD5T22sj3N8ZGZw MDAw ALP2nEE1oA2acMybqj ogbGVmdDsgdmVydGlj UNhzAJgmN291FGQapK suLeFIOkr4V8TcBsr4 ZCBz jThvFN3anGQcOJnmQi 7ppRhbcVvgVT7wPLZi ptkvv827XoNln1khBH MzwBWcHTvuDBH6D38g b3I6 QHOoJDWiYPA6bOP2mS 1hbGlnbjogbGVmdDsg dmVydGljYWwtYWxpZ2 85DEPyvVxyPj1QZkd5 L3Rk Hpe8QQFxhTxbOO0enV TuJOrdKd2vnOfllSng DE7cUAGoitqhd122Uh Dcb0qdQPElkCRuCMpf ZXM7 A65hc7S6ZFZpLIUgNZ X0aCG5gQ1ruSehkjka bGVmdDsgdmVydGljYW clVXulP041KWUfhMyd PlBh eWVyOjwvdGQ+PC90cj 55Z9YnRuzuKsw8EPDr ENO6kOA3bF4tTIIrQH abe5R5jCR3J8OyxzHi ci1j b2x (more content not included)... Normal [facility] ED Clinical Summaryon 2021 ED Clinical Summary [facility] - Emergency Department [address] [place], [place] [id number] ED Clinical Summary PERSON INFORMATION Name: JOSELIN VALENZUELA Age: 16 Years Sex: FEMALE : 2005 MRN: Acct#: Visit Reason: Chest pain; CHEST PAIN, HEADACHE Arrival: 07/19/2022 20:06:01 Discharge: 07/19/2022 22:07:00 LOS: 000 02:01 Check In: 07/19/2022 20:06:01 Checkout: 22:07:00 Address: [address] [place] [address] PCP: MISHEL DIMAS PROVIDER INFORMATION Provider Role [...] stated that she did had gone to [place] today, and noted throughout the day, intermittently. [...] Medication Allergies. Medications: (Selected) Documented Medications Documented [facility] Prescription: 0 Refill(s) ibuprofen: 0 Refill(s). [...] Problem lis (more content not included)... Normal [facility] ED Patient Summaryon 022 ED Patient Summary [facility] - Emergency Department [address] [place] [address] PATIENT DISCHARGE INSTRUCTIONS Patient Information Name: JOSELIN VALENZUELA Age: 16 Years Date of : 2005 Reason For Visit: Chest pain; CHEST PAIN, HEADACHE Arrival Time: 07/19/2022 20:06:01 Primary Care Physician: MISHEL DIMAS Attending Physician: Ahmet Moreno DO Comment: Visit Diagnosis: Diagnoses This Visit Abdominal pain, epigastric (R10.13) Acute chest pain (R07.9) Chest pain (10148555) Elevated blood pressure reading (R03.0) The Pharmacy at [facility] is open Friday through Friday from 9A [...] alcohol and/or drug addiction problems; contact the [facility] 21/04 Crisis Hotline -Text [id number] [phone]. If you received any narcotics, sedation, or [...] legal documents With: Address: When: MISHEL DIMAS [address] [place] [address] Business (1) Within 3 to 5 days [...] and treatment you received today in the [facility] Emergency Department were for an urgent problem and are not intended as complete care. It is important for you to follow up with a doctor, nurse practitioner, or physician?s academic assistant for ongoing care. If your symptoms [...] so we can reach you if necessary. [facility] Emergency Department has provided you with a complete list of medications post discharge. Please inform your meeting specialist/provider of your visit and for further instruction on these medications. Any specific questions regarding your chronic medications and dosages should be discussed with your primary care physician(s) and/or pharmacist. New Medications [id number], [address], [place] [id number], [phone] famotidine (famotidine 20 mg oral tablet) 1 [...] 70 bpm Per (more content not included)... [facility] Progress Note - Nurseon 06-30 Progress Note - Nurse Pt provided with both written and verbal discharge instructions as well as follow up information. Pt verbalizes understanding and denies further questions or needs. Pt changes into clothing independently and ambulates upon discharge without issues. [Electronically Signed on: 07/19/2022 22:06 EDT] ____ Martha Almaguer RN [Verified on: 07/19/2022 22:06 EDT] ____ Martha Almaguer RN [facility] .Auto Diff 1on 07-19-2022 Auto [place] % 8 % Normal 12 [facility] Comment on above: Performed By: #### 1 [id number], 2037066858, 37351005, 7783556002, 1634079, 9403193, 5944167153, 4830693480 #### [facility] (DEFAULT) [address] [place] [address] Baso Abs# 0.0 x10 Normal 0.0-0.2 [facility] Comment on above: Performed By: #### 1 [id number], 3691610221, 40324591, 3949363201, 1348116, 4411379, 6983392869, 2601950656 #### [facility] (DEFAULT) [address] [place] [address] 41507 Basophils/100 WBC (Bld) 0.2 % Normal 0.2-2.0 [facility] Comment on above: Performed By: #### 1 973013492, 6314535045, 92972229, 2954362916, 6162064, 3962867, 6384421248, 8523555330 #### [facility] (DEFAULT) [address] [place] [address] 51750 Eos Abs# 0.1 x10 Normal 0.0-0.4 [facility] Comment on above: Performed By: #### 1 [id number], 2021679063, 61534836, 4481682934, 7644734, 0527281, 0639594085, 3201029602 #### [facility] (DEFAULT) [address] [place] [address] 13508 Eosinophils/100 WBC (Bld) 1.8 % Normal 0.9-4.0 [facility] Comment on above: Performed By: #### 1 551122853, 6864711177, 55953797, 6018114269, 6967937, 3342629, 2554925695, 0631743591 #### [facility] (DEFAULT) [address] [place] [address] 41329 Lymph Abs# 2.5 x10 Normal 1.3-2.9 [facility] Comment on above: Performed By: #### 1 057695273, 9286470892, 65261231, 9126322686, 6298757, 5176397, 5390112864, 5855224992 #### [facility] (DEFAULT) [address] [place] [address] 85475 Lymphocytes/100 WBC (Bld) 44 % Normal 14-48 [facility] Comment on above: Performed By: #### 1 692048841, 6530545985, 01172313, 9002471872, 9649361, 6496423, 1348783635, 5352027837 #### [facility] (DEFAULT) [address] [place] [address] [place] Abs# 0.4 x10 Normal 0.0-0.8 [facility] Comment on above: Performed By: #### 1 705333320, 6685278543, 50880528, 5986984497, 2713594, 4699309, 3255387946, 0409206650 #### [facility] (DEFAULT) [address] [place] [address] Neut Abs# 2.6 x10 Normal 1.5-9.2 [facility] Comment on above: Performed By: #### 1 450894302, 2079537657, 39302044, 2623659920, 9243616, 8085277, 1734915734, 0971199494 #### [facility] (DEFAULT) [address] [place] [address] Neutrophils/100 WBC (Bld) 47 % Normal 44-88 [facility] Comment on above: Performed By: #### 1 930642619, 6835431073, 40767279, 3845635104, 5752821, 4435313, 2223167011, 5459826040 #### [facility] (DEFAULT) [address] [place] [address] CBC w/ Auto Diffon Erythrocyte distribution width (RBC) [Ratio] 14.6 % Normal 11.5-15.0 [facility] Comment on above: Performed By: #### 1 376404796, 9225439606, 61952902, 1441352545, 8763722, 6104317, 3515278346, 4557254036 #### [facility] (DEFAULT) [address] [place] [address] Hematocrit (Bld) [Volume fraction] 40.2 % Normal 33.7-40.4 [facility] Comment on above: Performed By: #### 1 725265430, 1958901426, 47297142, 4597619973, 1288452, 3268313, 1116321103, 7855891707 #### [facility] (DEFAULT) [address] [place] [address] Hemoglobin (Bld) [Mass/Vol] 13.0 g/dL Normal 11.3-15. 9 [facility] Comment on above: Performed By: #### 1 800349442, 2594500254, 59807772, 9544867608, 0396886, 6743372, 7646089346, 9766225801 #### [facility] (DEFAULT) [address] [place] [address] Instr WBC 5.7 x10 Invalid Interpretation Code [facility] Comment on above: Performed By: #### 1 084211241, 0749787298, 23359527, 8569335152, 4988926, 8211580, 2032976808, 4277642131 #### [facility] (DEFAULT) [address] [place] [address] Man Diff? Auto Normal [facility] Comment on above: Performed By: #### 1 774388586, 1818801464, 81693171, 8530950182, 9572150, 7525714, 1468048962, 9119525563 #### [facility] (DEFAULT) [address] [place] [address] MCH (RBC) [Entitic mass] 27 pg Normal 24-34 [facility] Comment on above: Performed By: #### 1 875353383, 9096669134, 35371559, 3416065348, 6782798, 6779552, 1552852263, 1174042665 #### [facility] (DEFAULT) [address] [place] [address] MCHC (RBC) [Mass/Vol] 32 g/dL Normal 26-37 [facility] Comment on above: Performed By: #### 1 815787469, 7041055026, 76256685, 3508768913, 7266410, 8023348, 5863746299, 0394080170 #### [facility] (DEFAULT) [address] [place] [address]1155 MCV (RBC) [Entitic vol] 84 fL Normal 81-100 [facility] Comment on above: Performed By: #### 1 990431781, 4923050801, 11299486, 7456243394, 3653079, 1811999, 4619120418, 9712395714 #### [facility] (DEFAULT) [address] [place] [address] 10978 Platelet 282 x10 Normal 138-427 [facility] Comment on above: Performed By: #### 1 173868178, 3696511299, 93529711, 6956222699, 7317032, 3746970, 2157581813, 7914796847 #### [facility] (DEFAULT) [address] [place] [address] 06871 Platelet mean volume (Bld) [Entitic vol] 10.7 fL High 6.3-10.2 [facility] Comment on above: Performed By: #### 1 691218335, 2782310243, 26576897, 1025355643, 2749600, 7209323, 4739923022, 6006409304 #### [facility] (DEFAULT) [address] [place] [address] 47393 RBC 4.78 x10 Normal 3.70-5.30 [facility] Comment on above: Performed By: #### 1 185110525, 9609042982, 53166882, 7998815461, 8867496, 5361571, 7117536922, 1946502512 #### [facility] (DEFAULT) [address] [place] [address] 61555 WBC 5.7 x10 Normal 3.5-10.5 [facility] Comment on above: Performed By: #### 1 450751979, 2740909193, 88851353, 7891725408, 9333394, 9570417, 6814391367, 8906249810 #### [facility] (DEFAULT) [address] [place] [address] 43646 CMP Standardon 07-19-2022 eGFR Non AA >60 Invalid Interpretation Code [facility] Comment on above: Performed By: #### 1 012449262, 8886288101, 61569527, 3818217111, 2526988, 9568257, 1254668100, 5273675668 #### [facility] (DEFAULT) [address] [place] [address] 73517 eGFR AA >60 Invalid Interpretation Code [facility] Comment on above: Result Comment: 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 Kidney Failure is indicated at less than 15 ml/min/1.73m2 Performed By: #### 1 415306919, 5470919940, 30483405, 5131614982, 6661501, 4918615, 9441068742, 9189566642 #### [facility] (DEFAULT) [address] [place] [address] Albumin [Mass/Vol] 4.5 g/dL Normal 3.5-5.0 [facility] Comment on above: Performed By: #### 1 063151845, 7736353031, 67607741, 9827910287, 8501761, 8738002, 4759073059, 2733436733 #### [facility] (DEFAULT) [address] [place] [address] Albumin/Globulin [Mass ratio] 1.3 {ratio} Low 1.4-2.6 [facility] Comment on above: Performed By: #### 1 004254324, 7128649906, 69962134, 4718707996, 3470884, 5118503, 4069443467, 0261153244 #### [facility] (DEFAULT) [address] [place] [address] 19844 Alk Phos 63 IU/L Normal 32-91 [facility] Comment on above: Performed By: #### 1 857327292, 0949275581, 54893519, 4564816016, 1979613, 2019355, 9313984253, 4945286644 #### [facility] (DEFAULT) [address] [place] [address] ALT [Catalytic activity/Vol] 15.0 U/L Normal 8.0-29.0 [facility] Comment on above: Performed By: #### 1 173763084, 1537359486, 63826597, 7673742856, 9224440, 3591498, 7903055503, 5846574416 #### [facility] (DEFAULT) [address] [place] [address] 73665 Anion gap [Moles/Vol] 12.0 mmol/L Normal 5.0-19.0 [facility] Comment on above: Performed By: #### 1 874906579, 3226402513, 24742830, 9123495512, 2861913, 1327059, 1850928979, 8609122896 #### [facility] (DEFAULT) [address] [place] [address] AST [Catalytic activity/Vol] 23 U/L Normal 14-37 [facility] Comment on above: Performed By: #### 1 688839014, 1195726967, 67859987, 8715031970, 0880696, 6396219, 1847271538, 3617966116 #### [facility] (DEFAULT) [address] [place], [place] [address] Bili Total 0.7 mg/dL Normal 0.0-2.0 [facility] Comment on above: Performed By: #### 1 862192513, 8472299463, 00833149, 8098974156, 8020906, 5758394, 9743252492, 8724973035 #### [facility] (DEFAULT) [address] [place] [address] 09962 Calcium [Mass/Vol] 9.2 mg/dL Normal 8.9-10.3 [facility] Comment on above: Performed By: #### 1 193852390, 9510947580, 92355486, 2277826529, 1758943, 7694207, 6280259070, 1559090623 #### [facility] (DEFAULT) [address] [place] [address] 92805 Chloride [Moles/Vol] 106 mmol/L Normal 101-111 [facility] Comment on above: Performed By: #### 1 076683515, 3900813212, 23514649, 7545417178, 2674875, 2487080, 7736867023, 0254502327 #### [facility] (DEFAULT) [address] [place] [address] 41062 CO2 [Moles/Vol] 27 mmol/L Normal 21-32 [facility] Comment on above: Performed By: #### 1 721162005, 5548853265, 66137918, 9907029806, 5864039, 1977426, 1542299954, 4744638202 #### [facility] (DEFAULT) [address] [place] [address] Creatinine [Mass/Vol] 0.72 mg/dL Normal 0.30-1.00 [facility] Comment on above: Performed By: #### 1 620056760, 4533923621, 52419481, 5056933289, 6140892, 9644988, 9581913285, 1811614480 #### [facility] (DEFAULT) [address] [place] [address] Globulin (S) [Mass/Vol] 3.5 g/dL Normal 1.5-4.3 [facility] Comment on above: Performed By: #### 1 458499433, 1458734315, 79898209, 0194494284, 6762958, 4723682, 8641923552, 6747339492 #### [facility] (DEFAULT) [address] [place] [address] Glucose [Mass/Vol] 101.0 mg/dL Normal 56.0-144.0 [facility] Comment on above: Performed By: #### 1 612235980, 6222661491, 86365566, 4981133358, 8733354, 4855920, 7627115203, 8598552391 #### [facility] (DEFAULT) [address] [place] [address] Osmolality 281 mOsm/L Invalid Interpretation Code [facility] Comment on above: Performed By: #### 1 035518868, 6734122975, 37893511, 2526579667, 9544716, 2040078, 5993776085, 4523972861 #### [facility] (DEFAULT) [address] [place] [address] 07226 Potassium [Moles/Vol] 3.8 mmol/L Normal 3.6-5.1 [facility] Comment on above: Performed By: #### 1 647830846, 7154063562, 46242541, 5978494253, 0254170, 9462619, 0284954335, 8810219065 #### [facility] (DEFAULT) [address] [place] [address] 93298 Protein [Mass/Vol] 8.0 g/dL Normal 6.1-8.0 [facility] Comment on above: Performed By: #### 1 856574322, 8148615916, 83094802, 2726107233, 5608819, 8385071, 6765965604, 4980381271 #### [facility] (DEFAULT) [address] [place] [address] 19579 Sodium [Moles/Vol] 141.0 mmol/L Normal 136.0-144.0 [facility] Comment on above: Performed By: #### 1 063184718, 4678228860, 28857706, 6392636613, 0727198, 5791951, 9232071022, 4447949145 #### [facility] (DEFAULT) [address] [place] [address] 79553 Urea nitrogen [Mass/Vol] 11 mg/dL Normal 8-26 [facility] Comment on above: Performed By: #### 1 946678398, 4933691693, 43260331, 2423194624, 7340515, 9930199, 8455064196, 9502402910 #### [facility] (DEFAULT) [address] [place] [address] 00135 Urea nitrogen/Creatinine [Mass ratio] 15.0 mg/mg Normal 4.6-16.2 [facility] Comment on above: Performed By: #### 1 670595290, 2825557302, 29682154, 9889432343, 8526464, 2222657, 5385505521, 0145567264 #### [facility] (DEFAULT) [address] [place] [address] ED Note - Physicianon 2021 ED Note [...] stated that she did had gone to [place] today, and noted throughout the day, intermittently. [...] Medication Allergies. Medications: (Selected) Documented Medications Documented [facility] Prescription: 0 Refill(s) ibuprofen: 0 Refill(s). [...] normal conjunctiv (more content not included)... Normal [facility] Extra Redon 07-19-2022 Tube Collected Yes Invalid Interpretation Code [facility] Comment on above: Performed By: #### 1 438002820, 3437591085, 28437934, 2871519521, 3282498, 4947154, 4256771127, 1491391049 #### [facility] (DEFAULT) [address] [place] [address] 23147 Lipaseon 07-19-2022 Lipase Level 35.0 IU/L Normal 22.0-51.0 [facility] Comment on above: Performed By: #### 1 971408093, 4723299105, 01725542, 2850461776, 6644480, 6473705, 9050518277, 8287381971 #### [facility] (DEFAULT) [address] [place] [address] 43715 Test Urine 1on U Preg Negative Normal [facility] Comment on above: Performed By: #### 2 656509094, 828737718 #### [facility] (DEFAULT) [address] [place] [address] 64228 U Preg Internal Control [facility] Comment on above: Performed By: #### 2 734712473, 401252084 #### [facility] (DEFAULT) [address] [place] [address] 62816 TnI HSon 07-19-2022 Troponin I High Sensitivity 3 pg/mL Normal <=15 [facility] Comment on above: Result Comment: Male Baseline Delta 1Hr (Note pg/mL=ng/L) <20pg/mL 50-60% >20pg/mL 20% Female Baseline Delta 1Hr <15pg/mL 50-60% >15pg/mL 20% Other Baseline Delta 1Hr <18ng/mL 50-60% >18ng/mL 20% ([place] [employer] Guidelines April 2018) Performed By: #### 1 637924230, 5983881469, 06882145, 5400324719, 0511353, 3054539, 8497100780, 2764909320 #### [facility] (DEFAULT) [address] [place] [address] UA w Micro, if Ind Standardo n 07-19-2022 Breakpoint UA Normal [facility] Comment on above: Performed By: #### 1 085166220, 8421068980, 27592497, 2148554814, 0896207, 8081598, 5296432892, 8698600131 #### [facility] (DEFAULT) [address] [place] [address] 14804 Color (U) Yellow Normal [facility] Comment on above: Performed By: #### 1 562205985, 5442348945, 08378104, 5220921341, 4251035, 7297928, 6296693756, 9059563976 #### [facility] (DEFAULT) [address] [place] [address] 19314 Glucose (U) [Mass/Vol] Negative Normal [facility] Comment on above: Performed By: #### 1 596287980, 5244401464, 27036126, 6061184683, 5394103, 7778829, 0994832256, 6882806034 #### [facility] (DEFAULT) [address] [place] [address] 05790 Ketones Ql (U) Negative Normal [facility] Comment on above: Performed By: #### 1 245844992, 4750053639, 09170682, 7268724023, 8409218, 0799874, 2655663097, 9105827094 #### [facility] (DEFAULT) [address] [place] [address] 59628 Micro? Not Indicated Invalid Interpretation Code [facility] Comment on above: Result Comment: Resu lt created by rule GL_MAGR_ADD_UA_MICRO Result created by rule GL_MAGR_ADD_UA_MICRO Performed By: #### 1 022574816, 5544189397, 02776083, 3917587138, 1131626, 8990911, 0257787570, 7377210924 #### [facility] (DEFAULT) [address] [place] [address] UA Bilirubin Negative Normal [facility] Comment on above: Performed By: #### 1 745018085, 3200402358, 38421746, 6844755350, 3548800, 3696199, 4494299023, 2533348878 #### [facility] (DEFAULT) [address] [place] [address] UA Blood Negative Normal NEGATIVE [facility] Comment on above: Performed By: #### 1 961830048, 4947518790, 20210639, 1536725693, 9641926, 5743176, 7983497397, 3966869516 #### [facility] (DEFAULT) [address] [place] [address] UA Clarity CLEAR Normal CLEAR [facility] Comment on above: Performed By: #### 1 754168359, 7608496325, 89216066, 1696518125, 5601839, 5275851, 5550382577, 8708488665 #### [facility] (DEFAULT) [address] [place] [address] UA Leuk Est Negative Normal NEGATIVE [facility] Comment on above: Performed By: #### 1 710879571, 4625953999, 27613433, 5133826278, 8423754, 4203132, 6240108496, 1180857809 #### [facility] (DEFAULT) [address] [place] [address] UA Nitrite Negative Normal NEGATIVE [facility] Comment on above: Performed By: #### 1 527669092, 0317414864, 88724375, 7405489310, 2597045, 5393208, 6237787167, 3730662315 #### [facility] (DEFAULT) [address] [place] [address] UA pH 7.0 Normal 5-8 [facility] Comment on above: Performed By: #### 1 642175885, 5359158497, 78187781, 3186963548, 2195649, 5945156, 7176179049, 2921277545 #### [facility] (DEFAULT) [address] [place] [address] UA Protein Negative Normal NEGATIVE [facility] Comment on above: Performed By: #### 1 058377784, 5156465906, 86816946, 7329647557, 3944940, 6027665, 9537222164, 0351615092 #### [facility] (DEFAULT) [address] [place] [address] UA Spec Grav 1.020 Normal 1.001-1.035 [facility] Comment on above: Performed By: #### 1 290618012, 4383575265, 06341352, 7179318736, 8210979, 8035289, 8394291392, 7746735397 #### [facility] (DEFAULT) [address] [place] [address] UA Urobilinogen 1.0 mg/dL Normal 0.2-1.0 [facility] Comment on above: Performed By: #### 1 218683640, 8487488556, 47263201, 6426206466, 5910871, 8107486, 1335325644, 9218817518 #### [facility] (DEFAULT) [address] [place] [address] Urine Source Clean Catch Normal [facility] Comment on above: Performed By: #### 1 401578676, 7016125019, [id number] #### [facility] (DEFAULT) [address] [place] [address] Vital Signs Date Time Vital Sign Value Performing Clinician Facility 03-29-2025 13:13-0400 Body mass index (BMI) [Ratio] 31.64 kg/m2 Luba LAU Work Phone: [facility] 03-29-2025 13:13-0400 Body weight 78.47 kg Luba Ellis PA Work Phone: [facility] 03-29-2025 13:13-0400 Diastolic blood pressure 70 mm[Hg] Luba Ellis PA Work Phone: [facility] 03-29-2025 13:13-0400 Systolic blood pressure 120 mm[Hg] Luba Ellis PA Work Phone: [facility] 01-18-2025 16:27-0400 Body height 157.5 cm Jennifer Hemmer PA Work Phone: [facility] 01-18-2025 16:27-0400 Body mass index (BMI) [Ratio] 31.53 kg/m2 Jennifer Hemmer PA Work Phone: [facility] 01-18-2025 16:27-0400 Body weight 78.2 kg Jennifer Hemmer PA Work Phone: [facility] 01-18-2025 16:27-0400 Diastolic blood pressure 82 mm[Hg] Jennifer Hemmer PA Work Phone: [facility] 01-18-2025 16:27-0400 Heart rate 79 /min Jennifer Hemmer PA Work Phone: [facility] 01-18-2025 16:27-0400 Respiratory rate 16 /min Jennifer Hemmer PA Work Phone: [facility] 01-18-2025 16:27-0400 SaO2% (BldA) [Mass fraction] 99 % Jennifer Hemmer PA Work Phone: [facility] 01-18-2025 16:27-0400 Systolic blood pressure 124 mm[Hg] Jennifer Hemmer PA Work Phone: [facility] 07-08-2024 13:37-0400 Body mass index (BMI) [Ratio] 29.96 kg/m2 Luba [place] PA Work Phone: [facility] 07-08-2024 13:37-0400 Body weight 74.3 kg Luba Corral PA Work Phone: [facility] 07-08-2024 13:37-0400 Diastolic blood pressure 74 mm[Hg] Luba Corral PA Work Phone: [facility] 07-08-2024 13:37-0400 Systolic blood pressure 110 mm[Hg] uLba Corral PA Work Phone: [facility] 06-24-2024 10:06-0400 Body height 157.5 cm Jennifer Hemmer PA Work Phone: [facility] 06-24-2024 10:06-0400 Body mass index (BMI) [Ratio] 29.92 kg/m2 Jennifer Hemmer PA Work Phone: [facility] 06-24-2024 10:06-0400 Body weight 74.21 kg Jennifer Hemmer PA Work Phone: [facility] 06-24-2024 10:06-0400 Diastolic blood pressure 76 mm[Hg] Jennifer Hemmer PA Work Phone: [facility] 06-24-2024 10:06-0400 Heart rate 100 /min Jennifer Hemmer PA Work Phone: [facility] 06-24-2024 10:06-0400 Respiratory rate 17 /min Jennifer Hemmer PA Work Phone: [facility] 06-24-2024 10:06-0400 SaO2% (BldA) [Mass fraction] 97 % Jennifer Hemmer PA Work Phone: [facility] 06-24-2024 10:06-0400 Systolic blood pressure 110 mm[Hg] Jennifer Hemmer PA Work Phone: [facility] 06-22-2024 13:42-0400 Body mass index (BMI) [Ratio] 30.07 kg/m2 Davin Viktoria DO Work Phone: [facility] 06-22-2024 13:42-0400 Body weight 74.57 kg Davin Viktoria DO Work Phone: [facility] 06-22-2024 13:42-0400 Diastolic blood pressure 72 mm[Hg] Davin Viktoria DO Work Phone: [facility] 06-22-2024 13:42-0400 Systolic blood pressure 120 mm[Hg] Davin Viktoria DO Work Phone: [facility] 06-14-2024 11:14-0400 Body height 157.5 cm Davin Viktoria DO Work Phone: [facility] 06-14-2024 11:14-0400 Body mass index (BMI) [Ratio] 29.81 kg/m2 Davin Viktoria DO Work Phone: [facility] 06-14-2024 11:14-0400 Body weight 73.94 kg Davin Viktoria DO Work Phone: [facility] 06-14-2024 11:14-0400 Diastolic blood pressure 78 mm[Hg] Davin Viktoria DO Work Phone: [facility] 06-14-2024 11:14-0400 Systolic blood pressure 106 mm[Hg] Davin Viktoria DO Work Phone: [facility] 04-14-2024 12:31-0400 Body height 157.48 cm [facility] 04-14-2024 12:31-0400 Body mass index (BMI) [Ratio] 29.5 kg/m2 [facility] 04-14-2024 12:31-0400 Body temperature 98.2 [degF] [facility] 04-14-2024 12:31-0400 Body weight 73.25 kg [facility] 04-14-2024 12:31-0400 Diastolic blood pressure 80 mm[Hg] [facility] 04-14-2024 12:31-0400 Heart rate 102 /min [facility] 04-14-2024 12:31-0400 Respiratory rate 16 /min [facility] 04-14-2024 12:31-0400 SaO2% (BldA) [Mass fraction] 99 % [facility] 04-14-2024 12:31-0400 Systolic blood pressure 125 mm[Hg] [facility] 04-09-2024 11:23-0400 Diastolic blood pressure 87 mm[Hg] [facility] 04-09-2024 11:23-0400 Heart rate 74 /min [facility] 04-09-2024 11:23-0400 Respiratory rate 16 /min [facility] 04-09-2024 11:23-0400 SaO2% (BldA) [Mass fraction] 97 % [facility] 04-09-2024 11:23-0400 Systolic blood pressure 120 mm[Hg] [facility] 12-16-2023 13:15-0400 Body mass index (BMI) [Ratio] 30.12 kg/m2 [address] 12-16-2023 13:15-0400 Body weight 74.[address] 12-16-2023 13:15-0400 Diastolic blood pressure 82 mm[Hg] [facility] 12-16-2023 13:15-0400 Systolic blood pressure 122 mm[Hg] [address] 11-19-2023 10:31-0500 Body mass index (BMI) [Ratio] 30.91 kg/m2 [facility] Risk [facility] 11-19-2023 10:31-0500 Body temperature 98.1 [degF] [facility] Risk [facility] 11-19-2023 10:31-0500 Body weight 76.66 kg [facility] Risk [facility] 11-19-2023 10:31-0500 Diastolic blood pressure 76 mm[Hg] [facility] Risk [facility] 11-19-2023 10:31-0500 Systolic blood pressure 132 mm[Hg] [facility] Risk [facility] 04-07-2023 14:30-0400 Body weight 69.85 kg Mishel Dimas Other [employer] Other 04-07-2023 14:30-0400 Diastolic blood pressure 83 mm[Hg] Mishel Dimas Other [employer] Other 04-07-2023 14:30-0400 Respiratory rate 18 /min Mishel Dimas Other [employer] Other 04-07-2023 14:30-0400 SaO2% (BldA) [Mass fraction] 99 % Mishel Dimas Other [employer] Other 04-07-2023 14:30-0400 Systolic blood pressure 135 mm[Hg] Mishel Dimas Other [employer] Other 07-31-2021 15:30-0400 Body height 160.02 cm Mishel Dimas Other [employer] Other 07-31-2021 15:30-0400 Body mass index (BMI) [Ratio] 22.67 kg/m2 Mishel Dimas Other [employer] Other 07-31-2021 15:30-0400 Body temperature 98.2 [degF] Mishel Dimas Other [employer] Other 07-31-2021 15:30-0400 Body weight 58.06 kg Mishel Dimas Other [employer] Other 07-31-2021 15:30-0400 Diastolic blood pressure 101 mm[Hg] Mishel Dimas Other [employer] Other 07-31-2021 15:30-0400 Respiratory rate 18 /min Mishel Dimas Other [employer] Other 07-31-2021 15:30-0400 SaO2% (BldA) [Mass fraction] 100 % Mishel Dimas Other [employer] Other 07-31-2021 15:30-0400 Systolic blood pressure 135 mm[Hg] Mishel Dimas Other [employer] Other Encounters Encounter Date Encounter Type Care Provider Facility Start: 03-29-2025 End: 03-29-2025 Bamboo flowsheet Luba LAU Work Phone: [facility] Start: 03-29-2025 End: 03-29-2025 Bamboo flowsheet Luba LAU Work Phone: [facility] Start: 03-29-2025 End: 03-29-2025 Clinisync Result Encounter Luba LAU Work Phone: [facility] Unsolicited Start: 03-29-2025 End: 03-29-2025 Patient encounter procedure Luba LAU Work Phone: [facility] Start: 03-29-2025 End: 03-29-2025 Periodic preventive med est patient 18-39 yrs Luba LAU Work Phone: [facility] Comment on above: Well woman exam with routine gynecological exam Start: 03-19-2025 End: 03-19-2025 Clinisync Result Encounter Jennifer LAU Work Phone: [facility] Unsolicited Start: 03-19-2025 End: 03-19-2025 Clinisync Result Encounter Jennifer LAU Work Phone: [facility] Unsolicited Start: 01-18-2025 End: 01-18-2025 Office outpatient visit [...] PA Work Phone: [facility] Start: 08-20-2024 [...] cycle Start: 06-24-2024 End: 06-24-2024 ambulatory JENNIFER ALANISALBERT Not Available Start: 06-22-2024 End: 06-22-2024 Patient [...] Not Available Start: 04-14-2024 End: 04-14-2024 ambulatory [facility] Work Phone: Start: 04-14-2024 End: 04-14-2024 Patient encounter procedure [facility] [place] Work Phone: Start: 04-09-2024 End: 04-09-2024 ambulatory [facility] Work Phone: Start: 04-09-2024 End: 04-09-2024 Encounter for general adult medical examination without abnormal findings [facility] Start: 04-09-2024 End: 04-09-2024 Patient encounter procedure [facility] Work Phone: Start: 02-03-2024 End: 02-03-2024 ambulatory MARCK STRAUSS Not Available Start: 01-02-2024 End: 01-02-2024 ambulatory Shivani Ghosh Facility:[facility] Start: 01-02-2024 End: 01-02-2024 ambulatory DO Mishel Judie Work Phone: [facility] Work Phone: Start: 01-02-2024 End: 01-02-2024 Patient encounter procedure DO Mishel Judie Work Phone: [facility]- Visit Work Phone: Start: 12-16-2023 End: 12-16-2023 ambulatory MISHEL Mi JUDIE [facility] Start: 12-16-2023 End: 12-16-2023 care visit [facility] Resident [address] [place] [address] - Women's Services Comment on above: Encounter for postpa rtum visit (Primary Dx) Start: 12-06-2023 Encounter Mishel Melissa salcido DO Work Phone: [address] NICU Start: 12-04-2023 Encounter Mishel Melissa salcido DO Work Phone: [address] NICU Start: 12-01-2023 Encounter Mishel Melissa salcido DO Work Phone: [address] NICU Start: 11-28-2023 Encounter Mishel Melissa salcido DO Work Phone: [address] NICU Start: 11-25-2023 Encounter Mishel Melissa salcido DO Work Phone: [address] NICU Start: 11-21-2023 Encounter Mishel salcido DO Work Phone: [address] NICU Start: 11-19-2023 End: 11-19-2023 ambulatory MISHEL A [facility] Start: 11-19-2023 End: 11-19-2023 Patient encounter procedure [facility] - [facility]'s Services Comment on above: Surgical followup (P rimary Dx) Start: 11-18-2023 Encounter Mishel salcido DO Work Phone: [address] Start: 11-17-2023 Encounter Mishel salcido DO Work Phone: [address] NICU Start: 11-15-2023 Encounter Mishel salcido DO Work Phone: [address] Start: 11-13-2023 End: 11-13-2023 [facility]: 11-06-2023 End: 11-07-2023 Evaluation and management of inpatient [facility] Start: 10-30-2023 End: 10-31-2023 Evaluation and management of inpatient [facility] Start: 10-23-2023 End: 10-24-2023 Evaluation and management of inpatient [facility] Start: 10-16-2023 End: 10-17-2023 Evaluation and management of inpatient [facility] Start: 10-09-2023 End: 10-10-2023 Evaluation and management of inpatient [facility] Start: 10-02-2023 End: 10-03-2023 Evaluation and management of inpatient [facility]NA [facility]OB [facility] Start: 09-24-2023 End: 09-25-2023 Evaluation and management of inpatient GIANNA [facility] Start: 09-15-2023 End: 09-16-2023 [facility] Start: 09-08-2023 End: 09-09-2023 Evaluation and management of inpatient [facility]LO [facility] Start: 09-04-2023 End: 09-05-2023 Evaluation and management of inpatient GIANNA [facility] Start: 08-28-2023 End: 11-13-2023 Evaluation and management of inpatient [facility] Start: 04-07-2023 End: 04-07-2023 ambulatory Mishel Dimas Other [employer] Other Start: 04-07-2023 Encounter for genera l adult medical examination without abnormal findings Mishel Dimas [facility] Start: 04-07-2023 Periodic preventive med est patient 18-39 yrs Mishel Dimas [facility] Start: 03-26-2023 End: 03-26-2023 ambulatory Mishel Dimas Facility:[facility] Start: 03-26-2023 End: 03-26-2023 ambulatory DO Mishel Dimas Work Phone: [facility] Work Phone: Start: 03-26-2023 End: 03-26-2023 Patient encounter procedure DO Mishel Dimas Work Phone: [facility] [place] Work Phone: Start: 03-19-2023 End: 03-19-2023 ambulatory Mishel Dimas Other [employer] Other Start: 03-19-2023 Encounter for other specified special examinations Mishel Dimas [facility] Start: 03-19-2023 Telephone encounter Mishel Graff i [facility] Start: 08-06-2022 End: 08-06-2022 ambulatory Mishel Dimas Other [employer] Other Start: 08-06-2022 Telephone encounter Mishel Graff i [facility] Start: 07-29-2022 End: 07-29-2022 ambulatory Mishel Dimas Other [employer] Other Start: 07-29-2022 Telephone encounter Mishel Graff i [facility] Start: 07-22-2022 End: 07-22-2022 ambulatory Mishel Dimas Other [employer] Other Start: 07-22-2022 Telephone encounter Mishel Graff i [facility] Start: 07-19-2022 End: 07-20-2022 Emergency department patient visit Ahmet Moreno Facility:[facility] Start: 07-19-2022 End: 07-20-2022 ambulatory MISHEL Stark JACEKCAMMY Facility:[facility] Start: 11-05-2021 End: 11-05-2021 ambulatory Mishel Dimas Other [employer] Other Start: 11-05-2021 Telephone encounter Mishel Graff i [facility] Start: 07-31-2021 End: 07-31-2021 ambulatory Mishel Dimas Other [employer] Other Start: 07-31-2021 Office outpatient vi sit 25 minutes Mishel Dimas [facility] Procedures Date Procedure Procedure Detail Performing Clinician Start: 03-29-2025 [facility] CMP (CMP) (FOR REMOTE [facility] USE) Luba Corral PA Work Phone: Start: 03-19-2025 [facility] FABY LAU Work Phone: Start: 08-20-2024 ALL DEHYDROEPIANDROSTERONE Davin Viktoria D O Work Phone: Start: 08-13-2024 ALL DHEA SULFATE Davin Viktoria DO Work Phone: Start: 07-08-2024 TELEGRAPHIC TYPEWRITER OPERATOR INSERTION/REMOVAL OF CONTRACEPTIVE CAPSULE Luba LAU Work Phone: Start: 06-22-2024 IUD INSERTION Davin Viktoria DO Work Phone: Start: 06-22-2024 Urine test visual color cmprsn meths Davin Viktoria DO Work Phone: Start: 06-18-2024 ALL CBC WITH AUTO DIFF Davin Viktoria DO Work Phone: Start: 04-14-2024 Quick Strep (POC) Start: 12-16-2023 care Care GIANNA ELIZABETH Start: 12-16-2023 Adult depression screening assessment Chs 2yr Start: 11-19-2023 Adult depression screening assessment [facility]s Risk Plan of Treatment Date Care Activity Detail Author Start: 09-23-2033 DTaP,Tdap and Td Vaccines (8 - Td or Tdap) DTaP,Tdap and Td Vaccines (8 - Td or Tdap) [facility] Start: 04-04-2026 End: 04-04-2026 Patient encounter procedure 04/04/2026 10:00 AM EDT Office Visit [facility] [address] [place] [address] Luba Corral PA [address] [address] [facility] Start: 06-24-2025 End: 06-24-2025 Patient encounter procedure 06/24/2025 10:30 AM EDT Office Visit [facility] [address] [facility] [address] [place] [id number] Jennifer Herrera PA [address] [place] [address] [place] [address] [facility] Start: 05-30-2025 Influenza vaccination [facility] Start: 03-29-2025 End: 03-29-2025 Patient encounter procedure 03/29/2025 1:00 PM EDT Office Visit [facility] [address] [place] [phone] Luba Corral PA [address] [place], [place] [id number] [facility] Start: 03-22-2025 End: 03-22-2025 Patient encounter procedure 03/22/2025 11:00 AM EDT Office Visit [facility] [address] [place] [address] Davin Blum DO [address] [place] [place], [place] [id number] [facility] Start: 01-18-2025 End: 01-18-2025 Patient encounter procedure 01/18/2025 4:30 PM EDT Office Visit [facility] [address] [place] [address] [place] [address] Jennifer Herrera PA [address] [address] [place] [address] Arrived [facility] Comment on above: Arrived Start: 12-15-2024 Adult BMI Screening Adult BMI Screen ing [facility] Start: 12-15-2024 Depression Screening Depression Scre ening [facility] Start: 12-15-2024 Tobacco Screening Tobacco Screening [facility] Start: 11-19-2024 Adult BMI Screening Adult BMI Screen ing [facility] Start: 11-19-2024 Depression Screening Depression Scre ening [facility] Start: 11-19-2024 Tobacco Screening Tobacco Screening [facility] Start: 10-04-2024 Tobacco Screening Tobacco Screening [facility] Start: 09-15-2024 Adult BMI Screening Adult BMI Screen ing [facility] Start: 08-29-2024 Screening for Chlamy omaira trachomatis Chlamydia Screening [facility] Start: 07-08-2024 End: 07-08-2024 Patient encounter procedure 07/08/2024 1:30 PM EDT Procedure Visit [facility] [address] [place] [phone] Luba Corral PA [address] [place], [place] [id number] [facility] Start: 06-24-2024 End: 06-24-2024 Patient encounter procedure [facility] Comment on above: Arrived Start: 06-22-2024 End: 06-22-2024 Patient encounter procedure 06/22/2024 1:30 PM EDT Procedure Visit [facility] [address] [place] [address] Davin Blum DO [address] [place] [place], [place] [id number] [facility] Start: 06-14-2024 End: 06-14-2025 aPTT in Blood by Coagulation assay APTT Lab Routine Menorrhagia with regular cycle Expected: 06/14/2024 (Approximate), Expires: 06/14/2025 [facility] Comment on above: Expected: 06/14/2024 (Approximate), Expires: 06/14/2025 Start: 06-14-2024 End: 06-14-2025 DHEA DHEA Lab Routine Menorrhagia with regular cycle Expected: 06/14/2024 (Approximate), Expires: 06/14/2025 [facility] Comment on above: Expected: 06/14/2024 (Approximate), Expires: 06/14/2025 Start: 06-14-2024 End: 06-14-2025 US for US PELVIS-TRANSVAG IF INDICATED Imaging Routine Menorrhagia with regular cycle Expected: 06/14/2024 (Approximate), Expires: 06/14/2025 [facility] Comment on above: Expected: 06/14/2024 (Approximate), Expires: 06/14/2025 Start: 06-14-2024 End: 06-14-2024 Patient encounter procedure 06/14/2024 11:10 AM EDT Office Visit [facility] [address] [place] [address] Davin Blum, [address] [place] [address] Arrived [facility] Comment on above: Arrived Start: 05-30-2024 Influenza vaccination Influenza Vacc ine (#1) [facility] Start: 12-16-2023 End: 12-16-2023 ambulatory 12/16/2023 1:30 PM EDT Visit [facility] [address] [place] [address] [facility] Start: 11-19-2023 End: 11-19-2023 Patient encounter procedure 11/19/2023 10:45 AM EST Office [facility] [address] [place] [address] [facility] Start: 05-30-2023 COVID-19 Vaccine ( season) COVID-19 Vaccine ( season) [facility] Start: 2021 Adult BMI Follow Up Plan Adult BMI Follow Up Plan [facility] Start: 2015 Depression Screening Depression Scre [facility] 25-hydroxyvitamin D3 [Mass/volume] in Serum or Plasma Vitamin D 25 hydroxy Total Lab Routine Weight gain PCOS (polycystic ovarian syndrome) Other fatigue Ordered: 01/18/[address] [facility] Work Phone: Comment on above: Ordered: 01/18/2025 CBC panel - Blood by Automated count CBC Lab Routine Iron deficiency anemia due to chronic blood loss Other fatigue Ordered: 01/18/[address] [facility] Comment on above: Ordered: 01/18/2025 CBC W Auto Different ial panel - Blood CBC and differential Lab Routine Menorrhagia with regular cycle Ordered: 06/14/[address] [facility] Comment on above: Ordered: 06/14/2024 Comprehensive metabo lic 2000 panel - Serum or Plasma Comprehensive metabolic panel Lab Routine Well woman exam with routine gynecological exam Ordered: 03/29/[address] [facility] Comment on above: Ordered: 03/29/2025 Cytology Cervical or vaginal smear or scraping study Pap Smear Pathology and Cytology Routine Well woman exam with routine gynecological exam Ordered: 03/29/[address] [facility] Work Phone: Comment on above: Ordered: 03/29/2025 DHEA-sulfate DHEA-sulfate Lab Routine Menorrhagia with regular cycle Ordered: 06/14/[address] [facility] Comment on above: Ordered: 06/14/2024 Follicle stimulating hormone Follicle stimulating hormone Lab Routine Menorrhagia with regular cycle Ordered: 06/14/[address] [facility] Comment on above: Ordered: 06/14/2024 hCG, quantitative, hCG, quantitative, Lab Routine Menorrhagia with regular cycle Ordered: 06/14/[address] [facility] Comment on above: Ordered: 06/14/2024 Hemoglobin A1c/Hemoglobin.total in Blood Hemoglobin A1c Lab Routine Menorrhagia with regular cycle Ordered: 06/14/[address] [facility] Comment on above: Ordered: 06/14/2024 Hemoglobin A1c/Hemoglobin.total in Blood Hemoglobin A1c Lab Routine Well woman exam with routine gynecological exam Ordered: 03/29/[address] [facility] Comment on above: Ordered: 03/29/2025 Iron + transferrin + TIBC Iron + transferrin + TIBC Lab Routine Iron deficiency anemia due to chronic blood loss Other fatigue Ordered: 01/18/[address] [facility] Comment on above: Ordered: 01/18/2025 Luteinizing hormone Luteinizing hormone Lab Routine Menorrhagia with regular cycle Ordered: 06/14/[address] [facility] Comment on above: Ordered: 06/14/2024 Prothrombin time (PT ) in Blood by Coagulation assay Protime-INR Lab Routine Menorrhagia with regular cycle Ordered: 06/14/[address] [facility] Work Phone: Comment on above: Ordered: 06/14/2024 Thyrotropin [Units/volume] in Serum or Plasma TSH Lab Routine Menorrhagia with regular cycle Ordered: 06/14/[address] [facility] Comment on above: Ordered: 06/14/2024 Thyroxine (T4) free [Mass/volume] in Serum or Plasma T4, free Lab Routine Menorrhagia with regular cycle Ordered: 06/14/2024 [facility] Comment on above: Ordered: 06/14/2024 TSH W/REFLEX TO FT4 TSH W/REFLEX TO FT4 Lab Routine Weight gain Family history of thyroid disease Other fatigue Ordered: 01/18/2025 [facility] Comment on above: Ordered: 01/18/2025 [facility] Immunizations Immunization Date Immunization Notes Care Provider Gordon winter 09-23-2023 tetanus toxoid, redu stanislaw diphtheria toxoid, and acellular pertussis vaccine, adsorbed Mishel Graffi DO Work Phone: [facility] 09-22-2023 influenza, injectabl e, quadrivalent, preservative free Mishel Graffi DO Work Phone: [facility] 09-22-2023 influenza virus vaccine, unspecified formulation Davin Blum DO Work Phone: [facility] 05-07-2021 meningococcal polysaccharide (groups A, C, Y and W-135) diphtheria toxoid conjugate vaccine (MCV4P) Mishel Rasheedruthbari Other [facility] 03-28-2020 tetanus toxoid, redu stanislaw diphtheria toxoid, and acellular pertussis vaccine, adsorbed DO Mishel Dimas Work Phone: [facility] 04-08-2016 poliovirus vaccine, inactivated Mishel Rasheedcki Other [employer] Other 04-08-2016 human papilloma viru s vaccine, quadrivalent Mishel Rasheedcki Other [facility] 04-08-2016 meningococcal polysaccharide (groups A, C, Y and W-135) diphtheria toxoid conjugate vaccine (MCV4P) Mishel Rasheedruthi Other [facility] 04-08-2016 measles, mumps and rubella virus vaccine Mishel Rasheedcki Other [facility] 04-08-2016 poliovirus vaccine, unspecified formulation DO Mishel Dimas Work Phone: [facility] 04-08-2016 varicella virus vaccine Rajesh zuhair Dimas Other [facility] Payers Date Payer Category Payer Self-pay [id number] 2022 Unknown [employer]UM [id number] 1 2017 [employer] [id number] [id number] 15 2017 Blue Cross Blue [address] [facility] [id number] 2014 Blue Cross Blue Shield [employer]AN [id number] 2014 Unknown [id number] 2003 Unknown [id number] 2.16.84 0.1.976116.3.579.2.718 2003 Unknown [id number] 2.16.84 0.1.153371.3.579.2.718 2003 Unknown [id number] 2.16.8 40.1.419349.3.579.2.1286 2003 Unknown [id number] 2.16.8 40.1.767161.3.579.2.1286 2003 Unknown [id number] 2.16.8 40.1.070828.3.579.2.1286 2003 Unknown [id number] 2.16.8 40.1.466642.3.579.2.1286 2003 Unknown [id number] 2.16.8 40.1.783946.3.579.2.1286 2003 Unknown [id number] 2.16.8 40.1.231732.3.579.2.1286 2003 Unknown [id number] 2.16.8 40.1.638547.3.579.2.1286 2003 Unknown [id number] 2.16.8 40.1.885798.3.579.2.1285 2003 Unknown [id number] 2.16.8 40.1.095863.3.579.2.1285 2003 Unknown [id number] 2.16.8 40.1.979268.3.579.2.1285 2003 Unknown [id number] 2.16.8 40.1.760957.3.579.2.1285 2003 Unknown [id number] 2.16.8 40.1.728653.3.579.2.1285 2003 Unknown [id number] 2.16.8 40.1.348396.3.579.2.1285 2003 Unknown [id number] 2.16.8 40.1.354413.3.579.2.1285 2003 Unknown [id number] 2.16.8 40.1.367844.3.579.2.1285 2003 Unknown [id number] 2.16.84 0.1.265172.3.579.2.1258 2003 Unknown [id number] 2.16.84 0.1.074630.3.579.2.1258 2003 Unknown [id number] 2.16.84 0.1.201153.3.579.2.1258 2003 Unknown [id number] 2.16.84 [id number] 2003 Unknown [id number] [id number] 2003 Unknown [id number] 2.16.84 [id number] Unknown [id number] [id number] [id number] Unknown [id number] [id number] Social History Date Type Detail Facility Start: 01-28-2024 End: 01-18-2025 Sex Assigned At [facility] Start: 11-02-2021 End: 06-04-2023 Tobacco smoking status NHIS Never smoked tobacco (finding) [facility] Start: 2005 Sex Assigned At Female [facility] Start: 06-04-2023 End: 08-28-2023 Tobacco use and exposure Smokeless tobacco non-user [facility] Start: 07-08-2024 End: 01-18-2025 Alcoholic beverage intake Lifetime non-drinker (finding) [facility] Start: 01-28-2024 End: 01-18-2025 History of Social function [facility] Do you belong to any clubs or organizations such as mormon groups, unions, fraternal [...] assigned at Not on file [facility] Start: 11-12-2023 End: 12-16-2023 Alcohol intake Current non-drinker of alcohol (finding) [facility] Start: 08-28-2023 Gender identity Identifies as female gender (finding) [facility] Start: 08-28-2023 Sexual orientation Heterosexual (finding) [facility] Functional Status Date Assessment Result Facility 01-18-2025 Patient Health Quest ionnaire 2 item (PHQ-2) [Reported] [facility] Clinical Notes 07-30-2017 to 03-29-2025 SID Hernandez - 03/29/2025 1:00 PM SID Nevarez - 01/18/2025 4:30 PM Ciarra Santacruz LPN - 07/08/2024 1:30 PM SID Nevarez - 06/24/2024 10:00 AM EDT Note Date & Type Note Facility 03-29-2025 History of Presen t illness Narrative Reason [...] Diagnosis Date Noted Antepartum bleeding, third trimester (HHS-HCC) 06/24/2024 Abdominal cramping complicating , antepartum (HHS-HCC) 06/24/2024 Other acute sinusitis 10/27/2017 UTI (urinary tract infection) 06/24/2024 Adenoid hypertrophy 06/23/2017 Excessive and frequent menstruation 06/24/2024 Past Medical History: Diagnosis Date Anemia Irregular menses Ovarian cyst Polycystic ovary syndrome Type A blood, Rh positive Urinary tract infection HISTORY PAST MEDICAL HISTORY SOCIAL HISTORY Past Medical History: Diagnosis Date Abdominal cramping complicating , antepartum (HHS-HCC) 06/24/2024 Anemia Antepartum bleeding, third trimester (HHS-HCC) 06/24/2024 Irregular menses Ovarian cyst Polycystic ovary [...] nursing note reviewed. Exam conducted with a commercial airplane pilot present. Vitals: Estimated body mass index is 31.64 kg/m as calculated from the following: Height [...] of: SID Hernandez documented in this encounter [facility] 01-18-2025 History of Presen t illness Narrative [...] Davin Blum DO 52 mg at 06/22/24 1346 I [...] Appointment As Scheduled. documented in this encounter [facility] 07-08-2024 History of Presen t illness Narrative [...] nursing note reviewed. Exam conducted with a commercial airplane pilot present. Vitals: Estimated body mass index is [...] of: SID Hernandez documented in this encounter [facility] 06-24-2024 History of Presen t illness Narrative [...] is still having cramping. Has not called ASSET ACCOUNTANT d/t she had this appt and was [...] legs etc. She and her decided for pt's health that she was done having children, has [...] up for Wellness. documented in this encounter [facility] 06-22-2024 History of Presen t illness Narrative [...] nursing note reviewed. Exam conducted with a commercial airplane pilot present. Vitals: Estimated body mass index is [...] given: yes Instructions and paperwork completed: yes Dameron protocol: Patient states understanding of procedure being [...] Davin Blum DO documented in this encounter [facility] 06-14-2024 History of Presen t illness Narrative [...] nursing note reviewed. Exam conducted with a commercial airplane pilot present. Vitals: Estimated body mass index is [...] Davin Blum DO documented in this encounter [facility] 12-16-2023 History of Presen t illness Narrative [facility] Joselin Valenzuela is a [...] (eight) hours., Disp: 30 tablet, Rfl: 0 -zmhf-ybdsi-zexzk7 29-1-400 mg combo pack,tablet & cap,, Take [...] as needed. Patient has established care with maxillofacial surgeon close to home. Patient lives an hour away and would prefer to follow up with her maxillofacial surgeon Julieth Edwards MD Executive Chef Resident, PGY-2 Resident Attestation: The patient was [...] doing well. Incision healing well. 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 Evelyne Barger DO documented in this encounter [facility] 12-06-2023 Miscellaneous Notes Formattin g of this [...] transport of breast milk home. [facility] - [phone] documented in this encounter [facility] 12-06-2023 Obstetrics Note This note was copied [...] transport of breast milk home. [facility] - [phone] [facility] 12-04-2023 Miscellaneous Notes Formattin g of this [...] any other assistance. documented in this encounter [facility] 12-04-2023 Obstetrics Note This note was copied from a baby's chart. Met with mom at 's bedside. States that pumping continues to go well, she has a stable supply and has felt less engorged. She has been able to pump pain free. No questions or concerns at this time, encouraged to reach out for any other assistance. [facility] Miscellaneous Notes Formattin g of this [...] baby is born. Check in with a freight rate specialist if swollen, engorged breasts are still [...] answered, encouragement given. documented in this encounter [facility] 12-01-2023 Obstetrics Note This note was copied [...] baby is born. Check in with a freight rate specialist if swollen, engorged breasts are still [...] pumping guidelines and importance of pumping how infant eats. Encouraged pumping every 2-3 hours for [...] is actually removed. Questions answered, encouragement given. [facility] 11-28-2023 Miscellaneous Notes Formattin g of this [...] concerns. Support given. documented in this encounter [facility] 11-28-2023 Obstetrics Note This note was copied from a baby's chart. Met with mother at infants bedside. States her supply is stable and has no pain with pumping. Mother plans to exclusively pump and feed. Encouraged her to call out for a LC with any questions or concerns. Support given. [facility] 11-25-2023 Miscellaneous Notes Formattin g of this [...] at this time. documented in this encounter [facility] 11-25-2023 Obstetrics Note This note was copied from a baby's chart. Met with mother at 's bedside. Reports that pumping has been much better after getting assistance with flange fit. Is pumping every 2-3 hours and getting 3-5oz each time. Denies pain with pumping. No questions/concerns at this time. [facility] 11-21-2023 Miscellaneous Notes Formattin g of this [...] any other assistance. documented in this encounter [facility] 11-21-2023 Obstetrics Note This note was copied [...] to call out for any other assistance. [facility] 11-19-2023 History of Presen t illness Narrative [...] 07/21/2017 Performed by Gustavo Murcia MD at [facility] N/A 11/11/2023 Performed by Livier Hook MD at [facility] OR FRENULECTOMY LINGUAL N/A 07/21/2017 Performed by Gustavo Murcia MD at [facility] RADIO FREQUENCY TURBINATE NASAL Bilateral 07/21/2017 Performed by Gustavo Murcia MD at [facility] MEDICAL HX History reviewed. No pertinent past [...] every 8 (eight) hours. 30 tablet 0 -ofnm-mrhah-vyukq9 29-1-400 mg combo pack,tablet & cap,DR Take [...] and discussed with MD Peggy Sanchez MD Executive Chef Resident PGY-4 11/19/23 10:49 AM Seen today [...] weeks for exam documented in this encounter [facility] 11-18-2023 Miscellaneous Notes Formattin g of this [...] breastfeed or pump. documented in this encounter [facility] 11-18-2023 Obstetrics Note This note was copied [...] you are able to breastfeed or pump. [facility] 11-17-2023 Miscellaneous Notes Formattin g of this [...] All questions answered. [facility] [employer] [facility] 11-17-2023 Obstetrics Note This note was copied from a baby's chart. Saw mom at infants bedside. Attempting to latch almost every feed for about 10mins having a couple of sucks. States no concerns with pumping or latching. Encourage mom to continue to latch and follow cues. All questions answered. [facility] 11-15-2023 Miscellaneous Notes Formattin g of this [...] as needed.Verbalized understanding. documented in this encounter [facility] 11-15-2023 Obstetrics Note This note was copied [...] at bedside for support as needed.Verbalized understanding. [facility] 04-07-2023 Evaluation note Encounter Date Diagnosis Assessment [...] continues to struggle. Otherwise, continue current care. [facility] Other 06-21-2023 Evaluation note* Encounter Date Diagnosis Assessment Notes Treatment Notes Treatment Clinical Notes Feb, Wellness examination (ICD-10 - Z01.89) Feb, Screening for metabolic disorder (ICD-10 - Z13.228) Feb, Screening for cardiovascular condition (ICD-10 - Z13.6) Feb, Weight gain (ICD-10 - R63.5) [employer] Other 10-31-2022 Evaluation note* Encounter Date Diagnosis Assessment Notes Treatment Notes Treatment Clinical Notes Jun, RLQ abdominal pain (ICD-10 - R10.31) 31 Oct, 2022 RUQ abdominal pain (ICD-10 - R10.11) [employer] Other 10-22-2022 NoteEducation Materials Elevated Blood Pressure [...] chicken without skin, beans, eggs, (more content notincluded)...[facility] 07-31-2021 Evaluation note* Encounter Date Diagnosis [...] Nexplanon. I've recommended she discuss with her maxillofacial surgeon, Dr. Harris, whether or not this should be removed and if she should consider alternative forms of contraception. I've offered to check CBC, Iron, and TSH, but patient prefers to meet with Dr. Harris first. [facility] Other 11-01-2017 History general Narrative - Reported* Type Description Date Medical History Depression Medical History broken fingers from sports Medical History sprained right ankle - basketbal l Medical History Contusion to the Right Ankle - S occer Surgical History adenoidecomty 07/2017 Hospitalization History Child [facility] Other Evaluation noteNo assessment information available [facility] Work Phone: Evaluation note* Diagnosis Onset Date Resolution Status Menorrhagia with regular cycle acute Encounter for wellness examination noneactive [facility] Work Phone: Evaluation note* Diagnosis Onset Date Resolution Status Menorrhagia with regular cycle acute Encounter for wellness examination noneactive Sore throat noneactive [facility] Work Phone: Evaluation note* Diagnosis Nexplanon removal Encounter for routine checking of intrauterine contraceptive device (IUD) [facility] Diagnosis Menorrhagia with regular cycle [facility] Diagnosis PCOS (polycystic ovarian syndrome)- Primary Polycystic ovaries Iron deficiency anemia due to chronic blood loss Iron deficiency anemia secondary to blood loss (chronic) Menorrhagia with irregular cycle documented in this encounter [facility]* Diagnosis Encounter for IUD insertion Insertion of intrauterine contraceptive device documented in this encounter [facility]* Diagnosis Surgical followup- Primary [facility] Diagnosis Encounter for visit- Primary [facility] Diagnosis Weight gain- Primary Other [...] (chronic) Other fatigue documented in this encounter [facility]* Diagnosis Well woman exam with routine gynecological exam Routine gynecological examination [facility] filedocumented [facility] System[facility]ructionsNot on filedocumented in this encounterMar[facility] SystemInstructionsNot on filedocumented [facility] Summary Purpose Family History Relationship Condition Age [...] Reason Comments IUD insertion Reason Comments Care Reason Comments Well Women Visit INFORMATION SOURCE (unrecogn ized section and content) DATE CREATED AUTHOR 07/26/2022 [facility] DATE CREATED AUTHOR AUTHOR'S ORGANIZ ATION 12/17/2023 [facility] DATE CREATED AUTHOR AUTHOR'S ORGANIZ ATION 01/23/2024 [facility] DATE CREATED AUTHOR AUTHOR'S ORGANIZ ATION 01/19/2025 [facility] EPIC DATE CREATED AUTHOR AUTHOR'S ORGANIZ ATION 01/21/2025 [facility] Care Teams (unrecognized sec tion and content) Team Status: Active Member Role Status Dates Mishel Dimas DO Primary Care Provider Active Team Status: Inactive Member Role Status Dates Mishel Dimas DO Primary Care Provider, Attendin g Provider Active Team Status: Inactive Member [...] April 14, 2024 End: April 14, 2024 Bobbin Inspector Relationship Specialty Start Date End Date Noemi Yoo MD [address] [address] PCP - General Family Medicine 06/24/24 Jennifer Herrera PA [address] [facility] [address] [place] [address] Physician Pumping Station Engineer Family Medicine 06/24/24 Bobbin Inspector Relationship Specialty Start Date End Date Noemi Yoo MD [address] [facility] [address] [place] [address] PCP - General Family Medicine 06/24/24 Jennifer Herrera PA [address] [address] Physician Pumping Station Engineer Family Medicine 06/24/24 Bobbin Inspector Relationship Specialty Start Date End Date Mishel Dimas MD NPI: [address] [place] [phone] PCP - General Family Medicine 04/14/23 Bobbin Inspector Relationship Specialty Start Date End Date Mishel Dimas MD NPI: [address] [place] [address] PCP - General Family Medicine 04/14/23 Bobbin Inspector Relationship Specialty Start Date End Date Mishel Dimas MD NPI: [address] [place] [phone] PCP - General Family Medicine 04/14/23 Bobbin Inspector Relationship Specialty Start Date End Date Mishel Dimas MD NPI: [address] [place] [phone] PCP - General Family Medicine 04/14/23 Bobbin Inspector Relationship Specialty Start Date End Date Mishel Dimas MD NPI: [id number] [place] [phone] PCP - General Family Medicine 04/14/23 Bobbin Inspector Relationship Specialty Start Date End Date Mishel Dimas DO NPI: [address] [place] [phone] PCP - General Family Medicine 06/23/17 Bobbin Inspector Relationship Specialty Start Date End Date Mishel Dimas DO NPI: [id number] [place] [phone] PCP - General Family Medicine 06/23/17 Bobbin Inspector Relationship Specialty Start Date End Date Mishel Dimas DO NPI: [id number] [place] [phone] PCP - General Family Medicine 06/23/17 Bobbin Inspector Relationship Specialty Start Date End Date Mishel Dimas DO NPI: [id number] [place] [phone] PCP - General Family Medicine 06/23/17 Bobbin Inspector Relationship Specialty Start Date End Date Noemi Yoo MD [address] [facility] [address] [place] [address] PCP - General Family Medicine 06/24/24 Jennifer Herrera PA [address] [facility] [address] [place] [address] Physician Pumping Station Engineer Family Medicine 06/24/24 Bobbin Inspector Relationship Specialty Start Date End Date Noemi Yoo MD [address] [facility] [address] [place] [address] PCP - General Family Medicine 06/24/24 Jennifer Herrera PA [address] [facility] [address] [place] [address] Physician Pumping Station Engineer Family Medicine 06/24/24 Bobbin Inspector Relationship Specialty Start Date End Date Noemi Yoo MD [address] [facility] [address] [place] [address] PCP - General Family Medicine 06/24/24 Jennifer Herrera PA [address] [facility] [address] [place] [address] Physician Pumping Station Engineer Family Medicine 06/24/24 Bobbin Inspector Relationship Specialty Start Date End Date Noemi Yoo MD [address] [facility] [address] [place] [address] PCP - General Family Medicine 06/24/24 Jennifer Herrera PA [address] [facility] [address] [place] [address] Physician Pumping Station Engineer Family Medicine 06/24/24 Bobbin Inspector Relationship Specialty Start Date End Date Noemi Yoo MD [address] [facility] [address] [place] [address] PCP - General Family Medicine 06/24/24 Jennifer Herrera PA [address] [facility] [address] [place] [address] Physician Pumping Station Engineer [facility] Medicine 06/24/24 Goals (unrecognized section and content) [...] BE BASED ON THE PRIMARY CLINICAL RECORDS. [employer] provides no warranty or guarantee of the accuracy or completeness of information in this document.
== END 2025-03-29 19:20 | disposition home or self-care (01) ==
LOC: LAB 19:19
PROVIDERS: PCP Physician Assistant; Visit Provider Physician Assistant
DX: Z01.419 Encounter for gynecological examination (general) (routine) without abnormal findings (principal)
CPT/HCPCS: 88175

== ENCOUNTER 2025-05-31 08:48 | Outpatient (OUT) | payer BC, OTHER, SELFPAY ==
--- OUTSIDE RECORDS SUMMARY | 2025-05-31 08:50 | XMS_ITS | Encounter Summary ---
Author Organization [facility] Address [address] [place] [address] Care Team Providers Care Web Press Roll Tender Name Role Phone Deshawn Caal MD Primary Care Provider [phone] Noemi Yoo MD Primary Care Provider [phone] Jennifer Tucker PA Unavailable [phone] Encounter Details Date Type Department Care Team (Late st Contact Info) Description 06/16/2024 Abstract [facility] [address] [facility] [address] [place] [phone] Deshawn Caal MD [address] [place] [phone] Social History Tobacco Use Types Packs/Day Years [...] often do you attend chur ch or roman catholic services? More than 4 times per year 01/28/2024 Do you belong to any clubs o r organizations such as congregational groups, unions, fraternal or athletic groups, or [...] heating? Not hard at all 01/28/2024 [facility] - Occupational [...] Care Team (Late st Contact Info) Description 05/31/2025 10:00 AM EDT Office Visit [facility] ACOSTA [address] [place] [phone] Luba Corral PA [address] [place], [place] [phone] 06/24/2025 10:30 AM EDT Office Visit [facility] [address] [facility] [address] [place] [address] Jennifer Tucker PA [address] [facility] [address] [place] [address] 04/04/2026 10:00 AM EDT Office Visit [facility] ACOSTA [address] [place] [address] Luba Corral PA [address] [place], [place] [phone] documented as of this encounter Visit Diagnoses Not on filedocumented in this encounter Care Teams Web Press Roll Tender Relationship Specialty Start Date End Date Deshawn Caal MD PCP - General Family Medicine 04/14/23 06/23/24 Noemi Yoo MD [address] [facility] [address] [place] [address] PCP - General Family Medicine 06/24/24 Jennifer Tucker PA [address] [facility] [address] [place] [address] Physician Public Health Staff Nurse Family Medicine 06/24/24 documented as of this encounter
--- OUTSIDE RECORDS SUMMARY | 2025-05-31 08:50 | XMS_ITS | Encounter Summary ---
Author Organization [facility] tem Address [id number] [place] [address] Care Team Providers Care Well Logger Name Role Phone Kalina Caalew Mi CASANOVA Primary Care Provider [phone] Encounter Details Date Type Department Care Team (Late st Contact Info) Description 08/26/2023 Orders Only Maternal- Medicine at [facility] [address] [place] [address] Ref Prov, [place] [address] Social History Tobacco Use Types Packs/Day Years [...] 11:22 AM EST) Anatomical Region Laterality Modality OB-FLARE MAN Ultrasound us Not In System Ref Prov IMG US ORDERABLES Final R esult * Unlisted Genetic Test (06/05/2023 11:25 AM EDT) us Not In System Ref Prov LAB BLOOD ORDERABLES Joelle l Result MANUALLY TRANSCRIBED RESULTS * Ultrasound limited 1 or more fetus (05/15/2023 11:20 AM EDT) Anatomical Region Laterality Modality OB-FLARE MAN Ultrasound us Not In System Ref Prov IMG US ORDERABLES Final R esult documented in this encounter Visit Diagnoses Not on filedocumented in this encounter Additional Health Concerns Infection Onset Date Last Indicated Resolved Time COVID-19 Rule-Out 10/08/2023 10/08/2023 10/08/2023 11:05 AM EST documented as of this encounter Care Teams Well Logger Relationship Specialty Start Date End Date Deshawn Caal DO PCP - General Family Medicine 06/23/17 documented as of this encounter
--- OUTSIDE RECORDS SUMMARY | 2025-05-31 08:50 | XMS_ITS | Patient Health Record ---
Author Organization [facility] es Address [address] [place] [address] Care Team Providers Care Nitrator Operator Name Role Phone Katerin Chase [phone] Reason For Referral No Information Problems Problem Type SNOMED Code ICD Code Onset Dates Problem Status W/U Status Risk Notes Problem Primigravida ([id number]) Encounter for supervision of normal first , unspecified trimester (Z34.00) Active confirm Plan Of Treatment No Information Insurance Providers Payer Name Payer Address Payer Phone Subscriber Number Group Number Insured Name Patient Relationship to Insured Coverage Start Date Coverage End Date ANTHEM Primary [address] [place] [address] [id number] BLACKBURNREBECA VENTURA Self - patient is the insured [address] [place] [address] [id number] REBECA BLACKBURN Self - patient is the insured 5 Medical (General) History Medical History History ICD Code seasonal Surgical History Surgery Date(Month/Year) adenoidectomy 2018
--- OUTSIDE RECORDS SUMMARY | 2025-05-31 08:50 | XMS_ITS | Clinical Summary ---
Author Organization [facility] Address [id number] [address] [place] [address] Care Team Providers Care Cotton Chopper Name Role Phone Deshawn Caal DO Primary Care Provider [phone] Allergies No known active allergies Medications toyanyes24-yxkq -folic-omega3 29-1-400 mg combo pack,tablet & cap,DR Take 1 tablet by mouth. Active acetaminophen (TYLENOL EXTRA STRENGTH) 500 mg tablet Take 2 tablets (1,000 mg total) by mouth every 8 (eight) hours. 30 tablet Active Additional Information Patient not taking.Reported on 12/16/2023 docusate sodium (COLACE) 100 mg capsule Take 1 capsule (100 mg total) by mouth in the morning and 1 capsule (100 mg total) before bedtime. 60 capsule Active Additional Information Patient not taking.Reported on 12/16/2023 ibuprofen (MOTRIN) 800 mg tablet Take 1 tablet (800 mg total) by mouth every 8 (eight) hours. 30 tablet 4 Active Additional Information Patient not taking.Reported on 12/16/2023 Active Problems Problem Noted Date Diagnosed Date Deviated septum 09/15/2018 Other acute sinusitis 10/27/2017 S/P adenoidectomy 08/04/2017 Tongue tied 06/30/2017 Nasal congestion 06/23/2017 Allergic rhinitis 06/23/2017 Adenoid hypertrophy 06/23/2017 Resolved Problems Problem Noted Date Diagnosed Date Resolved Date Vasa previa 08/28/2023 11/19/2023 Intrauterine 02/24/202011/19 Immunizations Immunization Administration Dates Next Due Influenza, Injectable, quadrivalent (PF) 023 Tdap 09/23/2023 Family History Relation Name Status Comments Father Alive Mother Alive Social History Tobacco Use Types Packs/Day Years Used Date Smoking Tobacco: Never Smokeless Tobacco: Never Tobacco Cessation:Counseling Given: Not Answered Alcohol Use Standard Drinks/Week Comments No 0 (1 standard drink = 0.6 oz pur e alcohol) Overall Financial Resource Strain (CARDIA) Answe r Date Recorded How hard is it for you to pa y for the very basics like food, housing, medical care, and heating? Not hard at all 12/14/2023 PHQ-2 Answer Date Recorded Total Score 0 12/14/2023 Mccleary Depression Scale Answer Date Recorded Mccleary Depression Scale Total 1 12/16/2023 The thought of harming myself has occurred to me . Never 12/16/2023 Housing Instability Answer Date Recorde d Are you worried or concerned that in the next two months you may not have stable housing that you own, rent or stay in as a part of a household? No 11/19/2023 Childcare Answer Date Recorded Do problems getting child ca re make it difficult for you to work or study? No 12/14/2023 Employment Answer Date Recorded Employment Unknown 03/08/2019 Hunger Screening Answer Date Recorded Within the past 12 months we worried whether our food would run out before we got money to buy more. Never True 12/16/2023 Within the past 12 months th e food we bought just didn't last and we didn't have money to get more. Never True 12/16/2023 Purpose - Life Answer Date Recorded Purpose and direction in life Unknown Comments No Sex and Gender Information Value Date Recorded Sex Assigned at Female 08/28/2023 5:58 PM EST Legal Sex Female 2:06 PM EDT Gender Identity Female 08/28/2023 5:58 PM EST Sexual Orientation Straight 08/28/2023 5: 58 PM EST Last Filed Vital Signs Vital Sign Reading Time Taken Comments Blood Pressure 122/82 12/16/2023 1:15 PM EDT Pulse 99 11/13/2023 3:00 PM EST Temperature 36.7 C (98.1 F) 11/19/2023 10:31 AM EST Respiratory Rate 18 11/13/2023 3:00 PM EST Oxygen Saturation 99% 11/11/2023 2:45 PM EST Inhaled Oxygen Concentration - - Weight 74.7 kg (164 lb 11.2 oz) 12/16/2023 1:15 PM EDT Height 157.5 cm (5' 2 ) 08/28/2023 5:5 5 PM EST Body Mass Index 30.12 08/28/2023 5:55 PM EST Plan of Treatment Health Maintenance Due Date Last Done Comments COVID-19 Vaccine (2023-2 5 season) 2024 03/26/2021, 03/05/2021 Pap Smear 2024 Chlamydia Screening 08/29/2024 08/29/2023, 02/24/2020, 02/13/2020 Adult BMI Screening 12/15/2024 12/16/2023 Depression Screening 12/15/2024 12/16/2023, 12/14/19 24 Tobacco Screening 12/15/2024 12/16/2023 Influenza Vaccine 05/30/2025 09/22/2023, 11/05/2005 DTaP,Tdap and Td Vaccines (8 - Td or Tdap) 09/23/2033 09/23/2023, 03/28/2020, 04/08/2016, Additional history exists Medical Devices Not on file Procedures Procedure Name Priority Date/Time Associated Diagnosis Comments CHLAMYDIA/GC BY PCR SADIA SWAB STAT 02/24/2020 7:22 PM EDT from Last 3 Months or Most Recently Relevant to Health Maintenance Results * Chlamydia/GC by PCR Sadia Swab (02/24/2020 7:22 PM EDT) Specimen source CERVIX 0 7:23 PM EDT [facility] Chlamydia DNA PCR Negative Negative^N egative 02/25/2020 11:01 AM EDT [facility] Comment: Chlamydia trachomatis not detected by nucleic acid amplification. This does not exclude the possibility of infection because results are dependent on adequate specimen collection. Gonorrhea DNA PCR Negative Negative^N egative 02/25/2020 11:01 AM EDT [facility] Comment: Neisseria gonorrhoeae not detected by nucleic acid amplification. This does not exclude the possibility of infection because results are dependent on adequate specimen collection. Swab (GENS) 02/24/2020 7:22 PM EDT 02/24/2020 7:22 PM EDT Suki Benitez MD MICROBIOLOGY - GENERAL ORDERA BLES Final Result [facility] [address] [place] [address] from Last 3 Months or Most Recently Relevant to Health Maintenance Insurance ANTHEM ANTHEM [facility] MEDICAID ANTHEM ANTHEM [facility] MEDICAID ANTHEM Advance Directives * Full Code (Latest Code Status on File) Date Activated Date Inactivated Comments 08/28/2023 6:14 PM 11/13/2023 6:20 PM * Full Code Date Activated Date Inactivated Comments 02/24/2020 6:30 PM 02/25/2020 2:46 PM Care Teams Cotton Chopper Relationship Specialty Start Date End Date Deshawn Caal DO PCP - General Family Medicine 06/23/17
--- OUTSIDE RECORDS SUMMARY | 2025-05-31 08:50 | XMS_ITS | Encounter Summary ---
Author Organization [facility] Address [address] [facility] [place] [address] Care Team Providers Care Coal Weigher Name Role Phone Deshawn Caal MD Primary Care Provider [phone] Noemi Yoo MD Primary Care Provider [phone] Jennifer Tucker PA Unavailable [phone] Encounter Details Date Type Department Care Team (Late st Contact Info) Description 09/08/2023 Abstract [facility] [place] [facility] [address] [place] [address] Davin Blum DO [address] [facility] [place] [address] Social History Tobacco Use Types Packs/Day [...] EDT Office Visit [facility] Fern ACOSTA [address] [place] [phone] Luba Corral PA [address] [facility] [place] [address] 06/24/2025 10:30 AM EDT Office Visit [facility] [place] [facility] [address] [facility] [address] [place] [address] Jennifer Tucker PA [address] [facility] [address] [place] [address] 04/04/2026 10:00 AM EDT Office Visit [facility] Fern ACOSTA [address] [place] [address] Luba Corral PA [address] [facility] [address] [place], [place] [id number] documented as of this encounter Visit Diagnoses Not on filedocumented in this encounter Care Teams Coal Weigher Relationship Specialty Start Date End Date Deshawn Caal MD PCP - General Family Medicine 04/14/23 06/23/24 Noemi Yoo MD [address] [facility] [address] [place] [address] PCP - General Family Medicine 06/24/24 Jennifer Tucker PA [address] [place] [address] [place] [address] Physician Ent Surgeon Family Medicine 06/24/24 documented as of this encounter
--- OUTSIDE RECORDS SUMMARY | 2025-05-31 08:50 | XMS_ITS | Encounter Summary ---
Author Organization [facility] Address [id number] [address] [place] [address] Care Team Providers Care Cloth Shrinker Name Role Phone Deshawn Caal DO Primary Care Provider [phone] Encounter Details Date Type Department Care Team (Late st Contact Info) Description 09/15/2018 Documentation [facility] [address] [place] [address] Coleen Lockwood LPN Social History [...] documented as of this encounter Care Teams Cloth Shrinker Relationship Specialty Start Date End Date Deshawn Caal DO PCP - General Family Medicine 06/23/17 documented as of this encounter
--- OUTSIDE RECORDS SUMMARY | 2025-05-31 08:50 | XMS_ITS | Encounter Summary ---
Author Organization [facility] Address [address] [place] [address] Care Team Providers Care Crop Supervisor Name Role Phone Noemi Yoo MD Primary Care Provider [phone] Jennifer Tucker PA Unavailable [phone] Encounter Details Date Type Department Care Team (Late st Contact Info) Description 04/06/2025 Orders Only [facility] [address] [facility] [place] [address] Katie Villalobos LPN [address] [place] [address] Social History Tobacco Use Types [...] often do you attend chur ch or spiritism services? More than 4 times per year 01/28/2024 Do you belong to any clubs o r organizations such as buddhist groups, unions, fraternal or athletic groups, or [...] Recorded Patient Health Questionnaire-2 Score 0 01/18/2025 [facility] - Occupational Stress Questionnaire Answer Date [...] Description 05/31/2025 10:00 AM EDT Office Visit SHERINE ACOSTA [address] [place] [phone] Luba Corarl PA [address] [facility] [address] [place], [place] [id number] 06/24/2025 10:30 AM EDT Office Visit SHERINE [facility] [address] [facility] [address] [place] [address] Jennifer Tucker PA [address] [facility] [address] [place] [address] 04/04/2026 10:00 AM EDT Office Visit SHERINE ACOSTA [address] [facility] [place] [address] Luba Corral PA [address] [facility] [place] [address] documented as of this encounter Procedures Procedure Name Priority Date/Time Associated Diagnosis Comments PAP SMEAR Routine 03/29/2025 12:00 AM EDT documented in this encounter Results * Pap Smear (03/29/2025 12:00 AM EDT) Swab Cervical swab / Unknown us [facility] CYTOLOGY ORDERABLES Final Re sult EXTERNAL LAB documented in this encounter Visit Diagnoses Not on filedocumented in this encounter Care Teams Crop Supervisor Relationship Specialty Start Date End Date Noemi Yoo MD [address] [phone] PCP - General Family Medicine 06/24/24 Jennifer Tucker PA [address] [address] Physician General Partner Family Medicine 06/24/24 documented as of this encounter
--- OUTSIDE RECORDS SUMMARY | 2025-05-31 08:50 | XMS_ITS | Encounter Summary ---
Author Organization [facility] Address [address] [facility] [place] [address] Care Team Providers Care Driver License Examiner Name Role Phone Deshawn Caal MD Primary Care Provider [phone] Noemi Yoo MD Primary Care Provider [phone] Jennifer Tucker Unavailable [phone] Encounter Details Date Type Department Care Team (Late st Contact Info) Description 01/22/2024 Clinisync Result Encounter [facility] External Department Unsolicited Nenita Blum DO [address] [facility] [place] [address] Social History Tobacco Use [...] Department Care Team (Late Contact Info) Description 05/31/2025 10:00 AM EDT Office Visit NOMNydia ACOSTA [address] [facility] [place] [address] Luba Corral PA [address] [facility] [place] [address] 06/24/2025 10:30 AM EDT Office Visit [facility] [address] [place] [address] [place] [phone] Jennifer Tucker PA [address] [place] [address] [place] [address] 04/04/2026 10:00 AM EDT Office Visit SHERINE ACOSTA [address] [facility] [place] [phone] Luba Corral PA [address] [facility] [address] [place], [place] [address] documented as of this encounter Procedures Procedure Name Priority Date/Time Associated Diagnosis Comments US PELVIS W/ TRANSVAGINAL 01/22/2024 9:26 AM EDT documented in this encounter Results * US PELVIS W/ TRANSVAGINAL (01/22/2024 9:26 AM EDT) Anatomical Region Laterality Modality Other 01/22/2024 9:26 AM EDT Narrative 01/22/2024 9:28 AM EDT The [address] [address] Ultrasound Report Signed Patient: JOSELIN BLACKBURN MR#: [id number] : 2005 Acct:[id number] Age/Sex: 18 / F ADM Date: 01/22/24 Loc: [facility] Attending Dr: Nenita Blum D.O. Ordering Physician: Nenita Blum D.O. Date of Service: 01/22/24 Procedure(s): US pelvis w/ transvaginal Accession Number(s): [id number] cc: Nenita Blum D.O.; Physician,Non-Staff MDannielle The [address] [place] [address] [address] Patient Name: JOSELIN BLACKBURN MRN: [id number] date: 2005 Sex: F Assigned Patient Location: [facility] Current Patient Location: [facility] Accession/Order Number: [id number] Exam Date: 01/22/2024 08:24 Report Date: 01/22/2024 [...] M.D. Signed By: 01/22/24927 DD/ 5 TD/TT: Data Acquisition Technician: Procedure Note Radiology, Radiologist, MD - 01/22/2024 [place] [address] Ultrasound Report Signed Patient: JOSELIN BLACKBURNMR#: [id number] : 2005Acct:[id number] Age/Sex: 18 / FADM Date: 01/22/24 Loc: [facility] Attending Dr: Nenita Blum D.O. Ordering Physician: Nenita Blum D.O. Date of Service: 01/22/24 Procedure(s): US pelvis w/ transvaginal Accession Number(s): [id number] cc: Nenita Blum D.O.; Physician,Non-Staff Marissa The [address] [place] [address] [address] Patient Name: JOSELIN BLACKBURN MRN: [id number]:[id number] date: 2005 Sex: F Assigned Patient Location: [facility] Current Patient Location: [facility] Accession/Order Number: [id number] Exam Date: 01/22/2024 08:24 Report Date: 01/22/2024 [...] Espino M.D. Signed By:01/22/2428 DD/ 5 TD/TT: Data Acquisition Technician: us Nenita Blum DO [facility] Final Result documented in this encounter Visit Diagnoses Not on filedocumented in this encounter Care Teams Driver License Examiner Relationship Specialty Start Date End Date Deshawn Caal MD PCP - General Family Medicine 04/14/23 06/23/24 Noemi Yoo MD [address] [facility] [address] [place] [address] PCP - General Family Medicine 06/24/24 Jennifer Tucker PA [address] [facility] [address] [place] [address] Physician Manager Of Selection And Assessment Family Medicine 06/24/24 documented as of this encounter
--- OUTSIDE RECORDS SUMMARY | 2025-05-31 08:50 | XMS_ITS | Encounter Summary ---
Author Organization [facility] Address [address] [place] [address] Care Team Providers Care In Class Special Education Teacher Name Role Phone Noemi Yoo MD Primary Care Provider [phone] Jennifer Tucker PA Unavailable [phone] Encounter Details Date Type Department Care Team (Late st Contact Info) Description 05/25/2025 Telephone [facility] Fern ACOSTA [address] [place] [address] Davin Blum DO [address] [facility] [place] [address] Social History Tobacco Use Types [...] often do you attend chur ch or druze services? More than 4 times per year [...] Recorded Patient Health Questionnaire-2 Score 0 01/18/2025 [facility] of Occupat ional [facility] - Occupational Stress Questionnaire Answer [...] on file documented as of this encounter Miscellaneous Notes * Telephone Encounter - Margie Santacruz LPN - 05/25/2025 2:24 PM EDT Patient was called and made aware we will order ultrasound for her. Patient was asked if she would like this sent to [facility] or transferred to clerical to schedule. Patient asking if she would be able toget done today at [facility] and she was advised she would need to schedule and they do have some later appointments then our office. Patient asked for this to be sent to [facility]. Order sent at this time. * Telephone Encounter - Margie Santacruz LPN - 05/25/2025 1:39 PM EDT I was calling I do not know if I should be concerned about this, but I guess I just want to ease mymind. So Friday I had started getting some brown discharge and usually I get that before my period start and I am supposed to be on my period, but yet to start and I am still having the brown discharge and it is like a lot in quite a bit and like, I had just gone to the bathroom and it is like all cotting in the toilet and stuff, but it is not red or anything equivalent to what a period should look like. Um, so I just wanted to call and see if I should be concerned about it or not. A good call back number for me is [phone]. Thank you. documented in this encounter Plan of Treatment Upcoming Encounters Date Type Department Care Team (Late st Contact Info) Description 05/31/2025 10:00 AM EDT Office Visit [facility] Fern ACOSTA [address] [place] [address] Luba Corral PA [address] [place] [address] 06/24/2025 10:30 AM EDT Office Visit [facility] [place] [facility] [address] [facility] [address] [place] [address] Jennifer Tucker PA 112 [facility] [address] [place] [address] 04/04/2026 10:00 AM EDT Office Visit NOMNyida ACOSTA [address] [place] [address] Luba Corral PA [address] [facility] [address] Scheduled Orders Name Type Priority Associated Diagnoses Orde r Schedule US Pelvis w/ TV Imaging Routine Menorrhagia with irregular cycle Abnormal bleeding in menstrual cycle Expected: 05/25/2025, Expires: 11/25/2025 documented as of this encounter Visit Diagnoses Diagnosis Menorrhagia with irregular cycle Abnormal bleeding in menstrual cycle documented in this encounter Care Teams In Class Special Education Teacher Relationship Specialty Start Date End Date Noemi Yoo MD 112 [facility] [address] [place] [address] PCP - General Family Medicine 06/24/24 Jennifer Tucker PA 112 [facility] [address] [place] [address] Physician Inpatient Services Director Family Medicine 06/24/24 documented as of this encounter
--- OUTSIDE RECORDS SUMMARY | 2025-05-31 08:50 | XMS_ITS | Encounter Summary ---
Author Organization [facility] Address [address] [facility], [address] [place] [address] Care Team Providers Care Seam Feller Name Role Phone Unavailable Primary Care Provider Unavailabl e Encounter Details Date Type Department Care Team (Late st Contact Info) Description 05/17/[address] [place] [address] Pat Murcia, SAFE AND VAULT SERVICE MECHANIC - YACHT CAPTAIN [address] [place] [address] Social History Tobacco Use Types Packs/Day Years Used Date Smoking Tobacco: Never Assessed Comments Unknown Sex and Gender Information Value Date Recorded Sex Assigned at Not on file Legal Sex Female 3:46 PM EDT Gender Identity Not on file Sexual Orientation Not on file documented as of this encounter Plan of Treatment Upcoming Encounters Date Type Department Care Team (Late st Contact Info) Description 06/07/2025 10:30 AM EDT Office Visit [address] [place] [phone] Pat Murcia, SAFE AND VAULT SERVICE MECHANIC - YACHT CAPTAIN [address] [place] [address] [address] [place] [address] constipation documented as of this encounter Visit Diagnoses Not on filedocumented in this encounter
--- OUTSIDE RECORDS SUMMARY | 2025-05-31 08:50 | XMS_ITS | Clinical Summary ---
Author Organization [facility] Address [address] [facility], [address] [place] [address] Care Team Providers Care Matcher Name Role Phone Unavailable Primary Care Provider Unavailabl e Medications vitamin D (CHOLECALCIFERO L) 50 MCG (1999 UT) CAPS capsule Take 50 mcg by mouth daily 5 Active ferrous sulfate (FE TABS 325) 325 (65 Fe) MG EC tablet Take 1 tablet by mouth daily (with breakfast) 5 Active levonorgestrel (MIRENA) IUD 52 mg 1 each by IntraUTERine route continuous 4 06/21/20 29 Active phentermine (ADIPEX-P) 37.5 MG tablet Take 1 tablet by mouth every morning (before breakfast). 5 06/01/20 25 Active metFORMIN (GLUCOPHAGE-XR) 500 MG extended release tablet TAKE 1 TABLET BY MOUTH IN THE EVENING. TAKE WITH MEALS. DO NOT CRUSH, CHEW, OR SPLIT 5 Active Active Problems Problem Noted Date Diagnosed Date Class 1 obesity without seri ous comorbidity with body mass index (BMI) of 31.0 to 31.9 in adult 01/18/2025 Iron deficiency anemia due to chronic blood loss 06/24/2024 Major depressive disorder, single episode, moder ate 06/24/2024 Menorrhagia with irregular cycle 06/24/2024 PCOS (polycystic ovarian syndrome) 06/24/2024 Deviated septum 09/15/2018 S/P adenoidectomy 08/04/2017 Allergic rhinitis 06/23/2017 Encounters Date Type Department Care Team Description 05/17/2025 Orders Only [facility] SURGERY Part of [address] [place] [address] Talia Cash, SOLAR APPLICATIONS DEVELOPMENT ENGINEER 05/17/[address] [place] [address] Pat Murcia, DESKTOP SUPPORT MANAGER - LINSEED CAKE TRIMMER from Last 3 Months Social History Tobacco Use Types Packs/Day Years Used Date Smoking Tobacco: Never Assessed Comments Unknown Sex and Gender Information Value Date Recorded Sex Assigned at Not on file Legal Sex Female 3:46 PM EDT Gender Identity Not on file Sexual Orientation Not on file Plan of Treatment Upcoming Encounters Date Type Department Care Team (Late st Contact Info) Description 06/07/2025 10:30 AM EDT Office Visit [address] [place] [address] Pat Murcia, DESKTOP SUPPORT MANAGER - LINSEED CAKE TRIMMER [address] [place] [address] constipation Health Maintenance Due Date Last Done Comments Depression Monitoring 2015 Varicella vaccine (1 of 2 - 13+ 2-dose series) 2016 HIV screen 2018 HPV vaccine (1 - 3-dose series) 2018 Chlamydia/GC screen 2019 Meningococcal B vaccine (1 o f 2 - Standard) 2019 Hepatitis C screen 2021 DTaP/Tdap/Td vaccine (1 - Tdap) 2022 Hepatitis B vaccine (1 of 3 - 19+ 3-dose series) 2022 COVID-19 Vaccine (1 - 2023-2 5 season) 2024 Pap smear 2024 Flu vaccine (#1) 04/29/2025 Hepatitis A vaccine Aged Out No longe r eligible based on patient's age to complete this topic Hib vaccine Aged Out No longer eligi ble based on patient's age to complete this topic Meningococcal (ACWY) vaccine Aged Out No longer eligible based on patient's age to complete this topic Pneumococcal 0-49 years Vaccine Aged Out No longer eligible based on patient's age to complete this topic Polio vaccine Aged Out No longer elig ible based on patient's age to complete this topic
--- OUTSIDE RECORDS SUMMARY | 2025-05-31 08:50 | XMS_ITS | Encounter Summary ---
Author Organization [facility] Address [address] [place] [address] Care Team Providers Care Physical Chemistry Professor Name Role Phone Noemi Yoo MD Primary Care Provider [phone] Jennifer Tucker PA Unavailable [phone] Encounter Details Date Type Department Care Team (Late st Contact Info) Description 03/21/2025 Abstract [facility] [place] [facility] [address] [facility] 110 [place] [address] Noemi Yoo MD 112 [facility] 110 [place] [address] Social History Tobacco Use Types Packs/Day Years [...] often do you attend chur ch or religion services? More than 4 times per year 01/28/2024 Do you belong to any clubs o r organizations such as voodoo groups, unions, fraternal or athletic groups, or [...] AM EDT Office Visit [facility] Fern ACOSTA [address] [place] [address] [place] [address] Luba Corral PA [address] [facility] [address] [place], [place] [address] 06/24/2025 10:30 AM EDT Office Visit [facility] [place] Lui [address] [facility] 110 [place] [address] Jennifer Tucker PA [address] [facility] 110 [place] [address] 04/04/2026 10:00 AM EDT Office Visit NOMNydia ACOSTA [address] [facility] [place] [address] Luba Corral PA [address] [facility] [address] [place], [place] [address] documented as of this encounter Visit Diagnoses Not on filedocumented in this encounter Care Teams Physical Chemistry Professor Relationship Specialty Start Date End Date Noemi Yoo MD [address] [facility] 110 [place] [address] PCP - General Family Medicine 06/24/24 Jennifer Tucker PA [address] [facility] 110 [place] [address] Physician Lead Ramp Service Man Family Medicine 06/24/24 documented as of this encounter
--- OUTSIDE RECORDS SUMMARY | 2025-05-31 08:50 | XMS_ITS | Encounter Summary ---
Author Organization [facility] Address [address] [place] [address], [address] [place] [address] Care Team Providers Care Engineering Drafter Name Role Phone Unavailable Primary Care Provider Unavailabl e Encounter Details Date Type Department Care Team (Late st Contact Info) Description 05/17/2025 Orders Only [facility] GENERAL SURGERY Part of [address] [place] [address] Talia Cash, INTERNET MARKETING ANALYST Social History Tobacco Use Types Packs/Day Years [...] Description 06/07/2025 10:30 AM EDT Office Visit [facility] Part of [address] [place] [address] Pat Murcia, WELDING MACHINE ASSEMBLER - SUPERINTENDENT [employer] [address] [place] [address] [facility] [address] [place] [address] constipation documented as of this encounter Visit Diagnoses Not on filedocumented in this encounter
--- OUTSIDE RECORDS SUMMARY | 2025-05-31 08:50 | XMS_ITS | Encounter Summary ---
Author Organization [facility] Address [address] [facility] [place] [address] Care Team Providers Care Electrical Mechanic Name Role Phone Deshawn Caal MD Primary Care Provider [phone] Noemi Yoo MD Primary Care Provider [phone] Jennifer Tucker PA Unavailable [phone] Encounter Details Date Type Department Care Team (Late st Contact Info) Description 08/28/2023 External Result Encounter [facility] Fern OBGYN [address] [place] [place] [address] Nenita Blum DO [address] [facility] [place] [address] Social History Tobacco Use Types Packs/Day [...] EDT Office Visit [facility] Fern ACOSTA [address] [place] [place] [phone] Luba Corral PA [address] [facility] [place] [address] 06/24/2025 10:30 AM EDT Office Visit [facility] [place] [facility] [address] [facility] 110 [place] [address] Jennifer Tucker PA [address] [facility] [address] [place], [place] [address] 04/04/2026 10:00 AM EDT Office Visit NOMNydia ACOSTA [address] [place] [place] [address] Luba Corral, PA [address] [facility] [address] [place], [place] [id number] documented as of this encounter Procedures Procedure Name Priority Date/Time Associated Diagnosis Comments US OB 14+ WEEKS ANATOMY SCAN 08/28/2023 6:34 PM EST documented in this encounter Results * US OB 14+ weeks anatomy scan (08/28/2023 6:34 PM EST) Anatomical Region Laterality Modality Body Ultrasound 08/28/2023 6:34 PM EST Narrative 08/28/2023 6:33 PM EST THIS EXAM WAS PERFORMED AT [facility] REPORT (Signed Final 08/28/2023 18:33) PATIENT INFO: ID #: [id number] : [birth year] (18 yrs)(F) Name: JOSELIN ROSADO Visit Date: 08/28/2023 16:46 VALENZUELA PERFORMED BY: Attending: Kenny Greer MD Performed By: Jennifer Guthrie RDMS Referred By: Nenita Ramirez Address: [address] [place] [address] [place] [address] Location: [facility] SERVICE(S) PROVIDED: Comprehensive Anatomic Survey 55871 OB Transvaginal 81343 Doppler, middle cerebral artery 74746 Echocardiogram-complete 44971 INDICATIONS: Screening for anatomic survey Z36.89 Vaginal [...] Normal Interventr. Septum: Variant, see below Cardiac [place]: Appears normal Diaphragm: Appears normal 3 Vessel [...] evaluation of anemia. RECOMMENDATIONS: 1. Please see [facility] consultation documentation from today's encounter. Of note, VSD was not discussed with patient yet, will need to be discussed inpatient. 2. The patient was escorted to [facility] for admission. 3. Subsequent follow up or other follow up as clinically determined by primary OB provider unless otherwise specified by [facility]. 4. Results forwarded to ordering provider so they can follow up with the patient as necessary. The copy-to physician of this order is NENITA Rg The ordering physician of this order is KENNY Parsons Procedure Note Radiology, RadiologistMD - 09/23/2023 THIS EXAM WAS PERFORMED AT [facility] REPORT (Signed Final 08/28/2023 18:33) PATIENT INFO: ID #: [id number] : [birth year] (18 yrs)(F) Name: JOSELIN ROSADO Visit Date: 08/28/2023 16:46 VALENZUELA PERFORMED BY: Attending: Kenny Greer MD Performed By: Jennifer Guthrie RDMS Referred By: Nenita Blum DO Ref. Address: [address] [place] [address] [place] [address] Location: [facility] SERVICE(S) PROVIDED: Comprehensive Anatomic Survey 01101 OB Transvaginal 13068 Doppler, middle cerebral artery 44637 Echocardiogram-complete 66075 INDICATIONS: Screening for anatomic survey Z36.89 Vaginal [...] % 71 - 87 FL/AC: 21.2 % - Est. FW: 558 gm 1 lb 4 [...] Normal Interventr. Septum: Variant, see below Cardiac [place]: Appears normal Diaphragm: Appears normal 3 Vessel [...] evaluation of anemia. RECOMMENDATIONS: 1. Please see [facility] consultation documentation from today's encounter. Of note, VSD was not discussed with patient yet, will need to be discussed inpatient. 2. The patient was escorted to [facility] for admission. 3. Subsequent follow up or other follow up as clinically determined by primary OB provider unless otherwise specified by [facility]. 4. Results forwarded to ordering provider so they can follow up with the patient as necessary. The copy-to physician of this order is NENITA Rg The ordering physician of this order is KENNY Parsons us Nenita Blum DO IMG OB US PROCEDURES Final Resul t documented in this encounter Visit Diagnoses Not on filedocumented in this encounter Care Teams Electrical Mechanic Relationship Specialty Start Date End Date Deshawn Caal MD PCP - General Family Medicine 04/14/23 06/23/24 Noemi Yoo MD 112 [facility] 110 [place] [address] PCP - General Family Medicine 06/24/24 Jennifer Tucker PA 112 [facility] 110 [place] [address] Physician Model Artists' Family Medicine 06/24/24 documented as of this encounter
--- OUTSIDE RECORDS SUMMARY | 2025-05-31 08:51 | XMS_ITS | Encounter Summary ---
Author Organization [facility] Address [address] [facility] [place] [address] Care Team Providers Care Sole Scraper Name Role Phone Deshawn Caal MD Primary Care Provider [phone] Noemi Yoo MD Primary Care Provider [phone] Jennifer Tucker Unavailable [phone] Encounter Details Date Type Department Care Team (Late st Contact Info) Description 2023 Clinisync Result Encounter NOMS External Department Unsolicited Nenita Blum, DO [address] [facility] [place] [address] Social History Tobacco Use Types [...] 05/31/2025 10:00 AM EDT Office Visit NOMNydia MERCERGYN [address] [facility] [place] [address] Luba Corral PA [address] [place] [address] 06/24/2025 10:30 AM EDT Office Visit [facility] [place] [facility] [address] [facility] 110 [place] [address] Jennifer Tucker PA [address] [facility] 110 [place] [address] 04/04/2026 10:00 AM EDT Office Visit [facility] Fern ACOSTA [address] [facility] [place] [address] Luba Corral PA [address] [place] [address] documented as of this encounter Procedures Procedure Name Priority Date/Time Associated Diagnosis Comments US OB TRANSVAGINAL 2023 3: 32 PM EST documented in this encounter Results * US OB TRANSVAGINAL (2023 3:32 PM EST) Anatomical Region Laterality Modality Other 2023 3:32 PM EST Narrative 2023 3:32 PM EST The [address] [address] Ultrasound Report Signed Patient: JOSELIN VALENZUELA MR#: [id number] : 2005 Acct:[id number] Age/Sex: 18 / F ADM Date: 08/11/23 Loc: US Attending Dr: Nenita Blum D.O. Ordering Physician: Nenita Blum D.O. Date of Service: 08/11/23 Procedure(s): US OB transvaginal Accession Number(s): [id number] cc: Nenita Blum D.O.; Physician,Non-Staff M.DNancy [address] [address] Patient Name: JOSELIN VALENZUELA MRN: [id number] date: 2005 Sex: F Assigned Patient Location: US Current Patient Location: Accession/Order Number: [id number] Exam Date: 2023 11:10 Report Date: 2023 [...] Dictated By: Francisco North M.D. Signed By: 08/11/231533 DD/ 31 TD/TT: Adjunct Faculty: Procedure Note Radiology, Radiologist, - 2023 [place] [address] Ultrasound Report Signed Patient: JOSELIN VALENZUELAMR#: [id number] : 2005Acct:[id number] Age/Sex: 18 / FADM Date: 08/11/23 Loc: US Attending Dr: Nenita Blum D.O. Ordering Physician: Nenita Blum D.O. Date of Service: 08/11/23 Procedure(s): US OB transvaginal Accession Number(s): [id number] cc: Nenita Blum D.O.; Physician,Non-Staff Marissa The [place] [address] Patient Name: JOSELIN VALENZUELA MRN: [id number] date: 2005 Sex: F Assigned Patient Location: US Current Patient Location: US Accession/Order Number: [id number] Exam Date: 2023 11:10 Report Date: 2023 [...] North M.D. Signed By:08/11/231533 DD/ 31 TD/TT: Adjunct Faculty: us Nenita Viktoria DO [facility] Final Result documented in this encounter Visit Diagnoses Not on filedocumented in this encounter Care Teams Sole Scraper Relationship Specialty Start Date End Date Deshawn Caal MD PCP - General Family Medicine 04/14/23 06/23/24 Noemi Yoo MD 112 [facility] 110 [place] [address] PCP - General Family Medicine 06/24/24 Jennifer Tucker PA [address] [facility] 110 [place] [address] Physician Bobbin Presser Family Medicine 06/24/24 documented as of this encounter
--- OUTSIDE RECORDS SUMMARY | 2025-05-31 08:51 | XMS_ITS | Encounter Summary ---
Author Organization [facility] Address [address] [place] [address] Care Team Providers Care A P Supervisor Name Role Phone Noemi Yoo MD Primary Care Provider [phone] Jennifer Tucker Unavailable [phone] Encounter Details Date Type Department Care Team (Late st Contact Info) Description 01/20/2025 [facility] [address] [facility] [address] [place] [address] Jennifer Tucker PA [address] [facility] 110 [place] [address] Vitamin D 25 hydroxy Total, TSH W/REFLEX TO FT4, Iron + transferrin + TIBC, CBC Social History Tobacco Use Types Packs/Day Years [...] How often do you attend chur or jain services? More than 4 times per year 01/28/2024 Do you belong to any clubs o r organizations such as jewish groups, unions, fraternal or athletic groups, or [...] 01/18/2025 [facility] - Occupational Stress Questionnaire Answer Date [...] place to sleep or slept in a long term (including now)? No 01/28/2024 Comments No Sex [...] AM EDT Office Visit NOMNydia ACOSTA [address] [facility] [place] [address] Luba Corral PA [address] [facility] [address] [place], [place] [address] 06/24/2025 10:30 AM EDT Office Visit SHERINE Salguero Medince [address] [facility] 110 [place] [address] Jennifer Tucker PA [address] [facility] 110 [place] [address] 04/04/2026 10:00 AM EDT Office Visit SHERINE ACOSTA [address] [facility] [place] [address] Luba Corral PA [address] [facility] [place] [address] documented as of this encounter Visit Diagnoses Diagnosis Low ferritin- Primary Other nonspecific findings on examination of blood Vitamin D deficiency documented in this encounter Care Teams A P Supervisor Relationship Specialty Start Date End Date Noemi Yoo MD [address] [facility] 110 [place] [address] PCP - General Family Medicine 06/24/24 Jennifer Tucker PA [address] [place] [address] Physician Boat And Plant Utility Supervisor Family Medicine 06/24/24 documented as of this encounter
--- OUTSIDE RECORDS SUMMARY | 2025-05-31 08:51 | XMS_ITS | Clinical Summary ---
Author Organization [facility] Address [address] [place] [address] Care Team Providers Care Medical Administrative Assistant Name Role Phone Noemi Yoo MD Primary Care Provider [phone] Jennifer Tucker Unavailable [phone] Allergies No known active allergies Medications ferrous sulfate (Fe Tabs) 325 (65 Fe) MG EC tabletIndications :Low ferritin Take 1 tablet (325 mg) by mouth in the morning. Take with meals. Do not crush, chew, or split. 30 tablet 2 01/21/20 25 Active cholecalciferol (Vitamin D-3) 50 MCG (1999) capsuleIndication s:Vitamin D deficiency Take 1 capsule (50 mcg) by mouth Daily 90 capsule 3 01/21/20 25 Active phentermine (Adipex-P) 37.5 MG tabletIndications :Encounter for weight management Take 1 tablet (37.5 mg) by mouth in the morning. Take before meals. 30 tablet 05/02/20 25 025 Active metFORMIN XR (Glucophage-XR) 500 MG 24 hr tabletIndications :Well woman exam with routine gynecological exam Take 1 tablet (500 mg) by mouth in the evening. Take with meals Do not crush, chew, or split. 30 tablet 11 03/29/20 25 025 Discontinued Hospital, Clinic, or Other Facility Administered Medication [...] Resolved Date Antepartum bleeding, third t rimester ([facility]) 06/24/2024 06/24/2024 Abdominal cramping complicat ing , antepartum ([facility]) 06/24/2024 06/24/2024 UTI (urinary tract infection) 06/24/2024 06/24/2024 Excessive and frequent menstruation 06/24/2024 06/24/2024 Other acute sinusitis 10/27/20172023 Adenoid hypertrophy 06/23/2017 06/24/20 24 Encounters Date Type Department Care Team Description 05/25/2025 Telephone [facility] Fern ACOSTA [address] [place] [address] Davin Blum DO 05/02/2025 2:30 PM EDT Office Visit [facility] Fern ACOSTA [address] [place] [address] Luba Corral PA Medication care plan discussed with patient; Encounter for weight management 05/02/2025 Bamboo flowsheet [facility] Fern ACOSTA [address] [place] [address] Luba Corral PA 05/01/2025 Travel 04/20/2025 Telephone [facility] Fern ACOSTA [address] [place] [address] Emerald Fulton MA 04/06/2025 [place] [address] Katie Villalobos KHUSHI 04/04/2025 Telephone [facility] Fern ACOSTA [address] [place] [address] MasonAmbika MA 03/29/2025 1:00 PM EDT Office Visit [facility] Fern GARCIAN [address] [place] [address] Luba Corral PA Well woman exam with routine gynecological exam 03/29/2025 Clinisync Result Encounter NOMS External Department Unsolicited Luba Corral PA 03/29/2025 Bamboo flowsheet [facility] Fern [facility]CERGYKody [address] [place] [address] Luba Corral PA 03/29/2025 Travel 03/21/2025 Abstract [facility] [address] [facility] 110 [place] [address] Noemi Yoo MD 03/19/2025 Clinisync Result Encounter NOMS External Department Unsolicited Jennifer Tucker PA from Last 3 Months Family History Medical [...] week 01/28/2024 How often do you attend [facility] or [facility] services? More than 4 times per year 01/28/2024 Do you belong to any clubs o r organizations such as uatsdin groups, unions, fraternal or athletic groups, or [...] Recorded Patient Health Questionnaire-2 Score 0 01/18/2025 [facility] - [...] place to sleep or slept in a mcfp (including now)? No 01/28/2024 Comments No Sex and Gender Information Value Date Recorded Sex Assigned at Not on file Legal Sex Female 6:51 PM EDT Gender Identity Not on file Sexual Orientation Not on file Last Filed Vital Signs Vital Sign Reading Time Taken Comments Blood Pressure 120/84 05/02/2025 2:21 PM EDT Pulse 79 01/18/2025 4:27 PM EDT Temperature 35.9 C (96.7 F) 02/03/2024 9:02 AM EDT Respiratory Rate 16 01/18/2025 4:27 PM EDT Oxygen Saturation 99% 01/18/2025 4:27 PM EDT Inhaled Oxygen Concentration - - Weight 81.1 kg (178 lb 12.8 oz) 05/02/2025 2:21 PM EDT Height 157.5 cm (5' 2 ) 01/18/2025 4:27 PM EDT Body Mass Index 32.7 01/18/2025 4:27 PM EDT Plan of Treatment Upcoming Encounters Date Type Department Care Team (Late st Contact Info) Description 05/31/2025 10:00 AM EDT Office Visit SHERINE ACOSTA [address] [facility] [place] [address] Luba Corral PA [address] [facility] [place] [address] 06/24/2025 10:30 AM EDT Office Visit NOMNydia Lui [address] [facility] 110 [place] [address] Jennifer Tucker PA [address] [facility] 110 [place] [address] 04/04/2026 10:00 AM EDT Office Visit SHERINE ACOSTA [address] [facility] [place] [address] Luba Corral PA [address] [facility] [place] [address] Health Maintenance Due Date Last Done Comments Influenza Vaccine (#1) 2025 09/22/2023, 2005 Procedures Procedure Name Priority Date/Time Associated Diagnosis Comments MLR HEMOGLOBIN A1C Routine 03/29/2025 3: 47 PM EDT [facility] CMP (CMP) (FOR REMOTE [facility] USE) Routine 03/29/2025 3:47 PM EDT IGP,APTIMA HPV,AGE GDLN Routine 03/29/2025 1:06 PM EDT PAP SMEAR Routine 03/29/2025 12:00 AM EDT [facility] FERRITIN Routine 03/19/2025 11:13 AM EDT from Last 3 Months Results * MLR HEMOGLOBIN A1C (03/29/2025 3:47 PM EDT) GLYCOHEMOGLOBIN A1C 5.1 4.5 - 6.2 % [facility] Comment: ADA RECOMMENDED LIMIT 4.0 - 6.0 ADA THERAPEUTIC TARGET < 7.0 ACTION SUGGESTED > 7.0 ESTIMATED AVERAGE GLUCOSE 100 mg/dL [facility] 03/29/2025 3:47 PM EDT 03/29/2025 3:49 PM EDT Narrative [facility] - 03/29/2025 5:34 PM EDT us Generic External Data Provider [facility] F inal Result [facility] * (ABNORMAL) [facility] CMP (CMP) (FOR REMOTE [facility] USE) (03/29/2025 3:47 PM EDT) SODIUM 140 136 - 145 mmol/L [facility] POTASSIUM 3.9 3.5 - 5.1 mmol/L [facility] CHLORIDE 103 98 - 107 mmol/L [facility] CARBON DIOXIDE 28.3 21.0 - 32.0 mmol/L [facility] ANION GAP 12.6 [facility] GLUCOSE 112(H) 74 - 106 mg/dL [facility] BLOOD UREA NITROGEN 13.0 7.0 - 18.0 mg/dL [facility] CREATININE 0.63 0.55 - 1.02 mg/dL [facility] EGFR-AF IRISH >60 >=60 mL/min/1. 73m 2 [facility] EGFR-NON AF IRISH >60 >=60 mL/min/1. 73m 2 [facility] BUN [...] PM EDT 03/29/2025 3:49 PM EDT Narrative [facility] - 03/29/2025 4:17 PM EDT Generic External Data Provider [facility] F inal Result [facility] * IGP,APTIMA HPV,AGE GDLN (03/29/2025 1:06 PM EDT) AGE GDLN ACOG TESTING Note . [facility] Comment: TESTS RESULT FLAG UNITS REF RANGE LAB Clinician Provided Cytology Information Source.............Cervix;Endocervix No. of containers..01 ThinPrep Vial Age Kaushik Mcneil... FLAG LEGEND: L-Low Normal,H-High Normal,LL-Alert Low,HH-Alert High <-Panic Low,>-Panic High,A-Abnormal,AA-Critical Abnormal Performed at: 01 =[address] [address] Lia Olivera MD, IGP, RFX APTIMA HPV ASCU Note . [facility] Comment: TESTS RESULT FLAG UNITS REF RANGE LAB DIAGNOSIS: 02 NEGATIVE FOR INTRAEPITHELIAL LESION OR MALIGNANCY. Specimen adequacy: 02 Satisfactory for evaluation. No endocervical component is identified. Performed by: Miracle Hull, Commodity Director (ASCP) . 02 Note: Note 03 The Pap smear is a screening test designed to aid in the detection of premalignant and malignant conditions of the uterine cervix. It is not a diagnostic procedure and should not be used as the sole means of detecting cervical cancer. Both false-positive and false-negative reports do occur. Test Methodology: Note 03 This liquid based ThinPrep(R) pap test was screened with the use of an image guided system. . 02 The HPV DNA reflex criteria were not met with this specimen result therefore, no HPV testing was performed. FLAG LEGEND: L-Low Normal,H-High Normal,LL-Alert Low,HH-Alert High <-Panic Low,>-Panic High,A-Abnormal,AA-Critical Abnormal Performed at: 02 K[facility] [address] [place] [address] Gamaliel Courtney MD, 03 [address] [facility] [address] [address] Lia Olivera MD, Performed at: =G - [facility] [address] [id number] Managed Services Consultant: Lia Olivera MD, Phone: [phone] Performed at: [facility] [address] [place] [id number] Managed Services Consultant: Gamaliel Courtney MD, Phone: [phone] 03/29/2025 1:06 PM EDT 03/29/2025 8:42 PM EDT Narrative [facility] - 04/04/2025 4:08 PM EDT BRUSH-SPATULA CERVIX ENDOCERVIX us Generic External Data Provider LAB BLOOD ORDERAB LES Final Result Performing Organization Address [facility]/ZIP Co de Phone Number [facility] * Pap Smear (03/29/2025 12:00 AM EDT) Swab Cervical swab / Unknown Luba LAU LAB CYTOLOGY ORDERABLES Final Re sult Performing Organization Address City/[facility]/ZIP Co de Phone Number EXTERNAL LAB * [facility] FERRITIN (03/19/2025 11:13 AM EDT) FERRITIN 35.0 8.0 - 252.0 ng/mL [facility] 03/19/2025 11:1 3 AM EDT 03/19/2025 11:14 AM EDT Narrative [facility] - 03/19/2025 2:23 PM EDT Jennifer LAU [facility] Final Result [facility] from Last 3 Months Insurance [facility] Member Subscriber Plan / Payer (Ef fective 2017-Present) Name:Joselin Valenzuela Relation to Subscriber:Child Name:YOUSUF ARIAS Date of :1978 Address: [address] [place] [address] Payer ID:Not on file Type:Not on file Address: [place] [phone] [facility] Care Teams Medical Administrative Assistant Relationship Specialty Start Date End Date Noemi Yoo MD [address] [place] [address] PCP - General Family Medicine 06/24/24 Jennifer Tucker PA [address] [place] [address] Physician Marketing Systems Analyst Family Medicine 06/24/24
--- OUTSIDE RECORDS SUMMARY | 2025-05-31 08:51 | XMS_ITS | Encounter Summary ---
Author Organization [facility] Address [address] [place] [address] Care Team Providers Care Water Resources Program Director Name Role Phone Deshawn Caal MD Primary Care Provider + [phone] Noemi Yoo MD Primary Care Provider [phone] Jennifer Tucker Unavailable [phone] Encounter Details Date Type Department Care Team (Late st Contact Info) Description 06/20/2024 Clinisync Result Encounter [facility] External Department Unsolicited Nenita Blum, DO [address] [facility] [place] [address] Social History Tobacco Use Types [...] any clubs o r organizations such as denominational groups, unions, fraternal or athletic groups, or [...] and heating? Not hard at all 01/28/2024 [facility] [...] AM EDT Office Visit NOMNydia ACOSTA [address] [facility] [place] [phone] Luba Corral PA [address] [facility] [place] [address] 06/24/2025 10:30 AM EDT Office Visit NOMNydia Salguero [facility] [address] [place] [address] [place] [address] Jennifer Tucker PA [address] [place] [address] [place] [address] 04/04/2026 10:00 AM EDT Office Visit SHERINE ACOSTA [address] [facility] [place] [address] Luba Corral PA [address] [facility] [place] [address] documented as of this encounter Procedures Procedure Name Priority Date/Time Associated Diagnosis Comments US PELVIS W/ TRANSVAGINAL 06/20/2024 8:49 PM EDT documented in this encounter Results * US PELVIS W/ TRANSVAGINAL (06/20/2024 8:49 PM EDT) Anatomical Region Laterality Modality Other 06/20/2024 8:49 PM EDT Narrative 06/20/2024 8:51 PM EDT The [address] [address] Ultrasound Report Signed Patient: JOSELIN BLACKBURN MR#: [id number] : 2005 Acct:[id number] Age/Sex: 18 / F ADM Date: 06/18/24 Loc: US Attending Dr: Nenita Blum D.O. Ordering Physician: Nenita Blum D.O. Date of Service: 06/18/24 Procedure(s): US pelvis w/ transvaginal Accession Number(s): [id number] cc: Nenita Blum D.O.; Physician,Non-Staff Marissa [address] [address] Patient Name: JOSELIN BLACKBURN MRN: [id number] date: 2005 Sex: F Assigned Patient Location: US Current Patient Location: US Accession/Order Number: [id number] Exam Date: 06/18/2024 10:05 Report Date: 06/20/2024 [...] M.D. Signed By: 06/20/242050 DD/ 48 TD/TT: Marketing And Communications Officer: Procedure Note Radiology, Radiologist, MD - 06/20/2024 [place] [address] Ultrasound Report Signed Patient: JOSELIN BLACKBURNMR#: [id number] : 2005Acct:[id number] Age/Sex: 18 / FADM Date: 06/18/24 Loc: US Attending Dr: Nenita Blum D.O. Ordering Physician: Nenita Blum D.O. Date of Service: 06/18/24 Procedure(s): US pelvis w/ transvaginal Accession Number(s): [id number] cc: Nenita Blum D.O.; Physician,Non-Staff Marissa The [place] [id number] Patient Name: JOSELIN BLACKBURN MRN: [id number] date: 2005 Sex: F Assigned Patient Location: Current Patient Location: Accession/Order Number: [id number] Exam Date: 06/18/2024 10:05 Report Date: 06/20/2024 [...] Sheridan M.D. Signed By:06/20/242050 DD/ 48 TD/TT: Marketing And Communications Officer: us Nenita Viktoria DO [facility] Final Result documented in this encounter Visit Diagnoses Not on filedocumented in this encounter Care Teams Water Resources Program Director Relationship Specialty Start Date End Date Deshawn Caal MD PCP - General Family Medicine 04/14/23 06/23/24 Noemi Yoo MD [address] [facility] [address] [place], [place] [id number] PCP - General Family Medicine 06/24/24 Jennifer Tucker PA [address] [facility] [address] [place] [address] Physician Cut Out Stitcher Family Medicine 06/24/24 documented as of this encounter
--- OUTSIDE RECORDS SUMMARY | 2025-05-31 08:51 | XMS_ITS | Encounter Summary ---
Author Organization [facility] Address [address] [place] [address] Care Team Providers Care Residential Real Estate Agent Name Role Phone Deshawn Caal MD Primary Care Provider + [phone] Noemi Yoo MD Primary Care Provider [phone] Jennifer Tucker Unavailable [phone] Encounter Details Date Type Department Care Team (Late st Contact Info) Description 2023 Clinisync Result Encounter [facility] External Department Unsolicited Nneita Blum, DO [address] [facility] [place] [address] Social History Tobacco Use Types [...] AM EDT Office Visit NOMNydia MERCERGYN [address] [facility] [place] [phone] Luba Corral PA [address] [facility] [place] [address] 06/24/2025 10:30 AM EDT Office Visit [facility] [place] Salguero [facility] [address] [facility] [address] [place] [address] Jennifer Tucker PA [address] [facility] [address] [place] [address] 04/04/2026 10:00 AM EDT Office Visit NOMNydia [facility] [address] [facility] [place] [phone] Luba Corral PA [address] [facility] [place] [address] documented as of this encounter Procedures Procedure Name Priority Date/Time Associated Diagnosis Comments US OB ANATOMY 2023 3:32 PM EST documented in this encounter Results * US OB ANATOMY (2023 3:32 PM EST) Anatomical Region Laterality Modality Other 2023 3:32 PM EST Narrative 2023 3:32 PM EST The [address] [address] Ultrasound Report Signed Patient: JOSELIN BLACKBURN MR#: [id number] : 2005 Acct:[id number] Age/Sex: 18 / F ADM Date: 08/11/23 Loc: US Attending Dr: Nenita Blum D.O. Ordering Physician: Nenita Blum D.O. Date of Service: 08/11/23 Procedure(s): US OB anatomy Accession Number(s): [id number] cc: Nenita Blum D.O.; Physician,Non-Staff M.Kurt The [address] [id number] Patient Name: JOSELIN BLACKBURN MRN: [id number] date: 2005 Sex: F Assigned Patient Location: US Current Patient Location: Accession/Order Number: [id number] Exam Date: 2023 11:10 Report Date: 2023 [...] Signed By: 08/11/23 1534 DD/ 153 TD/TT: Lozenge Maker: Procedure Note Radiology, Radiologist, - [address] [address] Ultrasound Report Signed Patient: JOSELIN BLACKBURNMR#: [id number] : 2005Acct:[id number] Age/Sex: 18 / FADM Date: 08/11/23 Loc: US Attending Dr: Nenita Blum D.O. Ordering Physician: Nenita Blum D.O. Date of Service: 08/11/23 Procedure(s): US OB anatomy Accession Number(s): [id number] cc: Nenita Blum D.O.; Physician,Non-Staff Marissa The [address] [address] Patient Name: JOSELIN BLACKBURN MRN: [id number] date: 2005 Sex: F Assigned Patient Location: US Current Patient Location: US Accession/Order Number: [id number] Exam Date: 2023 11:10 Report Date: 2023 [...] North M.D. Signed By:08/11/231533 DD/ 31 TD/TT: Lozenge Maker: us Nenita Viktoria DO [facility] Final Result documented in this encounter Visit Diagnoses Not on filedocumented in this encounter Care Teams Residential Real Estate Agent Relationship Specialty Start Date End Date Deshawn Caal MD PCP - General Family Medicine 04/14/23 06/23/24 Noemi Yoo MD [address] [facility] [address] [place] [address] PCP - General Family Medicine 06/24/24 Jennifer Tucker PA [address] [facility] [address] [place] [address] Physician Grain Grader Family Medicine 06/24/24 documented as of this encounter
--- NOTE | 2025-05-31 08:52 | US_ITS ---
The [address] [address] Patient Name: REBECA BLACKBURN MRN: [id number] date: 2005 Sex: F Assigned Patient Location: US Current Patient Location: US Accession/Order Number: [id number] Exam Date: 05/31/2025 09:00 Report Date: 05/31/2025 13:20 At the request of: NENITA ADAIR DO Procedure: US pelvis w/ transvaginal ULTRASOUND PELVIS WITH TRANSVAGINAL COMPARISON: 06/18/2024 CLINICAL DATA: Vaginal discharge and cramping. IUD for the past year. Real-time ultrasound evaluation the pelvis was performed utilizing both a transabdominal and transvaginal approach. TRANSABDOMINAL: The urinary bladder is not fully distended. Estimated uterine size is approximately 7.9 x 3.9 x 6.7 cm. The endometrial lining is estimated at 4 - 5 mm. No focal myometrial abnormalities are seen. The left ovary is identified however the right is not discretely seen. TRANSVAGINAL: Transvaginal imaging was performed to better evaluate the uterus and adnexa. By this approach, there are no focal myometrial abnormalities. The endometrial lining measures approximately 3 mm in size. The IUD appears to be low-lying positioned at the lower uterine segment/cervix. Both ovaries are identified by this approach and there are multiple subcentimeter follicles bilaterally. The right ovary measures 3.8 x 1.9 x 2.4 cm. The left ovary measures 3.4 x 2.7 x 3.1 cm. No dominant adnexal cysts are seen. There is documentation of duplex and color Doppler blood flow. The resistive index on the right is 0.5 and on the left 0.4. No free fluid is noted. US/US pelvis w/ transvaginal IMPRESSION: ABNORMALLY LOW POSITION OF IUD. NO DOMINANT ADNEXAL CYSTS. Impression dictated by: Jennifer Buitrago M.D. 05/31/2025 1:20 PM Dictation Location: [place] [address] Electronically authenticated by: [id number] Date: 05/31/2025 13:20
--- OUTSIDE RECORDS SUMMARY | 2025-05-31 08:56 | XMS_ITS | CCD ---
Author Organization [facility] Care Team Providers Care Network Intern Name Role Phone Mishel Dimas Unavailable JUDIE MISHEL Mi Primary Care Unavailable Ahmet Moreno Admitting Unavailable Ahmet Moreno Attending Unavailable Ahmet Moreno Attending Unavailable JUDIE, MISHEL A Primary Care Unavailable Ahmet Moreno H Admitting Unavailable Kathyackbari, DO Mishel Primary Care Provider Judie, DO Hess Attending Provider [phone] GIANNA FITZGERALD Referring Unavailable BRANIECKI, MISHEL A Primary Care Unavailable BRANIECKI, MISHEL A Referring Unavailable BRANIECKI, MISHEL A Primary Care Unavailable DEIRDRE ZUÑIGA Admitting Unavailable DEIRDRE ZUÑIGA Attending Unavailable BRANIECKI, MISHEL A Primary Care Unavailable SILVER RICHARDS Consulting Unavailable STEFANO MORALES Consulting Unavailable JEWEL CERVANTES Consulting Unavailable AMILCAR, GIANNA Referring Unavailable BRANIECKI, MISHEL A Primary [...] Unavailable BRANIECKI, MISHEL A Primary Care Unavailable KATHYAIDALMISMISHEL Chappell Referring Unavailable JUDIEMISHEL Primary Care Unavailable DO Mishel Dimas Primary Care Provider [phone] MD Shivani Ghosh Attending Provider [phone] Judie Mishel Admitting Unavailable Mishel Dimas Primary Care Unavailable Mishel Dimas Attending Unavailable Shivani Ghosh Admitting Unavailable Shivani Ghosh Attending Unavailable Mishel Dimas Primary Care Unavailable Noemi Yoo MD Primary Care Provider [phone] Jennifer Mcneil Unavailable Mishel Dimas MD Primary Care Provider [phone] Mishel Dimas DO Primary Care Provider JENNIFER HERRERA Attending Unavailable LUBA CORRAL Attending Unavailable LUBA CORRAL Attending Unavailable DAVIN BLUM Attending Unavailable DAVIN BLUM Attending Unavailable JENNIFER HERRERA Attending Unavailable LUBA CORRAL Attending Unavailable Allergies Allergy Classification Reported Allergen(s) Allergy Type Date of Onset Reaction(s) Facility (1 source) No Known Medication Allergies; Translations: [No Known Medication Allergies] Propensity to adverse reactions to drug (disorder) [facility] Repository Medications Current Medications [...] day(s) Active cholecalciferol 0.05 mg oral capsule (8 sources) Vitamin D Start: 01-20-2025 take 1 [...] sulfate 325 mg delayed release oral tablet (20 sources) Start: 01-20-2025 take 1 tablet by [...] doses in a 24 hour period levonorgestrel 0.640475 mg/hr intrauterine system (19 sources) Progestin, Progestin-containing Intrauterine Device Start: 06-22-2024 [...] mg 20 tablet 0 11/13/2023 11/18/2023 Active phentermine hydrochloride 37.5 mg oral tablet (2 sources) Sympathomimetic Amine Anorectic Start: 05-02-2025 End: 06-01-2025 take 1 tablet by mouth before mealtime phentermine (Adipex-P) 37.5 MG tablet Indications: Encounter for weight management Take 1 tablet (37.5 mg) by mouth in the morning. Take before meals. 30 tablet 05/02/2025 06/01/2025 Active fkjucywf25-mhqo-ze lic-omega3 29-1-400 mg combo pack,tablet & capDR (11 sources) -gxnv- f olic-omega3 29-1-400 mg combo pack,tablet & capDR Take 1 tablet by mouth. 0 Active Completed/Discontinued Medications Medication Drug Class(es) Dates Sig (Normalized) Sig (Original) cephalexin 500 mg oral capsule (4 sources) Cephalosporin Antibacterial Start: 11-02-2021 End: 04-09-2024 take 500 mg by mouth three times daily Cephalexin Discontinued 500 MG PO Three times daily 30 10 November 02, 2021 1:00am April 09, 2024 7:11am etonogestrel 68 mg drug implant (20 sources) Progestin End: 01-18-2025 etonogestrel-elutin g 68 mg contraceptive implant 1 each by Implant route 1 (one) time 01/18/2025 Discontinued (Other) Nexplanon Active 24 hr metFORMIN hydrochloride 500 mg extended release oral tablet (6 sources) Biguanide Start: 03-29-2025 End: 05-02-2025 take 1 tablet by mouth every twenty-four hours at mealtime metFORMIN XR (Glucophage-XR) 500 MG 24 hr tablet Indications: Well woman exam with routine gynecological exam Take 1 tablet (500 mg) by mouth in the evening. Take with meals Do not crush, chew, or split. 30 tablet 11 03/29/2025 05/02/2025 Discontinued NIFEdipine 30 mg osmotic 24 hr extended [...] 2021 1:00am April 09, 2024 7:11am Vit 31-Uupj-Ywpsu-Dha ( + Dha) 28 mg iron- 975 mcg-200 mg Combo Pack (4 sources) Start: 02-13-2020 End: 11-02-2021 take 1 tablet by mouth once daily Vit 76-Byox-Sogdm-Dha ( + Dha) 28 mg iron- 975 mcg-200 mg Combo Pack Discontinued 1 TAB PO Daily February 13, 2020 12:00am November 02, 2021 7:03pm Problems Active Problems Problem Classification Problem Date Documented Date Episodic/Chronic Abdominal pain (2 sources) Right lower quadrant pain; Translations: [Right upper quadrant pain] Episodic Administrative/social admission (4 sources) Medication care plan discussed with patient; Translations: [Other specified counseling] 05-02-2025 Episodic Contraceptive and procreative management (3 sources) Subcutaneous contraceptive implant present; Translations: [Encounter for surveillance of implantable subdermal contraceptive] 07-08-2024 Episodic Deficiency and other anemia (20 sources) Iron deficiency anemia due to blood [...] unspecified trimester] 02-15-2020 Episodic Other endocrine disorders (20 sources) Polycystic ovary syndrome; Translations: [Polycystic ovarian syndrome] Onset: 06-24-2024 06-24-2024 Chronic Other nutritional; endocrine; and metabolic disorders (12 sources) Obesity; Translations: [Class 1 obesity without [...] unspecified] Onset: 08-28-2023 Episodic Other complications of (20 sources) Complication occurring during ; Translations: [Other [...] Resolved: 11-19-2023 08-28-2023 Episodic Urinary tract infections (20 sources) Urinary tract infectious disease; Translations: [Urinary tract infection, site not specified] Onset: 06-24-2024 Resolved: 06-24-2024 11-02-2021 Episodic Results Test Name Value Interpretation Reference Range Facility [facility] CMP (CMP) (FOR REMOTE FH C USE)on 03-29-2025 Albumin [Mass/Vol] 4 g/dL 3.4 - 5.0 g/dL [facility] ALBUMIN GLOBULIN RATIO 1.1 NO [facility] ALP [Catalytic activity/Vol] 76 U/L 46 - 116 U/L [facility] ALT [Catalytic activity/Vol] 27 U/L 14 - 59 U/L [facility] Anion gap [Moles/Vol] 12.6 mmol/L NO [facility] AST [Catalytic activity/Vol] 19 U/L 15 - 37 U/L [facility] Bilirubin [Mass/Vol] 0.5 mg/dL 0.2 - 1 .0 [facility] [Mass/Vol] 9.3 mg/dL 8.5 - 10. 1 mg/dL [facility] Chloride [Moles/Vol] 103 mmol/L 98 - 10 7 mmol/L [facility] CO2 [Moles/Vol] 28.3 mmol/L 21.0 - 32.0 mmol/L [facility] Creatinine [Mass/Vol] 0.63 mg/dL 0.55 - 1.02 mg/dL [facility] GFR/1.73 sq M.predicted CKD-EPI (S/P/Bld) [Vol rate/Area] >60 >=60 mL/min/1.73 m 2 [facility] Globulin (S) [Mass/Vol] 3.5 g/dL N [facility] Glucose [Mass/Vol] 112 mg/dL High 74 - 106 mg/dL [facility] Interpretation and review of laboratory results Abnormal [facility] Potassium [Moles/Vol] 3.9 mmol/L 3.5 - 5.1 mmol/L [facility] Protein [Mass/Vol] 7.5 g/dL 6.4 - 8.2 g/dL [facility] Sodium [Moles/Vol] 140 mmol/L 136 - 145 mmol/L [facility] TBH EGFR-NON AF CUBAN >60 >=6 0 mL/min/1.73 m 2 [facility] Urea nitrogen [Mass/Vol] 13 mg/dL 7.0 - 18.0 mg/dL [facility] Urea nitrogen/Creatinine [Mass ratio] 20.6 mg/mg [facility] F[facility]-19-2025 Ferritin [Mass/Vol] 35 ng/mL 8.0 - 25 2.0 ng/mL [facility] CBC (H/H, RBC, INDICES, WBC, PLT)on 01-20-2025 Erythrocyte distribution width (RBC) [Ratio] 13.7 % Normal 11.0-15.0 [facility] Comment on above: Performed By: #### 1 0553, 5692, 84090 #### [facility] [address] [facility], [address] [place] [address] Shoe Lining Fitter: Tavo Barnes MD #### 1759 #### [facility] [address] Shoe Lining Fitter: Lu Champagne Hematocrit (Bld) [Volume fraction] 44.8 % Normal 35.0-45.0 [facility] Comment on above: Performed By: #### 1 3138, 5615, #### [facility] [address], [address] [place] [address] Shoe Lining Fitter: Tavo Barnes MD #### 1759 #### [place] [address] Shoe Lining Fitter: Lu Champagne Hemoglobin (Bld) [Mass/Vol] 14.8 g/dL Normal 11.7-15. 5 [facility] Comment on above: Performed By: #### 1 73, 5615, #### [facility] [address], [address] [place] [address] Shoe Lining Fitter: Tavo Barnes MD #### 1759 #### [facility] Shoe Lining Fitter: Lu Champagne MCH (RBC) [Entitic mass] 29.4 pg Normal 27.0-33.0 [facility] Comment on above: Performed By: #### 1 73, 5615, #### [facility] [address], [address] [place] [address] Shoe Lining Fitter: Tavo Barnes MD #### 1759 #### [facility] Shoe Lining Fitter: Lu Champagne MCHC (RBC) [Mass/Vol] 33.0 g/dL Normal 32.0-36.0 [facility] Comment on above: Result Comment: For adults, a slight decrease in the calculated MCHC value (in the range of 30 to 32 g/dL) is most likely not clinically significant; however, it should be interpreted with caution in correlation with other red cell parameters and the patient's clinical condition. Performed By: #### 1 73, 5615, 26189 #### [facility] [address], [address] [place] [address] Shoe Lining Fitter: Tavo Barnes MD #### 1759 #### [facility] [address] [place] [address] Shoe Lining Fitter: Lu Champagne MCV (RBC) [Entitic vol] 88.9 fL Normal 80.0-100.0 [facility] Comment on above: Performed By: #### 1 7306, 5616, 82570 #### [facility] [address], [address] [place] [address] Shoe Lining Fitter: Tavo aBrnes MD #### 1759 #### [facility] [address] Shoe Lining Fitter: Lu Champagne Platelet mean volume (Bld) [Entitic vol] 10.9 fL Normal 7.5-12.5 [facility] Comment on above: Performed By: #### 1 7306, 561, 23183 #### [facility] [address], [address] [place] [address] Shoe Lining Fitter: Tavo Barnes MD #### 1759 #### [facility] [address] Shoe Lining Fitter: Lu Champagne Platelets (Bld) [#/Vol] 215 10*3/uL Normal 140-400 [facility] Comment on above: Performed By: #### 1 7306, 561, 96411 #### [facility] [address], [address] [place] [address] Shoe Lining Fitter: Tavo Barnes MD #### 1759 #### [facility] [address]60 Shoe Lining Fitter: Lu Champagne RBC (Bld) [#/Vol] 5.04 10*6/uL Normal 3.80-5.10 [facility] Comment on above: Performed By: #### 1 7306, 561, 24352 #### [place] [address] Shoe Lining Fitter: Tavo Barnes MD #### 1759 #### [facility] [address]60 Shoe Lining Fitter: Lu Champagne WBC (Bld) [#/Vol] 4.8 10*3/uL Normal 3.8-10.8 [facility] Comment on above: Performed By: #### 1 7306, 5616, 22960 #### [facility] [address], [address] [place] [address] Shoe Lining Fitter: Tavo Barnes MD #### 1759 #### [facility] [address] [place] [address] Shoe Lining Fitter: Lu Champagne IRON, TIBC AND FERRITIN PANE Alex 01-20-2025 % SATURATION 31 % (calc) Normal 16-45 [facility] Comment on above: Order Comment: FASTI NG:NO FASTING: NO Performed By: #### 1 7306, 5616, 37382 #### [facility] [address], [address] [place] [address] Shoe Lining Fitter: Tavo Barnes MD #### 1759 #### [facility] [id number] Shoe Lining Fitter: Lu Champagne Ferritin [Mass/Vol] 14 ng/mL Low 16-154 [facility] Comment on above: Order Comment: FASTI NG:NO FASTING: NO Performed By: #### 1 7306, 5616, 49121 #### [facility] [address], [address] [place] [address] Shoe Lining Fitter: Tavo Barnes MD #### 1759 #### [facility] [address] [place] [address] Shoe Lining Fitter: Lu Champagne IRON BINDING CAPACITY 373 mcg/dL (calc) Normal 250-450 [facility] Comment on above: Order Comment: FASTI NG:NO FASTING: NO Performed By: #### 1 7306, 5616, 08226 #### [facility] [address], [address] [place] [address] Shoe Lining Fitter: Tavo Barnes MD #### 1759 #### [facility] [address] [place], [place] [address] Shoe Lining Fitter: Lu Champagne IRON, TOTAL 116 mcg/dL Normal 40-190 [facility] Comment on above: Order Comment: FASTI NG:NO FASTING: NO Performed By: #### 1 7306, 5616, 38547 #### [facility] [address], [address] [place] [address] Shoe Lining Fitter: Tavo Barnes MD #### 1759 #### [facility] [address] [place] [address] Shoe Lining Fitter: Lu Champagne TSH W/REFLEX TO FT4on 2024 TSH W/REFLEX TO FT4 1.04 mIU/L Normal [facility] Comment on above: Result Comment: Refe rence Range > or = 20 Years 0.40-4.50 Ranges First trimester 0.26-2.66 Second trimester 0.55-2.73 Third trimester 0.43-2.91 Performed By: #### 1 7306, 5616, 79172 #### [facility] [address], [address] [place] [address] Shoe Lining Fitter: Tavo Barnes MD #### 1759 #### [facility] [address] [place] [address] Shoe Lining Fitter: Lu Champagne VITAMIN D,25-OH,TOTAL,IAon 0 01-20-2025 VITAMIN [...] D, (D2,D3), LC/MS/MS is recommended: order code 66022 (patients >2yrs). See Note 1 Note 1 For additional information, please refer to http://education.[employer] ([employer])/faq/HOZ276 (This link is being provided for informational/ educational purposes only.) Performed By: #### 1 7306, 5616, 10675 #### [facility] [address] [facility], [address] [place] [address] Shoe Lining Fitter: Tavo Barnes MD #### 1759 #### [facility] [address] [place] [address] Shoe Lining Fitter: Lu Champagne ALL DEHYDROEPIANDROSTERONEon 08-27-2024 DHEA, SERUM 428 ng/dL 31 - 701 ng/dL [facility] Comment on above: This test was develo ped and its performance characteristics determined by [facility]. It has not been cleared or approved by the Food and Drug Administration. Performed at: [address] [id number] Immunochemist: Ede Cortez MD, Phone: [phone] [facility] ALL DHEA SULFATEon DHEA-SULFATE 293.0 ug/dL 110.0 - 431.7 ug/dL [facility] Comment on above: Performed at: [address] [id number] Immunochemist: Marbin Tracey PhD, Phone: [phone] [facility] Insertion/Removal of Contrac eptive Capsuleon 07-08-2024 Margie [...] fashion: yes Procedure: Procedure: Removal Left/right: Right [facility] HCG ( test) Ql (U)o n 06-22-2024 Interpretation and review of laboratory results Normal [facility] Preg Test, Ur Negative [facility] IUD Insertionon 06-22-2024 Jennifer Irving LPN 06/23/2024 9:54 AM IUD Insertion Date/Time: 06/22/2024 2:06 PM Performed by: Davin Blum DO Authorized by: Davin Blum DO Consent: Consent obtained: Written Consent given by: Patient Procedure risks and benefits discussed: yes Patient questions answered: yes Patient agrees, verbalizes understanding, and wants to proceed: yes Educational handouts given: yes Instructions and paperwork completed: yes Blanding protocol: Patient states understanding of procedure being [...] in 4 weeks for a string check. [facility] ALL CBC WITH AUTO DIFFon BASOPHILS ABSOLUTE AUTO 0.0 N [facility] Basophils/100 WBC (Bld) 0.5 % 0.2 - 2.0 % [facility] Eosinophils/100 WBC (Bld) 3.9 % 0.9 - 7.0 % [facility] Erythrocyte distribution width (RBC) [Ratio] 12.7 % 11.0 - 15.0 % [facility] Hematocrit (Bld) [Volume fraction] 42.9 % 36.0 - 48.0 % [facility] Hemoglobin (Bld) [Mass/Vol] 14.2 g/dL 12.0 - 16.0 g/dL [facility] IMMATURE GRANULOCYTES ABS AUTO 0.01 [facility] Immature granulocytes/100 WBC (Bld) 0.2 % 0.0 - 0.5 % [facility] Interpretation and review of laboratory results Abnormal [facility] LYMPHOCYTES ABSOLUTE AUTO 1.6 [facility] Lymphocytes/100 WBC (Bld) 38.3 % 20 .5 - 60.0 % [facility] MCH (RBC) [Entitic mass] 29.5 pg 26. 7 - 34.0 pg [facility] MCHC (RBC) [Mass/Vol] 33.1 g/dL 29.9 - 35.2 g/dL [facility] MCV (RBC) [Entitic vol] 89.0 fL 81.0 - 99.0 fL [facility] MONOCYTES ABSOLUTE AUTO 0.2 Low N [facility] Monocytes/100 WBC (Bld) 4.4 % 1.7 - 12.0 % [facility] NEUTROPHILS ABSOLUTE AUTO 2.2 [facility] Neutrophils/100 WBC (Bld) 52.7 % 43 .0 - 75.0 % [facility] Platelet mean volume (Bld) [Entitic vol] 11.1 fL 9.5 - 13.5 fL [facility] EO # 0.2 [facility] PLT 209 [facility] RBC 4.82 [facility] WBC 4.1 [facility] No Panel InformationOrdered By: Livier Howe on 04-14-2024 Quick Strep (POC) [facility] CBC AND AUTO DIFFon 11-12-19 24 ABSOLUTE BASOPHIL 0.0 X10E9/L Normal 0.0-0.2 [facility] Comment on above: Performed By: #### 2 0438-8 #### [facility] ([id number]) [address], [address] [place] [address] ABSOLUTE NEUTROPHIL 7.1 X10E9/L High 1.5-6.6 [facility] Comment on above: Performed By: #### 2 0438-8 #### [facility] ([id number]) [address], [address] [place] [address] Basophils/100 WBC (Bld) 0.1 % Normal P [facility] Comment on above: Performed By: #### 2 0438-8 #### [facility] ([id number]) [address], [address] [place] [address] Eosinophils (Bld) [#/Vol] 0.1 10*3/uL Normal 0.0-0.4 [facility] Comment on above: Performed By: #### 2 0438-8 #### [facility] ([id number]) [address], [address] [place] [address] Eosinophils/100 WBC (Bld) 0.6 % Normal [facility] Comment on above: Performed By: #### 2 0438-8 #### [facility] ([id number]) [address], [address] [place] [address] Erythrocyte distribution width (RBC) [Ratio] 15.5 % High 11.5-15.0 [facility] Comment on above: Performed By: #### 2 0438-8 #### [facility] ([id number]) [address], [address] [place] [address] Hematocrit (Bld) [Volume fraction] 31.2 % Low 35-47 [facility] Comment on above: Performed By: #### 2 0438-8 #### [facility] ([id number]) [address], [address] [place] [address] Hemoglobin (Bld) [Mass/Vol] 10.9 g/dL Low 11.7-15. 5 [facility] Comment on above: Performed By: #### 2 0438-8 #### [facility] ([id number]) [address], [address] [place] [address] Lymphocytes (Bld) [#/Vol] 1.7 10*3/uL Normal 1.0-3.5 [facility] Comment on above: Performed By: #### 2 0438-8 #### [facility] ([id number]) [address], [address] [place] [address] Lymphocytes/100 WBC (Bld) 18.3 % Normal [facility] Comment on above: Performed By: #### 2 0438-8 #### [facility] ([id number]) [address], [address] [place] [address] MCH (RBC) [Entitic mass] 31.0 pg Normal 27-34 [facility] Comment on above: Performed By: #### 2 0438-8 #### [facility] ([id number]) [address], [address] [place] [address] MCHC (RBC) [Mass/Vol] 35.0 g/dL Normal 32-36 [facility] Comment on above: Performed By: #### 2 0438-8 #### [facility] ([id number]) [address], [address] [place] [address] MCV (RBC) [Entitic vol] 89 fL Normal 80-100 P [facility] Comment on above: Performed By: #### 2 0438-8 #### [facility] ([id number]) [address] [address] [place] [address] Monocytes (Bld) [#/Vol] 0.6 10*3/uL Normal 0-0.9 [facility] Comment on above: Performed By: #### 2 0438-8 #### [facility] ([id number]) [address], [address] [place] [address] Monocytes/100 WBC (Bld) 6.8 % Normal [facility] Comment on above: Performed By: #### 2 0438-8 #### [facility] ([id number]) [address], [address] [place] [address] Neutrophils/100 WBC (Bld) 74.2 % Normal [facility] Comment on above: Performed By: #### 2 0438-8 #### [facility] ([id number]) [address], [address] [place] [address] Platelet mean volume (Bld) [Entitic vol] 8.9 fL Normal 7-12 [facility] Comment on above: Performed By: #### 2 0438-8 #### [facility] ([id number]) [address], [address] [place] [address] Platelets (Bld) [#/Vol] 138 10*3/uL Low 150-450 [facility] Comment on above: Performed By: #### 2 0438-8 #### [facility] ([id number]) [address], [address] [place] [address] RBC COUNT 3.52 X10E12/L Low 3.80-5.20 [facility] Comment on above: Performed By: #### 2 0438-8 #### [facility] ([id number]) [address], [address] [place] [address] WBC (Bld) [#/Vol] 9.5 10*3/uL Normal 4.0-11.0 [facility] Comment on above: Performed By: #### 2 0438-8 #### [facility] ([id number]) [address], [address] [place] [address] CBC AND AUTO DIFFon 11-11-19 24 ABSOLUTE BASOPHIL 0.0 X10E9/L Normal 0.0-0.2 [facility] Comment on above: Performed By: #### 2 0438-8 #### [facility] ([id number]) [address], [address] [place] [address] ABSOLUTE NEUTROPHIL 3.6 X10E9/L Normal 1.5-6.6 [facility] Comment on above: Performed By: #### 2 0438-8 #### [facility] ([id number]) [address], [address] [place] [address] Basophils/100 WBC (Bld) 0.4 % Normal [facility] Comment on above: Performed By: #### 2 0438-8 #### [facility] ([id number]) [address], [address] [place] [address] Eosinophils (Bld) [#/Vol] 0.1 10*3/uL Normal 0.0-0.4 [facility] Comment on above: Performed By: #### 2 0438-8 #### [facility] ([id number]) [address], [address] [place] [address] Eosinophils/100 WBC (Bld) 1.5 % Normal [facility] Comment on above: Performed By: #### 2 0438-8 #### [facility] ([id number]) [address], [address] [place] [address] Erythrocyte distribution width (RBC) [Ratio] 15.9 % High 11.5-15.0 [facility] Comment on above: Performed By: #### 2 0438-8 #### [facility] ([id number]) [address], [address] [place] [address] Hematocrit (Bld) [Volume fraction] 33.8 % Low 35-47 [facility] Comment on above: Performed By: #### 2 0438-8 #### [facility] ([id number]) [address], [address] [place] [address] Hemoglobin (Bld) [Mass/Vol] 11.6 g/dL Low 11.7-15. 5 [facility] Comment on above: Performed By: #### 2 0438-8 #### [facility] ([id number]) [address] [place] [address] Lymphocytes (Bld) [#/Vol] 1.7 10*3/uL Normal 1.0-3.5 [facility] Comment on above: Performed By: #### 2 0438-8 #### [facility] ([id number]) [address], [address] [place] [address] Lymphocytes/100 WBC (Bld) 29.4 % Normal [facility] Comment on above: Performed By: #### 2 0438-8 #### [facility] ([id number]) [address], [address] [place] [address] MCH (RBC) [Entitic mass] 30.7 pg Normal 27-34 [facility] Comment on above: Performed By: #### 2 0438-8 #### [facility] ([id number]) [address], [address] [place] [address] MCHC (RBC) [Mass/Vol] 34.2 g/dL Normal 32-36 [facility] Comment on above: Performed By: #### 2 0438-8 #### [facility] ([id number]) [address], [address] [place] [address] MCV (RBC) [Entitic vol] 90 fL Normal 80-100 [facility] Comment on above: Performed By: #### 2 0438-8 #### [facility] ([id number]) [address], [address] [place] [address] Monocytes (Bld) [#/Vol] 0.4 10*3/uL Normal 0-0.9 [facility] Comment on above: Performed By: #### 2 0438-8 #### [facility] ([id number]) [address], [address] [place] [address] Monocytes/100 WBC (Bld) 6.1 % Normal [facility] Comment on above: Performed By: #### 2 0438-8 #### [facility] ([id number]) [address] [place] [address] Neutrophils/100 WBC (Bld) 62.6 % Normal [facility] Comment on above: Performed By: #### 2 0438-8 #### [facility] ([id number]) [address], [address] [place] [address] Platelet mean volume (Bld) [Entitic vol] 8.9 fL Normal 7-12 [facility] Comment on above: Performed By: #### 2 0438-8 #### [facility] ([id number]) [address], [address] [place] [address] Platelets (Bld) [#/Vol] 132 10*3/uL Low 150-450 [facility] Comment on above: Performed By: #### 2 0438-8 #### [facility] ([id number]) [address] [place] [address] RBC COUNT 3.78 X10E12/L Low 3.80-5.20 [facility] Comment on above: Performed By: #### 2 0438-8 #### [facility] ([id number]) [address], [address] [place] [address] WBC (Bld) [#/Vol] 5.8 10*3/uL Normal 4.0-11.0 [facility] Comment on above: Performed By: #### 2 0438-8 #### [facility] ([id number]) [address], [address] [place] [address] Surgical Pathologyon 024 Surgical Pathology Normal [facility] Comment on above: Result Comment: [facility] [address] [place] [address] Surgical Pathology Consultation Patient Name:JOSELIN VALENZUELA:2005 (Age: 18)Gender:FTaken:4Reported:11/25/2023hysician(s):Lydia Hook M.D.Copy To:Deirdre Zuñiga [facility] Hospital[facility] #:[id number]. Rec. #:[id number]: #[id number] Final Pathologic Diagnosis Placenta: 378-gram third trimester placenta with three-vessel umbilical cord. Report Electronically Signed Out pss/11/25/2023durga Lazo MD Interpretation performed at [facility], [address] [place] [address], License number: [id number]. Clinical History Vasa previa, IUP vasa previa. [...] Rolled membrane, two sections of cord [employer] sections of placenta (4,ss,Y56-6179) . /11/19/2023GP Specimen(s) Received Placenta Fee Codes(s): 1; 86904 STREP B SCREEN CULTUREon S. agalactiae Org specific cx Ql (Vag+Rectum) CULTURE RESULTS NEGATIVE FOR GROUP B STREPTOCOCCUS BY NUCLEIC ACID AMPLIFICATION Normal [facility] Comment on above: Performed By: #### 2 0438-8 #### [facility] ([id number]) [address], [address] [place] [address] CBC AND AUTO DIFFon 11-06-19 24 ABSOLUTE BASOPHIL 0.0 X10E9/L Normal 0.0-0.2 [facility] Comment on above: Performed By: #### 2 0438-8 #### [facility] ([id number]) [address], [address] [place] [address] ABSOLUTE NEUTROPHIL 3.6 X10E9/L Normal 1.5-6.6 [facility] Comment on above: Performed By: #### 2 0438-8 #### [facility] ([id number]) [address], [address] [place] [address] Basophils/100 WBC (Bld) 0.1 % Normal [facility] Comment on above: Performed By: #### 2 0438-8 #### [facility] ([id number]) [address], [address] [place] [address] Eosinophils (Bld) [#/Vol] 0.1 10*3/uL Normal 0.0-0.4 [facility] Comment on above: Performed By: #### 2 0438-8 #### [facility] ([id number]) [address], [address] [place] [address] Eosinophils/100 WBC (Bld) 1.0 % Normal [facility] Comment on above: Performed By: #### 2 0438-8 #### [facility] ([id number]) [address], [address] [place] [address] Erythrocyte distribution width (RBC) [Ratio] 15.7 % High 11.5-15.0 [facility] Comment on above: Performed By: #### 2 0438-8 #### [facility] ([id number]) [address], [address] [place] [address] Hematocrit (Bld) [Volume fraction] 34.0 % Low 35-47 [facility] Comment on above: Performed By: #### 2 0438-8 #### [facility] ([id number]) [address], [address] [place] [address] Hemoglobin (Bld) [Mass/Vol] 11.6 g/dL Low 11.7-15. 5 [facility] Comment on above: Performed By: #### 2 0438-8 #### [facility] ([id number]) [address], [address] [place] [address] Lymphocytes (Bld) [#/Vol] 1.8 10*3/uL Normal 1.0-3.5 [facility] Comment on above: Performed By: #### 2 0438-8 #### [facility] ([id number]) [address], [address] [place] [address] Lymphocytes/100 WBC (Bld) 30.8 % Normal [facility] Comment on above: Performed By: #### 2 0438-8 #### [facility] ([id number]) [address], [address] [place] [address] MCH (RBC) [Entitic mass] 30.5 pg Normal 27-34 [facility] Comment on above: Performed By: #### 2 0438-8 #### [facility] ([id number]) [address], [address] [place] [address] MCHC (RBC) [Mass/Vol] 34.0 g/dL Normal 32-[address] [facility] Comment on above: Performed By: #### 2 0438-8 #### [facility] ([id number]) [address], [address] [place] [address] MCV (RBC) [Entitic vol] 90 fL Normal 80-100 [facility] Comment on above: Performed By: #### 2 0438-8 #### [facility] ([id number]) [address], [address] [place] [address] Monocytes (Bld) [#/Vol] 0.4 10*3/uL Normal 0-0.9 [facility] Comment on above: Performed By: #### 2 0438-8 #### [facility] ([id number]) [address], [address] [place] [address] Monocytes/100 WBC (Bld) 6.2 % Normal [facility] Comment on above: Performed By: #### 2 0438-8 #### [facility] ([id number]) [address], [address] [place] [address] Neutrophils/100 WBC (Bld) 61.9 % Normal [facility] Comment on above: Performed By: #### 2 0438-8 #### [facility] ([id number]) [address], [address] [place] [address] Platelet mean volume (Bld) [Entitic vol] 8.6 fL Normal 7-12 [facility] Comment on above: Performed By: #### 2 0438-8 #### [facility] ([id number]) [address], [address] [place] [address] Platelets (Bld) [#/Vol] 140 10*3/uL Low 150-450 [facility] Comment on above: Performed By: #### 2 0438-8 #### [facility] ([id number]) [address], [address] [place] [address] RBC COUNT 3.79 X10E12/L Low 3.80-5.20 [facility] Comment on above: Performed By: #### 2 0438-8 #### [facility] ([id number]) [address], [address] [place] [address] WBC (Bld) [#/Vol] 5.8 10*3/uL Normal 4.0-11.0 [facility] Comment on above: Performed By: #### 2 0438-8 #### [facility] ([id number]) [address], [address] [place] [address] COMPREHENSIVE METABOLIC PANE Alex 11-06-2023 Albumin [Mass/Vol] 3.2 g/dL Normal 3.2-5.3 [facility] Comment on above: Performed By: #### 2 0438-8 #### [facility] ([id number]) [address] [place] [address] ALP [Catalytic activity/Vol] 93 U/L Normal 39-130 [facility] Comment on above: Performed By: #### 2 0438-8 #### [facility] ([id number]) [address], [address] [place] [address] ALT [Catalytic activity/Vol] 10 U/L Normal 0-31 [facility] Comment on above: Performed By: #### 2 0438-8 #### [facility] ([id number]) [address], [address] [place] [address] Anion gap [Moles/Vol] 10 mmol/L Normal 5-[address] [facility] Comment on above: Performed By: #### 2 0438-8 #### [facility] ([id number]) [address], [address] [place] [address] AST [Catalytic activity/Vol] 10 U/L Normal 0-41 [facility] Comment on above: Performed By: #### 2 0438-8 #### [facility] ([id number]) [address], [address] [place] [address] Bilirubin [Mass/Vol] 0.4 mg/dL Normal 0.3-1.2 [facility] Comment on above: Performed By: #### 2 0438-8 #### [facility] ([id number]) [address], [address] [place] [address] Calcium [Mass/Vol] 8.5 mg/dL Normal 8.5-10.5 [facility] Comment on above: Performed By: #### 2 0438-8 #### [facility] ([id number]) [address], [address] [place] [address] Chloride [Moles/Vol] 107 mmol/L Normal 98-109 [facility] Comment on above: Performed By: #### 2 0438-8 #### [facility] ([id number]) [address], [address] [place] [address] CO2 [Moles/Vol] 23 mmol/L Normal 22-32 [facility] Comment on above: Performed By: #### 2 0438-8 #### [facility] ([id number]) [address], [address] [place] [address] Creatinine [Mass/Vol] 0.50 mg/dL Normal 0.40-1.[address] [facility] Comment on above: Result Comment: METH OD TRACEABLE TO IDMS STANDARD Performed By: #### 2 0438-8 #### [facility] ([id number]) [address], [address] [place] [address] eGFR (CKD-EPI) NON-RACE DEPENDENT >90 Normal >59 [facility] Comment on above: Result Comment: Reported eGFR is based on the CKD-EPI 2020 equation that does not use a race coefficient. Performed By: #### 2 0438-8 #### [facility] ([id number]) [address], [address] [place] [address] Glucose [Mass/Vol] 79 mg/dL Normal 65-99 [facility] Comment on above: Performed By: #### 2 0438-8 #### [facility] ([id number]) [address], [address] [place] [address] Potassium [Moles/Vol] 3.9 mmol/L Normal 3.5-5.0 [facility] Comment on above: Performed By: #### 2 0438-8 #### [facility] ([id number]) [address], [address] [place] [address] Protein [Mass/Vol] 5.4 g/dL Low 6.0-8.0 [facility] Comment on above: Performed By: #### 2 0438-8 #### [facility] ([id number]) [address], [address] [place] [address] Sodium [Moles/Vol] 140 mmol/L Normal 134-146 [facility] Comment on above: Performed By: #### 2 0438-8 #### [facility] ([id number]) [address], [address] [place] [address] Urea nitrogen [Mass/Vol] 4 mg/dL Low 5-23 [facility] Comment on above: Performed By: #### 2 0438-8 #### [facility] ([id number]) [address], [address] [place] [address] URINALYSISon 10-18-2023 Bilirubin Ql (U) Negative Normal NEG [facility] Comment on above: Performed By: #### 2 0438-8 #### [facility] ([id number]) [address], [address] [place] [address] BLOOD/HGB Trace Abnormal NEG [facility] Comment on above: Performed By: #### 2 0438-8 #### [facility] ([id number]) [address], [address] [place] [address] Color (U) YELLOW Normal YELLOW [facility] Comment on above: Performed By: #### 2 0438-8 #### [facility] ([id number]) [address] [place] [address] Glucose Ql (U) Negative Normal NEG [facility] Comment on above: Performed By: #### 2 0438-8 #### [facility] ([id number]) [address] [place] [address] Ketones Ql (U) 100 mg/dL Abnormal NEG [facility] Comment on above: Performed By: #### 2 0438-8 #### [facility] ([id number]) [address], [address] [place] [address] Leukocyte esterase Test strip Ql (U) Negative Normal NEG [facility] Comment on above: Performed By: #### 2 0438-8 #### [facility] ([id number]) [address] [place] [address] MUCOUS PRESENT Abnormal NONE [facility] Comment on above: Performed By: #### 2 0438-8 #### [facility] ([id number]) [address] [place] [address] Nitrite Ql (U) Negative Normal NEG [facility] Comment on above: Performed By: #### 2 0438-8 #### [facility] ([id number]) [address] [place] [address] pH (U) 5.0 [pH] Normal 5.0-8.5 [facility] Comment on above: Performed By: #### 2 0438-8 #### [facility] ([id number]) [address] [place] [address] Protein Ql (U) Negative Normal NEG [facility] Comment on above: Performed By: #### 2 0438-8 #### [facility] ([id number]) [address] [place] [address] R.B.CELLS 2 /hpf Normal 0-5 [facility] Comment on above: Performed By: #### 2 0438-8 #### [facility] ([id number]) [address] [place] [address] Specific gravity (U) [Rel density] 1.017 Normal 1.003-1.035 [facility] Comment on above: Performed By: #### 2 0438-8 #### [facility] ([id number]) [address] [place] [address] SQUAMOUS EPITHELIUM 1 /hpf Normal 0-5 [facility] Comment on above: Performed By: #### 2 0438-8 #### [facility] ([id number]) [address], [facility] [address] [place] [address] TURBIDITY CLEAR Normal CLEAR [facility] Comment on above: Performed By: #### 2 0438-8 #### [facility] ([id number]) [address], [address] [place] [address] Urinalysis dipstick W Reflex Microscopic panel (U) URINE RECEIVED WITHOUT PRESERVATIVE-DELAY S IN TRANSPORT MAY AFFECT RESULTS.INTERPRET WITH CAUTION AND CLINICAL CORRELATION IS RECOMMENDED. Normal [facility] Comment on above: Performed By: #### 2 0438-8 #### [facility] ([id number]) [address], [address] [place] [address] Urobilinogen (U) [Mass/Vol] mg/dL Normal <1.1 [facility] Comment on above: Performed By: #### 2 0438-8 #### [facility] ([id number]) [address], [address] [place] [address] W.B.CELLS <1 Normal 0-5 [facility] Comment on above: Performed By: #### 2 0438-8 #### [facility] ([id number]) [address] [place] [address] CBC AND AUTO DIFFon 10-14-19 24 ABSOLUTE BASOPHIL 0.0 X10E9/L Normal 0.0-0.2 [facility] Comment on above: Performed By: #### C MED, CMP #### [facility] ([id number]) [address], [facility] [address] [place] [address] ABSOLUTE NEUTROPHIL 4.5 X10E9/L Normal 1.5-6.6 [facility] Comment on above: Performed By: #### C MED, CMP #### [facility] ([id number]) [address], [address] [address] Basophils/100 WBC (Bld) 0.2 % Normal [facility] Comment on above: Performed By: #### C MED, CMP #### [facility] ([id number]) [address] [address] Eosinophils (Bld) [#/Vol] 0.1 10*3/uL Normal 0.0-0.4 [facility] Comment on above: Performed By: #### C MED, CMP #### [facility] ([id number]) [address], [address] [address] Eosinophils/100 WBC (Bld) 2.0 % Normal [facility] Comment on above: Performed By: #### Silvano JOVEL, CMP #### [facility] ([id number]) [address] [address] Erythrocyte distribution width (RBC) [Ratio] 16.7 % High 11.5-15.0 [facility] Comment on above: Performed By: #### C MED, CMP #### [facility] ([id number]) [address] [address] [place] [address] Hematocrit (Bld) [Volume fraction] 35.4 % Normal 35-47 [facility] Comment on above: Performed By: #### C MED, CMP #### [facility] ([id number]) [address], [address] [place] [address] Hemoglobin (Bld) [Mass/Vol] 12.0 g/dL Normal 11.7-15. 5 [facility] Comment on above: Performed By: #### C BCA, CMP #### [facility] ([id number]) [address], [address] [place] [address] Lymphocytes (Bld) [#/Vol] 1.5 10*3/uL Normal 1.0-3.5 [facility] Comment on above: Performed By: #### C MED, CMP #### [facility] ([id number]) [address] [place] [address] Lymphocytes/100 WBC (Bld) 23.7 % Normal [facility] Comment on above: Performed By: #### C BCA, CMP #### [facility] ([id number]) [address] [place] [address] MCH (RBC) [Entitic mass] 30.7 pg Normal 27-34 [facility] Comment on above: Performed By: #### C BCA, CMP #### [facility] ([id number]) [address], [address] [place] [address] MCHC (RBC) [Mass/Vol] 34.1 g/dL Normal 32-[address] [facility] Comment on above: Performed By: #### C BCA, CMP #### [facility] ([id number]) [address], [address] [place] [address] MCV (RBC) [Entitic vol] 90 fL Normal 80-100 [facility] Comment on above: Performed By: #### C BCA, CMP #### [facility] ([id number]) [address], [address] [place] [address] Monocytes (Bld) [#/Vol] 0.3 10*3/uL Normal 0-0.9 [facility] Comment on above: Performed By: #### C BCA, CMP #### [facility] ([id number]) [address], [address] [place] [address] Monocytes/100 WBC (Bld) 5.2 % Normal [facility] Comment on above: Performed By: #### C BCA, CMP #### [facility] ([id number]) [address], [address] [place] [address] Neutrophils/100 WBC (Bld) 68.9 % Normal [facility] Comment on above: Performed By: #### C BCA, CMP #### [facility] ([id number]) [address], [address] [place] [address] Platelet mean volume (Bld) [Entitic vol] 8.7 fL Normal 7-12 [facility] Comment on above: Performed By: #### C BCA, CMP #### [facility] ([id number]) [address], [address] [place] [address] Platelets (Bld) [#/Vol] 158 10*3/uL Normal 150-450 [facility] Comment on above: Performed By: #### C BCA, CMP #### [facility] ([id number]) [address], [address] [place] [address] RBC COUNT 3.93 X10E12/L Normal 3.80-5.20 [facility] Comment on above: Performed By: #### C BCA, CMP #### [facility] ([id number]) [address] [place] [address] WBC (Bld) [#/Vol] 6.5 10*3/uL Normal 4.0-11.0 [facility] Comment on above: Performed By: #### C BCA, CMP #### [facility] ([id number]) [address], [address] [place] [address] COMPREHENSIVE METABOLIC PANE Alex 10-14-2023 Albumin [Mass/Vol] 3.4 g/dL Normal 3.2-5.3 [facility] Comment on above: Performed By: #### C BCA, CMP #### [facility] ([id number]) [address], [address] [place] [address] ALP [Catalytic activity/Vol] 75 U/L Normal 39-130 [facility] Comment on above: Performed By: #### C BCA, CMP #### [facility] ([id number]) [address], [address] [place] [address] ALT [Catalytic activity/Vol] 13 U/L Normal 0-31 [facility] Comment on above: Performed By: #### C BCA, CMP #### [facility] ([id number]) [address], [address] [place] [address] Anion gap [Moles/Vol] 10 mmol/L Normal 5-[address] [facility] Comment on above: Performed By: #### C BCA, CMP #### [facility] ([id number]) [address], [address] [place] [address] AST [Catalytic activity/Vol] 18 U/L Normal 0-41 [facility] Comment on above: Performed By: #### C BCA, CMP #### [facility] ([id number]) [address], [address] [place] [address] Bilirubin [Mass/Vol] 0.4 mg/dL Normal 0.3-1.2 [facility] Comment on above: Performed By: #### C BCA, CMP #### [facility] ([id number]) [address], [address] [place] [address] Calcium [Mass/Vol] 9.0 mg/dL Normal 8.5-10.5 [facility] Comment on above: Performed By: #### C BCA, CMP #### [facility] ([id number]) [address], [address] [place] [address] Chloride [Moles/Vol] 103 mmol/L Normal 98-109 [facility] Comment on above: Performed By: #### C BCA, CMP #### [facility] ([id number]) [address], [address] [place] [address] CO2 [Moles/Vol] 22 mmol/L Normal 22-32 [facility] Comment on above: Performed By: #### C BCA, CMP #### [facility] ([id number]) [address] [address] [address] [place] [address] Creatinine [Mass/Vol] 0.51 mg/dL Normal 0.40-1.[address] [facility] Comment on above: Result Comment: METH OD TRACEABLE TO IDMS STANDARD Performed By: #### C BCA, CMP #### [facility] ([id number]) [address], [address] [place] [address] eGFR (CKD-EPI) NON-RACE DEPENDENT >90 Normal >59 [facility] Comment on above: Result Comment: Reported eGFR is based on the CKD-EPI 2020 equation that does not use a race coefficient. Performed By: #### C BCA, CMP #### [facility] ([id number]) [address], [address] [place] [address] Glucose [Mass/Vol] 100 mg/dL High 65-99 [facility] Comment on above: Performed By: #### C BCA, CMP #### [facility] ([id number]) [address] [address] [place] [address] Potassium [Moles/Vol] 3.4 mmol/L Low 3.5-5.[address] [facility] Comment on above: Performed By: #### C BCA, CMP #### [facility] ([id number]) [address], [address] [place] [address] Protein [Mass/Vol] 6.2 g/dL Normal 6.0-8.0 [facility] Comment on above: Performed By: #### C BCA, CMP #### [facility] ([id number]) [address], [address] [place] [address] Sodium [Moles/Vol] 135 mmol/L Normal 134-146 [facility] Comment on above: Performed By: #### C BCA, CMP #### [facility] ([id number]) [address], [address] [place] [place] [address] Urea nitrogen [Mass/Vol] 4 mg/dL Low 5-23 [facility] Comment on above: Performed By: #### C BCA, CMP #### [facility] ([id number]) [address] [address] [place] [address] CBC AND AUTO DIFFon 10-08-19 24 ABSOLUTE BASOPHIL 0.0 X10E9/L Normal 0.0-0.2 [facility] Comment on above: Performed By: #### C BCA, CMP #### [facility] ([id number]) [address] [place] [address] ABSOLUTE NEUTROPHIL 4.9 X10E9/L Normal 1.5-6.6 [facility] Comment on above: Performed By: #### C BCA, CMP #### [facility] ([id number]) [address] [address] [place] [address] Basophils/100 WBC (Bld) 0.2 % Normal [facility] Comment on above: Performed By: #### C BCA, CMP #### [facility] ([id number]) [address] [address] [place] [address] Eosinophils (Bld) [#/Vol] 0.1 10*3/uL Normal 0.0-0.4 [facility] Comment on above: Performed By: #### C BCA, CMP #### [facility] ([id number]) [address], [address] [place] [address] Eosinophils/100 WBC (Bld) 1.3 % Normal [facility] Comment on above: Performed By: #### C BCA, CMP #### [facility] ([id number]) [address], [address] [place] [address] Erythrocyte distribution width (RBC) [Ratio] 16.5 % High 11.5-15.0 [facility] Comment on above: Performed By: #### C MED, CMP #### [facility] ([id number]) [address] [address] [place] [address] Hematocrit (Bld) [Volume fraction] 35.8 % Normal 35-47 [facility] Comment on above: Performed By: #### C MED, CMP #### [facility] ([id number]) [address] [address] [place] [address] Hemoglobin (Bld) [Mass/Vol] 12.1 g/dL Normal 11.7-15. 5 [facility] Comment on above: Performed By: #### C MED, CMP #### [facility] ([id number]) [address] [place] [address] Lymphocytes (Bld) [#/Vol] 1.3 10*3/uL Normal 1.0-3.5 [facility] Comment on above: Performed By: #### C BCA, CMP #### [facility] ([id number]) [address], [address] [place] [address] Lymphocytes/100 WBC (Bld) 18.8 % Normal [facility] Comment on above: Performed By: #### C BCA, CMP #### [facility] ([id number]) [address], [address] [place] [address] MCH (RBC) [Entitic mass] 30.3 pg Normal 27-34 [facility] Comment on above: Performed By: #### C BCA, CMP #### [facility] ([id number]) [address] [place] [address] MCHC (RBC) [Mass/Vol] 33.7 g/dL Normal 32-[address] [facility] Comment on above: Performed By: #### C BCA, CMP #### [facility] ([id number]) [address], [address] [place] [address] MCV (RBC) [Entitic vol] 90 fL Normal 80-100 [facility] Comment on above: Performed By: #### C BCA, CMP #### [facility] ([id number]) [address], [address] [place] [address] Monocytes (Bld) [#/Vol] 0.4 10*3/uL Normal 0-0.9 [facility] Comment on above: Performed By: #### C BCA, CMP #### [facility] ([id number]) [address], [address] [place] [address] Monocytes/100 WBC (Bld) 5.3 % Normal [facility] Comment on above: Performed By: #### C BCA, CMP #### [facility] ([id number]) [address], [address] [place] [address] Neutrophils/100 WBC (Bld) 74.4 % Normal [facility] Comment on above: Performed By: #### C BCA, CMP #### [facility] ([id number]) [address], [address] [place] [address] Platelet mean volume (Bld) [Entitic vol] 8.6 fL Normal 7-12 [facility] Comment on above: Performed By: #### C BCA, CMP #### [facility] ([id number]) [address], [address] [place] [address] Platelets (Bld) [#/Vol] 161 10*3/uL Normal 150-450 [facility] Comment on above: Performed By: #### C BCA, CMP #### [facility] ([id number]) [address] [place] [address] RBC COUNT 3.98 X10E12/L Normal 3.80-5.20 [facility] Comment on above: Performed By: #### C BCA, CMP #### [facility] ([id number]) [address], [address] [place] [address] WBC (Bld) [#/Vol] 6.7 10*3/uL Normal 4.0-11.0 [facility] Comment on above: Performed By: #### C BCA, CMP #### [facility] ([id number]) [address], [address] [place] [address] COMPREHENSIVE METABOLIC PANE Alex 10-08-2023 Albumin [Mass/Vol] 3.7 g/dL Normal 3.2-5.3 [facility] Comment on above: Performed By: #### C BCA, CMP #### [facility] ([id number]) [address], [address] [place] [address] ALP [Catalytic activity/Vol] 79 U/L Normal 39-130 [facility] Comment on above: Performed By: #### C BCA, CMP #### [facility] ([id number]) [address], [address] [place] [address] ALT [Catalytic activity/Vol] 16 U/L Normal 0-31 [facility] Comment on above: Performed By: #### C BCA, CMP #### [facility] ([id number]) [address], [address] [place] [address] Anion gap [Moles/Vol] 9 mmol/L Normal 5-[address] [facility] Comment on above: Performed By: #### C BCA, CMP #### [facility] ([id number]) [address], [address] [place] [address] AST [Catalytic activity/Vol] 15 U/L Normal 0-41 [facility] Comment on above: Performed By: #### C BCA, CMP #### [facility] ([id number]) [address], [address] [place] [address] Bilirubin [Mass/Vol] 0.4 mg/dL Normal 0.3-1.2 [facility] Comment on above: Performed By: #### C BCA, CMP #### [facility] ([id number]) [address], [address] [place] [address] Calcium [Mass/Vol] 8.4 mg/dL Low 8.5-10.5 [facility] Comment on above: Performed By: #### C BCA, CMP #### [facility] ([id number]) [address] [place] [address] Chloride [Moles/Vol] 104 mmol/L Normal 98-109 [facility] Comment on above: Performed By: #### C BCA, CMP #### [facility] ([id number]) [address], [address] [place] [address] CO2 [Moles/Vol] 23 mmol/L Normal 22-32 [facility] Comment on above: Performed By: #### C BCA, CMP #### [facility] ([id number]) [address], [address] [place] [address] Creatinine [Mass/Vol] 0.44 mg/dL Normal 0.40-1.[address] [facility] Comment on above: Result Comment: METH OD TRACEABLE TO IDMS STANDARD Performed By: #### C BCA, CMP #### [facility] ([id number]) [address] [place] [address] eGFR (CKD-EPI) NON-RACE DEPENDENT >90 Normal >59 [facility] Comment on above: Result Comment: Reported eGFR is based on the CKD-EPI 2020 equation that does not use a race coefficient. Performed By: #### C BCA, CMP #### [facility] ([id number]) [address], [address] [place] [address] Glucose [Mass/Vol] 103 mg/dL High 65-99 [facility] Comment on above: Performed By: #### C BCA, CMP #### [facility] ([id number]) [address] [address] [place] [address] Potassium [Moles/Vol] 3.7 mmol/L Normal 3.5-5.[address] [facility] Comment on above: Performed By: #### C BCA, CMP #### [facility] ([id number]) [address] [address] [place] [address] Protein [Mass/Vol] 6.3 g/dL Normal 6.0-8.0 [facility] Comment on above: Performed By: #### C BCA, CMP #### [facility] ([id number]) [address], [address] [place] [address] Sodium [Moles/Vol] 136 mmol/L Normal 134-146 [facility] Comment on above: Performed By: #### C BCA, CMP #### [facility] ([id number]) [address] [address] [place] [address] Urea nitrogen [Mass/Vol] 5 mg/dL Normal 5-23 [facility] Comment on above: Performed By: #### C BCA, CMP #### [facility] ([id number]) [address] [address] [place] [address] RESP PATHOGENS/DDLW-MiE-0cc 10-08-2023 Respiratory pathogens DNA and RNA panel [...] 2 Not detected (qualifier value) NOTE The HemoSonicse Respiratory Panel 2.1 (RP2.1) is a multiplexed [...] patient with possible respiratory tract infection. Normal [facility] Comment on above: Performed By: #### 8 2159-5 #### [facility] ([id number]) [address] [address] CBC AND AUTO DIFFon 09-23-20 ABSOLUTE BASOPHIL 0.0 X10E9/L Normal 0.0-0.2 [facility] Comment on above: Performed By: #### Silvano JOVEL, 32500-3, 94941-5 #### [facility] ([id number]) [address] [address] ABSOLUTE NEUTROPHIL 4.1 X10E9/L Normal 1.5-6.6 [facility] Comment on above: Performed By: #### Silvano JOVEL, 67642-2, 82520-6 #### [facility] ([id number]) [address] [address] Basophils/100 WBC (Bld) 0.5 % Normal [facility] Comment on above: Performed By: #### Silvano JOVEL, 65255-4, 71095-4 #### [facility] ([id number]) [address] [address] Eosinophils (Bld) [#/Vol] 0.1 10*3/uL Normal 0.0-0.4 [facility] Comment on above: Performed By: #### Silvano JOVEL, 34818-2, 02268-2 #### [facility] ([id number]) [address] [address] Eosinophils/100 WBC (Bld) 1.6 % Normal [facility] Comment on above: Performed By: #### Silvano JOVEL, 32160-6, 35897-3 #### [facility] ([id number]) [address] [place] [address] Erythrocyte distribution width (RBC) [Ratio] 15.5 % High 11.5-15.0 [facility] Comment on above: Performed By: #### Silvano JOVEL, 41492-3, 53172-9 #### [facility] ([id number]) [address] [place] [address] Hematocrit (Bld) [Volume fraction] 32.8 % Low 35-47 [facility] Comment on above: Performed By: #### Silvano JOVEL, 73416-2, 44356-0 #### [facility] ([id number]) [address] [place] [address] Hemoglobin (Bld) [Mass/Vol] 11.4 g/dL Low 11.7-15. 5 [facility] Comment on above: Performed By: #### Silvano JOVEL, 24773-9, 05118-1 #### [facility] ([id number]) [address] [place] [address] Lymphocytes (Bld) [#/Vol] 1.7 10*3/uL Normal 1.0-3.5 [facility] Comment on above: Performed By: #### Silvano JOVEL, 39473-1, 25347-3 #### [facility] ([id number]) [address] [place] [address] Lymphocytes/100 WBC (Bld) 26.9 % Normal [facility] Comment on above: Performed By: #### Silvano JOVEL, 00735-3, 82238-4 #### [facility] ([id number]) [address], [address] [place] [address] MCH (RBC) [Entitic mass] 31.1 pg Normal 27-34 [facility] Comment on above: Performed By: #### Silvano JOVEL, 91622-7, 04236-8 #### [facility] ([id number]) [address] [place] [address] MCHC (RBC) [Mass/Vol] 34.7 g/dL Normal 32-[address] [facility] Comment on above: Performed By: #### Silvano JOVEL, 21368-4, 75467-0 #### [facility] ([id number]) [address], [address] [place] [address] MCV (RBC) [Entitic vol] 90 fL Normal 80-100 [facility] Comment on above: Performed By: #### Silvano JOVEL, 12021-7, 21369-0 #### [facility] ([id number]) [address] [place] [address] Monocytes (Bld) [#/Vol] 0.5 10*3/uL Normal 0-0.9 [facility] Comment on above: Performed By: #### Silvano JOVEL, 01656-1, 49528-1 #### [facility] ([id number]) [address], [address] [place] [address] Monocytes/100 WBC (Bld) 7.2 % Normal [facility] Comment on above: Performed By: #### Silvano JOVEL, 74278-4, 02801-5 #### [facility] ([id number]) [address], [address] [place] [address] Neutrophils/100 WBC (Bld) 63.8 % Normal [facility] Comment on above: Performed By: #### Silvano JOVEL, 15764-3, 68930-1 #### [facility] ([id number]) [address], [address] [place] [address] Platelet mean volume (Bld) [Entitic vol] 8.8 fL Normal 7-12 [facility] Comment on above: Performed By: #### Silvano JOVEL, 60771-8, 93671-5 #### [facility] ([id number]) [address], [address] [place] [address] Platelets (Bld) [#/Vol] 178 10*3/uL Normal 150-450 [facility] Comment on above: Performed By: #### Silvano JOVEL, 91596-3, 03432-7 #### [facility] ([id number]) [address] [place] [address] RBC COUNT 3.66 X10E12/L Low 3.80-5.20 [facility] Comment on above: Performed By: #### Silvano JOVEL, 31345-1, 79178-0 #### [facility] ([id number]) [address], [address] [address] WBC (Bld) [#/Vol] 6.5 10*3/uL Normal 4.0-11.0 [facility] Comment on above: Performed By: #### Silvano JOVEL, 67336-2, 00438-7 #### [facility] ([id number]) [address], [address] [address] HIV 1+2 Ab+HIV1 p24 Ag IA Ql on 09-23-2023 HIV 1 and 2 Ab/Ag Screen Non-Reactive Normal NRCT [facility] Comment on above: Result Comment: This [...] or diagnoses. Performed By: #### Silvano JOVEL, 56803-2, 76090-8 #### [facility] ([id number]) [address] [place] [address] T. pallidum IgG+IgM IA Ql (S )on 09-23-2023 Syphilis Total <0.2 Normal 0.0-0.8 [facility] Comment on above: Result Comment: NON REACTIVE No serologic evidence of infection to Treponema pallidum (syphilis). Repeat testing may be considered in patients with suspected acute or primary syphilis in 2 to 4 weeks. Performed By: #### C BCA, 80755-4, 46765-9 #### [facility] ([id number]) [address] [place] [address] Glucose 1 Hr post dose gluco se [Mass/Vol]on 09-21-2023 1ST HR GTT 105 mg/dL Low 120-170 [facility] Comment on above: Performed By: #### 2 0438-8 #### [facility] ([id number]) [address] [place] [address] CBC AND AUTO DIFFon 09-16-20 ABSOLUTE BASOPHIL 0.0 X10E9/L Normal 0.0-0.2 [facility] Comment on above: Performed By: #### C BCA #### [facility] ([id number]) [address], [address] [place] [address] ABSOLUTE NEUTROPHIL 3.8 X10E9/L Normal 1.5-6.6 [facility] Comment on above: Performed By: #### C BCA #### [facility] ([id number]) [address] [place] [address] Basophils/100 WBC (Bld) 0.2 % Normal [facility] Comment on above: Performed By: #### C BCA #### [facility] ([id number]) [address] [place] [address] Eosinophils (Bld) [#/Vol] 0.1 10*3/uL Normal 0.0-0.4 [facility] Comment on above: Performed By: #### C BCA #### [facility] ([id number]) [address] [place] [address] Eosinophils/100 WBC (Bld) 1.6 % Normal [facility] Comment on above: Performed By: #### C BCA #### [facility] ([id number]) [address] [place] [address] Erythrocyte distribution width (RBC) [Ratio] 14.8 % Normal 11.5-15.0 [facility] Comment on above: Performed By: #### C BCA #### [facility] ([id number]) [address] [place] [address] Hematocrit (Bld) [Volume fraction] 32.5 % Low 35-47 [facility] Comment on above: Performed By: #### C BCA #### [facility] ([id number]) [address] [place] [address] Hemoglobin (Bld) [Mass/Vol] 11.0 g/dL Low 11.7-15. 5 [facility] Comment on above: Performed By: #### C BCA #### [facility] ([id number]) [address], [address] [place] [address] Lymphocytes (Bld) [#/Vol] 1.7 10*3/uL Normal 1.0-3.5 [facility] Comment on above: Performed By: #### C BCA #### [facility] ([id number]) [address] [place] [address] Lymphocytes/100 WBC (Bld) 28.2 % Normal [facility] Comment on above: Performed By: #### C BCA #### [facility] ([id number]) [address], [address] [place] [address] MCH (RBC) [Entitic mass] 29.6 pg Normal 27-34 [facility] Comment on above: Performed By: #### C BCA #### [facility] ([id number]) [address] [place] [address] MCHC (RBC) [Mass/Vol] 34.0 g/dL Normal 32-[address] [facility] Comment on above: Performed By: #### C BCA #### [facility] ([id number]) [address] [place] [address] MCV (RBC) [Entitic vol] 87 fL Normal 80-100 [facility] Comment on above: Performed By: #### C BCA #### [facility] ([id number]) [address] [place] [address] Monocytes (Bld) [#/Vol] 0.4 10*3/uL Normal 0-0.9 [facility] Comment on above: Performed By: #### C BCA #### [facility] ([id number]) [address] [place] [address] Monocytes/100 WBC (Bld) 7.3 % Normal [facility] Comment on above: Performed By: #### C BCA #### [facility] ([id number]) [address] [place] [address] Neutrophils/100 WBC (Bld) 62.7 % Normal [facility] Comment on above: Performed By: #### C BCA #### [facility] ([id number]) [address] [place] [address] Platelet mean volume (Bld) [Entitic vol] 9.0 fL Normal 7-12 [facility] Comment on above: Performed By: #### C BCA #### [facility] ([id number]) [address] [place] [address] Platelets (Bld) [#/Vol] 163 10*3/uL Normal 150-450 [facility] Comment on above: Performed By: #### C BCA #### [facility] ([id number]) [address] [place] [address] RBC COUNT 3.73 X10E12/L Low 3.80-5.20 [facility] Comment on above: Performed By: #### C BCA #### [facility] ([id number]) [address] [place] [address] WBC (Bld) [#/Vol] 6.0 10*3/uL Normal 4.0-11.0 [facility] Comment on above: Performed By: #### C BCA #### [facility] ([id number]) [address] [place] [address] Alanine aminotransferase [En zymatic activity/volume] in Serum or PlasmaOrdered By: Mishel Dimas on 03-26-2023 ALT [Catalytic activity/Vol] 13 U/L 7-52 [facility] Albumin [Mass/volume] in Ser um or Plasma by Bromocresol green (BCG) dye binding methoOrdered By: Mishel Dimas on 03-26-2023 Albumin BCG dye [Mass/Vol] 4.8 g/dL 3.5-5.7 [facility] Alkaline phosphatase [Enzyma tic activity/volume] in Serum or PlasmaOrdered By: Mishel Dimas on 03-26-2023 ALP [Catalytic activity/Vol] 60 U/L 34-104 [facility] Aspartate aminotransferase [ Enzymatic activity/volume] in Serum or PlasmaOrdered By: Mishel Dimas on 03-26-2023 AST [Catalytic activity/Vol] 18 U/L 13-39 [facility] Basophils Auto (Bld) [#/Vol] Ordered By: Mishel Dimas on 03-26-2023 Basophils (Bld) [#/Vol] 0.0 10*3/uL 0.0-0.2 [facility] Basophils/100 WBC Auto (Bld) Ordered By: Mishel Dimas on 03-26-2023 Basophils/100 WBC (Bld) 0.4 % . F [facility] Bilirubin.total [Mass/volume ] in Serum or PlasmaOrdered By: Mishel Dimas on 03-26-2023 Bilirubin [Mass/Vol] 0.5 mg/dL 0.3-1.0 [facility] Calcium [Mass/volume] in Ser um or PlasmaOrdered By: Mishel Dimas on 03-26-2023 Calcium [Mass/Vol] 9.5 mg/dL 8.6-10.3 [facility] Carbon dioxide, total [Moles /volume] in Serum or PlasmaOrdered By: Mishel Dimas on 03-26-2023 CO2 [Moles/Vol] 27.7 mmol/L 21.0-31.0 [facility] Chloride [Moles/volume] in S griffin or PlasmaOrdered By: Mishel Dimas on 03-26-2023 Chloride [Moles/Vol] 107 mmol/L 98-107 [facility] Complete Blood Count Auto Di ffon 03-26-2023 Basophils (Bld) [#/Vol] 0.0 10*3/uL Normal 0.0-0.2 [facility] Comment on above: Order Comment: Reaso n for Exam Wellness examination;Screening for metabolic disorder;Screen Result Comment: PERF ORMED BY: [place] [address] PATHOLOGIST [employer] TECHNICIAN ELYSE WHIPPLE M.D. Performed By: #### T SH3 wRFLX, CMP, CBC #### [facility] [address] Basophils/100 WBC (Bld) 0.4 % Normal . [facility] Comment on above: Order Comment: Reaso n for Exam Wellness examination;Screening for metabolic disorder;Screen Performed By: #### T SH3 wRFLX, CMP, CBC #### [facility] [address] [place] [id number] [place] Eosinophils (Bld) [#/Vol] 0.1 10*3/uL Normal 0.0-0.45 [facility] Comment on above: Order Comment: Reaso n for Exam Wellness examination;Screening for metabolic disorder;Screen Performed By: #### T SH3 wRFLX, CMP, CBC #### [facility] [address] [place] [address] [place] Eosinophils/100 WBC (Bld) 2.7 % Normal . [facility] Comment on above: Order Comment: Reaso n for Exam Wellness examination;Screening for metabolic disorder;Screen Performed By: #### T SH3 wRFLX, CMP, CBC #### [address] Erythrocyte distribution width (RBC) [Ratio] 15.2 % Normal 11.9-15.3 [facility] Comment on above: Order Comment: Reaso n for Exam Wellness examination;Screening for metabolic disorder;Screen Performed By: #### T SH3 wRFLX, CMP, CBC #### [place] [address] [place] Hematocrit (Bld) [Volume fraction] 39.5 % Normal 34.0-46.4 [facility] Comment on above: Order Comment: Reaso n for Exam Wellness examination;Screening for metabolic disorder;Screen Performed By: #### T SH3 wRFLX, CMP, CBC #### [place] [id number] [place] Hemoglobin (Bld) [Mass/Vol] 13.3 g/dL Normal 11.8-15. 4 [facility] Comment on above: Order Comment: Reaso n for Exam Wellness examination;Screening for metabolic disorder;Screen Performed By: #### T SH3 wRFLX, CMP, CBC #### [place] [id number] [place] Lymphocytes (Bld) [#/Vol] 1.4 10*3/uL Normal 1.00-4.8 [facility] Comment on above: Order Comment: Reaso n for Exam Wellness examination;Screening for metabolic disorder;Screen Performed By: #### T SH3 wRFLX, CMP, CBC #### [place] [id number] [place] Lymphocytes/100 WBC (Bld) 35.6 % Normal . [facility] Comment on above: Order Comment: Reaso n for Exam Wellness examination;Screening for metabolic disorder;Screen Performed By: #### T SH3 wRFLX, CMP, CBC #### [facility] [address] [place] [address] MCH (RBC) [Entitic mass] 28.5 pg Normal 24.7-34.3 [facility] Comment on above: Order Comment: Reaso n for Exam Wellness examination;Screening for metabolic disorder;Screen Performed By: #### T SH3 wRFLX, CMP, CBC #### [address] [address] MCV (RBC) [Entitic vol] 85.1 fL Normal 80-100 [facility] Comment on above: Order Comment: Reaso n for Exam Wellness examination;Screening for metabolic disorder;Screen Performed By: #### T SH3 wRFLX, CMP, CBC #### [address] Mean Corpuscular HGB Conc 33.5 g/dL Normal 32.0-35.0 [facility] Comment on above: Order Comment: Reaso n for Exam Wellness examination;Screening for metabolic disorder;Screen Performed By: #### T SH3 wRFLX, CMP, CBC #### [address] Monocytes (Bld) [#/Vol] 0.2 10*3/uL Normal 0.0-0.8 [facility] Comment on above: Order Comment: Reaso n for Exam Wellness examination;Screening for metabolic disorder;Screen Performed By: #### T SH3 wRFLX, CMP, CBC #### [place] [address] [place] Monocytes/100 WBC (Bld) 5.3 % Normal . [facility] Comment on above: Order Comment: Reaso n for Exam Wellness examination;Screening for metabolic disorder;Screen Performed By: #### T SH3 wRFLX, CMP, CBC #### [facility] [address] [place] [address] Neutrophils (Bld) [#/Vol] 2.2 10*3/uL Normal 1.8-7.7 [facility] Comment on above: Order Comment: Reaso n for Exam Wellness examination;Screening for metabolic disorder;Screen Performed By: #### T SH3 wRFLX, CMP, CBC #### [facility] [address] [place] [address] [place] Neutrophils/100 WBC (Bld) 56.0 % Normal . [facility] Comment on above: Order Comment: Reaso n for Exam Wellness examination;Screening for metabolic disorder;Screen Performed By: #### T SH3 wRFLX, CMP, CBC #### [facility] [address] [place] [address] [place] NRBC% 0.3 /100{WBC} Normal 0-0.5 [facility] Comment on above: Order Comment: Reaso n for Exam Wellness examination;Screening for metabolic disorder;Screen Performed By: #### T SH3 wRFLX, CMP, CBC #### [facility] [address] [place] [address] [place] Platelet mean volume (Bld) [Entitic vol] 9.4 fL Normal 6.3-10.7 [facility] Comment on above: Order Comment: Reaso n for Exam Wellness examination;Screening for metabolic disorder;Screen Performed By: #### T SH3 wRFLX, CMP, CBC #### [facility] [address] [place] [id number] [place] Platelets (Bld) [#/Vol] 185 10*3/uL Normal 150-450 [facility] Comment on above: Order Comment: Reaso n for Exam Wellness examination;Screening for metabolic disorder;Screen Performed By: #### T SH3 wRFLX, CMP, CBC #### [facility] [address] [place] [address] [place] RBC (Bld) [#/Vol] 4.65 10*6/uL Normal 3.60-5.00 [facility] Comment on above: Order Comment: Reaso n for Exam Wellness examination;Screening for metabolic disorder;Screen Performed By: #### T SH3 wRFLX, CMP, CBC #### [facility] [address] [place] [address] [place] WBC (Bld) [#/Vol] 3.9 10*3/uL Normal 3.8-11.6 [facility] Comment on above: Order Comment: Reaso n for Exam Wellness examination;Screening for metabolic disorder;Screen Performed By: #### T SH3 wRFLX, CMP, CBC #### [facility] [address] Comprehensive Metabolic Pane alex 03-26-2023 Albumin [Mass/Vol] 4.8 g/dL Normal 3.5-5.7 [facility] Comment on above: Order Comment: Reaso n for Exam Wellness examination;Screening for metabolic disorder;Screen Performed By: #### T SH3 wRFLX, CMP, CBC #### [facility] [address] Albumin/Globulin [Mass ratio] 1.9 {ratio} Normal [facility] Comment on above: Order Comment: Reaso n for Exam Wellness examination;Screening for metabolic disorder;Screen Performed By: #### T SH3 wRFLX, CMP, CBC #### [address] ALP [Catalytic activity/Vol] 60 U/L Normal 34-104 [facility] Comment on above: Order Comment: Reaso n for Exam Wellness examination;Screening for metabolic disorder;Screen Performed By: #### T SH3 wRFLX, CMP, CBC #### [facility] [address] ALT [Catalytic activity/Vol] 13 U/L Normal 7-52 [facility] Comment on above: Order Comment: Reaso n for Exam Wellness examination;Screening for metabolic disorder;Screen Performed By: #### T SH3 wRFLX, CMP, CBC #### [facility] [address] [place] [id number] [facility] Anion gap [Moles/Vol] 9.8 mmol/L Normal 6.0-15.0 [facility] Comment on above: Order Comment: Reaso n for Exam Wellness examination;Screening for metabolic disorder;Screen Performed By: #### T SH3 wRFLX, CMP, CBC #### [facility] [address] [place] [address] [place] AST [Catalytic activity/Vol] 18 U/L Normal 13-39 [facility] Comment on above: Order Comment: Reaso n for Exam Wellness examination;Screening for metabolic disorder;Screen Performed By: #### T SH3 wRFLX, CMP, CBC #### [facility] [address] Bilirubin [Mass/Vol] 0.5 mg/dL Normal 0.3-1.0 [facility] Comment on above: Order Comment: Reaso n for Exam Wellness examination;Screening for metabolic disorder;Screen Performed By: #### T SH3 wRFLX, CMP, CBC #### [facility] [address] Calcium [Mass/Vol] 9.5 mg/dL Normal 8.6-10.3 [facility] Comment on above: Order Comment: Reaso n for Exam Wellness examination;Screening for metabolic disorder;Screen Performed By: #### T SH3 wRFLX, CMP, CBC #### [facility] [address] [place] [id number] [place] Chloride [Moles/Vol] 107 mmol/L Normal 98-107 [facility] Comment on above: Order Comment: Reaso n for Exam Wellness examination;Screening for metabolic disorder;Screen Performed By: #### T SH3 wRFLX, CMP, CBC #### [facility] [address] [place] [id number] [place] CO2 [Moles/Vol] 27.7 mmol/L Normal 21.0-31.0 [facility] Comment on above: Order Comment: Reaso n for Exam Wellness examination;Screening for metabolic disorder;Screen Performed By: #### T SH3 wRFLX, CMP, CBC #### [facility] [address] [place] [id number] [place] Creatinine [Mass/Vol] 0.74 mg/dL Normal 0.60-1.20 [facility] Comment on above: Order Comment: Reaso n for Exam Wellness examination;Screening for metabolic disorder;Screen Performed By: #### T SH3 wRFLX, CMP, CBC #### [facility] [address] [place] [id number] [place] GFR/1.73 sq M.predicted MDRD (S/P/Bld) [Vol rate/Area] mL/min/{1.73_m2} Normal [facility] Comment on above: Order Comment: Reaso n for Exam Wellness examination;Screening for metabolic disorder;Screen Performed By: #### T SH3 wRFLX, CMP, CBC #### [facility] [address] [place] [id number] [facility] Globulin (S) [Mass/Vol] 2.5 g/dL Normal [facility] Comment on above: Order Comment: Reaso n for Exam Wellness examination;Screening for metabolic disorder;Screen Performed By: #### T SH3 wRFLX, CMP, CBC #### [facility] [address] Glucose [Mass/Vol] 85 mg/dL Normal 70-100 [facility] Comment on above: Order Comment: Reaso n for Exam Wellness examination;Screening for metabolic disorder;Screen Result Comment: [facility] Glucose Reference Range is dependent on time and content of last meal. Glucose of more than 200 mg/dL in a nonstressed, ambulatory subject supports the diagnosis of Diabetes Mellitus. ADA recommended reference range Performed By: #### T SH3 wRFLX, CMP, CBC #### [facility] [address] [place] [id number] [place] Potassium [Moles/Vol] 4.5 mmol/L Normal 3.5-5.1 [facility] Comment on above: Order Comment: Reaso n for Exam Wellness examination;Screening for metabolic disorder;Screen Performed By: #### T SH3 CourtneyFLX CMP, CBC #### [facility] [address] [place] [id number] [place] Protein [Mass/Vol] 7.3 g/dL Normal 6.4-8.9 [facility] Comment on above: Order Comment: Reaso n for Exam Wellness examination;Screening for metabolic disorder;Screen Performed By: #### T SH3 wRFLX, CMP, CBC #### [facility] [address] [place] [id number] [place] Sodium [Moles/Vol] 140 mmol/L Normal 136-145 [facility] Comment on above: Order Comment: Reaso n for Exam Wellness examination;Screening for metabolic disorder;Screen Performed By: #### T SH3 wRFLX, CMP, CBC #### [facility] [address] [place] [id number] [place] Urea nitrogen [Mass/Vol] 13 mg/dL Normal 7-25 [facility] Comment on above: Order Comment: Reaso n for Exam Wellness examination;Screening for metabolic disorder;Screen Performed By: #### T SH3 wRFLX, CMP, CBC #### [facility] [address] [place] [id number] [place] Creatinine [Mass/volume] in Serum or PlasmaOrdered By: Mishel Dimas on 03-26-2023 Creatinine [Mass/Vol] 0.74 mg/dL 0.60-1.20 [facility] Eosinophils Auto (Bld) [#/Vo l]Ordered By: Mishel Dimas on 03-26-2023 Eosinophils (Bld) [#/Vol] 0.1 10*3/uL 0.0-0.45 [facility] Eosinophils/100 WBC Auto (Bl d)Ordered By: Mishel Dimas on 03-26-2023 Eosinophils/100 WBC (Bld) 2.7 % . [facility] Erythrocyte distribution wid th Auto (RBC) [Ratio]Ordered By: Mishel Dimas on 03-26-2023 Erythrocyte distribution width (RBC) [Ratio] 15.2 % 11.9-15.3 [facility] Globulin Calc (S) [Mass/Vol] Ordered By: Mishel Dimas on 03-26-2023 Globulin (S) [Mass/Vol] 2.5 g/dL [facility] Glucose [Mass/volume] in Ser um or PlasmaOrdered By: Mishel Dimas on 03-26-2023 Glucose [Mass/Vol] 85 mg/dL 70-100 [facility] Comment on above: ADA recommended refe rence rangeRandom Glucose Reference Range is dependent on time and content of last meal. Glucose of more than 200 mg/dL in a nonstressed, ambulatory subject supports the diagnosis of Diabetes Mellitus. Hematocrit Auto (Bld) [Volum e fraction]Ordered By: Mishel Dimas on 03-26-2023 Hematocrit (Bld) [Volume fraction] 39.5 % 34.0-46.4 [facility] Hemoglobin [Mass/volume] in BloodOrdered By: Mishel Dimas on 03-26-2023 Hemoglobin (Bld) [Mass/Vol] 13.3 g/dL 11.8-15. 4 [facility] Leukocytes [#/volume] correc rigoberto for nucleated erythrocytes in Blood by Automated counOrdered By: Mishel Dimas on 03-26-2023 WBC corrected for nucl RBC Auto (Bld) [#/Vol] 3.9 10*3/uL 3.8-11.6 [facility] Lymphocytes Auto (Bld) [#/Vo l]Ordered By: Mishel Dimas on 03-26-2023 Lymphocytes (Bld) [#/Vol] 1.4 10*3/uL 1.00-4.8 [facility] Lymphocytes/100 WBC Auto (Bl d)Ordered By: Mishel Dimas on 03-26-2023 Lymphocytes/100 WBC (Bld) 35.6 % . [facility] MCH Auto (RBC) [Entitic mass ]Ordered By: Mishel Dimas on 03-26-2023 MCH (RBC) [Entitic mass] 28.5 pg 24.7-34.3 [facility] MCHC Auto (RBC) [Mass/Vol]Or dered By: Mishel Dimas on 03-26-2023 MCHC (RBC) [Mass/Vol] 33.5 g/dL 32.0-35.0 [facility] MCV Auto (RBC) [Entitic vol] Ordered By: Mishel Dimas on 03-26-2023 MCV (RBC) [Entitic vol] 85.1 fL 80-100 F [facility] Monocytes Auto (Bld) [#/Vol] Ordered By: Mishel Dimas on 03-26-2023 Monocytes (Bld) [#/Vol] 0.2 10*3/uL 0.0-0.8 [facility] Monocytes/100 WBC Auto (Bld) Ordered By: Mishel Dimas on 03-26-2023 Monocytes/100 WBC (Bld) 5.3 % . F [facility] Neutrophils Auto (Bld) [#/Vo l]Ordered By: Mishel Dimas on 03-26-2023 Neutrophils (Bld) [#/Vol] 2.2 10*3/uL 1.8-7.7 [facility] Neutrophils/100 WBC Auto (Bl d)Ordered By: Mishel Dimas on 03-26-2023 Neutrophils/100 WBC (Bld) 56.0 % . [facility] No Panel InformationOrdered By: Mishel Dimas on 03-26-2023 Estimated GFR (CKD-EPI) > 60.0 mL/Min [facility] Creatinine Clearance (Chem N/A [facility] Nucleated erythrocytes [Pres ence] in Blood by Automated countOrdered By: Mishel Dimas on 03-26-2023 Nucleated RBC Auto Ql (Bld) 0.3 /100{WBC} 0-0.5 [facility] Platelet mean volume Auto (B ld) [Entitic vol]Ordered By: Mishel Dimas on 03-26-2023 Platelet mean volume (Bld) [Entitic vol] 9.4 fL 6.3-10.7 [facility] Platelets Auto (Bld) [#/Vol] Ordered By: Mishel Dimas on 03-26-2023 Platelets (Bld) [#/Vol] 185 10*3/uL 150-450 [facility] Potassium [Moles/volume] in Serum or PlasmaOrdered By: Mishel Dimas on 03-26-2023 Potassium [Moles/Vol] 4.5 mmol/L 3.5-5.1 [facility] Protein [Mass/volume] in Ser um or PlasmaOrdered By: Mishel Dimas on 03-26-2023 Protein [Mass/Vol] 7.3 g/dL 6.4-8.9 [facility] RBC Auto (Bld) [#/Vol]Ordere d By: Mishel Dimas on 03-26-2023 RBC (Bld) [#/Vol] 4.65 10*6/uL 3.60-5.00 [facility] Serum or plasma albumin/glob ulin mass ratioOrdered By: Mishel Dimas on 03-26-2023 Albumin/Globulin [Mass ratio] 1.9 {ratio} [facility] Serum or plasma anion gap de terminationOrdered By: Mishel Dimas on 03-26-2023 Anion gap [Moles/Vol] 9.8 mmol/L 6.0-15.0 [facility] Sodium [Moles/volume] in Ser um or PlasmaOrdered By: Mishel Dimas on 03-26-2023 Sodium [Moles/Vol] 140 mmol/L 136-145 [facility] Thyroid Stim Hormone w/Rflxo n 03-26-2023 Thyroid Stim Hormone w/Rflx 1.38 u[iU]/mL Normal 0.45- 5.33 [facility] Comment on above: Order Comment: Reaso n for Exam Wellness examination;Screening for metabolic disorder;Screen Result Comment: PERF ORMED BY: [place] [address] PATHOLOGIST [employer] TECHNICIAN ELYSE WHIPPLE M.D. Performed By: #### T SH3 wRFLX, CMP, CBC #### [facility] [address] Thyrotropin [Units/volume] i n Serum or PlasmaOrdered By: Mishel Dimas on 03-26-2023 TSH Qn 1.38 m[IU]/L 0.45-5.33 [facility] Urea nitrogen [Mass/volume] in Serum or PlasmaOrdered By: Mishel Dimas on 03-26-2023 Urea nitrogen [Mass/Vol] 13 mg/dL 04-22 [facility] WBC Auto (Bld) [#/Vol]Ordere d By: Mishel Dimas on 03-26-2023 WBC (Bld) [#/Vol] 3.9 10*3/uL 3.8-11.6 [facility] Coding Summaryon 07-25-2022 Coding Summary [facility] ZxcstoxtEAe4nCl+PG hlYWQ+AB6ELLIjV31b iGSglE5FD1kKKJ1ZNN GFPYKKPP6ELC6zzNC1 QUkvG4PewlYn MxziqOKqWV83ZJj3DP J4vTzrZPrxzC9qlXRe Q0j4WxRbQT75kU86XQ whGWZtFmI8YaWobntb bWFy W6xlEuPdiNWgIac+PH RhYmxlIHdpZHRoPScx MXKoVsSzbBolZS4vXa 9yZGVyLWNvbGxhcHNl OiBj x2riPPYpLQemWH7pcD ljI8QqpLE5LNKre3t0 Sg90dZQ+QEIyXRW1vF gbCLlsc899IuPpg7zb IDM3 yFRuFBttXBQ4T22qj4 T3NKFnLRMuBRX7sDP3 xP5sgBwavyaeA6TrcQ VzPyQ0BKA3sPBbdK6i bGln umybfS9lLeq+Q09ESU 4JFPVOEJ5SGia0N5Cl PjwvdHI+RG01VQYgNS 16jVBgfCXrk9othFv3 JzEw QFMxAKL0dEvnDMyrw8 CoMPEfJ52coOYxn8H5 IGNvbGxhcHNlOyBlbX D2pY5vQIxlxrtli2pp dzsn Sqbov9qovv39nF74T6 4bOIuaJSFoOGI2SEMg XZHsnSyedy7jtG7zXa 8+YRgde2bvi8xsfIc4 IjIw DFTldvEijKbnVQG5a1 TqDx00O6RuwKcfo4Gw Izf5tw06gAWdx0E5zE L7NSsqLZClcZ1rMIsy ZnQ6 DARcInEpsU28eLMkZR vjHm1euWgkwHbyHU3c MFSvjrihNQGbnM9mJD JxfDBonIaqPZ7rVWQe bjtm c588NbWxBAH7TPUfrY TmQ1AvjX3gNlKzUDJw HWBaM8BbtKJxBHbbX8 68FMxeIbK7FDRrdoNs Y2Fs EGItdGhfPfC9z3C6Sm 1Fl0XanipfWIO0KIvw FOXpVxL7KyLoGuI1J6 ArTts5PXClhEvwLJ6v J3Bh AXRhjugvdjbrgJQ2JG GxFCTqoE36aTBgUQia Gl4av3B9l266VJKcUB XudF96Ct5cxKqfJDWp dCBU eD7teiksg9mibqsaFo RbJFSuOPu5DYj4FBRb kGysOjExPCO3GkU4LV N5mWLpdP2umZghzgbx dG9w Oyc+B14ozD6sNAW9LW X9wqqlNMVsdtLzPM22 EA15B9WcYfobhVPniQ U+UTJcfgRaoEopHO2j YmFj o3xwf5IaMQqvS7WbGL PaJWbhSqd4INEeOFV0 fJF5mH6lJVVmHLgma0 E6mHR0R9IclyMuqp8w b2xs BPQjYRfdM79ykDAhc5 G9HXSxeJZ8YBZnqGlx FnIfkV46Ked+PGNvbG gbc8CnFrgie0lgt7xg dGg9 IjMwJSIgdmFsaWduPS S6e0GjHt92M27tTDil ZHRoPSIxNSUiIHZhbG euwd2ucQ0wFx1+PGNv bCB3 bSJ9eC5mNGOoPmW9MP cmG245DsWnaAZpDbvu j8uff7yvjPm4FnFyYL PjvjQhdVduCSD8w2Tw Lz48 C59uWSyeKFAiFNVpEF PcSIFgqRnurf1ntU6z Ii8+TY2os6ewfu19fM 48dHI+FQFwVLW3uJkd PSdw LWVccL2hMBuaKvZ4LV IfNfGtqG87gKXzSVzv Ua1qfSbzgPtfHR4aTR Owkoqky391ZlPkz0zp IDEw bCRnEFqdSIO5N52zp8 G6WRDkIAEoUJO0aZA1 dF3jaRwhyyvjgQMafA sgdmVydGljYWwtYWxp Z246 IHRvcDsnPlBhdGllbn ByMdNhCGw6C8JpDxe1 FCNgsIkhWA2blFOmKV okMy3ygGewuUtvOC6v NTBp yergz238SaCyx9ueGE HgiKTtVDsbJET4N47z z1X7MMTlWIQoMNR6rF E1aB9ksStsuzqviDBr dDsg dmVydGljYWwtYWxpZ2 46IHRvcDsnPkJpcnRo ZQUqeRT0LT42SZ42dB Ktk3T2eOB4F9QuPXNp bmct iydhwQZ2SIUiRHLtyI 78Yx6vyVvpMf6jSCZg RJT1IFFlnEIwZ3KmyG 2zHnTqRGSnAMOmZ4Jk eHQt INjiQ594LNiuLtR1FW BxjaFpI0WgAXJtlJyr ZfO9b2U4Mm4EM1H5GD 79BZ04dRBsc0D3yGJ3 J3Bh VGAdgqlxxbswiQM9WY AzATJupA05Tm9usBaf If3bQYBhRKS2SGUriX DbE0ZmvR4gFnCqNDPo MDAw I4AwdTUxOFrzQ862OI fgXtX6APEeyiFjC2Jm MEXndMlyNzN4p8T8Pe 5BUUc6ZL69QR99cQLl c3R5 fTZ5Z7VkMEOunhsvcm uxqBK7WLHxMFPktC71 Lt4cjZzfSk5xFRPsCT S6DRFcsMYhE5NksS2x OiAj DXYvBWRgR7HbkCTqSB hwR512OLzeTkI9RLVm fcSgJ9TsCRXktVogFe H5z6E5Uq0CUOUeTE70 IFR5 hMH4UV13AK89S0ElOr wvdGFibGU+PHRhYmxl IHdpZHRoPScxMDAlJy KecQfhMW3sIy8lIYBq LWNv tIbwiNUvQnXwq5psSF GoFHyrSO0mgNymL7Tr xWJ5LXSkq6s8Dk26K6 0gE0HwpUP+PGNvbCB3 aWR0 nQ3jOqNmOrM6HFxeN8 46NzMofINbNnkou7pf n1ydjDq9JvW4BXNqeh NpkCtnMZB5m7RyUe64 Y29s IHdpZHRoPSIxNSUiIH XzgPoksa5ayU0tGx4+ KZPadDF0kHM3jY5gPm TzYeQ3JWpsH314JtWp cCIv Lcqdf5ccg6sxnXd9Fb IwJSIgdmFsaWduPSJ0 g1HlBr59K6NiqLcsi0 ItAei8zz64hOMru6R3 bGU9 Q2SpFVTddamdpYMviQ saEP0lITXhefkiOHUf jN3yXLCmA3h3GiMvFm L1NAxkI9KejlZ6DOBh cHQg OXcbNTA3K18gm0N4JY KoNVPoGIM3eSS9nJ7w bGlnbjogbGVmdDsgdm SjiFweVOqqGEhoJ416 IHRv aDgeXLTlwN5rKQNdjU HxhJoaNN4fGVTksabk MwJBMU0MTusaOJVMNI SUIqFDEF8UUZ96UC19 dGQg r2D6cRA8K7TxOUMmnh yexircoJM7RWFkRQRj uF91uPJbDDxySw8iq2 F5e905FZHdEBDxjO46 Zm9u bFabBFYllLFWpC7hpr dcg3cscouiJcLkQKYn NDr6QKb3XBIhfFcwVh PiWKP1KkR0RTG8tXQq bC1h jLcywbpqoF5oVfv+MT EvMTMvMjAwMzwvdGQ+ ABPkGBG3pMvvMAlgKR YavX1kGQOuN9v2IqPs LjA1 JUgkE8ZcKZKyqbteAv 24rO2dLgLoDrR4RWor T0OqltH7BCEdbBTuAT cbPVD2M37pi7L9CRPg MDAw DFG2gXZ1qD5icKiaus ogbGVmdDsgdmVydGlj DHhhPFyuQ398CQVbuR qaHoU9HWxbWCMvGT91 ZD48 tOJnx3P5jEF2F4ZxAR QvrneaahtrxGF0BYPd QZMtyU57eMRdHAzvLu 5xj0X4w942LXMqEGLb aW47 Zn9uwZklTQCgaMDHkD 5iofbgu2qpwxkiYjNw SAEeODc2BXw8XSYfdM fsYgRnKKH2PqC0CPD0 aWNh sM7azGkvcwvphM4iFe c+PtSONYdFTJ00OI95 uSGaa2Q3hJH2V0WvKW VwrxcojvuruYR0UHAf MDUw qV88sXBkPXxpUv2wi0 A0y309TFIhQPPjbD77 As8lvYwpNVYgqPNJnI 8kbfmwo6najcrqZsRa MDAw TCk0WRw3GTGbzYhpMz AzFUA0NiT3PEG9lFFv kU3wzPqqspyfaQ9ePd c+U5G3K9CiPhvppFE+ PC90 IARwCW62qNXfuRXrq9 dwgAv8VbTqKYZzTAT8 dDfaJHpcg8RcWBVrB2 9cmARbu8Z7ZBZnnEoe cHNl UpQkhBF3yH1lQBjrjy hxr7zupsalVhzgh5wm rp92mB24S38mWFzlAD RoPSIzMCUiIHZhbGln bj0i eC6kZr3+GZZliJR6hQ V3lW0hGzKhLcW3GUcz G843FpGujGHiRwevh6 gde2jrzWx4TbSjUVFs dmFs vCutKGD6c4WyYw89M6 9sIHdpZHRoPSIyMCUi MMFcbBmjpi4xqY8tFl 8+ZM9gh8suko00wK45 dHI+ GGSgPBO4oJamIMvaMI FwuA5gLWnnYlB8BFBn WyKpqB62fXXvJXgqTe 9ryJummDsaIC2xLKEg bjtm n899SoNjk6myILXosR MaUGifGFR0L96xd4E6 VFQtWTTpLXH6tQX5uJ 1hbGlnbjogbGVmdDsg dmVy zUgiMByfKJzdR176ID ZibIlhHdPvtPKnB1na wcBBAD5aKxpegJZ+PH TwYTN6rQicZLwyJBEf aW5n LXCxK0f3NlIjWqE6UL ykS4UgzbH4WGVehOXn LMUieCECcS8acgriw7 xvcjogIzAwMDAwMDt0 ZXh0 LECqgOanKcUkVEV8Iv G3DLJ6fIVphK1vlTji lcyhkS5uPss+RklOOj wvdGQ+NMBoSHD6oWbw PSdw ILHpcS2oQYPfS5i2Wr EnLzF2VZaiA9TrbxR3 IGJvbGQgMTBwdCBUaW 8koqjph7ggmpqxZkCo MDAw AAa9WPs9LLYilAuyVx CkAEI4SmI8YTE6wZLg fK0dsPkuaeujyT7rQu c+TVJOOjwvdGQ+PHRk IHN0 dKprOYqkBNSuyN9sDW XrE3x8MmWvZrI8ZDxw O3OvpqL2YLEzqWDeZK MxfWEDpW6pmjusn8lt cjog GbEsHZPwSNz7CKy9BA TqrXfyWmAxNXX2ZbR4 ZKZ2lADajK3twTcavb dduP1uYqn+WMI3UDW9 PC90 NW11V4YkTrekbSKovX U+PHRhYmxlIHdpZHRo PScxMDAlJyBzdHlsZT 0kRf4vSOUcRMLkuHuj cHNl OiB (more content not included)... [facility] Coding Summary HTMLBase 64 MsnenblkGGw1mWu+PG hlYWQ+GJ3DRUBtN48i rYVgfX3NA1aQMI1MLD ECLYYVDH5TRM1fmZU4 UJqtR4SthyHt MtrkbGUtAB61PVa3JQ V7aNgbTZivfC2msYDq A2e4WnTkVL09sE51UB zyWCBhCjL4YxTopfvn bWFy H3keEyRqzVWyHus+PH RhYmxlIHdpZHRoPScx QGSqZlDdyQutBY6qPh 9yZGVyLWNvbGxhcHNl OiBj r6rjJDVaNFseIB8qgT tdS5FznRN9WVHpo8c1 Me68qOX+EDRsTWG9fA paBMvpm972DtWfi6tw IDM3 dMDtWRpgVDB3X79im1 R1XZCgOUFoDIP8oPH5 lN6riJyqdqfpM1QxlM CuBsS4ELE9jLIuxU1h bGln axuekJ9dGar+Q09ESU 2EQGGFQS4BTkx8D5Wt PjwvdHI+JE98UEVmGT 04fBPtaQMbl6mumTd1 JzEw FHYuFMA8nZivZWyrw2 GmIJCbR18epIHdg0Q7 IGNvbGxhcHNlOyBlbX H3tD9gBOdptqdnq3rf dzsn Rubur5bsjo99tZ96V2 2aOTgqKSWiAWK8PJTw CXMhfIncfo1ycD0bMl 8+GZktf0sca1mmhVf2 IjIw LFPoiuEsaQlaALR4a4 EmUv36P6SidJgfc5Ng Zjx6wg90nTWig2P0oF M3LOwsBREpoL7rEEph ZnQ6 YPElWzHafW87lFFbZN heGv6jqQihpMnpOS8k NGBioolvXDGthU4jWL LrtJDmoDbxFB1nNMCm bjtm g301HyXmKJI6POFylE VqF6VzhM8pHdBlPJLm JJJgP9QtaYKlRXhtC9 84OKifXwA6PTBbgsOr Y2Fs WOVkhCuvRtY5u5U5Qz 6Bl6AvppjbSTK8AOhw SCLmZsI6LyYcQxA9W5 NpJcq4XNWvuZioOC0i J3Bh DYZzcoqraiolrDH9DE RiXBPjvI64lXYdGIul Nl1wh5Y2d880UILbTT VhsR45To2ztAooIJXs dCBU iG5yvyjth3iekfpvYs NgXIYzOSc3KOx0AHTl sVjsOoSzNTF2MiB2BQ S2uHPuvL4mlZhabrmf dG9w Oyc+W01jkM8iZDA8UN H2lcxoWATrczPyUH76 JD15U6RxHurleEShiG U+UDIlrePgzCiyMI1s YmFj p7tfr1QjIPesJ5LiFF ZfFCvqSqa6BSFsAVX8 dST3aX9rWHPePEvvd9 R3oEN5R9RvtfXgyl3r b2xs HOOsZTsrF63eoLJuw9 Y1RUPjvXN1VHJmaFbt MlQamK24Yev+PGNvbG brw9LkPyypi2keh9gu dGg9 IjMwJSIgdmFsaWduPS J5c0AxVf59T64uKWop ZHRoPSIxNSUiIHZhbG polj4bdD7dJg6+PGNv bCB3 nPF1nB0bEKKtMhG0IN luE137FcCquYKhExgp l2jzs4xgkUo1StKbJB QqihJrqHadRWR9i8Vy Lz48 D10jNIevWRCyXDMwPM FpKOWlrXyvjx5gdP7e Ii8+MQ4hg1qawz47vW 48dHI+RSSsTXN1kVeh PSdw IVEpeH1dNXncWcC2ZS YkObTlrV85iNUmXUas Js1eeDzbnDwfFB2xDJ Chsuowp781QmRqg7bd IDEw sTRuYNblHWE7U72gn0 I5FQHwXBVsNOP8fTT3 wO6ytXllalpghQTtpO sgdmVydGljYWwtYWxp Z246 IHRvcDsnPlBhdGllbn NqMnZfYVa9A8PfIak1 LZWloBrwPC9qyRRfKV hdGi3ezUhwlVegZK7p NTBp linrw335AzCka0kiQL NklWCgMBxqYFC0J69y d5R3NDGwYWPqUHN6pM K5kP4suGdyjjluuXTp dDsg dmVydGljYWwtYWxpZ2 46IHRvcDsnPkJpcnRo DGJyqYT8HH20ZQ40zJ Xvo4L6oRU7F4WlDRUe bmct geetsCO0EAPfYBMxnR 24Ub9zzPgjKy4iBQFt HEC2KHYxbTUlP8AgxY 8aJqJyATTnZSRyY7Lp eHQt GHwaD228MWlxHdT2WI KaybEwO8XtKYNuzHii SxO9q8A1Lw8HH3F6XU 09QE69xKXdr7U3wQI9 J3Bh SVVummuxdksgiDF8RC IcYHNvuR57Nj5mhHzo Mo7rPPFnCZT0DLRijM JaO7JlzL6hKsMaXHKx MDAw N5UseWKnWLqyC326NI nvPwM2VHSmfaMfJ5Re DFLoiKneJiZ6s2T1Jp 0LAQy6CN68DL89rYIc c3R5 zJZ3U0PvRFNjmnvmdp ajjNC0WXSoPCHrtD60 Cz0mxMvsSd1kJUVpUV J5JWIfxYFcH1NzuG4x OiAj ORZvMQYxR7DdxYBvNW oyK638UBnrYjG1ZMYy abFyE8OhVTLjhGdeLk Z4k9X1No3NZKNuWV19 IFR5 sKD2TG14PT85Y5OwIb wvdGFibGU+PHRhYmxl IHdpZHRoPScxMDAlJy KjlKjcIC9oHk2oNDSm LWNv sOxtaTJtOiGha1igZA QjWEvnGD0gpBdwY9Zx pDU2BIBbn5x3Wp18J8 7vQ2QpwRE+PGNvbCB3 aWR0 yG9qAvQvZkZ7RHerH4 68VnAbnHGyFuqub6wj w3rtpEi5MyI5ITOuig EzhYjpUPO8h3MoZb99 Y29s IHdpZHRoPSIxNSUiIH TelQrzfn9thF3lWv4+ BYWrsLY9uUQ6sH9uCf BiIaX4OPhzW414DzAd cCIv Gfswx3lku4usyBl6Ga IwJSIgdmFsaWduPSJ0 p5WeFe58J6GaxHfrj3 EpVug7uj92wETkj0Y3 bGU9 F5WgMAMpazmzrYLojU eqBW5wJSSbhmxaQDCc uB4jCRAhF5z2ClOpBh F6CJddF2HcliX8NCUx cHQg FLowVLV6U48ly5E5WB UgAABhUPU0vXU4yS6o bGlnbjogbGVmdDsgdm AeyQisWIbnPMtgR400 IHRv uCitSWLkdZ4mMMHctS UgbQpiNK6kEJZibbkf AlOTPG0AUegiOVYLAY PZJrHXAG7VWD58CT96 dGQg n1Z5eTA5G3BbGOWiqe bzskpkaKC8GCVtIRMf hI87zDZhLOtrQi0mu3 S0r797JEYxCZAdyF15 Zm9u aHcyRQMsdACMqJ4ylb che9raciubNzNeKWJl UCg5WUf3YXYbuSobEw IdRHR9BbN5RYR4lUGd bC1h cYiaqgrklG0eNxs+MT EvMTMvMjAwMzwvdGQ+ OPOsYPB6mEjnFFvdMX SgsB8eSPJpE9c6XbTx LjA1 QGimY0LtNAHazblbLc 83gQ0jZxTcBcA7OObd S6SsikN8XXFcaXPwET ipLBX4G62dd0D2NUZw MDAw WVK9pCA6sR5kiAbbwj ogbGVmdDsgdmVydGlj PUugUItpO289TBGvsN wxXnH8AFbwYLFhMI24 ZD48 uRCst2T1nOD1G3YgET ShkncwgjmsqZX6MLTn EBNgyK39pTVjROorTy 6ym6N0q809EYHuDGAe aW47 Df2acNkvBMHkeLDPgL 3vjwonk6mmarcuOiOk FAIhSDi0POm1PRJwzQ btWnFkNTK0IeR4XDG3 aWNh nH8lhIthbmuzbA0xKw c+RdADNTsTIO44OR16 cJThl4F4pGG2M9StSN MtplwvvvchfNZ1QCWy MDUw sB51hHWuFGnqAk2mz0 H1f015MJMxLMTjbT46 Xw3abOlhCOUyqVEOuL 2jahohq6yjdmpiRcBm MDAw PFj9WEl0GJOlyOsrAd KyMDN5NiE2GPG2kVWg qR2reZxfsdvqaL7bWh c+JB6slvrytkG7FE07 ZD48 E6DyKjxguIFklVR+PH RhYmxlIHdpZHRoPScx WIKbCjNyhNrrCL5kLh 9yZGVyLWNvbGxhcHNl OiBj m8bkORHrXTroXK9hbL xqR5NloDY3UDClu2d1 Ul43X14qF4YxxHQ+PG MzaBM5oCI2jC2yWtWo IiB2 GXhfO511RsOzxOXhJr zjm9izn3jciHy6PuFh QJEbdyFnjGuhKNV7b1 TnRx09R55cOZgfZWOc PSIy UCWjBQFbuSvqly2xsO 9wIi8+NUGujOK0nPU6 xY7nOwHfNpI0USsxN3 94PqBzbIYyBcfaS22y Z3Jv dXA+SNPnYtc6WJUyeX evEI3saRFnPYywDo4k KZO9OhElPiPcQOfrH8 BhZGRpbmctcmlnaHQ6 IDAu GHOewV90Ww4meGtvFt 3fYCOmODK8RAUuaQGy T4JkzC7oCmLgGVXlWZ LsG4WnmUErOLviB885 IGxl FlR3QRIdvqOpN3IiKQ NtpDciKmS9r3F3Tw9Z jNzrpCLfPK1eXoRrYI x7J7TtJww5RNPmwZyy ZT0n lEGiVQokRo7reWxkkN zpMH7wFKPoebeis252 ZeXpk2pyCHBryKWmUX cdHGZ6Q91vm8X4UUJb MDAw QCQ2uXQ0oC7fmNpsiv ogbGVmdDsgdmVydGlj KVnxUZfhS652AWHowP pnReBCMmh0G2UuAiz2 ZCBz kQrdRG0ieGKwOWmoHq 0ntCdrhHxsKM4dSFVd iwuff567TgDvv1ctDB UqnKPtOVlkVJN7N01m b3I6 KORqXLZhKPO7vBK4dK 1hbGlnbjogbGVmdDsg dmVydGljYWwtYWxpZ2 05QZHruFxgFw1ZJta5 L3Rk Oer1PGUmcAkbDR6juM FkAIsuSn1cuZiqjYnx KY5kAUWbbngdq427Iv Llr9ubUWWkuKOdCGqt ZXM7 L05wh5N0TPSlXOEvBA Z0oMP8gX5qtLxhbdxq bGVmdDsgdmVydGljYW mgXPwiZ799KXZmnSoj PlBh eWVyOjwvdGQ+PC90cj 51I3DnZfoyYdw5HFNo RSV5sUV3bM3oWRPcYQ ypj7M5wMH7H4RkolDw ci1j b2x (more content not included)... Normal [facility] ED Clinical Summaryon 2021 ED Clinical Summary [facility] - Emergency Department [address] [place] [address] ED Clinical Summary PERSON INFORMATION Name: JOSELIN VALENZUELA Age: 16 Years Sex: FEMALE : 2005 MRN: Acct#: Visit Reason: Chest pain; CHEST PAIN, HEADACHE Arrival: 07/19/2022 20:06:01 Discharge: 07/19/2022 22:07:00 LOS: 000 02:01 Check In: 07/19/2022 20:06:01 Checkout: 22:07:00 Address: [address] [place] [address] PCP: MISHEL DIMAS PROVIDER INFORMATION Provider Role Assigned Unassigned Talat Hardy MD ED Provider 07/19/2022 20:07:54 Tripp RNMartha ED Nurse 07/19/2022 20:21:39 VITALS INFORMATION Vital [...] stated that she did had gone to [place] today, and noted throughout the day, intermittently. [...] Medication Allergies. Medications: (Selected) Documented Medications Documented [facility] Prescription: 0 Refill(s) ibuprofen: [...] Problem lis (more content not included)... Normal [facility] ED Patient Summaryon 022 ED Patient Summary [facility] - Emergency Department [address] [place] [address] PATIENT DISCHARGE INSTRUCTIONS Patient Information Name: JOSELIN VALENZUELA Age: 16 Years Date of : 2005 Reason For Visit: Chest pain; CHEST PAIN, HEADACHE Arrival Time: 07/19/2022 20:06:01 Primary Care Physician: MISHEL DIMAS Attending Physician: Ahmet Moreno DO Comment: Visit Diagnosis: Diagnoses This Visit Abdominal pain, epigastric (R10.13) Acute chest pain (R07.9) Chest pain (71244721) Elevated blood pressure reading (R03.0) The Pharmacy at [facility] is open Friday through Friday from [...] alcohol and/or drug addiction problems; contact the [facility] 21/04 Crisis Hotline -Text 2MIOC gh [id number]. If you received any narcotics, sedation, or [...] legal documents With: Address: When: MISHEL DIMAS [address] [place], [place] [address] Business (1) Within 3 to 5 days [...] and treatment you received today in the [facility] Emergency Department were for an urgent problem and are not intended as complete care. It is important for you to follow up with a doctor, nurse practitioner, or physician?s ophthalmic assistant for ongoing care. If your symptoms [...] so we can reach you if necessary. [facility] Emergency Department has provided you with a complete list of medications post discharge. Please inform your fryer line helper/provider of your visit and for further instruction on these medications. Any specific questions regarding your chronic medications and dosages should be discussed with your primary care physician(s) and/or pharmacist. New Medications [id number], [address], [place] [id number], [phone] famotidine (famotidine 20 mg oral tablet) 1 [...] 70 bpm Per (more content not included)... [facility] Progress Note - Nurseon 06-30 Progress [...] 07/19/2022 22:06 EDT] ____ Martha Almaguer RN [facility] .Auto Diff 1on 07-19-2022 Auto [place] % 8 % Normal 10-10 [facility] Comment on above: Performed By: #### 1 [id number], 5631327809, 95878667, 0913029021, 4269712, 1879689, 3189300738, 8992315940 #### [facility] (DEFAULT) [address] [place] [address] 33777 Baso Abs# 0.0 x10 Normal 0.0-0.2 [facility] Comment on above: Performed By: #### 1 [id number], 1481388636, 14756677, 4580997845, 6088812, 8939363, 2723870472, 9829435186 #### [facility] (DEFAULT) [address] [place] [address] 42281 Basophils/100 WBC (Bld) 0.2 % Normal 0.2-2.0 [facility] Comment on above: Performed By: #### 1 [id number], 0983188215, 79658136, 7980215687, 2696834, 3968215, 2023129911, 6783591378 #### [facility] (DEFAULT) [address] [place] [address] 19113 Eos Abs# 0.1 x10 Normal 0.0-0.4 [facility] Comment on above: Performed By: #### 1 412060500, 2465833946, 38023778, 3449979990, 8698640, 8274969, 5534117283, 0811375868 #### [facility] (DEFAULT) [address] [place] [address] 84862 Eosinophils/100 WBC (Bld) 1.8 % Normal 0.9-4.0 [facility] Comment on above: Performed By: #### 1 252091294, 7318410414, 89160429, 1363699768, 3179279, 1043484, 1489489280, 6727125737 #### [facility] (DEFAULT) [address] [place] [address] 96484 Lymph Abs# 2.5 x10 Normal 1.3-2.9 [facility] Comment on above: Performed By: #### 1 262867349, 5256776612, 18462265, 9330299132, 1398627, 5247943, 2344542502, 5188069328 #### [facility] (DEFAULT) [address] [place] [address] Lymphocytes/100 WBC (Bld) 44 % Normal 14-48 [facility] Comment on above: Performed By: #### 1 745278023, 4601020768, 78220545, 6485803143, 4790003, 5448255, 0032983093, 4475452439 #### [facility] (DEFAULT) [address] [place] [address] [place] Abs# 0.4 x10 Normal 0.0-0.8 [facility] Comment on above: Performed By: #### 1 438366083, 9255696581, 88741542, 7726885966, 5206748, 6234388, 8021909516, 8161398250 #### [facility] (DEFAULT) [address] [place] [address] Neut Abs# 2.6 x10 Normal 1.5-9.2 [facility] Comment on above: Performed By: #### 1 070171666, 9054772014, 74272899, 6009373291, 6920405, 3232118, 7816757820, 5100482357 #### [facility] (DEFAULT) [address] [place] [address] Neutrophils/100 WBC (Bld) 47 % Normal 44-88 [facility] Comment on above: Performed By: #### 1 074802064, 0855732895, 21689315, 5979343311, 0468622, 3647818, 4251659967, 2147474646 #### [facility] (DEFAULT) [address] [place] [address] CBC w/ Auto Diffon 2 Erythrocyte distribution width (RBC) [Ratio] 14.6 % Normal 11.5-15.0 [facility] Comment on above: Performed By: #### 1 132272549, 6397551852, 80412985, 5919751168, 1890871, 7191169, 6941917029, 2864646869 #### [facility] (DEFAULT) [address] [place] [address] Hematocrit (Bld) [Volume fraction] 40.2 % Normal 33.7-40.4 [facility] Comment on above: Performed By: #### 1 606238056, 1164909347, 35894581, 8404722203, 5889228, 6742614, 0343210782, 6673663118 #### [facility] (DEFAULT) [address] [place] [address] Hemoglobin (Bld) [Mass/Vol] 13.0 g/dL Normal 11.3-15. 9 [facility] Comment on above: Performed By: #### 1 798024145, 6166402462, 06284476, 1182054691, 1105181, 3636466, 1510962336, 6308523086 #### [facility] (DEFAULT) [address] [place] [address] Instr WBC 5.7 x10 Invalid Interpretation Code [facility] Comment on above: Performed By: #### 1 299469922, 1128841277, 18259683, 2315627010, 9618897, 2837409, 8275351261, 3228142042 #### [facility] (DEFAULT) [address] [place] [address] Man Diff? Auto Normal [facility] Comment on above: Performed By: #### 1 791126566, 0120211520, 49592235, 9867940562, 8427772, 2295090, 2636952733, 1259303770 #### [facility] (DEFAULT) [address] [place] [address] MCH (RBC) [Entitic mass] 27 pg Normal 24-34 [facility] Comment on above: Performed By: #### 1 372177825, 7741492144, 26473046, 9737242059, 3412280, 1506939, 9574039168, 5854048833 #### [facility] (DEFAULT) [address] [place] [address] 59721 MCHC (RBC) [Mass/Vol] 32 g/dL Normal 26-37 [facility] Comment on above: Performed By: #### 1 422691484, 8793681435, 76280788, 0089667479, 7402793, 2362049, 9088813610, 5400075284 #### [facility] (DEFAULT) [address] [place] [address] MCV (RBC) [Entitic vol] 84 fL Normal 81-100 [facility] Comment on above: Performed By: #### 1 098079382, 1768794531, 87205843, 6182124119, 7970779, 2578313, 5048837157, 8310871520 #### [facility] (DEFAULT) [address] [place] [address] Platelet 282 x10 Normal 138-427 [facility] Comment on above: Performed By: #### 1 322347050, 8330505772, 68982616, 7867470686, 0592467, 2530879, 5464840921, 5395568160 #### [facility] (DEFAULT) [address] [place] [address] Platelet mean volume (Bld) [Entitic vol] 10.7 fL High 6.3-10.2 [facility] Comment on above: Performed By: #### 1 098909502, 9549695505, 12503332, 5688070980, 7765938, 3040524, 0948990301, 8129342809 #### [facility] (DEFAULT) [address] [place] [address] RBC 4.78 x10 Normal 3.70-5.30 [facility] Comment on above: Performed By: #### 1 995544818, 7460334746, 42022517, 4007332769, 4213025, 0791224, 8189791531, 9471779024 #### [facility] (DEFAULT) [address] [place] [address] WBC 5.7 x10 Normal 3.5-10.5 [facility] Comment on above: Performed By: #### 1 120779563, 8273350215, 68680585, 2819530687, 8032109, 1864168, 7013242902, 5971966510 #### [facility] (DEFAULT) [address] [place] [address] Standardon 07-19-2022 eGFR Non AA >60 Invalid Interpretation Code [facility] Comment on above: Performed By: #### 1 708383422, 2697219508, 73722279, 6623320044, 6410881, 0992623, 8044654135, 7377055471 #### [facility] (DEFAULT) [address] [place] [address] eGFR AA >60 Invalid Interpretation Code [facility] Comment on above: Result Comment: Search Engine Optimizer nicki Kidney disease could be indicated at eGFRs of less than 60 ml/min/1.73m2. Kidney Failure is indicated at less than 15 ml/min/1.73m2 Performed By: #### 1 778894749, 8299272887, 88887584, 3384164431, 5905959, 1627906, 0187298556, 0173934540 #### [facility] (DEFAULT) [address] [place] [address] Albumin [Mass/Vol] 4.5 g/dL Normal 3.5-5.0 [facility] Comment on above: Performed By: #### 1 022519665, 9207334096, 38276055, 0952899897, 1623223, 1791562, 0403690689, 4177320845 #### [facility] (DEFAULT) [address] [place] [address] Albumin/Globulin [Mass ratio] 1.3 {ratio} Low 1.4-2.6 [facility] Comment on above: Performed By: #### 1 901636299, 4216137041, 56860471, 4574561068, 8913432, 0761102, 8564602768, 0045362720 #### [facility] (DEFAULT) [address] [place] [address] Alk Phos 63 IU/L Normal 32-91 [facility] Comment on above: Performed By: #### 1 926090200, 8954067183, 40511409, 5702009087, 3795844, 0151259, 8694482211, 1990521594 #### [facility] (DEFAULT) [address] [place] [address] 91582 ALT [Catalytic activity/Vol] 15.0 U/L Normal 8.0-29.0 [facility] Comment on above: Performed By: #### 1 977529451, 4427243939, 72607270, 2877922079, 1801657, 4021958, 9015546071, 6757965181 #### [facility] (DEFAULT) [address] [place] [address] Anion gap [Moles/Vol] 12.0 mmol/L Normal 5.0-19.0 [facility] Comment on above: Performed By: #### 1 125311035, 9785740363, 86249205, 0804624190, 0631322, 3811879, 8010793213, 9928488363 #### [facility] (DEFAULT) [address] [place] [address] 97885 AST [Catalytic activity/Vol] 23 U/L Normal 14-37 [facility] Comment on above: Performed By: #### 1 032907092, 9800709999, 47184596, 0490889879, 3230215, 9688520, 7194226365, 7610002519 #### [facility] (DEFAULT) [address] [place] [address] 83709 Bili Total 0.7 mg/dL Normal 0.0-2.0 [facility] Comment on above: Performed By: #### 1 453428407, 2203424378, 46104496, 9641033983, 2807537, 8199164, 3687616493, 2728749195 #### [facility] (DEFAULT) [address] [place] [address] 40863 Calcium [Mass/Vol] 9.2 mg/dL Normal 8.9-10.3 [facility] Comment on above: Performed By: #### 1 880905362, 3968630652, 73439828, 1285594967, 2556242, 0540869, 2605645790, 4671402640 #### [facility] (DEFAULT) [address] [place] [address] 11162 Chloride [Moles/Vol] 106 mmol/L Normal 101-111 [facility] Comment on above: Performed By: #### 1 037343575, 1068576390, 73831035, 4260469307, 8787981, 7971447, 1300308821, 6445981844 #### [facility] (DEFAULT) [address] [place] [address] 49363 CO2 [Moles/Vol] 27 mmol/L Normal 21-32 [facility] Comment on above: Performed By: #### 1 858602749, 8266773064, 47716216, 6981529985, 5440839, 6940704, 0584349802, 2118632207 #### [facility] (DEFAULT) [address] [place] [address] 94676 Creatinine [Mass/Vol] 0.72 mg/dL Normal 0.30-1.00 [facility] Comment on above: Performed By: #### 1 957946935, 6600281004, 90568105, 4537148555, 5106882, 4661570, 9782865335, 6499169694 #### [facility] (DEFAULT) [address] [place] [address] 11937 Globulin (S) [Mass/Vol] 3.5 g/dL Normal 1.5-4.3 [facility] Comment on above: Performed By: #### 1 463184527, 3017325402, 69186699, 7978026178, 0708089, 1254635, 6487597809, 9600694735 #### [facility] (DEFAULT) [address] [place] [address] 40326 Glucose [Mass/Vol] 101.0 mg/dL Normal 56.0-144.0 [facility] Comment on above: Performed By: #### 1 332929094, 8556840675, 20481685, 7358664396, 9347942, 6304524, 4168217558, 2860137693 #### [facility] (DEFAULT) [address] [place] [address] 91613 Osmolality 281 mOsm/L Invalid Interpretation Code [facility] Comment on above: Performed By: #### 1 886574410, 2641333380, 96493100, 8149731844, 2336566, 9529507, 9885167684, 3997127158 #### [facility] (DEFAULT) [address] [place] [address] 02587 Potassium [Moles/Vol] 3.8 mmol/L Normal 3.6-5.1 [facility] Comment on above: Performed By: #### 1 150514803, 0070778503, 58896151, 6831542487, 2441492, 1912094, 5587654066, 0611760048 #### [facility] (DEFAULT) [address] [place] [address] 59687 Protein [Mass/Vol] 8.0 g/dL Normal 6.1-8.0 [facility] Comment on above: Performed By: #### 1 215073772, 9486354370, 84525333, 3114771514, 0337070, 5825423, 9928195553, 4663854123 #### [facility] (DEFAULT) [address] [place] [address] 98486 Sodium [Moles/Vol] 141.0 mmol/L Normal 136.0-144.0 [facility] Comment on above: Performed By: #### 1 136937781, 5654192866, 24435121, 2578955807, 7939079, 5703198, 7947643930, 3603220851 #### [facility] (DEFAULT) [address] [place] [address] 22033 Urea nitrogen [Mass/Vol] 11 mg/dL Normal 8-26 [facility] Comment on above: Performed By: #### 1 175129798, 4584682680, 35105934, 1222059517, 7358479, 9451465, 5922707987, 3711283996 #### [facility] (DEFAULT) [address] [place] [address] Urea nitrogen/Creatinine [Mass ratio] 15.0 mg/mg Normal 4.6-16.2 [facility] Comment on above: Performed By: #### 1 519241261, 8002274755, 55768276, 8348843835, 8741562, 1652535, 5543397185, 6195144392 #### [facility] (DEFAULT) [address] [place] [address] ED Note - Physicianon 2021 ED Note [...] stated that she did had gone to [place] today, and noted throughout the day, intermittently. [...] Medication Allergies. Medications: (Selected) Documented Medications Documented [facility] Prescription: 0 Refill(s) ibuprofen: [...] normal conjunctiv (more content not included)... Normal [facility] Extra Redon 07-19-2022 Tube Collected Yes Invalid Interpretation Code [facility] Comment on above: Performed By: #### 1 621007400, 2402528144, 22260656, 6543164028, 3460684, 5951785, 8764749432, 3823005833 #### [facility] (DEFAULT) [address] [place] [address] 85866 Lipaseon 07-19-2022 Lipase Level 35.0 IU/L Normal 22.0-51.0 [facility] Comment on above: Performed By: #### 1 483221975, 5896671660, 46556224, 7616235895, 6314870, 7267040, 7071569299, 2484173495 #### [facility] (DEFAULT) [address] [place] [address] 66284 Test Urine 1on U Preg Negative Normal [facility] Comment on above: Performed By: #### 2 545992711, 346605899 #### [facility] (DEFAULT) [address] [place] [address] 80803 U Preg Internal Control Pass Normal [facility] Comment on above: Performed By: #### 2 464929581, 267770348 #### [facility] (DEFAULT) [address] [place] [address] 29871 TnI HSon 07-19-2022 Troponin I High Sensitivity 3 pg/mL Normal <=15 [facility] Comment on above: Result Comment: Male Baseline Delta 1Hr (Note pg/mL=ng/L) <20pg/mL 50-60% >20pg/mL 20% Female Baseline Delta 1Hr <15pg/mL 50-60% >15pg/mL 20% Other Baseline Delta 1Hr <18ng/mL 50-60% >18ng/mL 20% ([employer] Guidelines April 2018) Performed By: #### 1 794873519, 8365521602, 48482037, 5234118438, 3529518, 9707215, 7094445996, 1764697332 #### [facility] (DEFAULT) [address] [place] [address] 29277 UA w Micro, if Ind Standardo n 07-19-2022 Breakpoint UA Normal [facility] Comment on above: Performed By: #### 1 078914644, 5168704795, 06890494, 7296059506, 0791542, 3544935, 3842606592, 9909595718 #### [facility] (DEFAULT) [address] [place] [address] 95388 Color (U) Yellow Normal [facility] Comment on above: Performed By: #### 1 126286911, 1205099467, 84563391, 4819236464, 0845859, 1435444, 9773077694, 5701805157 #### [facility] (DEFAULT) [address] [place] [address] 51974 Glucose (U) [Mass/Vol] Negative Normal [facility] Comment on above: Performed By: #### 1 104136403, 3048985281, 84952409, 7600286105, 6080591, 4562884, 2528556785, 0139175460 #### [facility] (DEFAULT) [address] [place] [address] 64400 Ketones Ql (U) Negative Normal [facility] Comment on above: Performed By: #### 1 361518650, 2218157412, 77223975, 9014929586, 1186666, 5089553, 2339063798, 4810637378 #### [facility] (DEFAULT) [address] [place] [address] Micro? Not Indicated Invalid Interpretation Code [facility] Comment on above: Result Comment: Resu lt created by rule GL_MAGR_ADD_UA_MICRO Result created by rule GL_MAGR_ADD_UA_MICRO Performed By: #### 1 434704636, 5337148131, 41573539, 5299746918, 7369780, 7058945, 6376704802, 7282497515 #### [facility] (DEFAULT) [address] [place] [address] 34439 UA Bilirubin Negative Normal [facility] Comment on above: Performed By: #### 1 507310214, 4427242334, 14144440, 3056761059, 4988309, 7385816, 2367339977, 7363674712 #### [facility] (DEFAULT) [address] [place] [address] 46560 UA Blood Negative Normal NEGATIVE [facility] Comment on above: Performed By: #### 1 348288059, 2176793657, 71651157, 9661277988, 4207466, 6421157, 0925891205, 7711415313 #### [facility] (DEFAULT) [address] [place] [address] 42514 UA Clarity CLEAR Normal CLEAR [facility] Comment on above: Performed By: #### 1 936604447, 6357715420, 59883045, 7897517619, 2836371, 0279948, 6759908183, 3258084042 #### [facility] (DEFAULT) [address] [place] [address] 87214 UA Leuk Est Negative Normal NEGATIVE [facility] Comment on above: Performed By: #### 1 980563083, 0416013855, 46320126, 7916921118, 9150224, 7923327, 5430491596, 0750028818 #### [facility] (DEFAULT) [address] [place] [address] UA Nitrite Negative Normal NEGATIVE [facility] Comment on above: Performed By: #### 1 930298348, 7256667509, 58390758, 9811621939, 6164724, 8912860, 1694689359, 6126624593 #### [facility] (DEFAULT) [address] [place] [address] UA pH 7.0 Normal 5-8 [facility] Comment on above: Performed By: #### 1 121311830, 2042240221, 89606227, 0374489476, 1110459, 6432525, 0927709017, 5124357292 #### [facility] (DEFAULT) [address] [place] [address] UA Protein Negative Normal NEGATIVE [facility] Comment on above: Performed By: #### 1 778351715, 4130410770, 05383387, 3552831015, 3306797, 1943844, 4733581785, 1834495826 #### [facility] (DEFAULT) [address] [place] [address] UA Spec Grav 1.020 Normal 1.001-1.035 [facility] Comment on above: Performed By: #### 1 163109679, 8448556200, 11428753, 2148840871, 1856967, 4984903, 9334119736, 4383503781 #### [facility] (DEFAULT) [address] [place] [address] UA Urobilinogen 1.0 mg/dL Normal 0.2-1.0 [facility] Comment on above: Performed By: #### 1 333326002, 3507178921, 70381525, 0490399248, 2238307, 5607528, 9987951819, 1828558687 #### [facility] (DEFAULT) [address] [place] [address] 68110 Urine Source Clean Catch Normal [facility] Comment on above: Performed By: #### 1 [id number], [id number] #### [facility] (DEFAULT) [address] [place] [id number] Vital Signs Date Time Vital Sign Value Performing Clinician Facility 05-02-2025 14:21-0400 Body mass index (BMI) [Ratio] 32.7 kg/m2 Luba [place] Park PA Work Phone: [facility] 05-02-2025 14:21-0400 Body weight 81.1 kg Luba [place] PA Work Phone: [facility] 05-02-2025 14:21-0400 Diastolic blood pressure 84 mm[Hg] Luba [place] PA Work Phone: [facility] 05-02-2025 14:21-0400 Systolic blood pressure 120 mm[Hg] Luba Ellis PA Work Phone: [facility] 03-29-2025 13:13-0400 Body mass index (BMI) [Ratio] 31.64 kg/m2 Luba Ellis PA Work Phone: [facility] 03-29-2025 13:13-0400 Body weight 78.47 kg Luba [place] PA Work Phone: [facility] 03-29-2025 13:13-0400 Diastolic blood pressure 70 mm[Hg] Luba Ellis PA Work Phone: [facility] 03-29-2025 13:13-0400 Systolic blood pressure 120 mm[Hg] Luba Ellis PA Work Phone: [facility] 01-18-2025 16:27-0400 Body height 157.5 cm Jennifer Herrera PA Work Phone: [facility] 01-18-2025 16:27-0400 Body mass index (BMI) [Ratio] 31.53 kg/m2 Jennifer Herrera PA Work Phone: [facility] 01-18-2025 16:27-0400 Body weight 78.2 kg Jennifer Hemmer PA Work Phone: [facility] 01-18-2025 16:27-0400 Diastolic blood pressure 82 mm[Hg] Jennifer Hemmer PA Work Phone: [facility] 01-18-2025 16:27-0400 Heart rate 79 /min Jennifer Hemmer PA Work Phone: [facility] 01-18-2025 16:27-0400 Respiratory rate 16 /min Jennifer Hemmer PA Work Phone: [facility] 01-18-2025 16:27-0400 SaO2% (BldA) [Mass fraction] 99 % Jennifer Hemmer PA Work Phone: [facility] 01-18-2025 16:27-0400 Systolic blood pressure 124 mm[Hg] Jennifer Hemmer PA Work Phone: [facility] 07-08-2024 13:37-0400 Body mass index (BMI) [Ratio] 29.96 kg/m2 Luba Ellis [facility] [facility] 07-08-2024 13:37-0400 Body weight 74.3 kg Luba Ellis PA Work Phone: [facility] 07-08-2024 13:37-0400 Diastolic blood pressure 74 mm[Hg] Luba Ellis PA Work Phone: [facility] 07-08-2024 13:37-0400 Systolic blood pressure 110 mm[Hg] Luba [place] PA Work Phone: [facility] 06-24-2024 10:06-0400 Body height 157.5 cm Jennifer Hemmer PA Work Phone: [facility] 06-24-2024 10:06-0400 Body mass index (BMI) [Ratio] 29.92 kg/m2 Jennifer Hemmer PA Work Phone: [facility] 06-24-2024 10:06-0400 Body weight 74.21 kg Jennifer Hemmer PA Work Phone: [facility] 06-24-2024 10:06-0400 Diastolic blood pressure 76 mm[Hg] Jennifer Herrera PA Work Phone: [facility] 06-24-2024 10:06-0400 Heart rate 100 /min Jennifer Padillamer PA Work Phone: [facility] 06-24-2024 10:06-0400 Respiratory rate 17 /min Jennifer Padillamer PA Work Phone: [facility] 06-24-2024 10:06-0400 SaO2% (BldA) [Mass fraction] 97 % Jennifer Herrera PA Work Phone: [facility] 06-24-2024 10:06-0400 Systolic blood pressure 110 mm[Hg] Jennifer Herrera PA Work Phone: [facility] 06-22-2024 13:42-0400 Body mass index (BMI) [Ratio] 30.07 kg/m2 Davin Viktoria DO Work Phone: [facility] 06-22-2024 13:42-0400 Body weight 74.57 kg Davin Viktoria DO Work Phone: [facility] 06-22-2024 13:42-0400 Diastolic blood pressure 72 mm[Hg] Davin Viktoria DO Work Phone: [facility] 06-22-2024 13:42-0400 Systolic blood pressure 120 mm[Hg] Davin Viktoria DO Work Phone: [facility] 06-14-2024 11:14-0400 Body height 157.5 cm Davin Viktoria DO Work Phone: [facility] 06-14-2024 11:14-0400 Body mass index (BMI) [Ratio] 29.81 kg/m2 Davin Viktoria DO Work Phone: [facility] 06-14-2024 11:14-0400 Body weight 73.94 kg Davin Viktoria DO Work Phone: [facility] 06-14-2024 11:14-0400 Diastolic blood pressure 78 mm[Hg] Davin Blum DO Work Phone: [facility] 06-14-2024 11:14-0400 Systolic blood pressure 106 mm[Hg] Davin Viktoria DO Work Phone: [facility] 04-14-2024 12:31-0400 Body height 157.48 cm [facility] 04-14-2024 12:31-0400 Body mass index (BMI) [Ratio] 29.5 kg/m2 [facility] 04-14-2024 12:31-0400 Body temperature 98.2 [degF] [facility] 04-14-2024 12:31-0400 Body weight 73.25 kg [facility] 04-14-2024 12:31-0400 Diastolic blood pressure 80 mm[Hg] [facility] 04-14-2024 12:31-0400 Heart rate 102 /min [facility] 04-14-2024 12:31-0400 Respiratory rate 16 /min [facility] 04-14-2024 12:31-0400 SaO2% (BldA) [Mass fraction] 99 % [facility] 04-14-2024 12:31-0400 Systolic blood pressure 125 mm[Hg] [facility] 04-09-2024 11:23-0400 Diastolic blood pressure 87 mm[Hg] [facility] 04-09-2024 11:23-0400 Heart rate 74 /min [facility] 04-09-2024 11:23-0400 Respiratory rate 16 /min [facility] 04-09-2024 11:23-0400 SaO2% (BldA) [Mass fraction] 97 % [facility] 04-09-2024 11:23-0400 Systolic blood pressure 120 mm[Hg] [facility] 12-16-2023 13:15-0400 Body mass index (BMI) [Ratio] 30.12 kg/m2 [facility] 2yr [facility] 12-16-2023 13:15-0400 Body weight 74.71 kg [facility] 2yr [facility] 12-16-2023 13:15-0400 Diastolic blood pressure 82 mm[Hg] [facility]yr [facility] 12-16-2023 13:15-0400 Systolic blood pressure 122 mm[Hg] [facility] 2yr [facility] 11-19-2023 10:31-0500 Body mass index (BMI) [Ratio] 30.91 kg/m2 [facility] Risk [facility] 11-19-2023 10:31-0500 Body temperature 98.1 [degF] [facility] Risk [facility] 11-19-2023 10:31-0500 Body weight 76.66 kg [facility] Risk [facility] 11-19-2023 10:31-0500 Diastolic blood pressure 76 mm[Hg] [facility] Risk [facility] 11-19-2023 10:31-0500 Systolic blood pressure 132 mm[Hg] [facility] Risk [facility] 04-07-2023 14:30-0400 Body weight 69.85 kg Mishel Masseycammy Other [employer] Other 04-07-2023 14:30-0400 Diastolic blood pressure 83 mm[Hg] Mishel Judie Other [employer] Other 04-07-2023 14:30-0400 Respiratory rate 18 /min Mishel Judie Other [employer] Other 04-07-2023 14:30-0400 SaO2% (BldA) [Mass fraction] 99 % Mishel Judie Other [employer] Other 04-07-2023 14:30-0400 Systolic blood pressure 135 mm[Hg] Mishel Dimas Other [employer] Other 07-31-2021 15:30-0400 Body height 160.02 cm Mishel Dimas Other [employer] Other 07-31-2021 15:30-0400 Body mass index (BMI) [Ratio] 22.67 kg/m2 Mishel Dimas Other [employer] Other 07-31-2021 15:30-0400 Body temperature 98.2 [degF] Mishel Dimas Other [employer] Other 07-31-2021 15:30-0400 Body weight 58.06 kg Mishel Dimas Other [employer] Other 07-31-2021 15:30-0400 Diastolic blood pressure 101 mm[Hg] Mishel Dimas Other [employer] Other 07-31-2021 15:30-0400 Respiratory rate 18 /min Mishel Dimas Other [employer] Other 07-31-2021 15:30-0400 SaO2% (BldA) [Mass fraction] 100 % Mishel Dimas Other [employer] Other 07-31-2021 15:30-0400 Systolic blood pressure 135 mm[Hg] Mishel Dimas Other [employer] Other Encounters Encounter Date Encounter Type Care Provider Facility Start: 05-02-2025 End: 05-02-2025 Office outpatient visit 15 minutes Luba LAU Work Phone: [facility] Comment on above: Medication care plan discussed with patient; Encounter for weight management Start: 05-02-2025 End: 05-02-2025 ambulatory LUBA CORRAL Not Available Start: 05-02-2025 End: 05-02-2025 Bamboo flowsheet Luba LAU Work Phone: [facility] Start: 05-02-2025 End: 05-02-2025 Bamboo flowsheet Luba LAU Work Phone: [facility] Start: 03-29-2025 End: 03-29-2025 Bamboo flowsheet Luba Corral PA Work Phone: [facility] Start: 03-29-2025 End: 03-29-2025 Bamboo flowsheet Luba Corral PA Work Phone: [facility] Start: 03-29-2025 End: 03-29-2025 Clinisync Result Encounter Luba LAU Work Phone: [facility] Unsolicited Start: 03-29-2025 End: 03-29-2025 ambulatory LUBA CORRAL Not Available Start: 03-29-2025 End: 03-29-2025 Patient encounter procedure [...] Start: 06-24-2024 End: 06-24-2024 Bamboo flowsheet Jennifer Herrera PA Work Phone: [facility] Start: 06-24-2024 End: 06-24-2024 Office outpatient visit 15 minutes Jennifer LAU Work Phone: [facility] Comment on above: PCOS (polycystic ova emelia syndrome) (Primary Dx); Iron deficiency anemia due to chronic blood loss; Menorrhagia with irregular cycle Start: 06-24-2024 End: 06-24-2024 ambulatory JENNIFER PADILLAALBERT Not Available Start: 06-22-2024 End: 06-22-2024 Patient encounter procedure Davin Viktoria DO Work Phone: [facility] Comment on above: Encounter for IUD in sertion Start: 06-22-2024 End: 06-22-2024 ambulatory DAVIN VIKTORIA Not Available Start: 06-18-2024 End: 06-18-2024 Clinisync Result Encounter Davin Viktoria DO Work Phone: [facility] Unsolicited Start: 06-18-2024 End: 06-18-2024 Clinisync Result Encounter Davin Vitkoria DO Work Phone: [facility] Unsolicited [...] Not Available Start: 04-14-2024 End: 04-14-2024 ambulatory [facility] Work Phone: Start: 04-14-2024 End: 04-14-2024 Patient encounter procedure [facility] [place] Work Phone: Start: 04-09-2024 End: 04-09-2024 ambulatory [facility] Work Phone: Start: 04-09-2024 End: 04-09-2024 Encounter for general adult medical examination without abnormal findings [facility] Start: 04-09-2024 End: 04-09-2024 Patient encounter procedure [facility] Work Phone: Start: 01-02-2024 End: 01-02-2024 ambulatory Shivani Ghosh Facility:[facility] Start: 01-02-2024 End: 01-02-2024 ambulatory DO Mishel Dimas Work Phone: [facility] Work Phone: Start: 01-02-2024 End: 01-02-2024 Patient encounter procedure DO Mishel Dimas Work Phone: [facility]- Visit Work Phone: Start: 12-16-2023 End: 12-16-2023 ambulatory MISHEL DIMAS [facility] Start: 12-16-2023 End: 12-16-2023 care visit [facility] Resident [address] [place] [address] - Women's Services Comment on above: Encounter for postpa rtum visit (Primary Dx) Start: 12-06-2023 Encounter Mishel Melissa salcido DO Work Phone: [address] NICU Start: 12-04-2023 Encounter Mishel Torres loly DO Work Phone: [address] N[facility] Start: 12-01-2023 Encounter Mishel Melisas skaggsi DO Work Phone: [address] NICU Start: 11-28-2023 Encounter Mishel Melissa skaggsi DO Work Phone: [address] NICU Start: 11-25-2023 Encounter Mishel Melissa skaggsi DO Work Phone: [address] NICU Start: 11-21-2023 Encounter Mishel Melissa salcido DO Work Phone: [address] NICU Start: 11-19-2023 End: 11-19-2023 ambulatory MISHEL [facility] Start: 11-19-2023 End: 11-19-2023 Patient encounter procedure [facility] Comment on above: Surgical followup (P rimary Dx) Start: 11-18-2023 Encounter Mishel salcido DO Work Phone: [address] NICU Start: 11-17-2023 Encounter Mishel salcido DO Work Phone: [address] NICU Start: 11-15-2023 Encounter Mishel salcido DO Work Phone: [address] Start: 11-13-2023 End: 11-13-2023 [facility]: 11-06-2023 End: 11-07-2023 Evaluation and management of inpatient [facility] Start: 10-30-2023 End: 10-31-2023 Evaluation and management of inpatient [facility] Start: 10-23-2023 End: 10-24-2023 Evaluation and management of inpatient JAY JAY Hasmukh JERSON [facility] Start: 10-16-2023 End: 10-17-2023 Evaluation and management of inpatient [facility] Start: 10-09-2023 End: 10-10-2023 Evaluation and management of inpatient [facility] Start: 10-02-2023 End: 10-03-2023 Evaluation and management of inpatient [facility] Start: 09-24-2023 End: 09-25-2023 Evaluation and management of inpatient GIANNA [facility] Start: 09-15-2023 End: 09-16-2023 Evaluation and management of inpatient GIANNA SHUFFLE [facility] Start: 09-08-2023 End: 09-09-2023 Evaluation and management of inpatient CARLO ADRIANA [facility] Start: 09-04-2023 End: 09-05-2023 Evaluation and management of inpatient GIANNA [facility] Start: 08-28-2023 End: 11-13-2023 Evaluation and management of inpatient DEIRDRE ZUÑIGA [facility] Start: 04-07-2023 End: 04-07-2023 ambulatory Mishel Dimas Other [employer] Other Start: 04-07-2023 Encounter for genera l adult medical examination without abnormal findings Mishel Dimas [facility] Start: 04-07-2023 Periodic preventive med est patient 18-39 yrs Mishel Dimas [facility] Start: 03-26-2023 End: 03-26-2023 ambulatory Mishel Dimas Facility:[facility] Start: 03-26-2023 End: 03-26-2023 ambulatory DO Mishel Dimas Work Phone: [facility] Work Phone: Start: 03-26-2023 End: 03-26-2023 Patient encounter procedure DO Mishel Dimas Work Phone: [facility] [place] Work Phone: Start: 03-19-2023 End: 03-19-2023 ambulatory Mishel Dimas Other [employer] Other Start: 03-19-2023 Encounter for other specified special examinations Mishel Dimas [facility] Start: 03-19-2023 Telephone encounter Mishel Graff i [facility] Start: 08-06-2022 End: 08-06-2022 ambulatory Mishel Dimas Other [employer] Other Start: 08-06-2022 Telephone encounter Mishel Graff i [employer] Start: 07-29-2022 End: 07-29-2022 ambulatory Mishel Dimas Other [employer] Other Start: 07-29-2022 Telephone encounter Mishel Graff i [facility] Start: 07-22-2022 End: 07-22-2022 ambulatory Mishel Dimas Other [employer] Other Start: 07-22-2022 Telephone encounter Mishel Graff i [facility] Start: 07-19-2022 End: 07-20-2022 Emergency department patient visit Ahmet Negrete ashley Facility:[facility] Start: 07-19-2022 End: 07-20-2022 ambulatory MISHEL Stark JACEKCAMMY Facility:[facility] Start: 11-05-2021 End: 11-05-2021 ambulatory Mishel Dimas Other [employer] Other Start: 11-05-2021 Telephone encounter Mishel Graff i [facility] Start: 07-31-2021 End: 07-31-2021 ambulatory Mishel Dimas Other [employer] Other Start: 07-31-2021 Office outpatient vi sit 25 minutes Mishel Dimas [facility] Procedures Date Procedure Procedure Detail Performing Clinician Start: 03-29-2025 [facility] CMP (CMP) (FOR REMOTE [facility] USE) Luba Corral PA Work Phone: Start: 03-19-2025 [facility] FABY LAU Work Phone: Start: 08-20-2024 ALL DEHYDROEPIANDROSTERONE Davin Viktoria D O Work Phone: Start: 08-13-2024 ALL DHEA SULFATE Davin Viktoria DO Work Phone: Start: 07-08-2024 DAYCARE WORKER INSERTION/REMOVAL OF CONTRACEPTIVE CAPSULE Luba LAU Work Phone: Start: 06-22-2024 IUD INSERTION Davin Brookso DO Work Phone: Start: 06-22-2024 Urine test visual color cmprsn meths Davin Viktoria DO Work Phone: Start: 06-18-2024 ALL CBC WITH AUTO DIFF Davin Viktoria DO Work Phone: Start: 04-14-2024 Quick Strep (POC) Start: 12-16-2023 care Care GIANNA ELIZABETHLE Start: 12-16-2023 Adult depression screening assessment [facility] 2[facility] Start: 11-19-2023 Adult depression screening assessment [facility] Risk Plan of Treatment Date Care Activity Detail Author Start: 09-23-2033 DTaP,Tdap and Td Vaccines (8 - Td or Tdap) DTaP,Tdap and Td Vaccines (8 - Td or Tdap) [facility] Start: 04-04-2026 End: 04-04-2026 Patient encounter procedure [facility] Start: 06-24-2025 End: 06-24-2025 Patient encounter procedure [facility] Start: 05-31-2025 End: 05-31-2025 Patient encounter procedure 05/31/2025 10:00 AM EDT Office Visit [facility] [address] [facility] [place] [place] [address] Luba Corral PA [address] [place] [address] [facility] Start: 05-30-2025 Influenza vaccination [facility] Start: 05-02-2025 End: 05-02-2025 Patient encounter procedure 05/02/2025 2:30 PM EDT Office Visit [facility] [address] [place] [address] Luba Corral PA [address] [place], [place] [id number] Arrived [facility] Comment on above: Arrived Start: 03-29-2025 End: 03-29-2025 Patient encounter procedure 03/29/2025 1:00 PM EDT Office Visit [facility] [address] [phone] Luba Corral PA [address] [place] [address] [facility] Start: 03-22-2025 End: 03-22-2025 Patient encounter procedure 03/22/2025 11:00 AM EDT Office Visit [facility] [address] [phone] Davin Blum DO [address] [place] [address] [facility] Start: 01-18-2025 End: 01-18-2025 Patient encounter procedure 01/18/2025 4:30 PM EDT Office Visit [facility] [address] [facility] [address] [place] [address] Jennifer Herrera PA [address] [place] [address] [place] [address] Arrived [facility] Comment on above: Arrived Start: 12-15-2024 Adult BMI Screening Adult BMI Screen ing [facility] Start: 12-15-2024 Depression Screening Depression Scre ening [facility] Start: 12-15-2024 Tobacco Screening Tobacco Screening [facility] Start: 11-19-2024 Adult BMI Screening Adult BMI Screen ing [facility] Start: 11-19-2024 Depression Screening Depression Scre ening [facility] Start: 11-19-2024 Tobacco Screening Tobacco Screening [facility] Start: 10-04-2024 Tobacco Screening Tobacco Screening [facility] Start: 09-15-2024 Adult BMI Screening Adult BMI Screen ing [facility] Start: 08-29-2024 Screening for Chlamy omaira trachomatis Chlamydia Screening [facility] Start: 07-08-2024 End: 07-08-2024 Patient encounter procedure 07/08/2024 1:30 PM EDT Procedure Visit [facility] [address] [phone] Luba Corral PA [address] [place], [place] [id number] [facility] Start: 06-24-2024 End: 06-24-2024 Patient encounter procedure [facility] Comment on above: Arrived Start: 06-22-2024 End: 06-22-2024 Patient encounter procedure 06/22/2024 1:30 PM EDT Procedure Visit [facility] [address] [phone] Davin Blum DO [address] [place] [place], [place] [phone] [facility] Start: 06-14-2024 End: 06-14-2025 aPTT in Blood by Coagulation assay APTT Lab Routine Menorrhagia with regular cycle Expected: 06/14/2024 (Approximate), Expires: 06/14/2025 [facility] Comment on above: Expected: 06/14/2024 (Approximate), Expires: 06/14/2025 Start: 06-14-2024 End: 06-14-2025 DHEA DHEA Lab Routine Menorrhagia with regular cycle Expected: 06/14/2024 (Approximate), Expires: 06/14/2025 [facility] Comment on above: Expected: 06/14/2024 (Approximate), Expires: 06/14/2025 Start: 06-14-2024 End: 06-14-2025 US for US PELVIS-TRANSVAG IF INDICATED Imaging Routine Menorrhagia with regular cycle Expected: 06/14/2024 (Approximate), Expires: 06/14/2025 [facility] Comment on above: Expected: 06/14/2024 (Approximate), Expires: 06/14/2025 Start: 06-14-2024 End: 06-14-2024 Patient encounter procedure 06/14/2024 11:10 AM EDT Office Visit [facility] [address] [facility] [place] [address] Davin Blum DO [address] [place] [address] Arrived [facility] Comment on above: Arrived Start: 05-30-2024 Influenza vaccination Influenza Vacc ine (#1) [facility] Start: 12-16-2023 End: 12-16-2023 ambulatory 12/16/2023 1:30 PM EDT Visit [facility] [address] [place] [address] [facility] Start: 11-19-2023 End: 11-19-2023 Patient encounter procedure 11/19/2023 10:45 AM EST Office Visit [facility] [address] [place] [address] [facility] Start: 05-30-2023 COVID-19 Vaccine ( season) COVID-19 Vaccine ( season) [facility] Start: 2021 Adult BMI Follow Up Plan Adult BMI Follow Up Plan [facility] Start: 2015 [facility] 25-hydroxyvit[facility] D3 [Mass/volume] in Serum or Plasma Vitamin D 25 hydroxy Total Lab Routine Weight gain PCOS (polycystic ovarian syndrome) Other fatigue Ordered: 01/18/2025 [facility] Work Phone: Comment on above: Ordered: 01/18/2025 CBC panel - Blood by Automated count CBC Lab Routine Iron deficiency anemia due to chronic blood loss Other fatigue Ordered: 01/18/2025 [facility] Comment on above: Ordered: 01/18/2025 CBC W Auto Different ial panel - Blood CBC and differential Lab Routine Menorrhagia with regular cycle Ordered: 06/14/2024 [facility] Comment on above: Ordered: 06/14/2024 Comprehensive metabo lic 2000 panel - Serum or Plasma Comprehensive metabolic panel Lab Routine Well woman exam with routine gynecological exam Ordered: 03/29/2025 [facility] Comment on above: Ordered: 03/29/2025 Cytology Cervical or vaginal smear or scraping study Pap Smear Pathology and Cytology Routine Well woman exam with routine gynecological exam Ordered: 03/29/2025 [facility] Work Phone: Comment on above: Ordered: 03/29/2025 DHEA-sulfate DHEA-sulfate Lab Routine Menorrhagia with regular cycle Ordered: 06/14/2024 [facility] Comment on above: Ordered: 06/14/2024 Follicle stimulating hormone Follicle stimulating hormone Lab Routine Menorrhagia with regular cycle Ordered: 06/14/2024 [facility] Comment on above: Ordered: 06/14/2024 hCG, quantitative, hCG, quantitative, Lab Routine Menorrhagia with regular cycle Ordered: 06/14/2024 [facility] Comment on above: Ordered: 06/14/2024 Hemoglobin A1c/Hemoglobin.total in Blood Hemoglobin A1c Lab Routine Menorrhagia with regular cycle Ordered: 06/14/2024 [facility] Comment on above: Ordered: 06/14/2024 Hemoglobin A1c/Hemoglobin.total in Blood Hemoglobin A1c Lab Routine Well woman exam with routine gynecological exam Ordered: 03/29/2025 [facility] Comment on above: Ordered: 03/29/2025 Iron + transferrin + TIBC Iron + transferrin + TIBC Lab Routine Iron deficiency anemia due to chronic blood loss Other fatigue Ordered: 01/18/2025 [facility] Comment on above: Ordered: 01/18/2025 Luteinizing hormone Luteinizing hormone Lab Routine Menorrhagia with regular cycle Ordered: 06/14/2024 [facility] Comment on above: Ordered: 06/14/2024 Prothrombin time (PT ) in Blood by Coagulation assay Protime-INR Lab Routine Menorrhagia with regular cycle Ordered: 06/14/2024 [facility] Work Phone: Comment on above: Ordered: 06/14/2024 Thyrotropin [Units/volume] in Serum or Plasma TSH Lab Routine Menorrhagia with regular cycle Ordered: 06/14/2024 [facility] Comment on above: Ordered: 06/14/2024 Thyroxine (T4) free [Mass/volume] in Serum or Plasma T4, free Lab Routine Menorrhagia with regular cycle Ordered: 06/14/2024 [facility] Comment on above: Ordered: 06/14/2024 TSH W/REFLEX TO FT4 TSH W/REFLEX TO FT4 Lab Routine Weight gain Family history of thyroid disease Other fatigue Ordered: 01/18/2025 [facility] Comment on above: Ordered: 01/18/2025 [facility] Immunizations Immunization Date Immunization Notes Care Provider Gordon winter 09-23-2023 tetanus toxoid, redu stanislaw diphtheria toxoid, and acellular pertussis vaccine, adsorbed Mishel Rasheedcki DO Work Phone: [facility] 09-22-2023 influenza, injectabl e, quadrivalent, preservative free Mishelsharlene Rasheedcki DO Work Phone: [facility] 09-22-2023 influenza virus vaccine, unspecified formulation Davinesequiel Brookso DO Work Phone: [facility] 05-07-2021 meningococcal polysaccharide (groups A, C, Y and W-135) diphtheria toxoid conjugate vaccine (MCV4P) Mishel Rasheedidalmisbari Other [facility] 03-28-2020 tetanus toxoid, redu stanislaw diphtheria toxoid, and acellular pertussis vaccine, adsorbed DO Mishel Dimas Work Phone: [facility] 04-08-2016 poliovirus vaccine, inactivated Mishel Rasheedcki Other [employer] Other 04-08-2016 human papilloma viru s vaccine, quadrivalent Mishel Rasehedcki Other [facility] 04-08-2016 meningococcal polysaccharide (groups A, C, Y and W-135) diphtheria toxoid conjugate vaccine (MCV4P) Mishel Rasheedcki Other [facility] 04-08-2016 measles, mumps and rubella virus vaccine Mishel Braneliesercki Other [facility] 04-08-2016 poliovirus vaccine, unspecified formulation DO Mishel Dimas Work Phone: [facility] 04-08-2016 varicella virus vaccine Rajesh Dimas Other [facility] Payers Date Payer Category Payer Self-pay [id number] 2022 Unknown HUM [id number] 1 2017 [employer] Blue Shield 1.2.8 [id number] 15 2017 Blue Cross Blue Shield [facility] [id number] 2014 Blue Cross Blue Shield CBKAN [id number] 2.16.840.1.711338.19 2014 Unknown [id number]. 1.13.693.2.7.3.099112.315 2003 Unknown [id number] 2.16.84 0.1.036031.3.579.2.718 2003 Unknown [id number] 2.16.84 0.1.639109.3.579.2.718 2003 Unknown [id number] 2.16.8 40.1.643036.3.579.2.1286 2003 Unknown [id number] 2.16.8 40.1.324533.3.579.2.1286 2003 Unknown [id number] 2.16.8 40.1.234449.3.579.2.128 2003 Unknown [id number] 2.16.8 40.1.427030.3.579.2.1286 2003 Unknown [id number] 2.16.8 40.1.245544.3.579.2.1286 2003 Unknown [id number] 2.16.8 40.1.597976.3.579.2.1286 2003 Unknown [id number] 2.16.8 40.1.248213.3.579.2.1285 2003 Unknown [id number] 2.16.8 40.1.602124.3.579.2.1285 2003 Unknown [id number] 2.16.8 40.1.297312.3.579.2.1285 2003 Unknown [id number] 2.16.8 40.1.058652.3.579.2.1285 2003 Unknown [id number] 2.16.8 40.1.772020.3.579.2.1285 2003 Unknown [id number] 2.16.8 40.1.961772.3.579.2.1285 2003 Unknown [id number] 2.16.8 40.1.701028.3.579.2.1285 2003 Unknown [id number] 2.16.8 40.1.076317.3.579.2.1285 2003 Unknown [id number] 2.16.8 40.1.648946.3.579.2.1285 2003 Unknown [id number] 2.16.8 40.1.852144.3.579.2.1258 2003 Unknown [id number] 2.16.8 40.1.979745.3.579.2.1258 2003 Unknown [id number] 2.16.84 0.1.888559.3.579.2.1258 2003 Unknown [id number] 2.16.84 0.1.193012.3.579.2.1258 2003 Unknown [id number] 2.16.84 0.1.325132.3.579.2.1258 2003 Unknown [id number] 2.16.84 0.1.544485.3.579.2.1258 2003 Unknown [id number] 2.16.84 0.1.927836.3.579.2.1259 Unknown [id number] 2.16.8 40.1.419682.3.579.2.531 Unknown [id number] 2.16.8 40.1.499149.3.579.2.531 Social History Date Type Detail Facility Start: 01-28-2024 End: 01-18-2025 Sex Assigned At [facility] Start: 11-02-2021 End: 06-04-2023 Tobacco smoking status NHIS Never smoked tobacco (finding) [facility] Start: 2003 Sex Assigned At Female [facility] Start: 06-04-2023 End: 08-28-2023 Tobacco use and exposure Smokeless tobacco non-user [facility] Start: 07-08-2024 End: 05-02-2025 Alcoholic beverage intake Lifetime non-drinker (finding) [facility] Start: 01-28-2024 End: 01-18-2025 History of Social function [facility] Do you belong to any clubs or organizations such as latter-day groups, unions, fraternal [...] Alcohol intake Current non-drinker of alcohol (finding) [facility] Start: 08-28-2023 Gender identity Identifies as female gender (finding) [facility] Start: 08-28-2023 Sexual orientation Heterosexual (finding) [facility] Functional Status Date Assessment Result Facility 01-18-2025 Patient Health [facility] ionnaire 2 item (PHQ-2) [Reported] [facility] Clinical Notes 07-30-2017 to 05-02-2025 SDI Hernandez - 05/02/2025 2:30 PM SID Guillaume - 03/29/2025 1:00 PM SID Nevarez - 01/18/2025 4:30 PM EDGomez Santacruz LPN - 07/08/2024 1:30 PM EDT Note Date & Type Note Facility 05-02-2025 History of Presen t illness Narrative Reason for Appointment: Patient ID: Joselin Valenzuela is a 19 y.o. female who presents for discuss medication Patient presents today for Weight Management Consult. MEDICATIONS Current Outpatient Medications Medication Instructions cholecalciferol (VITAMIN D-3) 50 mcg, Oral, Daily ferrous sulfate (FE TABS) 325 mg, Oral, Daily with breakfast, Do not crush, chew, or split. phentermine (ADIPEX-P) 37.5 mg, Oral, Daily before breakfast ALLERGIES No Known Allergies PROBLEMS Active Ambulatory [...] Diagnosis Date Abdominal cramping complicating , antepartum ([facility]) 06/24/2024 Anemia Antepartum bleeding, third trimester ([facility]) 06/24/2024 Irregular menses Ovarian cyst Polycystic ovary [...] Exam Constitutional: Appearance: Normal appearance. She is normal weight. HENT: Head: Normocephalic. Cardiovascular: Rate and Rhythm: Normal rate. Pulses: Normal pulses. Pulmonary: Effort: Pulmonary effort is normal. Breath sounds: Normal breath sounds. Abdominal: Palpations: Abdomen is soft. Musculoskeletal: General: Normal range of motion. Neurological: General: No focal deficit present. Mental Status: She is alert and oriented to person, place, and time. Psychiatric: Mood and Affect: Mood normal. Behavior: Behavior normal. Thought Content: Thought content normal. Judgment: Judgment normal. Vitals and nursing note reviewed. Vitals: Estimated body mass index is 32.7 kg/m as calculated from the following: Height as of 01/18/25: 5' 2 . Weight as of this encounter: 178 lb 12.8 oz. BP: 120/84 No LMP recorded. (Menstrual status: IUD). ASSESSMENT & PLAN ICD-10-CM 1. Medication care plan discussed with patient Z71.89 2. Encounter for weight management Z76.89 phentermine (Adipex-P) 37.5 MG tablet Patient presents today for initial Adipex prescription. The importance of keeping a food journal, proper nutrition/diet, and exercise regimen while taking Adipex has been discussed. Patient verbalized understanding and signed consents to initiate (Adipex) medication therapy. Patient was given a printed prescription signed by provider to take to their local pharmacy. Follow Up: Patient is to return to the office in 1 month for further evaluation to assess patient progress. Weight and blood pressure will need to be captured in order for patient to receive 2nd prescription. Documented by SID Hernandez on behalf of: SID Hernandez documented in this encounter [facility] 03-29-2025 History of Presen t illness Narrative [...] Diagnosis Date Abdominal cramping complicating , antepartum ([facility]) 06/24/2024 Anemia Antepartum bleeding, third trimester ([facility]) 06/24/2024 Irregular menses Ovarian cyst Polycystic ovary [...] nursing note reviewed. Exam conducted with a laundry clerk present. Vitals: Estimated body mass index is [...] of: SID Hernandez documented in this encounter [facility] 01-18-2025 History of Presen t illness Narrative [...] Appointment As Scheduled. documented in this encounter [facility] 07-08-2024 History of Presen t illness Narrative [...] nursing note reviewed. Exam conducted with a laundry clerk present. Vitals: Estimated body mass index is [...] of: SID Hernandez documented in this encounter [facility] 06-24-2024 History of Presen t illness Narrative [...] is still having cramping. Has not called [employer]OK[employer] IN[employer]ER d/t she had this appt and was [...] etc. She and [facility] that she was done having children, [...] up for Wellness. documented in this encounter [facility] 06-22-2024 History of Presen t illness Narrative [...] nursing note reviewed. Exam conducted with a laundry clerk present. Vitals: Estimated body mass index is [...] given: yes Instructions and paperwork completed: yes Blanding protocol: Patient states understanding of procedure being [...] Davin Blum DO documented in this encounter [facility] 06-14-2024 History of Presen t illness Narrative [...] nursing note reviewed. Exam conducted with a laundry clerk present. Vitals: Estimated body mass index is [...] Davin Blum DO documented in this encounter [facility] 12-16-2023 History of Presen t illness Narrative [facility] VIS[facility] Joselin Valenzuela is [...] (eight) hours., Disp: 30 tablet, Rfl: 0 [id number]- 29-1-400 mg combo pack,tablet & cap,, Take [...] as needed. Patient has established care with sports agent close to home. Patient lives an hour away and would prefer to follow up with her sports agent Julieth Edwards MD Stretcher And Drier Resident, PGY-2 Resident Attestation: The patient was [...] Incision healing well. 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 Evelyne Barger DO documented in this encounter [facility] 12-06-2023 Miscellaneous Notes Formattin g of [...] transport of breast milk home. [facility] - [phone] documented in this encounter [facility] 12-06-2023 Obstetrics Note This note was copied from a baby's chart. Met with mother at 's bedside. Stated infant may be discharged soon. Milk supply remains stable with pumping. Mother would like to work on latching when home. medicine outpatient phone number given. Encouraged to make appointment for help with getting baby back to breast. Back pack cooler given for transport of breast milk home. [facility] [phone] [facility] 12-04-2023 Miscellaneous Notes Formattin g of this [...] any other assistance. documented in this encounter [facility] 12-04-2023 Obstetrics Note This note was copied from a baby's chart. Met with mom at infant's bedside. States that pumping continues to go well, she has a stable supply and has felt less engorged. She has been able to pump pain free. No questions or concerns at this time, encouraged to reach out for any other assistance. [facility] 12-01-2023 Miscellaneous Notes Formattin g of this [...] baby is born. Check in with a bilingual customer service specialist if swollen, engorged breasts are still [...] answered, encouragement given. documented in this encounter [facility] [employer] [facility] 12-01-2023 Obstetrics Note This note was [...] baby is born. Check in with a bilingual customer service specialist if swollen, engorged breasts are still [...] is actually removed. Questions answered, encouragement given. [facility] 11-28-2023 Miscellaneous Notes Formattin g of [...] concerns. Support given. documented in this encounter [facility] 11-28-2023 Obstetrics Note This note was copied from a baby's chart. Met with mother at infants bedside. States her supply is stable and has no pain with pumping. Mother plans to exclusively pump and feed. Encouraged her to call out for a LC with any questions or concerns. Support given. [facility] 11-25-2023 Miscellaneous Notes Formattin g of [...] at this time. documented in this encounter [facility] 11-25-2023 Obstetrics Note This note was copied from a baby's chart. Met with mother at 's bedside. Reports that pumping has been much better after getting assistance with flange fit. Is pumping every 2-3 hours and getting 3-5oz each time. Denies pain with pumping. No questions/concerns at this time. [facility] 11-21-2023 Miscellaneous Notes Formattin g of [...] any other assistance. documented in this encounter [facility] 11-21-2023 Obstetrics Note This note was [...] to call out for any other assistance. [facility] 11-19-2023 History of Presen t illness [...] 07/21/2017 Performed by Gustavo Murcia MD at [facility] N/A 11/11/2023 Performed by [facility]ier Hook [facility]A 07/21/2017 Performed by Gustavo Murcia MD at [facility] RADIO FREQUENCY TURBINATE NASAL Bilateral 07/21/2017 Performed by Gustavo Murcia MD at [facility] MEDICAL HX History reviewed. No pertinent past [...] every 8 (eight) hours. 30 tablet 0 [id number] 29-1-400 mg combo pack,tablet & cap,DR Take [...] and discussed with MD Peggy Sanchez MD Stretcher And Drier Resident PGY-4 11/19/23 10:49 AM Seen today [...] weeks for exam documented in this encounter [facility] 11-18-2023 Miscellaneous Notes Formattin g of this [...] breastfeed or pump. documented in this encounter [facility] 11-18-2023 Obstetrics Note This note was copied [...] you are able to breastfeed or pump. [facility] 11-17-2023 Miscellaneous Notes Formattin g of this [...] All questions answered. documented in this encounter [facility] 11-17-2023 Obstetrics Note This note was copied from a baby's chart. Saw mom at infants bedside. Attempting to latch almost every feed for about 10mins having a couple of sucks. States no concerns with pumping or latching. Encourage mom to continue to latch and follow cues. All questions answered. [facility] 11-15-2023 Miscellaneous Notes Formattin g of this [...] as needed.Verbalized understanding. documented in this encounter [facility] 11-15-2023 Obstetrics Note This note was [...] at bedside for support as needed.Verbalized understanding. [facility] 04-07-2023 Evaluation note Encounter Date Diagnosis [...] continues to struggle. Otherwise, continue current care. [facility] Other 06-21-2023 Evaluation note* Encounter Date Diagnosis Assessment Notes Treatment Notes Treatment Clinical Notes Feb, Wellness examination (ICD-10 - Z01.89) Feb, Screening for metabolic disorder (ICD-10 - Z13.228) Feb, Screening for cardiovascular condition (ICD-10 - Z13.6) Feb, Weight gain (ICD-10 - R63.5) [facility] Other 10-31-2022 Evaluation note* Encounter Date Diagnosis Assessment Notes Treatment Notes Treatment Clinical Notes Jun, RLQ abdominal pain (ICD-10 - R10.31) Jun, RUQ abdominal pain (ICD-10 - R10.11) [facility] Other 10-22-2022 NoteEducation Materials Elevated Blood Pressure [...] chicken without skin, beans, eggs, (more content notincluded)...[facility] 07-31-2021 Evaluation note* Encounter Date [...] Nexplanon. I've recommended she discuss with her sports agent, Dr. Harris, whether or not this should be removed and if she should consider alternative forms of contraception. I've offered to check CBC, Iron, and TSH, but patient prefers to meet with Dr. Harris first. [facility] Other 11-01-2017 History general Narrative - Reported* Type Description Date Medical History Depression Medical History broken fingers from sports Medical History sprained right ankle - basketbal l Medical History Contusion to the Right Ankle - S occer Surgical History adenoidecomty 07/2017 Hospitalization History Child [facility] Other Evaluation noteNo InformationNort [employer] Other Evaluation noteNo assessment information available [facility] Work Phone: Evaluation note* Diagnosis Onset Date Resolution Status Menorrhagia with regular cycle acute Encounter for wellness examination noneactive [facility] Work Phone: Evaluation note* Diagnosis Onset Date Resolution Status Menorrhagia with regular cycle acute Encounter for wellness examination noneactive Sore throat noneactive [facility] Work Phone: Evaluation note* Diagnosis Nexplanon removal Encounter for routine checking of intrauterine contraceptive device (IUD) [facility] Diagnosis Menorrhagia with regular cycle documented in this encounter [facility]* Diagnosis PCOS (polycystic ovarian syndrome)- Primary Polycystic ovaries Iron deficiency anemia due to chronic blood loss Iron deficiency anemia secondary to blood loss (chronic) Menorrhagia with irregular cycle documented in this encounter [facility]* Diagnosis Encounter for IUD insertion Insertion of intrauterine contraceptive device documented [facility] encounter [facility]* Diagnosis Surgical followup- Primary documented [facility]* Diagnosis Encounter for visit- Primary documented in this encounter [facility]* Diagnosis Weight gain- Primary [...] (chronic) Other fatigue documented in this encounter [facility]* Diagnosis Well woman exam with routine gynecological exam Routine gynecological examination documented in this encounter [facility]* Diagnosis Medication care plan discussed with patient Encounter for weight management [facility]ructions[facility] on filedocumented in this [facility]Pro[facility] System[facility]ructionsNot on filedocumented in this encounterL[facility] SystemInstructionsNot on filedocumented in this encounterProParma [facility] Summary Purpose Family History No Family [...] Comments Care Reason Comments Well Women Visit Reason Comments discuss medication INFORMATION SOURCE (unrecogn ized section and content) DATE CREATED AUTHOR 07/26/2022 [facility] DATE CREATED AUTHOR AUTHOR'S ORGANIZ ATION 12/17/2023 [facility] DATE CREATED AUTHOR AUTHOR'S ORGANIZ ATION 01/23/2024 [facility] DATE CREATED AUTHOR AUTHOR'S ORGANIZ ATION 01/21/2025 [facility] DATE CREATED AUTHOR AUTHOR'S ORGANIZ ATION 05/04/2025 [facility] dical Specialists [...] April 14, 2024 End: April 14, 2024 Network Intern Relationship Specialty Start Date End Date Noemi Yoo MD [address] [place] [address] PCP - General Family Medicine 06/24/24 Jennifer Herrera PA [address] [place] [address] Physician Dry Cleaning Attendant Family Medicine 06/24/24 Network Intern Relationship Specialty Start Date End Date Noemi Yoo MD [address] [place] [address] PCP - General Family Medicine 06/24/24 Jennifer Herrera PA [address] [facility] [address] [place] [address] Physician Dry Cleaning Attendant Family Medicine 06/24/24 Network Intern Relationship Specialty Start Date End Date Mishel Dimas MD NPI: [id number] [place] [phone] PCP - General Family Medicine 04/14/23 Network Intern Relationship Specialty Start Date End Date Mishel Dimas MD NPI: [id number] [place] [phone] PCP - General Family Medicine 04/14/23 Network Intern Relationship Specialty Start Date End Date Mishel Dimas MD NPI: [id number] [place] [phone] PCP - General Family Medicine 04/14/23 Network Intern Relationship Specialty Start Date End Date Mishel Dimas MD NPI: [id number] [place] [phone] PCP - General Family Medicine 04/14/23 Network Intern Relationship Specialty Start Date End Date Mishel Dimas MD NPI: [id number] [place] [phone] PCP - General Family Medicine 04/14/23 Network Intern Relationship Specialty Start Date End Date Mishel Dimas DO NPI: [id number] [place] [phone] PCP - General Family Medicine 06/23/17 Network Intern Relationship Specialty Start Date End Date Mishel Dimas DO NPI: [id number] [place] [phone] PCP - General Family Medicine 06/23/17 Network Intern Relationship Specialty Start Date End Date Mishel Dimas DO NPI: [id number] [place] [phone] PCP - General Family Medicine 06/23/17 Network Intern Relationship Specialty Start Date End Date Mishel Dimas DO NPI: [id number] [place] [phone] PCP - General Family Medicine 06/23/17 Network Intern Relationship Specialty Start Date End Date Noemi Yoo MD [address] [facility] [address] [place] [address] PCP - General Family Medicine 06/24/24 Jennifer Herrera PA [address] [facility] [address] [place] [address] Physician Dry Cleaning Attendant Family Medicine 06/24/24 Network Intern Relationship Specialty Start Date End Date Noemi Yoo MD [address] [facility] [address] [place] [address] PCP - General Family Medicine 06/24/24 Jennifer Herrera PA [address] [facility] [address] [place] [address] Physician Dry Cleaning Attendant Family Medicine 06/24/24 Network Intern Relationship Specialty Start Date End Date Noemi Yoo MD [address] [facility] [address] [place] [address] PCP - General Family Medicine 06/24/24 Jennifer Herrera PA [address] [facility] [address] [place] [address] Physician Dry Cleaning Attendant Family Medicine 06/24/24 Network Intern Relationship Specialty Start Date End Date Noemi Yoo MD [address] [facility] [address] [place] [address] PCP - General Family Medicine 06/24/24 Jennifer Herrera PA [address] [facility] [address] [place] [address] Physician Dry Cleaning Attendant Family Medicine 06/24/24 Network Intern Relationship Specialty Start Date End Date Noemi Yoo MD [address] [facility] [address] [place] [address] PCP - General Family Medicine 06/24/24 Jennifer Herrera PA [address] [facility] [address] [place] [address] Physician Dry Cleaning Attendant Family Medicine 06/24/24 Goals (unrecognized section and [...] BE BASED ON THE PRIMARY CLINICAL RECORDS. [facility]. provides no warranty or guarantee of the accuracy or completeness of information in this document.
== END 2025-05-31 08:49 | disposition home or self-care (01) ==
LOC: US 08:48
PROVIDERS: PCP Physician Assistant; Visit Provider Obstetrics & Gynecology
DX: N92.1 Excessive and frequent menstruation with irregular cycle (principal); Z97.5 Presence of (intrauterine) contraceptive device
CPT/HCPCS: 76830; 76856

== ENCOUNTER 2025-08-09 09:50 | Outpatient (OUT) | payer BC, OTHER, SELFPAY ==
--- OUTSIDE RECORDS SUMMARY | 2025-07-26 07:40 | XMS_ITS | Encounter Summary ---
Author Organization [facility] Address [address] [place] [address] Care Team Providers Care Shipyard Laborer Name Role Phone Noemi Yoo MD Primary Care Provider [phone] Jennifer Tucker PA Unavailable [phone] Reason for Visit * ReasonCommentsPre-op VisitWeight Management Encounter Details DateTypeDepartmentCare Team (Latest Contact Info)Pvruhikvkox76/28/2025 8:40 AM EDTConsult [facility] [place] [facility] [address] [place] [address] Davin Blum DO [address] [place] [address] Pre-op examination; Encounter for weight management Social History Tobacco UseTypesPacks/DayYears UsedDateSmoking Tobacco: NeverSmokeless Tobacco: NeverAlcohol UseStandard Drinks/WeekCommentsNever0 (1 standard drink = 0.6 oz pure alcohol)Caffeine: occasional [id number] Health LiteracyAnswerDate RecordedHow often do you need to have someone help you when you read instructions, pamphlets, or other written material from your doctor or pharmacy? Never06/22/2025Humiliation, Afraid, Rape, and Kick questionnaireAnswerDate RecordedWithin the last year, have you been afraid of your partner or ex-partner?No06/22/2025Within the last year, have you been humiliated or emotionally abused in other ways by your partner or ex-partner?No06/22/2025 Within the last year, have you been kicked, hit, slapped, or otherwise physically hurt by your partner or ex-partner?No06/22/2025Within the last year, have you been raped or forced to have any kind of sexual activity by your part ner or ex-partner?No06/22/2025Social Connection and Isolation PanelAnswerDate RecordedIn a typical week, how many times do you talk on the phone with family, friends, or neighbors?Twice a week06/22/2025How often do you get together with friends or relatives?Once a week06/22/2025How often do you attend denominational or faith services?1 to 4 times per year06/22/2025Do you belong to any clubs or organizations such as denominational groups, unions, fraternal or athletic groups, or school groups?No06/22/2025How often do you attend meetings of the clubs or organizations you belong to?Never06/22/2025re you , , , , never , or living with a partner?Living with brjtzps2306/22/2025 AUDIT-CAnswerDate RecordedQ1: How often do you have a drink containing alcohol? 2-4 times a month06/22/2025Q2: How many drinks containing alcohol do you have on a typical day when you are drinking?1 or Q3: How often do you have six or more drinks on one occasion?Never06/22/2025Overall Financial Resource Strain (CARDIA)AnswerDate RecordedHow hard is it for you to pay for the very basics like food, housing, medical care, and heating?Not hard at all06/22/2025 PHQ-2AnswerDate RecordedPatient Health Questionnaire-2 Tnqff448Finmountain west medical center [place] of Occupational Health - Occupational Stress QuestionnaireAnswerDate RecordedDo you feel stress - tense, restless, nervous, or anxious, or unable to sleep at night because yourmind is troubled all the time - these days?Only a jhxncr8406/22/2025Exercise Vital SignAnswerDate RecordedOn average, how many days per week do you engage in moderate to strenuous exercise (like a brisk walk)?4 days06/22/2025On average, how many minutes do you engage in exercise at this level?30 min06/22/2025Hunger Vital SignAnswerDate RecordedWithin the past 12 months, you worried that your food would run out before you got the money to buy more.Never true06/22/2025Within the past 12 months, the food you bought just didn't last and you didn't have money to get more.Never true06/22/2025PRAPARE - TransportationAnswerDate RecordedIn the past 12 months, has lack of transportation kept you from medical appointments or from getting medications?No 06/22/2025In the past 12 months, has lack of transportation kept you from meetings, work, or from getting things needed for daily living?No06/22/2025 Housing Stability Vital SignAnswerDate RecordedIn the last 12 months, was there a time when you were not able to pay the mortgage or rent on time?No01/28/2024In the last 12 months, how many places have you lived?In the last 12 months, was there a time when you did not have a steady place to sleep or slept in [facility] (including now)?No01/28/2024Housing Stability Vital SignAnswerDate RecordedIn the last 12 months, was there a time when you were not able to pay the mortgage or rent on time?No06/22/2025In the past 12 months, how many times have you moved where you were living?t any time in the past 12 months, were you homeless or living in a group home (including now)?No06/22/2025 CommentsNoSex and Gender InformationValueDate RecordedSex Assigned at BirthNot on fileLegal YpnGoaxvl51/15/2023 6:51 PM EDTGender IdentityNot on file Sexual OrientationNot on filedocumented as of this encounter Last Filed Vital Signs Vital SignReadingTime TakenCommentsBlood Xhfxevln588/6010/ 8:52 AM EDT Pulse--Temperature--Respiratory Rate--Oxygen Saturation--Inhaled Oxygen Concentration--Tvjppq18.4 kg (164 lb)07/26/2025 8:52 AM EDTHeight--Body Mass Hyfdb9396/30/2025 9:30 AM EDTdocumented in this encounter Progress Notes * Delores Morrison - 07/26/2025 8:40 AM EDT Reason for Appointment: Patient ID: Joselin Valenzuela is a 19 y.o. female who presents for Pre-op Visit and Weight Management Patient presents today for Pre Op appointment. Patient is scheduled to undergo Da Leslie assisted Bilateral Laparoscopic Salpingectomy on 08/19/[address] Blum at [facility]. MEDICATIONS Current Outpatient Medications Medication Instructions cholecalciferol (VITAMIN D-3) 50 mcg, Oral, Daily ferrous sulfate (FE TABS) 325 mg, Oral, Daily with breakfast, Do not crush, chew, or split. phentermine (ADIPEX-P) 37.5 mg, Oral, Daily before breakfast polyethylene glycol (PEG) 3350 (GLYCOLAX) 17 g, Daily ALLERGIES Allergies Allergen Reactions Metformin GI intolerance PROBLEMS Active Ambulatory Problems Diagnosis Date Noted Allergic rhinitis 06/23/2017 PCOS (polycystic ovarian syndrome) 06/24/2024 S/P adenoidectomy 08/04/2017 Deviated septum 09/15/2018 Recurrent major depressive disorder, in full remission 06/24/2024 Menorrhagia with irregular cycle 06/24/2024 Iron deficiency anemia due to chronic blood loss 06/24/2024 Overweight 06/28/2025 Chronic idiopathic constipation 06/28/2025 Vitamin D deficiency 06/28/2025 Resolved Ambulatory Problems Diagnosis Date Noted Antepartum bleeding, third trimester ([facility]) 06/24/2024 Abdominal cramping complicating , antepartum ([facility]) 06/24/2024 UTI (urinary tract infection) 06/24/2024 Adenoid hypertrophy 06/23/2017 Excessive and frequent menstruation 06/24/2024 Class 1 obesity without serious comorbidity with body mass index (BMI) of 31.0 to 31.9 in adult 01/18/2025 Sciatica of left side 06/28/2025 Tongue tied 06/30/2017 Past Medical History: Diagnosis Date Anemia Irregular menses Ovarian cyst Polycystic ovary syndrome Type A blood, Rh positive Urinary tract infection HISTORY PAST MEDICAL HISTORY SOCIAL HISTORY Past Medical History: Diagnosis Date Abdominal cramping complicating , antepartum ([facility]) 06/24/2024 Anemia Antepartum bleeding, third trimester ([facility]) 06/24/2024 Irregular menses Ovarian cyst Polycystic ovary syndrome Sciatica of left side 06/28/2025 Tongue tied 06/30/2017 Type A blood, Rh positive Urinary tract [...] nursing note reviewed. Exam conducted with a garbage person present. Vitals: Estimated body mass index is 30 kg/m?? as calculated from the following: Height as of 25: 5' 2 . Weight as of this encounter: 164 lb. BP: 102/60 No LMP recorded. (Menstrual status: IUD). ASSESSMENT & PLAN ICD-10-CM 1. Pre-op examination Z01.818 2. Encounter for weight management Z76.89 Pre Op: Patient is doing well but has desire for sterilization. I have discussed conservative management vs. surgical management with the patient in detail and patient desires surgical management at this time. Patient has voiced understanding that a Bilateral Salpingectomy is considered to be permanent and patient will undergo Da Leslie assisted Bilateral Laparoscopic Salpingectomy on 08/19/2025. Surgicalconsents were signed, mmc was reviewed, and patient is to proceed to [facility] OR. Follow Up: Patient is to follow up between 1-2 weeks post op to assess proper healing and recovery from procedure. Documented by Jennifer Irving LPN on behalf of: Davin Blum DO documented in this encounter Plan of Treatment DateTypeDepartmentCare Team (Latest Contact Info)Kxpdvoltzoe97/02/2025 9:30 AM ESTOffice Visit [facility] [address] [place] [phone] Luba Corral PA [address] [place] [address] 04/04/2026 10:00 AM EDTOffice Visit [facility] [address] [place] [phone] Luba Corral PA [address] [place] [address] documented as of this encounter Visit Diagnoses Diagnosis Pre-op examination Encounter for weight management documented in this encounter Care Teams Team MemberRelationshipSpecialtyStart DateEnd Date Noemi Yoo MD [address] [place] [address] PCP - GeneralFamily Medicine06/24/24 Jennifer Tucker PA [address] [place] [address] Physician AssistantFamily Medicine06/24/24documented as of this encounter
--- OUTSIDE RECORDS SUMMARY | 2025-07-26 09:30 | XMS_ITS | Encounter Summary ---
Author Organization [facility] Address [address], [address] [place] [address] Care Team Providers Care Forms Designer Name Role Phone Noemi Yoo MD Primary Care Provider [phone] Reason for Visit * ReasonCommentsFollow-upPatient presents for 6 wk f/u for constipation. She is not taking Miralax. She stated Miralax made her nauseous. She only took Miralax for a week. She stopped taking iron supplement which seems to be helping. She is still constipated, but reports she is going more regularly. 2- 3 BM weekly. Denies abdominal pain or rectal bleeding. Encounter Details DateTypeDepartmentCare Team (Latest Contact Info)Sokgbaragax94/28/2025 10:30 AM EDTOffice Visit [facility] Part of [address] [phone] Pat Murcia, CLINICAL NURSING INTERN - CHANNEL ROUGHER [address] [place] [address] [address] [place] [address] Change in bowel habits (Primary Dx); Constipation, unspecified constipation type Social History Tobacco UseTypesPacks/DayYears UsedDateSmoking Tobacco: NeverSmokeless Tobacco: NeverAlcohol UseStandard Drinks/WeekCommentsNot Currently0 (1 standard drink = 0.6 oz pure alcohol)CommentsUnknownSex and Gender InformationValueDate RecordedSex Assigned at YzjdgXagdyv56/21/2025 11:16 AM EDTLegal SexFemale 05/17/2025 3:46 PM EDTGender VlrjiogcTicmyn28/21/2025 11:16 AM EDTSexual DbcmkmayjbnIvfkzzob98/21/2025 11:16 AM EDTdocumented as of this encounter Last Filed Vital Signs Vital SignReadingTime TakenCommentsBlood Pagagqsc099/7907/26/2025 10:58 AM EDT Qbbim607607/26/2025 10:58 AM EDTTemperature--Respiratory Rate--Oxygen Saturation-- Inhaled Oxygen Concentration--Gxplpe25.8 kg (167 lb)07/26/2025 10:58 AM EDT Height--Body Mass Index30.3409 10:47 AM EDTdocumented in this encounter Patient Instructions * Patient Instructions* Dianne Dang MA - 07/26/2025 10:59 AM EDT SURVEY: You may be receiving a survey from [employer] regarding your visit today. You may get this in the mail, through your latakoohart, or in your email. Please complete the survey to enable us to provide the highest quality of care to you and your family. If you cannot score us a very good (5 Stars) on any question, please call the office to discuss howwe could of made your experience exceptional. Thank you! General Surgery MD Dr. Aruna Gage, DO Dr. Baljinder Messer, DO Gastroenterology MD Pat Nickerson APRN-CNP Pain Mgmt. Dr. Som Garcia, DO YANET Newton LPN Brenda Boehler, LPN Jena Adams, MA Emily Akers, MA Stephanie, [place], [place] Office Hours: M- 8-5, F: 812 * Attachments The following attachments cannot be sent through Care Everywhere. * Constipation ([place]) * Colonoscopy: General Info ([place]) documented in this encounter Progress Notes * Pat Murcia APRN - CNP - 07/26/2025 10:50 AM EDT Images from the original note were not included. [address] [facility] [address] [facility] [id number] Chief Complaint Patient presents with Follow-up Patient presents for 6 wk f/u for constipation. She is not taking Miralax. She stated Miralax made her nauseous. She only took Miralax for a week. She stopped taking iron supplement which seems to behelping. She is still constipated, but reports she is going more regularly. 2-3 BM weekly. Denies abdominal pain or rectal bleeding. ALEX Valenzuela is a 19 y.o. old female who has a past medical history of anemia, polycystic ovarian syndrome, initially presented to GI as a new referral with concern for change in bowel habits, chronic constipation that began after a section (11/11/2023). Joselin endorses that she has been having 1 BM per week. She also voices concern that at times it takes her up to 15 minutes to com pletly evacuate her stool. She endorses that her stool appears to be between a Ariton type I-III Joselin endorses that she has tried MiraLAX, for only 2 weeks, taken 1 cap once a day without significant improvements and discontinued. She denies abdominal pain other than lower abdominal cramping that she feels is related to her menses and/or constipation. She has tried dietary adjustments, she has discontinued consuming coffee, soda and is eating smaller portions as she is also trying to lose weight. Medications include Adipex, and oral iron supplementation that was started approximately 2 months ago. Daughter (5 years) with hx of constipation, has seen GI Interval history 07/26/25: GI follow-up OV constipation, change in usual bowel habits for the last 19 months. Joselin endorsesthat she retried MiraLAX, for approximately 1 week, she experienced nausea and discontinued. She voices she also discontinue her oral iron supplement, which did help with some but she complains it still takes at times numerous hours of straining to have a bowel movement. Could not tolerate Miralax, caused nausea. Current Outpatient Medications Medication Sig Dispense Refill levonorgestrel (MIRENA) IUD 52 mg 1 each by IntraUTERine route continuous polyethylene glycol (MIRALAX) 17 GM/SCOOP powder Take 17 g by mouth daily 17 gms in 8 ounces of water. (Patient not taking: Reported on 07/26/2025) 238 g 3 vitamin D (CHOLECALCIFEROL) 50 MCG (1999 UT) CAPS capsule Take 50 mcg by mouth daily (Patient not taking: Reported on 07/26/2025) No current facility-administered medications for this visit. No family history on file. Review of Systems Constitutional: Negative for fatigue, fever and unexpected weight change. Gastrointestinal: Positive for constipation. Negative for abdominal pain, anal bleeding, blood in stool, nausea and vomiting. Endocrine: Negative. Musculoskeletal: Negative. Skin: Negative. Psychiatric/Behavioral: Negative. Physical Exam VS: BP 115/79 (BP Site: Left Upper Arm, Patient Position: Sitting, BP Cuff Size: Large Adult) Pulse 80 Wt 75.8 kg (167 lb) BMI 30.34 kg/m?? Body mass index is 30.34 kg/m??. General Appearance/Constitutional: Alert, NAD.Orientation age-appropriate. HEENT: NCAT. Pulmonary/Chest: Equal chest rise bilaterally, no accessory muscle use Cardiovascular: normal rate, regular rhythm. Abdomen: soft, non-tender, non-distended, normal bowel sounds. Skin: Normal turgor. Warm, dry, without visible rash, unless noted elsewhere. Extremities: no lower extremity edema. Musculoskeletal: normal range of motion, no joint swelling. Neurologic: no cranial nerve deficit, gait, coordination and speech normal. Assessment Joselin Valenzuela is a 19 y.o. old female who has a past medical history of anemia, polycystic ovarian syndrome, presents to GI follow-up OV constipation, change in usual bowel habits for thelast 19 months. Joselin endorses that she retried MiraLAX, for approximately 1 week, she experienced nausea and discontinued. She voices she also discontinue her oral iron supplement, which did help with some but she complains it still takes at times numerous hours of straining to have a bowel movement. Discussed further evaluation with a diagnostic colonoscopy due to concerns of differentials inc luding Anal fissure, Anorectal malformations, Anxiety disorders, Colorectal cancer, Colonic obstruction, Hirschsprung disease, Intestinal motility disorders, Pelvic/rectal masses. Return for PCP as previously scheduled, As recommended post endoscopy. Plan 1. Change in bowel habits - COLONOSCOPY (Diagnostic); Future 2. Constipation, unspecified constipation type - Discussed recommendation to increase fluid, fiber intake and physical activity. - Miralax not tolerated due to nausea. - Start fiber (ex. Metamucil) titrate up to 2-3 times per day as needed. - Start stool softener (ex. Colace OTC as labeled) Spent 20 minutes with the patient with greater than 50 percent of the time was spent on jfub-rq-zpfa time in discussion with the patient regarding diagnostic options/results, treatment options, counseling, and follow-up plan. ELDER Hoover CNP *This report was transcribed using voice recognition software. Every effort was made to ensure accuracy; however, inadvertent computerized plant operator helper errors may be present. documented in this encounter Plan of Treatment NameTypePriorityAssociated DiagnosesOrder ScheduleCOLONOSCOPY (Diagnostic) ProceduresRoutine Change in bowel habits Expected: 07/26/2025, Expires: 07/26/2026documented as of this encounter Visit Diagnoses Diagnosis Change in bowel habits- Primary Other symptoms involving digestive system Constipation, unspecified constipation type documented in this encounter Care Teams Team MemberRelationshipSpecialtyStart DateEnd Date Noemi Yoo MD [address] [place] [id number] PCP - GeneralFamily Medicine06/06/25documented as of this encounter
--- OUTSIDE RECORDS SUMMARY | 2025-08-09 09:55 | XMS_ITS | Encounter Summary ---
Author Organization [facility] Address [address], [address] [place] [address] Care Team Providers Care Dubbing Machine Operator Name Role Phone Noemi Yoo MD Primary Care Provider [phone] Reason for Visit * ReasonOnset DateCommentsSurgery Frtxwvqazj96/28/2025 Encounter Details DateTypeDepartmentCare Team (Latest Contact Info)Nczjdoyyrvm20/28/2025Telephone [facility] Part of [address] [phone] Pat Murcia, MOTHER TESTER - CYLINDER GRINDER [address] [place], [place] [id number] Surgery Scheduling Social History Tobacco UseTypesPacks/DayYears UsedDateSmoking Tobacco: NeverSmokeless Tobacco: NeverAlcohol UseStandard Drinks/WeekCommentsNot Currently0 (1 standard drink = 0.6 oz pure alcohol)CommentsUnknownSex and Gender InformationValueDate RecordedSex Assigned at QdvseFjaozx89/21/2025 11:16 AM EDTLegal SexFemale 05/17/2025 3:46 PM EDTGender JuhdvnemVxtqze18/21/2025 11:16 AM EDTSexual NrbwzszvpafYmdbztha62/21/2025 11:16 AM EDTdocumented as of this encounter Plan of Treatment Not on file documented as of this encounter Visit Diagnoses Diagnosis Change in bowel habit documented in this encounter Care Teams Team MemberRelationshipSpecialtyStart DateEnd Date Noemi Yoo MD [address] [facility] [address] [place] [address] PCP - GeneralFamily Medicine06/06/25documented as of this encounter
--- OUTSIDE RECORDS SUMMARY | 2025-08-09 09:55 | XMS_ITS | Clinical Summary ---
Author Organization [facility] Healthcare Address [address] [place] [address] Care Team Providers Care Athletic Scout Name Role Phone Noemi Yoo MD Primary Care Provider [phone] Jennifer Tucker Unavailable [phone] Allergies Active AllergyReactionsCriticalityNoted DateCommentsMetforminGI intoleranceLow 06/28/2025 Medications MedicationSigDispense QuantityRefillsLast FilledStart DateEnd DateStatus ferrous sulfate (Fe Tabs) 325 (65 Fe) MG EC tablet Indications:Low ferritinTake 1 tablet (325 mg) by mouth in the morning. Take with meals. Do not crush, chew, or split. 30 tablet 5Active cholecalciferol (Vitamin D-3) 50 MCG (2000 UT) capsule Indications:Vitamin D deficiencyTake 1 capsule (50 mcg) by mouth Daily 90 capsule 5Active phentermine (Adipex-P) 37.5 MG tablet Indications:Encounter for weight managementTake 1 tablet (37.5 mg) by mouth in the morning. Take before meals. 30 tablet 5Active polyethylene glycol, PEG, 3350 (Glycolax) 17 GM/SCOOP powder Take 17 g by mouth Daily/12/2024ExpiredHospital, Clinic, or Other Facility Administered MedicationOrdered DoseRouteFrequencyStart DateEnd Date Status Levonorgestrel intrauterine device 52 mg Indications:Encounter for IUD pazyqvkjt31 rkPXCerfrejbff91 Active Active Problems ProblemNoted DateDiagnosed YaurMutrwrrrlc73/30/2025hronic idiopathic btgsmoxekyyk52/30/2025Vitamin D jrbltnizrg41/30/2025PCOS (polycystic ovarian syndrome)06/24/2024ecurrent major depressive disorder, in full remission 06/24/2024Menorrhagia with irregular cycle06/24/2024Iron deficiency anemia due to chronic blood loss06/24/2024eviated jlbrzn9509/15/2018S/P adenoidectomy 08/04/2017Allergic enkrgrrn54/25/2017 Resolved Problems ProblemNoted DateDiagnosed DateResolved DateSciatica of left side06/28/2025 06/28/2025lass 1 obesity without serious comorbidity with body mass index (BMI) of 31.0 to 31.9 in adultntepartum bleeding, third trimester ([facility])bdominal cramping complicating , antepartum ([facility])UTI (urinary tract infection)06/24/2024 06/24/2024Excessive and frequent bnhkpehslyth71Tongue tied denoid fwzetgfswto79 Encounters DateTypeDepartmentCare YlutLnptzfebtaq96/28/2025 8:40 AM EDTConsult N[facility] [address] [place] [address] Nenita Blum DO Pre-op examination; Encounter for weight qypronylpq68/28/2025amboo flowsheet [facility] [address] [place] [address] Nenita Blum DO 07/19/20256358Utospb59/06/2025bstract [facility] [address] [place] [phone] Noemi Yoo MD 06/29/2025bstract [facility] [address] [place] [address] Ambika Cuevas [place] 06/29/2025Telephone [facility] [address] [place] [address] Ambika Cuevas MA 06/28/2025 10:30 AM EDTOffice Visit [facility] [address] [place] [address] Khushboo Burnett, MAHOGANY Encounter for weight management; Vaginal ciycpbbph40/30/2025 9:30 AM EDTOffice Visit [facility] [address] [place] [phone] Jennifer Tucker PA Wellness examination (Primary Dx); Encounter for immunization; Overweight; Menorrhagia with irregular cycle; PCOS (polycystic ovarian syndrome); Iron deficiency anemia due to chronic blood loss; Seasonal allergic rhinitis due to pollen; Deviated septum; S/P adenoidectomy; Recurrent major depressive disorder, in full remission ; Chronic idiopathic constipation; Vitamin D /30/2025External Result Encounter NOMS External Department Unsolicited Khushboo Burnett NP 06/28/2025amboo flowsheet [facility] [address] [place] [phone] Jennifer Tucker PA 06/28/20258099Hupkbg77/24/0224Iicozc24/02/2025 10:00 AM EDTOffice Visit [facility] [place] [facility] [address] [place] [address] Luba Corral PA Encounter for weight nxygbzyqzl49/02/2025bstract [facility] [address] [place] [phone] Noemi Yoo MD 05/31/2025linisync Result Encounter NOMS External Department Unsolicited Provider, Generic External Data 09/02/2025Bamboo flowsheet [facility] [address] [place] [address] Luba Corral PA 05/25/2025Telephone [facility] [place] [facility] [address] [place] [phone] Nenita Blum DO from Last 3 Months Immunizations ImmunizationAdministration DatesNext DueInfluenza, [place] Lorrie Canine Kidney, subunit, trivalent, injectable, contains pckyxpkqknsd23/30/2025 Family History Medical HistoryRelationNameCommentsSeizuresBrother 3DylanPacemakerMaternal GrandfatherThyroid diseaseMaternal GrandmotherAutismOtherMaternal and paternal brothersEpilepsyOtherMaternal brotherThyroid diseaseSisterRelationNameStatus CommentsBrother 1AliveBrother 2AliveBrother 3DylanDaughterAliveFatherAlive Maternal GrandfatherMaternal GrandmotherMotherAliveOtherSisterAliveSonAlive Social History Tobacco UseTypesPacks/DayYears UsedDateSmoking Tobacco: NeverSmokeless Tobacco: Never Tobacco Cessation:Counseling Given: Not Answered Alcohol UseStandard Drinks/WeekCommentsNever0 (1 standard drink = 0.6 oz pure alcohol)Caffeine: occasional lhciqjzrvI8488 Health LiteracyAnswerDate Recorded How often do you need to have someone help you when you read instructions, pamphlets, or other written material from your doctor or pharmacy?Never 06/22/2025Humiliation, Afraid, Rape, and Kick questionnaireAnswerDate Recorded Within the last year, have you been afraid of your partner or ex-partner?No 06/22/2025Within the last year, have you been humiliated or emotionally abused in other ways by your partner or ex-partner?No06/22/2025Within the last year, have you been kicked, hit, slapped, or otherwise physically hurt by your partner or ex-partner?No06/22/2025Within the last year, have you been raped or forced to have any kind of sexual activity by your partner or ex-partner?No06/22/2025 Social Connection and Isolation PanelAnswerDate RecordedIn a typical week, how many times do you talk on the phone with family, friends, or neighbors?Twice a week06/22/2025How often do you get together with friends or relatives?Once a week06/22/2025How often do you attend quaker or islam services?1 to 4 times per year06/22/2025Do you belong to any clubs or organizations such as quaker groups, unions, fraternal or athletic groups, or school groups?No06/22/2025How often do you attend meetings of the clubs or organizations you belong to?Never 06/22/2025re you , , , , never , or living with a partner?Living with gecufji5406/22/2025UDIT-CAnswerDate RecordedQ1: How often do you have a drink containing alcohol?2-4 times a month06/22/2025Q2: How many drinks containing alcohol do you have on a typical day when you are drinking?1 or Q3: How often do you have six or more drinks on one occasion?Never06/22/2025Overall Financial Resource Strain (CARDIA)AnswerDate RecordedHow hard is it for you to pay for the very basics like food, housing, medical care, and heating?Not hard at all06/22/2025PHQ-2AnswerDate Recorded Patient Health Questionnaire-2 Rlpmx447[facility] Occup[facility] - Occupational Stress QuestionnaireAnswerDate RecordedDo you feel stress - tense, restless, nervous, or anxious, or unable to sleep at night because your mind is troubled all the time - these days?Only a hplsim3506/22/2025Exercise Vital SignAnswerDate RecordedOn average, how many days per week do you engage in moderate to strenuous exercise (like a brisk walk)?4 days06/22/2025On average, how many minutes do you engage in exercise at this level?30 min06/22/2025Hunger Vital SignAnswerDate RecordedWithin the past 12 months, you worried that your food would run out before you got the money to buymore.Never true06/22/2025 Within the past 12 months, the food you bought just didn't last and you didn't have money to get more.Never true06/22/2025PRAPARE - TransportationAnswerDate RecordedIn the past 12 months, has lack of transportation kept you from medical appointments or from getting medications?No06/22/2025In the past 12 months, has lack of transportation kept you from meetings, work, or from getting things needed for daily living?No06/22/2025Housing Stability Vital SignAnswerDate RecordedIn the last 12 months, was there a time when you were not able to pay the mortgage or rent on time?No01/28/2024In the last 12 months, how many places have you lived?In the last 12 months, was there a time when you did not have a steady place to sleep or slept in [place] (including now)?No 01/28/2024Housing Stability Vital SignAnswerDate RecordedIn the last 12 months, was there a time when you were not able to pay the mortgage or rent on time?No 06/22/2025In the past 12 months, how many times have you moved where you were living?t any time in the past 12 months, were you homeless or living in a [facility] (including now)?No06/22/2025CommentsNoSex and Gender InformationValueDate RecordedSex Assigned at BirthNot on fileLegal SexFemale 12/11/2022 6:51 PM EDTGender IdentityNot on fileSexual OrientationNot on file Last Filed Vital Signs Vital SignReadingTime TakenCommentsBlood Tynjlrij582/6010 8:52 AM EDT Kiuca482206/28/2025 9:30 AM MTHPplzzotrocq15.9 ??C (96.7 ??F)02/03/2024 9:02 AM EDTRespiratory Fcrx510406/28/2025 9:30 AM EDTOxygen Mrvzmlanaj41%06/28/2025 9:30 AM EDTInhaled Oxygen Concentration--Dkaclk49.4 kg (164 lb)07/26/2025 8:52 AM EDT Xwwmri949.5 cm (5' 2 )06/28/2025 9:30 AM EDTBody Mass Fbwms1120/30/2025 9:30 AM EDT Plan of Treatment DateTypeDepartmentCare Team (Latest Contact Info)Dhvmasqwfqw05/02/2025 9:30 AM ESTOffice Visit [facility] [address] [place] [address] [place] [phone] Luba Corral PA [address] [facility] [address] [place], [place] [phone] 04/04/2026 10:00 AM EDTOffice Visit [facility] [address] [place] [address] Luba Corral, PA [address] [facility] [address] [place], [place] [phone] Health MaintenanceDue DateLast DoneCommentsCOVID-19 Vaccine ( season) /, 03/05/2021Influenza LcqwzzgTcrbefmvd75/30/2025, 09/22/2023, 11/05/2005Pneumococcal Vaccine: Pediatrics (0 to 5 Years) and At- Risk Patients (6 to 64 Years)Aged OutNo longer eligible based on patient's age to complete this topic Procedures Procedure NamePriorityDate/TimeAssociated DiagnosisCommentsRECURRENT VAGINITIS (HTRX)Vykgrud6406/28/2025 11:27 AM EDT US PELVIS W/ ENUEAAESKCPO35/02/2025 1:20 PM EDT from Last 3 Months Results * (ABNORMAL) RECURRENT VAGINITIS (HTRX) (06/28/2025 11:27 AM EDT)ComponentValue Ref RangeTest MethodAnalysis TimePerformed AtPathologist SignatureATOPOBIUM EBLWYDI98.483(A)19.961 - 24.689 ppm06/29/2025 9:19 AM EDTHealthTrackRx at LabPortATOPOBIUM VAGINAEDetected(A)19.961 - 24.689 ppm06/29/2025 9:19 AM EDT [facility] at LabPortBVAB 2,3 (BACTERIAL VAGINOSIS ASSOCIATED BACTERIA 2, 3); MOBILUNCUS SPP21.106(A)19.961 - 24.689 ppm06/29/2025 9:19 AM EDT [facility] at LabPortBVAB 2,3 (BACTERIAL VAGINOSIS ASSOCIATED BACTERIA 2, 3); MOBILUNCUS SPPDetected(A)19.961 - 24.689 ppm06/29/2025 9:19 AM EDT [facility] at LabPortCANDIDA ALBICANS, PARAPSILOSIS, YIDGAYGJDV605.000 - 30.347 ppm06/29/2025 9:19 AM EDTHealthTrackRx at LabPortCANDIDA ALBICANS, PARAPSILOSIS, TROPICALISNot Sgqafnvs33.000 - 30.347 ppm06/29/2025 9:19 AM EDT [facility] at LabPortCANDIDA WIAMUYSU829.000 - 31.618 ppm06/29/2025 9:19 AM EDTHealthTrackRx at LabPortCANDIDA GLABRATANot Ycobpvsk72.000 - 31.618 ppm 06/29/2025 9:19 AM EDTHealthTrackRx at LabPortCANDIDA BSFULF331.000 - 30.873 ppm06/29/2025 9:19 AM EDTHealthTrackRx at LabPortCANDIDA KRUSEINot Detected 23.000 - 30.873 ppm06/29/2025 9:19 AM EDTHealthTrackRx at LabPortCHLAMYDIA JKTRSIZNORE958.000 - 31.586 ppm06/29/2025 9:19 AM EDTHealthTrackRx at [facility] CHLAMYDIA TRACHOMATISNot Ytinievt03.000 - 31.586 ppm06/29/2025 9:19 AM EDT [facility] at LabPortGARDNERELLA RHBKLULEQ55.735(A)19.961 - 24.689 ppm 06/29/2025 9:19 AM EDTHealthTrackRx at LabPortGARDNERELLA VAGINALISDetected(A) 19.961 - 24.689 ppm06/29/2025 9:19 AM EDTHealthTrackRx at [facility] HospitalMEGASPHAERA (TYPES 1, 2)019.961 - 24.689 ppm06/29/2025 9:19 AM EDTHealthTrackRx at [facility] MEGASPHAERA (TYPES 1, 2)Not Lzeohngt40.961 - 24.689 ppm06/29/2025 9:19 AM EDT [facility] HospitalNEISSERIA WEWHYSTMPHY206.000 - 32.587 ppm06/29/2025 9:19 AM EDTHealthTrackRx at [facility] HospitalNEISSERIA GONORRHOEAENot Ujjuvywr67.000 - 32.587 ppm06/29/2025 9:19 AM EDTHealthTrackRx at LabBhc [facility] HospitalTRICHOMONAS VAGINALIS0 23.000 - 31.995 ppm06/29/2025 9:19 AM EDTHealthTrackRx at [facility] HospitalTRICHOMONAS VAGINALISNot Wrzyajvr63.000 - 31.995 ppm06/29/2025 9:19 AM EDTHealthTrackRx at [facility] HospitalMYCOPLASMA UFQLKNGSVX937.961 - 24.689 ppm06/29/2025 9:19 AM EDT [facility] HospitalMYCOPLASMA GENITALIUMNot Jndwopwt59.961 - 24.689 ppm 06/29/2025 9:19 AM EDTHealthTrackRx at [facility] HospitalTET B, TET M26.99(A)23.000 - 27.500 ppm06/29/2025 9:19 AM EDTHealthTrackRx at [facility] HospitalTET B, TET MDetected (A)23.000 - 27.500 ppm06/29/2025 9:19 AM EDTHealthTrackRx at [facility] HospitalSpecimen (Source)Anatomical Location / LateralityCollection Method / VolumeCollection TimeReceived IlgtAjjuud82/30/2025 11:27 AM EDT1 3:11 AM EDT Narrative Authorizing ProviderResult TypeResult StatusKrpama Lex LAB BLOOD ORDERABLESFinal ResultPerforming OrganizationAddressCity/State/ZIP CodePhone Number [facility] [address] [place] [address], [place] [address] * US PELVIS W/ TRANSVAGINAL (05/31/2025 1:20 PM EDT)Anatomical RegionLaterality ModalityOtherSpecimen (Source)Anatomical Location / LateralityCollection Method / VolumeCollection TimeReceived Time05/31/2025 1:20 PM EDT Narrative 05/31/2025 1:23 PM EDT [facility] ?[address] ? [place] [address] ? Ultrasound Report ? Signed ? Patient: JOSELIN BLACKBURN D ?MR#: [id number] ?? : 2005 ?Acct:[id number] ?? Age/Sex: 19 / F ?ADM Date: 05/31/25 ?? Loc: US ? Attending Dr: Nenita Blum D.O. ? Ordering Physician: Nenita Blum D.O. ?? Date of Service: 05/31/25 ?? Procedure(s): US pelvis w/ transvaginal ?? Accession Number(s): [id number] ? cc: Nenita Blum D.O.; JENNIFER TUCKER ? [facility] ? [address] ? [place] [address] ? Patient Name: ?? JOSELIN BLACKBURN ? MRN: [facility]:[id number] ? date: 2005 ?Sex: F ?? Assigned Patient Location: US ?? Current Patient Location: US ?? Accession/Order Number: [id number] ?? Exam Date: 05/31/2025 ??09:00 ?Report Date: 05/31/2025 ??13:20 ? At the request of: ?? NENITA ??GIOVANY ??DO ? Procedure: ??US pelvis w/ transvaginal ? ULTRASOUND PELVIS WITH TRANSVAGINAL ? COMPARISON: 06/18/2024 ? CLINICAL DATA: Vaginal discharge and cramping. ??IUD for the past year. ? Real-time ultrasound evaluation the pelvis was performed utilizing both a ?? transabdominal and transvaginal approach. ? TRANSABDOMINAL: The urinary bladder is not fully distended. ??Estimated uterine ?? size is approximately 7.9 x 3.9 x 6.7 cm. ??The endometrial lining is estimated ?? at 4 - 5 mm. ??No focal myometrial abnormalities are seen. ??The left ovary is ?? identified however the right is not discretely seen. ? TRANSVAGINAL: Transvaginal imaging was performed to better evaluate the uterus ?? and adnexa. ??By this approach, there are no focal myometrial abnormalities. ? The endometrial lining measures approximately 3 mm in size. ??The IUD appears ?? to be low-lying positioned at the lower uterine segment/cervix. ??Both ovaries ?? are identified by this approach and there are multiple subcentimeter follicles ?? bilaterally. ??The right ovary measures 3.8 x 1.9 x 2.4 cm. ??The left ovary ?? measures 3.4 x 2.7 x 3.1 cm. ??No dominant adnexal cysts are seen. ??There is ?? documentation of duplex and color Doppler blood flow. ??The resistive index on ?? the right is 0.5 and on the left 0.4. ??No free fluid is noted. ? US/US pelvis w/ transvaginal ?? IMPRESSION: ? ABNORMALLY LOW POSITION OF IUD. ? NO DOMINANT ADNEXAL CYSTS. ? Impression dictated by: Jennifer Buitrago M.D. ??05/31/2025 1:20 PM ? Dictation Location: [facility] ? Electronically authenticated by: [id number] ??Y ?? Date: 05/31/2025 ??13:20 ? Dictated By: ?Jennifer Buitrago M.D. ? Signed By: ?05/31/25 1323 ? DD/ 1320 ? TD/TT: ? Diorama Model Maker: Procedure Note Radiology, MD Osvaldo - 05/31/2025 [place] [address] Ultrasound Report Signed Patient: JOSELIN BLACKBURN DMR#: [id number] : 2005Acct:[id number] Age/Sex: 19 / FADM Date: 05/31/25 Loc: US Attending Dr: Nenita Blum D.O. Ordering Physician: Nenita Blum D.O. Date of Service: 05/31/25 Procedure(s): US pelvis w/ transvaginal Accession Number(s): [id number] cc: Nenita Blum D.O.; JENNIFER TUCKER [address] [address] Patient Name: JOSELIN BLACKBURN MRN: [id number] date: 2005 Sex: F Assigned Patient Location: US Current Patient Location: US Accession/Order Number: [id number] Exam Date: 05/31/2025 09:00 Report Date: 05/31/2025 13:20 At the request of: NENITA BLUM DO Procedure: US pelvis w/ transvaginal ULTRASOUND PELVIS WITH TRANSVAGINAL COMPARISON: 06/18/2024 CLINICAL DATA: Vaginal discharge and cramping. IUD for the past year. Real-time ultrasound evaluation the pelvis was performed utilizing both a transabdominal and transvaginal approach. TRANSABDOMINAL: The urinary bladder is not fully distended. Estimateduterine size is approximately 7.9 x 3.9 x 6.7 cm. The endometrial lining isestimated at 4 - 5 mm. No focal myometrial abnormalities are seen. The left ovaryis identified however the right is not discretely seen. TRANSVAGINAL: Transvaginal imaging was performed to better evaluate theuterus and adnexa. By this approach, there are no focal myometrialabnormalities. The endometrial lining measures approximately 3 mm in size. The IUDappears to be low-lying positioned at the lower uterine segment/cervix. Bothovaries are identified by this approach and there are multiple subcentimeterfollicles bilaterally. The right ovary measures 3.8 x 1.9 x 2.4 cm. The left ovary measures 3.4 x 2.7 x 3.1 cm. No dominant adnexal cysts are seen. Thereis documentation of duplex and color Doppler blood flow. The resistive indexon the right is 0.5 and on the left 0.4. No free fluid is noted. US/US pelvis w/ transvaginal IMPRESSION: ABNORMALLY LOW POSITION OF IUD. NO DOMINANT ADNEXAL CYSTS. Impression dictated by: Jennifer Buitrago M.D. 05/31/2025 1:20 PM Dictation Location: [facility] [employer] Electronically authenticated by: [id number] Y Date: 3:20 Dictated By: Jennifer Buitrago M.D. Signed By:05/31/25 1323 DD/ 1320 TD/TT: Diorama Model Maker: Authorizing ProviderResult TypeResult StatusGeneric External Data Provider [facility]ISYNC IMAGINGFinal Result from Last 3 Months Insurance MemberSubscriberPlan / Payer (Effective 2017-Present)Name:Joselin Blackburn Relation to Subscriber:ChildName:YOUSUF WISEMAN Date of :1978 Address: [address] [place] [address] Payer ID:Not on file Type:Not on file Address: [place] [id number] Care Teams Team MemberRelationshipSpecialtyStart DateEnd Date Noemi Yoo MD [address] [address] PCP - GeneralFamily Medicine06/24/24 Jennifer Tucker PA [address] [address] Physician AssistantFamily Medicine06/24/24
--- OUTSIDE RECORDS SUMMARY | 2025-08-09 09:55 | XMS_ITS | Encounter Summary ---
Author Organization [facility] Address [address] [place] [address] Care Team Providers Care Paediatric Surgeon Name Role Phone Deshawn Caal MD Primary Care Provider [phone] Noemi Yoo MD Primary Care Provider [phone] Jennifer Tucker Unavailable [phone] Encounter Details DateTypeDepartmentCare Team (Latest Contact Info)Kcggpzmgsfv26/25/2024Clinisync Result Encounter [facility] External Department Unsolicited Nenita Blum, DO [address] [place] [address] Social History Tobacco UseTypesPacks/DayYears UsedDateSmoking Tobacco: NeverSmokeless Tobacco: NeverAlcohol UseStandard Drinks/WeekCommentsNever0 (1 standard drink = 0.6 oz pure alcohol)Caffeine: occasional tucztzzfcU9213 Health LiteracyAnswerDate RecordedHow often do you need [...] relatives?Once a week06/22/2025How often do you attend anabaptist or mandaeism services?1 to 4 times per year06/22/2025Do you belong to any clubs or organizations such as anabaptist groups, unions, fraOnaro or athletic groups, or school groups?No06/22/2025How often do you attend meetings of the clubs or organizations you belong to?Never06/22/2025re you , , , , never , or living with a partner?Living with tmkcdsn5306/22/2025 AUDIT-CAnswerDate RecordedQ1: How often do you have [...] hard at all06/22/2025 PHQ-2AnswerDate RecordedPatient Health Questionnaire-2 Dotnx786Finprimary [facility] [place] of Occupational Health - Occupational Stress QuestionnaireAnswerDate RecordedDo you feel stress - tense, restless, nervous, or anxious, or unable to sleep at night because yourmind is troubled all the time - these days?Only a hmflpl5306/22/2025Exercise Vital SignAnswerDate RecordedOn average, how many days [...] steady place to sleep or slept in [facility] (including now)?No01/28/2024Housing Stability Vital SignAnswerDate RecordedIn the last 12 months, was there a time when you were not able to pay the mortgage or rent on time?No06/22/2025In the past 12 months, how many times have you moved where you were living?t any time in the past 12 months, were you homeless or living in a senior living (including now)?No06/22/2025 CommentsNoSex and Gender InformationValueDate RecordedSex Assigned at BirthNot on fileLegal AisGuyjqq05/15/2023 6:51 PM EDTGender IdentityNot on file Sexual OrientationNot on filedocumented as of this encounter Functional Status * AUDIT-C ScoreAnswerDate of RmubdjrissFxwayn734/24/2025 9:38 PM EDTMychart, Generic * Q1: How often do you have a drink containing alcohol?AnswerDate of Assessment Author2-4 times a month06/22/2025 9:38 PM EDTMychart, Generic * Q2: How many drinks containing alcohol do you have on a typical day when you are drinking?AnswerDate of AssessmentAuthor1 or 9:38 PM EDT Mychart, Generic * Q3: How often do you have six or more drinks on one occasion?AnswerDate of HnxyrarlnpStwhzbNkpjs70/24/2025 9:38 PM EDTMychart, Generic * Over the past 2 weeks, how often have you been bothered by any of the following problems?QuestionAnswerDate of AssessmentAuthorLittle interest or pleasure in doing thingsNot at all06/28/2025 9:22 AM Samara Romero LPN Feeling down, depressed, or hopelessNot at all06/28/2025 9:22 AM Samara Romero LPNPatient Health Questionnaire-2 Ngcdb706 9:22 AM Samara Romero LPN documented as of this encounter Plan of Treatment DateTypeDepartmentCare Team (Latest Contact Info)Sujasghfkdw42/02/2025 9:30 AM ESTOffice Visit NOMNydia ACOSTA [address] [place] [address] Luba Corral PA [address] [place], [place] [address] 04/04/2026 10:00 AM EDTOffice Visit NOMNydia ACOSTA [address] [place] [address] Luba Corral PA [address] [place], [place] [address] documented as of this encounter Procedures Procedure NamePriorityDate/TimeAssociated DiagnosisCommentsUS PELVIS W/ RDJEXILFCGDE42/25/2024 9:26 AM EDT documented in this encounter Results * US PELVIS W/ TRANSVAGINAL (01/22/2024 9:26 AM EDT)Anatomical RegionLaterality ModalityOtherSpecimen (Source)Anatomical Location / LateralityCollection Method / VolumeCollection TimeReceived Time01/22/2024 9:26 AM EDT Narrative 01/22/2024 9:[address] [facility] ?[address] ? [place] [address] ? Ultrasound Report ? Signed ? Patient: JOSELIN BLACKBURN ?MR#: [id number] ?? : 2005 ?Acct:[id number] ?? Age/Sex: 18 / F ?ADM Date: 01/22/24 ?? Loc[facility] ? Attending Dr: Nenita Blum D.O. ? Ordering Physician: Nenita Blum D.O. ?? Date of Service: 01/22/24 ?? Procedure(s): US pelvis w/ transvaginal ?? Accession Number(s): [id number] ? cc: Nenita Blum D.O.; Physician,Non-Staff Marissa ? [facility] ? [address] ? [place] [address] ? Patient Name: ?? JOSELIN ??BLACKBURN ? MRN: [facility]:[id number] ? date: 2005 ?Sex: F ?? Assigned Patient Location[facility] ?? Current Patient Location: [facility] ?? Accession/Order Number: [id number] ?? Exam Date: 01/22/2024 ??08:24 ?Report Date: 01/22/2024 ??09:26 ? At the request of: ?? NENITA ??VIKTORIA ? Procedure: ??US pelvis w/ transvaginal ? EXAM: Pelvic ultrasound ? HISTORY: . HEMORRHAGE . ? COMPARISON: None. ? TECHNIQUE: Transabdominal and transvaginal scanning was performed ? FINDINGS: Scanning of the pelvis demonstrates uterus to measure 8.9 x 4.4 x ?? 6.5 ?? cm. ? Endometrial complex measures 5 mm and appears homogeneous. ? Right ovary measures 3.2 x 3.2 x 1.9 cm. Color-flow is noted. Resistive ?? indexes ?? 0.6. Follicles are noted. ? Left ovary measures 3.2 x 2 x 3.3 cm. Color-flow is noted. Resistive indexes ?? 0.5. Follicles are noted. ? No fluid is noted in the cul-de-sac. ? US/US pelvis w/ transvaginal ?? IMPRESSION: ? Normal ultrasound of the pelvis. ? Electronically authenticated by: DEIRDRE ??ROBI ?? Date: 01/22/2024 ??09:26 ? Dictated By: ?Deirdre Espino M.D. ? Signed By: ?01/22/24927 ? DD/ 5 ? TD/TT: ? Rn Surgery: Procedure Note Radiology, Radiologist, - 01/22/2024 [place] [address] Ultrasound Report Signed Patient: JOSELNI BLACKBURNMR#: [id number] : 2005Acct:[id number] Age/Sex: 18 / FADM Date: 01/22/24 Loc: [facility] Attending Dr: Nenita Blum D.O. Ordering Physician: Nenita Blum D.O. Date of Service: 01/22/24 Procedure(s): US pelvis w/ transvaginal Accession Number(s): [id number] cc: Nenita Blum D.O.; Physician,Non-Staff M.[facility] The [place] [address] Patient Name: JOSELIN BLACKBURN MRN: [id number] date: 2005 Sex: F Assigned Patient Location: [facility] Current Patient Location: [facility] Accession/Order Number: [id number] Exam Date: 01/22/2024 08:24 Report Date: 01/22/2024 [...] Espino M.D. Signed By:01/22/24927 DD/ 5 TD/TT: Rn Surgery: Authorizing ProviderResult TypeResult StatusCorey Viktoria DOCLINISYNC IMAGINGFinal Result documented in this encounter Visit Diagnoses Not on filedocumented in this encounter Care Teams Team MemberRelationshipSpecialtyStart DateEnd Date Deshawn Caal MD PCP - GeneralFamily Medicine Noemi Yoo MD [address] [facility] [address] [place] [address] PCP - GeneralFamily Medicine06/24/24 Jennifer Tucker PA [address] [facility] [address] [place] [address] Physician AssistantFamily Medicine06/24/24documented as of this encounter
--- OUTSIDE RECORDS SUMMARY | 2025-08-09 09:55 | XMS_ITS | Encounter Summary ---
Author Organization [facility] Address [address] [place] [address] Care Team Providers Care Setup Technician Name Role Phone Noemi Yoo MD Primary Care Provider [phone] Jennifer Tucker PA Unavailable [phone] Encounter Details DateTypeDepartmentCare Team (Latest Contact Info)Uhkuyampitu73/28/2025Bamboo flowsheet NOMNydia [place] [facility] [address] [place] [place] [address] Davin Blum DO [address] [place] [address] Social History Tobacco UseTypesPacks/DayYears UsedDateSmoking Tobacco: NeverSmokeless Tobacco: NeverAlcohol UseStandard Drinks/WeekCommentsNever0 (1 standard drink = 0.6 oz pure alcohol)Caffeine: occasional uhcaydjshX9991 Health LiteracyAnswerDate RecordedHow often do you need [...] relatives?Once a week06/22/2025How often do you attend cheondoism or presybeterian services?1 to 4 times per year06/22/2025Do you belong to any clubs or organizations such as cheondoism groups, unions, fraShoutfit or athletic groups, or school groups?No06/22/2025How often do you attend meetings of the clubs or organizations you belong to?Never06/22/2025re you , , , , never , or living with a partner?Living with cssfogv8106/22/2025 AUDIT-CAnswerDate RecordedQ1: How often do you have [...] hard at all06/22/2025 PHQ-2AnswerDate RecordedPatient Health Questionnaire-2 Roxar141Finheber valley medical center [facility] of Occupational Health - Occupational Stress QuestionnaireAnswerDate RecordedDo you feel stress - tense, restless, nervous, or anxious, or unable to sleep at night because yourmind is troubled all the time - these days?Only a aewgdp9306/22/2025Exercise Vital SignAnswerDate RecordedOn average, how many days [...] steady place to sleep or slept in [facility] (including now)?No01/28/2024Housing Stability Vital SignAnswerDate RecordedIn the last 12 months, was there a time when you were not able to pay the mortgage or rent on time?No06/22/2025In the past 12 months, how many times have you moved where you were living?t any time in the past 12 months, were you homeless or living in a usp (including now)?No06/22/2025 CommentsNoSex and Gender InformationValueDate RecordedSex Assigned at BirthNot on fileLegal IerGyrtjs02/15/2023 6:51 PM EDTGender IdentityNot on file Sexual OrientationNot on filedocumented as of this encounter Plan of Treatment DateTypeDepartmentCare Team (Latest Contact Info)Itidrthnvro58/02/2025 9:30 AM ESTOffice Visit [facility] Fern ACOSTA [address] [place] [address] Luba Corral PA [address] [place] [address] 04/04/2026 10:00 AM EDTOffice Visit [facility] Fern ACOSTA [address] [facility] [place] [address] Luba Corral PA [address] [place], [place] [address] documented as of this encounter Visit Diagnoses Not on filedocumented in this encounter Care Teams Team MemberRelationshipSpecialtyStart DateEnd Date Noemi Yoo MD [address] [place] [address] PCP - GeneralFamily Medicine06/24/24 Jennifer Tucker PA [address] [place] [address] [place] [address] Physician AssistantFamily Medicine06/24/24documented as of this encounter
--- OUTSIDE RECORDS SUMMARY | 2025-08-09 09:55 | XMS_ITS | Clinical Summary ---
Author Organization [facility] Address [id number] [place] [address] Care Team Providers Care Rectifying Operator Name Role Phone Deshawn Caal DO Primary Care Provider [phone] Allergies No known active allergies Medications MedicationSigDispense QuantityRefillsLast FilledStart DateEnd DateStatus ykrhoifo23-nfwh-iefqm- 29-1-400 mg combo pack,tablet & cap,DR Take 1 tablet by mouth.Active acetaminophen (TYLENOL EXTRA STRENGTH) 500 mg tablet Take 2 tablets (1,000 mg total) by mouth every 8 (eight) hours. 30 tablet 11/13/2023ctive Additional Information Patient not taking.Reported on 12/16/2023 docusate sodium (COLACE) 100 mg capsule Take 1 capsule (100 mg total) by mouth in the morning and 1 capsule (100 mg total) before bedtime. 60 capsule 11/13/2023ctive Additional Information Patient not taking.Reported on 12/16/2023 ibuprofen (MOTRIN) 800 mg tablet Take 1 tablet (800 mg total) by mouth every 8 (eight) hours. 30 tablet 11/13/2023ctive Additional Information Patient not taking.Reported on 12/16/2023 Active Problems ProblemNoted DateDiagnosed DateDeviated oekgey2209/15/2018Other acute sinusitis 10/27/2017S/P mawoxqccnjckk68/06/2017Tongue tied06/30/2017Nasal congestion 06/23/2017Allergic sybuiemv06/25/2017Adenoid sqwwqtmglep39/25/2017 Resolved Problems ProblemNoted DateDiagnosed DateResolved DateVasa / Intrauterine qastiyeqq37 Immunizations ImmunizationAdministration DatesNext DueInfluenza, Injectable, quadrivalent (PF) 09/22/2023Tdap111/24/2022 Family History RelationNameStatusCommentsFatherAliveMotherAlive Social History Tobacco UseTypesPacks/DayYears UsedDateSmoking Tobacco: NeverSmokeless Tobacco: Never Tobacco Cessation:Counseling Given: Not Answered Alcohol UseStandard Drinks/WeekCommentsNo0 (1 standard drink = 0.6 oz pure alcohol)Overall Financial Resource Strain (CARDIA)AnswerDate RecordedHow hard is it for you to pay for the very basics like food, housing, medical care, and heating?Not hard at all12/14/2023HQ-2AnswerDate RecordedTotal Nmwud629 [place] Depression ScaleAnswerDate RecordedEdinburgh Depression Scale Cknev717The thought of harming myself has occurred to me.Never12/16/2023Housing InstabilityAnswerDate RecordedAre you worried or concerned that in the next two months you may not have stable housing that you own, rent or stay in as a part of a household?No11/19/2023hildcareAnswerDate RecordedDo problems getting child support case officer make it difficult for you to work or study?No12/14/2023EmploymentAnswerDate TrkpijtyAjhtskwrysKzuyvaz89/10/2019Hunger ScreeningAnswerDate RecordedWithin the past 12 months we worried whether our food would run out before we got money to buy more.Never True12/16/2023Within the past 12 months the food we bought just didn't last and we didn't have money to get more.Never True12/16/2023urpose - LifeAnswerDate RecordedPurpose and direction in ohmiEprdqfh92/10/2021CommentsNoSex and Gender Information ValueDate RecordedSex Assigned at JmnvrLkbfdv65/30/2023 5:58 PM ESTLegal Sex Pjlopb0805/02/2015 2:06 PM EDTGender UlnsoiixTkxhdz05/30/2023 5:58 PM ESTSexual LwythaituqvNvkppdzc88/30/2023 5:58 PM EST Last Filed Vital Signs Vital SignReadingTime TakenCommentsBlood Ikumdctr843/8203/ 1:15 PM EDT Rkhhu154211/13/2023 3:00 PM HVASkgesiqmxnj78.7 ??C (98.1 ??F)11/19/2023 10:31 AM ESTRespiratory Hbky135711/13/2023 3:00 PM ESTOxygen Vnyltzoohp62%11/11/2023 2:45 PM ESTInhaled Oxygen Concentration--Ekqvmh13.7 kg (164 lb 11.2 oz)12/16/2023 1:15 PM YZKYrmico342.5 cm (5' 2 )08/28/2023 5:55 PM ESTBody Mass Index30.12 08/28/2023 5:55 PM EST Plan of Treatment Health MaintenanceDue DateLast DoneCommentsPap Smear4Chlamydia Dipwllbfn93/09/2022, 02/24/2020, 02/13/2020Adult BMI Screening /4Depression Jtnaevuup48/, 12/14/2023Tobacco Qblqkwoll62/4COVID-19 Vaccine ( season)2025 03/26/2021, 03/05/2021Influenza Utphpbk36/, 11/05/2005DTaP,Tdap and Td Vaccines (8 - Td or Tdap), 03/28/2020, 04/08/2016, Additional history exists Medical Devices Not on file Procedures Procedure NamePriorityDate/TimeAssociated DiagnosisCommentsCHLAMYDIA/GC BY PCR SADIA QXOGLJTF99/28/2020 7:22 PM EDT from Last 3 Months or Most Recently Relevant to Health Maintenance Results * Chlamydia/GC by PCR Sadia Swab (02/24/2020 7:22 PM EDT)ComponentValueRef Range Test MethodAnalysis TimePerformed AtPathologist SignatureSpecimen sourceCERVIX 02/24/2020 7:23 PM [facility] LABChlamydia DNA PCRNegative Negative^Klzrfsuz06/29/2020 11:01 AM [facility] LABComment: ? Chlamydia trachomatis not detected by nucleic acid amplification. This does not exclude the possibility of infection because results are dependent on adequate specimen collection. ? Gonorrhea DNA PCRNegativeNegative^Bibwncfk56/29/2020 11:01 AM [facility] LABComment: ? Neisseria gonorrhoeae not detected by nucleic acid amplification. This does not exclude the possibility of infection because results are dependent on adequate specimen collection. ? Specimen (Source)Anatomical Location / LateralityCollection Method / Volume Collection TimeReceived TimeSwab (GENS)02/24/2020 7:22 PM EDT02/24/2020 7:22 PM EDT Narrative Authorizing ProviderResult TypeResult StatusCarmen Zen Benitez MDMICROBIOLOGY - GENERAL ORDERABLESFinal ResultPerforming OrganizationAddressCity/State/ZIP Code Phone Number [facility] [address], [address] [place] [address] from Last 3 Months or Most Recently Relevant to Health Maintenance Insurance MemberSubscriberPlan / Payer (Effective 2017-Present)Name:Joselin Valenzuela Relation to Subscriber:ChildName:GIGI WISEMAN Date of :1975 Address: [address] [place] [address] Payer ID:[id number] (NAIC) Type:Not on file Address: [facility] [address] [place] [phone] MemberSubscriberPlan / Payer (Effective 2017-Present)Name:Joselin Valenzuela Relation to Subscriber:ChildName:GIGI WISEMAN Date of :1977 Address: [address] [place] [address] Payer ID:[id number] (NAIC) Type:Not on file Address: [address] [place] [phone] Advance Directives * Full Code (Latest Code Status on File) Date ActivatedDate RmniqfmdvweQopnvfeo74/30/2023 6:14 PM2 6:20 PM * Full Code Date ActivatedDate InactivatedComments02/24/2020 6:30 PM02/25/2020 2:46 PM Care Teams Team MemberRelationshipSpecialtyStart DateEnd Date Deshawn Caal DO PCP - GeneralFamily Medicine06/23/17
--- OUTSIDE RECORDS SUMMARY | 2025-08-09 09:55 | XMS_ITS | Clinical Summary ---
Author Organization [facility] Address [address], [address] [place] [address] Care Team Providers Care Etl Analyst Name Role Phone Noemi Yoo MD Primary Care Provider [phone] Allergies Active AllergyReactionsCriticalityNoted DateCommentsMetforminNausea And Vomiting Low06/28/2025 Medications MedicationSigDispense QuantityRefillsLast FilledStart DateEnd DateStatus vitamin D (CHOLECALCIFEROL) 50 MCG (1999) CAPS capsule Take 50 mcg by mouth daily5Active levonorgestrel (MIRENA) IUD 52 mg 1 each by IntraUTERine route sctgycljuf12ctive ferrous sulfate (FE TABS 325) 325 (65 Fe) MG EC tablet Take 1 tablet by mouth daily (with breakfast)Discontinued (LIST CLEANUP) metFORMIN (GLUCOPHAGE-XR) 500 MG extended release tablet TAKE 1 TABLET BY MOUTH IN THE EVENING. TAKE WITH MEALS. DO NOT CRUSH, CHEW, OR SPLITDiscontinued(LIST CLEANUP) polyethylene glycol (MIRALAX) 17 GM/SCOOP powder Indications:Constipation, unspecified constipation typeTake 17 g by mouth daily 17 gms in 8 ounces of water. 238 g 5110/02/2024Expired Additional Information Patient not taking.Reported on 07/26/2025 Active Problems ProblemNoted DateDiagnosed DateChange in bowel habit10/28/2025Class 1 obesity without serious comorbidity with body mass index (BMI) of 31.0 to 31.9 in adult 01/18/2025Iron deficiency anemia due to chronic blood loss06/24/2024Major depressive disorder, single episode, ztmbvfif22/26/2024Menorrhagia with irregular cycle06/24/2024COS (polycystic ovarian syndrome)06/24/2024eviated lngkxf4509/15/2018Other acute odhnxnzmm64/29/2018S/P ovvmksemnbhjw48/06/2017Tongue tied06/30/2017Allergic zujiyaet51/25/2017Adenoid zpeagrffpxy63/25/2017Nasal vcfqwdflmu10/25/2017 Encounters DateTypeDepartmentCare MfwsWnlxqpwlzmz57/28/2025 10:30 AM EDTOffice Visit [facility] Part of [address] [place] [phone] Pat Murcia APRN - YANET Change in bowel habits (Primary Dx); Constipation, unspecified constipation type07/26/2025Telephone [facility] Part of [address] [place] [address] Pat Murcia APRN - YANET Surgery Asojqlvqbo41/09/2025 10:30 AM EDTOffice Visit [facility] Part of [address] [place] [address] Pat Murcia TILE SETTER APPRENTICE - OUTDOOR STUDIES PROFESSOR Constipation, unspecified constipation type05/17/2025Orders Only [facility] SURGERY Part of [address] [place] [phone] Talia Cash LPN 05/17/2025bstract [facility] Part of [address] [place] [address] Pat Murcia APRN - YANET from Last 3 Months Immunizations ImmunizationAdministration DatesNext DueInfluenza Virus Chpcatc4609/22/2023TDaP, ADACEL (age 10y-64y), BOOSTRIX (age 10y+), IM, 0.5mL09/23/2023 Social History Tobacco UseTypesPacks/DayYears UsedDateSmoking Tobacco: NeverSmokeless Tobacco: Never Tobacco Cessation:Counseling Given: Not Answered Alcohol UseStandard Drinks/WeekCommentsNot Currently0 (1 standard drink = 0.6 oz pure alcohol)CommentsUnknownSex and Gender InformationValueDate Recorded Sex Assigned at HdlfvUfksog04/21/2025 11:16 AM EDTLegal EzkHnthze60/19/2025 3:46 PM EDTGender OxdlgvavTepaxn61/21/2025 11:16 AM EDTSexual OrientationStraight 07/19/2025 11:16 AM EDT Last Filed Vital Signs Vital SignReadingTime TakenCommentsBlood Secranrp542/7907/26/2025 10:58 AM EDT Fihzo626907/26/2025 10:58 AM EDTTemperature--Respiratory Qxgf1007 10:47 AM EDTOxygen Vdtqwgwyrz45%06/07/2025 10:47 AM EDTInhaled Oxygen Concentration-- Sohcks99.8 kg (167 lb)07/26/2025 10:58 AM ODRQrkbhb643 cm (5' 2.21 )06/07/2025 10:47 AM EDTBody Mass Index30.3409 10:47 AM EDT Plan of Treatment Health MaintenanceDue DateLast DoneCommentsDepression Tlpgpjwrwu53/13/2015HPV vaccine (2 - 2-dose series)HIV pfdtaz9708/11/2018Chlamydia/GC oneobx2508/11/2019Meningococcal B vaccine (1 of 2 - Standard)2019Hepatitis C kqgtcd811Pap smear4COVID-19 Vaccine (3 - 2024- season) /, 1DTaP/Tdap/Td vaccine (8 - Td or Tdap)09/23/2033 09/23/2023, 03/28/2020, 04/08/2016, Additional history existsHepatitis B vaccine Xkhjvcyne41/04/2005, 2003, 2003Hib yknvqaeJcghkwmdn18/04/2005, 2003, 2003Pneumococcal 0-49 years VaccineAged Out11/05/2005, 05/14/2005, 2003, Additional history existsNo longer eligible based on patient's age to complete this topicPolio mxtqwgjXiylcukdw36/11/2016, 05/14/2005, 11/30/2004, Additional history existsVaricella vaccineCompleted 04/08/2016, 05/14/2005Meningococcal (ACWY) ikxybyrKqqpryuut39/09/2021, 04/08/2016Flu ryqgsahGerepwqcy12/30/2025, 09/22/2023Hepatitis A vaccineAged Out No longer eligible based on patient's age to complete this topic Insurance Care Teams Team MemberRelationshipSpecialtyStart DateEnd Date Noemi Yoo MD [address] [place] [address] [facility]
--- OUTSIDE RECORDS SUMMARY | 2025-08-09 09:55 | XMS_ITS | Patient Health Record ---
Author Organization [facility] Address [address] [place] [address] Care Team Providers Care Pathology Transcriptionist Name Role Phone Katerin Chase Unavailable [phone] Reason For Referral No Information Problems Problem Type SNOMED Code ICD Code Onset Dates Problem Status W/U Status Risk Notes Problem Primigravida (058254205) Encount er for supervision of normal first , unspecified trimester (Z34.00) Activeconfirm Plan Of Treatment No Information Insurance Providers Payer Name Payer Address Payer Phone Subscriber Number Group Number Insured Name Patient Relationship to Insured Coverage Start Date Coverage End Date ANTHEM Primary [address] [place] [address] [id number] ALEXEY REBECA Self - patient is the insured [address] [place] [address] [place] [address] [id number], MADISONSelf - patient is the insured 2015 Medical (General) History Medical History History ICD Code seasonal Surgical History Surgery Date(Month/Year) adenoidectomy 2018
--- OUTSIDE RECORDS SUMMARY | 2025-08-09 09:56 | XMS_ITS | Encounter Summary ---
Author Organization [facility] Address [address] [place] [address] Care Team Providers Care Material Distributor Name Role Phone Deshawn Caal MD Primary Care Provider [phone] Noemi Yoo MD Primary Care Provider [phone] Jennifer Tucker PA Unavailable [phone] Encounter Details DateTypeDepartmentCare Team (Latest Contact Info)Udpevzsttni80/22/2024Clinisync Result Encounter [facility] External Department Unsolicited Nenita Blum, DO [address] [place] [address] Social History Tobacco UseTypesPacks/DayYears UsedDateSmoking Tobacco: NeverSmokeless Tobacco: NeverAlcohol UseStandard Drinks/WeekCommentsNever0 (1 standard drink = 0.6 oz pure alcohol)Caffeine: occasional [id number] Health LiteracyAnswerDate RecordedHow often do you need [...] relatives?Once a week06/22/2025How often do you attend synagogue or restoration services?1 to 4 times per year06/22/2025Do you belong to any clubs or organizations such as synagogue groups, unions, fraAndroJek or athletic groups, or school groups?No06/22/2025How often do you attend meetings of the clubs or organizations you belong to?Never06/22/2025re you , , , , never , or living with a partner?Living with cnnftcv3706/22/2025 AUDIT-CAnswerDate RecordedQ1: How often do you have [...] hard at all06/22/2025 PHQ-2AnswerDate RecordedPatient Health Questionnaire-2 Asbbc190[facility] [place] of Occup[facility] - Occupational Stress QuestionnaireAnswerDate RecordedDo you feel stress - tense, restless, nervous, or anxious, or unable to sleep at night because yourmind is troubled all the time - these days?Only a zxabjr7306/22/2025Exercise Vital SignAnswerDate RecordedOn average, how many days [...] steady place to sleep or slept in [facility] (including now)?No01/28/2024Housing Stability Vital SignAnswerDate RecordedIn the last 12 months, was there a time when you were not able to pay the mortgage or rent on time?No06/22/2025In the past 12 months, how many times have you moved where you were living?t any time in the past 12 months, were you homeless or living in a long-term (including now)?No06/22/2025 CommentsNoSex and Gender InformationValueDate RecordedSex Assigned at BirthNot on fileLegal PdrZatmch35/15/2023 6:51 PM EDTGender IdentityNot on file Sexual OrientationNot on filedocumented as of this encounter Functional Status * AUDIT-C ScoreAnswerDate of KpaowwiurySapisw303/24/2025 9:38 PM EDTMychart, Generic * Q1: How [...] or more drinks on one occasion?AnswerDate of HhhszobgnrEojshjZognn56/24/2025 9:38 PM EDTMychart, Generic * Over the past 2 weeks, how often have you been bothered by any of the following problems?QuestionAnswerDate of AssessmentAuthorLittle interest or pleasure in doing thingsNot at all06/28/2025 9:22 AM Samara Romero LPN Feeling down, depressed, or hopelessNot at all06/28/2025 9:22 AM Samara Romero LPNPatient Health Questionnaire-2 Yssqo338 9:22 AM Samara Romero LPN documented as of this encounter Plan of Treatment DateTypeDepartmentCare Team (Latest Contact Info)Dfxlgnuwvwz06/02/2025 9:30 AM ESTOffice Visit NOMNydia ACOSTA [address] [place] [address] Luba Corral PA [address] [place], [place] [address] 04/04/2026 10:00 AM EDTOffice Visit NOMNydia ACOSTA [address] [place] [address] Luba Corral PA [address] [place], [place] [address] documented as of this encounter Procedures Procedure NamePriorityDate/TimeAssociated DiagnosisCommentsUS PELVIS W/ IJOZSZSAVIMV84/22/2024 8:49 PM EDT documented in this encounter Results * US PELVIS W/ TRANSVAGINAL (06/20/2024 8:49 PM EDT)Anatomical RegionLaterality ModalityOtherSpecimen (Source)Anatomical Location / LateralityCollection Method / VolumeCollection TimeReceived Time06/20/2024 8:49 PM EDT Narrative 06/20/2024 8:51 PM EDT [facility] ?[address] ? [place] [address] ? Ultrasound Report ? Signed ? Patient: JOSELIN BLACKBURN ?MR#: [id number] ?? : 2005 ?Acct:[id number] ?? Age/Sex: 18 / F ?ADM Date: 06/18/24 ?? Loc: US ? Attending Dr: Nenita Blum D.O. ? Ordering Physician: Nenita Blum D.O. ?? Date of Service: 06/18/24 ?? Procedure(s): US pelvis w/ transvaginal ?? Accession Number(s): [id number] ? cc: Nenita Blum D.O.; Physician,Non-Staff Marissa ? [facility] ? [address] ? [place] [address] ? Patient Name: ?? JOSELIN ??BLACKBURN ? MRN: [facility]:[id number] ? date: 2005 ?Sex: F ?? Assigned Patient Location: US ?? Current Patient Location: US ?? Accession/Order Number: [id number] ?? Exam Date: 06/18/2024 ??10:05 ?Report Date: 06/20/2024 ??20:49 ? At the request of: ?? NENITA ??VIKTORIA ? Procedure: ??US pelvis w/ transvaginal ? PROCEDURE: US PELVIS W/ TRANSVAGINAL, 06/18/2024 10:05 AM EDT ? CLINICAL INDICATIONS: Pelvic pain, abnormal uterine bleeding for 2 weeks, ?? prior ?? section. ?? 2 para 2. ?? LMP 05/23/2024. ? COMPARISON: 01/22/2024. ? TECHNIQUE: Transabdominal, transvaginal pelvic sonogram, grayscale color and ?? spectral assessment. ? FINDINGS: ? Uterus: 9.0 x 4.3 x 5.2 cm. Endometrial echo complex 0.3 cm. Normal uterine ?? sonographic morphology. No focal abnormality demonstrated. ? Right ovary: 3.8 x 2.3 x 3.3 cm volume 15 mL. Subcentimeter follicle seen. ?? Normal sonographic morphology. ? Left ovary: 3.4 x 2.2 x 2.7 cm, volume 10 mL. Subcentimeter follicle seen. ?? Normal sonographic morphology. ? DUPLEX PELVIC VASCULATURE: There is intact flow within the ovarian tissue ?? bilaterally by color-flow assessment. Arterial spectral tracing is identified ?? from within. Right resistive index 0.43, left 0.52. ? No significant free fluid. ? US/US pelvis w/ transvaginal ?? IMPRESSION: ? 1. Normal uterine and bilateral ovarian sonographic morphology. ? 2. No pathology demonstrated. ? Electronically authenticated by: HERMELINDA ??FATIMAH ?? Date: 06/20/2024 ??20:49 ? Dictated By: ?Hermelinda Sheridan M.D. ? Signed By: ?06/20/242050 ? DD/ 48 ? TD/TT: ? Systems Accountant: Procedure Note Radiology, Radiologist, - 06/20/2024 [place] [address] Ultrasound Report Signed Patient: JOSELIN BLACKBURNMR#: [id number] : 2005Acct:[id number] Age/Sex: Date: 06/18/24 Loc: US Attending Dr: Nenita Blum D.O. Ordering Physician: Nenita Blum D.O. Date of Service: 06/18/24 Procedure(s): US pelvis w/ transvaginal Accession Number(s): [id number] cc: Nenita Blum D.O.; Physician,Non-Staff M.DNancy The [address] [address] Patient Name: JOSELIN BLACKBURN MRN: [id number] date: 2005 Sex: F Assigned Patient Location: US Current Patient Location: US Accession/Order Number: [id number] Exam Date: 06/18/2024 10:05 Report Date: 06/20/2024 [...] Sheridan M.D. Signed By:06/20/242050 DD/ 48 TD/TT: Systems Accountant: Authorizing ProviderResult TypeResult StatusCorey Viktoria DOCLINISYNC IMAGINGFinal Result documented in this encounter Visit Diagnoses Not on filedocumented in this encounter Care Teams Team MemberRelationshipSpecialtyStart DateEnd Date Deshawn Caal MD PCP - GeneralFamily Medicine Noemi Yoo MD [address] [address] PCP - GeneralFamily Medicine06/24/24 Jennifer Tucker PA [address] [address] Physician AssistantFamily Medicine06/24/24documented as of this encounter
== END 2025-08-09 09:51 | disposition home or self-care (01) ==
LOC: PST 09:52
PROVIDERS: PCP Physician Assistant; Visit Provider Obstetrics & Gynecology
DX: Z01.818 Encounter for other preprocedural examination (principal)

== ENCOUNTER 2025-08-19 08:48 | Day surgery (SDC) | payer BC, OTHER, SELFPAY ==
[2025-08-09 10:28] VITALS: BP 130/85; PULSE 74; TEMP 36.3; O2SAT 100; BMI 30.4
[2025-08-19] VITALS (10 sets, daily range): BP systolic 124–148; BP diastolic 82–108; PULSE 72–108; TEMP 36.3–36.6; O2SAT 93–99
--- OUTSIDE RECORDS SUMMARY | 2025-08-19 08:51 | XMS_ITS | Clinical Summary ---
Author Organization [facility] Healthcare Address [address] [place] [address] Care Team Providers Care Tapper Supervisor Name Role Phone Noemi Yoo MD Primary Care Provider [phone] Jennifer Tucker Unavailable [phone] Allergies Active AllergyReactionsCriticalityNoted DateCommentsMetforminGI intoleranceLow 06/28/2025 [...] intrauterine device 52 mg Indications:Encounter for IUD vaxttrdim86 peQOAyabxrhhmw41 Active Active Problems ProblemNoted DateDiagnosed HflwFhduuomogw74/30/2025hronic idiopathic hyqgisadkbko97/30/2025Vitamin D ubjfqrylxc82/30/2025PCOS (polycystic ovarian syndrome)06/24/2024ecurrent major depressive disorder, in full remission 06/24/2024Menorrhagia with irregular cycle06/24/2024Iron deficiency anemia due to chronic blood loss06/24/2024eviated bfpwai9809/15/2018S/P adenoidectomy 08/04/2017Allergic /25/2017 Resolved Problems ProblemNoted DateDiagnosed DateResolved DateSciatica of left side06/28/2025 06/28/2025lass 1 obesity without serious comorbidity with body mass index (BMI) of 31.0 to 31.9 in adultntepartum bleeding, third trimester ([facility])bdominal cramping complicating , antepartum ([facility])UTI (urinary tract infection)06/24/2024 06/24/2024Excessive and frequent rhsnbtmzwiqc17Tongue tied denoid ypyzmeftgke51 Encounters DateTypeDepartmentCare OcflMioylhecdxt18/28/2025 8:40 AM EDTConsult NOMS Fern ACOSTA [address] [address] Nenita Blum DO Pre-op examination; Encounter for weight rcigugbdia81/28/2025amboo flowsheet [facility] Fern ACOSTA [address] [place] [address] Nenita Blum DO 07/19/20253391Mxsuop99/06/2025bstract [facility] [address] [place] [phone] Noemi Yoo MD 06/29/2025bstract [facility] Fern ACOSTA [address] [address] Ambika Cuevas NE 06/29/2025Telephone [facility] [address] [address] Ambika Cuevas MA 06/28/2025 10:30 AM EDTOffice Visit [facility] Fern OBGYN [address] [address] Khushboo Burnett, MAHOGANY Encounter for weight management; Vaginal crmzqwydl49/30/2025 9:30 AM EDTOffice Visit [facility] [address] [place] [address] Jennifer Tucker PA Wellness examination (Primary Dx); Encounter for immunization; Overweight; Menorrhagia with irregular cycle; PCOS (polycystic ovarian syndrome); Iron deficiency anemia due to chronic blood loss; Seasonal allergic rhinitis due to pollen; Deviated septum; S/P adenoidectomy; Recurrent major depressive disorder, in full remission ; Chronic idiopathic constipation; Vitamin D cwdqasirmx43/30/2025External Result Encounter NOMS External Department Unsolicited Khushboo Burnett NP 06/28/2025amboo flowsheet [facility] [address] [place] [address] Jennifer Tucker PA 06/28/20252970Xallwm21/24/6785Yzvsnw15/02/2025 10:00 AM EDTOffice Visit [facility] [address] [address] Luba Corral PA Encounter for weight jokzjpmrsw07/02/2025bstract [facility] [address] [place] [phone] Noemi Yoo MD 05/31/2025linisync Result Encounter NOMS External Department Unsolicited Provider, Generic External Data 09/02/2025Bamboo flowsheet [facility] [address] [facility] [address] Luba Corral PA 05/25/2025Telephone [facility] [address] [facility] [phone] Nenita Blum DO from Last 3 Months Immunizations ImmunizationAdministration DatesNext DueInfluenza, [place]bie Lorrie Canine Kidney, subunit, trivalent, injectable, contains dclpkaxrbjst99/30/2025 Family History Medical HistoryRelationNameCommentsSeizuresBrother 3DylanPacemakerMaternal GrandfatherThyroid diseaseMaternal GrandmotherAutismOtherMaternal and paternal brothersEpilepsyOtherMaternal brotherThyroid diseaseSisterRelationNameStatus CommentsBrother 1AliveBrother 2AliveBrother 3DylanDaughterAliveFatherAlive Maternal GrandfatherMaternal GrandmotherMotherAliveOtherSisterAliveSonAlive Social History Tobacco UseTypesPacks/DayYears UsedDateSmoking Tobacco: NeverSmokeless Tobacco: Never Tobacco Cessation:Counseling Given: Not Answered Alcohol UseStandard Drinks/WeekCommentsNever0 (1 standard drink = 0.6 oz pure alcohol)Caffeine: occasional vzqrwrnwpM6737 Health LiteracyAnswerDate Recorded How often do you [...] relatives?Once a week06/22/2025How often do you attend druze or scientology services?1 to 4 times per year06/22/2025Do you belong to any clubs or organizations such as druze groups, unions, fraternal or athletic groups, or school groups?No06/22/2025How often do you attend meetings of the clubs or organizations you belong to?Never 06/22/2025re you , , , , never , or living with a partner?Living with aufiabg6806/22/2025UDIT-CAnswerDate RecordedQ1: How often do you have a [...] hard at all06/22/2025PHQ-2AnswerDate Recorded Patient Health Questionnaire-2 Anons317[facility] [place] of Occupational Health - Occupational Stress QuestionnaireAnswerDate RecordedDo you feel stress - tense, restless, nervous, or anxious, or unable to sleep at night because your mind is troubled all the time - these days?Only a itijob0406/22/2025Exercise Vital SignAnswerDate RecordedOn average, how many days [...] steady place to sleep or slept in [facility] (including now)?No 01/28/2024Housing Stability Vital SignAnswerDate RecordedIn the last 12 months, was there a time when you were not able to pay the mortgage or rent on time?No 06/22/2025In the past 12 months, how many times have you moved where you were living?t any time in the past 12 months, were you homeless or living in a senior living (including now)?No06/22/2025CommentsNoSex and Gender InformationValueDate RecordedSex Assigned at BirthNot on fileLegal SexFemale 12/11/2022 6:51 PM EDTGender IdentityNot on fileSexual OrientationNot on file Last Filed Vital Signs Vital SignReadingTime TakenCommentsBlood Kezjprvj617/6010 8:52 AM EDT Ykwbl847006/28/2025 9:30 AM RWLPkyvgjppuqz00.9 ??C (96.7 ??F)02/03/2024 9:02 AM EDTRespiratory Uuet238206/28/2025 9:30 AM EDTOxygen Sizdudcqon34%06/28/2025 9:30 AM EDTInhaled Oxygen Concentration--Nifjlz83.4 kg (164 lb)07/26/2025 8:52 AM EDT Yprjno192.5 cm (5' 2 )06/28/2025 9:30 AM EDTBody Mass Erguu0940/30/2025 9:30 AM EDT Plan of Treatment DateTypeDepartmentCare Team (Latest Contact Info)Vpingcnckou56/02/2025 9:30 AM ESTOffice Visit N[facility] Fern ACOSTA [address] [place] [address] [place] [phone] Luba Corral PA [address] [place], [place] [address] 04/04/2026 10:00 AM EDTOffice Visit [facility] Fern ACOSTA [address] [facility] [address] Luba Corral, PA [address] [place], [place] [address] Health MaintenanceDue DateLast DoneCommentsCOVID-19 Vaccine ( season) /, 03/05/2021Influenza NrycdyfKzbqlzhny37/30/2025, 09/22/2023, 11/05/2005Pneumococcal Vaccine: Pediatrics (0 to 5 Years) and At- Risk Patients (6 to 64 Years)Aged OutNo longer eligible based on patient's age to complete this topic Procedures Procedure NamePriorityDate/TimeAssociated DiagnosisCommentsRECURRENT VAGINITIS (HTRX)Sbgckuq2006/28/2025 11:27 AM EDT US PELVIS W/ FGUFWEQDMVCP72/02/2025 1:20 PM EDT from Last 3 Months Results * (ABNORMAL) RECURRENT VAGINITIS (HTRX) (06/28/2025 11:27 AM EDT)ComponentValue Ref RangeTest MethodAnalysis TimePerformed AtPathologist SignatureATOPOBIUM BSNAREU99.483(A)19.961 - 24.689 ppm06/29/2025 9:19 AM EDTHealthTrackRx at LabPortATOPOBIUM VAGINAEDetected(A)19.961 - 24.689 ppm06/29/2025 9:19 AM EDT [facility] at LabPortBVAB 2,3 (BACTERIAL VAGINOSIS ASSOCIATED BACTERIA 2, 3); MOBILUNCUS SPP21.106(A)19.961 - 24.689 ppm06/29/2025 9:19 AM EDT [facility] at LabPortBVAB 2,3 (BACTERIAL VAGINOSIS ASSOCIATED BACTERIA 2, 3); MOBILUNCUS SPPDetected(A)19.961 - 24.689 ppm06/29/2025 9:19 AM EDT [facility] at LabPortCANDIDA ALBICANS, PARAPSILOSIS, WRPSRAXHBR776.000 - 30.347 ppm06/29/2025 9:19 AM EDTHealthTrackRx at LabPortCANDIDA ALBICANS, PARAPSILOSIS, TROPICALISNot Ymrvbtbe85.000 - 30.347 ppm06/29/2025 9:19 AM EDT [facility] at LabPortCANDIDA KZRFKPWS161.000 - 31.618 ppm06/29/2025 9:19 AM EDTHealthTrackRx at LabPortCANDIDA GLABRATANot Cmeucffh07.000 - 31.618 ppm 06/29/2025 9:19 AM EDTHealthTrackRx at LabPortCANDIDA CUWEQA182.000 - 30.873 ppm06/29/2025 9:19 AM EDTHealthTrackRx at LabPortCANDIDA KRUSEINot Detected 23.000 - 30.873 ppm06/29/2025 9:19 AM EDTHealthTrackRx at LabPortCHLAMYDIA RSQXHPRPHTR804.000 - 31.586 ppm06/29/2025 9:19 AM EDTHealthTrackRx at [facility] CHLAMYDIA TRACHOMATISNot Kpgjwdhr54.000 - 31.586 ppm06/29/2025 9:19 AM EDT [facility] at LabPortGARDNERELLA UXHNFLRUT61.735(A)19.961 - 24.689 ppm 06/29/2025 9:19 AM EDTHealthTrackRx at LabPortGARDNERELLA VAGINALISDetected(A) 19.961 - 24.689 ppm06/29/2025 9:19 AM EDTHealthTrackRx at [facility] HospitalMEGASPHAERA (TYPES 1, 2)019.961 - 24.689 ppm06/29/2025 9:19 AM EDTHealthTrackRx at [facility]Community Hospital MEGASPHAERA (TYPES 1, 2)Not Qbibrfch24.961 - 24.689 ppm06/29/2025 9:19 AM EDT [facility] HospitalNEISSERIA JVJYJEELGKS475.000 - 32.587 ppm06/29/2025 9:19 AM EDTHealthTrackRx at [facility] HospitalNEISSERIA GONORRHOEAENot Erixxkqt33.000 - 32.587 ppm06/29/2025 9:19 AM EDTHealthTrackRx at LabCommunity HospitalTRICHOMONAS VAGINALIS0 23.000 - 31.995 ppm06/29/2025 9:19 AM EDTHealthTrackRx at [facility] HospitalTRICHOMONAS VAGINALISNot Hinqqqqi50.000 - 31.995 ppm06/29/2025 9:19 AM EDTHealthTrackRx at [facility] HospitalMYCOPLASMA COKCYNPWGH922.961 - 24.689 ppm06/29/2025 9:19 AM EDT [facility] HospitalMYCOPLASMA GENITALIUMNot Ijwlosxq56.961 - 24.689 ppm 06/29/2025 9:19 AM EDTHealthTrackRx at [facility] HospitalTET B, TET M26.99(A)23.000 - 27.500 ppm06/29/2025 9:19 AM EDTHealthTrackRx at [facility] HospitalTET B, TET MDetected (A)23.000 - 27.500 ppm06/29/2025 9:19 AM EDTHealthTrackRx at [facility] HospitalSpecimen (Source)Anatomical Location / LateralityCollection Method / VolumeCollection TimeReceived KoeoFtguwc09/30/2025 11:27 AM EDT1 3:11 AM EDT Narrative Authorizing ProviderResult TypeResult StatusKrpama Lex LAB BLOOD ORDERABLESFinal ResultPerforming OrganizationAddressCity/State/ZIP CodePhone Number [facility] [address] [place] [address], [place] [address] * US PELVIS W/ TRANSVAGINAL (05/31/2025 1:20 PM EDT)Anatomical RegionLaterality ModalityOtherSpecimen (Source)Anatomical Location / LateralityCollection Method / VolumeCollection TimeReceived Time05/31/2025 1:20 PM EDT Narrative 05/31/2025 1:23 PM EDT The [facility] ?[address] ? [place] [address] ? Ultrasound Report ? Signed ? Patient: JOSELIN BLACKBURN D ?MR#: [id number] ?? : 2005 ?Acct:[id number] ?? Age/Sex: 19 / F ?ADM Date: 05/31/25 ?? Loc: US ? Attending Dr: Nenita Blum D.O. ? Ordering Physician: Nenita Blum D.O. ?? Date of Service: 05/31/25 ?? Procedure(s): US pelvis w/ transvaginal ?? Accession Number(s): [id number] ? cc: Nenita Blum D.O.; JENNIFER TUCKER ? The [facility] ? [address] ? [place] [address] ? Patient Name: ?? JOSELIN BLACKBURN ? MRN: [facility]:[id number] ? date: 2005 ?Sex: F ?? Assigned Patient Location: US ?? Current Patient Location: US ?? Accession/Order Number: [id number] ?? Exam Date: 05/31/2025 ??09:00 ?Report Date: [...] M.D. ??05/31/2025 1:20 PM ? Dictation Location: [facility] ? Electronically authenticated by: [id number] ??Y ?? Date: 05/31/2025 ??13:20 ? Dictated By: ?Jennifer Buitrago M.D. ? Signed By: ?05/31/25 1323 ? DD/ 1320 ? TD/TT: ? Orthodontic Assistant: Procedure Note Radiology, MD Osvaldo - 05/31/2025 [place] [address] Ultrasound Report Signed Patient: JOSELIN BLACKBURN DMR#: [id number] : 2005Acct:[id number] Age/Sex: 19 / FADM Date: 05/31/25 Loc: US Attending Dr: Nenita Blum D.O. Ordering Physician: Nenita Blum D.O. Date of Service: 05/31/25 Procedure(s): US pelvis w/ transvaginal Accession Number(s): [id number] cc: Nenita Blum D.O.; JENNIFER TUCKER [address] [address] Patient Name: JOSELIN BLACKBURN MRN: [id number] date: 2005 Sex: F Assigned Patient Location: US Current Patient Location: US Accession/Order Number: [id number] Exam Date: 05/31/2025 09:00 Report Date: 05/31/2025 [...] Buitrago M.D. 05/31/2025 1:20 PM Dictation Location: [employer] Electronically authenticated by: [id number] Y Date: 3:20 Dictated By: Jennifer Buitrago M.D. Signed By:05/31/25 1323 DD/ 1320 TD/TT: Orthodontic Assistant: Authorizing ProviderResult TypeResult StatusGeneric External Data Provider CLINISYNC IMAGINGFinal Result from Last 3 Months Insurance MemberSubscriberPlan / Payer (Effective 2017-Present)Name:Joselin Blackburn Relation to Subscriber:ChildName:YOUSUF WISEMAN Date of :1978 Address: [address] [place] [address] Payer ID:Not on file Type:Not on file Address: [place] [id number] Care Teams Team MemberRelationshipSpecialtyStart DateEnd Date Noemi Yoo MD [address] [address] PCP - GeneralFamily Medicine06/24/24 Jennifer Tucker PA [address] [address] Physician AssistantFamily Medicine06/24/24
--- OUTSIDE RECORDS SUMMARY | 2025-08-19 08:51 | XMS_ITS | Clinical Summary ---
Author Organization [facility] Address [id number] [address] [place] [address] Care Team Providers Care Field Artillery Operations Man Name Role Phone Deshawn Caal DO Primary Care Provider [phone] Allergies No known active allergies Medications MedicationSigDispense QuantityRefillsLast FilledStart DateEnd DateStatus exxzzlkn45-gpsr-dopss- 29-1-400 mg combo pack,tablet & cap,DR Take [...] on 12/16/2023 Active Problems ProblemNoted DateDiagnosed DateDeviated unzjml5409/15/2018Other acute sinusitis 10/27/2017S/P yjpuzerersajh67/06/2017Tongue tied06/30/2017Nasal congestion 06/23/2017Allergic /25/2017Adenoid ybfwnjdogdq70/25/2017 Resolved Problems ProblemNoted DateDiagnosed DateResolved DateVasa kzdhta10/ Intrauterine zfbbymupb49 Immunizations ImmunizationAdministration DatesNext DueInfluenza, Injectable, quadrivalent (PF) 09/22/2023Tdap111/24/2022 Family History RelationNameStatusCommentsFatherAliveMotherAlive Social History Tobacco UseTypesPacks/DayYears UsedDateSmoking Tobacco: NeverSmokeless Tobacco: Never Tobacco Cessation:Counseling Given: Not Answered Alcohol UseStandard Drinks/WeekCommentsNo0 (1 standard drink = 0.6 oz pure alcohol)Overall Financial Resource Strain (CARDIA)AnswerDate RecordedHow hard is it for you to pay for the very basics like food, housing, medical care, and heating?Not hard at all12/14/2023HQ-2AnswerDate RecordedTotal Juzgd132 [place] Depression ScaleAnswerDate RecordedEdinburgh Depression Scale Qfzzn782The thought of harming myself has occurred to me.Never12/16/2023Housing InstabilityAnswerDate RecordedAre you worried or concerned that in the next two months you may not have stable housing that you own, rent or stay in as a part of a household?No11/19/2023hildcareAnswerDate RecordedDo problems getting residential child care counselor make it difficult for you to work or study?No12/14/2023EmploymentAnswerDate VztfaymmHsvfbkyrthQqvwmke73/10/2019Hunger ScreeningAnswerDate RecordedWithin the past 12 months we worried whether our food would run out before we got money to buy more.Never True12/16/2023Within the past 12 months the food we bought just didn't last and we didn't have money to get more.Never True12/16/2023urpose - LifeAnswerDate RecordedPurpose and direction in ndxwUleurtz49/10/2021CommentsNoSex and Gender Information ValueDate RecordedSex Assigned at JoygwSxoxwh47/30/2023 5:58 PM ESTLegal Sex Quauny0805/02/2015 2:06 PM EDTGender FbcpsrrqJmbtqi93/30/2023 5:58 PM ESTSexual XtxrfdsmgtaFedkvcuj32/30/2023 5:58 PM EST Last Filed Vital Signs Vital SignReadingTime TakenCommentsBlood Sddiwdpl483/8203/ 1:15 PM EDT Ytmec059811/13/2023 3:00 PM BAOFjvpzdqcsso46.7 ??C (98.1 ??F)11/19/2023 10:31 AM ESTRespiratory Kiab370111/13/2023 3:00 PM ESTOxygen Cyzmjljjwf90%11/11/2023 2:45 PM ESTInhaled Oxygen Concentration--Uvqrgz26.7 kg (164 lb 11.2 oz)12/16/2023 1:15 PM JUBHnpiue461.5 cm (5' 2 )08/28/2023 5:55 PM ESTBody Mass Index30.12 08/28/2023 5:55 PM EST Plan of Treatment Health MaintenanceDue DateLast DoneCommentsPap Smear4Chlamydia Tllopkork35/09/2022, 02/24/2020, 02/13/2020Adult BMI Screening /4Depression Dwgknmuax36/, 12/14/2023Tobacco Epdhxwhcv11/4COVID-19 Vaccine ( season)2025 03/26/2021, 03/05/2021Influenza Dctjkoa43/, 11/05/2005DTaP,Tdap and Td Vaccines (8 - Td or Tdap), 03/28/2020, 04/08/2016, Additional history exists Medical Devices Not on file Procedures Procedure NamePriorityDate/TimeAssociated DiagnosisCommentsCHLAMYDIA/GC BY PCR SADIA YHBDQXTX90/28/2020 7:22 PM EDT from Last 3 Months or Most Recently Relevant to Health Maintenance Results * Chlamydia/GC by PCR Sadia Swab (02/24/2020 7:22 PM EDT)ComponentValueRef Range Test MethodAnalysis TimePerformed AtPathologist SignatureSpecimen sourceCERVIX 02/24/2020 7:23 PM [facility] LABChlamydia DNA PCRNegative Negative^Oynwbece58/29/2020 11:01 AM [facility] LABComment: ? Chlamydia trachomatis not detected by nucleic acid amplification. This does not exclude the possibility of infection because results are dependent on adequate specimen collection. ? Gonorrhea DNA PCRNegativeNegative^Yuxuqlpc98/29/2020 11:01 AM [facility] LABComment: ? Neisseria gonorrhoeae not detected by nucleic acid amplification. This does not exclude the possibility of infection because results are dependent on adequate specimen collection. ? Specimen (Source)Anatomical Location / LateralityCollection Method / Volume Collection TimeReceived TimeSwab (GENS)02/24/2020 7:22 PM EDT02/24/2020 7:22 PM EDT Narrative Authorizing ProviderResult TypeResult StatusCarmen Zen eBnitez MDMICROBIOLOGY - GENERAL ORDERABLESFinal ResultPerforming OrganizationAddressCity/State/ZIP Code Phone Number [facility] [address], [address] [place] [address] from Last 3 Months or Most Recently Relevant to Health Maintenance Insurance MemberSubscriberPlan / Payer (Effective 2017-Present)Name:Joselin Valenzuela Relation to Subscriber:ChildName:GIGI WISEMAN Date of :1975 Address: [address] [place] [address] Payer ID:[id number] (NAIC) Type:Not on file Address: [facility] [id number] [place] [phone] MemberSubscriberPlan / Payer (Effective 2017-Present)Name:Joselin Valenzuela Relation to Subscriber:ChildName:GIGI WISEMAN Date of :1977 Address: [address] [place] [address] Payer ID:[id number] (NAIC) Type:Not on file Address: [address] [place] [phone] Advance Directives * Full Code (Latest Code Status on File) Date ActivatedDate CilsiylrwnfXmudiols48/30/2023 6:14 PM2 6:20 PM * Full Code Date ActivatedDate InactivatedComments02/24/2020 6:30 PM02/25/2020 2:46 PM Care Teams Team MemberRelationshipSpecialtyStart DateEnd Date Deshawn Caal DO PCP - GeneralFamily Medicine06/23/17
--- OUTSIDE RECORDS SUMMARY | 2025-08-19 08:51 | XMS_ITS | Clinical Summary ---
Author Organization [facility] Address [address], [address] [place] [address] Care Team Providers Care Enrollment Coordinator Name Role Phone Noemi Yoo MD Primary Care Provider [phone] Allergies Active AllergyReactionsCriticalityNoted DateCommentsMetforminNausea And Vomiting Low06/28/2025 Medications MedicationSigDispense QuantityRefillsLast FilledStart DateEnd DateStatus vitamin D (CHOLECALCIFEROL) 50 MCG (1999) CAPS capsule Take 50 mcg by mouth daily5Active levonorgestrel (MIRENA) IUD 52 mg 1 each by IntraUTERine route szydjfbjzw92ctive ferrous sulfate (FE TABS 325) 325 (65 [...] chronic blood loss06/24/2024Major depressive disorder, single episode, knylzgkh37/26/2024Menorrhagia with irregular cycle06/24/2024COS (polycystic ovarian syndrome)06/24/2024eviated hqqjhk4809/15/2018Other acute /29/2018S/P rlzshjwszbcyi28/06/2017Tongue tied06/30/2017Allergic fpajruwd11/25/2017Adenoid vxcxojnbffn60/25/2017Nasal sdgbyrrsmo97/25/2017 Encounters DateTypeDepartmentCare GndpKafzvvmjxdq25/28/2025 10:30 AM EDTOffice Visit [address] [place] [address] Pat Murcia APRN - CNP Change in bowel habits (Primary Dx); Constipation, unspecified constipation type07/26/2025Telephone [address] [place] [address] Pat Murcia APRN - CNP Surgery Mlqesayjqn32/09/2025 10:30 AM EDTOffice Visit [address] [place] [address] Pat Murcia APRN - CNP Constipation, unspecified constipation typefrom Last 3 Months Immunizations ImmunizationAdministration DatesNext DueInfluenza Virus Gokswze0409/22/2023TDaP, ADACEL (age 10y-64y), BOOSTRIX (age 10y+), IM, 0.5mL09/23/2023 Social History Tobacco UseTypesPacks/DayYears UsedDateSmoking Tobacco: NeverSmokeless Tobacco: Never Tobacco Cessation:Counseling Given: Not Answered Alcohol UseStandard Drinks/WeekCommentsNot Currently0 (1 standard drink = 0.6 oz pure alcohol)CommentsUnknownSex and Gender InformationValueDate Recorded Sex Assigned at GowpeLzmuvn67/21/2025 11:16 AM EDTLegal RbgJozdmp87/19/2025 3:46 PM EDTGender LaiowmcwOfskhj58/21/2025 11:16 AM EDTSexual OrientationStraight 07/19/2025 11:16 AM EDT Last Filed Vital Signs Vital SignReadingTime TakenCommentsBlood Vclxshxy076/7910 10:58 AM EDT Pkimv028307/26/2025 10:58 AM EDTTemperature--Respiratory Thcj7098 10:47 AM EDTOxygen Prhipcppxz05%06/07/2025 10:47 AM EDTInhaled Oxygen Concentration-- Dognxx56.8 kg (167 lb)07/26/2025 10:58 AM AFSDptvwr568 cm (5' 2.21 )06/07/2025 10:47 AM EDTBody Mass Index30.3409 10:47 AM EDT Plan of Treatment Health MaintenanceDue DateLast DoneCommentsDepression Cizafnmdkd14/13/2015HPV vaccine (2 - 2-dose series)HIV psmumv6308/11/2018Chlamydia/GC aefkfm9608/11/2019Meningococcal B vaccine (1 of 2 - Standard)2019Hepatitis C ufqanx661Pap smear4COVID-19 Vaccine (3 - season) /, 1DTaP/Tdap/Td vaccine (8 - Td or Tdap)09/23/2033 09/23/2023, 03/28/2020, 04/08/2016, Additional history existsHepatitis B vaccine Ktjgfisbs59/04/2005, 2003, 2003Hib fzzrddbEekktypcc65/04/2005, 2003, 2003Pneumococcal 0-49 years VaccineAged Out11/05/2005, 05/14/2005, 2003, Additional history existsNo longer eligible based on patient's age to complete this topicPolio mbsgtgwYeyrfduti26/11/2016, 05/14/2005, 11/30/2004, Additional history existsVaricella vaccineCompleted 04/08/2016, 05/14/2005Meningococcal (ACWY) cjxzvswCsjfurqln50/09/2021, 04/08/2016Flu usmnevsHatygumag18/30/2025, 09/22/2023Hepatitis A vaccineAged Out No longer eligible based on patient's age to complete this topic Insurance Care Teams Team MemberRelationshipSpecialtyStart DateEnd Date Noemi Yoo MD [address] [facility] [address] [place] [address] PCP - GeneralFavtly Medicine06/06/25
--- OUTSIDE RECORDS SUMMARY | 2025-08-19 08:51 | XMS_ITS | Patient Health Record ---
Author Organization [employer] [facility] [employer] es Address [address] [place] [address] Care Team Providers Care Teaching Young Name Role Phone Katerin Chase Unavailable [phone] Reason For Referral No Information Problems Problem Type SNOMED Code ICD Code Onset Dates Problem Status W/U Status Risk Notes Problem Primigravida (020170589) Encount er for supervision of normal first , unspecified trimester (Z34.00) Activeconfirm Plan Of Treatment No Information Insurance Providers Payer Name Payer Address Payer Phone Subscriber Number Group Number Insured Name Patient Relationship to Insured Coverage Start Date Coverage End Date ANTHEM Primary [address] [place] [phone] [id number] REBECA BLACKBURN Self - patient is the insured [address] [address] [place] [address] [id number], [place] - patient is the insured 2015 Medical (General) History Medical History History ICD Code seasonal Surgical History Surgery Date(Month/Year) adenoidectomy 2018
--- OUTSIDE RECORDS SUMMARY | 2025-08-19 08:51 | XMS_ITS | Encounter Summary ---
Author Organization [facility] Address [address], [address] [place] [address] Care Team Providers Care Medical Device Engineer Name Role Phone Noemi Yoo MD Primary Care Provider [phone] Reason for Visit * ReasonOnset DateCommentsSurgery Duydnouaek13/28/2025 Encounter Details DateTypeDepartmentCare Team (Latest Contact Info)Fzspdewhndw98/28/2025Telephone [facility] Part of [address] [address] Pat Murcia, CLINIC CLERK - FUELS ENGINEER [address] [place], [place] [id number] Surgery Scheduling Social History Tobacco UseTypesPacks/DayYears UsedDateSmoking Tobacco: NeverSmokeless Tobacco: NeverAlcohol UseStandard Drinks/WeekCommentsNot Currently0 (1 standard drink = 0.6 oz pure alcohol)CommentsUnknownSex and Gender InformationValueDate RecordedSex Assigned at JooioIvahaz44/21/2025 11:16 AM EDTLegal SexFemale 05/17/2025 3:46 PM EDTGender MwayscyvLwopgb06/21/2025 11:16 AM EDTSexual PyzbmichyxwMlpwztdh25/21/2025 11:16 AM EDTdocumented as of this encounter Plan of Treatment Not on file documented as of this encounter Visit Diagnoses Diagnosis Change in bowel habit documented in this encounter Care Teams Team MemberRelationshipSpecialtyStart DateEnd Date Noemi Yoo MD [address] [facility] [address] [place] [address] PCP - GeneralFamily Medicine06/06/25documented as of this encounter
[2025-08-19 08:56] LABS: Hematocrit 42.6 % (36.0-48.0); Hemoglobin 14.5 g/dL (12.0-16.0); Immature Granulocytes Abs Auto 0.00 10^3/uL (0.00-0.03); Immature Granulocytes Pct Auto 0.0 % (0.0-0.5); Lymphocytes Absolute Auto 1.6 10^3/uL (1.2-3.8); Mean Corpuscular HGB Conc 34.0 g/dL (29.9-35.2); Mean Corpuscular Hemoglobin 30.7 pg (26.7-34.0); Mean Corpuscular Volume 90.3 fL (81.0-99.0); Platelet Count 211 10^3/uL (150-450); Red Blood Count 4.72 10^6/uL (4.20-5.40); White Blood Count 4.8 10^3/uL (4.0-11.0)
--- OUTSIDE RECORDS SUMMARY | 2025-08-19 08:56 | XMS_ITS | CCD ---
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 Name Role Phone Mishel Dimas Unavailable JUDIE MISHEL Mi Primary Care Unavailable Ahmet Moreno Admitting Unavailable Ahmet Moreno Attending Unavailable Ahmet Moreno Attending Unavailable JUDIE, MISHEL A Primary Care Unavailable Ahmet Moreno H Admitting Unavailable Kathyackbari, DO Mishel Primary Care Provider Judie, DO Hess Attending Provider GIANNA FITZGERALD Referring Unavailable BRANIECKI, MISHEL [...] Unavailable BRANIECKI, MISHEL A Primary Care Unavailable JUDIEMISHEL Referring Unavailable JUDIEMISHEL Primary Care Unavailable DO Mishel Dimas Primary Care Provider [phone] MD Shivani Ghosh Attending Provider Mishel Dimas Admitting Unavailable Mishel Dimas Primary Care Unavailable Mishel Dimas Attending Unavailable Shivani Ghosh Admitting Unavailable Shivani Ghosh Attending Unavailable Mishel Dimas Primary Care Unavailable Noemi Yoo MD Primary Care Provider Jennifer Mcneil Unavailable Mishel Dimas MD Primary Care Provider Mishel Dimas DO Primary Care Provider JENNIFER HERRERA Attending Unavailable LUBA CORRAL Attending Unavailable LUBA CORRAL Attending Unavailable LUBA CORRAL Attending Unavailable JENNIFER HERRERA Attending Unavailable MARGARITA BURNETT Attending Unavailable DAVIN BLUM Attending Unavailable Mishel Dimas MD Primary Care Provider Allergies Allergy ClassificationReported Allergen(s)Allergy TypeDate of OnsetReaction(s) Facility (1 source)No Known Medication Allergies; Translations: [No Known Medication Allergies]Propensity to adverse reactions to drug (disorder)[facility] Repository (10 sources)metFORMINDrug [id number] Emergency Center, [place] Work Phone: Medications Current Medications MedicationDrug Class(es)DatesSig (Normalized)Sig (Original)acetaminophen 500 mg oral tablet (11 sources)Start: 83-23-6386fpob 2 tablets by mouth every eight hours acetaminophen (TYLENOL EXTRA STRENGTH) 500 mg tablet Take 2 tablets (1,000 mg total) by mouth every8 (eight) hours. 30 tablet 0 11/13/2023 Rjyswy62 hr buPROPion hydrochloride 300 mg extended release oral tablet (6 sources)Aminoketonetake 1 tablet by mouth every twenty-four hoursbuPROPion HCl ER (XL) 300 MG 1 tablet in the morning Orally Once a day for 90 day(s) Activecholecalciferol 0.05 mg oral capsule (20 sources)Vitamin DStart: 40-11-9818ryla 1 capsule by mouth once daily cholecalciferol (Vitamin D-3) 50 MCG (1999 UT) capsule Indications: Vitamin D deficiency Take 1 capsule (50 mcg) by mouth Daily 90 capsule 3 01/20/2025 Active docusate sodium 100 mg oral capsule (11 sources)Start: 42-95-8990vmnw 1 capsule by mouth in the morning, then take 1 capsule by mouth at bedtimedocusate sodium (COLACE) 100 mg capsule Take 1 capsule (100 mg total) by mouth in the morning and 1capsule (100 mg total) before bedtime. 60 capsule 0 11/13/2023 ActiveEtonogestrel (Nexplanon) 68 mg implant (2 sources)Start: 93-87-0721Tpxfygpyzwio (Nexplanon) 68 mg implant Active SUBDERMAL April 09, 2024 12:00amfamotidine 20 mg oral tablet (3 sources)Histamine-2 Receptor AntagonistFamotidine 20 MG take 1 tablet by mouth once daily for 14 days Oral for 14 Days Activeferrous sulfate 325 mg delayed release oral tablet (20 sources)Start: 24-27-2950gyyu 1 tablet by mouth at mealtimeferrous sulfate (Fe Tabs) 325 (65 Fe) MG EC tablet Indications: Low ferritin Take 1 tablet (325 mg)by mouth in the morning. Take with meals. Do not crush, chew, or split. 30 tablet 2 01/20/2025 ActiveStart: 04-16-2024 End: 30-90-8869xwvc 1 tablet by mouth every other dayFeroSul 325 (65 Fe) MG tablet Take 1 tablet by mouth every other day 04/16/2024 01/18/2025 Discontinued (Other)ibuprofen 800 mg oral tablet (15 sources)Nonsteroidal Anti-inflammatory DrugStart: 21-80-6410ffif 1 tablet by mouth every eight hoursibuprofen (MOTRIN) 800 mg tablet Take 1 tablet (800 mg total) by mouth every 8 (eight) hours. 30 tablet 0 11/13/2023 ActiveStart: 03-28-2020 End: 00-84-7312Qcphjjwui Discontinued 600 MG PO Every 6 hours March 28, 2020 12:00am November 02, 2021 7:03pmdo not exceed 4 doses in a 24 hour period levonorgestrel 0.533627 mg/hr intrauterine system (20 sources)Progestin, Progestin-containing Intrauterine DeviceStart: 06-22-2024 End: 20-80-2318Fkzwenvgvxziec intrauterine device 52 mgoxyCODONE hydrochloride 5 mg oral tablet (3 sources)Opioid AgonistStart: 11-13-2023 End: 52-22-0989qost 1 tablet by mouth every six hours as needed for pain oxyCODONE (ROXICODONE) 5 mg immediate release tablet Indications: Acute post- operative pain Take 1 tablet (5 mg total) by mouth every 6 (six) hours as needed for pain for up to 5 days. Max Daily Amount: 20 mg 20 tablet 0 11/13/2023 11/18/2023 Activephentermine hydrochloride 37.5 mg oral tablet (16 sources)Sympathomimetic Amine AnorecticStart: 05-02-2025 End: 22-00-1131yqpd 1 tablet by mouth before mealtimephentermine (Adipex-P) 37.5 MG tablet Indications: Encounter for weight management Take 1 tablet (37.5 mg) by mouth in the morning. Take before meals. 30 tablet 05/31/2025 Active polyethylene glycol 3350 63751 mg powder for oral solution (8 sources)Osmotic LaxativeStart: 06-07-2025 End: 56-75-0608solhqdwvuyif glycol, PEG, 3350 (Glycolax) 17 GM/SCOOP powder Take 17 g by mouth Daily 06/07/2025 08/02/2025 Xzsnzhnpycloqy26-ysdl-whhfy-jlmqu5 29-1-400 mg combo pack,tablet & DR juli (11 sources)jpvasqhi80-ruel-ggrif-ublvr4 29-1-400 mg combo pack,tablet & capDR Take 1 tablet by mouth. 0 Active Completed/Discontinued Medications MedicationDrug Class(es)DatesSig (Normalized)Sig (Original)cephalexin 500 mg oral capsule (4 sources)Cephalosporin AntibacterialStart: 11-02-2021 End: 82-51-8836vgan 500 mg by mouth three times dailyCephalexin Discontinued 500 MG PO Three times daily 30 10 November 02, 2021 1:00am April 0947:11am etonogestrel 68 mg drug implant (20 sources)Progestin End: 10-55-2484qvajzgusmsle-eluting 68 mg contraceptive implant 1 each by Implant route 1 (one) time 01/18/2025 Discontinued (Other)Nexplanon Jejguk36 hr metFORMIN hydrochloride 500 mg extended release oral tablet (6 sources)BiguanideStart: 03-29-2025 End: 72-45-8089xknj 1 tablet by mouth every twenty-four hours at mealtime metFORMIN XR (Glucophage-XR) 500 MG 24 hr tablet Indications: Well woman exam with routine gynecological exam Take 1 tablet (500 mg) by mouth in the evening. Take with meals Do not crush, chew, or split. 30 tablet 11 03/29/2025 05/02/2025 DiscontinuedNIFEdipine 30 mg osmotic 24 hr extended release oral tablet (4 sources)Dihydropyridine Calcium Channel BlockerStart: 03-25-2020 End: 70-79-2891zrpc 1 tablet by mouth once dailyNifedipine (Procardia Xl) 30 mg Tablet Extended Release 24hr Discontinued 30 MG PO Daily February 12:00am March 28, 2020 1:56pmnorethindrone 0.35 mg oral tablet (3 sources)Start: 01-14-2024 End: 55-12-3332epkk 1 tablet by mouth once daily, then take 1 tablet by mouth once dailynorethindrone (Micronor) 0.35 MG tablet Indications: hemorrhage, unspecified type Take 1tablet (0.35 mg) by mouth Daily Take 1 tablet by mouth daily 28 tablet 11 01/14/2024 06/14/2024 Discontinuedondansetron 4 mg disintegrating oral tablet (4 sources)Serotonin-3 Receptor AntagonistStart: 11-02-2021 End: 29-33-5969mxac 4 mg by mouth three times dailyOndansetron Discontinued 4 MG PO Three times daily 9 November 02, 2021 1:00am April 09, 2024 7:11am Vit 70-Bgnp-Jgqka-Dha ( + Dha) 28 mg iron- 975 mcg-200 mg Combo Pack (4 sources)Start: 02-13-2020 End: 06-58-4909yagz 1 tablet by mouth once dailyPrenatal Vit 06-Tkfg-Wyepp-Dha ( + Dha) 28 mg iron- 975 mcg-200 mg Combo Pack Discontinued 1 TAB PO Daily February 13, 2020 12:00am November 02, 2021 7:03pm Problems Active Problems Problem ClassificationProblemDateDocumented DateEpisodic/ChronicAbdominal pain (2 sources)Right lower quadrant pain; Translations: [Right upper quadrant pain] EpisodicAdministrative/social admission (9 sources)Medication care plan discussed with patient; Translations: [Other specified counseling]16-52-1652VchspphzIrqvpztcnszju and procreative management (3 sources)Subcutaneous contraceptive implant present; Translations: [Encounter for surveillance of implantable subdermal contraceptive]69-22-5532Wzvirwpg Deficiency and other anemia (20 sources)Iron deficiency anemia due to blood loss; Translations: [Iron deficiency anemia secondary to blood loss (chronic)]Onset: ChronicImmunizations and screening for infectious disease (2 sources)Patient encounter status; Translations: [Encounter for immunization] 36-93-8905AbwoddcdFbkknda and fatigue (2 sources)Fatigue; Translations: [Other fatigue]56-77-1598DddgimpgGasnxwdcg disorders (20 sources)Menorrhagia; Translations: [Excessive and frequent menstruation with regular cycle]Onset: 07-31-2021 Resolved: 56-53-5531HmtnhdgYhsq disorders (20 sources)Moderate major depression, single episode; Translations: [Major depressive disorder, single episode, moderate]Onset: 07-31-2021 Resolved: 38-65-8786NwdzjjvZnamosirmqd deficiencies (11 sources)Vitamin D deficiency; Translations: [Vitamin D deficiency, unspecified]Onset: 554499-74-8584VvjkazzBlvgf complications of (4 sources)Obstetric investigative finding; Translations: [Supervision of other high risk pregnancies, unspecified trimester]10-94-3152UvrntkqnBcxda endocrine disorders (20 sources)Polycystic ovary syndrome; Translations: [Polycystic ovarian syndrome]Onset: 829999-38-3510EmrtegsSfobb female genital disorders (2 sources)Vaginal discharge; Translations: [Other specified noninflammatory disorders of vagina]31-44-8307FczacalpIaslz gastrointestinal disorders (11 sources)Chronic idiopathic constipation; Translations: [Chronic idiopathic constipation]Onset: 624837-97-5182AllodgmToage nutritional; endocrine; and metabolic disorders (1 source)Abnormal weight gainEpisodicOther nutritional; endocrine; and metabolic disorders (2 sources)Weight increased; Translations: [Abnormal weight gain]01-18-2025 EpisodicOther nutritional; endocrine; and metabolic disorders (11 sources)Overweight; Translations: [Overweight]Onset: EpisodicOther and delivery including normal (13 sources)Encounter for routine follow-up; Translations: [Intrauterine ]Onset: 02-24-2020 Resolved: 095993-50-3822BqehdsjuKpqcv upper respiratory disease (20 sources)Allergic rhinitis; Translations: [Allergic rhinitis, unspecified] Onset: 766035-89-8489CywtvbrGmbar upper respiratory disease (2 sources)Allergic rhinitis due to pollen; Translations: [Allergic rhinitis due to pollen]83-43-4667HcjrkcgPhqpw upper respiratory infections (7 sources)Chronic sinusitis; Translations: [Chronic sinusitis, unspecified] ChronicResidual codes; unclassified (2 sources)Gestation period, 29 weeks; Translations: [29 weeks gestation of ]64-13-5641LkhrgipdBripkbiq codes; unclassified (2 sources)FH: Thyroid disorder; Translations: [Family history of other endocrine, nutritional and metabolic diseases]30-83-0019ElabxdmmIrizdea (4 sources)Near syncope; Translations: [Syncope and collapse]37-71-1716Gunrmsec Past or Other Problems Problem ClassificationProblemDateDocumented DateEpisodic/ChronicAcute and chronic tonsillitis (20 sources)Hypertrophy of adenoids; Translations: [Hypertrophy of adenoids] Onset: 06-23-2017 Resolved: 198864-94-8902TwavxvrLvbsive dysrhythmias (1 source)Palpitations; Translations: [Palpitations]Onset: 34-76-7487Ndxxqnfn Digestive congenital anomalies (20 sources)Tongue tie; Translations: [Ankyloglossia]Onset: 06-30-2017 Resolved: 721389-73-9153WglazyrZjsmgkuldx during ; abruptio placenta; placenta previa (20 sources)Third trimester bleeding; Translations: [Antepartum hemorrhage, unspecified, third trimester]Onset: 08-28-2023 Resolved: 239482-29-9857NyciidqbNyul disorders (8 sources)Mood disordersOnset: 11-19-2023 Resolved: Other aftercare (1 source)Surgical follow-up; Translations: [Encounter for follow-up examination after completed treatment for conditions other than malignant neoplasm] 74-43-7259LufnzezmFdwbu complications of ; puerperium affecting management of mother (1 source)Maternal care for (suspected) abnormality and damage, unspecified, not applicable or unspecified; Translations: [Maternal care for (suspected) abnormality and damage, unspecified, not applicable or unspecified]Onset: 17-96-6749CxnzvkhfQjpei complications of (20 sources)Complication occurring during ; Translations: [Other specified related conditions, unspecified trimester]Onset: 06-24-2024 Resolved: 133089-52-8105PbspegmxIrkvn complications of (1 source)Supervision of other high risk pregnancies, unspecified trimester; Translations: [Supervision of other high risk pregnancies, unspecified trimester]Onset: 75-91-7449HzluixoiIgysj nervous system disorders (1 source)Other acute postprocedural pain; Translations: [Other acute postprocedural pain]Onset: 32-00-6869DyhlwylfYuokh nutritional; endocrine; and metabolic disorders (20 sources)Obesity; Translations: [Class 1 obesity without serious comorbidity with body mass index (BMI) of 31.0 to 31.9 in adult, unspecified obesity type] Onset: 01-18-2025 Resolved: 715889-43-9516TzcuidzIaefw nutritional; endocrine; and metabolic disorders (1 source)Abnormal weight gain; Translations: [Abnormal weight gain]Onset: 38-58-9634ZmcwhpthOcezo screening for suspected conditions (not mental disorders or infectious disease) (5 sources)Encounter for screening for other metabolic disorders; Translations: [Encounter for screening for cardiovascular disorders]Onset: 95-17-8687Pvkkyeot Other upper respiratory disease (20 sources)Deviated nasal septum; Translations: [Deviated nasal septum]Onset: 596957-67-2247AjqkhpuiFmcjk upper respiratory disease (11 sources)Nasal congestion; Translations: [Nasal congestion]Onset: 06-23-2017 08-74-4403EgvgixnzLvgph upper respiratory infections (20 sources)Acute pharyngitis, unspecified; Translations: [Acute pharyngitis] Onset: 10-27-2017 Resolved: 789261-46-9853GbhhtkziIvkfxhbh codes; unclassified (20 sources)History of adenoidectomy; Translations: [Acquired absence of other organs]Onset: 913967-97-1318IzeajomqFcizcomyxck; intervertebral disc disorders; other back problems (10 sources)Disorder of left sciatic nerve; Translations: [Sciatica, left side] Onset: 06-28-2025 Resolved: 881816-84-9073AxkdcvbtHwngesmpv cord complication (14 sources)Labor and delivery complicated by vasa previa, fetus 1; Translations: [Labor and delivery complicated by vasa previa, not applicable or unspecified]Onset: 08-28-2023 Resolved: 291654-05-8473JjujohqwXeircyk tract infections (20 sources)Urinary tract infectious disease; Translations: [Urinary tract infection, site not specified]Onset: 06-24-2024 Resolved: 917445-73-0136Padizyyx Results Test NameValueInterpretationReference RangeFacilityRECURRENT VAGINITIS (HTRX)on 50-06-4794DXQEWZXQI KQCUVJH53.483AbnormalNOMS HealthcareATOPOBIUM VAGINAE DetectedAbnormalNOMS HealthcareBVAB 2,3 (BACTERIAL VAGINOSIS ASSOCIATED BACTERIA 2, 3); MOBILUNCUS SPP21.106AbnormalNOMS HealthcareBVAB 2,3 (BACTERIAL VAGINOSIS ASSOCIATED BACTERIA 2, 3); MOBILUNCUS SPPDetectedAbnormalNOMS HealthcareCANDIDA ALBICANS, PARAPSILOSIS, VDBDGPZXNC7NVEZ HealthcareCANDIDA ALBICANS, PARAPSILOSIS, TROPICALISNot detectedNOMS HealthcareCANDIDA AYDJOWNP6JLHA HealthcareCANDIDA GLABRATANot detectedNOMS HealthcareCANDIDA LLHCWF8RQAU HealthcareCANDIDA KRUSEINot detectedNOMS HealthcareCHLAMYDIA GFMGDPTCAXO8KURS HealthcareCHLAMYDIA TRACHOMATISNot detectedNOMS HealthcareGARDNERELLA VAGINALIS 23.735AbnormalNOMS HealthcareGARDNERELLA VAGINALISDetectedAbnormalNOMS HealthcareInterpretation and review of laboratory resultsAbnormalNOMS Healthcare MEGASPHAERA (TYPES 1, 2)0NOMS HealthcareMEGASPHAERA (TYPES 1, 2)Not detectedNOMS HealthcareMYCOPLASMA OIPTELVDHV5HZVJ HealthcareMYCOPLASMA GENITALIUMNot detected NOMS HealthcareNEISSERIA XBQVAQNDZGJ5BCKN HealthcareNEISSERIA GONORRHOEAENot detectedNOMS HealthcareTET B, TET M26.99AbnormalNOMS HealthcareTET B, TET M DetectedAbnormalNOMS HealthcareTRICHOMONAS RWVTDMUQG4NOCL HealthcareTRICHOMONAS VAGINALISNot detectedNOMS HealthcareNOMS HealthcareUS PELVIS W/ TRANSVAGINALon 39-01-5815VwvWilliamson, [place] [address] Ultrasound Report Signed Patient: JOSELIN VALENZUELA MR#: [id number] : 2005 Acct:[id number] Age/Sex: 19 / F ADM Date: 05/31/25 Loc: US Attending Dr: Davin Blum D.O. Ordering Physician: Davin Blum D.O. Date of Service: 05/31/25 Procedure(s): US pelvis w/ transvaginal Accession Number(s): [id number] cc: Davin Blum D.O.; JENNIFER HERRERA [place] [id number] Patient Name: JOSELIN VALENZUELA MRN: [id number] date: 2005 Sex: F Assigned Patient Location: US Current Patient Location: US Accession/Order Number: [id number] Exam Date: 05/31/2025 09:00 Report Date: 05/31/2025 13:20 At the request of: DAVIN BLUM DO Procedure: US pelvis w/ transvaginal ULTRASOUND PELVIS WITH TRANSVAGINAL COMPARISON: 06/18/2024 CLINICAL DATA: Vaginal discharge and cramping. IUD for the past year. Real-time ultrasound evaluation the pelvis was performed utilizing both a transabdominal and transvaginal approach. TRANSABDOMINAL: The urinary bladder is not fully distended. Estimated uterine size is approximately 7.9 x 3.9 x 6.7 cm. The endometrial lining is estimated at 4 - 5 mm. No focal myometrial abnormalities are seen. The left ovary is identified however the right is not discretely seen. TRANSVAGINAL: Transvaginal imaging was performed to better evaluate the uterus and adnexa. By this approach, there are no focal myometrial abnormalities. The endometrial lining measures approximately 3 mm in size. The IUD appears to be low-lying positioned at the lower uterine segment/cervix. Both ovaries are identified by this approach and there are multiple subcentimeter follicles bilaterally. The right ovary measures 3.8 x 1.9 x 2.4 cm. The left ovary measures 3.4 x 2.7 x 3.1 cm. No dominant adnexal cysts are seen. There is documentation of duplex and color Doppler blood flow. The resistive index on the right is 0.5 and on the left 0.4. No free fluid is noted. US/US pelvis w/ transvaginal IMPRESSION: ABNORMALLY LOW POSITION OF IUD. NO DOMINANT ADNEXAL CYSTS. Impression dictated by: Jennifer Buitrago M.D. 05/31/2025 1:20 PM Dictation Location: [place] [address] Electronically authenticated by: [id number] Y Date: 05/31/2025 13:20 Dictated By: Jennifer Buitrago M.D. Signed By: 05/31/25 1323 DD/ 1320 TD/TT: Research Assistant Member:TBHRadiology, Radiologist, - 05/31/[address] [address] Ultrasound Report Signed Patient: JOSELIN VALENZUELA MR#: [id number] : 2005 Acct:[id number] Age/Sex: 19 / F ADM Date: 05/31/25 Loc: US Attending Dr: Davin Blum D.O. Ordering Physician: Dvain Blum D.O. Date of Service: 05/31/25 Procedure(s): US pelvis w/ transvaginal Accession Number(s): [id number] cc: Davin Blum D.O.; JENNIFER HERRERA [address] [address] Patient Name: JOSELIN VALENZUELA MRN: [facility]:[id number] date: 2005 Sex: F Assigned Patient Location: US Current Patient Location: US Accession/Order Number: [id number] Exam Date: 05/31/2025 09:00 Report Date: 05/31/2025 13:20 At the request of: DAVIN BLUM DO Procedure: US pelvis w/ transvaginal ULTRASOUND PELVIS WITH TRANSVAGINAL COMPARISON: 06/18/2024 CLINICAL DATA: Vaginal discharge and cramping. IUD for the past year. Real-time ultrasound evaluation the pelvis was performed utilizing both a transabdominal and transvaginal approach. TRANSABDOMINAL: The urinary bladder is not fully distended. Estimated uterine size is approximately 7.9 x 3.9 x 6.7 cm. The endometrial lining is estimated at 4 - 5 mm. No focal myometrial abnormalities are seen. The left ovary is identified however the right is not discretely seen. TRANSVAGINAL: Transvaginal imaging was performed to better evaluate the uterus and adnexa. By this approach, there are no focal myometrial abnormalities. The endometrial lining measures approximately 3 mm in size. The IUD appears to be low-lying positioned at the lower uterine segment/cervix. Both ovaries are identified by this approach and there are multiple subcentimeter follicles bilaterally. The right ovary measures 3.8 x 1.9 x 2.4 cm. The left ovary measures 3.4 x 2.7 x 3.1 cm. No dominant adnexal cysts are seen. There is documentation of duplex and color Doppler blood flow. The resistive index on the right is 0.5 and on the left 0.4. No free fluid is noted. US/US pelvis w/ transvaginal IMPRESSION: ABNORMALLY LOW POSITION OF IUD. NO DOMINANT ADNEXAL CYSTS. Impression dictated by: Jennifer Buitrago M.D. 05/31/2025 1:20 PM Dictation Location: [place] [address] Electronically authenticated by: [id number] Y Date: 05/31/2025 13:20 Dictated By: Jennifer Buitrago M.D. Signed By: 05/31/251322 DD/ 132 TD/TT: Research Assistant Member: SHERINE HealthcareRadiology Study observation (narrative)NOMS HealthcareUS PELVIS W/ TRANSVAGINALOrdered By: Radiologist Radiology on 01-90-3685[facility] Work Phone: ccf CMP (CMP) (FOR REMOTE [facility] USE)on 94-31-8129Oaqqxau [Mass/Vol]4 g/dL3.4 - 5.0 g/dLNOMS HealthcareALBUMIN GLOBULIN RATIO1.1NOMS HealthcareALP [Catalytic activity/Vol]76 U/L46 - 116 U/LNOMS HealthcareALT [Catalytic activity/Vol]27 U/L14 - 59 U/LNOMS HealthcareAnion gap [Moles/Vol] 12.6 mmol/LNOMS HealthcareAST [Catalytic activity/Vol]19 U/L15 - 37 U/LNOMS HealthcareBilirubin [Mass/Vol]0.5 mg/dL0.2 - 1.0 mg/dLNOMS HealthcareCalcium [Mass/Vol]9.3 mg/dL8.5 - 10.1 mg/dLNOMS HealthcareChloride [Moles/Vol]103 mmol/L 98 - 107 mmol/LNOMS HealthcareCO2 [Moles/Vol]28.3 mmol/L21.0 - 32.0 mmol/LNOMS HealthcareCreatinine [Mass/Vol]0.63 mg/dL0.55 - 1.02 mg/dLNOMS Healthcare GFR/1.73 sq M.predicted CKD-EPI (S/P/Bld) [Vol rate/Area]>60>=60 mL/min/1.73m 2 NOMS HealthcareGlobulin (S) [Mass/Vol]3.5 g/dLNOMS HealthcareGlucose [Mass/Vol] 112 mg/zORvaz55 - 106 mg/dLNOMS HealthcareInterpretation and review of laboratory resultsAbnormalNOMS HealthcarePotassium [Moles/Vol]3.9 mmol/L3.5 - 5.1 mmol/LNOMS HealthcareProtein [Mass/Vol]7.5 g/dL6.4 - 8.2 g/dLNOMS Healthcare Sodium [Moles/Vol]140 mmol/L136 - 145 mmol/LNOMS HealthcareTBH EGFR-NON AF DJIBOUTIAN>60>=60 mL/min/1.73m 2NOMS HealthcareUrea nitrogen [Mass/Vol]13 mg/dL7.0 - 18.0 mg/dLNOMS HealthcareUrea nitrogen/Creatinine [Mass ratio]20.6 mg/mgNOMS [facility] HospitalCLINISYNPelham Medical CenterCCF FERRITINon 76-72-0808Kjwtbvyh [Mass/Vol]35 ng/mL8.0 - 252.0 ng/mLNOMS [facility] HospitalCLHannibal Regional HospitalCBC (H/H, RBC, INDICES, WBC, PLT)on 40-16-4719Wokxjaqnoxb distribution width (RBC) [Ratio]13.7 %Vztvjx99.0-15.0Quest DiagnosticsComment on above:Performed By: #### [id number], 561, 17125 #### [facility] [place] [address] Vegetable Handler: Tavo Barnes MD #### 1759 #### [facility] Vegetable Handler: Lu Silva FlatiHematocrit (Bld) [Volume fraction]44.8 %Normal 35.0-45.0Quest DiagnosticsComment on above:Performed By: #### 84721, 561, 96982 #### [facility] [address], [address] [place], [place] [id number] Vegetable Handler: Tavo Barnes MD #### 1759 #### [facility] [address] [place] [phone] Vegetable Handler: Lu Silva FlatiHemoglobin (Bld) [Mass/Vol]14.8 g/dLNormal 11.7-15.5Quest DiagnosticsComment on above:Performed By: #### 61673, 561, 76102 #### [facility] [address], [address] [place] [address] Vegetable Handler: Tavo Barnes MD #### 1759 #### [facility] [address] [place] [address] Vegetable Handler: Lu RuelasCH (RBC) [Entitic mass]29.4 tfDqaltg63.0-33.0 Quest DiagnosticsComment on above:Performed By: #### 94086, 561, 42393 #### [facility] [address], [address] [place] [address] Vegetable Handler: Tavo Barnes MD #### 1759 #### [facility] [address] [place] [address] Vegetable Handler: Lu RuelasCHC (RBC) [Mass/Vol]33.0 g/fSNpgssl55.0-36.0 Quest DiagnosticsComment on above:Result Comment: For adults, a slight decrease in the calculated MCHC value (in the range of 30 to 32 g/dL) is most likely not clinically significant; however, it should be interpreted with caution in correlation with other red cell parameters and the patient's clinical condition.Performed By: #### 29292, 5615, 93844 #### [facility] [place] [address] Vegetable Handler: Tavo Barnes MD #### 1759 #### [facility] [address] [place] [address] Vegetable Handler: Lu RuelasCV (RBC) [Entitic vol]88.9 uWQjqxoi42.0-100.0 [facility] DiagnosticsComment on above:Performed By: #### 40520, 5615, 27658 #### [facility] [place] [address] Vegetable Handler: Tavo Barnes MD #### 1759 #### [facility] [address] [place], [place] [id number] Vegetable Handler: Lu HaroiPlatelet mean volume (Bld) [Entitic vol]10.9 fLNormal7.5-12.5Quest DiagnosticsComment on above:Performed By: #### 97817, 5616, 75095 #### [facility] [address], [address] [place] [address] Vegetable Handler: Tavo Barnes MD #### 1759 #### [facility] [address] [place] [address] Vegetable Handler: Lu HaroiPlatelets (Bld) [#/Vol]215 10*3/uLNormal 140-400Quest DiagnosticsComment on above:Performed By: #### 25931, 5616, 94899 #### [facility] [address], [address] [place] [address] Vegetable Handler: Tavo Barnes MD #### 1759 #### [place] [address] Vegetable Handler: Lu HaroiRBC (Bld) [#/Vol]5.04 10*6/uLNormal3.80-5.10 [facility]osticsComment on above:Performed By: #### 07356, 5616, 11644 #### [facility] [address], [address] [place] [address] Vegetable Handler: Tavo Barnes MD #### 1759 #### [place] [address] Vegetable Handler: Lu HaroiWBC (Bld) [#/Vol]4.8 10*3/uLNormal3.8-10.8 [facility] DiagnosticsComment on above:Performed By: #### 75968, 5616, 09122 #### [facility] [address], [address] [place], [place] [address] Vegetable Handler: Tavo Barnes MD #### 1759 #### [facility] [address] [place] [address] Vegetable Handler: Lu HaroiIRON, TIBC AND FERRITIN PANELon 01-20-2025% CVVNZCSUGO01 % (calc)Zveuat94-84Fzjxs DiagnosticsComment on above:Order Comment: FASTING:NO FASTING: NOPerformed By: #### 03329, 5616, 87891 #### [facility] [address], [address] [place], [place] [address] Vegetable Handler: Tavo Barnes MD #### 1759 #### [facility] [address] [place] [address] Vegetable Handler: Lu HaroiFerritin [Mass/Vol]14 ng/xNHmn82-123Xpiup DiagnosticsComment on above:Order Comment: FASTING:NO FASTING: NOPerformed By: #### 77314, 5616, 25890 #### [facility] [address], [address] [address] Vegetable Handler: Tavo Barnes MD #### 1759 #### [facility] [address] [place] [address] Vegetable Handler: Lu LindquistRON BINDING YPDFEKSR150 mcg/dL (calc)Normal 250-450Quest DiagnosticsComment on above:Order Comment: FASTING:NO FASTING: NOPerformed By: #### 78933, 5616, 77615 #### [facility] [address], [address] [place] [address] Vegetable Handler: Tavo Barens MD #### 1759 #### [facility] [address] [place] [address] Vegetable Handler: Lu HaroiIRON, OAUTT938 mcg/aVZqpynm56-936Lubvd DiagnosticsComment on above:Order Comment: FASTING:NO FASTING: NOPerformed By: #### 78657, 561, 75662 #### [facility] [address], [address] [place], [place] [address] Vegetable Handler: Tavo Barnes MD #### 1759 #### [facility] [address] [place] [address] Vegetable Handler: Lu HaroiTSH W/REFLEX TO FT4on 33-89-8526WCM W/REFLEX TO FT41.04 mIU/LNormalQuest DiagnosticsComment on above:Result Comment: Reference Range > or = 20 Years 0.40-4.50 Ranges First trimester 0.26-2.66 Second trimester 0.55-2.73 Third trimester 0.43-2.91Performed By: #### 13300, 5616, 08349 #### [facility] [address] [facility], [address] [place] [address] Vegetable Handler: Tavo Barnes MD #### 1759 #### [facility] [address] [place] [address] Vegetable Handler: Lu HaroiVITAMIN D,25-OH,TOTAL,IAon 47-00-4116PJXPAYA D,25-OH,TOTAL,IA27 ng/bPQus73-797Ldjho DiagnosticsComment on above:Result Comment: Vitamin D Status 25-OH Vitamin D: Deficiency: <20 ng/mL Insufficiency: 20 - 29 ng/mL Optimal: > or = 30 ng/mL For 25-OH Vitamin D testing on patients on D2-supplementation and patients for whom quantitation of D2 and D3 fractions is required, the QuestAssureD(TM) 25-OH VIT D, (D2,D3), LC/MS/MS is recommended: order code 86136 (patients >2yrs). See Note 1 Note 1 For additional information, please refer to http://education.Pixable.[employer]/faq/DZQ777 (This link is being provided for informational/ educational purposes only.)Performed By: #### 92653, 5616, 85473 #### [facility] [address] [facility], [address] [place] [address] Vegetable Handler: Tavo Barnes MD #### 1759 #### [facility] [address] [place] [address] Vegetable Handler: Lu HaroiALL DEHYDROEPIANDROSTERONEon 76-42-6889UPTH, FSICK277 ng/dL31 - 701 ng/dLBarton County Memorial HospitalComment on above:This test was developed and its performance characteristics determined by [facility]. It has not been cleared or approved by the Food and Drug Administration. Performed at: [address] [id number] Surgical Territory Manager: Ede Cortez MD, Phone: [phone] [facility] DHEA SULFATEon 02-57-0992RLCV-YJMOBQY347.0 ug/dL 110.0 - 431.7 ug/dLNOMN HealthcareComment on above:Performed at: [address] [id number] Surgical Territory Manager: Marbin Tracey PhD, Phone: [phone] [facility] PittsburghInsertion/Removal of Contraceptive Capsuleon 07-08-2024 Margie Santacruz LPN 07/08/2024 2:44 [...] sterile fashion: yes Procedure: Procedure: Removal Left/right: RightFormerly [facility] Health CareHCG ( test) Ql (U)on 56-96-3735Zcxrymgymzuvdi and review of laboratory resultsNormalBarton County Memorial Hospital Preg Test, UrNegativeNOAscension All Saints HospitalIUD Insertionon 06-22-2024 Jennifer Irving LPN 06/23/2024 9:54 AM IUD Insertion Date/Time: 06/22/2024 2:06 PM Performed by: Davin Blum DO Authorized by: Davin Blum DO Consent: Consent obtained: Written Consent given by: Patient Procedure risks and benefits discussed: yes Patient questions answered: yes Patient agrees, verbalizes understanding, and wants to proceed: yes Educational handouts given: yes Instructions and paperwork completed: yes [place] protocol: Patient states understanding of procedure being [...] office in 4 weeks for a string check.[facility] PELVIS W/ TRANSVAGINALon 55-21-1239[place] [address] Ultrasound Report Signed Patient: JOSELIN VALENZUELA MR#: [id number] : 2005 Acct:[id number] Age/Sex: 18 / F ADM Date: 06/18/24 Loc: US Attending Dr: Davin Blum D.O. Ordering Physician: Davin Blum D.O. Date of Service: 06/18/24 Procedure(s): US pelvis w/ transvaginal Accession Number(s): [id number] cc: Davin Blum D.O.; Physician,Non-Staff M.DNancy The [address] [address] Patient Name: JOSELIN VALENZUELA MRN: [id number] date: 2005 Sex: F Assigned Patient Location: US Current Patient Location: US Accession/Order Number: [id number] Exam Date: 06/18/2024 10:05 Report Date: 06/20/2024 20:49 At the request of: DAVIN BLUM Procedure: US pelvis w/ transvaginal PROCEDURE: [...] No pathology demonstrated. Electronically authenticated by: HERMELINDA CARTER Date: 06/20/2024 20:49 Dictated By: Hermelinda Carter M.D. Signed By: 06/20/242050 DD/ 48 TD/TT: Research Assistant Member:MARCINadiology, Radiologist, - 06/20/2024 [place] [address] Ultrasound Report Signed Patient: JOSELIN VALENZUELA MR#: [id number] : 2005 Acct:[id number] Age/Sex: 18 / F ADM Date: 06/18/24 Loc: US Attending Dr: Davin Blum D.O. Ordering Physician: Davin Blum D.O. Date of Service: 06/18/24 Procedure(s): US pelvis w/ transvaginal Accession Number(s): [id number] cc: Davin Blum D.O.; Physician,Non-Staff MDannielle [place] [id number] Patient Name: JOSELIN VALENZUELA MRN: [id number] date: 2005 Sex: F Assigned Patient Location: US Current Patient Location: US Accession/Order Number: [id number] Exam Date: 06/18/2024 10:05 Report Date: 06/20/2024 20:49 At the request of: DAVIN BLUM Procedure: US pelvis w/ transvaginal PROCEDURE: [...] No pathology demonstrated. Electronically authenticated by: HERMELINDA CARTER Date: 06/20/2024 20:49 Dictated By: Hermelinda Carter M.D. Signed By: 06/20/242050 DD/ 48 TD/TT: Research Assistant Member: SHERINE [facility] HospitalRadiology Study observation (narrative)[facility] Memorial HospitalUS PELVIS W/ TRANSVAGINALOrdered By: Radiologist Radiology on 78-62-8529TQCCBarton County Memorial Hospital Work Phone: all CBC WITH AUTO DIFFon 99-76-3269PKPVOSFWA ABSOLUTE AUTO0.0NOMS [facility] HospitalBasophils/100 WBC (Bld)0.5 %0.2 - 2.0 %[facility] Eosinophils/100 WBC (Bld)3.9 %0.9 - 7.0 %[facility] County Memorial HospitalErythrocyte distribution width (RBC) [Ratio]12.7 %11.0 - 15.0 %[facility] Memorial HospitalHematocrit (Bld) [Volume fraction]42.9 %36.0 - 48.0 %[facility] Memorial HospitalHemoglobin (Bld) [Mass/Vol]14.2 g/dL 12.0 - 16.0 g/dLBarton County Memorial HospitalIMMATURE GRANULOCYTES ABS AUTO0.01NOMS [facility] Immature granulocytes/100 WBC (Bld)0.2 %0.0 - 0.5 %[facility] HospitalInterpretation and review of laboratory resultsAbnormalNOSelect Specialty HospitalLYMPHOCYTES ABSOLUTE AUTO1.6NOMS [facility] HospitalLymphocytes/100 WBC (Bld)38.3 %20.5 - 60.0 %[facility] LouisH (RBC) [Entitic mass]29.5 pg26.7 - 34.[address] LouisHC (RBC) [Mass/Vol]33.1 g/dL29.9 - 35.2 g/dLBarton County Memorial HospitalMCV (RBC) [Entitic vol]89.0 fL 81.0 - 99.0 fLBarton County Memorial HospitalMONOCYTES ABSOLUTE AUTO0.2LowNOMS [facility] Monocytes/100 WBC (Bld)4.4 %1.7 - 12.0 %[facility] Memorial HospitalNEUTROPHILS ABSOLUTE AUTO 2.2NOMS HealthcareNeutrophils/100 WBC (Bld)52.7 %43.0 - 75.0 %[facility] Platelet mean volume (Bld) [Entitic vol]11.1 fL9.5 - 13.5 fLNOHCA Midwest Division EO #0.2NOMS HealthcareTBH OON825SDTS HealthcareTBH RBC4.82NOMS HealthcareTB WBC 4.1NOMS HealthcareCLINISYNCNOMS HealthcareNo Panel InformationOrdered By: Livier Howe on 93-68-3627Aphzk Strep (POC)[facility] HospitalUS PELVIS W/ TRANSVAGINALon 80-39-0504LhuWilliams[place] [address] Ultrasound Report Signed Patient: JOSELIN VALENZUELA MR#: [id number] : 2005 Acct:[id number] Age/Sex: 18 / F ADM Date: 01/22/24 Loc: NOMS Attending Dr: Davin Blum D.O. Ordering Physician: Davin Blum D.O. Date of Service: 01/22/24 Procedure(s): US pelvis w/ transvaginal Accession Number(s): [id number] cc: Davin Blum D.O.; Physician,Non-Staff M.DNancy [place] [id number] Patient Name: JOSELIN VALENZUELA MRN: [id number] date: 2005 Sex: F Assigned Patient Location: [facility] Current Patient Location: [facility] Accession/Order Number: [id number] Exam Date: 01/22/2024 08:24 Report Date: 01/22/2024 09:26 At the request of: DAVIN BLUM Procedure: US pelvis w/ transvaginal EXAM: [...] of the pelvis. Electronically authenticated by: DEIRDRE ROSENBAUM Date: 01/22/2024 09:26 Dictated By: Deirdre Rosenbaum M.D. Signed By: 01/22/24927 DD/ 5 TD/TT: Research Assistant Member:MARCINadiologesequiel, Radiologist, - 01/22/2024 [place] [address] Ultrasound Report Signed Patient: JOSELIN VALENZUELA MR#: [id number] : 2005 Acct:[id number] Age/Sex: 18 / F ADM Date: 01/22/24 Loc: NOMS Attending Dr: Davin Blum D.O. Ordering Physician: Davin Blum D.O. Date of Service: 01/22/24 Procedure(s): US pelvis w/ transvaginal Accession Number(s): [id number] cc: Davin Blum D.O.; Physician,Non-Staff Marissa The [place] [phone] Patient Name: JOSELIN VALENZUELA MRN: [id number] date: 2005 Sex: F Assigned Patient Location: [facility] Current Patient Location: [facility] Accession/Order Number: [id number] Exam Date: 01/22/2024 08:24 Report Date: 01/22/2024 09:26 At the request of: DAVIN BLUM Procedure: US pelvis w/ transvaginal EXAM: [...] of the pelvis. Electronically authenticated by: DEIRDRE ROSENBAUM Date: 01/22/2024 09:26 Dictated By: Deirdre Rosenbaum M.D. Signed By: 01/22/24927 DD/ 5 TD/TT: Research Assistant Member: SHERINE ArevaloRadiology Study observation (narrative)NOMS HealthcareUS PELVIS W/ TRANSVAGINALOrdered By: Radiologist Radiology on 86-39-1837OOLH [employer] Work Phone: cbc AND AUTO DIFFon 63-53-8059FKTLURHS BASOPHIL0.0 X10E9/LNormal0.0-0.2[facility] Medical CenterComment on above:Performed By: #### 95380-5 #### [facility] ([id number]) [address], [address] [place], [place] [address]BITSLXOA NEUTROPHIL7.1 X10E9/LHigh1.5-6.6ProPromedica Bay Park Hospitalca Ohio[facility] Grant Medical CenterComment on above:Performed By: #### 25537-2 #### [facility] ([id number]) [address], [address] [place], [place] [address]Oydurnebz/100 WBC (Bld)0.1 %NormalMemorial Hospital Comment on above:Performed By: #### 97919-8 #### [facility] ([id number]) [address], [address] [place], [place] [address]Iqhpaywxisu (Bld) [#/Vol]0.1 10*3/uLNormal0.0-0.4ProPromedica Defiance Regional HospitalComment on above:Performed By: #### 45728-5 #### [facility] ([id number]) [address], [address] [place], [place] [address]Pryurllfckj/100 WBC (Bld)0.6 %NormalMemorial Hospital Comment on above:Performed By: #### 20687-1 #### [facility] ([id number]) [address], [address] [place] [address]Roxrlmnukbq distribution width (RBC) [Ratio]15.5 %High11.5-15.0 [facility]cott HospitalComment on above:Performed By: #### 80758-3 #### [facility] ([id number]) [address], [address] [place], [place] [address]Rsrwzfugjk (Bld) [Volume fraction]31.2 %Qle19-29RomLmyjer Prescott HospitalComment on above:Performed By: #### 72708-9 #### [facility] ([id number]) [address], [address] [place], [place] [address]Lwpxzfayxe (Bld) [Mass/Vol]10.9 g/dLLow11.7-15.5[facility] HospitalComment on above:Performed By: #### 18448-7 #### [facility] ([id number]) [address], [address] [place] [address]Kotxfqgmyfb (Bld) [#/Vol]1.7 10*3/uLNormal1.0-3.5ProMedKettering Health Hamilton HospitalComment on above:Performed By: #### 33010-1 #### [facility] ([id number]) [address], [address] [place] [address]Xndbqzvgret/100 WBC (Bld)18.3 %NormalProCleveland Clinic Fairview Hospital Hospital Comment on above:Performed By: #### 51728-3 #### [facility] ([id number]) [address], [address] [place], [place] [address]FAZ (RBC) [Entitic mass]31.0 gvEdploh01-14KeqVqbata Prescott HospitalComment on above:Performed By: #### 13245-1 #### [facility] ([id number]) [address], [address] [place] [address]TPVQ (RBC) [Mass/Vol]35.0 g/pHPueqdl28-33UmfSjnwvt [facility] HospitalComment on above:Performed By: #### 86455-9 #### [facility] ([id number]) [address], [address] [place], [place] [address]WUO (RBC) [Entitic vol]89 oEXtsdie91-256NrqBqqzak [facility]cott HospitalComment on above:Performed By: #### 34111-3 #### [facility] ([id number]) [address], [address] [place], [place] [address]Sdfjtragi (Bld) [#/Vol]0.6 10*3/uLNormal0-0.9[facility] Amin HospitalComment on above:Performed By: #### 45621-5 #### [facility] ([id number]) [address], [address] [place], [place] [address]Xzavsmrll/100 WBC (Bld)6.8 %NormalMemorial Hospital Comment on above:Performed By: #### 10672-0 #### [facility] ([id number]) [address], [address] [place], [place] [address]Mlvqsukkozs/100 WBC (Bld)74.2 %NormalMemorial Hospital Comment on above:Performed By: #### 54031-2 #### [facility] ([id number]) [address], [address] [place], [place] [address]Dfxrqbnh mean volume (Bld) [Entitic vol]8.9 fLNormal7-12 [facility] Amin HospitalComment on above:Performed By: #### 94212-4 #### [facility] ([id number]) [address], [address] [place], [place] [address]Sydzwospz (Bld) [#/Vol]138 10*3/fVOpc750-335VmaUrwzpk Amin HospitalComment on above:Performed By: #### 47399-8 #### [facility] ([id number]) [address], [address] [place], [place] [address]FOC COUNT3.52 X10E12/LLow3.80-5.20[facility] Comment on above:Performed By: #### 83302-9 #### [facility] ([id number]) [address], [address] [place], [place] [address]LDK (Bld) [#/Vol]9.5 10*3/uLNormal4.0-11.0ProPromedica Bay Park Hospitalca Prescott HospitalComment on above:Performed By: #### 55245-3 #### [facility] ([id number]) [address], [address] [place], [place] [address]TRB AND AUTO DIFFon 73-09-9957SAQZRFBB BASOPHIL0.0 X10E9/LNormal 0.0-0.2[facility] HospitalComment on above:Performed By: #### 26027-6 #### [facility] ([id number]) [address], [address] [place], [place] [address]VBLDEMEY NEUTROPHIL3.6 X10E9/LNormal1.5-6.6ProCleveland Clinic Fairview Hospital HospitalComment on above:Performed By: #### 07405-3 #### [facility] ([id number]) [address], [address] [place], [place] [address]Cfihnjzib/100 WBC (Bld)0.4 %NormalProPromedica Defiance Regional Hospital Comment on above:Performed By: #### 77854-0 #### [facility] ([id number]) [address], [address] [place], [place] [address]Xhsoucuogkw (Bld) [#/Vol]0.1 10*3/uLNormal0.0-0.4ProCleveland Clinic Fairview Hospital HospitalComment on above:Performed By: #### 63053-7 #### [facility] ([id number]) [address], [address] [place], [place] [address]Wmvjjdvkwya/100 WBC (Bld)1.5 %NormalMemorial Hospital Comment on above:Performed By: #### 61962-8 #### [facility] ([id number]) [address], [address] [place], [place] [address]Nymnvmyevyc distribution width (RBC) [Ratio]15.9 %High11.5-15.0 [facility] HospitalComment on above:Performed By: #### 51505-4 #### [facility] ([id number]) [address], [address] [place], [place] [address]Bxddaddpks (Bld) [Volume fraction]33.8 %Yic49-80SjaXhysnoPromedica Defiance Regional HospitalComment on above:Performed By: #### 28320-8 #### [facility] ([id number]) [address], [address] [place], [place] [address]Qetnjrvuxo (Bld) [Mass/Vol]11.6 g/dLLow11.7-15.5[facility] HospitalComment on above:Performed By: #### 73383-1 #### [facility] ([id number]) [address], [address] [place], [place] [address]Bvphvaubzck (Bld) [#/Vol]1.7 10*3/uLNormal1.0-3.5POhioHealth Mansfield HospitalComment on above:Performed By: #### 23634-7 #### [facility] ([id number]) [address], [address] [place], [place] [address]Sfticqzycie/100 WBC (Bld)29.4 %NormalMemorial Hospital Comment on above:Performed By: #### 10180-6 #### [facility] ([id number]) [address], [address] [place], [place] [address]NPX (RBC) [Entitic mass]30.7 wvRkaqns50-00GtcMqihom Amin HospitalComment on above:Performed By: #### 18051-8 #### [facility] ([id number]) [address], [address] [place], [place] [address]QMUU (RBC) [Mass/Vol]34.2 g/tIHfvkhy76-52ZnnOwnpph Amin HospitalComment on above:Performed By: #### 39329-4 #### [facility] ([id number]) [address], [address] [place], [place] [address]XMR (RBC) [Entitic vol]90 pZTcivcq57-190BdfAuenvi Amin HospitalComment on above:Performed By: #### 24933-2 #### [facility] ([id number]) [address], [address] [place], [place] [address]Yfhxyooaq (Bld) [#/Vol]0.4 10*3/uLNormal0-0.9[facility] Amin HospitalComment on above:Performed By: #### 81489-9 #### [facility] ([id number]) [address], [address] [place], [place] [address]Kqcboeahv/100 WBC (Bld)6.1 %NormalMemorial Hospital Comment on above:Performed By: #### 42455-0 #### [facility] ([id number]) [address], [address] [place], [place] [address]Yxxdnxsyltg/100 WBC (Bld)62.6 %NormalMiami Valley Hospitalca [facility] Comment on above:Performed By: #### 48919-5 #### [facility] ([id number]) [address], [address] [place], [place] [address]Eheepmbf mean volume (Bld) [Entitic vol]8.9 fLNormal7-12 [facility] Amin HospitalComment on above:Performed By: #### 54436-1 #### [facility] ([id number]) [address], [address] [place], [place] [address]Phxdjzqsh (Bld) [#/Vol]132 10*3/qLPrc418-573DwqBixhzpPromedica Defiance Regional HospitalComment on above:Performed By: #### 04988-2 #### [facility] ([id number]) [address] [place] [address], [address] [place], [place] [address]HOK COUNT3.78 X10E12/LLow3.80-5.20ProPromedica [facility]iance Regional Hospital Comment on above:Performed By: #### 41608-7 #### [facility] ([id number]) [address] [place] [address], [address] [place], [place] [address]SSB (Bld) [#/Vol]5.8 10*3/uLNormal4.0-11.0ProPromedica Defiance Regional HospitalComment on above:Performed By: #### 20604-2 #### [facility] ([id number]) [address] [place] [address], [address] [place], [place] [address]Mrescrsd Pathologyon 48-98-2872Qdsymwym PathologyNoalMemorial HospitalComment on above:Result Comment: [facility]Oxford [employer] [facility]ly [facility] [address] [place] [address] Surgical Pathology Consultation Patient Name:JOSELIN VALENZUELA Kurt:2005 (Age: 18)Gender:FTaken:4Reported:11/25/2023hysician(s):Livier Hook M.D.Copy To:Deirdre Zuñiga [facility] Medical Centeression #:[id number]. Rec. #:[id number]: #[id number] Final Pathologic Diagnosis Placenta: 378-gram third trimester placenta with three-vessel umbilical cord. Report Electronically Signed Out pss/11/25/2023durga Lazo MD Interpretation performed at [facility] [address] [address], License number: [id number]. Clinical History Vasa previa, IUP vasa previa. [...] membrane, two sections of cord B-D Social Work Specialist sections of placenta (4,ss,C28-1438) /11/19/2023 Specimen(s) Received Placenta Fee Codes(s): 1; 98871EOGRN B SCREEN CULTUREon 11-08-2023S. agalactiae Org specific cx Ql (Vag+Rectum)CULTURE RESULTS NEGATIVE FOR GROUP B STREPTOCOCCUS BY NUCLEIC ACID AMPLIFICATIONNormalProMedica Prescott HospitalComment on above:Performed By: #### [id number] #### [facility] ([id number]) [address], [address] [place], [place] [address]BVX AND AUTO DIFFon 32-19-8847ESLFRHFM BASOPHIL0.0 X10E9/LNormal 0.0-0.2[facility] HospitalComment on above:Performed By: #### [id number] #### [facility] ([id number]) [address], [address] [place], [place] [address]QWLGVCTO NEUTROPHIL3.6 X10E9/LNormal1.5-6.6[facility] HospitalComment on above:Performed By: #### [id number] #### [facility] ([id number]) [address], [address] [place], [place] [address]Ffuqecufv/100 WBC (Bld)0.1 %[facility] Comment on above:Performed By: #### 37381-8 #### [facility] ([id number]) [address], [address] [place], [place] [address]Ubfgjninccl (Bld) [#/Vol]0.1 10*3/uLNormal0.0-0.4Pro[facility] HospitalComment on above:Performed By: #### 46794-0 #### [facility] ([id number]) [address], [address] [place], [place] [address]Yvgugmnhcad/100 WBC (Bld)1.0 %[facility] Comment on above:Performed By: #### 53123-2 #### [facility] ([id number]) [address], [address] [place], [place] [address]Wmekleojqnx distribution width (RBC) [Ratio]15.7 %High11.5-15.0 [facility] HospitalComment on above:Performed By: #### 10240-8 #### [facility] ([id number]) [address], [address] [place], [place] [address]Giizyioeye (Bld) [Volume fraction]34.0 %Pmf22-59YjzJuhewq [facility] HospitalComment on above:Performed By: #### 73204-2 #### [facility] ([id number]) [address], [address] [place], [place] [address]Mnyszrvwri (Bld) [Mass/Vol]11.6 g/dLLow11.7-15.5[facility] HospitalComment on above:Performed By: #### 64893-3 #### [facility] ([id number]) [address], [address] [place], [place] [address]Pdlworsbepq (Bld) [#/Vol]1.8 10*3/uLNormal1.0-3.5[facility]Medica Amin HospitalComment on above:Performed By: #### 53163-1 #### [facility] ([id number]) [address], [address] [place], [place] [address]Ylffpflxpxy/100 WBC (Bld)30.8 %NormalProPromedica Bay Park Hospitalca [facility] Comment on above:Performed By: #### 57276-4 #### [facility] ([id number]) [address], [address] [place], [place] [address]LKD (RBC) [Entitic mass]30.5 brUwvzmy16-60BnkUkasyc Amin HospitalComment on above:Performed By: #### 35348-0 #### [facility] ([id number]) [address], [address] [place], [place] [address]TGHW (RBC) [Mass/Vol]34.0 g/rZXnensp03-72KiiAydcle Amin HospitalComment on above:Performed By: #### 44460-7 #### [facility] ([id number]) [address], [address] [place], [place] [address]REJ (RBC) [Entitic vol]90 fEIkiowk82-852RpfMotham Amin HospitalComment on above:Performed By: #### 10594-8 #### [facility] ([id number]) [address], [address] [place], [place] [address]Hebdriwfb (Bld) [#/Vol]0.4 10*3/uLNormal0-0.9ProMed[facility] Amin HospitalComment on above:Performed By: #### 66697-0 #### [facility] ([id number]) [address], [address] [place], [place] [address]Nhqjqulox/100 WBC (Bld)6.2 %NormalProMedica [facility] Comment on above:Performed By: #### 75456-6 #### [facility] ([id number]) [address], [address] [place], [place] [address]Dhgorfequyc/100 WBC (Bld)61.9 %[facility] Comment on above:Performed By: #### 98548-2 #### [facility] ([id number]) [address], [address] [place], [place] [address]Tevxuxaq mean volume (Bld) [Entitic vol]8.6 fLNormal7-12 [facility] HospitalComment on above:Performed By: #### 94879-2 #### [facility] ([id number]) [address], [address] [place], [place] [address]Yhuixhhsf (Bld) [#/Vol]140 10*3/bRArh652-960DnlPkkqad [place] HospitalComment on above:Performed By: #### 28649-2 #### [facility] ([id number]) [address], [address] [place], [place] [address]OBA COUNT3.79 X10E12/LLow3.80-5.20[facility] Comment on above:Performed By: #### 43788-9 #### [facility] ([id number]) [address], [address] [place], [place] [address]MZU (Bld) [#/Vol]5.8 10*3/uLNormal4.0-11.0Memorial HospitalComment on above:Performed By: #### 40979-4 #### [facility] ([id number]) [address], [address] [place], [place] [address]UHGMGERGLMOTL METABOLIC PANELon 87-05-5643Wgdyyce [Mass/Vol]3.2 g/dLNormal3.2-5.3[facility] HospitalComment on above:Performed By: #### 36419-9 #### [facility] ([id number]) [address], [address] [place], [place] [address]JWV [Catalytic activity/Vol]93 U/MTfxwrx91-697EloIgqxew Amin HospitalComment on above:Performed By: #### 23534-1 #### [facility] ([id number]) [address], [address] [place], [place] [address]ACS [Catalytic activity/Vol]10 U/LNormal0-31ProMed[facility] Amin HospitalComment on above:Performed By: #### 50418-8 #### [facility] ([id number]) [address], [address] [place], [place] [address]Mrmoz gap [Moles/Vol]10 mmol/LNormal5-15ProMed[facility] Amin HospitalComment on above:Performed By: #### 06218-9 #### [facility] ([id number]) [address], [address] [place], [place] [address]FFV [Catalytic activity/Vol]10 U/LNormal0-41[facility] Amin HospitalComment on above:Performed By: #### 09099-2 #### [facility] ([id number]) [address], [address] [place], [place] [address]Hlztruepr [Mass/Vol]0.4 mg/dLNormal0.3-1.2ProMedica Amin HospitalComment on above:Performed By: #### 78178-8 #### [facility] ([id number]) [address], [address] [place], [place] [address]Pknyetz [Mass/Vol]8.5 mg/dLNormal8.5-10.5[facility] Amin HospitalComment on above:Performed By: #### 96207-8 #### [facility] ([id number]) [address], [address] [place], [place] [address]Uhzliijl [Moles/Vol]107 mmol/WUeicfa78-803MgrQojeau Amin HospitalComment on above:Performed By: #### 29021-2 #### [facility] ([id number]) [address], [address] [place], [place] [address]QG9 [Moles/Vol]23 mmol/EXjygfv97-04KvpJrovinOhioHealth Mansfield Hospital Comment on above:Performed By: #### 71761-2 #### [facility] ([id number]) [address], [address] [place], [place] [address]Tgynhqraln [Mass/Vol]0.50 mg/dLNormal0.40-1.00Memorial HospitalComment on above:Result Comment: METHOD TRACEABLE TO IDMS STANDARD Performed By: #### 13664-8 #### [facility] ([id number]) [address], [address] [place], [place] [address]vBAU (CKD-EPI) NON-RACE DEPENDENT>90Normal>59ProPromedica Defiance Regional HospitalComment on above:Result Comment: Reported eGFR is based on the CKD-EPI 2020 equation that does not use a race coefficient.Performed By: #### 14227-3 #### [facility] ([id number]) [address], [address] [place], [place] [address]Cmqwecr [Mass/Vol]79 mg/mBGhfmdn61-35BtzPxqrpvMemorial Hospital Comment on above:Performed By: #### 50823-0 #### [facility] ([id number]) [address], [address] [place], [place] [address]Hwiyztawg [Moles/Vol]3.9 mmol/LNormal3.5-5.0Memorial HospitalComment on above:Performed By: #### 38522-9 #### [facility] ([id number]) [address], [address] [place], [place] [address]Pjaggoo [Mass/Vol]5.4 g/dLLow6.0-8.0[facility] Comment on above:Performed By: #### 97380-3 #### [facility] ([id number]) [address], [address] [place], [place] [address]Yefbjv [Moles/Vol]140 mmol/CVckoqa865-567RtpQvtpgp Amin HospitalComment on above:Performed By: #### 11852-0 #### [facility] ([id number]) [address], [address] [place], [place] [address]Jtzr nitrogen [Mass/Vol]4 mg/dLLow5-23[facility] Comment on above:Performed By: #### 20255-3 #### [facility] ([id number]) [address], [address] [place], [place] [address]XYBPTLUSJKne 60-76-7198Lixvpmvpq Ql (U)NegativeNormalNEG [facility] Amin HospitalComment on above:Performed By: #### 07015-2 #### [facility] ([id number]) [address], [address] [place], [place] [address]YOVJE/HGBTraceAbnormalNEGProMedica Amin HospitalComment on above:Performed By: #### 28513-4 #### [facility] ([id number]) [address], [address] [place], [place] [address]Kvlmj (U)YELLOWNormalYELLOWProMedica Amin HospitalComment on above:Performed By: #### 36820-9 #### [facility] ([id number]) [address], [address] [place], [place] [address]Gokghod Ql (U)NegativeNormalNEGProMedica Amin HospitalComment on above:Performed By: #### 40311-6 #### [facility] ([id number]) [address], [address] [place], [place] [address]Apwhgec Ql (U)100 mg/dLAbnormalNEGProMedica [facility] Comment on above:Performed By: #### 72009-0 #### [facility] ([id number]) [address], [address] [place], [place] [address]Hsoznwqyo esterase Test strip Ql (U)NegativeNormalNEGProMedica Amin HospitalComment on above:Performed By: #### 27273-4 #### [facility] ([id number]) [address] [place], [place] [address]KNEXRVMYXHLNQZiouxsmwPWERCdaKnrhco Amin HospitalComment on above:Performed By: #### 84404-0 #### [facility] ([id number]) [address] [place], [place] [address]Hyftyaj Ql (U)NegativeNormalNEGProMedica Amin HospitalComment on above:Performed By: #### 68117-0 #### [facility] ([id number]) [address] [place], [place] [address]vY (U)5.0 [pH]Normal5.0-8.5ProMed[facility] Amin HospitalComment on above:Performed By: #### 93660-9 #### [facility] ([id number]) [address], [address] [place], [place] [address]Vggktpc Ql (U)NegativeNormalNEGProMedica Amin HospitalComment on above:Performed By: #### 53050-1 #### [facility] ([id number]) [address], [address] [place], [place] [address]O.B.CELLS2 /hpfNormal0-5ProMedica Amin HospitalComment on above:Performed By: #### 81580-6 #### [facility] ([id number]) [address], [address] [place], [place] [address]Vyfmukzy gravity (U) [Rel density]1.463Voednv2.003-1.035 [facility] Amin HospitalComment on above:Performed By: #### 24258-8 #### [facility] ([id number]) [address], [address] [place], [place] [address]ZZLPWSGH EPITHELIUM1 /hpfNormal0-5POhioHealth Mansfield Hospital Comment on above:Performed By: #### 01339-6 #### [facility] ([id number]) [address], [address] [place], [place] [address]ESKFXOUVWBZNHZJqlymiWBRYLTtlVvyapi [place] HospitalComment on above:Performed By: #### 56122-4 #### [facility] ([id number]) [address], [address] [place], [place] [address]Yghamlaefn dipstick W Reflex Microscopic panel (U)URINE RECEIVED WITHOUT PRESERVATIVE-DELAYS IN TRANSPORT MAY AFFECT RESULTS.INTERPRET WITH CAUTION AND CLINICAL CORRELATION IS RECOMMENDED.Normal[facility] Comment on above:Performed By: #### 67201-6 #### [facility] ([id number]) [address], [address] [place], [place] [address]Ymhymekdrdzz (U) [Mass/Vol]mg/dLNormal<1.1POhioHealth Mansfield HospitalComment on above:Performed By: #### 74618-2 #### [facility] ([id number]) [address], [address] [place], [place] [address]R.B.CELLS<7Lbvltg0-7RuaVnbxkrOhioHealth Mansfield HospitalComment on above: Performed By: #### 65435-2 #### [facility] ([id number]) [address], [address] [place], [place] [address]FRV AND AUTO DIFFon 21-28-8220WKXEANRO BASOPHIL0.0 X10E9/LNormal 0.0-0.2POhioHealth Mansfield HospitalComment on above:Performed By: #### CBCA, CMP #### [facility] ([id number]) [address] [place], [place] [address]ALBXZTVA NEUTROPHIL4.5 X10E9/LNormal1.5-6.6ProCleveland Clinic [facility] HospitalComment on above:Performed By: #### CBCA, CMP #### [facility] ([id number]) [address], [address] [place], [place] [address]Yrhssofgr/100 WBC (Bld)0.2 %[facility] Comment on above:Performed By: #### CBCA, CMP #### [facility] ([id number]) [address] [place], [place] [address]Jmuyqnoqusl (Bld) [#/Vol]0.1 10*3/uLNormal0.0-0.4ProCleveland Clinic Fairview Hospital HospitalComment on above:Performed By: #### CBCA, CMP #### [facility] ([id number]) [address] [place], [place] [address]Succymljkve/100 WBC (Bld)2.0 %[facility] Comment on above:Performed By: #### CBCA, CMP #### [facility] ([id number]) [address] [address]Umwsmwzcmrp distribution width (RBC) [Ratio]16.7 %High11.5-15.0 ProMsearcy hospitala [facility] HospitalComment on above:Performed By: #### CBCA, CMP #### [facility] ([id number]) [address] [address] [place], [place] [address]Cqooqvcuib (Bld) [Volume fraction]35.4 %Iiubye58-53CtiPuizwl [place] HospitalComment on above:Performed By: #### CBCA, CMP #### [facility] ([id number]) [address], [address] [place], [place] [address]Bzuiyocxqi (Bld) [Mass/Vol]12.0 g/tTBkkeeh61.7-15.5[facility] HospitalComment on above:Performed By: #### CBCA, CMP #### [facility] ([id number]) [address], [address] [place], [place] [address]Lvzevekuayt (Bld) [#/Vol]1.5 10*3/uLNormal1.0-3.5[facility] HospitalComment on above:Performed By: #### CBCA, CMP #### [facility] ([id number]) [address], [address] [place], [place] [address]Cmajtvweuwz/100 WBC (Bld)23.7 %NormalProCleveland Clinic [facility] Hospital Comment on above:Performed By: #### CBCA, CMP #### [facility] ([id number]) [address], [address] [place], [place] [address]ANZ (RBC) [Entitic mass]30.7 rmRlivbc66-83YpaJoxlnl [place] HospitalComment on above:Performed By: #### CBCA, CMP #### [facility] ([id number]) [address], [address] [place], [place] [address]ISJB (RBC) [Mass/Vol]34.1 g/pONzvdwv20-32AsfRdgzof [place] HospitalComment on above:Performed By: #### CBCA, CMP #### [facility] ([id number]) [address], [address] [place], [place] [address]ADP (RBC) [Entitic vol]90 nYKqalbp15-239QdiFhrkde [place] HospitalComment on above:Performed By: #### CBCA, CMP #### [facility] ([id number]) [address], [address] [place], [place] [address]Jigjpfvqk (Bld) [#/Vol]0.3 10*3/uLNormal0-0.9ProPromedica Bay Park Hospitalca [facility] HospitalComment on above:Performed By: #### CBCA, CMP #### [facility] ([id number]) [address], [address] [place], [place] [address]Bebaspgxt/100 WBC (Bld)5.2 %[facility] Comment on above:Performed By: #### CBCA, CMP #### [facility] ([id number]) [address], [address] [place], [place] [address]Gehfbmzktsp/100 WBC (Bld)68.9 %[facility] Comment on above:Performed By: #### CBCA, CMP #### [facility] ([id number]) [address] [place], [place] [address]Jmanggyy mean volume (Bld) [Entitic vol]8.7 fLNormal7-12 [facility] CenterComment on above:Performed By: #### CBCA, CMP #### [facility] ([id number]) [address], [address] [place], [place] [address]Emorhbvno (Bld) [#/Vol]158 10*3/oOOxpztr846-451GfbHjeajm [place] HospitalComment on above:Performed By: #### CBCA, CMP #### [facility] ([id number]) [address], [address] [place], [place] [address]YQS COUNT3.93 X10E12/LNormal3.80-5.20[facility] Comment on above:Performed By: #### CBCA, CMP #### [facility] ([id number]) [address] [place], [place] [address]RBL (Bld) [#/Vol]6.5 10*3/uLNormal4.0-11.0ProPromedica [facility] Regional HospitalComment on above:Performed By: #### CBCA, CMP #### [facility] ([id number]) [address], [address] [place], [place] [address]NZXCCCISXDUAL METABOLIC PANELon 12-97-7023Lgtwzzm [Mass/Vol]3.4 g/dLNormal3.2-5.3[facility] Amin HospitalComment on above:Performed By: #### CBCMi, CMP #### [facility] ([id number]) [address], [address] [place], [place] [address]CJD [Catalytic activity/Vol]75 U/XTubhkr34-236ZzpQevqpz Amin HospitalComment on above:Performed By: #### CBCMi, CMP #### [facility] ([id number]) [address], [address] [place], [place] [address]IPW [Catalytic activity/Vol]13 U/LNormal0-31[facility] Amin HospitalComment on above:Performed By: #### CBCMi, CMP #### [facility] ([id number]) [address] [place], [place] [address]Zxffy gap [Moles/Vol]10 mmol/LNormal5-15[facility] Amin HospitalComment on above:Performed By: #### CBCMi, CMP #### [facility] ([id number]) [address] [place], [place] [address]WMZ [Catalytic activity/Vol]18 U/LNormal0-41[facility] Main HospitalComment on above:Performed By: #### CBCMi, CMP #### [facility] ([id number]) [address] [place], [place] [address]Ulfwneseg [Mass/Vol]0.4 mg/dLNormal0.3-1.2[facility] Amin HospitalComment on above:Performed By: #### CBCA, CMP #### [facility] ([id number]) [address] [place], [place] [address]Zoubybt [Mass/Vol]9.0 mg/dLNormal8.5-10.5[facility] Amin HospitalComment on above:Performed By: #### CBCA, CMP #### [facility] ([id number]) [address] [place], [place] [address]Niyddidd [Moles/Vol]103 mmol/OZtwcui71-512SbqZptybu [place] HospitalComment on above:Performed By: #### CBCMi, CMP #### [facility] ([id number]) [address] [place], [place] [address]KO8 [Moles/Vol]22 mmol/MWefapo81-64BooVybvth [facility] Comment on above:Performed By: #### CBCA, CMP #### [facility] ([id number]) [address] [address] [place], [place] [address]Lgkgvexnxi [Mass/Vol]0.51 mg/dLNormal0.40-1.00ProPromedica [facility]iance Regional HospitalComment on above:Result Comment: METHOD TRACEABLE TO IDMS STANDARD Performed By: #### MARIAMA, CMP #### [facility] ([id number]) [address] [address] [place], [place] [address]lMTH (CKD-EPI) NON-RACE DEPENDENT>90Normal>59ProPromedica Defiance Regional HospitalComment on above:Result Comment: Reported eGFR is based on the CKD-EPI 2020 equation that does not use a race coefficient.Performed By: #### CBCMi, CMP #### [facility] ([id number]) [address] [address] [place], [place] [address]Wjskbks [Mass/Vol]100 mg/mEDouh74-98RgaSetcikPromedica Defiance Regional Hospital Comment on above:Performed By: #### CBCA, CMP #### [facility] ([id number]) [address] [address] [place], [place] [address]Bbogjymxt [Moles/Vol]3.4 mmol/LLow3.5-5.0ProPromedica Defiance Regional HospitalComment on above:Performed By: #### CBCA, CMP #### [facility] ([id number]) [address] [place], [place] [address]Cawszfd [Mass/Vol]6.2 g/dLNormal6.0-8.0[facility] Comment on above:Performed By: #### CBCA, CMP #### [facility] ([id number]) [address] [place], [place] [address]Jptbvs [Moles/Vol]135 mmol/KCyndyr283-531ZhnTyayjw [place] HospitalComment on above:Performed By: #### CBCA, CMP #### [facility] ([id number]) [address] [place], [place] [address]Cewb nitrogen [Mass/Vol]4 mg/dLLow5-23[facility] Comment on above:Performed By: #### CBCA, CMP #### [facility] ([id number]) [address] [place], [place] [address]HCY AND AUTO DIFFon 37-75-1217UIWTBFKA BASOPHIL0.0 X10E9/LNormal 0.0-0.2ProMedKettering Health Hamilton HospitalComment on above:Performed By: #### CBCA, CMP #### [facility] ([id number]) [address] [place], [place] [address]DDHQSMBR NEUTROPHIL4.9 X10E9/LNormal1.5-6.6ProPromedica Def[facility] Regional HospitalComment on above:Performed By: #### CBCA, CMP #### [facility] ([id number]) [address] [place], [place] [address]Gxyptfbnu/100 WBC (Bld)0.2 %NormalMemorial Hospital Comment on above:Performed By: #### CBCA, CMP #### [facility] ([id number]) [address] [place], [place] [address]Fnmgkxrwzik (Bld) [#/Vol]0.1 10*3/uLNormal0.0-0.4ProMedica Amin HospitalComment on above:Performed By: #### CBCA, CMP #### [facility] ([id number]) [address], [address] [place], [place] [address]Uzxcjtlsdin/100 WBC (Bld)1.3 %[facility] Comment on above:Performed By: #### CBCA, CMP #### [facility] ([id number]) [address], [address] [place], [place] [address]Usshlqwlvfv distribution width (RBC) [Ratio]16.5 %High11.5-15.0 [facility] CenterComment on above:Performed By: #### CBCA, CMP #### [facility] ([id number]) [address], [address] [place], [place] [address]Qyrhutoasl (Bld) [Volume fraction]35.8 %Oxzvbj97-57KzfSeqkcfPromedica Defiance Regional HospitalComment on above:Performed By: #### CBCA, CMP #### [facility] ([id number]) [address], [address] [place], [place] [address]Hnhiearaxr (Bld) [Mass/Vol]12.1 g/pVVgcwrk86.7-15.5POhioHealth Mansfield HospitalComment on above:Performed By: #### CBCA, CMP #### [facility] ([id number]) [address], [address] [place], [place] [address]Jlhjkabxrpw (Bld) [#/Vol]1.3 10*3/uLNormal1.0-3.5PMercy Health [facility] HospitalComment on above:Performed By: #### CBCA, CMP #### [facility] ([id number]) [address], [address] [place], [place] [address]Jokcgpyandl/100 WBC (Bld)18.8 %[facility] Comment on above:Performed By: #### CBCA, CMP #### [facility] ([id number]) [address], [address] [place], [place] [address]QMP (RBC) [Entitic mass]30.3 xqBnggod89-21DmjXkjofz [place] HospitalComment on above:Performed By: #### CBCA, CMP #### [facility] ([id number]) [address], [address] [place], [place] [address]NIDZ (RBC) [Mass/Vol]33.7 g/bUMsmxtn13-41ToqUtereh [facility]cott HospitalComment on above:Performed By: #### CBCA, CMP #### [facility] ([id number]) [address], [address] [place], [place] [address]OZI (RBC) [Entitic vol]90 yHBqevck29-832MpfDuxsgp [place] HospitalComment on above:Performed By: #### CBCA, CMP #### [facility] ([id number]) [address], [address] [place], [place] [address]Idufzowzz (Bld) [#/Vol]0.4 10*3/uLNormal0-0.9ProPromedica Defiance Regional HospitalComment on above:Performed By: #### CBCA, CMP #### [facility] ([id number]) [address], [address] [place], [place] [address]Ozieojjcu/100 WBC (Bld)5.3 %[facility] Comment on above:Performed By: #### CBCA, CMP #### [facility] ([id number]) [address], [address] [place], [place] [address]Mqnrwrkasmq/100 WBC (Bld)74.4 %[facility] Comment on above:Performed By: #### CBCA, CMP #### [facility] ([id number]) [address], [address] [place], [place] [address]Zxavcuxx mean volume (Bld) [Entitic vol]8.6 fLNormal7-12 [facility] Amin HospitalComment on above:Performed By: #### CBCMi, CMP #### [facility] ([id number]) [address], [address] [place], [place] [address]Bonjqbayj (Bld) [#/Vol]161 10*3/tQEzqdhu796-651DtiOctgwg Amin HospitalComment on above:Performed By: #### CBCA, CMP #### [facility] ([id number]) [address], [address] [place], [place] [address]JIR COUNT3.98 X10E12/LNormal3.80-5.20ProProm[facility] Hospitalca [facility] Comment on above:Performed By: #### CBCMi, CMP #### [facility] ([id number]) [address], [address] [place], [place] [address]YUO (Bld) [#/Vol]6.7 10*3/uLNormal4.0-11.0ProPromedica Bay Park Hospitalca Amin HospitalComment on above:Performed By: #### CBCMi, CMP #### [facility] ([id number]) [address], [address] [place], [place] [address]BUGTUFBQBZYJV METABOLIC PANELon 02-15-1048Vwomjvu [Mass/Vol]3.7 g/dLNormal3.2-5.3[facility] Amin HospitalComment on above:Performed By: #### CBCiM, CMP #### [facility] ([id number]) [address], [address] [place], [place] [address]BWF [Catalytic activity/Vol]79 U/LMpawwg85-713UlxNlqjdr Amin HospitalComment on above:Performed By: #### CBCA, CMP #### [facility] ([id number]) [address], [address] [place], [place] [address]TMX [Catalytic activity/Vol]16 U/LNormal0-31[facility] Amin HospitalComment on above:Performed By: #### CBCA, CMP #### [facility] ([id number]) [address], [address] [place], [place] [address]Vfqll gap [Moles/Vol]9 mmol/LNormal5-15[facility] Comment on above:Performed By: #### CBCA, CMP #### [facility] ([id number]) [address], [address] [place], [place] [address]PHP [Catalytic activity/Vol]15 U/LNormal0-41ProPromedica [facility] Regional HospitalComment on above:Performed By: #### CBCA, CMP #### [facility] ([id number]) [address], [address] [place], [place] [address]Woamcsfrf [Mass/Vol]0.4 mg/dLNormal0.3-1.2POhioHealth Mansfield HospitalComment on above:Performed By: #### CBCA, CMP #### [facility] ([id number]) [address], [address] [place], [place] [address]Jbafgjz [Mass/Vol]8.4 mg/dLLow8.5-10.5POhioHealth Mansfield Hospital Comment on above:Performed By: #### CBCA, CMP #### [facility] ([id number]) [address], [address] [place], [place] [address]Pdcezfkp [Moles/Vol]104 mmol/VAsilme85-512ShjHprxsx [place] HospitalComment on above:Performed By: #### CBCA, CMP #### [facility] ([id number]) [address], [address] [place], [place] [address]UJ1 [Moles/Vol]23 mmol/WVymwfu77-16OpyBidkciOhioHealth Mansfield Hospital Comment on above:Performed By: #### CBCA, CMP #### [facility] ([id number]) [address], [address] [place], [place] [address]Xfwxyhuvwm [Mass/Vol]0.44 mg/dLNormal0.40-1.00ProC[facility] HospitalComment on above:Result Comment: METHOD TRACEABLE TO IDMS STANDARD Performed By: #### MARIAMA, CMP #### [facility] ([id number]) [address], [address] [place], [place] [address]iMXA (CKD-EPI) NON-RACE DEPENDENT>90Normal>59ProCleveland Clinic Fairview Hospital HospitalComment on above:Result Comment: Reported eGFR is based on the CKD-EPI 2020 equation that does not use a race coefficient.Performed By: #### MARIAMA, CMP #### [facility] ([id number]) [address], [address] [place], [place] [address]Wzxfnjg [Mass/Vol]103 mg/hWXdzd02-96SzsZvrtuiMemorial Hospital Comment on above:Performed By: #### MARIAMA, CMP #### [facility] ([id number]) [address] [place], [place] [address]Wkzuaafiv [Moles/Vol]3.7 mmol/LNormal3.5-5.0ProPromedica [facility]iance Regional HospitalComment on above:Performed By: #### MARIAMA, CMP #### [facility] ([id number]) [address], [address] [place], [place] [address]Rtuideu [Mass/Vol]6.3 g/dLNormal6.0-8.0[facility] Comment on above:Performed By: #### MARIAMA, CMP #### [facility] ([id number]) [address], [address] [place], [place] [address]Kvapci [Moles/Vol]136 mmol/UXwyqnv781-311LkuYteipo [place] HospitalComment on above:Performed By: #### CBCMi, CMP #### [facility] ([id number]) [address], [address] [place], [place] [address]Xoln nitrogen [Mass/Vol]5 mg/dLNormal5-23[facility] Amin HospitalComment on above:Performed By: #### CBCA, CMP #### [facility] ([id number]) [address], [address] [place], [place] [address]VPSP PATHOGENS/KIXY-CiX-1oq 16-28-2603Itppznggufr pathogens DNA and RNA panel FREDDY+non-probe (Nph)SPECIMEN SOURCE NASO PHARYNX ADENOVIRUS Not detected (qualifier [...] 2 Not detected (qualifier value) NOTE The [employer] Respiratory Panel 2.1 (RP2.1) is a multiplexed [...] evaluating a patient with possible respiratory tract infection.NormalMemorial HospitalComment on above:Performed By: #### 70804-2 #### [facility] ([id number]) [address], [address] [place] [address]GSI AND AUTO DIFFon 64-31-7517CYBEKRQE BASOPHIL0.0 X10E9/LNormal 0.0-0.2ProMedJ.W. Ruby Memorial HospitalComment on above:Performed By: #### CBCMi, 11950- 1, 08449-6 #### [facility] ([id number]) [address], [address] [address]PQWUGRSB NEUTROPHIL4.1 X10E9/LNormal1.5-6.6ProPromedica Defiance Regional HospitalComment on above:Performed By: #### CBCMi, 80060-2, 18752-1 #### [facility] ([id number]) [address], [address] [place] [address]Gdjltwfic/100 WBC (Bld)0.5 %NormalMemorial Hospital Comment on above:Performed By: #### CBCMi, 84574-4, 29460-3 #### [facility] ([id number]) [address], [address] [address]Cslvhnqjptu (Bld) [#/Vol]0.1 10*3/uLNormal0.0-0.4[facility] HospitalComment on above:Performed By: #### MARIAMA, 01473-9, 72978-7 #### [facility] ([id number]) [address], [address] [place], [place] [address]Ogkxfwjtzsf/100 WBC (Bld)1.6 %NormalProCleveland Clinic [facility] Hospital Hospital Comment on above:Performed By: #### MARIAMA, 61449-8, 18023-1 #### [facility] ([id number]) [address], [address] [place], [place] [address]Kxgdfhdouob distribution width (RBC) [Ratio]15.5 %High11.5-15.0 [facility] HospitalComment on above:Performed By: #### MARIAMA, 58218-4, 98486-4 #### [facility] ([id number]) [address], [address] [place], [place] [address]Evumximqze (Bld) [Volume fraction]32.8 %Qop46-21CvsKkqodh [place] HospitalComment on above:Performed By: #### MARIAMA, 40536-1, 16790-2 #### [facility] ([id number]) [address], [address] [place], [place] [address]Nauamigkox (Bld) [Mass/Vol]11.4 g/dLLow11.7-15.5[facility] HospitalComment on above:Performed By: #### MARIAMA, 14918-9, 49109-7 #### [facility] ([id number]) [address], [address] [place], [place] [address]Aldcqwddrpz (Bld) [#/Vol]1.7 10*3/uLNormal1.0-3.5ProMedKettering Health Hamilton HospitalComment on above:Performed By: #### MARIAMA, 60136-3, 15008-4 #### [facility] ([id number]) [address], [address] [place], [place] [address]Mxvlopohrzd/100 WBC (Bld)26.9 %NormalMemorial Hospital Comment on above:Performed By: #### CBCMi, 26252-4, 94594-5 #### [facility] ([id number]) [address], [address] [place], [place] [address]RKB (RBC) [Entitic mass]31.1 qfWqvxys67-41McbEspvek Amin HospitalComment on above:Performed By: #### CBCMi, 55583-3, 81375-4 #### [facility] ([id number]) [address], [address] [place], [place] [address]EUHY (RBC) [Mass/Vol]34.7 g/kCTujcsz78-06YswCbdeiy Amin HospitalComment on above:Performed By: #### CBCMi, 26584-1, 24513-2 #### [facility] ([id number]) [address], [address] [place], [place] [address]NCR (RBC) [Entitic vol]90 uNUdhijo02-675WdrXuavks [facility] HospitalComment on above:Performed By: #### CBCMi, 00104-2, 67183-9 #### [facility] ([id number]) [address], [address] [place], [place] [address]Ptgynivjf (Bld) [#/Vol]0.5 10*3/uLNormal0-0.9Pro[facility] Amin HospitalComment on above:Performed By: #### CBCMi, 62773-5, 98281-9 #### [facility] ([id number]) [address], [address] [place], [place] [address]Kkzshnoch/100 WBC (Bld)7.2 %NormalMiami Valley Hospitalca [facility] Comment on above:Performed By: #### CBCMi, 68611-5, 48849-1 #### [facility] ([id number]) [address], [address] [place], [place] [address]Qmafprqyani/100 WBC (Bld)63.8 %NormalMemorial Hospital Comment on above:Performed By: #### MARIAMA, 87901-7, 80153-2 #### [facility] ([id number]) [address], [address] [place], [place] [address]Rnsygyei mean volume (Bld) [Entitic vol]8.8 fLNormal7-12 ProMSelect Medical Specialty Hospital - TrumbullComment on above:Performed By: #### MARIAMA, 47822-5, 81851-0 #### [facility] ([id number]) [address] [place], [place] [address]Cfzbdykww (Bld) [#/Vol]178 10*3/vZPxxehx650-796JrqLnjfop [place] HospitalComment on above:Performed By: #### MARIAMA, 28484-6, 12916-8 #### [facility] ([id number]) [address], [address] [place], [place] [address]LWR COUNT3.66 X10E12/LLow3.80-5.20[facility] Comment on above:Performed By: #### MARIAMA, 01032-9, 06083-1 #### [facility] ([id number]) [address] [place], [place] [address]KGC (Bld) [#/Vol]6.5 10*3/uLNormal4.0-11.0Memorial HospitalComment on above:Performed By: #### MARIAMA, 00654-3, 92043-0 #### [facility] ([id number]) [address], [address] [place], [place] [address]MRF 1+2 Ab+HIV1 p24 Ag IA Qlon 13-84-0481UON 1 and 2 Ab/Ag ScreenNon-ReactiveNormalNRCTProPromedica Defiance Regional HospitalComment on above:Result Comment: This information has been disclosed to [...] test results or diagnoses. Performed By: #### MARIAMA, 82480-6, 58142-3 #### [facility] ([id number]) [address] [place] [address]. pallidum IgG+IgM IA Ql (S)on 35-27-9884Tsloetyb Total<0.2 Normal0.0-0.8ProPromedica Defiance Regional HospitalComment on above:Result Comment: NON REACTIVE No serologic evidence of infection to Treponema pallidum (syphilis). Repeat testing may be considered in patients with suspected acute or primary syphilis in 2 to 4 weeks.Performed By: #### MARIAMA, 54201-0, 30102-2 #### [facility] ([id number]) [address] [place] [address]Qaevbzd 1 Hr post dose glucose [Mass/Vol]on HR GTT 105 mg/pBLfp353-929ChvXstayxPromedica Defiance Regional HospitalComment on above:Performed By: #### 37887-9 #### [facility] ([id number]) [address] [place] [address]HBB AND AUTO DIFFon 13-23-1883TSUQPOQH BASOPHIL0.0 X10E9/LNormal 0.0-0.2[facility] Medical CenterComment on above:Performed By: #### CBCA #### [facility] ([id number]) [address] [place] [address]UXXSWAUX NEUTROPHIL3.8 X10E9/LNormal1.5-6.6ProPromedica [facility] Hospitalca [facility] HospitalComment on above:Performed By: #### CBCA #### [facility] ([id number]) [address], [address] [place], [place] [address]Adhnvpyyq/100 WBC (Bld)0.2 %NormalMemorial Hospital Comment on above:Performed By: #### CBCA #### [facility] ([id number]) [address] [place], [place] [address]Zgawnvnsmde (Bld) [#/Vol]0.1 10*3/uLNormal0.0-0.4ProPromedica Bay Park Hospitalca [facility] HospitalComment on above:Performed By: #### CBCA #### [facility] ([id number]) [address] [place], [place] [address]Txlwvqhllsi/100 WBC (Bld)1.6 %NormalMemorial Hospital Comment on above:Performed By: #### CBCA #### [facility] ([id number]) [address] [place], [place] [address]Uphmfjbyclg distribution width (RBC) [Ratio]14.8 %Normal 11.5-15.0ProC[facility] Clinic [facility] HospitalComment on above:Performed By: #### CBCA #### [facility] ([id number]) [address] [address] [place], [place] [address]Ivbkcvhdlg (Bld) [Volume fraction]32.5 %Dnk28-35SqrOyawfe [facility] HospitalComment on above:Performed By: #### CBCA #### [facility] ([id number]) [address] [place], [place] [address]Osjrtzhxna (Bld) [Mass/Vol]11.0 g/dLLow11.7-15.5[facility] HospitalComment on above:Performed By: #### CBCA #### [facility] ([id number]) [address] [place], [place] [address]Zjqdpihxuhi (Bld) [#/Vol]1.7 10*3/uLNormal1.0-3.5[facility] HospitalComment on above:Performed By: #### CBCA #### [facility] ([id number]) [address] [place], [place] [address]Usfohaossll/100 WBC (Bld)28.2 %NormalProPromedica Bay Park Hospitalca [facility] Comment on above:Performed By: #### CBCA #### [facility] ([id number]) [address] [place], [place] [address]DKP (RBC) [Entitic mass]29.6 rpRtjzux76-55WbrFyjqkn [facility] HospitalComment on above:Performed By: #### CBCA #### [facility] ([id number]) [address] [place], [place] [address]IUCB (RBC) [Mass/Vol]34.0 g/zYBjmpde91-37GsqQxwdtc [facility] HospitalComment on above:Performed By: #### CBCA #### [facility] ([id number]) [address] [place], [place] [address]GYG (RBC) [Entitic vol]87 gFOlemnk88-550JktJdbomn [facility] HospitalComment on above:Performed By: #### CBCA #### [facility] ([id number]) [address] [place], [place] [address]Dmpfpdoxa (Bld) [#/Vol]0.4 10*3/uLNormal0-0.9[facility] HospitalComment on above:Performed By: #### CBCA #### [facility] ([id number]) [address] [place], [place] [address]Jtkjyttts/100 WBC (Bld)7.3 %NormalMemorial Hospital Comment on above:Performed By: #### CBCA #### [facility] ([id number]) [address] [place], [place] [address]Egbcwnmiuip/100 WBC (Bld)62.7 %[facility] Comment on above:Performed By: #### CBCA #### [facility] ([id number]) [address] [place], [place] [address]Ezkbzkfo mean volume (Bld) [Entitic vol]9.0 fLNormal7-12 [facility] Medical CenterComment on above:Performed By: #### CBCA #### [facility] ([id number]) [address] [place], [place] [address]Frvsqrbqq (Bld) [#/Vol]163 10*3/zEAvbgok822-829GjxAyhhez [place] HospitalComment on above:Performed By: #### CBCA #### [facility] ([id number]) [address] [place], [place] [address]XMB COUNT3.73 X10E12/LLow3.80-5.20[facility] Comment on above:Performed By: #### CBCA #### [facility] ([id number]) [address], [address] [place], [place] [address]QHG (Bld) [#/Vol]6.0 10*3/uLNormal4.0-11.0Memorial HospitalComment on above:Performed By: #### CBCA #### [facility] ([id number]) [address] [place], [place] [address]Kejjdhz aminotransferase [Enzymatic activity/volume] in Serum or PlasmaOrdered By: Mishel Dimas on 17-20-7907CUU [Catalytic activity/Vol]13 U/L7-52[facility] HospitalAlbumin [Mass/volume] in Serum or Plasma by Bromocresol green (BCG) dye binding methoOrdered By: Mishel Dimas on 25-35-8351Ypfpabf BCG dye [Mass/Vol]4.8 g/dL3.5-5.7FSelect Medical Specialty Hospital - ColumbusAlkaline phosphatase [Enzymatic activity/volume] in Serum or PlasmaOrdered By: Mishel Dimas on 96-90-5178GOM [Catalytic activity/Vol]60 U/L34-104 [facility] HospitalAspartate aminotransferase [Enzymatic activity/volume] in Serum or PlasmaOrdered By: Mishel Dimas on 03-26-2023 AST [Catalytic activity/Vol]18 U/A69-39QwhrzjhpoSt. John Of God Hospital Basophils Auto (Bld) [#/Vol]Ordered By: Mishel Dimas on 98-30-3943Ptxggpoez (Bld) [#/Vol]0.0 10*3/uL0.0-0.2FSelect Medical Specialty Hospital - ColumbusBasophils/100 WBC Auto (Bld)Ordered By: Mishel Dimas on 18-10-7651Dzjqxobjo/100 WBC (Bld) 0.4 %.[facility] HospitalBilirubin.total [Mass/volume] in Serum or PlasmaOrdered By: Mishel Dimas on 81-91-8543Nbvobivfj [Mass/Vol]0.5 mg/dL 0.3-1.0[facility] HospitalCalcium [Mass/volume] in Serum or Plasma Ordered By: Mishel Dimas on 32-36-1225Xkqfvtw [Mass/Vol]9.5 mg/dL8.6-10.3 [facility] HospitalCarbon dioxide, total [Moles/volume] in Serum or PlasmaOrdered By: Mishel Dimas on 76-02-5595RH4 [Moles/Vol]27.7 mmol/L 21.0-31.0[facility] HospitalChloride [Moles/volume] in Serum or PlasmaOrdered By: Mishel Dimas on 17-86-4432Qfcpxdsi [Moles/Vol]107 mmol/L 98-107St. [facility] HospitalComplete Blood Count Auto Diffon 06-33-0752Opeeuhoue (Bld) [#/Vol]0.0 10*3/uLNormal0.0-0.2The [facility] Physician GroupComment on above:Order Comment: Reason for Exam Wellness examination;Screening for metabolic disorder;ScreenResult Comment: PERFORMED BY: [place] [address] PATHOLOGIST [employer]IL [employer] ELYSE WHIPPLE M.D.Performed By: #### TSH3 wRFLX, CMP, CBC #### [place] [address] USABasophils/100 WBC (Bld)0.4 %Normal.The [facility] Physician GroupComment on above:Order Comment: Reason for Exam Wellness examination;Screening for metabolic disorder;ScreenPerformed By: #### TSH3 wRFLX, CMP, CBC #### [place] [address] USAEosinophils (Bld) [#/Vol]0.1 10*3/uLNormal0.0-0.45The [facility] Physician GroupComment on above:Order Comment: Reason for Exam Wellness examination;Screening for metabolic disorder;ScreenPerformed By: #### TSH3 wRFLX, CMP, CBC #### [place] [address] USAEosinophils/100 WBC (Bld)2.7 %Normal.The [facility] Physician GroupComment on above:Order Comment: Reason for Exam Wellness examination;Screening for metabolic disorder;ScreenPerformed By: #### TSH3 wRFLX, CMP, CBC #### [place] [address] USAErythrocyte distribution width (RBC) [Ratio]15.2 %Normal 11.9-15.3The [facility] Physician GroupComment on above:Order Comment: Reason for Exam Wellness examination;Screening for metabolic disorder;ScreenPerformed By: #### TSH3 wRFLX, CMP, CBC #### [place] [address] USAHematocrit (Bld) [Volume fraction]39.5 %Lirwvr05.0-46.4The [facility] Physician GroupComment on above:Order Comment: Reason for Exam Wellness examination;Screening for metabolic disorder;ScreenPerformed By: #### TSH3 wRFLX, CMP, CBC #### [facility] [address] [id number] USAHemoglobin (Bld) [Mass/Vol]13.3 g/nISveffr23.8-15.4The [facility] Physician GroupComment on above:Order Comment: Reason for Exam Wellness examination;Screening for metabolic disorder;ScreenPerformed By: #### TSH3 wRFLX, CMP, CBC #### [facility] [address] [place] [address] USALymphocytes (Bld) [#/Vol]1.4 10*3/uLNormal1.00-4.8The [facility] Physician GroupComment on above:Order Comment: Reason for Exam Wellness examination;Screening for metabolic disorder;ScreenPerformed By: #### TSH3 wRFLX, CMP, CBC #### [facility] [address] [place] [address] USALymphocytes/100 WBC (Bld)35.6 %Normal.The [facility] Physician GroupComment on above:Order Comment: Reason for Exam Wellness examination;Screening for metabolic disorder;ScreenPerformed By: #### TSH3 wRFLX, CMP, CBC #### [facility] [address] [place] [address] USAMCH (RBC) [Entitic mass]28.5 njJrddun41.7-34.3The [facility] Physician GroupComment on above:Order Comment: Reason for Exam Wellness examination;Screening for metabolic disorder;ScreenPerformed By: #### TSH3 wRFLX, CMP, CBC #### [facility] [address] [place] [address] USAMCV (RBC) [Entitic vol]85.1 pWNxbuzv15-059Brs [facility] Physician GroupComment on above:Order Comment: Reason for Exam Wellness examination;Screening for metabolic disorder;ScreenPerformed By: #### TSH3 wRFLX, CMP, CBC #### [facility] [address] [place] [address] USAMean Corpuscular HGB Conc33.5 g/dYMzixey27.0-35.0The [facility] Physician GroupComment on above:Order Comment: Reason for Exam Wellness examination;Screening for metabolic disorder;ScreenPerformed By: #### TSH3 wRFLX, CMP, CBC #### [facility] [address] [place] [address] USAMonocytes (Bld) [#/Vol]0.2 10*3/uLNormal0.0-0.8The [facility] Physician GroupComment on above:Order Comment: Reason for Exam Wellness examination;Screening for metabolic disorder;ScreenPerformed By: #### TSH3 wRFLX, CMP, CBC #### [place] [address] USAMonocytes/100 WBC (Bld)5.3 %Normal.The [facility] Physician GroupComment on above:Order Comment: Reason for Exam Wellness examination;Screening for metabolic disorder;ScreenPerformed By: #### TSH3 wRFLX, CMP, CBC #### [place] [address] USANeutrophils (Bld) [#/Vol]2.2 10*3/uLNormal1.8-7.7The [facility] Physician GroupComment on above:Order Comment: Reason for Exam Wellness examination;Screening for metabolic disorder;ScreenPerformed By: #### TSH3 wRFLX, CMP, CBC #### [place] [address] USANeutrophils/100 WBC (Bld)56.0 %Normal.[facility] Physician GroupComment on above:Order Comment: Reason for Exam Wellness examination;Screening for metabolic disorder;ScreenPerformed By: #### TSH3 wRFLX, CMP, CBC #### [facility] [address] [place] [address] USANRBC%0.3 /100{WBC}Normal0-0.5[facility] Comment on above:Order Comment: Reason for Exam Wellness examination;Screening for metabolic disorder;ScreenPerformed By: #### TSH3 wRFLX, CMP, CBC #### [place] [address] USAPlatelet mean volume (Bld) [Entitic vol]9.4 fLNormal 6.3-10.7[facility] Physician GroupComment on above:Order Comment: Reason for Exam Wellness examination;Screening for metabolic disorder;ScreenPerformed By: #### TSH3 wRFLX, CMP, CBC #### [facility] [address] [place] [address] USAPlatelets (Bld) [#/Vol]185 10*3/[id number] [facility] Physician GroupComment on above:Order Comment: Reason for Exam Wellness examination;Screening for metabolic disorder;ScreenPerformed By: #### TSH3 wRFLX, CMP, CBC #### [facility] [address] [place] [address] USARBC (Bld) [#/Vol]4.65 10*6/uLNormal3.60-5.00[facility] Physician GroupComment on above:Order Comment: Reason for Exam Wellness examination;Screening for metabolic disorder;ScreenPerformed By: #### TSH3 wRFLX, CMP, CBC #### [facility] [address] [place] [address] USAWBC (Bld) [#/Vol]3.9 10*3/uLNormal3.8-11.6[facility] Physician GroupComment on above:Order Comment: Reason for Exam Wellness examination;Screening for metabolic disorder;ScreenPerformed By: #### TSH3 wRFLX, CMP, CBC #### [facility] [address] [place] [id number] USAComprehensive Metabolic Panelon [id number] [Mass/Vol]4.8 g/dLNormal3.5-5.7[facility] Physician GroupComment on above: Order Comment: Reason for Exam Wellness examination;Screening for metabolic disorder;ScreenPerformed By: #### TSH3 wRFLX, CMP, CBC #### [facility] [address] [id number] USAAlbumin/Globulin [Mass ratio]1.9 {ratio}NormalThe [facility] Providence Physician GroupComment on above:Order Comment: Reason for Exam Wellness examination;Screening for metabolic disorder;ScreenPerformed By: #### TSH3 wRFLX, CMP, CBC #### [facility] [address] [place] [address] USAALP [Catalytic activity/Vol]60 U/TGehuer08-794Inb [facility] Physician GroupComment on above:Order Comment: Reason for Exam Wellness examination;Screening for metabolic disorder;ScreenPerformed By: #### TSH3 wRFLX, CMP, CBC #### [facility] [address] [id number] USAALT [Catalytic activity/Vol]13 U/LNormal7-52The [facility] Physician GroupComment on above:Order Comment: Reason for Exam Wellness examination;Screening for metabolic disorder;ScreenPerformed By: #### TSH3 wRFLX, CMP, CBC #### [facility] [address] [place] [address] USAAnion gap [Moles/Vol]9.8 mmol/LNormal6.0-15.0The [facility] Physician GroupComment on above:Order Comment: Reason for Exam Wellness examination;Screening for metabolic disorder;ScreenPerformed By: #### TSH3 wRFLX, CMP, CBC #### [facility] [address] [place] [address] USAAST [Catalytic activity/Vol]18 U/ZFhgqxs49-26Wdz [facility] Physician GroupComment on above:Order Comment: Reason for Exam Wellness examination;Screening for metabolic disorder;ScreenPerformed By: #### TSH3 wRFLX, CMP, CBC #### [facility] [address] [id number] USABilirubin [Mass/Vol]0.5 mg/dLNormal0.3-1.0The [facility] Physician GroupComment on above:Order Comment: Reason for Exam Wellness examination;Screening for metabolic disorder;ScreenPerformed By: #### TSH3 wRFLX, CMP, CBC #### [facility] [address] [id number] USACalcium [Mass/Vol]9.5 mg/dLNormal8.6-10.3The [facility] Physician GroupComment on above:Order Comment: Reason for Exam Wellness examination;Screening for metabolic disorder;ScreenPerformed By: #### TSH3 CieloX CMP, CBC #### [facility] [address] [place] [address] USAChloride [Moles/Vol]107 mmol/BYcfflh68-292Pgr [facility] Physician GroupComment on above:Order Comment: Reason for Exam Wellness examination;Screening for metabolic disorder;ScreenPerformed By: #### TSH3 CieloX CMP, CBC #### [facility] [address] [place] [address] USACO2 [Moles/Vol]27.7 mmol/NJkrpfj68.0-31.0The [facility] Physician GroupComment on above:Order Comment: Reason for Exam Wellness examination;Screening for metabolic disorder;ScreenPerformed By: #### CHANDRA3 Emili CMP, CBC #### [facility] [address] [place] [address] USACreatinine [Mass/Vol]0.74 mg/dLNormal0.60-1.20The [facility] Physician GroupComment on above:Order Comment: Reason for Exam Wellness examination;Screening for metabolic disorder;ScreenPerformed By: #### TSH3 SHERRY Mock, CBC #### [facility] [address] [id number] USAGFR/1.73 sq M.predicted MDRD (S/P/Bld) [Vol rate/Area] mL/min/{1.73_m2}NormalThe [facility] Providence Physician GroupComment on above:Order Comment: Reason for Exam Wellness examination;Screening for metabolic disorder;ScreenPerformed By: #### TSH3 Emili CMP, CBC #### [facility] [address] [place] [address] USAGlobulin (S) [Mass/Vol]2.5 g/dLNormalThe [facility] Physician GroupComment on above:Order Comment: Reason for Exam Wellness examination;Screening for metabolic disorder;ScreenPerformed By: #### TSH3 CourtneyFLX, CMP, CBC #### [facility] [address] [place] [address] USAGlucose [Mass/Vol]85 mg/cXKpaosa10-329Afv [facility] Physician GroupComment on above:Order Comment: Reason for Exam Wellness examination;Screening for metabolic disorder;ScreenResult Comment: Random Glucose Reference Range is dependent on time and content of last meal. Glucose of more than 200 mg/dL in a nonstressed, ambulatory subject supports the diagnosis of Diabetes Mellitus. ADA recommended reference rangePerformed By: #### TSH3 wRFLX, CMP, CBC #### [facility] [address] [place] [address] USAPotassium [Moles/Vol]4.5 mmol/LNormal3.5-5.1The [facility] Physician GroupComment on above:Order Comment: Reason for Exam Wellness examination;Screening for metabolic disorder;ScreenPerformed By: #### TSH3 CourtneyFLX CMP, CBC #### [place] [address] USAProtein [Mass/Vol]7.3 g/dLNormal6.4-8.9The [facility] Physician GroupComment on above:Order Comment: Reason for Exam Wellness examination;Screening for metabolic disorder;ScreenPerformed By: #### TSH3 wRFLX CMP, CBC #### [place] [address] USASodium [Moles/Vol]140 mmol/NXxxbsk808-458Myj [facility] Physician GroupComment on above:Order Comment: Reason for Exam Wellness examination;Screening for metabolic disorder;ScreenPerformed By: #### TSH3 CourtneyFLX, CMP, CBC #### [place] [address] USAUrea nitrogen [Mass/Vol]13 mg/dLNormal7-25The [facility] Physician GroupComment on above:Order Comment: Reason for Exam Wellness examination;Screening for metabolic disorder;ScreenPerformed By: #### TSH3 wRFLX, CMP, CBC #### [place] [address] USACreatinine [Mass/volume] in Serum or PlasmaOrdered By: Mishel Dimas on 86-99-0095Soaozizzfz [Mass/Vol]0.74 mg/dL0.60-1.20[facility] HospitalEosinophils Auto (Bld) [#/Vol]Ordered By: Mishel Dimas on 36-88-7835Qitjesotpkf (Bld) [#/Vol]0.1 10*3/uL0.0-0.45[facility] HospitalEosinophils/100 WBC Auto (Bld)Ordered By: Mishel Dimas on 99-38-9714Ixyriaqymob/100 WBC (Bld)2.7 %.[facility] HospitalErythrocyte distribution width Auto (RBC) [Ratio]Ordered By: Mishel Dimas on 48-87-5255Zunifxpljjj distribution width (RBC) [Ratio]15.2 % 11.9-15.3FSelect Medical Specialty Hospital - ColumbusGlobulin Calc (S) [Mass/Vol]Ordered By: Mishel Dimas on 20-47-1868Ahzrmxcq (S) [Mass/Vol]2.5 g/dLSt. John Of God HospitalGlucose [Mass/volume] in Serum or PlasmaOrdered By: Mishel Dimas on 03-73-0988Gnsegzn [Mass/Vol]85 mg/hQ20-911MyirxnflkSt. John Of God HospitalComment on above:ADA recommended reference rangeRandom Glucose Reference Range is dependent on time and content of last meal. Glucose of more than 200 mg/dL in a nonstressed, ambulatory subject supports the diagnosisof Diabetes Mellitus.Hematocrit Auto (Bld) [Volume fraction]Ordered By: Mishel Dimas on 95-70-9404Pxgfcyjhaw (Bld) [Volume fraction]39.5 %34.0-46.4 [facility] HospitalHemoglobin [Mass/volume] in BloodOrdered By: Mishel Dimas on 34-01-4498Jkdwhzkuwg (Bld) [Mass/Vol]13.3 g/dL11.8-15.4 [facility] HospitalLeukocytes [#/volume] corrected for nucleated erythrocytes in Blood by Automated counOrdered By: Mishel Dimas on 46-81-3769YTB corrected for nucl RBC Auto (Bld) [#/Vol]3.9 10*3/uL3.8-11.6 [facility] HospitalLymphocytes Auto (Bld) [#/Vol]Ordered By: Mishel Dimas on 53-57-9012Wjbibrzuwdj (Bld) [#/Vol]1.4 10*3/uL1.00-4.8 [facility] HospitalLymphocytes/100 WBC Auto (Bld)Ordered By: Mishel Dimas on 99-54-0810Yajejusavtt/100 WBC (Bld)35.6 %.[facility] SystemH Auto (RBC) [Entitic mass]Ordered By: Mishel Dimas on 83-55-7569IGV (RBC) [Entitic mass]28.5 pg24.7-34.3FSelect Medical Specialty Hospital - ColumbusMCHC Auto (RBC) [Mass/Vol]Ordered By: Mishel Dimas on 77-34-7402JFZN (RBC) [Mass/Vol]33.5 g/dL32.0-35.0[facility] HospitalMCV Auto (RBC) [Entitic vol]Ordered By: Mishel Dimas on 29-06-2013GLY (RBC) [Entitic vol]85.1 qY48-470OprxagfflSt. John Of God HospitalMonocytes Auto (Bld) [#/Vol]Ordered By: Mishel Dimas on 28-18-6658Wbchqatfx (Bld) [#/Vol] 0.2 10*3/uL0.0-0.8[facility] HospitalMonocytes/100 WBC Auto (Bld) Ordered By: Mishel Dimas on 79-74-8927Vfkcuhrsr/100 WBC (Bld)5.[address] [facility] HospitalNeutrophils Auto (Bld) [#/Vol]Ordered By: Mishel Dimas on 13-95-7858Zmwizymtrya (Bld) [#/Vol]2.2 10*3/uL1.8-7.7 [facility] HospitalNeutrophils/100 WBC Auto (Bld)Ordered By: Mishel Dimas on 88-65-9703Cpfmccumoqq/100 WBC (Bld)56.0 %.[facility] HospitalNo Panel InformationOrdered By: Mishel Dimas on 44-22-8206Ddbdiirjt GFR (CKD-EPI)> 60.0 mL/MinSt. John Of God Hospital Pharmacy Creatinine Clearance (ChemN/AFSelect Medical Specialty Hospital - ColumbusNucleated erythrocytes [Presence] in Blood by Automated countOrdered By: Mishel Dimas on 12-19-2471Qbxjgvfgt RBC Auto Ql (Bld)0.3 /100{WBC}0-0.5FSelect Medical Specialty Hospital - ColumbusPlatelet mean volume Auto (Bld) [Entitic vol]Ordered By: Mishel Dimas on 94-46-1782Qjkzfkqu mean volume (Bld) [Entitic vol]9.4 fL 6.3-10.7FSelect Medical Specialty Hospital - ColumbusPlatelets Auto (Bld) [#/Vol]Ordered By: Mishel Dimas on 61-51-1296Osglsvlmk (Bld) [#/Vol]185 10*3/gU879-397 [facility] HospitalPotassium [Moles/volume] in Serum or Plasma Ordered By: Mishel Dimas on 97-36-4629Tmfqygpuv [Moles/Vol]4.5 mmol/L 3.5-5.1FSelect Medical Specialty Hospital - ColumbusProtein [Mass/volume] in Serum or Plasma Ordered By: Mishel Dimas on 44-94-8252Xbswsxa [Mass/Vol]7.3 g/dL6.4-8.9 [facility] HospitalRBC Auto (Bld) [#/Vol]Ordered By: Mishel Dimas on 94-79-9845HLJ (Bld) [#/Vol]4.65 10*6/uL3.60-5.00ProMedica Memorial Hospitalerum or plasma albumin/globulin mass ratioOrdered By: Mishel Dimas on 69-63-7467Kluvwhp/Globulin [Mass ratio]1.9 {ratio}ProMedica Memorial Hospitalerum or plasma anion gap determinationOrdered By: Mishel Dimas on 90-29-5092Rsqfc gap [Moles/Vol]9.8 mmol/L6.0-15.0ProMedica Memorial Hospitalodium [Moles/volume] in Serum or PlasmaOrdered By: Mishel Dimas on 07-91-1922Pyuunc [Moles/Vol]140 mmol/E166-933UgntuladrSt. John Of God HospitalThyroid Stim Hormone w/Rflxon 10-15-0403Jvdxlsd Stim Hormone w/Rflx1.38 u[iU]/mLNormal0.45-5.33The [facility] Physician GroupComment on above:Order Comment: Reason for Exam Wellness examination;Screening for metabolic disorder;ScreenResult Comment: PERFORMED BY: [facility] [address] [id number] PATHOLOGIST SOIL TESTER ELYSE WHIPPLE M.D.Performed By: #### TSH3 wRFLX, CMP, CBC #### [facility] [address] [place] [address] USAThyrotropin [Units/volume] in Serum or PlasmaOrdered By: Mishel Dimas on 42-54-8486OEM Qn1.38 m[IU]/L0.45-5.33[facility]. [facility] God HospitalUrea nitrogen [Mass/volume] in Serum or PlasmaOrdered By: Mishel Dimas on 22-69-2749Bjzh nitrogen [Mass/Vol]13 mg/dL04-22St. [facility] God HospitalWBC Auto (Bld) [#/Vol]Ordered By: Mishel Dimas on 03-26-2023 WBC (Bld) [#/Vol]3.9 10*3/uL3.8-11.6FSelect Medical Specialty Hospital - ColumbusCoding Summaryon 25-10-6595Neeirb SummaryHTMLBase 64 NdjcyuaeJEo4dKl+PGhlYWQ+RD6FLQGyY58xdAOciS5VH6xPOJ0DLGQOMLQYKU3VAG2soEV5XKneC3Sa biAv [file] OiB (more content not included)...NormalSamaritan North Health Centeruder HospitalCoding SummaryHTMLBase 64 IutesadoAPu6mJp+PGhlYWQ+FF2IYREjI03fbPJznO3HR5sOZY4DSRWBIMSKJX1QRN2vlKH1ZBucH9Sf biAv [file] b2x (more content not included)...[facility] SystemED Clinical Summaryon 39-22-4901LS Clinical [facility] - Emergency Department [address] [place] [address] ED Clinical Summary PERSON INFORMATION Name: JOSELIN VALENZUELA Age: 16 Years Sex: FEMALE : 2005 MRN: Acct#: Visit Reason: Chest pain; CHEST PAIN, HEADACHE Arrival: 07/19/2022 20:06:01 Discharge: 07/19/2022 22:07:00 LOS: 000 02:01 Check In: 07/19/2022 20:06:01 Checkout:07/19/2022 22:07:00 Address: [address] [place] [address] PCP: MISHEL DIMAS PROVIDER INFORMATION Provider Role [...] chest pain, desc 'burning that comes up' DeniesSOB or sweats. Denies med hx other than [...] symptoms, in the last several days and e specially today, noted throughout the day with normal activity. [place], intermittently. Patient had no other treatment prior to arrival. She related that she had heartburn when she was about 2 and half years ago. She stated that symptoms were moderate with she did not have to take anything for those at the time. She indicatedthat heartburn symptoms and this pain is the [...] Medication Allergies. Medications: (Selected) Documented Medications Documented [facility] Prescription: 0 Refill(s) ibuprofen: 0 Refill(s). Past Medical/ Family/ Social History Medical history: No active or resolved past medical history items have been selected or recorded., Reviewed as documented in chart. Surgical history: No active procedure history items have been selected or recorded., Reviewed as documented in chart,Adenoids. Family history: No family history items have [...] in chart. Problem lis (more content not included)...[facility] SystemED Patient Summaryon 22-13-4511SG [facility] [address] [place] [address] PATIENT DISCHARGE INSTRUCTIONS Patient Information Name: JOSELIN VALENZUELA Age: 16 Years Date of : 2005 Reason For Visit: Chest pain; CHEST PAIN, HEADACHE Arrival Time: 07/19/2022 20:06:01 Primary Care Physician: MISHEL DIMAS Attending Physician: Ahmet Moreno DO Comment: Visit Diagnosis: Diagnoses This Visit Abdominal pain, epigastric (R10.13) Acute chest pain (R07.9) Chest pain (68242528) Elevated blood pressure reading (R03.0) The Pharmacy at [facility] is open Friday through Friday from 9A to 6P and Friday and Friday from 9A to 5P Prescription Information: If you have been given a prescription for narcotics, seek immediate medical attention if you have any difficulty breathing or any sudden status changes such as confusion andsleepiness. If you or anyone you know is experiencing suicidal thoughts, mental health, alcohol and/or drug addiction problems; contact the [facility] 21/04 Crisis Hotline -Text 5QAEV xr [phone]. If you received any narcotics, sedation, or [...] legal documents With: Address: When: MISHEL DIMAS [address] [place] [address] Business (1) Within 3 to 5 days [...] you received today in the [facility] Emergency Department were for an urgent problem and are not intended as complete care. It is important for you to follow up with a doctor, nurse practitioner, or physician?s assistant broker for ongoing care. If your symptoms become worse or you donot improve as expected and you are unable [...] so we can reach you if necessary. [facility] has provided you with a complete list of medications post discharge. Please inform your theatre professor/provider of your visit and for further instruction on these medications. Any specific questions regarding your chronic medications and dosages should be discussed with your primary care physician(s) and/or pharmacist. New Medications [id number], [address], [place] [id number], [phone] famotidine (famotidine 20 mg oral tablet) 1 [...] Rate: 70 bpm Per (more content not included)...[facility]ita Health SystemProess Note - Nurseon 62-54-2411Yivkpuai Note - NursePt provided with both written and verbal discharge instructions as well as follow up information. Pt verbalizes understanding and denies further questions or needs. Pt changes into clothing independently and ambulates upon discharge without issues. [Electronically Signed on: 07/19/2022 22:06 EDT] Martha Almaguer RN [Verified on: 07/19/2022 22:06 EDT] Martha Almaguer RN [facility].Auto Diff 1on 39-84-3474Kxmd [place] %8 %Plains149 Fitzpatrick StreetComment on above:Performed By: #### [id number], [id number], 81740834, 0698128280, 6777989, 5669539, 8515321316, [id number] #### [facility] ([facility]) [address] [place], [place] [address]Yput Abs#0.0 k90Aerfhv1.0-0.2Mohio[facility] doctors hospital HospitalComment on above:Performed By: #### [id number], 9636245174, 69977695, 3731585146, 3532642, 4614957, 8510358478, 3487387748 #### [facility] (DEFAULT) [address] [place] [address] 23063Ybxscjbzt/100 WBC (Bld)0.2 %Normal0.2-2.0[facility] Comment on above:Performed By: #### [id number], 3204940728, 40115245, 2595232606, 6706843, 2579605, 0560984506, 6055050274 #### [facility] (DEFAULT) [address] [place] [address] 65455Uij Abs#0.1 r79Hueyrx6.0-0.4[facility] HospitalComment on above:Performed By: #### [id number], 6727125795, 02590061, 4904482525, 0755637, 6810634, 3452733841, 2851892072 #### [facility] (DEFAULT) [address] [place] [address] 47358Juwdkdizfmw/100 WBC (Bld)1.8 %Normal0.9-4.0[facility] HospitalComment on above:Performed By: #### [id number], 9167267885, 66087169, 2356519724, 9565118, 1122530, 0110603705, 2770832635 #### [facility] (DEFAULT) [address] [place] [address] 16361Lvgrs Abs#2.5 s51Eusreh9.3-2.9[facility] HospitalComment on above:Performed By: #### [id number], 6979499587, 77426261, 5419905651, 5041092, 4864066, 8547942562, 8198386449 #### [facility] (DEFAULT) [address] [place] [address] 21014Znuizeaadvp/100 WBC (Bld)44 %Ldinwb29-74Cfdhvjhp Hospital Comment on above:Performed By: #### [id number], 1077502076, 48759006, 8069219338, 0215973, 3487113, 0909751473, 6381580171 #### [facility] (DEFAULT) [address] [place] [address] 24667Ouph Abs#0.4 u32Zqtxtw8.0-0.8[facility] HospitalComment on above:Performed By: #### [id number], 3915921557, 13075347, 8700043401, 6943681, 0329124, 6167610507, 0735442568 #### [facility] (DEFAULT) [address] [place] [address] 79934Tfer Abs#2.6 v53Accybu7.5-9.2[facility] doctors hospital HospitalComment on above:Performed By: #### [id number], 8083134958, 39042579, 0519566252, 0901810, 2117449, 7614151928, 0929052001 #### [facility] (DEFAULT) [address] [place] [address] 80480Xhnguindobw/100 WBC (Bld)47 %Ahuzeh52-94Duorzyfa Hospital Comment on above:Performed By: #### [id number], 7541715399, 25618544, 6989361861, 3553550, 6847091, 3569207691, 0645003675 #### [facility] (DEFAULT) [address] [place] [address] 465[address]UNO w/ Auto Diffon 68-93-5176Pgmjppdbsrx distribution width (RBC) [Ratio]14.6 %Eotpxo14.5-15.0[facility] HospitalComment on above: Performed By: #### [id number], 6020741266, 06499167, 0966749704, 3977488, 0386864, 1899060102, 4174168287 #### [facility] (DEFAULT) [address] [place] [address] 19954Gpojwvntoc (Bld) [Volume fraction]40.2 %Majjsz40.7-40.4 [facility] HospitalComment on above:Performed By: #### [id number], 1930936423, 38539765, 3672711664, 0287568, 1755408, 5999865279, 3431262209 #### [facility] (DEFAULT) [address] [place] [address] 39567Sgyaiclpfi (Bld) [Mass/Vol]13.0 g/xFFblbto68.3-15.9 [facility] HospitalComment on above:Performed By: #### [id number], 3695423695, 79463865, 8465585322, 5742662, 6698425, 2054095255, 9388885851 #### [facility] (DEFAULT) [address] [place] [address] 80309Awaub WBC5.7 l76Vxvdyad Interpretation CodeMercy Health Clermont HospitalComment on above:Performed By: #### [id number], 6307837297, 93376850, 8790309203, 1091979, 6363716, 0395096912, 8708377119 #### [facility] (DEFAULT) [address] [place] [address] 96310Hrn Diff?AutoNormalMercy Health Clermont HospitalComment on above: Performed By: #### [id number], 3946881942, 51610782, 8553280757, 2216394, 0795318, 1458220371, 0973366348 #### [facility] (DEFAULT) [address] [place] [address] 43757NGR (RBC) [Entitic mass]27 etLkkgwv35-31Jstmjpgm Hospital Comment on above:Performed By: #### [id number], 7427105367, 27165657, 6434973652, 9856225, 1258160, 0748625160, 0150798008 #### [facility] (DEFAULT) [address] [place] [address] 25734SICQ (RBC) [Mass/Vol]32 g/lHTtowdi50-75Kpqokymc Hospital Comment on above:Performed By: #### [id number], 3491980891, 22491042, 6701469431, 9102270, 6736541, 5176998769, 1263093566 #### [facility] (DEFAULT) [address] [place] [address] 59997SBV (RBC) [Entitic vol]84 oYGryesi55-067Ujhpxzwd Hospital Comment on above:Performed By: #### [id number], 5725179394, 81241945, 6103103840, 0419486, 4125600, 0568254479, 9365821981 #### [facility] (DEFAULT) [address] [place] [address] 32316Ruksxzun549 w14Qlnfcx942-813Rjlbbqzz HospitalComment on above:Performed By: #### [id number], 5092877817, 32781032, 1878293226, 9286195, 7554076, 8562778737, 0643733183 #### [facility] (DEFAULT) [address] [place] [address] 89022Ioguwtyo mean volume (Bld) [Entitic vol]10.7 fLHigh 6.3-10.2[facility] HospitalComment on above:Performed By: #### [id number], 8335912875, 54497182, 6463351081, 6274251, 7784631, 6690362645, 9298640261 #### [facility] (DEFAULT) [address] [place] [address] 64563UDZ8.78 i49Obmjwk2.70-5.30[facility] HospitalComment on above:Performed By: #### [id number], 6863420337, 32577230, 7565308493, 9156006, 8696323, 6847854562, 6579309134 #### [facility] (DEFAULT) [address] [place] [address] 53909LDN8.7 x77Tvymct4.5-10.5[facility] HospitalComment on above: Performed By: #### [id number], 0751575487, 99871019, 9529904252, 5246650, 8028703, 8591414631, 9198303308 #### [facility] (DEFAULT) [address] [place] [address] 30343NTI Standardon 25-30-9838gZYS Non AA>60Invalid Interpretation CodeSumma Health HospitalComment on above:Performed By: #### [id number], 2088218455, 54300485, 1177633870, 2186916, 7605429, 2539370041, 3419015017 #### [facility] (DEFAULT) [address] [place] [address] 58259uIZE AA>60Invalid Interpretation [facility] Comment on above:Result Comment: Chronic Kidney disease could be indicated at eGFRs of less than 60 ml/min/1.73m2. Kidney Failure is indicated at less than 15 ml/min/1.40i2Hspvjkvpg By: #### [id number], 8799748011, 72948710, 5507531813, 5220730, 2171381, 3307600603, 6200848618 #### [facility] (DEFAULT) [address] [place] [address] 93519Zrgkhfz [Mass/Vol]4.5 g/dLNormal3.5-5.0[facility] Comment on above:Performed By: #### [id number], 1052448154, 19142697, 7401643138, 9420295, 6651990, 4939761770, 9463171016 #### [facility] (DEFAULT) [address] [place] [address] 86603Pxgvqgl/Globulin [Mass ratio]1.3 {ratio}Low1.4-2.6MMercy Health Perrysburg HospitalComment on above:Performed By: #### [id number], 9612559170, 02467308, 3739631276, 1343659, 2163490, 0881609866, 9865929625 #### [facility] (DEFAULT) [address] [place] [address] 49716Cxm Phos63 IU/BJonrxz96-04Twgvqloj HospitalComment on above:Performed By: #### [id number], 1412654441, 93192996, 0408629460, 0840222, 1188870, 3239903987, 4594950670 #### [facility] (DEFAULT) [address] [place] [address] 52296HYP [Catalytic activity/Vol]15.0 U/LNormal8.0-29.0[facility] HospitalComment on above:Performed By: #### [id number], 8284627576, 96111491, 8870611807, 1663350, 1237128, 2341733755, 6756509566 #### [facility] (DEFAULT) [address] [place] [address] 92195Bafrh gap [Moles/Vol]12.0 mmol/LNormal5.0-19.0[facility] HospitalComment on above:Performed By: #### [id number], 9619617483, 77208812, 5386701724, 1607443, 4349544, 2963578674, 5174104981 #### [facility] (DEFAULT) [address] [place] [address] 38476KGM [Catalytic activity/Vol]23 U/YAykiiv75-19Yepmxuwk HospitalComment on above:Performed By: #### [id number], 3956526890, 91073475, 8281441304, [id number], 8892619, [id number], [id number] #### [facility] (DEFAULT) [address] [place] [address] 62525Iqpl Total0.7 mg/dLNormal0.0-2.0[facility] HospitalComment on above:Performed By: #### [id number], [id number], 82811880, 5710462152, 9045905, 8957602, 3954641022, [id number] #### [facility] (DEFAULT) [address] [place] [address] 51983Abvrlpf [Mass/Vol]9.2 mg/dLNormal8.9-10.3[facility] Comment on above:Performed By: #### [id number], [id number], 65318988, 2766227442, 4714980, 2297989, 9383036584, 7404698484 #### [facility] (DEFAULT) [address] [place] [address] 91204Cseexzhu [Moles/Vol]106 mmol/UNhfrzl189-934Ynpmlptm HospitalComment on above:Performed By: #### [id number], 4777691075, 06176259, 0467299929, 1821413, 2402329, 0874380242, 8668800922 #### [facility] (DEFAULT) [address] [place] [address] 25218FA9 [Moles/Vol]27 mmol/FLxtwcz02-00[facility] Comment on above:Performed By: #### [id number], 8094658434, 99510068, 1898534281, 6299581, 2872101, 5051372492, [id number] #### [facility] (DEFAULT) [address] [place] [address] 71372Xvdkmcvskr [Mass/Vol]0.72 mg/dLNormal0.30-1.00[facility] HospitalComment on above:Performed By: #### [id number], [id number], 76496539, 6940903939, 1308541, 0064411, 1144327191, 6457454987 #### [facility] (DEFAULT) [address] [place] [address] 78020Pnietnpx (S) [Mass/Vol]3.5 g/dLNormal1.5-4.3[facility] HospitalComment on above:Performed By: #### [id number], 8251708024, 51591092, 4314572221, 2927271, 4534662, 3946329717, 5060436062 #### [facility] (DEFAULT) [address] [place] [address] 48191Czxqslg [Mass/Vol]101.0 mg/bVFmcfqe79.0-144.0[facility] HospitalComment on above:Performed By: #### [id number], 7539417756, 25600570, 7161908347, 3692514, 6520251, 1620597516, 8243641335 #### [facility] (DEFAULT) [address] [place] [address] 92338Mndhsxzctj508 mOsm/LInvalid Interpretation CodeSumma Health HospitalComment on above:Performed By: #### [id number], [id number], 80523485, 8566885465, 6776063, 0495289, 6842493511, 3676971201 #### [facility] (DEFAULT) [address] [place] [address] 69138Cvvpdgexd [Moles/Vol]3.8 mmol/LNormal3.6-5.1[facility] HospitalComment on above:Performed By: #### [id number], 0203426744, 41755152, 7017923057, 0235034, 9024060, 2011983369, 2544007915 #### [facility] (DEFAULT) [address] [place] [address] 64601Usogbjk [Mass/Vol]8.0 g/dLNormal6.1-8.0[facility] Comment on above:Performed By: #### [id number], 0363999995, 10065199, 3355226075, 2183180, 7446266, 3089204269, 1090069436 #### [facility] (DEFAULT[facility] [address] [place] [address] 27177Ozsvzh [Moles/Vol]141.0 mmol/DJkpewb045.0-144.0[facility] HospitalComment on above:Performed By: #### [id number], 6428331175, 22708380, 4235787873, 9477306, 2000589, 9885483890, 1450229963 #### [facility] (DEFAULT) [address] [place] [address] 50451Rxhb nitrogen [Mass/Vol]11 mg/dLNormal8-26[facility] HospitalComment on above:Performed By: #### [id number], 7258984665, 67802067, 0666185156, 9617996, 1497929, 4920875716, 7031353656 #### [facility] (DEFAULT) [address] [place] [address] 81078Wgft nitrogen/Creatinine [Mass ratio]15.0 mg/mgNormal 4.6-16.2[facility] HospitalComment on above:Performed By: #### [id number], 1670346645, 86739639, 3389301746, 3259487, 9590111, 0937577922, [id number] #### [facility] (DEFAULT) [address] [place] [address] 81961LR Note - Physicianon [id number] Note - Physician Patient: JOSELIN VALENZUELA Age: [...] chest pain, desc 'burning that comes up' DeniesSOB or sweats. Denies med hx other than [...] [place], [place]. Patient had no other treatment prior to arrival. She related that she had heartburn when she was about 2 and half years ago. She stated that symptoms were moderate with she did not have to take anything for those at the time. She indicatedthat heartburn symptoms and this pain is the [...] Medication Allergies. Medications: (Selected) Documented Medications Documented Misc Prescription: 0 Refill(s) ibuprofen: 0 Refill(s). Past Medical/ Family/ Social History Medical history: No active or resolved past medical history items have been selected or recorded., Reviewed as documented in chart. Surgical history: No active procedure history items have been selected or recorded., Reviewed as documented in chart,Adenoids. Family history: No family history items have [...] are intact, normal conjunctiv (more content not included)...NormalMercy Health Clermont HospitalExtra Redon 98-51-9653Dlgw CollectedYes Invalid Interpretation CodeMercy Health Clermont HospitalComment on above:Performed By: #### [id number], [id number], 38121331, 4080979816, 5749429, 2741111, 1366315522, 1481181012 #### [facility] (DEFAULT) [address] [place] [address] 06279Wlpqxbib 15-57-6982Zpqrah Level35.0 IU/KWpncom54.0-51.0 [facility] HospitalComment on above:Performed By: #### [id number], 8109517073, 60452146, 4767112241, 5800675, 9463397, 9188387460, 2875914304 #### [facility] (DEFAULT) [address] [place] [address] 86480Qnslnbafz Test Urine 1on 07-19-2022U PregNegativeNormal [facility] HospitalComment on above:Performed By: #### [id number], [id number] #### [facility] (DEFAULT) [address] [place] [address] 11155O Preg Internal ControlPassNormOhioHealth Pickerington Methodist HospitalComment on above:Performed By: #### [id number], [id number] #### [facility] (DEFAULT) [address] [place] [address] 36174DiL HSon 05-81-6762Wnsulkyv I High Sensitivity3 pg/mL Normal<=15[facility] HospitalComment on above:Result Comment: Male Baseline Delta 1Hr (Note pg/mL=ng/L) <20pg/mL 50-60% >20pg/mL 20% Female Baseline Delta 1Hr <15pg/mL 50-60% >15pg/mL 20% Other Baseline Delta 1Hr <18ng/mL 50-60% >18ng/mL 20% ([place] [employer] Guidelines April 2018)Performed By: #### [id number], 3296341672, 03016617, 6998551158, 1493816, 6084541, 1619186232, 5327444998 #### [facility] (DEFAULT) [address] [place] [address] 22300LV w Micro, if Ind Standardon 65-80-3447Qyrngnzwas UA [facility] Health SystemComment on above:Performed By: #### [id number], 6227628934, 40686701, 4909947200, 0277440, 8185206, 0214528884, 5031066828 #### [facility] (DEFAULT) [address] [place] [address] 18604Ccssk (U)YellowAvita Health SystemComment on above: Performed By: #### [id number], 3458655583, 54508559, 6187368240, 5511641, 6933582, 5967347223, 3092069611 #### [facility] (DEFAULT) [address] [place] [address] 49394Bajjxrp (U) [Mass/Vol][facility] Comment on above:Performed By: #### [id number], 2458679059, 36785030, 6730198542, 0540530, 3627522, 8140436832, 5289526597 #### [facility] (DEFAULT) [address] [place] [address] 18510Ivmuyel Ql (U)[facility] City HospitalComment on above:Performed By: #### [id number], 7565297908, 24316736, 5367767778, 0081246, 2392148, 9688975371, 6237420074 #### [facility] (DEFAULT) [address] [place] [address] 74072Eejun?Not IndicatedInvalid Interpretation CodeMagruder HospitalComment on above:Result Comment: Result created by rule GL_MAGR_ADD_UA_MICRO Result created by rule GL_MAGR_ADD_UA_MICROPerformed By: #### [id number], 4170621849, 16673696, 0554080810, 5394905, 7541469, 8352443809, 2250895158 #### [facility] (DEFAULT) [address] [place] [address] 31928DF BilirubinNegativeNormalMagruder HospitalComment on above:Performed By: #### [id number], 8122732964, 36975610, 7467971110, 4019830, 0005893, 9297520502, 4366970810 #### [facility] (DEFAULT) [address] [place] [address] 72036LP BloodNegativeNormalNEGATIVEMagruder HospitalComment on above:Performed By: #### [id number], 9733546774, 85268708, 6523088148, 8684281, 4779139, 9298046786, 4157615415 #### [facility] (DEFAULT) [address] [place] [address] 35700IA ClarityCLEARNormalCLEARNegrlima city hospital HospitalComment on above:Performed By: #### [id number], 0134522369, 92977515, 5581227894, 8037619, 0124659, 7461892252, 2843820094 #### [facility] (DEFAULT) [address] [place] [address] 06130UV Leuk EstNegativeNormalNEGATIVEMagruder HospitalComment on above:Performed By: #### [id number], 8843870229, 70524778, 6134913741, 7853775, 1456008, 2662246057, 6552457988 #### [facility] (DEFAULT) [address] [place] [address] 31746GI NitriteNegativeNormalNEGATIVEMagruder HospitalComment on above:Performed By: #### [id number], 9575620731, 49910001, 3440545268, 2280448, 7113469, 1768627294, 5241878532 #### [facility] (DEFAULT) [address] [place] [address] 59608UK pH7.3Kxwfss3-4Wherzsxu HospitalComment on above: Performed By: #### [id number], 9310541514, 51960791, 6950843029, 3654509, 4420672, 3688508002, 9909224627 #### [facility] (DEFAULT) [address] [place] [address] 13371QI ProteinNegativeNormalNEGATIVESumma Health HospitalComment on above:Performed By: #### [id number], 0621277515, 26034310, 6943145116, 6189482, 4507380, 9353539572, 1869463918 #### [facility] (DEFAULT) [address] [place] [address] 79131TF Spec Grav1.297Naevtp9.001-1.035[facility] Health HospitalComment on above:Performed By: #### [id number], 0755863653, 77386381, 5057692794, 2339128, 2470514, 1337052506, 2062966659 #### [facility] (DEFAULT) [address] [place] [address] 21773JB Urobilinogen1.0 mg/dLNormal0.2-1.0[facility] Comment on above:Performed By: #### [id number], 1479306315, 57318696, 3854744550, 0366584, 3278593, 7068343447, 8832532533 #### [facility] (DEFAULT) [address] [place] [address] 78205Ddowz SourceClean CatchNormalSumma Health HospitalComment on above:Performed By: #### [id number], 6947255650, 07177502, 6358167723, 7263078, 4770188, 4473367236, 1013502481 #### [facility] ([facility]) [address] [place] [address] Vital Signs Date TimeVital SignValuePerforming YxsorxdblSldxvgnz62-97-4860 08:52-0400Body mass index (BMI) [Ratio]30 kg/f4Ntgtz Viktoria DO Work Phone: [facility] HospitalZntiinscod91-20-2802 08:52-0400Body tqacba15.39 kgCorey Viktoria DO Work Phone: [phone] [place], [place] [address]Ommilctfnc59-20-3703 08:52-0400Diastolic blood qfbatoyr23 mm[Hg]Davin Viktoria DO Work Phone: [phone] HospitalQthwoblspv90-76-3558 08:52-0400Systolic blood vkfdvrgu734 mm[Hg]Davin Viktoria DO Work Phone: [facility] HospitalOzgwnmpbuq49-84-9647 10:22-0400Body mass index (BMI) [Ratio]29.48 kg/z1GcgkolucMargarita Burnett DIRECTOR OF CORPORATE STRATEGY Work Phone: [facility] HospitalMibvegnlec04-98-5364 10:22-0400Body jmtruz09.12 kgMargarita Burnett DIRECTOR OF CORPORATE STRATEGY Work Phone: [facility] HospitalPwslzwocym51-79-6348 10:22-0400Diastolic blood pjosojos76 mm[Hg]Margarita Burnett DIRECTOR OF CORPORATE STRATEGY Work Phone: [facility] HospitalCyrzqhlcvj20-89-3836 10:22-0400Systolic blood jrozfkof212 mm[Hg]Margarita Burnett DIRECTOR OF CORPORATE STRATEGY Work Phone: [facility] HospitalFeacaokiva17-78-9241 09:30-0400Body bwdbuj508.5 cmJennifer Herrera PA Work Phone: [facility] HospitalRzxoicnlvp05-12-3985 09:30-0400Body mass index (BMI) [Ratio]29.56 kg/u3ZeoxhJennifer Herrera PA Work Phone: [phone] Specialty HospitalBmrhnwqxfq65-37-2095 09:30-0400Body kuadsd84.3 kg Jennifer LAU Work Phone: [place] [address]Akxbcqwhru64-83-0996 09:30-0400Diastolic blood vwkgjjyu90 mm[Hg]Jennifer Hemmer PA Work Phone: [facility] HospitalJppzlprusf04-53-6248 09:30-0400Heart rate85 /min Jennifer Hemmer PA Work Phone: [facility] HospitalHsmwpnmoeb54-52-0578 09:30-0400Respiratory rate16 /minJennifer Hemmer PA Work Phone: [facility] HospitalXjmbrnewrm79-10-8981 09:30-1750YaW3% (BldA) [Mass fraction]97 %Jennifer Hemmer PA Work Phone: [facility] HospitalLibuajibco36-83-6421 09:30-0400Systolic blood rmhgyuao184 mm[Hg]Jennifer Hemmer PA Work Phone: [facility] HospitalCymzdsbtrw26-33-6773 09:59-0400Body mass index (BMI) [Ratio]30.62 kg/m2Luba Ellis PA Work Phone: [facility] HospitalWrbjdjxryd92-28-9137 09:59-0400Body aslwfm86.93 kgLuba Ellis PA Work Phone: [facility] HospitalGpvkneoexe86-36-5239 09:59-0400Diastolic blood gtfncikh64 mm[Hg]Luba Corral PA Work Phone: [facility] HospitalJwzskgxtiw94-30-4366 09:59-0400Systolic blood xcvvcrde686 mm[Hg]Luba Corral PA Work Phone: [facility] HospitalDwudrczzmu11-11-7335 14:21-0400Body mass index (BMI) [Ratio]32.7 kg/m2Luba Elmira PA Work Phone: [facility] HospitalYvfkasjoei97-02-2662 14:21-0400Body feczwo59.1 kg Luba Corral PA Work Phone: [facility] HospitalLngempfifq49-44-8003 14:21-0400Diastolic blood ifwxifvs26 mm[Hg]Luba Corral PA Work Phone: [facility] HospitalLwfwembtun10-73-0538 14:21-0400Systolic blood wlnyhuwq153 mm[Hg]Luba Corral PA Work Phone: [facility] HospitalNjpobtlhql69-13-7956 13:13-0400Body mass index (BMI) [Ratio]31.64 kg/m2Luba Liraey PA Work Phone: [facility] HospitalNafvjeqzvu56-47-4469 13:13-0400Body hddote22.47 kgLuba Corral PA Work Phone: [facility] HospitalWqmkqdfekx33-84-5144 13:13-0400Diastolic blood splurdcw21 mm[Hg]Luba Corral PA Work Phone: [facility] HospitalSgewiywddj19-77-3455 13:13-0400Systolic blood vammcduu177 mm[Hg]Luba Corral PA Work Phone: [facility] HospitalHoqmingxqj33-93-9397 16:27-0400Body bdmhit147.5 cmJennifer Hemmer PA Work Phone: [facility] HospitalGehfgeaulq05-57-2987 16:27-0400Body mass index (BMI) [Ratio]31.53 kg/p5Prdpr Hemmer PA Work Phone: [facility] HospitalYolyrgldwx20-75-7571 16:27-0400Body mrlglu11.2 kg Jennifer Hemmer PA Work Phone: [facility] HospitalKsyiktkykg12-06-9893 16:27-0400Diastolic blood ecjyzhba70 mm[Hg]Jennifer Hemmer PA Work Phone: [facility] HospitalIpxoscnefn22-58-8161 16:27-0400Heart rate79 /min Jennifer Hemmer PA Work Phone: [facility] HospitalRkagvgylgk39-16-6307 16:27-0400Respiratory rate16 /minJonatanen Hemmer PA Work Phone: [place] [phone] 16:27-1982QlW5% (BldA) [Mass fraction]99 %Jennifer Hemmer PA Work Phone: [place] [phone] 16:27-0400Systolic blood notcfwtx845 mm[Hg]Jennifer Hemmer PA Work Phone: [facility] HospitalZjafgzeyod56-23-1821 13:37-0400Body mass index (BMI) [Ratio]29.96 kg/m2Luba Corral PA Work Phone: [place] [address]Fuchwpfbba44-82-7998 13:37-0400Body ooerpz51.3 kg Luba Corral PA Work Phone: [place] [address]Nuqxijlgcl78-71-1209 13:37-0400Diastolic blood povlbfbc04 mm[Hg]Luba Corral PA Work Phone: [place] [address]Jvsfxzomsa29-59-5904 13:37-0400Systolic blood jobqaqxj882 mm[Hg]Luba Corral PA Work Phone: [facility] HospitalNncxhcypga2003 10:06-0400Body xyxhff107.5 cmJonatanen Hemmer PA Work Phone: [facility] HospitalPwsxwfjvik61-21-4600 10:06-0400Body mass index (BMI) [Ratio]29.92 kg/k7Rqlwc Hemmer PA Work Phone: [facility] HospitalZvkfqkzgdn19-04-1324 10:06-0400Body .21 kgKaren Hemmer PA Work Phone: [facility] HospitalUgservbbtq66-40-5582 10:06-0400Diastolic blood cgkalpjl10 mm[Hg]Jennifer Hemmer PA Work Phone: [facility] HospitalLijzygqwuc64-65-0908 10:06-0400Heart atbk785 /min Jennifer Hemmer PA Work Phone: [place] [address]Acihuevdwq43-26-8802 10:06-0400Respiratory rate17 /minJonatanen Hemmer PA Work Phone: [place] [phone] 10:06-9969VuC8% (BldA) [Mass fraction]97 %Jennifer Hemmer PA Work Phone: [place] [address]Kpohcgpjpe05-59-9583 10:06-0400Systolic blood eaashbau799 mm[Hg]Jennifer Hemmer PA Work Phone: [place] [address]Feigxddhza04-70-1635 13:42-0400Body mass index (BMI) [Ratio]30.07 kg/o4Arkty Viktoria DO Work Phone: [phone] [place], [place] [address]Pmchkksgav24-65-6746 13:42-0400Body .57 kgCorey Viktoria DO Work Phone: [phone] [place] [address]-24-2024 13:42-0400Diastolic blood yetkwyee36 mm[Hg]Davin Viktoria DO Work Phone: [phone] [place] [address]-24-2024 13:42-0400Systolic blood wbxzvrog853 mm[Hg]Davin Viktoria DO Work Phone: [phone] [place] [address]-16-2024 11:14-0400Body nqvboh858.5 cmCorey Viktoria DO Work Phone: [phone] [place] [address]-16-2024 11:14-0400Body mass index (BMI) [Ratio]29.81 kg/b9Jkvls Viktoria DO Work Phone: [phone] [place] [address]-16-2024 11:14-0400Body qryerw69.94 kgCorey Viktoria DO Work Phone: [phone])[facility] [place] [address]-16-2024 11:14-0400Diastolic blood tpnwxnil11 mm[Hg]Davin Viktoria DO Work Phone: [phone])[facility] [place] [address]-16-2024 11:14-0400Systolic blood lckrithe009 mm[Hg]Davinesequiel Brookso DO Work Phone: [phone])[facility] [place], [place] [address]Gfhruulyyi50-36-3675 12:31-0400Body buqpqu629.48 cmSt[facility]20[facility] 12:31-0400Body mass index (BMI) [Ratio]29.5 kg/f1FdebwmgsrSt. John Of [facility]07-17-2024 12:31-0400Body dqvdhpyabvq64.2 [degF][facility]07-17-2024 12:31-0400Body ywimnp09.25 kgSt. [facility]07-17-2024 12:31-0400Diastolic blood rwemirxd55 mm[Hg][facility]07-17-2024 12:31-0400 Heart sbsy272 /[facility]07-17-2024 12:31-0400 Respiratory rate16 /[facility]07-17-2024 12:31-0400 SaO2% (BldA) [Mass fraction]99 %[facility]07-17-2024 12:31-0400Systolic blood mm[Hg][facility] 04-09-2024 11:23-0400Diastolic blood mm[Hg][facility]07-12-2024 11:23-0400Heart rate74 /[facility] 04-09-2024 11:23-0400Respiratory rate16 /[facility] 04-09-2024 11:23-0039GdG7% (BldA) [Mass fraction]97 %[facility]07-12-2024 11:23-0400Systolic blood offdwwld420 mm[Hg][facility]03-19-2024 13:15-0400Body mass index (BMI) [Ratio]30.12 kg/m[address]03-19-2024 13:15-0400Body pvcybz52.[address]03-19-2024 13:15-0400Diastolic blood mlalpwob28 mm[Hg][address]03-19-2024 13:15-0400Systolic blood mm[Hg][address]02-21-2024 10:31-0500Body mass index (BMI) [Ratio]30.91 [facility]-21-2024 10:31-0500Body bqahztlxufp29.1 [degF][facility]02-21-2024 10:31-0500Body .66 kgC[facility]02-21-2024 10:31-0500Diastolic blood kicnbwqp68 mm[Hg][facility]02-21-2024 10:31-0500 Systolic blood xokllnli410 mm[Hg][facility]07-10-2023 14:30-0400Body .85 kgMattlorena Dimas Other [employer] Other 07-10-2023 14:30-0400Diastolic blood kowdryrh48 mm[Hg] Mishel Dimas Other [employer] Other 07-10-2023 14:30-0400Respiratory rate18 /minMattlorena Dimas Other [employer] Other 07-10-2023 14:30-8201VuE4% (BldA) [Mass fraction]99 % Mishel Dimas Other [employer] Other 07-10-2023 14:30-0400Systolic blood holbvxsq183 mm[Hg] Mishel Dimas Other [employer] Other 11-02-2021 15:30-0400Body jmofrh571.02 cmMattlorena Dimas Other [employer] Other 11-02-2021 15:30-0400Body mass index (BMI) [Ratio] 22.67 kg/e5ZscytyoMishel Dimas Other [employer] Other 11-02-2021 15:30-0400Body xkjkyryvneo26.2 [degF] Mishel Dimas Other [employer] Other 11-02-2021 15:30-0400Body trbfdu09.06 kgMattlorena Dimas Other [employer] Other 11-02-2021 15:30-0400Diastolic blood mm[Hg]Mishel Dimas Other [employer] Other 11-02-2021 15:30-0400Respiratory rate18 /minMattlorena Dimas Other [facility] Other 11-02-2021 15:30-3879EpQ3% (BldA) [Mass fraction]100 % Mishel Dimas Other [facility] Other 11-02-2021 15:30-0400Systolic blood vowjpitw625 mm[Hg] Mishel Dimas Other [facility] Other Encounters Encounter DateEncounter TypeCare ProviderFacilityStart: 07-26-2025 End: 08-25-1427Gooocs flowsheetCorey Viktoria DO Work Phone: [facility] OBGYNStart: 07-26-2025 End: 31-18-5047Lmhkrd flowsheetCorey Viktoria DO Work Phone: [facility] OBGYNStart: 07-26-2025 End: 42-71-5341Rgutpd outpatient visit 15 minutesCorey Viktoria DO Work Phone: [facility]negard OBGYNComment on above:Pre-op examination; Encounter for weight managementStart: 07-26-2025 End: 73-28-4270Unlarrdtmbafq examination doneCorey Viktoria DO Work Phone: [facility] HealthcareStart: 07-26-2025 End: 02-06-1876vqhmkikproBDQJR FAZIONot AvailableStart: 06-28-2025 End: 69-97-7951Gnbgui Ana LAU Work Phone: [facility] MedinceStart: 06-28-2025 End: 52-88-1139Amhtfx flowsShahid LAU Work Phone: [facility] MedinceStart: 06-28-2025 End: 42-57-9117Vtyzcrpj Result EncounteraMrgarita Burnett NP Work Phone: [facility] External Department UnsolicitedStart: 06-28-2025 End: 15-08-9123Nrveph outpatient visit 15 minutesMargarita Burnett NP Work Phone: [facility] OBGYNComment on above:Encounter for weight management; Vaginal dischargeStart: 06-28-2025 End: 98-67-2686Olbsjss encounter statusJennifer LAU Work Phone: [facility] Work Phone: Start: 06-28-2025 End: 83-93-9738Lxaxieye preventive med est patient 18-39 yrsJennifer LAU Work Phone: [facility] Aly Salguero MedinceComment on above:Wellness examination (Primary Dx); Encounter for immunization; Overweight; Menorrhagia with irregular cycle; PCOS (polycystic ovarian syndrome); Iron deficiency anemia due to chronic blood loss; Seasonal allergic rhinitis due to pollen; Deviated septum; S/P adenoidectomy; Recurrent major depressive disorder, in full remission ; Chronic idiopathic constipation; Vitamin D deficiencyStart: 06-28-2025 End: 12-21-3140sewdzblnsnKCBUGLYW EBERLYNot AvailableStart: 05-31-2025 End: 75-56-7971Yxunhf Markie LAU Work Phone: [facility] OBGYNStart: 05-31-2025 End: 37-50-0081Qozgxo Markie LAU Work Phone: [facility] OBGYNStart: 05-31-2025 End: 77-98-1580Afhafokzb Result EncounterGeneric External Data ProviderNOMS External Department UnsolicitedStart: 05-31-2025 End: 78-06-0544Ejqikr outpatient visit 15 minutesLuba LAU Work Phone: [facility] OBGYNComment on above:Encounter for weight managementStart: 05-31-2025 End: 64-01-4437fuicgwnfrsQLY RAMEYNot AvailableStart: 05-02-2025 End: 74-72-7814Ycnnqa outpatient visit 15 minutesLuba LAU Work Phone: [facility] Fern OBGYNComment on above:Medication care plan discussed with patient; Encounter for weight managementStart: 05-02-2025 End: 93-73-9617xdxvbgxrknYRM RAMEYNot AvailableStart: 05-02-2025 End: 99-10-7974Gmixvb flowsheetLuba LAU Work Phone: [facility] OBGYNStart: 05-02-2025 End: 31-97-6517Wfcyry Markie LAU Work Phone: [facility] OBGYNStart: 03-29-2025 End: 92-97-4268Pxuqhp flowsheetLuba LAU Work Phone: [facility] BCP OBStart: 03-29-2025 End: 43-10-7715Ykbzya flowsheetLuba LAU Work Phone: [facility] BCP OBStart: 03-29-2025 End: 07-42-4825Jmyjrgkjx Result EncounterLuba LAU Work Phone: [facility] External Department UnsolicitedStart: 03-29-2025 End: 18-07-4694rcktptwtezERU RAMEYNot AvailableStart: 03-29-2025 End: 00-50-0710Bjuksdz encounter procedureLuba LAU Work Phone: [facility] HealthcareStart: 03-29-2025 End: 66-57-4451Obeuduaa preventive med est patient 18-39 yrsLuba LAU Work Phone: NOMS BCP OBComment on above:Well woman exam with routine gynecological examStart: 03-19-2025 End: 82-22-4355Vjbbhvftq Result EncounterJennifer LAU Work Phone: NOMS External Department UnsolicitedStart: 03-19-2025 End: 56-86-5526Srslyzjci Result EncounterJennifer LAU Work Phone: noms External Department UnsolicitedStart: 01-18-2025 End: 09-05-9278Ugygjb outpatient visit 25 minutesJennifer LAU Work Phone: NOMS CI FMComment on above:Weight gain (Primary Dx); Class 1 obesity without serious comorbidity with body mass index (BMI) of 31.0 to 31.9 in adult, unspecified obesity type; PCOS (polycystic ovarian syndrome); Family history of thyroid disease; Iron deficiency anemia due to chronic blood loss; Other fatigueStart: 01-18-2025 End: 42-77-2694dznohbesxyMVBYZ M HEMMERNot AvailableStart: 01-18-2025 End: 12-01-9049Zitgvk Ana LAU Work Phone: NOMS CI FMStart: 01-18-2025 End: 49-62-2587Vluoex Ana LAU Work Phone: NOMS CI FMStart: 08-20-2024 End: 96-38-8667Ltdjhuczp Result EncounterCorey Viktoria DO Work Phone: NOMS External Department UnsolicitedStart: 08-20-2024 End: 98-33-4639Qwslgxhst Result EncounterCorey Viktoria DO Work Phone: NOMS External Department UnsolicitedStart: 08-13-2024 End: 83-85-9046Foerpvwpk Result EncounterCorey Viktoria DO Work Phone: NOMS External Department UnsolicitedStart: 08-13-2024 End: 30-53-4244Nhvbaqehx Result EncounterCorey Viktoria DO Work Phone: NOMS External Department UnsolicitedStart: 07-08-2024 End: 65-53-8877Jzmuuay encounter procedureLuba LAU Work Phone: noms BCP OBComment on above:Nexplanon removal; Encounter for routine checking of intrauterine contraceptive device (IUD)Start: 06-24-2024 End: 44-33-8403Znsqlg flowsShahid LAU Work Phone: NOMS CI FMStart: 06-24-2024 End: 90-55-4229Iuvzwi flowsShahid LAU Work Phone: NOMS CI FMStart: 06-24-2024 End: 85-10-9311Joponc outpatient visit 15 minutesJennifer LAU Work Phone: NOMS CI FMComment on above:PCOS (polycystic ovarian syndrome) (Primary Dx); Iron deficiency anemia due to chronic blood loss; Menorrhagia with irregular cycleStart: 06-22-2024 End: 66-78-7150Kohsnye encounter procedureCorey Viktoria DO Work Phone: NOMS BCP OBComment on above:Encounter for IUD insertionStart: 06-20-2024 End: 92-60-1025Stywunstf Result EncounterCorey Viktoria DO Work Phone: NOLD External Department UnsolicitedStart: 06-20-2024 End: 17-50-9035Ergomydni Result EncounterCorey Viktoria DO Work Phone: NOCI External Department UnsolicitedStart: 06-18-2024 End: 97-81-8343Hjfwilyhe Result EncounterCorey Viktoria DO Work Phone: noms External Department UnsolicitedStart: 06-18-2024 End: 16-23-6350Zlztzcwte Result EncounterCorey Viktoria DO Work Phone: NOMS External Department UnsolicitedStart: 06-14-2024 End: 27-44-3860Ugjwmi flowsheetCorey Viktoria DO Work Phone: NOAA BCP OBStart: 06-14-2024 End: 53-77-2300Bnkhjc flowsheetCorey Viktoria DO Work Phone: noms BCP OBStart: 06-14-2024 End: 11-60-8220Nnhhoq outpatient visit 15 minutesCorey Viktoria DO Work Phone: noms BCP OBComment on above:Menorrhagia with regular cycleStart: 04-14-2024 End: 92-76-5853svvtezbvejWfsdsrrvaWVUMedicine [facility] Work Phone: Start: 04-14-2024 End: 20-33-7757Qpgglhb encounter [facility]At[facility] [place] Work Phone: Start: 04-09-2024 End: 55-95-8425sgqcclkcatKsuixizhyWVUMedicine Harrison [facility] Hospital Work Phone: Start: 04-09-2024 End: 61-41-6939Ytczoqdxe for general adult medical examination without abnormal findingsProMedica Memorial Hospitaltart: 04-09-2024 End: 35-33-7344Wuohkxi encounter procedureAt[facility] Work Phone: Start: 01-22-2024 End: 46-40-4619Rajdlcqyl Result EncounterCorey Viktoria DO Work Phone: noms External Department UnsolicitedStart: 01-22-2024 End: 22-75-5542Scbuyohfg Result EncounterCorey Viktoria DO Work Phone: noms External Department UnsolicitedStart: 01-02-2024 End: 23-44-0821zdvjawzvzeMlip McCloudFacility:[facility] Start: 01-02-2024 End: 24-49-1610gagznxyxrzGD Matthew Braniecki Work Phone: [facility] Work Phone: Start: 01-02-2024 End: 10-22-7087Qhcphhp encounter procedureDO Mishel Dimas Work Phone: [facility]- Visit Work Phone: Start: 12-16-2023 End: 28-20-9096vrkreqrutsXLHTEXO A BRANIECKIProMedica Shelby Memorial Hospitaltart: 12-16-2023 End: 71-76-8840Qspeahzioe care visitChs Womenvioletta 32 Bush StreetCenter for Health Services - Women's ServicesComment on above:Encounter for visit (Primary Dx)Start: 49-07-9578Jssuqciuh EncounterMatthew Braniecki DO Work Phone: [phone] [address] NICUStart: 62-40-2670Qxgnrsble EncounterMatthew Braniecki DO Work Phone: [phone] [address] NICUStart: 30-78-8162Jxwpssbls EncounterMatthew Braniecki DO Work Phone: [phone] [address] NICUStart: 80-23-0258Umadvqvri EncounterMatthew Braniecki DO Work Phone: [phone] [address] NICUStart: 25-27-4432Rwzzddgxo EncounterMatthew Braniecki DO Work Phone: [phone] [address] NICUStart: 77-16-8912Rrigvhciq EncounterMatthew Braniecki DO Work Phone: [phone] [address] NICUStart: 11-19-2023 End: 47-67-0550qsgcxhilzcUMHUZIW A BRANIECKIProMedica Prescott HospitalStart: 11-19-2023 End: 03-06-5552Jfayyqu encounter procedureChs Womens Svcs High RiskCenter for Health Services - Women's ServicesComment on above:Surgical followup (Primary Dx)Start: 39-44-1274Tvyorbdme EncounterMatthew Braniecki DO Work Phone: [phone] [address] NICUStart: 12-31-3495Agmjboqye EncounterMattlorena Dimas DO Work Phone: [phone] [address] NICUStart: 04-28-4547Ckwxulgat EncounterMattlorena Dimas DO Work Phone: [phone] [address] NICUStart: 11-13-2023 End: 89-08-6959Hazxujugcp and management of inpatientMATTLORENA DIMAS [facility] HospitalStart: 11-06-2023 End: 13-00-0911Cknsyzoymr and management of inpatientKRISTINE BROGANProMedica Amin HospitalStart: 10-30-2023 End: 87-20-8159Okacwotabu and management of inpatientMAGGELIESER GE [facility] Columbusedica Amin HospitalStart: 10-23-2023 End: 38-34-4121Zitmhmdarb and management of inpatientCOLLEEN E LAVOYProMedica Amin HospitalStart: 10-16-2023 End: 03-32-5114Zndvaystpc and management of inpatientKRISTINE BROGANProMedica Amin HospitalStart: 10-09-2023 End: 12-64-2170Kthhadeemo and management of inpatientKRISTINE BROGANProMedica Amin HospitalStart: 10-02-2023 End: 30-56-7124Gbjnsvmefp and management of inpatientMAGGIE BOB GE [facility] HospitalStart: 09-24-2023 End: 80-83-8818Uefypixisy and management of inpatientERIC SHUFFLEProMedica Amin HospitalStart: 09-15-2023 End: 22-35-1877Htypkczauo and management of inpatientERIC SHUFFLEProMedica Amin HospitalStart: 09-08-2023 End: 89-16-7863Vsjltmttak and management of inpatientPEDRO ROCAProMedica Amin HospitalStart: 09-04-2023 End: 07-50-3877Dmkftxtbft and management of inpatientERIC SHUFFLEProMedica Amin HospitalStart: 08-28-2023 End: 34-74-0440Evnamwykli and management of inpatientDAVID A HARPERProMedica Shelby Memorial Hospitaltart: 04-07-2023 End: 11-34-2426nkpedxcezySpsmzyb Braniecki Other [employer] Other Start: 16-62-2816Xqtjneyyc for general adult medical examination without abnormal findingsMattw CindaVirginia Mason Health System ClintonStart: 90-94-4411Irzfdvxd preventive med est patient 18-39 yrsMatthew CindaNorth Okaloosa Medical CenterStart: 03-26-2023 End: 81-34-2827tpwrdjeadzZdozogt BranieckiFacility:[facility] Memorial Hospitaltart: 03-26-2023 End: 98-72-6326jenfvfqnzgYX Mishel Dimas Work Phone: [facility] Work Phone: Start: 03-26-2023 End: 64-69-3150Qdcjbmj encounter procedureDO Mishel Dimas Work Phone: [facility] [place] Work Phone: Start: 03-19-2023 End: 40-47-0356jfvirhfsnfOhglfit Braniecki Other [employer] Other Start: 84-73-7062Eqoykhylg for other specified special examinationsMattw CindaNorth Okaloosa Medical CenterStart: 03-19-2023 Telephone encounterMattlorena LooNorth Okaloosa Medical CenterStart: 08-06-2022 End: 45-03-6411ulhompvbczThdcqlt Braniecki Other [employer] Other Start: 13-99-4562Kqedjlomn encounterMakat Dimas [employer]ar[employer] CoStart: 07-29-2022 End: 77-64-8091crtcguffuhUwhjazb Braniecki Other [employer] Other Start: 08-50-4505Xesxhxrie encounterMatthew Braniecki [facility]Start: 07-22-2022 End: 35-08-4530ukwjxdxzzsQpuuldi Braneliesercki Other [employer] Other Start: 01-97-5554Jyasanjxe encounterMatthew Braneliesercki [facility]villeStart: 07-19-2022 End: 42-15-0380Wewtpblcb department patient visitAhmet Moreno Facility:[facility]tart: 07-19-2022 End: 06-27-2434uwpeplxejmREYSDTX A BRANIECKIFacility:[facility] HospitalStart: 11-05-2021 End: 62-09-2346iuqojeardvBaacjdj Braneliesercki Other [employer] Other Start: 89-46-2464Vrmjpvdwu encounterMatthew Braneliesercki [facility]villeStart: 07-31-2021 End: 33-17-6703tjyjeawisaKollbma Braneliesercki Other [employer] Other Start: 73-10-9048Fzzpot outpatient visit 25 minutes Mishle QueenPenn Medicine [facility] Procedures DateProcedureProcedure DetailPerforming ClinicianStart: 95-97-3847PZSLRHJBM VAGINITIS (HTRX)Margarita Burnett NP Work Phone: Start: 37-20-3797FC PELVIS W/ TRANSVAGINALGeneric External Data ProviderStart: 87-64-2352QYV CMP (CMP) (FOR REMOTE [facility] USE)Luba LAU Work Phone: Start: 82-44-1427SOM Misbah LAU Work Phone: Start: 55-63-3333MQY DEHYDROEPIANDROSTERONECorey Viktoria DO Work Phone: Start: 07-87-5843UYC DHEA SULFATECorey Viktoria DO Work Phone: Start: 32-86-3924ESD INSERTION/REMOVAL OF CONTRACEPTIVE CAPSULEAmy Ellis LAU Work Phone: Start: 23-31-6433OYU INSERTIONCorey Viktoria DO Work Phone: Start: 59-56-0486Qrdtt test visual color cmprsn methsCorey Viktoria DO Work Phone: Start: 28-46-1657ZS PELVIS W/ TRANSVAGINALCorey Viktoria DO Work Phone: Start: 19-15-9284VDJ CBC WITH AUTO DIFFCorey Viktoria DO Work Phone: Start: 69-25-9428Keagn Strep (POC)Start: 99-76-1758LB PELVIS W/ TRANSVAGINALCorey Viktoria DO Work Phone: Start: 52-64-3051Nwdzdwpyvn carePostpartum CareERIC SHUFFLEStart: 51-65-5679Nzlos depression screening assessmentChs 2yrStart: 31-48-1329Mgcfi depression screening assessmentChs Risk Plan of Treatment DateCare ActivityDetailAuthorStart: 47-86-2314WStG,Tdap and Td Vaccines (8 - Td or Tdap)DTaP,Tdap and Td Vaccines (8 - Td or Tdap)ProMed[facility] Health SystemStart: 04-04-2026 End: 48-95-5325Qllzstd encounter procedureNOMS BCP OBStart: 08-30-2025 End: 71-62-9583Cjcnnuv encounter lzpwyjesb52/02/2025 9:30 AM EST Office Visit [facility] [address] [facility] [place] [phone] Luba Corral PA [address] [place] [address] NOMS Fern OBGYNStart: 07-26-2025 End: 38-88-6292Zlpbbwz encounter procedureNOMS Fern OBGYNComment on above: ArrivedStart: 06-28-2025 End: 31-88-2474Uzsyvov encounter procedureNOMS [place] Family MedinceComment on above:ArrivedStart: 06-24-2025 End: 61-93-3060Gvxniuj encounter procedureNOMS CI FMStart: 05-31-2025 End: 72-72-1659Ydxvogu encounter procedureNOMS [place] OBGYNComment on above: ArrivedStart: 19-01-4230BPMKQ-19 Vaccine ( season)COVID-19 Vaccine ( season)NOMS HealthcareStart: 47-55-1149Jpvemuqgl vaccinationNOMS HealthcareStart: 05-02-2025 End: 97-62-9120Suzwibe encounter srzcjukdr30/04/2025 2:30 PM EDT Office Visit [facility] [address] [place] [address] Luba Corral PA [address] [place] [address] ArrivedNOMS Fern OBGYNComment on above:ArrivedStart: 03-29-2025 End: 26-10-1039Qyoizet encounter mtfycjvfx75/01/2025 1:00 PM EDT Office Visit [facility] BCP OB [address] [place] [address] Luba Corral PA [address] [place] [address] NOMS BCP OBStart: 03-22-2025 End: 33-36-7781Blbfoat encounter ibqtpsvrc76/24/2025 11:00 AM EDT Office Visit [facility] OB [address] [facility] [place] [phone] Davin Blum DO [address] [place] [address] NOMS BCP OBStart: 01-18-2025 End: 29-96-3972Deyqbbh encounter unbhrohus03/22/2025 4:30 PM EDT Office Visit NOM[facility] CI FM [address] [facility] [address] [place] [address] Jnenifer Herrera PA [address] [place] [address] [place] [address] ArrivedNOMS CI FMComment on above:ArrivedStart: 27-88-5595Voqxt BMI ScreeningAdult BMI ScreeningProPromedica Bay Park Hospitalca Health SystemStart: 69-25-1729Mpckgsbxui ScreeningDepression ScreeningMiami Valley Hospitalca Health SystemStart: 34-70-6449Qtrwwbx ScreeningTobacco ScreeningProMedica Health SystemStart: 41-31-7872Savul BMI ScreeningAdult BMI ScreeningProMedica Health SystemStart: 42-50-7328Seujwpdkfi ScreeningDepression ScreeningProMedica Health SystemStart: 89-01-1035Mzftvym ScreeningTobacco ScreeningProPromedica Bay Park Hospitalca Health SystemStart: 10-00-9424Ikkahtx ScreeningTobacco ScreeningProPromedica Bay Park Hospitalca Health SystemStart: 15-14-1732Omege BMI ScreeningAdult BMI ScreeningMiami Valley Hospitalca Health SystemStart: 55-79-2017Yjdehzejh for Chlamydia trachomatisChlamydia ScreeningMcKitrick Hospital SystemStart: 07-08-2024 End: 79-90-8129Fnhnkre encounter /10/2024 1:30 PM EDT Procedure Visit [facility] BCP OB [address] [facility] [place] [address] Luba Corral PA [address] [place] [address] NOMS BCP OBStart: 06-24-2024 End: 66-19-6838Mjzbfam encounter procedureNOMS CI FMComment on above:Arrived Start: 06-22-2024 End: 22-44-7479Jcjbunt encounter /24/2024 1:30 PM EDT Procedure Visit [facility] OB [address] [place] [address] Davin Blum, DO [address] [place] [address] NOM BCP OBStart: 06-14-2024 End: 23-37-6579wWKU in Blood by Coagulation assayAPTT Lab Routine Menorrhagia with regular cycle Expected: 06/14/2024 (Approximate), Expires: 06/14/2025NOMS HealthcareComment on above:Expected: 06/14/2024 (Approximate), Expires: 06/14/2025Start: 06-14-2024 End: 42-00-4638EQCFEPGW Lab Routine Menorrhagia with regular cycle Expected: 06/14/2024 (Approximate), Expires: 06/14/2025NOMN HealthcareComment on above: Expected: 06/14/2024 (Approximate), Expires: 06/14/2025Start: 06-14-2024 End: 99-60-1748BL for pregnancyUS PELVIS-TRANSVAG IF INDICATED Imaging Routine Menorrhagia with regular cycle Expected: 06/14/2024(Approximate), Expires: 06/14/2025NOMS HealthcareComment on above:Expected: 06/14/2024 (Approximate), Expires: 06/14/2025Start: 06-14-2024 End: 68-54-9147Ehriamo encounter tvutnktvq72/16/2024 11:10 AM EDT Office Visit [facility] B[facility] OB [address] [place] [phone] Davin Blum, DO [address] [place] [address] ArrivedNOCHONC PEDIATRIC HOSPITAL OBComment on above:ArrivedStart: 10-15-0413Icxcxrxat vaccinationInfluenza Vaccine (#1)NOM HealthcareStart: 12-16-2023 End: 36-18-7124uxufhexope11/19/2024 1:30 PM EDT Visit [facility] [address] [place] [address] Ukfikw [facility] HospitalStart: 11-19-2023 End: 10-77-3666Difktkf encounter ytfyrqpsj37/21/2024 10:45 AM EST Office Visit [facility] [address] [place] [address] Pctgxi [facility] HospitalStart: 74-23-5032SUOWV-19 Vaccine (2022- season)COVID-19 Vaccine ( season)ProMFairmont Hospital and Clinic SystemStart: 91-06-1697Zmzfyyqnr B Vaccines (1 of 3 - 19+ 3-dose series)Hepatitis B Vaccines (1 of 3 - 19+ 3-dose series)NOM HealthcareStart: 84-76-4590Pcbqr BMI Follow Up PlanAdult BMI Follow Up Plan [facility] SystemStart: 88-58-3070Mesuaivztdbqk B Vaccine (1 of 2 - Standard)Meningococcal B Vaccine (1 of 2 - Standard)NOM HealthcareStart: 95-61-2281RPM Vaccines (1 - 3-dose series)HPV Vaccines (1 - 3-dose series)NOM HealthcareStart: 83-20-5453Ixkbvgj of varicella vaccinationVaricella Vaccines (1 of 2 - 13+ 2-dose series)NOM HealthcareStart: 69-19-2278Ouvdwwropd Screening Depression ScreeningMcKitrick Hospital SystemStart: 06-57-3241WVgA/Tdap/Td Vaccines (1 - Tdap)DTaP/Tdap/Td Vaccines (1 - Tdap)NOMS HealthcareStart: 41-05-2018MRK Vaccines (1 of 1 - Standard series)MMR Vaccines (1 of 1 - Standard series)NOM Frccybzymv59-ucsypsehtnjzbl D3 [Mass/volume] in Serum or Plasma Vitamin D 25 hydroxy Total Lab Routine Weight gain PCOS (polycystic ovarian syndrome) Other fatigueOrdered: 01/18/2025[facility] Work Phone: Comment on above:Ordered: 01/18/2025BC panel - Blood by Automated countCBC Lab Routine Iron deficiency anemia due to chronic blood loss Other fatigue Ordered: 01/18/2025[facility] HealthcareComment on above:Ordered: 01/18/2025BC W Auto Differential panel - BloodCBC and differential Lab Routine Menorrhagia with regular cycle Ordered: 06/14/2024[facility] HealthcareComment on above:Ordered: 06/14/2024omprehensive metabolic 2000 panel - Serum or Plasma Comprehensive metabolic panel Lab Routine Well woman exam with routine gynecological exam Ordered: 03/29/2025[facility] HealthcareComment on above:Ordered: 03/29/2025ytology Cervical or vaginal smear or scraping studyPap Smear Pathology and Cytology Routine Well woman exam with routine gynecological exam Ordered: 03/29/2025[facility] Healthcare Work Phone: comment on above:Ordered: 03/29/2025DHEA-sulfateDHEA- sulfate Lab Routine Menorrhagia with regular cycle Ordered: 06/14/2024[facility] HealthcareComment on above:Ordered: 06/14/2024Follicle stimulating hormone Follicle stimulating hormone Lab Routine Menorrhagia with regular cycle Ordered: 06/14/2024[facility] HealthcareComment on above:Ordered: 06/14/2024hCG, quantitative, pregnancyhCG, quantitative, Lab Routine Menorrhagia with regular cycle Ordered: 06/14/2024[facility] HealthcareComment on above:Ordered: 06/14/2024 Hemoglobin A1c/Hemoglobin.total in BloodHemoglobin A1c Lab Routine Menorrhagia with regular cycle Ordered: 06/14/2024[facility] HealthcareComment on above:Ordered: 06/14/2024Hemoglobin A1c/Hemoglobin.total in BloodHemoglobin A1c Lab Routine Well woman exam with routine gynecological exam Ordered: 03/29/2025[facility] HealthcareComment on above:Ordered: 03/29/2025Iron + transferrin + TIBCIron + transferrin + TIBC Lab Routine Iron deficiency anemia due to chronic blood loss Other fatigue Ordered: 01/18/2025[facility] HealthcareComment on above:Ordered: 01/18/2025Luteinizing hormoneLuteinizing hormone Lab Routine Menorrhagia with regular cycle Ordered: 06/14/2024[facility] HealthcareComment on above:Ordered: 06/14/2024rothrombin time (PT) in Blood by Coagulation assayProtime-INR Lab Routine Menorrhagia with regular cycle Ordered: 06/14/2024[facility] Work Phone: comment on above:Ordered: 06/14/2024Thyrotropin [Units/volume] in Serum or PlasmaTSH Lab Routine Menorrhagia with regular cycle Ordered: 06/14/2024[facility] HealthcareComment on above:Ordered: 06/14/2024Thyroxine (T4) free [Mass/volume] in Serum or PlasmaT4, free Lab Routine Menorrhagia with regular cycle Ordered: 06/14/2024[facility] HealthcareComment on above:Ordered: 06/14/2024TSH W/REFLEX TO FT4TSH W/REFLEX TO FT4 Lab Routine Weight gain Family history of thyroid disease Other fatigue Ordered: 01/18/2025[facility] Comment on above:Ordered: 01/18/2025[facility] Immunizations Immunization DateImmunizationNotesCare WjejafnqVabvcvdp78-47-9483Onvojucks, Madin Guadalupe Canine Kidney, subunit, trivalent, injectable, contains preservative Jennifer Herrera [place] Work Phone: [facility] Work Phone: [phone] toxoid, reduced diphtheria toxoid, and acellular pertussis vaccine, adsorbedMatthew Braniecki DO Work Phone: [facility] HospitalKlbfto39-42-0794qpqibzuac, injectable, quadrivalent, preservative freeMatthew Braniecki DO Work Phone: [facility] HospitalClcdoh01-79-8036vpajsjpmf virus vaccine, unspecified formulationDavin Viktoria DO Work Phone: [facility] HospitalMcruhwophh03-32-2774yhqhmderiuokf polysaccharide (groups A, C, Y and W-135) diphtheria toxoid conjugate vaccine (MCV4P)Mishel Dimas Other [facility]06-30-2020tetanus toxoid, reduced diphtheria toxoid, and acellular pertussis vaccine, adsorbedDO Mishel Dimas Work Phone: [facility]07-11-2016poliovirus vaccine, inactivatedMattlorena Dimas Other [employer] Other [id number] papilloma virus vaccine, quadrivalent Mishel Dimas Other [facility]07-11-2016 meningococcal polysaccharide (groups A, C, Y and W-135) diphtheria toxoid conjugate vaccine (MCV4P)Mishel Dimas Other [facility]07-11-2016measles, mumps and rubella virus vaccineMattlorena Dimas Other [facility]07-11-2016poliovirus vaccine, unspecified formulationDO Mishel Dimas Work Phone: [facility]07-11-2016varicella virus vaccineMattlorena Dimas Other [facility] Payers DatePayer CategoryPayerPolicy [id number] (Managed Care)[place] [address] [id number] [id number] Cross Blue Shield [id number] Cross Blue Shield [id number] [id number] Cross Blue [id number] 2.16.840.6.402478.74709674-11-3950Ymudwnr3.2.840.934389.1.13.693.2.7.3.087274.315 [id number] 2.16.840.1.961116.3.57[id number] 2.16840.1.676372.3.57[id number] 2.16840.1.092813.3.579.2.3[id number] 2.16840.1.462011.3.579.2.718638-28-3247Xolynjq09841489 2.16840.1.128955.3.579.2.224203-57-1093Mfxojor13648838 2.16840.1.278650.3.579.2.48[id number] 2.16.840.1.183115.3.579.[id number] 2.16840.1.914297.3.579.2.[id number] 2.16840.1.790090.3.579.2.638908-24-6844Oietyku26425493 2.16840.1.523300.3.579.2.[id number] 2.840.1.459827.3.579.2.125970-74-9948Mrjxdui62566940 2.840.1.929463.3.579.2.547165-88-8766Mfyyxos95104548 2.16840.1.358882.3.579.2.074386-46-4786Uyirgdg32283088 2.840.1.877715.3.579.2.160694-92-6025Esapahi35281956 2.840.1.805389.3.579.2.9[id number] 2.840.1.148794.3.579.2.[id number] 2.840.1.523461.3.579.2.022046-81-2515Ttqgbzr97350402 2.840.1.853917.3.579.2.344620-02-9696Xsaqrwd38340173 2.840.1.271789.3.579.2.709291-96-9846Kxkfwkc88536929 2.840.1.045178.3.579.2.792849-41-2732Bspmrcw47637340 2.840.1.157676.3.579.2.[id number] 2.840.1.551796.3.57[id number] 2.840.1.189784.3.57[id number] 2.16840.1.75[id number] 2.840.1.218253.3.579.2.531 [id number] 2.16.840.1.264331.3.579.2.531 Social History DateTypeDetailFacilityStart: 01-28-2024 End: 69-11-1020Ttl [facility] HospitalNOMN HealthcareStart: 11-02-2021 End: 40-27-7287Mbryjby smoking status NHISNever smoked tobacco (finding) [facility]: 28-42-5985Eaz Assigned At [facility] HospitalFeBlanchard [facility] Hospitaltart: 06-04-2023 End: 69-86-6256Vaolwoz use and exposureSmokeless tobacco non-userProPromedica Bay Park Hospitalca Health SystemStart: 01-14-2024 End: 71-75-5384Czfmqrtps beverage intakeLifetime non-drinker (finding)[facility] HealthcareStart: 01-28-2024 End: 35-84-6314Socrbea of Social functionNOMS HealthcareDo you belong to any clubs or organizations such as taoism groups, [employer], [employer] or athletic [facility] [facility], or school groups?NoNOMS HealthcareStart: [id number] often do you attend meetings of the clubs or organizations you belong to?Patient declinedNOMS HealthcareAre you now , , , , never or living with a partner?Living with partnerNOMS HealthcareHow often to you have a drink containing alcohol?NeverNOMS HealthcareDo you feel stress - tense, restless, nervous, or anxious, or unable to sleep at night because yourmind is troubled all the time - these days [OSQ]Only a littleNOMS Healthcare(I/We) worried whether (my/our) food would run out before (I/we) got money to buy more. Never trueNOMS HealthcareStart: [id number] CommentCaffeine: occasional chocolateNOMS HealthcareStart: 01-05-1450Niq assigned at birthNot on fileNOMN HealthcareStart: 11-12-2023 End: 39-22-3938Eicplds intakeCurrent non-drinker of alcohol (finding)[facility] SystemStart: [id number] identityIdentifies as female gender (finding)[facility] Systemtart: [id number] orientationHeterosexual (finding)[facility] HospitalHow often to you have a drink containing alcohol?2-4 times a monthBarton County Memorial HospitalHow many standard drinks containing alcohol do you have on a typical day?1 or 2NEllett Memorial Hospital Functional Status QbhpUjuoezqhbvYecaqnGvxjvijj77-18-7518Fythbvs Health Questionnaire 2 item (PHQ- 2) [Reported][facility] HospitalFimbuvgpod19-28-5834Doauq score [AUDIT-C]2 06/22/2025 9:38 PM EDT Mychart, GenericBarton County Memorial HospitalGoplxcrfyr27-94-3406Usz often do you have a drink containing alcohol?2-4 times a month 06/22/2025 9:38 PM EDT Mychart, Generic 2-4 times a monthBarton County Memorial HospitalBoxdjwhuyv23-79-2402Jav many standard drinks containing alcohol do you have on a typical day?1 or 2 06/22/2025 9:38 PM EDT Mychart, Generic 1 or 2NEllett Memorial HospitalYpmwbrfpzj99-45-0478Jql often do you have 6 or more drinks on 1 occasion?Never 06/22/2025 9:38 PM EDT Mychart, Generic NeverBarton County Memorial Hospital [id number] Health Questionnaire 2 item (PHQ-2) [Reported][facility] Clinical Notes 07-30-2017 to 07-26-2025 Note Date & WpamRmdzIwxlqjie80-25-2016 History of Present illness Narrative* Delores Prince - 07/26/2025 8:40 AM EDT Reason for Appointment: Patient ID: Joselin Valenzuela is a 19 y.o. female who presents for Pre-op Visit and Weight Management Patient presents today for Pre Op appointment. Patient is scheduled to undergo Da Leslie assisted Bilateral Laparoscopic Salpingectomy on 08/19/[address] Blum at [facility]. MEDICATIONS Current Outpatient Medications Medication Instructions cholecalciferol [...] Diagnosis Date Noted Antepartum bleeding, third trimester ([facility] 06/24/2024 Abdominal cramping complicating , antepartum ([facility]) 06/24/2024 UTI (urinary tract infection) 06/24/2024 Adenoid [...] Diagnosis Date Abdominal cramping complicating , antepartum ([facility]) 06/24/2024 Anemia Antepartum bleeding, third trimester ([facility]) 06/24/2024 Irregular menses Ovarian cyst Polycystic ovary [...] nursing note reviewed. Exam conducted with a sales representative church furniture present. Vitals: Estimated body mass index is 30 kg/m as calculated from the following: Height as of 06/28/25: 5' 2 . Weight as of this [...] reviewed, and patient is to proceed to [facility] OR. Follow Up: Patient is to follow up between 1-2 weeks post op to assess proper healing and recovery from procedure. Documented by Jennifer Irving LPN on behalf of: Davin Blum DO documented in this encounterBarton County Memorial [id number] History of Present illness Narrative* Margarita Burnett NP - 06/28/2025 10:30 AM EDT Reason for Appointment: Patient ID: Joselin Valenzuela is a 19 y.o. female who presents for encounter for weight management andSTI Screening Patient presents today for Weight management and Vaginal discharge. MEDICATIONS Current Outpatient Medications Medication Instructions cholecalciferol [...] Diagnosis Date Noted Antepartum bleeding, third trimester ([facility]) 06/24/2024 Abdominal cramping complicating , antepartum ([facility]) 06/24/2024 UTI (urinary tract infection) 06/24/2024 Adenoid [...] Diagnosis Date Abdominal cramping complicating , antepartum ([facility]) 06/24/2024 Anemia Antepartum bleeding, third trimester ([facility]) 06/24/2024 Irregular menses Ovarian cyst Polycystic ovary [...] nursing note reviewed. Exam conducted with a sales representative church furniture present. Vitals: Estimated body mass index is 29.48 kg/m as calculated from the following: Height as of an earlier encounter on 25: 5' 2 . Weight as of this encounter: 161 lb 3.2 oz. BP: 110/70 No LMP recorded. (Menstrual status: IUD). ASSESSMENT & PLAN ICD-10-CM 1. Encounter for weight management Z76.89 2. Vaginal discharge N89.8 Patient weight is below BMI to continue on Adipex treatment she will let us know in a few weeks next steps for weight loss journey. We discussed taking a Holiday from Adipex, Discussed Exercise and diet to maintain a healthy weight and also discussed possibility of micro dosing GLP -1. Patient alsoreports having vaginal discharge and cultures obtained without difficulty. I reviewed her most recent ultrasound results as well. Documented by Margie Santacruz LPN on behalf of: Margarita Burnett NP documented in this encounterBarton County Memorial [id number] History of Present illness Narrative* SID Hill - 06/28/2025 9:30 AM EDT Images from the original note were not included. Subjective Patient ID: Joselin Valenzuela is a 19 y.o. female who presents for Wellness. Subjective Joselin Valenzuela is a 19 y.o. female and is here for a comprehensive physical exam. The patient reports no problems. Over the past 2 weeks, how often have you been bothered by any of the following problems? Little interest or pleasure in doing things: Not at all Feeling down, depressed, or hopeless: Not at all Patient Health Questionnaire-2 Score: 0 Current Outpatient Medications on File Prior to Visit Medication Sig Dispense Refill polyethylene glycol, PEG, 3350 (Glycolax) 17 GM/SCOOP powder Take 17 g by mouth Daily cholecalciferol (Vitamin D-3) 50 MCG (2000 UT) capsule Take 1 capsule (50 mcg) by mouth Daily 90 capsule 3 ferrous sulfate (Fe Tabs) 325 (65 Fe) MG EC tablet Take 1 tablet (325 mg) by mouth in the morning. Take with meals. Do not crush, chew, or split. 30 tablet 2 phentermine (Adipex-P) 37.5 MG tablet Take 1 tablet (37.5 mg) by mouth in the morning. Take before meals. 30 tablet 0 Current Facility-Administered Medications on File Prior to Visit Medication Dose Route Frequency Provider Last Rate Last Admin Levonorgestrel intrauterine device 52 mg 52 mg Intrauterine Continuous Davin Blum DO 52 mg at 06/22/24 1346 I have reviewed and reconciled the history and medication list with the patient today. Allergies Allergen Reactions Metformin GI intolerance Social History Tobacco Use Smoking status: Never [...] Diagnosis Date Abdominal cramping complicating , antepartum ([facility]) 06/24/2024 Anemia Antepartum bleeding, third trimester ([facility]) 06/24/2024 Irregular menses Ovarian cyst Polycystic ovary syndrome Sciatica of left side 06/28/2025 Tongue tied 06/30/2017 Type A blood, Rh positive Urinary tract infection UTI (urinary tract infection) 06/24/2024 Past Surgical History: Procedure Laterality Date ADENOIDECTOMY 2018 SECTION, LOW TRANSVERSE 11/11/2023 OTHER SURGICAL HISTORY 05/11/2020 nexplanon insertion VAGINAL DELIVERY 2019 , @ 35 weeks 10/05 Visit Vitals BP 126/86 Pulse 85 Resp 16 Ht 5' 2 Wt 161 lb 9.6 oz SpO2 97% BMI 29.56 kg/m OB Status IUD Smoking Status Never BSA 1.79 m Review of Systems Constitutional: Negative for chills, fatigue and fever. HENT: Negative for congestion, ear pain, rhinorrhea and sore throat. Eyes: Negative for pain, discharge and visual disturbance. Respiratory: Negative for cough, shortness of breath and wheezing. Cardiovascular: Negative for chest pain, palpitations and leg swelling. Gastrointestinal: Positive for constipation. Negative for abdominal pain, diarrhea, nausea and vomiting. Genitourinary: Negative for difficulty urinating, dysuria and frequency. Musculoskeletal: Negative for arthralgias and back pain. Skin: Negative for rash. Neurological: Negative for dizziness and numbness. Psychiatric/Behavioral: Negative for sleep disturbance. The patient is not nervous/anxious. Objective Physical Exam Constitutional: General: She is not in acute distress. Appearance: Normal appearance. She is well-developed. HENT: Head: Normocephalic and atraumatic. Right Ear: Tympanic membrane and ear canal normal. Left Ear: Tympanic membrane and ear canal normal. Nose: Nose normal. Mouth/Throat: Mouth: Mucous membranes are moist. Pharynx: No posterior oropharyngeal erythema. Eyes: General: No scleral icterus. Extraocular Movements: Extraocular movements intact. Conjunctiva/sclera: Conjunctivae normal. Pupils: Pupils are equal, round, and reactive to light. Cardiovascular: Rate and Rhythm: Normal rate and regular rhythm. Heart sounds: Normal heart sounds. No murmur heard. Pulmonary: Effort: Pulmonary effort is normal. No respiratory distress. Breath sounds: Normal breath sounds. No wheezing, rhonchi or rales. Abdominal: General: Bowel sounds are normal. There is no distension. Palpations: Abdomen is soft. Tenderness: There is no abdominal tenderness. There is no guarding. Musculoskeletal: General: No swelling or deformity. Normal range of motion. Cervical back: Normal range of motion and neck supple. No tenderness. Skin: General: Skin is warm and dry. Capillary Refill: Capillary refill takes less than 2 seconds. Findings: No rash. Neurological: General: No focal deficit present. Mental Status: She is alert and oriented to person, place, and time. Cranial Nerves: No cranial nerve deficit. Sensory: No sensory deficit. Motor: No weakness. Gait: Gait normal. Deep Tendon Reflexes: Reflexes normal. Psychiatric: Mood and Affect: Mood normal. Behavior: Behavior normal. Thought Content: Thought content normal. Judgment: Judgment normal. Assessment/Plan Diagnoses and all orders for this visit: Wellness examination Wellness form reviewed in detail with the patient. Encouraged patient to stay up to date on immunizations and preventative testing. Encouraged healthy diet, stay active. Will continue with yearly wellness exams. Encounter for immunization - Flu vaccine, MDCK, Trivalent, Provided pt with Flu shot today. She tolerated this well. Overweight Has lost 17 pounds since the beginning of April. She is on Adipex through [facility] currently. Menorrhagia with irregular cycle The patient is seeing a medical office representative for this condition, treatment is deferred to that specialist. Correspondence from that specialist and any available testing were reviewed during today's visit. PCOS (polycystic ovarian syndrome) The patient is seeing a medical office representative for this condition, treatment is deferred to that specialist. Correspondence from that specialist and any available testing were reviewed during today's visit. Iron deficiency anemia due to chronic blood loss This is a chronic medical condition that is stable since last assessment. No changes in treatment are suggested at this time. Continue iron supplement. Will continue to monitor with routine labs. Seasonal allergic rhinitis due to pollen This is a chronic medical condition that is stable since last assessment. No changes in treatment are suggested at this time. Can take OTC allergy medication prn. Deviated septum This is a chronic medical condition that is stable since last assessment. No changes in treatment are suggested at this time. Can take OTC allergy medication prn. S/P adenoidectomy This is a chronic medical condition that is stable since last assessment. No concerns at this time. Recurrent major depressive disorder, in full remission Mood doing well at this time without medication. Will continue to monitor. Chronic idiopathic constipation Miralax with mixed tolerance and results. She can try Smooth Move Capsules or Tea and see if she has better results. Follow up with GI as per their instruction. Stay hydrated. Vitamin D deficienccy This is a chronic medical condition that is stable since last assessment. No changes in treatment are suggested at this time. Continue Vitamin D supplement. Will continue to monitor with routine labs. Follow up in about 1 year (around 06/28/2026) for Wellness. documented in this encounterBarton County Memorial [id number] History of Present illness Narrative* SID Hernandez - 05/31/2025 10:00 AM EDT Reason for Appointment: Patient ID: Joselin Valenzuela is a 19 y.o. female who presents for encounter for weight management Patient presents today for a weight management consultation. Patient has been prescribed Adipex andshe is here for her 2nd prescription. Today's Vitals: Estimated body mass index is 30.62 kg/m as calculated from the following: Height as of 01/18/25: 5' 2 . Weight as of this encounter: 167 lb 6.4 oz. Previous Weight/BMI: Wt Readings from Last 2 Encounters: 05/31/25 167 lb 6.4 oz 05/02/25 178 lb 12.8 oz BMI Readings from Last 2 Encounters: 05/31/25 30.62 kg/m 05/02/25 32.70 kg/m Allergies as of 05/31/2025 (No Known Allergies) Past Medical History: Diagnosis Date Abdominal cramping complicating , antepartum ([facility]) 06/24/2024 Anemia Antepartum bleeding, third trimester ([facility]) 06/24/2024 Irregular menses Ovarian cyst Polycystic ovary syndrome Type A blood, Rh positive Urinary tract infection UTI (urinary tract infection) 06/24/2024 Past Surgical History: Procedure Laterality Date ADENOIDECTOMY 2017 SECTION, LOW TRANSVERSE 11/11/2023 OTHER SURGICAL HISTORY 05/11/2020 nexplanon insertion VAGINAL DELIVERY 2019 , @ 35 weeks 10/05 Assessment/Plan Encounter Diagnosis Name Primary? Encounter for weight management Adipex: Patient presents today for 2nd Adipex prescription. Patients weight and blood pressure has been captured and discussed with the patient. I have discussed/reiterated the importance of keeping a food journal, proper nutrition/diet, and exercise regimen while taking Adipex. Patient verbalized understanding and was given a printed prescription signed by provider to take to their local pharmacy. Follow Up: Patient is to return to the office in 3 months for further evaluation to assess patient progress. Weight and blood pressure will need to be obtained in order for patient to receive 5th prescription. Documented by: Margie Santacruz LPN on behalf of SID Hernandez documented in this encounterBarton County Memorial [id number] History of Present illness Narrative* SID Hernandez - 05/02/2025 2:30 PM EDT Reason for Appointment: Patient ID: [...] Diagnosis Date Noted Antepartum bleeding, third trimester ([facility]) 06/24/2024 Abdominal cramping complicating , antepartum ([facility]) 06/24/2024 Other acute sinusitis 10/27/2017 UTI (urinary tract infection) 06/24/2024 Adenoid hypertrophy 06/23/2017 Excessive and frequent menstruation 06/24/2024 Past Medical History: Diagnosis Date Anemia Irregular menses Ovarian cyst Polycystic ovary syndrome Type A blood, Rh positive Urinary tract infection HISTORY PAST MEDICAL HISTORY SOCIAL HISTORY Past Medical History: Diagnosis Date Abdominal cramping complicating , antepartum ([facility]) 06/24/2024 Anemia Antepartum bleeding, third trimester ([facility]) 06/24/2024 Irregular menses Ovarian cyst Polycystic ovary [...] behalf of: SID Hernandez documented in this encounterBarton County Memorial [id number] History of Present illness Narrative* SID Hernandez - 03/29/2025 1:00 PM EDT [...] Diagnosis Date Noted Antepartum bleeding, third trimester ([facility]) 06/24/2024 Abdominal cramping complicating , antepartum ([facility]) 06/24/2024 Other acute sinusitis 10/27/2017 UTI (urinary tract infection) 06/24/2024 Adenoid hypertrophy 06/23/2017 Excessive and frequent menstruation 06/24/2024 Past Medical History: Diagnosis Date Anemia Irregular menses Ovarian cyst Polycystic ovary syndrome Type A blood, Rh positive Urinary tract infection HISTORY PAST MEDICAL HISTORY SOCIAL HISTORY Past Medical History: Diagnosis Date Abdominal cramping complicating , antepartum ([facility]) 06/24/2024 Anemia Antepartum bleeding, third trimester ([facility]) 06/24/2024 Irregular menses Ovarian cyst Polycystic ovary [...] nursing note reviewed. Exam conducted with a sales representative church furniture present. Vitals: Estimated body mass index is [...] behalf of: SID Hernandez documented in this encounterBarton County Memorial [id number] History of Present illness Narrative* SID Hill - 01/18/2025 4:30 PM EDT Images from the original note were [...] device 52 mg 52 mg Intrauterine Continuous Davni Blum DO 52 mg at 06/22/24 1346 [...] gain at least to some extent. Is stablewith the IUD and follows with Dr. Blum. [...] for Appointment As Scheduled. documented in this encounterBarton County Memorial [id number] History of Present illness Narrative* Margie SantacruzKHUSHI - 07/08/2024 1:30 PM EDTAssociated Order(s): Insertion/Removal of Contraceptive Capsule Post-Procedure Diagnose(s): Nexplanon removal Reason for Appointment: Patient ID: Joselin Valenzuela is a 18 y.o. female who presents for Contraception (Removal of Nexplanonand String check) Patient presents today for a [...] nursing note reviewed. Exam conducted with a sales representative church furniture present. Vitals: Estimated body mass index is [...] underneath palpated Nexplanon at distal end. After allowingfor sufficient time for numbing agent to take effect, the skin overlying the end of Nexplanon was in cised with an 11inch blade scalpel. A 7.5in hemostat was inserted in the incision site to grab device and Nexplanon was released from tissue. Nexplanon implant was removed in its entirety and visualized by myself and patient. The skin was cleansed with alcohol and the incision was covered with gauze. Post- procedure care was reviewed and patient will continue [...] behalf of: SID Hernandez documented in this encounterBarton County Memorial [id number] History of Present illness Narrative* SID Hill - 06/24/2024 10:00 AM EDT Images from the original note [...] is still having cramping. Has not called SHER[employer] OFFICER d/t she had this appt and was [...] etc. She and her decided for 's health that she was done having children, [...] Follow up for Wellness. documented in this encounterBarton County Memorial HospitalUyqsdviaoj12-02-1819 History of Present illness Narrative* Jennifer Irving LPN - 06/22/2024 1:30 PM EDTAssociated Order(s): IUD Insertion Post-Procedure Diagnose(s): Encounter for [...] nursing note reviewed. Exam conducted with a sales representative church furniture present. Vitals: Estimated body mass index is [...] given: yes Instructions and paperwork completed: yes [place] protocol: Patient states understanding of procedure being [...] cut to the length from external os. Allinstruments were removed from the vagina. Post-procedure instructions given. All of patients questions were answered and she expressed understanding. Advised to call interim with any questions or concerns. Follow Up: Patient is to return to the office in 4 weeks for a string check. Documented by Jennifer Irving LPN on behalf of: Davin Blum DO documented in this encounterBarton County Memorial [id number] History of Present illness Narrative* Gema Potter LPN - 06/14/2024 11:10 AM EDT Reason for Appointment: Patient ID: [...] nursing note reviewed. Exam conducted with a sales representative church furniture present. Vitals: Estimated body mass index is [...] irregular cycles. Patient voiced that she is goingthrough pads every 30 minutes. Patient to have [...] desire to have IUD at this time andwould like to in the near future have bilateral salpingectomy. Patient to try IUD and schedule for placement in 14 week & if desires to have Bilateral Salpingectomy in the future will contact office. Documented by Gema Potter LPN on behalf of: Davin Blum DO documented in this encounterBarton County Memorial [id number] History of Present illness Narrative* Julieth Edwards MD - 12/16/2023 1:30 PM EDT [facility] VISIT Joselin Valenzuela is a 18 y.o. presenting for 5 week postop visit from Primary low transverse section due to vasa previa and low lying placenta She has not resumed sexual intercourse, has possibly resumed menses as she is noting increased darkred vaginal spotting, had lochia, is pumping. Contraceptive [...] (eight) hours., Disp: 30 tablet, Rfl: 0 tdwfunvu24-ssel-wjwyi- 29-1-400 mg combo pack,tablet & cap,, Take [...] post-op from Primary low transverse section d/t vasaprevia and low lying placenta 1. Routine care - Patient meeting milestones 2. PPBC: nexplanon 3. Headache - improves/resolves with motrin. Headache not likely due to pre-eclampsia. Blood pressures within normal limits. Patient encouraged to follow up with pcp 4. RTO as needed. Patient has established care with television agent close to home. Patient lives an hour away and would prefer to follow up with her television agent Julieth Edwards MD [employer] Counselor Resident, PGY-2 Resident Attestation: The patient was seen and discussed with preceptor Dr Barger. Discussion/Comments: none * Heather Oseguera RN - 12/16/2023 1:30 PM EDT Seen today for PP visit following C/S 11/11 States incision is healing well Vaginal bleeding has been light, dark red now Pt states pumping, baby d/c from [facility] a week ago Nexplanon for BC C/o of increase in KATZ EPDS:1 * Evelyne Barger, - 12/16/2023 1:30 PM EDT Attending Attestation: I saw the patient. I participated and was physically present during the critical/irvin portions of the service. I was directly involved in the management and treatment plan of the patient. I reviewed the resident's note. Additional Notes/Findings: , doing well. Incision healing well. Return to hometown for [facility] care. Evelyne Barger DO documented in this encounterClinton Memorial Hospital03-09-2024 Miscellaneous Notes* Note - Dominique Bee RN - 12/06/2023 10:10 AM EST This note was copied from a baby's [...] transport of breast milk home. [facility] - [phone] documented in this encounterClinton Memorial Hospital03-09-2024 Obstetrics Note* Note - Dominique Bee RN - 12/06/2023 10:10 AM EST This note was copied from a baby's [...] transport of breast milk home. [employer] - [phone] [facility]03-07-2024 Miscellaneous Notes* Note - Karina Garcia RN - 12/04/2023 9:31 AM EST This note was copied from a baby's chart. Met with mom at 's bedside. States that pumping continues to go well, she has a stable supplyand has felt less engorged. She has been able to pump pain free. No questions or concerns at this time, encouraged to reach out for any other assistance. documented in this encounterClinton Memorial Hospital03-07-2024 Obstetrics Note* Note - Karina Garcia RN - 12/04/2023 9:31 AM EST This note was copied from a baby's chart. Met with mom at infant's bedside. States that pumping continues to go well, she has a stable supplyand has felt less engorged. She has been able to pump pain free. No questions or concerns at this time, encouraged to reach out for any other assistance. [facility]03-04-2024 Miscellaneous Notes* Note - Ely Cool RN - 12/01/2023 10:00 AM EST This note was copied from a baby's [...] baby is born. Check in with a web analytics specialist if swollen, engorged breasts are still a problem for you after one week. Before nursing or pumping, apply heat to your breasts. A warm shower, a warm washcloth directly on your breasts, or resting your breasts in a bowl of warmwater can help to get the breastmilk flowing. Before nursing or pumping, massage your breasts. Massaging your breasts before nursing or pumping can help with your milk flow. You can massage yourbreasts either during or after applying heat. To [...] your chest wall toward your nipple, and thenaround your breast. After nursing or pumping, put [...] flat on your back. These cold items willhelp to decrease the swelling in your breasts. Lie down on your back as much as possible. Lying down helps to elevate the breasts, for the same reason you would put your legs up if they areswollen. Keeping your breasts elevated will help to move the extra fluid back into your body. Take an anti-inflammatory medication. Talk with your care provider about taking a medicine like ibuprofen to help you if your engorgementis painful. Use a technique called Reverse Pressure Softening . Reverse Pressure Softening is a special type of breast massage that makes it easier for your baby to latch on when your breast is hard and full. Reverse Pressure Softening involves using your fingersto push on the breast around the areola [...] that is stretchy but still supports your breasts,with no underwire. Reinforced pumping guidelines and importance of pumping how eats. Encouraged pumping every 2-3 hours for 15-20 minutes at suction level that is comfortable. Mom will only produce the amount ofbreastmilk that her baby demands. It is true that hormones drive the production of very early breastmilk, called colostrum. However, in order to keep producing breastmilk, your baby needs to keep sucking from the breast. The overall level of milk production varies based on the babys amount of sucking and how much milk is actually removed. Questions answered, encouragement given. [facility] Obst[facility]s [facility]* Note - Ely Cool RN - 12/01/2023 10:00 AM EST This note was copied from a baby's [...] baby is born. Check in with a web analytics specialist if swollen, engorged breasts are still a problem for you after one week. Before nursing or pumping, apply heat to your breasts. A warm shower, a warm washcloth directly on your breasts, or resting your breasts in a bowl of warmwater can help to get the breastmilk flowing. Before nursing or pumping, massage your breasts. Massaging your breasts before nursing or pumping can help with your milk flow. You can massage yourbreasts either during or after applying heat. To [...] your chest wall toward your nipple, and thenaround your breast. After nursing or pumping, put [...] flat on your back. These cold items willhelp to decrease the swelling in your breasts. Lie down on your back as much as possible. Lying down helps to elevate the breasts, for the same reason you would put your legs up if they areswollen. Keeping your breasts elevated will help to move the extra fluid back into your body. Take an anti-inflammatory medication. Talk with your care provider about taking a medicine like ibuprofen to help you if your engorgementis painful. Use a technique called Reverse Pressure Softening . Reverse Pressure Softening is a special type of breast massage that makes it easier for your baby to latch on when your breast is hard and full. Reverse Pressure Softening involves using your fingersto push on the breast around the areola [...] that is stretchy but still supports your breasts,with no underwire. Reinforced pumping guidelines and importance of pumping how eats. Encouraged pumping every 2-3 hours for 15-20 minutes at suction level that is comfortable. Mom will only produce the amount ofbreastmilk that her baby demands. It is true that hormones drive the production of very early breastmilk, called colostrum. However, in order to keep producing breastmilk, your baby needs to keep sucking from the breast. The overall level of milk production varies based on the babys amount of sucking and how much milk is actually removed. Questions answered, encouragement given. [facility] Miscellaneous Notes* Note - Evelyne Rios RN - 11/28/2023 7:40 PM EST This note was copied from a baby's chart. Met with mother at infants bedside. States her supply is stable and has no pain with pumping. Mother plans to exclusively pump and feed. Encouraged her to call out for a LC with any questions or concerns. Support given. [facility] Obstetrics Note* Note - Evelyne Rios RN - 11/28/2023 7:40 PM EST This note was copied from a baby's chart. Met with mother at infants bedside. States her supply is stable and has no pain with pumping. Mother plans to exclusively pump and feed. Encouraged her to call out for a LC with any questions or concerns. Support given. [facility]02[facility] Miscellaneous Notes* Note - Enedina Mendoza RN - 11/25/2023 9:40 AM EST This note was copied from a baby's chart. Met with mother at infant's bedside. Reports that pumping has been much better after getting assistance with flange fit. Is pumping every 2-3 hours and getting 3-5oz each time. Denies pain with pumping. No questions/concerns at this time. [facility] Obstetrics Note* Note - Enedina Mendoza RN - 11/25/2023 9:40 AM EST This note was copied from a baby's chart. Met with mother at infant's bedside. Reports that pumping has been much better after getting assistance with flange fit. Is pumping every 2-3 hours and getting 3-5oz each time. Denies pain with pumping. No questions/concerns at this time. [facility] Miscellaneous Notes* Note - Kraina Garcia RN - 11/21/2023 2:48 PM EST This note was copied from a baby's chart. Met with mother at 's bedside. States that pumping is going much better. She has been able toget smaller flange sizes which are much more comfortable for her and as such, has seen an increase in her milk supply. She has been getting 100mls + every three hours. Mom does say that sometimes shedoesn't feel like she empties completely, we discussed the use of heat and massage to help completely empty ducts while pumping. No further question, encouraged to call out for any other assistance. [facility] Obstetrics Note* Note - Karina Garcia RN - 11/21/2023 2:48 PM EST This note was copied from a baby's chart. Met with mother at infant's bedside. States that pumping is going much better. She has been able toget smaller flange sizes which are much more comfortable for her and as such, has seen an increase in her milk supply. She has been getting 100mls + every three hours. Mom does say that sometimes shedoesn't feel like she empties completely, we discussed the use of heat and massage to help completely empty ducts while pumping. No further question, encouraged to call out for any other assistance. [facility]02[facility] History of Present illness Narrative* Peggy Workman MD - 11/19/2023 10:45 AM EST Images from the original note were not [...] 07/21/2017 Performed by Gustavo Murcia MD at [facility] N/A 11/11/2023 [facility] by Livier Hook [facility]A 07/21/2017 Performed by Gustavo Murcia MD at [facility] RADIO FREQUENCY TURBINATE NASAL Bilateral 07/21/2017 Performed by Gustavo Murcia MD at [facility] MEDICAL HX History reviewed. No pertinent past medical history. ALLERGIES No Known Allergies FAMILY HX History reviewed. No pertinent family history. MEDS Current Outpatient Medications Medication Sig Dispense Refill acetaminophen (TYLENOL EXTRA STRENGTH) 500 mg tablet Take 2 tablets (1,000 mg total) by mouth every8 (eight) hours. 30 tablet 0 docusate sodium (COLACE) 100 mg capsule Take 1 capsule (100 mg total) by mouth in the morning and 1capsule (100 mg total) before bedtime. 60 capsule 0 ibuprofen (MOTRIN) 800 mg tablet Take 1 tablet (800 mg total) by mouth every 8 (eight) hours. 30 tablet 0 [id number] 29-1-400 mg combo pack,tablet & cap,DR Take [...] and discussed with MD Peggy Sanchez MD [employer] Travel Counselor Resident PGY-4 11/19/23 10:49 AM * Heather Oseguera RN - 11/19/2023 10:45 AM EST Seen today for PP visit following C/S 11/11 States vaginal bleeding is light States incision is healing well states occasional pain on right side States pumping for baby in NICU, states baby is doing well States feeling lumps in breasts, unsure if its from pumping EPDS: 1 * Tracey Shah MD - 11/19/2023 10:45 AM EST Attending Attestation: I saw the patient on 11/19/23. I participated and was physically present during the critical/irvin portions of the service. I was directly involved in the management and treatment plan of the patient. Ireviewed the resident's note. Additional Notes/Findings: S/p on [...] 4-6 weeks for exam documented in [facility] Miscellaneous Notes* Note - Dianne Craig RN - 11/18/2023 11:14 AM EST This note was copied from a baby's chart. Met with mom at infants bedside. Assessed mom while pumping d/t right nipple damage. Noted scab on right nipple. Mom was pumping with a 21.5mm flange and suggested to pump with a 19 or 20mm to help with discomfort. Encouraged to use neosporin x2 a day to help with comfort. Discussed S/S of mastitisand what to watch out for. After discussion mom was comfortable with pumping. She is using lanolin cream and hydrogel pads for comfort. All questions answered. Mastitis is an inflammation of breast tissue that sometimes involves an infection. The inflammationresults in breast pain, swelling, warmth and redness. [...] process. Chronic engorgement, over pumping or trying toempty the breasts, all increase the risk of [...] which part of the breast is inflamed. Somemothers have described a color change as triangular [...] inflammation alternating with acetaminophen/paracetamol (for example,Tylenol , Panadol) to help with pain. If you: Do [...] to breastfeed or pump. [facility] Obstetrics Note* Note - Dianne Craig RN - 11/18/2023 11:14 AM EST This note was copied from a baby's chart. Met with mom at infants bedside. Assessed mom while pumping d/t right nipple damage. Noted scab on right nipple. Mom was pumping with a 21.5mm flange and suggested to pump with a 19 or 20mm to help with discomfort. Encouraged to use neosporin x2 a day to help with comfort. Discussed S/S of mastitisand what to watch out for. After discussion mom was comfortable with pumping. She is using lanolin cream and hydrogel pads for comfort. All questions answered. Mastitis is an inflammation of breast tissue that sometimes involves an infection. The inflammationresults in breast pain, swelling, warmth and redness. [...] process. Chronic engorgement, over pumping or trying toempty the breasts, all increase the risk of [...] which part of the breast is inflamed. Somemothers have described a color change as triangular [...] inflammation alternating with acetaminophen/paracetamol (for example,Tylenol , Panadol) to help with pain. If you: Do [...] you are able to breastfeed or pump. [facility] [employer] [id number] Miscellaneous Notes* Note - Dianne Craig RN - 11/17/2023 9:27 AM EST This note was copied from a baby's chart. Saw mom at infants bedside. Attempting to latch almost every feed for about 10mins having a couple of sucks. States no concerns with pumping or latching. Encourage mom to continue to latch and followcues. All questions answered. documented in [facility] encounter[facility] Obstetrics Note* Note - Dianne Craig RN - 11/17/2023 9:27 AM EST This note was copied from a baby's chart. Saw mom at infants bedside. Attempting to latch almost every feed for about 10mins having a couple of sucks. States no concerns with pumping or latching. Encourage mom to continue to latch and followcues. All questions answered. [facility]02-[facility] Miscellaneous Notes* Note - Evelyn Reed RN - 11/15/2023 12:30 PM EST This note was copied from a baby's chart. RN paged LC to patient's room for request of rental pump. Contract reviewed and signed per patient and LC. Rental pump reviewed and provided. Denies any questions regarding pump. States pumping is going well and supply is increasing. Patient verbalizes she is pumping every 3 hours. No complaints ofpain or discomfort. Encouraged breast attempts when cueing and have reached scores per NICU staff. Denies any questions or concerns at this time. Enc to call out at bedside for support as needed.Verbalized understanding. documented in this encounterCl[facility] Obstetrics Note* Note - Eevlyn Reed RN - 11/15/2023 12:30 PM EST This note was copied from a baby's chart. RN paged LC to patient's room for request of rental pump. Contract reviewed and signed per patient and LC. Rental pump reviewed and provided. Denies any questions regarding pump. States pumping is going well and supply is increasing. Patient verbalizes she is pumping every 3 hours. No complaints ofpain or discomfort. Encouraged breast attempts when cueing and have reached scores per NICU staff. Denies any questions or concerns at this time. Enc to call out at bedside for support as needed.Verbalized understanding. [employer] [id number] Evaluation note* Encounter Date Diagnosis Assessment Notes Treatment Notes Treatment Clinical Notes Mar, Wellness examination (ICD-10 - Z 00.00) Overall, patient is doing well. She does mention concerns about her weight -- her lab results do not lend any clues. I suspect much of this is diet related, so we've had extensive discussion regarding healthy diet, exercise, and weight loss strategy. She will RTC at her convenience if she continuesto struggle. Otherwise, continue current care. [facility] Other 06-21-2023 Evaluation note* Encounter Date Diagnosis Assessment Notes Treatment Notes Treatment Clinical Notes Feb, Wellness examination (ICD-10 - Z 01.89) Feb,Screening for metabolic disorder (ICD-10 - Z13.228) Feb,Screening for cardiovascular condition (ICD-10 - Z13.6) Feb,Weight gain (ICD-10 - R63.5) [facility] Other 10-31-2022 Evaluation note* Encounter Date Diagnosis Assessment Notes Treatment Notes Treatment Clinical Notes Jun, RLQ abdominal pain (ICD-10 - R10 .31) Jun,2RUQ abdominal pain (ICD-10 - R10.11) [facility] Other 10-22-2022 NoteEducation Materials Elevated Blood Pressure [...] chicken without skin, beans, eggs, (more content notincluded)...[facility] 07-31-2021 Evaluation note* Encounter Date Diagnosis Assessment Notes Treatment Notes Treatment Clinical Notes Jul, Moderate single curr ent episode of major depressive disorder (ICD- 10 - F32.1) Controlled. Continue current care. Immediate medical attention for any SI/HI or other change/worsening. Call with questions/concerns. Jul,Menorrhagia with regular cycle (ICD-10 - N92.0) Suspect this may be related to her Nexplanon. I've recommended she discuss with her television agent, Dr. Harris, whether or not this should be removed and if she should consider alternative forms of contraception. I've offered to check CBC, Iron, and TSH, but patient prefers to meet with Dr. Harris first. [facility] Other 11-01-2017 History general Narrative - Reported* Type Description Date Medical History Depression Medical Historybroken fingers from sportsMedical Historysprained right ankle - basketballMedical HistoryContusion to the Right Ankle - SoccerSurgical History [id number] HistoryChild [facility] Other Evaluation noteNo InformationNort Future [employer] Other Evaluation noteNo assessment information available [facility] Work Phone: Evaluation note* Diagnosis Onset Date Resolution Status Menorrhagia with regular cycle acuteEncounter for wellness examinationnonAs[facility] Work Phone: Evaluation note* Diagnosis Onset Date Resolution Status Menorrhagia with regular cycle acuteEncounter for wellness examinationnoneactiveSore throatnonAshtabula General Hospital Work Phone: Evaluation note* Diagnosis [...] with irregular cycle [facility] Diagnosis Encounter for IUD insertion Insertion of intrauterine contraceptive device [facility]* Diagnosis Surgical followup- Primary [facility] Diagnosis Encounter for visit- Primary [facility] Diagnosis Weight gain- Primary [...] (chronic) Other fatigue [facility]* Diagnosis Well woman exam with routine gynecological exam Routine gynecological examination documented in this encounter [facility]* Diagnosis Medication care plan discussed with patient Encounter for weight management documented in this encounter [facility]* Diagnosis Encounter for weight management documented in this encounter [facility]* Diagnosis Wellness examination- Primary Encounter for immunization Overweight Menorrhagia with irregular cycle PCOS (polycystic ovarian syndrome) Polycystic ovaries Iron deficiency anemia due to chronic blood loss Iron deficiency anemia secondary to blood loss (chronic) Seasonal allergic rhinitis due to pollen Deviated septum Deviated nasal septum S/P adenoidectomy Other postprocedural status Recurrent major depressive disorder, in full remission Chronic idiopathic constipation Unspecified constipation Vitamin D deficiency documented in this encounter [facility]* Diagnosis Encounter for weight management Vaginal discharge Leukorrhea, not specified as infective documented in this encounter [facility]* Diagnosis Pre-op examination Encounter for weight management documented in this encounter [facility] HealthcareInstructionsNot on filedocumented in this encounterProSamaritan [facility] SystemInstructionsNot on filedocumented in this encounterMcKitrick Hospital SystemInstructionsNot on filedocumented in this encounterProSamaritan [facility] System Summary Purpose Family History Relationship Condition Age at Onset Recorded Date/T jim Not Specified No pertinent family history Unknown Advance Directives Advance Directive Response Recorded Date/ Time Advance Directives No October 12:00pm Code StatusDate ActivatedDate InactivatedCommentsFull Code08/28/2023 6:14 PM 11/13/2023 6:20 PMCode StatusDate ActivatedDate InactivatedCommentsFull Code 02/24/2020 6:30 PM02/25/2020 2:46 PM Chief Complaint and Reason for Visit Chief Complaint z39.1 Chief Complaint annual Reason for Visit Menorrhagia with reg ular cycle Encounter for wellness examination Chief Complaint annual Sore throat, b/l ear discomfortReason for VisitMenorrhagia with regular cycle Encounter for wellness examination Sore throat Additional Source Comments REASON FOR VISIT (unrecogniz ed section and content) ReasonCommentsContraceptionRemoval of Nexplanon and String checkReasonComments Menstrual ProblemReasonCommentsIUD insertionReasonCommentsPostpartum CareReason CommentsWell Women VisitReasonCommentsdiscuss medicationReasonCommentsencounter for weight managementReasonCommentsencounter for weight managementSTI Screening ReasonCommentsPre-op VisitWeight Management INFORMATION SOURCE (unrecogn ized section and content) DATE CREATED AUTHOR 07/26/2022 [facility] DATE CREATED AUTHOR AUTHOR'S ORGANIZ ATION 12/17/2023 [facility] DATE CREATED AUTHOR AUTHOR'S ORGANIZ ATION 01/23/2024 [facility] DATE CREATED AUTHOR AUTHOR'S ORGANIZ ATION 01/21/2025 [facility] DATE CREATED AUTHOR AUTHOR'S ORGANIZ ATION 07/27/2025 [facility] EPIC Care Teams (unrecognized sec tion and content) Team Status: Active Member Role Status Dates Mishel Dimas DO Primary Care Provider Active Team Status: Inactive Member Role Status Dates Mishel Dimas DO Primary Care Provider, Attendin g Provider Active Team Status: Inactive Member Role Status Dates Mishel Dimas DO Primary Care Provider Active Start: January 02, 2024 End: January 01Ann Braden ProviderActiveStart: January 02, 2024 End: January 02, 2024 Team Status: Inactive Member Role Status Dates Mishel Dimas DO Primary Care Prov ider, Attending Provider Active Start: April 09, 2024 End: April 09, 2024 Team Status: Inactive Member Role Status Dates Mishel Dimas DO Primary Care Provider Active Start: April 14, 2024 End: April 14, 2024Esperanza Castillo ProviderActiveStart: April 14, 2024 End: April 14, 2024Team MemberRelationshipSpecialtyStart DateEnd Date Noemi Yoo MD [address] [place] [id number] PCP - GeneralFamily Medicine06/24/24 Jennifer Herrera PA [address] [facility] [address] [place] [address] Physician Assistantmily Medicine06/24/24Team MemberRelationshipSpecialtyStart DateEnd Date Noemi Yoo MD [address] [facility] [address] [place] [address] PCP - GeneralFamily Medicine06/24/24 Jennifer Herrera PA [address] [facility] [address] [place] [address] Physician AssistantBoston Lying-In Hospital Medicine06/24/24Team MemberRelationshipSpecialtyStart DateEnd Date Mishel Dimas MD NPI: [id number] [place] [id number] PCP - GeneralFamily Medicine04/14/23Team MemberRelationshipSpecialtyStart DateEnd Date Mishel Dimas MD NPI: [id number] [place] [phone] PCP - GeneralFamily Medicine04/14/23Team MemberRelationshipSpecialtyStart DateEnd Date Mishel Dimas MD NPI: [id number] [place] [phone] PCP - GeneralFamily Medicine04/14/23Team MemberRelationshipSpecialtyStart DateEnd Date Mishel Dimas MD NPI: [id number] [place] [phone] PCP - GeneralFamily Medicine04/14/23Team MemberRelationshipSpecialtyStart DateEnd Date Mishel Dimas MD NPI: [id number] [place] [address] PCP - GeneralFamily Medicine04/14/23Team MemberRelationshipSpecialtyStart DateEnd Date Mishel Dimas, DO NPI: [id number] [place] [address] PCP - Generalmily Medicine06/23/17am MemberRelationshipSpecialtyStart DateEnd Date Mishel Dimas, DO NPI: [id number] [place] [phone] PCP - GeneralFamily Medicine06/23/17Team MemberRelationshipSpecialtyStart DateEnd Date Mishel Dimas, DO NPI: [id number] [place] [phone] PCP - GeneralFamily Medicine06/23/17Team MemberRelationshipSpecialtyStart DateEnd Date Mishel Dimas, DO NPI: [id number] [place] [address] PCP - GeneralFamily Medicine06/23/17Team MemberRelationshipSpecialtyStart DateEnd Date Noemi Yoo MD [address] [place] [phone] PCP - Generalmily Medicine06/24/24 Jennifer Herrera PA [address] [place] [address] [place] [address] Physician AssistantBoston [facility]-In Hospital Medicine06/24/24Team MemberRelationshipSpecialtyStart DateEnd Date Noemi Yoo MD [address] [place] [address] [place] [address] PCP - GeneralBoston Lying-In Hospital Medicine06/24/24 Jennifer Herrera, PA [address] [place] [address] [place] [address] Physician AssistantNorthside Hospital [facility]06/24/24Team MemberRelationshipSpecialtyStart DateEnd Date Noemi Yoo MD [address] [facility] [facility] [address] [place] [address] [facility] - [facility]24 Jennifer Herrera PA [address] [place] [address] Physician Assistant[facility] Medicine06/24/24Team MemberRelationshipSpecialtyStart DateEnd Date Noemi Yoo MD [address] [place] [address] P[facility] - [facility]06/24/24 Jennifer Herrera PA [address] [place] [address] Phys[facility]06/24/24Team MemberRelationshipSpecialtyStart DateEnd Date Noemi Yoo MD [address] [place] [address] PCP - GeneralFamily Medicine06/24/24 Jennifer Herrera PA [address] [facility] [address] [place] [address] Physician Assistantmily Medicine06/24/24Team MemberRelationshipSpecialtyStart DateEnd Date Noemi Yoo MD [address] [facility] [address] [place] [address] PCP - GeneralFamily Medicine06/24/24 Jennifer Herrera PA [address] [facility] [address] [place] [address] Physician Assistantmily Medicine06/24/24Team MemberRelationshipSpecialtyStart DateEnd Date Noemi Yoo MD [address] [facility] [address] [place] [address] PCP - GeneralFamily Medicine06/24/24 Jennifer Herrera PA [address] [facility] [address] [place] [address] Physician AssistantFamily Medicine06/24/24Team MemberRelationshipSpecialtyStart DateEnd Date Noemi Yoo MD [address] [facility] [address] [place] [address] PCP - GeneralFamily Medicine06/24/24 Jennifer Herrera PA [address] [facility] [address] [place] [address] Physician Assistantmily Medicine06/24/24Team MemberRelationshipSpecialtyStart DateEnd Date Noemi Yoo MD [address] [place] [address] PCP - GeneralFamily Medicine06/24/24 Jennifer Herrera PA [address] [place] [address] Physician AssistantFamily Medicine06/24/24Team MemberRelationshipSpecialtyStart DateEnd Date Noemi Yoo MD [address] [facility] [address] [place] [address] PCP - GeneralFamily Medicine06/24/24 Jennifer Herrera PA [address] [facility] [address] [place] [address] Physician Assistantmily Medicine06/24/24Team MemberRelationshipSpecialtyStart DateEnd Date Noemi Yoo MD [address] [facility] [address] [place] [address] PCP - GeneralFamily Medicine06/24/24 Jennifer Herrera PA [address] [facility] [address] [place] [address] Physician Assistantmily Medicine06/24/24Team MemberRelationshipSpecialtyStart DateEnd Date Mishel Dimas MD PCP - GeneralFamily Medicine Noemi Yoo MD [address] [facility] [address] [place] [address] PCP - GeneralFamily Medicine06/24/24 Jennifer Herrera PA [address] [facility] [address] [place] [address] Physician AssistantFamijose [facility]06/24/24 Goals (unrecognized section and content) Goals may [...] BE BASED ON THE PRIMARY CLINICAL RECORDS. [email or web address] provides no warranty or guarantee of the accuracy or completeness of information in this document.
--- NOTE | 2025-08-19 11:56 | PM.ONB ---
Brief Operative Note Date of procedure: 08/19/25 Pre-op diagnosis general: desires permanent sterilization Post-op diagnosis: same as pre-op Procedure: NAME OF PROCEDURE: robotic assisted bilateral laparoscopic salpingectomy PROCEDURE: The patient was taken back to the Operating Room where she was given general anesthesia without difficulty. She was then prepped and draped in the normal sterile fashion after being placed in a dorsal lithotomy position. A wet sponge stick was placed into the patient's vagina. Attention was then turned to the patient's abdomen, where a scalpel was used to make a small infraumbilical incision. The S retractors were then used to dissect the underlying layers until the fascia could be seen. The fascia was then grasped with Siomara clamps and tented up. A knife was then used to make a small incision to the fascia. The muscle was identified, at that time two sutures of #0 Vicryl on a GI needle was then used and placed through the fascia. the peritoneum was then identified and entered bluntly. The 10-4 Jorge was then placed into the patient's abdomen. This was confirmed with direct visualization of the bowel, using the laparoscope. The patient's abdomen was then insufflated using approximately 4 liters of CO2 gas. Survey of the patient's abdomen demonstrated ovaries were normal in appearance as well as both tubes and uterus. A second and third rt and lt lateral robotic ports which were 8 mm in size, was then placed after the skin incision was made under direct visualization . the robotic arms were engaged. The patient's tube on the patient's right side was identified and tented up using a grasper, the ligasure apparatus was then used to come across the mesosalpingx from the fimbriated end to the insertion site at the uterus, the tube was then amputated and removed in its entirety. This was done on the contralateral side. The tubes were the removed from the patients abdomen. Excellent hemostasis was noted. The lateral ports were then moved under direct visualization with excellent hemostasis. All instruments were removed from the patient's abdomen. The fascia was closed using the #0 Vicryl on GI needle. The skin was closed using 4-0 Vicryl subcuticularly. All instruments were removed from the patient's vagina as well. The patient was taken out of the dorsal lithotomy position and placed in the supine position and taken to recovery in stable condition. Sponge, lap and needle counts were correct x2. Anesthesia: LULY Surgeon: [facility]in [facility] [employer] Professor: Francine Rolon Estimated blood loss (mL): 5 Pathology: other (tubes) Condition: stable Disposition: PACU
[2025-08-19] MEDS: PROMETHAZINE HCL 25 MG TABLET PO (13:43)
--- NOTE | 2025-08-19 14:00 | PC.NURSE ---
1343: pt ambulates to bathroom,voids without difficulty. pt became nauseated while ambulating,pt medicated with PO Phenergan at 1343,cool wash cloth applied to forehead. pt returns to bed.
--- NOTE | 2025-08-19 14:43 | PC.NURSE ---
1430: dressing to umbilicus changed by fiction and nonfiction prose writer, dressing with moderate amount of bloody drainage. new telfa dressing applied,educated pt on changing the dressing if needed at home. the site was not actively bleeding when the dressing was being changed.
== END 2025-08-19 14:35 | disposition home or self-care (01) ==
PROVIDERS: PCP Physician Assistant; Visit Provider Obstetrics & Gynecology
PROC: (CPT 840; principal; 2025-08-19 10:15)
DX: Z30.2 Encounter for sterilization (principal); N83.8 Other noninflammatory disorders of ovary, fallopian tube and broad ligament; F32.A Depression, unspecified
CPT/HCPCS: 58661; 36415; 84702; 85025; 88302; J0131; J1100; J1171; J1885; J2003; J2250; J2405; J2704; J3010; Q0169